=== PATIENT | female | born 1945 | race Caucasian/White ===

== ENCOUNTER → 2019-04-09 18:57 | Outpatient (BNVA) | payer MEDICARE, OTHER, SELFPAY | PROVIDERS: Family Provider Family Medicine; PCP Family Medicine; Visit Provider Nurse Practitioner | DX: J02.9 Acute pharyngitis, unspecified (principal); R09.82 Postnasal drip; J31.0 Chronic rhinitis | CPT/HCPCS: 87081; 87880 ==

== ENCOUNTER 2019-04-30 14:26 | Outpatient (CLI) | payer MEDICARE, OTHER, SELFPAY ==
[2019-04-30 15:30] LABS: Basophils % 0.2 %; Eosinophils # 0.6 10^3/uL (0.0-0.8); Eosinophils % 10.6 %; Hematocrit 37.6 % (37.0-47.0); Hemoglobin 12.6 g/dL (11.5-15.3); Lymphocytes # 1.8 10^3/uL (0.8-4.8); Lymphocytes % 32.1 %; Mean Corpuscular HGB Conc 33.5 g/dL (30.0-36.0); Mean Corpuscular Hemoglobin 32.2 pg (28.0-34.0); Mean Corpuscular Volume 96.2 fL (81-99); Mean Platelet Volume 9.3 fL (7.4-10.4); Monocytes # 0.5 10^3/uL (0.2-0.9); Monocytes % 8.4 %; Neutrophils # 2.6 10^3/uL (1.8-7.7); Neutrophils % 48.3 %; Nucleated Red Blood Cells % 0 %; Platelet Count 167 10^3/cmm (130-400); Red Blood Count 3.91 10^6/uL (4.1-5.3); Red Cell Distribution Width 13.5 % (12.1-15.1); White Blood Count 5.5 10^3/uL (4.0-10.0)
[2019-04-30 15:51] LABS: Alanine Aminotransferase 16 U/L (0-33); Albumin Level 4.3 g/dL (3.5-5.2); Alkaline Phosphatase 70 IU/L (35-105); Anion Gap 14.6 (5-19); Aspartate Amino Transferase 19 U/L (0-32); Blood Urea Nitrogen 18 mg/dL (8-23); Calcium 9.6 mg/dL (8.5-10.5); Carbon Dioxide 29 mmol/L (22-29); Chloride 99 mmol/L (98-107); Free T4 Free Thyroxine 1.33 ng/dL (0.82-1.77); Globulin 1.9 g/dL (1.3-4.6); Glucose 112 mg/dL (65-115); Lactate Dehydrogenase 220 U/L (135-214); Potassium 3.6 mmol/L (3.5-5.1); Sodium 139 mmol/L (136-145); Thyroid Stimulating Hormone 4.13 uIU/mL (0.27-4.20); Total Bilirubin 0.3 mg/dL (0.15-1.2); Total Protein 6.2 g/dL (6.6-8.7)
--- NOTE | 2019-05-03 07:32 | ONC FU_ITS ---
Dr. Pablo Patient Follow-Up Note Patient: Lexy Chawla Unit #: [id number]: 1945 Dicatated By: Wade Pablo M.D.Date of Visit:Apr 30, 2019 Onc Med Follow-up/Prog Note Chief Complaint: Lymphoma. 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 She had presented with an enlarging right supraclavicular mass. A CT of the neck on 02/02/2015 showed right supraclavicular lymphadenopathy, prominent nasopharyngeal soft tissue and a small right upper lobe pulmonary nodule. An ultrasound guided biopsy on 02/02/2015 revealed germinal cell phenotype diffuse large B-cell lymphoma, with immunohistochemistry positive for CD20, CD10, mom 1, BCL 2 and BCL 6. Ki-67 was elevated at 80-90%. Non-Hodgkin???s lymphoma panel by FISH was positive for BCL 6 rearrangement, MYC rearrangement, IGH/MYC translocation, and IGH rearrangement. Double hit lymphoma was suspected. She was first seen by Dr. Rausch on 02/17/2015. MYC rearrangement was confirmed by IHC. Bone marrow biopsy was negative for involvement. Staging PET/CT on 02/21/2015 showed single right supraclavicular lymph node with SUV of 25.7 and spleen with SUV was 7.5. Direct visualization of nasopharyngeal tissue by ENT surgeon was unrevealing, thus clinical stage IIIA disease. Right-sided Port-A-Cath placed. Hepatitis B serology was negative. Echocardiogram showed EF 45-50%. MUGA scan showed EF 61.5%. Uric acid 6.1, creatinine 1.0, baseline LDH increased at 270. Because of significant disconnect between ultrasound and the nuclear study of ejection fraction, anthracycline therapy was not recommended until further evaluation. She received 2 cycles of R-CEOP regimen on 03/11/14 - 04/01/15. She tolerated it remarkably well, although she had some mild thrombocytopenia and mild mucositis. Her further cardiac workup showed a preserved ejection fraction by Sestamibi stress test. As such, she was recommended to receive dose adjusted R- EPOCH therapy under the care of Dr. Brown at [facility]. Cycle 2 of R- EPOCH with escalated doses was delivered on 05/18/2015. She developed an acute right arm superficial thrombophlebitis and severe pancytopenia. Further evaluation showed an acute left lower extremity DVT and small apical PE. In light of severe chemotherapy-induced pancytopenia, anticoagulation was not possible. She was admitted to the hospital and underwent IVC filter placement. Eliquis was eventually began in May 2015. She completed 4 cycles of R-EPOCH chemotherapy in July 2015. On 08/17/2015 she was hospitalized with diarrhea, vomiting, severe anemia requiring 4 units of packed red blood cell transfusion support while admitted. She was found to have UTI and Campylobacter colitis. She was discharged and completed the course of the antibiotics. 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 She was followed by Dr. Brown at [facility]. She was discharged from the hospital there and has started steroid therapy. She also started replacement IVIG for hypogammaglobulinemia. At that time her diarrhea had been getting worse again. Repeat stool cultures again were negative and the stool also tested negative for Clostridium difficile. She was seen in the emergency room on 01/01/2016. Her evaluation included CT abdomen/pelvis and a renal protocol CT, neither of which showed any acute abnormality. On 01/06/2016 she was started on Valtrex for suspected herpes zoster in the right lumbar distribution. She returned here on 01/21/2016 for a scheduled IVIG infusion. At that time she had increased swelling in the right leg. Venous Doppler showed right lower extremity DVT to the common femoral vein. There was also a small DVT on the left. She restarted anticoagulation with apixaban, which had been stopped the preceding month. Despite anticoagulation with apixaban, she continued to have significant swelling of the right leg, and repeat venous Doppler of the lower extremities on 02/04/2016 showed acute extensive right lower extremity DVT extending into the iliac vein. There was improved but persistent left DVT. At that point her anticoagulation was changed to therapeutic Lovenox. As of her follow-up visit with in in June 2016 she was still having problems with diarrhea. Her Lovenox dosage was reduced to 100 mg once daily, as she was having epistaxis with twice a day dosing. There was no evidence of recurrence of the lymphoma. In September 2016 she presented with an itchy skin eruption on both arms. She also developed a cystic appearing lesion in the left axilla. There was no associated lymphadenopathy. It resolved on treatment with Bactroban topically. Her surveillance CT scans of the chest, abdomen, and pelvis at [facility] on 10/17/2016 showed no findings to suggest recurrent or metastatic disease. Her CT scans at [facility] in April 2017 also showed no evidence of recurrent lymphoma in the chest, abdomen, or pelvis. At that point she had her Port-A-Cath venous access device removed, and she continued on observation/expectant management for the lymphoma. INTERIM HISTORY: In June 2018 she had been admitted to the hospital after presenting to the emergency room with chest pain. CT pulmonary angiogram on 06/18/2018 showed no evidence of pulmonary embolus. There was evidence of bibasilar and lingular subsegmental atelectasis. There was evidence of esophageal dilatation, and there was development of cardiomegaly. There was no axillary, supraclavicular, mediastinal, or hilar adenopathy noted. A subsequent echocardiogram showed normal left ventricular size and systolic function with estimated ejection fraction 55-60%. There were no significant changes compared to a prior echocardiogram from August 2015. With negative CT pulmonary angiogram she had further evaluation with a sestamibi be stress test. It showed a small area of mild reversibility suggestive of a small area of mild ischemia in the basal inferior wall. There were no significant EKG changes noted with the Lexiscan infusion and there was no evidence for Lexiscan induced chest pain or cardiac arrhythmia. She is seen for a follow-up visit. She has been feeling okay, though she does complain about having a lack of energy. She has very limited activity tolerance, as she tires out very quickly, particularly when she is using her arms. Her ECOG score is 2. She has good appetite, and she has continued to gain weight. By our scale she is up 8 pounds since February. She has not had fever. She does have some sweating at night. She recently was seen in urgent care for sore throat and cough. She was treated with antibiotic. At this point she is still having some residual cough, but she does not complain of shortness of breath or chest pain. She occasionally has nausea. She recently had a repeat EGD done in [place]. I did not receive a copy of that report. Her bowel and bladder function have been okay. She has pain in her right knee. She complains that her wrists and hands bother her, especially when she is driving. She has no focal neurologic symptoms. Medications: Cymbalta 1.5 Capsule (of 60 mg) Capsule Delayed Release Particles Oral daily, Levothyroxine Sodium 1 Tablet (of 25 mcg) Oral daily, Metoprolol Tartrate 1 Tablet (of 25 mg) Oral b.i.d., Multivitamin Adult 1 Tablet Oral daily, Pantoprazole Sodium 1 Tablet (of 40 mg) Tablet, enteric coated Oral daily, Ventolin HFA 1 puff(s) (of 108 (90 base) mcg/act) Aerosol, solution Inhalation q 4 hours, Voltaren Gel (jelly) Transdermal PRN, Xarelto 1 (20 mg) Tablet Oral daily Allergies: Clindamycin HCl and Penicillin V Potassium. Review of Systems: Constitutional - Her energy is low. She does some light work at home, but she tires quickly. Her appetite is good and her weight is steadily increasing. No fever, chills or hot flashes. She has some sweating at night. ECOG score is 2, ENMT - No sinus congestion/drainage. No mouth sores. She had a bad cough and sore throat a few weeks ago. She was treated with antibiotics. Her sore throat is gone, but she still has a slight cough. No difficulty swallowing, Hematologic/Lymphatic - No abnormal bruising or bleeding, Respiratory - She has some shortness of breath with activity. No pleuritic pain or hemoptysis, Cardiovascular - No angina pain. No palpitations, Gastrointestinal - She has to take a nausea pill every couple weeks or so. No vomiting. No heartburn or acid reflux. No diarrhea or constipation. No blood in the stool or black stools, Genitourinary (F) - No dysuria or hematuria. No urinary frequency. No urgency or incontinence, Musculoskeletal - She has pain in both wrists and her left knee, Integumentary - No skin complications, Neurologic - She has occasional headaches. She has dizziness if she gets up too quickly. No numbness/paresthesias or other focal neurologic symptoms, Psychiatric - No anxiety or depression. She sometimes takes Melatonin to help her sleep. Vital Signs: Performed on Apr 30, 2019 16:09 Height - 66.00 in Weight - 227.4 lbs (HIGH) BSA - 2.11 sq.m BMI - 36.70 (HIGH) Temperature - 96.0 F (LOW) Pulse - 94 /min Respiration - 18 /min BP - 126/79 mm(hg) O2 Sat - 95 % (LOW) Pain - 0 Physical Examination: Constitutional - She looks pretty good generally, Eyes - Sclerae nonicteric. Conjunctivae clear, ENMT - No lesions noted in the oral cavity, Hematologic/Lymphatic - No cervical, clavicular, or axillary adenopathy, Respiratory - Lungs are clear with good air movement bilaterally, Cardiovascular - Heart rhythm is regular. There is no murmur, gallop, or rub noted, Abdomen - Mildly distended but soft. Liver and spleen are not enlarged. There is no abdominal mass or ascites noted and there is no inguinal adenopathy, Extremities - No edema, Neurologic - No focal neurologic deficits noted. Lab/Imaging: Test performed on Apr 30, 2019 14:48 LDH (Total) 220 U/L Sodium 139 mmol/L T4, Free 1.33 ng/dL TSH 4.13 uIU/mL Potassium 3.6 mmol/L Chloride 99 mmol/L CO2 29 mmol/L Anion Gap 14.6 BUN 18 mg/dL Creatinine 1.1 mg/dL Cr Clearance (Est) 74.17 mL/min Glucose 112 mg/dL Calcium 9.6 mg/dL Protein, Total 6.2 g/dL Albumin 4.3 g/dL Globulin 1.9 g/dL Bilirubin, Total 0.3 mg/dL ALT (SGPT) 16 U/L AST (SGOT) 19 U/L Alkaline Phosphatase 70 IU/L WBC 5.5 10 3/uL RBC 3.91 10 6/uL HGB 12.6 g/dL HCT 37.6 % MCV 96.2 fL MCH 32.2 pg MCHC 33.5 g/dL RDW 13.5 % Platelet Count 167 10 3/cmm MPV 9.3 fL Neutrophils 2.6 10 3/uL Lymphocytes 1.8 10 3/uL Monocytes 0.5 10 3/uL Eosinophils 0.6 10 3/uL Basophils 0.0 10 3/uL Neutrophil % 48.3 % Lymphocyte % 32.1 % Monocyte % 8.4 % Eosinophil % 10.6 % Basophils % 0.2 % Impression: 1. 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 The disease involved right supraclavicular lymph node and spleen. 2. She received R-CEOP regimen for 2 cycles on 03/11/2014 - 04/01/15, because her cardiac ejection fraction was reported depressed at 45-50%. However further MUGA scan and Sestamibi stress test showed preserved ejection fraction, at more than 60%. 3. Her further treatment was changed to dose adjusted R-EPOCH. Cycle 4 completed in July 2015. 4. Her treatment was complicated with severe hematological toxicities, DVT and PE, and infectious colitis. She required hospitalization. She was on anticoagulation with apixaban. 5. She then developed severe pancytopenia with grade 4 neutropenia, severe cold autoimmune hemolytic anemia, and slightly worsening thrombocytopenia from her baseline. She also developed profound high volume diarrhea. The diarrhea initially improved on steroid therapy, but then worsened again. A specific cause was not determined. 6. She has been receiving replacement IVIG for hypogammaglobulinemia. It was last given on 01/21/2016. 7. In January 2016 she was diagnosed with deep vein thrombosis of the both legs, more extensive on the right. She restarted anticoagulation with apixaban. Repeat venous Doppler on 02/04/2016 showed acute extensive deep vein thrombosis of the right leg. She then continued anticoagulation with therapeutic Lovenox. As of June 2016 the dosage was reduced to 100 mg once daily due to recurrent epistaxis. During subsequent follow-up she had gradual improvement in her GI symptoms and in her energy/activity tolerance. She had transitioned her anticoagulation to rivaroxaban as of her follow-up visit in January 2017. Thus far during follow-up there has been no evidence of any further thromboembolism. Her surveillance CT scans at [facility] in April 2017 showed no evidence of recurrence of her lymphoma. In June 2018 she was admitted to the hospital with chest pain. CT pulmonary angiogram showed no pulmonary embolus. There was no evidence of recurrence of her lymphoma. Her subsequent cardiac evaluation was unrevealing. She continued on observation/expectant management for the lymphoma. At this point she continues to complain of lack of energy, and she has very limited activity tolerance. A specific cause has not been determined, but she has continued to gain weight, and that may be a contributing factor. There has been no evidence, though, of recurrence of the lymphoma. Plan: She remains on observation/expectant management. She is scheduled to have follow-up with Dr. Brown in July. I will plan to repeat CT scans in June ahead of that visit, as it will be a one-year interval from her last CT. I will plan a follow-up visit here in 6 months. In the meantime, I will check and see if she may qualify for some type of rehab with physical therapy. Signed By: Wade Pablo M.D. <<Signature on File>>
== END 2019-04-30 14:27 | disposition home or self-care (01) ==
LOC: ONCMED 14:31
PROVIDERS: Family Provider Family Medicine; PCP Family Medicine; Visit Provider Internal Medicine Medical Oncology
DX: Z08 Encounter for follow-up examination after completed treatment for malignant neoplasm (principal); Z85.72 Personal history of non-Hodgkin lymphomas; Z79.01 Long term (current) use of anticoagulants; Z92.21 Personal history of antineoplastic chemotherapy; Z86.711 Personal history of pulmonary embolism; Z95.828 Presence of other vascular implants and grafts; Z87.440 Personal history of urinary (tract) infections; Z86.718 Personal history of other venous thrombosis and embolism
CPT/HCPCS: 36415; 80053; 83615; 84439; 84443; 85025; 99214

== ENCOUNTER 2019-06-10 07:56 | Outpatient (CLI) | payer MEDICARE, OTHER, SELFPAY ==
--- NOTE | 2019-06-10 08:08 | CT_ITS ---
WS: [id number] CT CHEST, ABDOMEN AND PELVIS WITH CONTRAST HISTORY: LYMPHOMA TECHNIQUE: Contiguous 5 mm axial imaging performed through the chest, abdomen and pelvis with IV cont rast, oral contrast has been provided. Coronal and sagittal reformats chest. Coronal and sagittal ref ormats through the abdomen and pelvis. All CT scans at [facility] use at least one of the se dose optimization techniques: automated exposure control; mA and/or kV adjustment per patient size (includes targeted exams where dose is matched to clinical indication); or iterative reconstruction. CONTRAST: Visipaque 320; 95 mL IV. DLP: 2490.59 mGycm COMPARISON: 06/18/2018 and 01/04/[address]: No pulmonary nodule. There is mild subpleural thickening in the periphery of the RIGHT lowe r lobe. Similar to prior studies. No nodule or pneumonia. No mediastinal or hilar adenopathy. Heart s ize is normal. No pericardial or pleural effusion. Oral contrast present within the large portion of the esophagus to the elvira. Normal size aorta and pulmonary artery. Subcutaneous soft tissue nodule in the LEFT breast has been present on prior studies and is probably a sebaceous cyst measuring 1.[address]: Prior cholecystectomy. Long-term stability of a 1.6 cm cyst in the LEFT lobe of the liver . Mild central biliary dilatation is similar to prior studies and probably due to the cholecystectomy . Pancreas and spleen are negative. No adrenal mass. Large cyst upper pole RIGHT kidney measures 10.7 x 8.0 x 9.0 cm. No solid component. No renal obstruction. Mild atrophy of the LEFT kidney. No solid mass or obstruction. Mild atherosclerosis aorta. IVC filter at the level of the renal vein. No adenop athy, free fluid or free air. Appendix is normal. No GI tract obstruction. There are a few scattered diverticula in the sigmoid col on without acute inflammation. Pelvic CT: No free fluid in the pelvis. No adenopathy. Slight increase in thoracic kyphosis. No osteoblastic or osteolytic bone disease. CT/CT chest abd pel w con* IMPRESSION: 1. No lymphadenopathy within chest, abdomen or pelvis. 2. No pulmonary nodule or mass. 3. Prior cholecystectomy with mild stable central biliary dilatation. 4. RIGHT renal and hepatic cysts. 5. Sigmoid diverticulosis without acute diverticulitis. 6. Delayed esophageal emptying or gastroesophageal reflux to the level of the elvira.
[2019-06-10] MEDS: iohexol 300 mg/mL 50 mL Btl PO (09:23)
[2019-06-10] MEDS: iodixanol 320 mg/mL 100mL Btl IV (09:46)
== END 2019-06-10 07:57 | disposition home or self-care (01) ==
LOC: RADWPI 07:59
PROVIDERS: Family Provider Family Medicine; PCP Family Medicine; Visit Provider Internal Medicine Medical Oncology
DX: C85.90 Non-Hodgkin lymphoma, unspecified, unspecified site (principal); Q61.02 Congenital multiple renal cysts; K57.30 Diverticulosis of large intestine without perforation or abscess without bleeding
CPT/HCPCS: 71260; 74177; Q9967

== ENCOUNTER 2019-07-01 12:26 | Outpatient (RCR) | payer MEDICARE, OTHER, SELFPAY | END 2019-07-04 23:59 | disposition home or self-care (01) | LOC: SPT 12:26 | PROVIDERS: Family Provider Family Medicine; PCP Family Medicine; Referring Provider Internal Medicine Medical Oncology; Visit Provider Internal Medicine Medical Oncology | DX: M62.81 Muscle weakness (generalized) (principal); C83.31 Diffuse large B-cell lymphoma, lymph nodes of head, face, and neck | CPT/HCPCS: 97161 ==

== ENCOUNTER 2019-07-05 06:00 | Outpatient (RCR) | payer MEDICARE, OTHER, SELFPAY | END 2019-08-04 23:59 | disposition home or self-care (01) | LOC: SPT 06:00 | PROVIDERS: Family Provider Family Medicine; PCP Family Medicine; Referring Provider Internal Medicine Medical Oncology; Visit Provider Internal Medicine Medical Oncology | DX: M62.81 Muscle weakness (generalized) (principal); C83.31 Diffuse large B-cell lymphoma, lymph nodes of head, face, and neck | CPT/HCPCS: 97110 ==

== ENCOUNTER 2019-07-05 07:50 | Outpatient (CLI) | payer MEDICARE, OTHER, SELFPAY ==
[2019-07-05 14:39] LABS: Basophils % 0.3 %; Eosinophils # 0.2 10^3/uL (0.0-0.8); Eosinophils % 4.6 %; Hematocrit 41.5 % (37.0-47.0); Hemoglobin 13.7 g/dL (11.5-15.3); Lymphocytes # 1.3 10^3/uL (0.8-4.8); Lymphocytes % 32.4 %; Mean Corpuscular Hemoglobin 33.1 pg (28.0-34.0); Mean Corpuscular Volume 100.2 fL (81-99); Mean Platelet Volume 9.5 fL (7.4-10.4); Monocytes # 0.4 10^3/uL (0.2-0.9); Monocytes % 11.3 %; Neutrophils % 51.1 %; Nucleated Red Blood Cells % 0 %; Platelet Count 154 10^3/cmm (130-400); Red Blood Count 4.14 10^6/uL (4.1-5.3); Red Cell Distribution Width 13.3 % (12.1-15.1); White Blood Count 3.9 10^3/uL (4.0-10.0)
[2019-07-05 16:25] LABS: Alanine Aminotransferase 20 U/L (0-33); Albumin Level 4.1 g/dL (3.5-5.2); Alkaline Phosphatase 55 IU/L (35-105); Anion Gap 15.8 (5-19); Aspartate Amino Transferase 18 U/L (0-32); Blood Urea Nitrogen 19 mg/dL (8-23); Calcium 9.3 mg/dL (8.5-10.5); Carbon Dioxide 28 mmol/L (22-29); Chloride 103 mmol/L (98-107); Globulin 2.1 g/dL (1.3-4.6); Glucose 68 mg/dL (65-115); Lactate Dehydrogenase 192 U/L (135-214); Osmolality Calculated 291 mOsm/kg (285-295); Potassium 3.8 mmol/L (3.5-5.1); Sodium 143 mmol/L (136-145); Total Bilirubin 0.2 mg/dL (0.15-1.2); Total Protein 6.2 g/dL (6.6-8.7)
== END 2019-07-05 07:51 | disposition home or self-care (01) ==
LOC: ONCMED 14:19
PROVIDERS: Family Provider Family Medicine; PCP Family Medicine; Visit Provider Internal Medicine Medical Oncology
DX: C83.31 Diffuse large B-cell lymphoma, lymph nodes of head, face, and neck (principal); D80.1 Nonfamilial hypogammaglobulinemia; R00.0 Tachycardia, unspecified
CPT/HCPCS: 36415; 80053; 83615; 85025

== ENCOUNTER 2019-08-05 06:00 | Outpatient (RCR) | payer MEDICARE, OTHER, SELFPAY | END 2019-09-03 23:59 | disposition home or self-care (01) | LOC: SPT 06:00 | PROVIDERS: PCP Family Medicine; Visit Provider Internal Medicine Medical Oncology | DX: M62.81 Muscle weakness (generalized) (principal); C83.31 Diffuse large B-cell lymphoma, lymph nodes of head, face, and neck | CPT/HCPCS: 97110 ==

== ENCOUNTER 2019-10-29 13:54 | Outpatient (CLI) | payer MEDICARE, OTHER, SELFPAY ==
[2019-10-29 14:42] LABS: Basophils % 0.2 %; Eosinophils # 0.5 10^3/uL (0.0-0.8); Eosinophils % 10.9 %; Hematocrit 39.5 % (37.0-47.0); Hemoglobin 13.2 g/dL (11.5-15.3); Lymphocytes # 1.2 10^3/uL (0.8-4.8); Mean Corpuscular HGB Conc 33.4 g/dL (30.0-36.0); Mean Corpuscular Hemoglobin 32.3 pg (28.0-34.0); Mean Corpuscular Volume 96.6 fL (81-99); Mean Platelet Volume 9.2 fL (7.4-10.4); Monocytes # 0.5 10^3/uL (0.2-0.9); Monocytes % 10.3 %; Neutrophils # 2.38 10^3/uL (1.8-7.7); Neutrophils % 52.2 %; Nucleated Red Blood Cells % 0 %; Platelet Count 155 10^3/cmm (130-400); Red Blood Count 4.09 10^6/uL (4.1-5.3); Red Cell Distribution Width 13.2 % (12.1-15.1); White Blood Count 4.6 10^3/uL (4.0-10.0)
[2019-10-29 15:14] LABS: 25 Hydroxy Vitamin D 33 ng/mL (30-100); Alanine Aminotransferase 19 U/L (0-33); Albumin Level 4.3 g/dL (3.5-5.2); Alkaline Phosphatase 64 IU/L (35-105); Anion Gap 10.7 (5-19); Aspartate Amino Transferase 21 U/L (0-32); Blood Urea Nitrogen 18 mg/dL (8-23); Calcium 8.7 mg/dL (8.5-10.5); Carbon Dioxide 29 mmol/L (22-29); Chloride 104 mmol/L (98-107); Globulin 2.3 g/dL (1.3-4.6); Glucose 120 mg/dL (65-115); Lactate Dehydrogenase 224 U/L (135-214); Osmolality Calculated 288 mOsm/kg (285-295); Potassium 3.7 mmol/L (3.5-5.1); Sodium 140 mmol/L (136-145); Thyroid Stimulating Hormone 2.77 uIU/mL (0.27-4.20); Total Bilirubin 0.4 mg/dL (0.15-1.2); Total Protein 6.6 g/dL (6.6-8.7)
[2019-10-29 17:31] LABS: Free T4 Free Thyroxine 1.42 ng/dL (0.82-1.77)
--- NOTE | 2019-11-01 07:07 | ONC FU_ITS ---
Dr. Pablo Patient Follow-Up Note Patient: Lexy Chawla Unit #: [id number]: 1945 Dicatated By: Wade Pablo M.D.Date of Visit:Oct 29, 2019 Onc Med Follow-up/Prog Note Chief Complaint: Lymphoma. 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 She had presented with an enlarging right supraclavicular mass. A CT of the neck on 02/02/2015 showed right supraclavicular lymphadenopathy, prominent nasopharyngeal soft tissue and a small right upper lobe pulmonary nodule. An ultrasound guided biopsy on 02/02/2015 revealed germinal cell phenotype diffuse large B-cell lymphoma, with immunohistochemistry positive for CD20, CD10, mom 1, BCL 2 and BCL 6. Ki-67 was elevated at 80-90%. Non-Hodgkin???s lymphoma panel by FISH was positive for BCL 6 rearrangement, MYC rearrangement, IGH/MYC translocation, and IGH rearrangement. Double hit lymphoma was suspected. She was first seen by Dr. Rausch on 02/17/2015. MYC rearrangement was confirmed by IHC. Bone marrow biopsy was negative for involvement. Staging PET/CT on 02/21/2015 showed single right supraclavicular lymph node with SUV of 25.7 and spleen with SUV was 7.5. Direct visualization of nasopharyngeal tissue by ENT surgeon was unrevealing, thus clinical stage IIIA disease. Right-sided Port-A-Cath placed. Hepatitis B serology was negative. Echocardiogram showed EF 45-50%. MUGA scan showed EF 61.5%. Uric acid 6.1, creatinine 1.0, baseline LDH increased at 270. Because of significant disconnect between ultrasound and the nuclear study of ejection fraction, anthracycline therapy was not recommended until further evaluation. She received 2 cycles of R-CEOP regimen on 03/11/14 - 04/01/15. She tolerated it remarkably well, although she had some mild thrombocytopenia and mild mucositis. Her further cardiac workup showed a preserved ejection fraction by Sestamibi stress test. As such, she was recommended to receive dose adjusted R- EPOCH therapy under the care of Dr. Brown at [facility]. Cycle 2 of R- EPOCH with escalated doses was delivered on 05/18/2015. She developed an acute right arm superficial thrombophlebitis and severe pancytopenia. Further evaluation showed an acute left lower extremity DVT and small apical PE. In light of severe chemotherapy-induced pancytopenia, anticoagulation was not possible. She was admitted to the hospital and underwent IVC filter placement. Eliquis was eventually began in May 2015. She completed 4 cycles of R-EPOCH chemotherapy in July 2015. On 08/17/2015 she was hospitalized with diarrhea, vomiting, severe anemia requiring 4 units of packed red blood cell transfusion support while admitted. She was found to have UTI and Campylobacter colitis. She was discharged and completed the course of the antibiotics. 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 She was followed by Dr. Brown at [facility]. She was discharged from the hospital there and has started steroid therapy. She also started replacement IVIG for hypogammaglobulinemia. At that time her diarrhea had been getting worse again. Repeat stool cultures again were negative and the stool also tested negative for Clostridium difficile. She was seen in the emergency room on 01/01/2016. Her evaluation included CT abdomen/pelvis and a renal protocol CT, neither of which showed any acute abnormality. On 01/06/2016 she was started on Valtrex for suspected herpes zoster in the right lumbar distribution. She returned here on 01/21/2016 for a scheduled IVIG infusion. At that time she had increased swelling in the right leg. Venous Doppler showed right lower extremity DVT to the common femoral vein. There was also a small DVT on the left. She restarted anticoagulation with apixaban, which had been stopped the preceding month. Despite anticoagulation with apixaban, she continued to have significant swelling of the right leg, and repeat venous Doppler of the lower extremities on 02/04/2016 showed acute extensive right lower extremity DVT extending into the iliac vein. There was improved but persistent left DVT. At that point her anticoagulation was changed to therapeutic Lovenox. As of her follow-up visit with me in June 2016 she was still having problems with diarrhea. Her Lovenox dosage was reduced to 100 mg once daily, as she was having epistaxis with twice a day dosing. There was no evidence of recurrence of the lymphoma. In September 2016 she presented with an itchy skin eruption on both arms. She also developed a cystic appearing lesion in the left axilla. There was no associated lymphadenopathy. It resolved on treatment with Bactroban topically. Her surveillance CT scans of the chest, abdomen, and pelvis at [facility] on 10/17/2016 showed no findings to suggest recurrent or metastatic disease. Her CT scans at [facility] in April 2017 also showed no evidence of recurrent lymphoma in the chest, abdomen, or pelvis. In June 2018 she had been admitted to the hospital after presenting to the emergency room with chest pain. CT pulmonary angiogram on 06/18/2018 showed no evidence of pulmonary embolus. There was evidence of bibasilar and lingular subsegmental atelectasis. There was evidence of esophageal dilatation, and there was development of cardiomegaly. There was no axillary, supraclavicular, mediastinal, or hilar adenopathy noted. A subsequent echocardiogram showed normal left ventricular size and systolic function with estimated ejection fraction 55-60%. There were no significant changes compared to a prior echocardiogram from August 2015. With negative CT pulmonary angiogram she had further evaluation with a sestamibi be stress test. It showed a small area of mild reversibility suggestive of a small area of mild ischemia in the basal inferior wall. There were no significant EKG changes noted with the Lexiscan infusion and there was no evidence for Lexiscan induced chest pain or cardiac arrhythmia. Surveillance CT scans on 06/10/2019 showed no lymphadenopathy within the chest, abdomen, or pelvis and no other evidence of disease progression. She continued on observation/expectant management for the lymphoma. She is seen for a follow-up visit. She has been feeling pretty good generally. He still has limited activity, but she has been using a stair stepper at home and she is able to do light work. ECOG score is 1. She has good appetite. She has not had fever. She says the back of her neck is sometimes wet when she wakes up in the morning. She has been getting some small mouth sores, mainly on the cheeks and tip of the tongue. She has some shortness of breath, but her breathing generally is okay. She has a little bit of cough in the evening. She does not complain of chest pain. She occasionally has nausea. Her bowel function is somewhat inconsistent with intermittent episodes of diarrhea. She continues to have some bladder leakage. She occasionally feels a little achy, but she otherwise is not having joint or bone pain. She has just occasional headache and she occasionally has dysequilibrium. 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 Medications: Cymbalta 1.5 Capsule (of 60 mg) Capsule Delayed Release Particles Oral daily, Levothyroxine Sodium 1 Tablet (of 25 mcg) Oral daily, Metoprolol Tartrate 1 Tablet (of 25 mg) Oral b.i.d., Multivitamin Adult 1 Tablet Oral daily, Pantoprazole Sodium 1 Tablet (of 40 mg) Tablet, enteric coated Oral daily, Ventolin HFA 1 puff(s) (of 108 (90 base) mcg/act) Aerosol, solution Inhalation q 4 hours, Voltaren Gel (jelly) Transdermal PRN, Xarelto 1 (20 mg) Tablet Oral daily Allergies: Clindamycin HCl and Penicillin V Potassium. Review of Systems: Constitutional - She has been exercising at home and she is able to do light work. Her appetite is good. She has gained weight. She has not had fever. She has had some mild night sweating. ECOG score is 1, ENMT - She has had a few sores in her mouth. No sore throat or difficulty swallowing, Respiratory - She has some shortness of breath, but her breathing is okay. She tends to have some cough in the evening. No pleuritic pain or hemoptysis, Cardiovascular - No angina pain. No palpitations, Gastrointestinal - She occasionally has nausea. No heartburn or acid reflux. Her bowels are inconsistent with intermittent episodes of diarrhea. No blood in the stool or black stools, Genitourinary (F) - No dysuria or hematuria. No urinary frequency. She has some bladder leakage, Musculoskeletal - Her joints are occasionally a little achy, Integumentary - No skin rash, Neurologic - She occasionally has headache. The neuropathy in her feet is still bothering her a lot, Psychiatric - She occasionally has depression. She has been sleeping pretty well. Vital Signs: Performed on Oct 29, 2019 15:32 Height - 66.00 in Weight - 233.8 lbs (HIGH) BSA - 2.14 sq.m BMI - 37.74 (HIGH) Temperature - 97.8 F (LOW) Pulse - 82 /min Respiration - 24 /min BP - 152/94 mm(hg) (HIGH) O2 Sat - 98 % Pain - 0 Physical Examination: Constitutional - She looks pretty good generally, Eyes - Sclerae nonicteric. Conjunctivae clear, ENMT - No lesions noted in the oral cavity, Hematologic/Lymphatic - No cervical, clavicular, or axillary adenopathy, Respiratory - Lungs are clear with good air movement bilaterally, Cardiovascular - Heart rhythm is regular. There is no murmur, gallop, or rub noted, Abdomen - Mildly distended but soft. Liver and spleen are not enlarged. There is no abdominal mass or ascites noted and there is no inguinal adenopathy, Extremities - No edema. Dorsalis pedis pulses are palpable bilaterally, Neurologic - No focal neurologic deficits noted. Lab/Imaging: Test performed on Oct 29, 2019 14:14 LDH (Total) 224 U/L Sodium 140 mmol/L T4, Free 1.42 ng/dL TSH 2.77 uIU/mL Vitamin D (25-Hydroxy), Total 33 ng/mL Potassium 3.7 mmol/L Chloride 104 mmol/L CO2 29 mmol/L Anion Gap 10.7 BUN 18 mg/dL Creatinine 1.1 mg/dL Cr Clearance (Est) 76.26 mL/min Glucose 120 mg/dL Calcium 8.7 mg/dL Protein, Total 6.6 g/dL Albumin 4.3 g/dL Globulin 2.3 g/dL Bilirubin, Total 0.4 mg/dL ALT (SGPT) 19 U/L AST (SGOT) 21 U/L Alkaline Phosphatase 64 IU/L WBC 4.6 10 3/uL RBC 4.09 10 6/uL HGB 13.2 g/dL HCT 39.5 % MCV 96.6 fL MCH 32.3 pg MCHC 33.4 g/dL RDW 13.2 % Platelet Count 155 10 3/cmm MPV 9.2 fL Neutrophils 2.38 10 3/uL Lymphocytes 1.2 10 3/uL Monocytes 0.5 10 3/uL Eosinophils 0.5 10 3/uL Basophils 0.0 10 3/uL Neutrophil % 52.2 % Lymphocyte % 26.0 % Monocyte % 10.3 % Eosinophil % 10.9 % Basophils % 0.2 % NRBC % 0 % Impression: 1. 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 The disease involved right supraclavicular lymph node and spleen. 2. She received R-CEOP regimen for 2 cycles on 03/11/2014 - 04/01/15, because her cardiac ejection fraction was reported depressed at 45-50%. However further MUGA scan and Sestamibi stress test showed preserved ejection fraction, at more than 60%. 3. Her further treatment was changed to dose adjusted R-EPOCH. Cycle 4 completed in July 2015. 4. Her treatment was complicated with severe hematological toxicities, DVT and PE, and infectious colitis. She required hospitalization. She was on anticoagulation with apixaban. 5. She then developed severe pancytopenia with grade 4 neutropenia, severe cold autoimmune hemolytic anemia, and slightly worsening thrombocytopenia from her baseline. She also developed profound high volume diarrhea. The diarrhea initially improved on steroid therapy, but then worsened again. A specific cause was not determined. 6. She has been receiving replacement IVIG for hypogammaglobulinemia. It was last given on 01/21/2016. 7. In January 2016 she was diagnosed with deep vein thrombosis of the both legs, more extensive on the right. She restarted anticoagulation with apixaban. Repeat venous Doppler on 02/04/2016 showed acute extensive deep vein thrombosis of the right leg. She then continued anticoagulation with therapeutic Lovenox. As of June 2016 the dosage was reduced to 100 mg once daily due to recurrent epistaxis. During subsequent follow-up she had gradual improvement in her GI symptoms and in her energy/activity tolerance. She had transitioned her anticoagulation to rivaroxaban as of her follow-up visit in January 2017. Her surveillance CT scans at [facility] in April 2017 showed no evidence of recurrence of her lymphoma. In June 2018 she was admitted to the hospital with chest pain. CT pulmonary angiogram showed no pulmonary embolus. There was no evidence of recurrence of her lymphoma. Her subsequent cardiac evaluation was unrevealing. She continued on observation/expectant management for the lymphoma. Her surveillance CT scans in June 2019 showed no evidence of lymphadenopathy within the chest, abdomen, or pelvis and no other evidence of disease progression. At this point she continues have somewhat limited activity tolerance, but it does seem to be gradually improving. She continues to have episodes of diarrhea, those are just occasional now. She also still has significant neuropathy pain. Overall, though, she appears to be doing well clinically with no evidence of recurrence of the lymphoma and with no further thromboembolism. Plan: She remains on observation/expectant management. She would like to try something additional for her neuropathy pain, so I will have her start Lyrica initially at 75 mg twice daily. Her other medications remain the same. She will be scheduled for a follow-up visit in 6 months. Signed By: Wade Pablo M.D. <<Signature on File>>
== END 2019-10-29 13:55 | disposition home or self-care (01) ==
LOC: ONCMED 13:58
PROVIDERS: PCP Family Medicine; Visit Provider Internal Medicine Medical Oncology
DX: C83.38 Diffuse large B-cell lymphoma, lymph nodes of multiple sites (principal); E03.9 Hypothyroidism, unspecified; E55.9 Vitamin D deficiency, unspecified; D80.1 Nonfamilial hypogammaglobulinemia; G89.29 Other chronic pain; Z92.21 Personal history of antineoplastic chemotherapy; Z86.718 Personal history of other venous thrombosis and embolism; Z79.01 Long term (current) use of anticoagulants
CPT/HCPCS: 80053; 82306; 83615; 84439; 84443; 85025; 99214

== ENCOUNTER 2019-11-22 14:47 | Outpatient (CLI) | payer MEDICARE, OTHER, SELFPAY ==
--- NOTE | 2019-11-22 14:58 | MM_ITS ---
WS: [id number] SCREENING DIGITAL MAMMOGRAM WITH CAD HISTORY: SCREENING COMPARISON: 09/28/2018 and 08/03/2017 Bilateral CC and MLO views submitted. Computer aided detection analyzed. Breast composition: There are scattered areas of fibroglandular density. Irregular asymmetry upper-outer quadrant of the RIGHT breast at a posterior depth. Asymmetry measures 12 mm. LEFT breast is negative. MM/[place] [id number] IMPRESSION: BI-RADS: 0-Incomplete: Need additional imaging evaluation FOLLOW UP: Need Additional Imaging RIGHT breast: Spot compression views (CC and MLO). True ML. Ultrasound to follo w if abnormality persists.
== END 2019-11-22 14:48 | disposition home or self-care (01) ==
LOC: ONCMED 14:53
PROVIDERS: PCP Family Medicine; Visit Provider Internal Medicine Medical Oncology
DX: Z12.31 Encounter for screening mammogram for malignant neoplasm of breast (principal)
CPT/HCPCS: 77067

== ENCOUNTER 2019-12-24 09:39 | Outpatient (CLI) | payer MEDICARE, OTHER, SELFPAY ==
--- NOTE | 2019-12-24 09:45 | US_ITS ---
WS: [id number] ADDITIONAL VIEWS RIGHT BREAST RIGHT breast ultrasound, limited LEFT breast ultrasound, limited HISTORY: ABNORMAL MAMMOGRAM COMPARISON: 11/22/2019, 09/28/2018 and 07/16/2017 Compression views right CC and MLO projection. True ML also submitted. Persistent spiculated nodule measuring 6 mm at 10:00 in the posterior RIGHT breast. Nodule is of slig htly increased density. RIGHT breast ultrasound, limited. At 10:00, 3 cm from the nipple posteriorly is an area of shadowing and decreased echogenicity measuri ng 7 x 7 x 6 mm. Minimal increased vascularity. This corresponds to the mammographic abnormality. LEFT breast ultrasound. In the LEFT axilla there is a complex lobulated mass with mild through transmission measuring 2.0 x 1 .6 x 1.6 cm. This corresponds to an area of increasing density in the LEFT axilla. On multiple prior examinations there is a very superficial soft tissue nodule which has been stable over multiple prior studies. This corresponds to that nodule which is probably a sebaceous cyst. US/US breast RT limited* [id number] IMPRESSION: BI-RADS: 4-Suspicious Finding-Biopsy Should Be Considered FOLLOW-UP: Biopsy Recommended Ultrasound-guided biopsy recommended of the RIGHT breast mass at 10:00.
--- NOTE | 2019-12-25 13:05 | PC.NURSE ---
Called Dr. Pablo's nurse:Kaylynn about mammo results for 12/24/19. Mammo report has been given to Dr. Pablo to review, and will have Kaylynn make the order for biopsy.Erick HERZOG
== END 2019-12-24 09:40 | disposition home or self-care (01) ==
LOC: ONCMED 09:42
PROVIDERS: PCP Family Medicine; Visit Provider Internal Medicine Medical Oncology
DX: N63.11 Unspecified lump in the right breast, upper outer quadrant (principal); R92.8 Other abnormal and inconclusive findings on diagnostic imaging of breast; C83.31 Diffuse large B-cell lymphoma, lymph nodes of head, face, and neck
CPT/HCPCS: 76642; 77065

== ENCOUNTER 2020-01-02 12:00 | Outpatient (CLI) | payer MEDICARE, OTHER, SELFPAY ==
--- NOTE | 2020-01-02 13:30 | US_ITS ---
WS: [id number] ULTRASOUND-GUIDED RIGHT BREAST BIOPSY HISTORY: Right breast mass COMPARISON: 12/24/2019 and 11/22/2019 Procedure, risks and complications are explained to the patient. Medications are reviewed. Consent is obtained. The mass in the RIGHT breast is localized with ultrasound. Mass localized to cysts and o'clock, 3 cm from the nipple. Skin is cleansed with ChloraPrep and anesthetized with 1% buffered lidocaine. Small dermatome is made. Under sterile conditions mass is biopsied with a 14-gauge Achieve needle. Multiple core biopsies are performed. Material placed in formalin and sent to pathology for review. No compli cations encountered. Breast tissue marker (Bard ultrasound enhanced ribbon): Single. Patient left the radiology suite with no complications. Patient is [place] [facility] [facility] with any concerns. US/[place] [id number] IMPRESSION: 1. Uncomplicated core needle biopsy RIGHT breast mass at 10:00. PATHOLOGY: -Few atypical cells seen in a background of stromal sclerosis and de nse fibrotic tissue. RECOMMENDATION: Lesion has a suspicious spiculated appearance on mammography an d a suspicious morphology on ultrasound. Recommend wire localization with surgi tayla resection. RECOMMEND BREAST SURGERY CONSULTATION
== END 2020-01-02 12:01 | disposition home or self-care (01) ==
LOC: RAD 12:01
PROVIDERS: PCP Family Medicine; Visit Provider Obstetrics & Gynecology
DX: N63.11 Unspecified lump in the right breast, upper outer quadrant (principal)
CPT/HCPCS: 19083; 88305

== ENCOUNTER → 2020-01-21 15:39 | Outpatient (BNVA) | payer MEDICARE, OTHER, SELFPAY | PROVIDERS: PCP Family Medicine; Visit Provider Surgery | DX: Z20.828 Contact with and (suspected) exposure to other viral communicable diseases (principal) | CPT/HCPCS: 87635 ==

== ENCOUNTER 2020-01-27 07:34 | Day surgery (SDC) | payer MEDICARE, OTHER, SELFPAY ==
[2020-01-24 10:34] VITALS: BMI 38.7
[2020-01-27] VITALS (10 sets, daily range): BP systolic 68–171; BP diastolic 46–101; PULSE 93–112; RESP 13–20; TEMP 36.1–36.7; O2SAT 95–100
--- NOTE | 2020-01-27 | US_ITS ---
WS: [id number] ULTRASOUND-GUIDED RIGHT BREAST NEEDLE LOCALIZATION HISTORY: MASS OF RIGHT BREAST, 10:00. Procedure, risks and complications were explained to the patient. Consent is obtained. Skin is cleansed with ChloraPrep and anesthetized with 1% buffered lidocaine. Needle and guidewire pl aced to the area of concern with no complications. Ultrasound guidance performed during the needle lo calization. Guidewire is left within the lesion. Guidewire secured and no complications encountered. Patient is being transported to the OR suite. Specimen radiograph is also reviewed. Lesion is contained within the specimen and the wire. RECOMMENDATIONS: Surgical and oncologic follow-up. US/US breast surgical specimen IMPRESSION: 1. Uncomplicated RIGHT breast needle localization of lesion at 10:00. PATHOLOGY RESULTS: Invasive ductal carcinoma. Anterior margin is focally involv ed.
--- NOTE | 2020-01-27 | US_ITS ---
WS: [id number] ULTRASOUND-GUIDED RIGHT BREAST NEEDLE LOCALIZATION HISTORY: MASS OF RIGHT BREAST, 10:00. Procedure, risks and complications were explained to the patient. Consent is obtained. Skin is cleansed with ChloraPrep and anesthetized with 1% buffered lidocaine. Needle and guidewire pl aced to the area of concern with no complications. Ultrasound guidance performed during the needle lo calization. Guidewire is left within the lesion. Guidewire secured and no complications encountered. Patient is being transported to the OR suite. Specimen radiograph is also reviewed. Lesion is contained within the specimen and the wire. RECOMMENDATIONS: Surgical and oncologic follow-up. US/[place] [id number] IMPRESSION: 1. Uncomplicated RIGHT breast needle localization of lesion at 10:00. PATHOLOGY RESULTS: Invasive ductal carcinoma. Anterior margin is focally involv ed.
--- NOTE | 2020-01-27 08:07 | W.PM.OPSUD ---
Surgery/Procedure H&P Update DATE OF PROCEDURE: January 27, 2020 DATE H&P PERFORMED: 01/17/20 H&P UPDATE INFORMATION: I have reviewed H&P completed within last 30 days, I have examined patient prior to procedure and No changes to prior documentation PREOP DIAGNOSIS: Right breast mass PLANNED PROCEDURE: Operation Date: 01/27/20 10:45 Proposed Procedures p Breast Biopsy Needle Localization [id number] N63.10 R22.9(Right) - Renny Berry MD s Breast Biopsy lumpectomy(Right) - Renny Berry MD s Excision Mass of left axilla subcutaneous mass(Right) - Renny Berry MD
[2020-01-27] MEDS: sodium chloride 0.9% 1,000 ML 30 ML IV (09:00)
--- NOTE | 2020-01-27 09:14 | P.ANESASSM_ITS ---
Pre-Anesthetic Assessment Pre-Anesthetic Assessment: Height/Weight: Height 1.68 m Weight 108.862 kg Temp Pulse Resp BP Pulse Ox 97.2 F L 112 H 18 154/101 96 01/27/20 07:49 01/27/20 07:49 01/27/20 07:49 01/27/20 07:49 01/27/20 07:49 Preop Diagnosis: Right breast mass Proposed Procedure: Operation Date: 01/27/20 10:45 Proposed Procedures p Breast Biopsy Needle Localization [id number] N63.10 R22.9(Right) - Renny Berry MD s Breast Biopsy lumpectomy(Right) - Renny Berry MD s Excision Mass of left axilla subcutaneous mass(Right) - Renny Berry MD Familial anesthetic complications: none Was Beta Jose taken within 24 hours: Yes Last intake: Intake Last Liquid Date 01/26/20 Last Solid Date 01/26/20 Social: Social History: No alcohol and No tobacco Exam: Pre-Anes Outpt Exam: alert, oriented x 3, clear to auscultation bilaterally and regular rate & rhythm Airway: MP: 3 Dentition: False CV/HEM: CV/HEM: DVT and HTN Comments: 2019 stress test - showed minimal ischemia Metabolic: Metabolic: Morbid obesity and Thyroid Anesthetic Plan: ASA status: 3 Anesthesia: MAC Risk of > 500 ml blood lo ss (7ml/kg in children): No PFSH Anesthesia PFSH: Medical History Chronic cystitis Diverticulitis GERD (gastroesophageal reflux disease) History of hypothyroidism Hx of deep venous thrombosis left leg Hx of vaginal bleeding Patient presents again with complaint of bleeding which she believes came from the vaginal area. This occurred last night. On exam today no actual bleeding seen anywhere. Stitch from her vault suspension was again noted today on exam. No granulation tissue was noted on exam. However, due to this intermittent reporting of bleeding, I went ahead and removed the stitch. On removal, the stitch appeared to not be attached to anything other than the vaginal wall. Patient still had a urethral caruncle noted with a small spot adjacent to it which is suspicious for possible bleeding from that area. With her being on the Xarelto, she may have bled from either the caruncle or from the stitch in the vagina. Questions were answered. Follow-up as needed. Hypertension IBS (irritable bowel syndrome) Unspecified B-cell lymphoma, lymph nodes of head, face, and neck (~2016) in remission-- under care of Samy pretty Surgical History H/O colonoscopy 2013 H/O esophagogastroduodenoscopy 2018 H/O ovarian cystectomy (~1996) Left-- Laparotomy History of bunionectomy (~2001) left History of laparotomy (~1996) left ovarian cystectomy History of surgery on right wrist (~12/2010) History of tonsillectomy and adenoidectomy (~1951) Hx of breast biopsy (~1993) 1993-- 1 cyst removed from left breast and 2 cysts removed from right breast. All pathologies were benign. Hx of cholecystectomy (~02/2005) Laparoscopic. Performed by Dr. Blanton at [facility] in [place], [place]. Hx of hysterectomy (~04/08/14) with vaginal repair------- TVH, LSO, Uterosacral ligament suspension, Anterior vaginal repair, Perineorrhaphy, Single incision suburethral sling, Cystoscopy, Lysis of bowel adhesions. 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 Performed by Dr. Remi Musa at [facility] in [place], [place]. Surgical findings: Third degree cystocele, second to third degree uterine prolapse, adhesions of the sigmoid to the left fundal portion of the uterus and to the left ovary, left ovarian cyst present. Family History Grandfather Diabetes Maternal Mother Breast cancer dx at age 45 Denies family history of Colon cancer Ovarian cancer Heart disease Hypercholesteremia Anesthesia complication Bleeding disorder Hypertension Uterine cancer Thyroid disease Stroke Social History Smoking and tobacco status: never smoked Alcohol intake: never Household members: spouse Marital status: Current occupational status: employed History of recent travel: No Additional social history: - Tobacco use: Never Alcohol use: Occasional Drug use: Never Data Anesthesia Cardiac Studies: No Data to Display
[2020-01-27] MEDS: vancomycin 1,000 MG in sodium chloride 0.9% 250 ML 100 MG IV (09:30)
[2020-01-27] MEDS: lidocaine 1% INJ 20 mL IM (11:30)
[2020-01-27] MEDS: HYDROcodone-acetaminophen 5-325 mg Tablet 1 TAB PO (12:40)
--- NOTE | 2020-01-27 12:52 | PM.OP ---
Operative Report Date of procedure: January 27, 2020 Pre-op Diagnosis: 1: Right breast mass10:00 position 3 mm from the nipple Pre-op Diagnosis: 2: Symptomatic 2 x 2 centimeter subcutaneous mass left axilla Post-op diagnosis: same Procedure Done: Wire localization lumpectomy right breast Excision of subcutaneous mass left axilla Specimens removed/disposition: Subcutaneous mass left axilla Lumpectomy specimen right breast Surgeon: Renny Berry Anesthesia: General Condition: stable Disposition: PACU Procedure: The wire localization of the mammographic abnormality was performed by the radiologist under ultrasound guidance and the patient was transferred to operating room and placed under MAC after IV antibiotic had been administered. The right breast was prepped and draped in a manner . A curvilinear incision was made over the areolar margin at 9'o clock inferior to the marking over the mammographic abnormality, subcutaneous tissue was divided and skin flaps were raised medially and laterally. The localization wire was grasped through the incision and using electrocautery the wire along with the breast tissue containing mammographic abnormality was dissected free from the surrounding tissue. Using 2-0 silk suture, short stitch was placed superiorly and a long stitch was placed laterally.The wound was irrigated with saline, hemostasis ensured with electrocautery and subcutaneous tissues approximated using 3-0 running Vicryl suture and skin was closed using running subcuticular 4-0 Monocryl sutures and surgical glue. Fluffs were used for pressure dressing. The lumpectomy specimens were sent to mammography to obtain radiological confirmation of complete excision of the mammographic abnormality. The left axilla was prepped and draped in a sterile manner. 1% lidocaine was infiltrated around the subcutaneous mass palpable in the left axilla. Using 15 blade an elliptical incision was made around the punctum and the cyst was dissected free from the surrounding subcutaneous tissue and sent to pathology. Wound was irrigated saline, subcutaneous tissue approximated using interrupted 3-0 Vicryl suture and skin was closed using running subcuticular 4-0 Monocryl suture and surgical glue. Patient was transferred to recovery room and stable condition
--- NOTE | 2020-01-27 15:09 | ANE.PACU2 ---
Inpatient post-anesthesia follow up: Airway intact: Yes Vital signs: Temperature 97.8 F Pulse Rate 100 Respiratory Rate 18 Blood Pressure 100/67 Pulse Oximetry 95 Oxygen Delivery Me thod Room Air Oxygen Flow Rate 8 Fraction of Inspir ed Oxygen Hydration adequate: Yes Nausea and vomiting: No Pain level: 1 Mental status: Baseline
[2020-02-10 10:30] LABS: Miscellaneous Test See Scanned Lab Rpt
== END 2020-01-27 13:20 | disposition home or self-care (01) ==
PROVIDERS: PCP Family Medicine; Visit Provider Surgery
PROC: (CPT 11402; principal; 2020-01-27 10:45)
PROC: (CPT 11402; 2020-01-27 10:45)
PROC: (CPT 11402; 2020-01-27 10:45)
DX: C50.911 Malignant neoplasm of unspecified site of right female breast (principal); L72.0 Epidermal cyst; I10 Essential (primary) hypertension; Z86.718 Personal history of other venous thrombosis and embolism; E66.01 Morbid (severe) obesity due to excess calories; Z68.38 Body mass index [BMI] 38.0-38.9, adult; E03.9 Hypothyroidism, unspecified
CPT/HCPCS: 11402; 12031; 19301; 12345; 19285; 88305; J2405; J2704; J3010; J3370; J3490; J7030; J7050

== ENCOUNTER 2020-02-13 13:32 | Outpatient (CLI) | payer MEDICARE, OTHER, SELFPAY ==
--- NOTE | 2020-02-14 00:44 | ONC CON_ITS ---
Dr. aPblo New Patient Note Patient: Lexy Chawla Unit #: [id number]: 1945 Dicatated By: Wade Pablo M.D.Date of Visit: Feb 13, 2020 Onc MED New Patient/Consult Referring Physician: Dr. Robbie Dasilva M.D. Chief Complaint: Lymphoma/breast cancer. 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 Her lymphoma was diagnosed in 2014, when she presented with an enlarging right supraclavicular mass. A CT of the neck on 02/02/2015 showed right supraclavicular lymphadenopathy, prominent nasopharyngeal soft tissue and a small right upper lobe pulmonary nodule. An ultrasound guided biopsy on 02/02/2015 revealed germinal cell phenotype diffuse large B-cell lymphoma, with immunohistochemistry positive for CD20, CD10, mom 1, BCL 2 and BCL 6. Ki-67 was elevated at 80-90%. Non-Hodgkin???s lymphoma panel by FISH was positive for BCL 6 rearrangement, MYC rearrangement, IGH/MYC translocation, and IGH rearrangement. Double hit lymphoma was suspected. She was first seen by Dr. Rausch on 02/17/2015. MYC rearrangement was confirmed by IHC. Bone marrow biopsy was negative for involvement. Staging PET/CT on 02/21/2015 showed single right supraclavicular lymph node with SUV of 25.7 and spleen with SUV was 7.5. Direct visualization of nasopharyngeal tissue by ENT surgeon was unrevealing, thus clinical stage IIIA disease. Right-sided Port-A-Cath placed. Hepatitis B serology was negative. Echocardiogram showed EF 45-50%. MUGA scan showed EF 61.5%. Uric acid 6.1, creatinine 1.0, baseline LDH increased at 270. Because of significant disconnect between ultrasound and the nuclear study of ejection fraction, anthracycline therapy was not recommended until further evaluation. She received 2 cycles of R-CEOP regimen on 03/11/14 - 04/01/15. She tolerated it remarkably well, although she had some mild thrombocytopenia and mild mucositis. Her further cardiac workup showed a preserved ejection fraction by Sestamibi stress test. As such, she was recommended to receive dose adjusted R- EPOCH therapy under the care of Dr. Brown at [facility]. Cycle 2 of R- EPOCH with escalated doses was delivered on 05/18/2015. She developed an acute right arm superficial thrombophlebitis and severe pancytopenia. Further evaluation showed an acute left lower extremity DVT and small apical PE. In light of severe chemotherapy-induced pancytopenia, anticoagulation was not possible. She was admitted to the hospital and underwent IVC filter placement. Eliquis was eventually began in May 2015. She then received additional chemotherapy with 4 cycles of R-EPOCH, completed in July 2015. On 08/17/2015 she was hospitalized with diarrhea, vomiting, severe anemia requiring 4 units of packed red blood cell transfusion support while admitted. She was found to have UTI and Campylobacter colitis. She was discharged and completed the course of the antibiotics. 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 She was followed by Dr. Brown at [facility]. She was discharged from the hospital there and began steroid therapy. She also started replacement IVIG for hypogammaglobulinemia. At that time her diarrhea had been getting worse again. Repeat stool cultures again were negative and the stool also tested negative for Clostridium difficile. She was seen in the emergency room on 01/01/2016. Her evaluation included CT abdomen/pelvis and a renal protocol CT, neither of which showed any acute abnormality. On 01/06/2016 she was started on Valtrex for suspected herpes zoster in the right lumbar distribution. She returned here on 01/21/2016 for a scheduled IVIG infusion. At that time she had increased swelling in the right leg. Venous Doppler showed right lower extremity DVT to the common femoral vein. There was also a small DVT on the left. She restarted anticoagulation with apixaban, which had been stopped the preceding month. Despite anticoagulation with apixaban, she continued to have significant swelling of the right leg, and repeat venous Doppler of the lower extremities on 02/04/2016 showed acute extensive right lower extremity DVT extending into the iliac vein. There was improved but persistent left DVT. At that point her anticoagulation was changed to therapeutic Lovenox. As of her follow-up visit with wa in June 2016 she was still having problems with diarrhea. Her Lovenox dosage was reduced to 100 mg once daily, as she was having epistaxis with twice a day dosing. There was no evidence of recurrence of the lymphoma. In September 2016 she presented with an itchy skin eruption on both arms. She also developed a cystic appearing lesion in the left axilla. There was no associated lymphadenopathy. It resolved on treatment with Bactroban topically. Her surveillance CT scans of the chest, abdomen, and pelvis at [facility] on 10/17/2016 showed no findings to suggest recurrent or metastatic disease. Her CT scans at [facility] in April 2017 also showed no evidence of recurrent lymphoma in the chest, abdomen, or pelvis. In June 2018 she had been admitted to the hospital after presenting to the emergency room with chest pain. CT pulmonary angiogram on 06/18/2018 showed no evidence of pulmonary embolus. There was evidence of bibasilar and lingular subsegmental atelectasis. There was evidence of esophageal dilatation, and there was development of cardiomegaly. There was no axillary, supraclavicular, mediastinal, or hilar adenopathy noted. A subsequent echocardiogram showed normal left ventricular size and systolic function with estimated ejection fraction 55-60%. There were no significant changes compared to a prior echocardiogram from August 2015. With negative CT pulmonary angiogram she had further evaluation with a sestamibi be stress test. It showed a small area of mild reversibility suggestive of a small area of mild ischemia in the basal inferior wall. There were no significant EKG changes noted with the Lexiscan infusion and there was no evidence for Lexiscan induced chest pain or cardiac arrhythmia. Surveillance CT scans on 06/10/2019 showed no lymphadenopathy within the chest, abdomen, or pelvis and no other evidence of disease progression. She continued on observation/expectant management for the lymphoma. Her screening mammogram on 11/22/2019 was BI-RADS 0, incomplete. Findings included an irregular asymmetry in the upper outer quadrant of the right breast measuring 12 mm. Additional mammographic views and right breast ultrasound on 12/24/2019 was BI-RADS 4, suspicious. Mammogram reported a persistent spiculated nodule measuring 6 mm at the 10 o'clock position of the right breast. Ultrasound showed an area of shadowing and decreased echogenicity measuring 7 x 7 x 6 mm. Biopsy was recommended. Ultrasound of the left axilla at that time showed a complex lobulated mass measuring 2.0 x 1.6 x 1.6 cm, appearance of which was felt to be consistent with sebaceous cyst. Ultrasound-guided biopsy of the right breast mass on 01/02/2020 showed benign ductal epithelium in a background of stromal sclerosis and dense fibrotic tissue. On 01/27/2020 she underwent excisional biopsy of the breast mass under wire localization. The procedure also included excision of the left axillary mass. Pathology on the excisional biopsy showed grade 1 invasive ductal carcinoma measuring 0.7 cm in greatest dimension. The anterior margin was noted to be focally positive. The breast prognostic profile showed ER positive at 99% and SC positive at 99%. The tumor was negative for overexpression of HER-2/justyn, 0+ by IHC and amplification ratio by FISH of 0.9 with 1.7 HER-2 copies/cell. The Ki-67 was favorable at 4%. Pathology on the left axillary mass showed epithelial inclusion cyst. She is seen now for further management of the breast cancer. She says she is feeling fine, though she does have limited activity. She is able to do some housework. ECOG score is 1. She has good appetite. She has no fever, night sweats, or hot flashes. She still has some shortness of breath, and she has nonproductive cough. She has not been having chest pain. Her bowel function is inconsistent, but she does not have diarrhea. She does have some bladder incontinence. She has pain in her right knee. She has ongoing problems with neuropathy in her legs and feet, mainly with tingling. She sometimes does have pain in her feet. She had natural menopause in her late 50s. She did not receive any hormone replacement therapy. She underwent hysterectomy and left salpingo-oophorectomy in 2014. Pathology was benign. Past Medical History: Her medical history includes lymphoma, anxiety, cystitis, diverticulitis, DVT, dyspepsia, gastritis with erosions, irritable bowel syndrome with diarrhea, peripheral neuropathy (seen Dr. Serrato, had nerve studies performed), sinusitis, vitamin D deficiency, and shingles in 2016. Past Surgical History: Her other surgical/procedural history includes benign breast lumps removed, cholecystectomy, right wrist fusion, port removal in 2018, pneumonia vaccine in 2017, flu vaccine in 2017, flu vaccine in 2016, port placement in 2016, colonoscopy in 2015, upper GI in 2015, hysterectomy in 2015, and left bunionectomy in 2015. Medications: Cymbalta 1.5 Capsule (of 60 mg) Capsule Delayed Release Particles Oral daily, Levothyroxine Sodium 1 Tablet (of 25 mcg) Oral daily, Metoprolol Tartrate 1 Tablet (of 25 mg) Oral b.i.d., Multivitamin Adult 1 Tablet Oral daily, Pantoprazole Sodium 1 Tablet (of 40 mg) Tablet, enteric coated Oral daily, Pregabalin 1 Capsule (of 150 mg) Oral b.i.d., Ventolin HFA 1 puff(s) (of 108 (90 base) mcg/act) Aerosol, solution Inhalation q 4 hours, Voltaren Gel (jelly) Transdermal PRN, Xarelto 1 (20 mg) Tablet Oral daily Allergies: Clindamycin HCl and Penicillin V Potassium. Social History: Ms. Chawla is . She is a non-smoker. She drinks occasionally. Family History: Ms. Chawla's mother at age 78: breast cancer. Factor V Leiden. Review Of Symptoms: Constitutional - She is feeling fine. She does have limited activity, but she is able to do some housework. Appetite is good and weight is stable. No fever, night sweats, or hot flashes. ECOG score is 1, ENMT - No sinus congestion/drainage. No mouth sores. No sore throat or difficulty swallowing, Hematologic/Lymphatic - No abnormal bruising or bleeding, Respiratory - She has shortness of breath and she has nonproductive cough. No pleuritic pain or hemoptysis, Cardiovascular - No angina pain. No palpitations, Gastrointestinal - No nausea or vomiting. No heartburn or acid reflux. Her bowel function remains inconsistent. Her stools are sometimes soft, but she is not having diarrhea. No blood in the stool or black stools, Genitourinary (F) - No dysuria or hematuria. No urinary frequency. She has some incontinence, Musculoskeletal - She has pain in her right knee and she also has some pain in both feet, Integumentary - No skin rash, Neurologic - She has just occasional headache. She has dizziness if she gets up too fast. She has neuropathy in her legs and feet, mainly a tingly feeling but occasionally also pain, Psychiatric - No anxiety or depression. No insomnia. Vital Signs: Performed on Feb 13, 2020 14:13: 0, 39.71 (HIGH), 2.18 sq.m, 66.00 in, 94 % (LOW), 125 /min (HIGH), 20 /min, 175/77 mm(hg) (HIGH), 98.3 F (LOW), 246.0 lbs (HIGH), and Performed on Mar 15, 2017 13:05: 7. Physical Examination: Constitutional - She looks pretty good generally, Eyes - Sclerae nonicteric. Conjunctivae clear, ENMT - No lesions noted in the oral cavity, Hematologic/Lymphatic - No cervical or clavicular adenopathy. There is induration at the biopsy site in the left axilla. There is no axillary adenopathy noted, Respiratory - Lungs are clear with good air movement bilaterally, Cardiovascular - Heart rhythm is regular. There is a mild tachycardia. There is no murmur, gallop, or rub noted, Abdomen - Mildly distended but soft. Liver and spleen are not enlarged. There is no abdominal mass or ascites noted and there is no inguinal adenopathy, Extremities - Mild lower extremity edema. There are few scattered ecchymoses, Neurologic - No focal neurologic deficits noted. Impression: 1. Patient with grade 1 infiltrating ductal carcinoma of the right breast, ER/SC positive and HER-2/justyn negative. Staging is incomplete. 2. She underwent excisional biopsy of the right breast mass on 01/27/2020 with pathology showing focal involvement at the anterior margin. 3. 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 The disease involved right supraclavicular lymph node and spleen. 4. She received R-CEOP regimen for 2 cycles on 03/11/2014 - 04/01/15, because her cardiac ejection fraction was reported depressed at 45-50%. However further MUGA scan and Sestamibi stress test showed preserved ejection fraction, at more than 60%. 5. Her further treatment was changed to dose adjusted R-EPOCH. Cycle 4 completed in July 2015. 6. Her treatment was complicated with severe hematological toxicities, DVT and PE, and infectious colitis. She required hospitalization. She was on anticoagulation with apixaban. 7. She then developed severe pancytopenia with grade 4 neutropenia, severe cold autoimmune hemolytic anemia, and slightly worsening thrombocytopenia from her baseline. She also developed profound high volume diarrhea. The diarrhea initially improved on steroid therapy, but then worsened again. A specific cause was not determined. 8. She was given replacement IVIG for hypogammaglobulinemia. It was last given on 01/21/2016. 9. In January 2016 she was diagnosed with deep vein thrombosis of the both legs, more extensive on the right. She restarted anticoagulation with apixaban. Repeat venous Doppler on 02/04/2016 showed acute extensive deep vein thrombosis of the right leg. She then continued anticoagulation with therapeutic Lovenox. As of June 2016 the dosage was reduced to 100 mg once daily due to recurrent epistaxis. 10. As of June [address] scans had shown no evidence of recurrence of the lymphoma. Plan: The pathology findings were reviewed with the patient and her , and we discussed the clinical implications. She has now been diagnosed with grade 1 infiltrating ductal carcinoma of the right breast which is ER/SC positive and HER-2/justyn negative. The Ki-67 is favorable at 4%. Staging is incomplete, but it appears likely to be a T1b primary lesion, and overall the prognostic indicators thus far are very favorable. She is scheduled to undergo reexcision lumpectomy and axillary sentinel lymph node biopsy on the of this month. If her disease is localized to the breast with negative surgical margin and with favorable prognostic indicators, she will be recommended to undergo adjuvant hormonal therapy with an aromatase inhibitor. I will recommend that she see the radiation oncologist to discuss breast radiation, but radiation may be optional in this situation. I would not consider adjuvant chemotherapy unless there is axillary lymph node involvement, in which case Oncotype DX will be requested for additional prognostic information. Signed By: Wade Pablo M.D. <<Signature on File>>
== END 2020-02-13 13:33 | disposition home or self-care (01) ==
LOC: ONCMED 13:34
PROVIDERS: PCP Family Medicine; Visit Provider Internal Medicine Medical Oncology
DX: C50.411 Malignant neoplasm of upper-outer quadrant of right female breast (principal); C83.38 Diffuse large B-cell lymphoma, lymph nodes of multiple sites; Z17.0 Estrogen receptor positive status [ER+]; D80.1 Nonfamilial hypogammaglobulinemia; Z20.828 Contact with and (suspected) exposure to other viral communicable diseases; Z86.718 Personal history of other venous thrombosis and embolism; Z79.01 Long term (current) use of anticoagulants
CPT/HCPCS: 87635; 99215

== ENCOUNTER 2020-02-19 07:56 | Day surgery (SDC) | payer MEDICARE, OTHER, SELFPAY ==
[2020-02-18 13:37] VITALS: BMI 38.7
--- NOTE | 2020-02-19 08:27 | NM_ITS ---
WS: [id number] NUCLEAR MEDICINE SENTINEL LYMPH NODE IMAGING HISTORY: RIGHT breast neoplasm. COMPARISON: 12/24/2019. TECHNIQUE: The patient was injected with 1.1 mCi of Technetium 99 ultra filtered sulfur colloid. Inje ction is intradermal in a periareolar location. Four aliquots are used. Uncomplicated injections. NM/NM sentinel node inject [id number] IMPRESSION: Uncomplicated RIGHT breast sentinel lymph node injection.
--- NOTE | 2020-02-19 09:02 | W.PM.OPSUD ---
Surgery/Procedure H&P Update DATE OF PROCEDURE: February 19, 2020 DATE H&P PERFORMED: 02/12/20 H&P UPDATE INFORMATION: I have reviewed H&P completed within last 30 days, I have examined patient prior to procedure and No changes to prior documentation PREOP DIAGNOSIS: Right breast cancer PLANNED PROCEDURE: Operation Date: 02/19/20 11:25 Proposed Procedures p [id number] re-excision of margin right breast K57.92 K50.10(Right) - Renny Berry MD s Sentinal Lymph Node Biopsy(Right) - Renny Berry MD
[2020-02-19 09:48] VITALS: BP 133/100; PULSE 94; RESP 16; TEMP 36.6; O2SAT 95
[2020-02-19] MEDS: sodium chloride 0.9% 1,000 ML 30 ML IV (09:48)
[2020-02-19] MEDS: vancomycin 1,000 MG in sodium chloride 0.9% 250 ML 250 MG IV (10:25)
--- NOTE | 2020-02-19 10:32 | P.ANESASSM_ITS ---
Pre-Anesthetic Assessment Pre-Anesthetic Assessment: Height/Weight: Height 1.68 m Weight 108.862 kg Temp Pulse Resp BP Pulse Ox 98 F 94 16 133/100 95 02/19/20 09:48 02/19/20 09:48 02/19/20 09:48 02/19/20 09:48 02/19/20 09:48 Preop Diagnosis: Right breast cancer Proposed Procedure: Operation Date: 02/19/20 11:25 Proposed Procedures p [id number] re-excision of margin right breast K57.92 K50.10(Right) - Renny Berry MD s Sentinal Lymph Node Biopsy(Right) - Renny Berry MD Familial anesthetic complications: None Was Beta Jose taken within 24 hours: Yes Last intake: Intake Last Liquid Date 02/18/20 Last Liquid Time 19:30 Last Solid Date 02/18/20 Last Solid Time 19:30 Social: Social History: No alcohol and No tobacco Exam: Pre-Anes Outpt Exam: alert, oriented x 3, clear to auscultation bilaterally and regular rate & rhythm Airway: Cervical ROM: WNL MP: 3 Dentition: False CV/HEM: Comments: minimal ischemia on 2019 stress test Metabolic: Metabolic: Morbid obesity and Thyroid Comments: b cell lymphoma Anesthetic Plan: ASA status: 3 Anesthesia: MAC Risk of > 500 ml blood loss (7ml/kg in children): No Meds/Allergies Current Medications: Current Medications Generic Name Dose Route Start Last Admin Trade Name Freq PRN Reason Stop Dose Admin Sodium Chloride 1,000 mls @ 30 ml s/hr 02/19/20 08:15 02/19/20 09:48 Sodium Chloride 0.9% IV 02/20/20 08:14 30 mls/hr .Q24H MONA Administration PFSH Anesthesia PFSH: Medical History Breast cancer, right Chronic cystitis Diverticulitis GERD (gastroesophageal reflux disease) History of hypothyroidism Hx of deep venous thrombosis left leg Hx of vaginal bleeding Patient presents again with complaint of bleeding which she believes came from the vaginal area. This occurred last night. On exam today no actual bleeding seen anywhere. Stitch from her vault suspension was again noted today on exam. No granulation tissue was noted on exam. However, due to this intermittent reporting of bleeding, I went ahead and removed the stitch. On removal, the stitch appeared to not be attached to anything other than the vaginal wall. Patient still had a urethral caruncle noted with a small spot adjacent to it which is suspicious for possible bleeding from that area. With her being on the Xarelto, she may have bled from either the caruncle or from the stitch in the vagina. Questions were answered. Follow-up as needed. Hypertension IBS (irritable bowel syndrome) Unspecified B-cell lymphoma, lymph nodes of head, face, and neck (~2016) in remission-- under care of Samy Urethral caruncle Surgical History H/O colonoscopy 2013 H/O esophagogastroduodenoscopy 2018 H/O excision of mass H/O ovarian cystectomy (~1996) Left-- Laparotomy History of bunionectomy (~2001) left History of laparotomy (~1996) left ovarian cystectomy History of surgery on right wrist (~12/2010) History of tonsillectomy and adenoidectomy (~1951) Hx of breast biopsy (~1993) 1993-- 1 cyst removed from left breast and 2 cysts removed from right breast. All pathologies were benign. Hx of cholecystectomy (~02/2005) Laparoscopic. Performed by Dr. Blanton at [facility] in [place], [place]. Hx of hysterectomy (~04/08/14) with vaginal repair------- TVH, LSO, Uterosacral ligament suspension, Anterior vaginal repair, Perineorrhaphy, Single incision suburethral sling, Cystoscopy, Lysis of bowel adhesions. 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 Performed by Dr. Remi Musa at [facility] in [place], [place]. Surgical findings: Third degree cystocele, second to third degree uterine prolapse, adhesions of the sigmoid to the left fundal portion of the uterus and to the left ovary, left ovarian cyst present. S/P lumpectomy, right breast (01/27/20) Family History Grandfather Diabetes Maternal Mother Breast cancer dx at age 45 Denies family history of Colon cancer Ovarian cancer Heart disease Hypercholesteremia Anesthesia complication Bleeding disorder Hypertension Uterine cancer Thyroid disease Stroke Social History Smoking and tobacco status: never smoked Alcohol intake: never Household members: spouse Marital status: Current occupational status: employed History of recent travel: No Additional social history: - Tobacco use: Never Alcohol use: Occasional Drug use: Never Data Anesthesia Cardiac Studies: No Data to Display
[2020-02-19] MEDS: lidocaine 1% INJ 20 mL SUBCUT (12:08)
[2020-02-19] MEDS: isosulfan blue 10 mg/mL SDV 5mL SUBCUT (12:09)
[2020-02-19 13:51] VITALS: BP 151/108; PULSE 81; RESP 16; TEMP 36.6; O2SAT 92
--- NOTE | 2020-02-19 14:04 | PM.OP ---
Operative Report Date of procedure: February 19, 2020 Pre-op Diagnosis: Right breast cancer with positive anterior margin Post-op diagnosis: same Procedure Done: Right axillary sentinel lymph node biopsy Injection of 1% Lymphazurin Reexcision anterior positive margin right breast lumpectomy site Condition: stable Disposition: same day Procedure: The patient was taken to operating room and intubated under general anesthesia after IV antibiotics had been administered. Using 15 blade the existing areolar incision was opened up, subcutaneous tissue was divided and the lumpectomy cavity reopened and a shave margin was obtained from the anterior aspect of the lumpectomy cavity. The outer edge was inked and sent to pathology. The wound was irrigated saline, hemostasis ensured and subcutaneous was approximated using interrupted 3-0 Vicryl suture and skin was closed using running subcuticular 4-0 Monocryl suture and surgical glue. There is a small skin opening made at 9 o'clock position 3 cm from the areola while dissecting anteriorly which was closed with 4-0 Monocryl and surgical glue. A technetium sulfur colloid had been injected previously by the radiologist in the periareolar area. 3 mL of 1% Lymphazurin was injected in the subareolar location. The breast was massaged for 5 minutes and a 2 cm incision was made in the left axilla at the edge of the hairline. The subcutaneous tissue and clavipectoral fascia was divided with electrocautery and gentle dissection revealed lymphatics with stained lymph nodes. Using electrocautery the lymph nodes were dissected free. Examination of the axilla did not reveal any other active lymph nodes. The clavipectoral and subcutaneous tissue was approximated using running 3-0 Vicryl suture and skin was closed using running subcuticular 4-0 Monocryl suture and Dermabond.
[2020-02-19 14:05] VITALS: BP 165/102; PULSE 78; RESP 18; O2SAT 93
--- NOTE | 2020-02-19 14:10 | ANE.PACU2 ---
Inpatient post-anesthesia follow up: Airway intact: Yes Vital signs: Temperature 97.8 F Pulse Rate 79 Respiratory Rate 18 Blood Pressure 151/93 Pulse Oximetry 94 Oxygen Delivery Me thod Room Air Oxygen Flow Rate Fraction of Inspir ed Oxygen Hydration adequate: Yes Nausea and vomiting: No Pain level: 2 Mental status: Baseline
[2020-02-19 14:25] VITALS: BP 151/93; PULSE 79; RESP 18; O2SAT 94
== END 2020-02-19 14:25 | disposition home or self-care (01) ==
PROVIDERS: PCP Family Medicine; Visit Provider Surgery
PROC: (CPT 19301; principal; 2020-02-19 11:25)
PROC: (CPT 19301; 2020-02-19 11:25)
DX: C50.911 Malignant neoplasm of unspecified site of right female breast (principal); E03.9 Hypothyroidism, unspecified; Z86.718 Personal history of other venous thrombosis and embolism; E66.01 Morbid (severe) obesity due to excess calories; Z68.38 Body mass index [BMI] 38.0-38.9, adult
CPT/HCPCS: 19301; 38525; 12345; 38792; 88305; 96365; A9541; J2250; J2704; J3010; J3370; J3490; J7030; J7050; Q9968

== ENCOUNTER 2020-03-04 06:28 | Outpatient (CLI) | payer MEDICARE, OTHER, SELFPAY ==
--- NOTE | 2020-03-04 12:07 | N.ONRAD NP_ITS ---
New Patient Consultation Patient Name: Lexy Chawla Date of : 1945 Date of Service: 03/04/2020 Attending Physician: Ruddy Gimenez M.D. Lexy Chawla was seen in consultation this afternoon for evaluation regarding potential adjuvant breast radiotherapy for the management of her recently diagnosed early stage breast cancer. The patient presented for routine screening mammography performed on November 22, 2019 that identified an asymmetry within the upper outer quadrant of the right breast measuring 12 mm. Diagnostic mammograms obtained on 2019 revealed the spiculated nodule within the right breast measuring 9 mm. Ultrasonography demonstrated at the 10 o'clock position, 3 cm from the nipple 7 mm x 7 mm x 6 mm hypoechoic lesion with an enlarged left axillary lymph node measuring 2 cm x 1.6 cm x 1.6 cm. An ultrasound-guided breast biopsy completed on January 02, 2020 identified benign ductal epithelium in a background of stromal sclerosis. A right partial mastectomy and excision of a left axillary mass was performed by Jamal Lawson M.D. on January 27, 2020. A 7 mm grade I invasive ductal carcinoma was diagnosed. Ductal carcinoma in situ was not identified. The anterior surgical margin was focally positive. Immunohistochemical staining was positive for estrogen receptor (99%) and progesterone receptor (99%) while negative for HER-2. The Ki-67 was 4%. Left axillary mass was an epithelial inclusion cyst. A re-excision and right sentinel lymph node biopsy completed on February 19, 2020 harvested five lymph nodes negative for malignancy and the re-assessed surgical margin was negative. The patient presents for discussion concerning adjuvant breast radiotherapy. The patient's past medical history is significant for chronic cystitis, diffuse large B-cell lymphoma, diverticulitis, DVT, GERD, hypothyroidism, hypertension, irritable bowel syndrome, peripheral neuropathy, a urethral caruncle, and vitamin D deficiency. Past surgical history includes bone marrow biopsy, bunionectomy (left), cholecystectomy, colonoscopy, EGD, ovarian cystectomy, partial mastectomy (right), tonsillectomy and adenoidectomy, total abdominal hysterectomy, venous access procedure, and wrist surgery (right). I have reviewed the patient's medication profile which is available in the electronic medical record. She described drug allergies to clindamycin (angioedema) and penicillin (rash). The patient's family history was remarkable for breast cancer (mother). The patient was accompanied to this consultation by her . She reported denied alcohol intake and disavowed a tobacco habit. On review of systems, she did not report any constitutional complaints including fevers of unknown origin or unintentional weight loss. There were no head neck complaints including diplopia, tinnitus, epistaxis, or dysphagia. She did not report breast complaints such as masses or nipple discharge. She disavowed any enlarged lymph nodes of the neck, armpit, or groin. She denied any cardiopulmonary symptoms such as angina, cough, or palpitations. On gastrointestinal review, she disclaimed nausea or diarrhea. There were no genitourinary complaints such as dysuria or hematuria. She did not report any musculoskeletal complaints including bone pain or muscle weakness nor skin complaints like rash. There were no neurological symptoms such as headaches, paresthesias, or seizures. On physical examination, the patient has an ECOG performance status of 0. She was 5 ft 6 in tall and weighed 248 lbs. The temperature was 96.8???F. The blood pressure was 118/82 mmHg. The pulse was 93 bpm and the respiratory rate of was 18. The head was normocephalic and atraumatic. Ophthalmoscopy identified bilateral red reflexes but fundi were not well visualized. Otoscopy revealed light reflexes upon tympanic membranes. Rhinoscopy exhibited non-inflamed turbinates. The oral cavity had moist mucous membranes and no oropharyngeal exudate was present. There was no cervical adenopathy or thyromegaly. No dominant breast masses were palpated. A scar was present in the upper-quadrant of the right breast. Normal fremitus was noted with resonance to percussion elicited. Bronchovesicular breath sounds were auscultated in the posterior lung denney. Cardiac sounds were regular in rate and rhythm. No auscultated gallops or murmurs present. No JVD noted. The abdomen had active bowel sounds. No tenderness to palpation. No evidence of organomegaly. No muscle weakness upon testing. No tenderness to deep palpation along the axial skeleton. Cranial nerves II through XII were intact. No sensory deficits. Slight hyperreflexia present. Gait was normal. In summary, The patient presented for routine screening mammography performed on November 22, 2019 that identified an asymmetry within the upper outer quadrant of the right breast measuring 12 mm. Diagnostic mammograms obtained on December 24, 2019 revealed the spiculated nodule within the right breast measuring 9 mm. Ultrasonography demonstrated at the 10 o'clock position, 3 cm from the nipple 7 mm x 7 mm x 6 mm hypoechoic lesion with an enlarged left axillary lymph node measuring 2 cm x 1.6 cm x 1.6 cm. An ultrasound-guided breast biopsy completed on January 02, 2020 identified benign ductal epithelium in a background of stromal sclerosis. A right partial mastectomy and excision of a left axillary mass was performed by Jmaal Lawson M.D. on January 27, 2020. A 7 mm grade I invasive ductal carcinoma was diagnosed. Ductal carcinoma in situ was not identified. The anterior surgical margin was focally positive. Immunohistochemical staining was positive for estrogen receptor (99%) and progesterone receptor (99%) while negative for HER-2. The Ki-67 was 4%. Left axillary mass was an epithelial inclusion cyst. A re-excision and right sentinel lymph node biopsy completed on February 19, 2020 harvested five lymph nodes negative for malignancy and the re-assessed surgical margin was negative. The patient presents for discussion concerning adjuvant breast radiotherapy. I reviewed with the patient her AJCC prognostic stage IA (T1bN0) breast cancer. I also discussed the National Comprehensive Cancer Network Guidelines for the omission of breast irradiation in patients 70 years of age or older with estrogen receptor positive, clinically node-negative, T1-2 tumors who will receive adjuvant endocrine therapy. I summarized the randomized trial published in [place] Journal of Medicine which established this standard. The patient would like to evaluate her treatment options prior to making a final decision. Signed by: Dr. Ruddy Gimenez 03/17/2020 8:29:37 AM
== END 2020-03-04 06:29 | disposition home or self-care (01) ==
LOC: ONCMED 06:30
PROVIDERS: PCP Family Medicine; Visit Provider Radiology Radiation Oncology
DX: C50.411 Malignant neoplasm of upper-outer quadrant of right female breast (principal); Z17.0 Estrogen receptor positive status [ER+]; C83.30 Diffuse large B-cell lymphoma, unspecified site; N30.20 Other chronic cystitis without hematuria; K21.9 Gastro-esophageal reflux disease without esophagitis; E03.9 Hypothyroidism, unspecified; I10 Essential (primary) hypertension; G62.9 Polyneuropathy, unspecified; E55.9 Vitamin D deficiency, unspecified; Z90.11 Acquired absence of right breast and nipple; Z80.3 Family history of malignant neoplasm of breast
CPT/HCPCS: 99215

== ENCOUNTER 2020-03-12 09:56 | Outpatient (CLI) | payer MEDICARE, OTHER, SELFPAY ==
--- NOTE | 2020-03-15 12:39 | ONC FU_ITS ---
Dr. Pablo Patient Follow-Up Note Patient: Lexy Chawla Unit #: [id number]: 1945 Dicatated By: Wade Pablo M.D.Date of Visit:Mar 12, 2020 Onc Med Follow-up/Prog Note Chief Complaint: Lymphoma/breast cancer. 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 She also has grade 1 infiltrating ductal carcinoma of the right breast, stage IA (T1b, N0, M0), ER/TN positive and HER-2/justyn negative. Her lymphoma was diagnosed in 2014, when she presented with an enlarging right supraclavicular mass. She has been in remission following completion of chemotherapy in July 2015. On 11/22/2019 her routine screening mammogram was reported to be BI-RADS 0, incomplete. Findings included an irregular asymmetry in the upper outer quadrant of the right breast measuring 12 mm. Additional mammographic views and right breast ultrasound on 12/24/2019 was BI-RADS 4, suspicious. Mammogram reported a persistent spiculated nodule measuring 6 mm at the 10 o'clock position of the right breast. Ultrasound showed an area of shadowing and decreased echogenicity measuring 7 x 7 x 6 mm. Biopsy was recommended. Ultrasound of the left axilla at that time showed a complex lobulated mass measuring 2.0 x 1.6 x 1.6 cm, appearance of which was felt to be consistent with sebaceous cyst. Ultrasound-guided biopsy of the right breast mass on 01/02/2020 showed benign ductal epithelium in a background of stromal sclerosis and dense fibrotic tissue. On 01/27/2020 she underwent excisional biopsy of the breast mass under wire localization. The procedure also included excision of the left axillary mass. Pathology on the excisional biopsy showed grade 1 invasive ductal carcinoma measuring 0.7 cm in greatest dimension. The anterior margin was noted to be focally positive. The breast prognostic profile showed ER positive at 99% and TN positive at 99%. The tumor was negative for overexpression of HER-2/justyn, 0+ by IHC and amplification ratio by FISH of 0.9 with 1.7 HER-2 copies/cell. The Ki-67 was favorable at 4%. Pathology on the left axillary mass showed epithelial inclusion cyst. On 02/19/2020 she underwent right breast reexcision lumpectomy and right axillary sentinel lymph node biopsy. Pathology showed no residual malignancy in the lumpectomy specimen. There was no involvement in 5 axillary sentinel lymph nodes. She is seen now in regard to further management of the breast cancer. She had been seen for radiation oncology consultation by Dr. Gimenez on 03/04/2020, and his note has been reviewed. Her lymphoma had been diagnosed by ultrasound guided biopsy of the right supraclavicular mass on 02/02/2015. Pathology revealed germinal cell phenotype diffuse large B-cell lymphoma, with immunohistochemistry positive for CD20, CD10, mom 1, BCL 2 and BCL 6. Ki-67 was elevated at 80-90%. Non-Hodgkin???s lymphoma panel by FISH was positive for BCL 6 rearrangement, MYC rearrangement, IGH/MYC translocation, and IGH rearrangement. Double hit lymphoma was suspected. She was first seen by Dr. Rausch on 02/17/2015. MYC rearrangement was confirmed by IHC. Bone marrow biopsy was negative for involvement. Staging PET/CT on 02/21/2015 showed single right supraclavicular lymph node with SUV of 25.7 and spleen with SUV was 7.5. Direct visualization of nasopharyngeal tissue by ENT surgeon was unrevealing, thus clinical stage IIIA disease. She received 2 cycles of R-CEOP regimen on 03/11/14 - 04/01/15. She tolerated it remarkably well, although she had some mild thrombocytopenia and mild mucositis. Her further cardiac workup showed a preserved ejection fraction by Sestamibi stress test. As such, she was recommended to receive dose adjusted R- EPOCH therapy under the care of Dr. Brown at [facility]. Cycle 2 of R- EPOCH with escalated doses was delivered on 05/18/2015. She developed an acute right arm superficial thrombophlebitis and severe pancytopenia. Further evaluation showed an acute left lower extremity DVT and small apical PE. In light of severe chemotherapy-induced pancytopenia, anticoagulation was not possible. She was admitted to the hospital and underwent IVC filter placement. Eliquis was eventually began in May 2015. During that time she was able to continue additional chemotherapy with 4 cycles of R-EPOCH, completed in July 2015. Her treatment was complicated by Campylobacter colitis and by cold autoimmune hemolytic anemia. She eventually recovered with steroid therapy and replacement IVIG for hypogammaglobulinemia. During follow-up she had ongoing problems with chronic diarrhea and with recurrent episodes of deep vein thrombosis, but she eventually did show recovery on anticoagulation with apixaban and symptomatic management for the diarrhea. During follow-up there has been evidence of recurrence of the lymphoma. Medications: Cymbalta 1.5 Capsule (of 60 mg) Capsule Delayed Release Particles Oral daily, Levothyroxine Sodium 1 Tablet (of 25 mcg) Oral daily, Metoprolol Tartrate 1 Tablet (of 25 mg) Oral b.i.d., Multivitamin Adult 1 Tablet Oral daily, Pantoprazole Sodium 1 Tablet (of 40 mg) Tablet, enteric coated Oral daily, Pregabalin 1 Capsule (of 150 mg) Oral b.i.d., Ventolin HFA 1 puff(s) (of 108 (90 base) mcg/act) Aerosol, solution Inhalation q 4 hours, Voltaren Gel (jelly) Transdermal PRN, Xarelto 1 (20 mg) Tablet Oral daily Allergies: Clindamycin HCl and Penicillin V Potassium. Vital Signs: Performed on Mar 12, 2020 10:15 Height - 66.00 in Weight - 247.8 lbs (LOW) BSA - 2.19 sq.m BMI - 40.00 (HIGH) Temperature - 97.2 F (LOW) Pulse - 107 /min (HIGH) Respiration - 19 /min BP - 147/95 mm(hg) (HIGH) O2 Sat - 93 % (LOW) Pain - 0 Historic Problem List: 1. Grade 1 infiltrating ductal carcinoma of the right breast, stage IA (pT1b, pN0, M0), ER/TN positive and HER-2/justyn negative. 2. 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 The disease involved right supraclavicular lymph node and spleen. Her lymphoma has been in remission following completion of 2 cycles of R-CEOP chemotherapy followed by 4 cycles of dose adjusted R-EPOCH, completed in July 2015. 3. Her treatment was complicated by Campylobacter colitis, by cold autoimmune hemolytic anemia, and by recurrent episodes of deep vein thrombosis. She remains anticoagulated with rivaroxaban. 4. GERD. 5. Peripheral neuropathy. 6. History of cystitis. 7. Vitamin D deficiency. 8. Chronic anxiety. Problems Addressed with this Encounter and Plan: 1. Grade 1 infiltrating ductal carcinoma of the right breast, stage IA (pT1b, pN0, M0), ER/TN positive and HER-2/justyn negative. She has undergone excisional biopsy followed by reexcision lumpectomy and axillary sentinel lymph node biopsy. She has had radiation oncology consultation with Dr. Gimenez, and I have reviewed his note. I have also discussed her management with him. I have reviewed the pathology results and staging with the patient and her . She has early stage disease with favorable prognostic indicators. With hormone receptor positive disease, she will be advised to have adjuvant hormonal therapy with an aromatase inhibitor. The question is whether she should also undergo radiation, as there are data to suggest that patients in this category who are over age 70 may have favorable outcomes without radiation. My concern is that with her history of recurrent deep vein thrombosis she will not be eligible to have treatment with tamoxifen, and if she is unable to tolerate an aromatase inhibitor, she will not have any other option for adjuvant hormonal therapy. Under the circumstances, I would be more inclined to favor radiation, and that is also the pain of both the patient and her . As noted, I have discussed this with Dr. Gimenez and she will now proceed with radiation to the right breast. I will see her again following completion of radiation to initiate her adjuvant hormonal therapy. 2. 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 The disease involved right supraclavicular lymph node and spleen. Her lymphoma has been in remission following completion of 2 cycles of R-CEOP chemotherapy followed by 4 cycles of dose adjusted R-EPOCH, completed in July 2015. In the absence of any evidence of recurrence of the lymphoma, she continues on observation/expectant management. 3. Recurrent episodes of deep vein thrombosis. She has been stable on anticoagulation with rivaroxaban with no evidence for any new thrombosis. Signed By: Wade Pablo M.D. <<Signature on File>>
== END 2020-03-12 09:57 | disposition home or self-care (01) ==
LOC: ONCMED 09:59
PROVIDERS: PCP Family Medicine; Visit Provider Internal Medicine Medical Oncology
DX: C50.411 Malignant neoplasm of upper-outer quadrant of right female breast (principal); Z17.0 Estrogen receptor positive status [ER+]; Z85.72 Personal history of non-Hodgkin lymphomas; Z86.718 Personal history of other venous thrombosis and embolism; Z79.01 Long term (current) use of anticoagulants
CPT/HCPCS: 99215

== ENCOUNTER 2020-04-03 05:35 | Outpatient (RCR) | payer MEDICARE, OTHER, SELFPAY ==
--- NOTE | 2020-03-17 | CT_ITS ---
Radiation Therapy Planning CT images; total exam DLP: 1085.79 mGy-cm MTDD
--- NOTE | 2020-03-23 11:47 | ONCRAD TMN_ITS ---
Radiation Oncology Treatment Management Note Patient Name: Lexy Chawla Date of : 1945 Date of Service: 03/23/2020 Attending Physician: Ruddy Gimenez M.D. Lexy Chawla is a 74 year-old white female diagnosed with a pathological stage IA (T1bN0) grade I invasive ductal carcinoma of the upper-outer quadrant of the right breast. Immunohistochemical stainings were positive for estrogen receptor and progesterone receptor while negative for HER2. She has received 2.7 Gy of a prescribed 40 Gy delivered with a 3D conformal radiotherapy plan utilizing opposed tangential portal denney with a [id number] treatment technique. Upon review of systems, she denied any breast complaints to radiotherapy. On physical examination, the patient weighed 250 lbs. Her temperature was 97.5 ???F with a blood pressure of 138/90 mmHg. Her pulse was 84 bpm and her respiratory rate was 18. There was no erythema within the treatment denney of the right breast. Continue hypofractionated right breast radiotherapy as prescribed. Signed by: Dr. Ruddy Gimenez 03/23/2020 11:45:44 AM
--- NOTE | 2020-03-30 11:47 | ONCRAD TMN_ITS ---
Radiation Oncology Treatment Management Note Patient Name: Lexy Chawla Date of : 1945 Date of Service: 03/30/2020 Attending Physician: Ruddy Gimenez M.D. Lexy Chawla is a 74 year-old white female diagnosed with a pathological stage IA (T1bN0) grade I invasive ductal carcinoma of the upper-outer quadrant of the right breast. Immunohistochemical stainings were positive for estrogen receptor and progesterone receptor while negative for HER2. She has received 16 Gy of a prescribed 40 Gy delivered with a 3D conformal radiotherapy plan utilizing opposed tangential portal denney with a [id number] treatment technique. Upon review of systems, she denied any breast complaints to radiotherapy. On physical examination, the patient weighed 250 lbs. Her temperature was 98.3 ???F with a blood pressure of 132/85 mmHg. Her pulse was 85 bpm and her respiratory rate was 20. There was no erythema within the treatment denney of the right breast. Continue hypofractionated right breast radiotherapy as planned. Signed by: Dr. Ruddy Gimenez 03/30/2020 11:45:22 AM
== END 2020-04-05 23:59 | disposition home or self-care (01) ==
LOC: ONCMED 05:35
PROVIDERS: PCP Family Medicine; Visit Provider Radiology Radiation Oncology
DX: Z51.0 Encounter for antineoplastic radiation therapy (principal); C50.411 Malignant neoplasm of upper-outer quadrant of right female breast; Z17.0 Estrogen receptor positive status [ER+]; I82.411 Acute embolism and thrombosis of right femoral vein; D80.1 Nonfamilial hypogammaglobulinemia; C83.31 Diffuse large B-cell lymphoma, lymph nodes of head, face, and neck
CPT/HCPCS: 77280; 77295; 77300; 77332; 77334; 77336; 77387; 77412

== ENCOUNTER 2020-04-16 05:37 | Outpatient (RCR) | payer MEDICARE, OTHER, SELFPAY ==
--- NOTE | 2020-04-06 11:31 | ONCRAD TMN_ITS ---
Radiation Oncology Treatment Management Note Patient Name: Lexy Chawla Date of : 1945 Date of Service: 04/06/2020 Attending Physician: Ruddy Gimenez M.D. Lexy Chawla is a 74 year-old white female diagnosed with a pathological stage IA (T1bN0) grade I invasive ductal carcinoma of the upper-outer quadrant of the right breast. Immunohistochemical stainings were positive for estrogen receptor and progesterone receptor while negative for HER2. She has received 29.3 Gy of a prescribed 40 Gy delivered with a 3D conformal radiotherapy plan utilizing opposed tangential portal denney with a [id number] treatment technique. Upon review of systems, she denied any breast complaints to radiotherapy. On physical examination, the patient weighed 251 lbs. Her temperature was 97.8 ???F with a blood pressure of 140/90 mmHg. Her pulse was 88 bpm and her respiratory rate was 18. There was no erythema within the treatment denney of the right breast. Continue hypofractionated right breast radiotherapy as prscribed. Signed by: Dr. Ruddy Gimenez 04/06/2020 11:30:06 AM
[2020-04-16 13:10] LABS: Basophils % 0.3 %; Eosinophils # 0.4 10^3/uL (0.0-0.8); Eosinophils % 11.4 %; Hematocrit 40.5 % (37.0-47.0); Hemoglobin 13.3 g/dL (11.5-15.3); Lymphocytes # 0.9 10^3/uL (0.8-4.8); Lymphocytes % 23.4 %; Mean Corpuscular HGB Conc 32.8 g/dL (30.0-36.0); Mean Corpuscular Hemoglobin 30.8 pg (28.0-34.0); Mean Corpuscular Volume 93.8 fL (81-99); Mean Platelet Volume 9.4 fL (7.4-10.4); Monocytes # 0.5 10^3/uL (0.2-0.9); Monocytes % 12.7 %; Neutrophils % 51.9 %; Nucleated Red Blood Cells % 0 %; Platelet Count 119 10^3/cmm (130-400); Red Blood Count 4.32 10^6/uL (4.1-5.3); Red Cell Distribution Width 13.6 % (12.1-15.1); White Blood Count 3.9 10^3/uL (4.0-10.0)
[2020-04-16 13:46] LABS: Alanine Aminotransferase 17 U/L (0-33); Albumin Level 4.1 g/dL (3.5-5.2); Alkaline Phosphatase 79 IU/L (35-105); Anion Gap 13.3 (5-19); Aspartate Amino Transferase 22 U/L (0-32); Blood Urea Nitrogen 21 mg/dL (8-23); Calcium 8.9 mg/dL (8.5-10.5); Carbon Dioxide 28 mmol/L (22-29); Chloride 102 mmol/L (98-107); Globulin 2.3 g/dL (1.3-4.6); Glucose 105 mg/dL (65-115); Lactate Dehydrogenase 227 U/L (135-214); Osmolality Calculated 291 mOsm/kg (285-295); Potassium 4.3 mmol/L (3.5-5.1); Sodium 139 mmol/L (136-145); Thyroid Stimulating Hormone 3.14 uIU/mL (0.27-4.20); Total Bilirubin 0.4 mg/dL (0.15-1.2); Total Protein 6.4 g/dL (6.6-8.7)
--- NOTE | 2020-04-17 08:45 | ONC FU_ITS ---
Dr. Pablo Patient Follow-Up Note Patient: Lexy Chawla Unit #: [id number]: 1945 Dicatated By: Wade Pablo M.D.Date of Visit:Apr 16, 2020 Onc Med Follow-up/Prog Note Chief Complaint: Lymphoma/breast cancer. 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 She also has grade 1 infiltrating ductal carcinoma of the right breast, stage IA (T1b, N0, M0), ER/HI positive and HER-2/justyn negative. Her lymphoma was diagnosed in 2014, when she presented with an enlarging right supraclavicular mass. She has been in remission following completion of chemotherapy in July 2015. On 11/22/2019 her routine screening mammogram was reported to be BI-RADS 0, incomplete. Findings included an irregular asymmetry in the upper outer quadrant of the right breast measuring 12 mm. Additional mammographic views and right breast ultrasound on 12/24/2019 was BI-RADS 4, suspicious. Mammogram reported a persistent spiculated nodule measuring 6 mm at the 10 o'clock position of the right breast. Ultrasound showed an area of shadowing and decreased echogenicity measuring 7 x 7 x 6 mm. Biopsy was recommended. Ultrasound of the left axilla at that time showed a complex lobulated mass measuring 2.0 x 1.6 x 1.6 cm, appearance of which was felt to be consistent with sebaceous cyst. Ultrasound-guided biopsy of the right breast mass on 01/02/2020 showed benign ductal epithelium in a background of stromal sclerosis and dense fibrotic tissue. On 01/27/2020 she underwent excisional biopsy of the breast mass under wire localization. The procedure also included excision of the left axillary mass. Pathology on the excisional biopsy showed grade 1 invasive ductal carcinoma measuring 0.7 cm in greatest dimension. The anterior margin was noted to be focally positive. The breast prognostic profile showed ER positive at 99% and HI positive at 99%. The tumor was negative for overexpression of HER-2/justyn, 0+ by IHC and amplification ratio by FISH of 0.9 with 1.7 HER-2 copies/cell. The Ki-67 was favorable at 4%. Pathology on the left axillary mass showed epithelial inclusion cyst. On 02/19/2020 she underwent right breast reexcision lumpectomy and right axillary sentinel lymph node biopsy. Pathology showed no residual malignancy in the lumpectomy specimen. There was no involvement in 5 axillary sentinel lymph nodes. I had seen her on 03/12/2020 in regard to the breast cancer. She had been seen for radiation oncology consultation by Dr. Gimenez on 03/04/2020. In the setting of T1b, N0 ER/HI positive disease, I had recommended limiting her systemic adjuvant therapy to endocrine therapy. As such, I did not request Oncotype DX. I did have concerns that her history of thromboembolism would contraindicate use of tamoxifen, and I would not have any other option for treating her if she could not tolerate an aromatase inhibitor. With that in mind, she did opt to undergo radiation to the right breast. She completed treatment on 04/10/2020 to a total dose of 4000 cGy, administered in 18 fractions. Her other medical illnesses include GERD, peripheral neuropathy, vitamin D deficiency, and chronic anxiety. She also has a history of cystitis. She is a non-smoker. She is seen now to discuss further management of the breast cancer. She has having redness and itching in the right breast area following the radiation. She has otherwise tolerated the treatment well and she is otherwise stable symptomatically. Medications: Cymbalta 1.5 Capsule (of 60 mg) Capsule Delayed Release Particles Oral daily, Levothyroxine Sodium 1 Tablet (of 25 mcg) Oral daily, Metoprolol Tartrate 1 Tablet (of 25 mg) Oral b.i.d., Multivitamin Adult 1 Tablet Oral daily, Pantoprazole Sodium 1 Tablet (of 40 mg) Tablet, enteric coated Oral daily, Pregabalin 1 Capsule (of 150 mg) Oral b.i.d., Ventolin HFA 1 puff(s) (of 108 (90 base) mcg/act) Aerosol, solution Inhalation q 4 hours, Voltaren Gel (jelly) Transdermal PRN, Xarelto 1 (20 mg) Tablet Oral daily Allergies: Clindamycin HCl and Penicillin V Potassium. Vital Signs: Performed on Apr 16, 2020 14:07 Height - 66.00 in Weight - 249 lbs (LOW) BSA - 2.20 sq.m BMI - 40.19 (HIGH) Temperature - 97.4 F (LOW) Pulse - 80 /min Respiration - 17 /min BP - 141/81 mm(hg) (HIGH) O2 Sat - 96 % Pain - 0 Lab/Imaging: Test performed on Apr 16, 2020 13:00 LDH (Total) 227 U/L Sodium 139 mmol/L TSH 3.14 uIU/mL Potassium 4.3 mmol/L Chloride 102 mmol/L CO2 28 mmol/L Anion Gap 13.3 BUN 21 mg/dL Creatinine 1.1 mg/dL Cr Clearance (Est) 80.00 mL/min Glucose 105 mg/dL Osmolality - Calculated 291 mOsm/kg Calcium 8.9 mg/dL Protein, Total 6.4 g/dL Albumin 4.1 g/dL Globulin 2.3 g/dL Bilirubin, Total 0.4 mg/dL ALT (SGPT) 17 U/L AST (SGOT) 22 U/L Alkaline Phosphatase 79 IU/L WBC 3.9 10 3/uL RBC 4.32 10 6/uL HGB 13.3 g/dL HCT 40.5 % MCV 93.8 fL MCH 30.8 pg MCHC 32.8 g/dL RDW 13.6 % Platelet Count 119 10 3/cmm MPV 9.4 fL Neutrophils 2.00 10 3/uL Lymphocytes 0.9 10 3/uL Monocytes 0.5 10 3/uL Eosinophils 0.4 10 3/uL Basophils 0.0 10 3/uL Neutrophil % 51.9 % Lymphocyte % 23.4 % Monocyte % 12.7 % Eosinophil % 11.4 % Basophils % 0.3 % NRBC % 0 % Test performed on Oct 29, 2019 14:14 T4, Free 1.42 ng/dL Vitamin D (25-Hydroxy), Total 33 ng/mL Problem List: 1. Grade 1 infiltrating ductal carcinoma of the right breast, stage IA (pT1b, pN0, M0), ER/HI positive and HER-2/justyn negative. 2. 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 The disease involved right supraclavicular lymph node and spleen. Her lymphoma has been in remission following completion of 2 cycles of R-CEOP chemotherapy followed by 4 cycles of dose adjusted R-EPOCH, completed in July 2015. 3. Her treatment was complicated by Campylobacter colitis, by cold autoimmune hemolytic anemia, and by recurrent episodes of deep vein thrombosis. She remains anticoagulated with rivaroxaban. 4. GERD. 5. Peripheral neuropathy. 6. History of cystitis. 7. Vitamin D deficiency. 8. Chronic anxiety. Problems Addressed with this Encounter and Plan: 1. Grade 1 infiltrating ductal carcinoma of the right breast, stage IA (pT1b, pN0, M0), ER/HI positive and HER-2/justyn negative. She has underwent excisional biopsy on 01/27/2020 followed by reexcision lumpectomy and axillary sentinel lymph node biopsy on 02/19/2020. She has had given radiation to the right breast, completed on 04/10/2020 to a total dose of 4000 cGy, administered in 18 fractions. She has had some skin reaction with the radiation, as expected. She otherwise appears stable clinically. She is advised now to begin adjuvant hormonal therapy with anastrozole 1 mg daily. I reviewed anticipated side effects which may include osteoporosis and/or musculoskeletal pain, among others. She will need a baseline DEXA scan to assess for osteoporosis, and she will be given treatment for bone health as indicated. She will be scheduled for a follow-up visit in 3 months. 2. 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 The disease involved right supraclavicular lymph node and spleen. Her lymphoma has been in remission following completion of 2 cycles of R-CEOP chemotherapy followed by 4 cycles of dose adjusted R-EPOCH, completed in July 2015. In the absence of any evidence of recurrence of the lymphoma, she continues on observation/expectant management. 3. Recurrent episodes of deep vein thrombosis. She has been stable on anticoagulation with rivaroxaban with no evidence for any new thrombosis. Signed By: Wade Pablo M.D. <<Signature on File>>
== END 2020-05-03 23:59 | disposition home or self-care (01) ==
LOC: ONCMED 05:37
PROVIDERS: PCP Family Medicine; Visit Provider Internal Medicine Medical Oncology
DX: Z51.0 Encounter for antineoplastic radiation therapy (principal); C50.411 Malignant neoplasm of upper-outer quadrant of right female breast; Z17.0 Estrogen receptor positive status [ER+]; E03.9 Hypothyroidism, unspecified; L58.0 Acute radiodermatitis; Y84.2 Radiological procedure and radiotherapy as the cause of abnormal reaction of the patient, or of later complication, without mention of misadventure at the time of the procedure; Z85.72 Personal history of non-Hodgkin lymphomas; Z92.21 Personal history of antineoplastic chemotherapy; Z79.899 Other long term (current) drug therapy; Z86.718 Personal history of other venous thrombosis and embolism; Z79.01 Long term (current) use of anticoagulants; Z79.811 Long term (current) use of aromatase inhibitors
CPT/HCPCS: 36415; 77336; 77387; 77412; 80053; 83615; 84443; 85025; 99214

== ENCOUNTER 2020-05-04 16:02 | Outpatient (CLI) | payer MEDICARE, OTHER, SELFPAY ==
--- NOTE | 2020-05-04 16:08 | XR_ITS ---
WS: [id number] SCREENING DEXA SCAN Function Space CLINICAL INFORMATION: VITAMIN D DEFICIENCY, ASYMPTOMATIC MENOPAUSE COMPARISON: None. FINDINGS: The L1-L4 bone mineral density measures 1.209 g/cm2. This corresponds to a T score score of 0.2 and Z score of 0.8. Left femoral neck bone mineral density measures 1.132 g/cm2. This corresponds to a T score of 1.0 and Z score of 1.8. Right femoral neck bone mineral density measures 1.119 g/cm2. This corresponds to a T score 0.9of and Z score of 1.8. Mean femoral neck bone mineral density measures 1.125 g/cm2. This corresponds to a T score of 0.9 and Z score of 1.8. XR/XR DEXA axial skeleton* 43850 IMPRESSION: Normal bone mineralization. Patient's FRAX calculated 10 year probability for major osteoporotic fracture i s 6.2 % and osteoporotic hip fracture is 0.4%.
== END 2020-05-04 16:03 | disposition home or self-care (01) ==
LOC: RADWPI 16:04
PROVIDERS: PCP Family Medicine; Visit Provider Internal Medicine Medical Oncology
DX: E55.9 Vitamin D deficiency, unspecified (principal); Z78.0 Asymptomatic menopausal state
CPT/HCPCS: 77080

== ENCOUNTER 2020-05-15 06:06 | Outpatient (RCR) | payer MEDICARE, OTHER, SELFPAY ==
--- NOTE | 2020-05-15 10:47 | ONCRAD EPV_ITS ---
Radiation Oncology Follow-Up Note Patient Name: Lexy Chawla Date of : 1945 Date of Service: 05/15/2020 Attending Physician: Ruddy Gimenez M.D. Lexy Chawla returned to my office this morning for a routinely scheduled post radiotherapy follow-up appointment. She completed adjuvant right breast radiotherapy in April for the post-operative management of a pathological stage IA (T1bN0) grade I ductal carcinoma of the upper-outer quadrant of the right breast. Breast cancer profile was positive for estrogen receptor and progesterone receptor while negative for HER-2. Radiation therapy was administered between the dates of March 23, 2020 through April 10, 2020. A dose of 40 Gy was delivered in 15 fractions encompassing 19 elapsed days. On review of systems, she did not report any breast complaints. On physical examination, the patient weighed 251 lbs and the temperature was 97.3???F. Her blood pressure was 134/93 mmHg. The pulse was 92 bpm and the respiratory rate was 18 breaths per minute. Examination of the right breast did not reveal any significant erythema. Subtle hyperpigmentation was noted. Significant ecchymosis of right first MP joint (recent trauma). In summary, Ms. Chawla returned for a routine post radiotherapy follow-up. Recent screening DEXA scan revealed normal bone mineralization. I will order a radiograph to asses hand. She has been prescribed anastrozole by her medical oncologist and will continue follow-up as scheduled. Signed by: Dr. Ruddy Gimenez 05/15/2020 10:46:36 AM
== END 2020-06-03 23:59 | disposition home or self-care (01) ==
LOC: ONCMED 06:06
PROVIDERS: PCP Family Medicine; Visit Provider Radiology Radiation Oncology
DX: C50.411 Malignant neoplasm of upper-outer quadrant of right female breast (principal); S60.221D Contusion of right hand, subsequent encounter; X58.XXXD Exposure to other specified factors, subsequent encounter; Z17.0 Estrogen receptor positive status [ER+]; Z92.3 Personal history of irradiation
CPT/HCPCS: 99024

== ENCOUNTER 2020-05-15 11:01 | Outpatient (CLI) | payer MEDICARE, OTHER, SELFPAY ==
--- NOTE | 2020-05-15 11:10 | XR_ITS ---
WS: [id number] RIGHT HAND: 3 VIEW(S) TECHNIQUE: PA, oblique and lateral. HISTORY: TRAUMA WITH ECCHYMOSES, RIGHT HAND COMPARISON: None available. Plate and screw fixation from the distal radius to the third metacarpal. Hardware appears intact. The re is ankylosis at the wrist joint involving the carpal bones. Severe narrowing of the distal radial ulnar joint. No acute fractures identified. There is a linear line through the radial metaphysis whic h may be from old injury. XR/XR hand RT min 3V* [id number] IMPRESSION: 1. No acute fractures are identified. 2. Plate and screw fixation extending from the distal radius to the third meta carpal. Fusion of the carpal bones.
== END 2020-05-15 11:02 | disposition home or self-care (01) ==
PROVIDERS: PCP Family Medicine; Visit Provider Radiology Radiation Oncology
DX: S60.221A Contusion of right hand, initial encounter (principal); X58.XXXA Exposure to other specified factors, initial encounter
CPT/HCPCS: 73130

== ENCOUNTER 2020-07-15 13:32 | Outpatient (CLI) | payer MEDICARE, OTHER, SELFPAY ==
--- NOTE | 2020-07-15 18:40 | ONC FU_ITS ---
Dr. Pablo Patient Follow-Up Note Patient: Lexy Chawla Unit #: [id number]: 1945 Dicatated By: Wade Pablo M.D.Date of Visit:July 15, 2020 Onc Med Follow-up/Prog Note Chief Complaint: Lymphoma/breast cancer. 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 She also has grade 1 infiltrating ductal carcinoma of the right breast, stage IA (T1b, N0, M0), ER/CT positive and HER-2/justyn negative. Her lymphoma was diagnosed in 2014, when she presented with an enlarging right supraclavicular mass. She has been in remission following completion of chemotherapy in July 2015. On 11/22/2019 her routine screening mammogram was reported to be BI-RADS 0, incomplete. Findings included an irregular asymmetry in the upper outer quadrant of the right breast measuring 12 mm. Additional mammographic views and right breast ultrasound on 12/24/2019 was BI-RADS 4, suspicious. Mammogram reported a persistent spiculated nodule measuring 6 mm at the 10 o'clock position of the right breast. Ultrasound showed an area of shadowing and decreased echogenicity measuring 7 x 7 x 6 mm. Biopsy was recommended. Ultrasound of the left axilla at that time showed a complex lobulated mass measuring 2.0 x 1.6 x 1.6 cm, appearance of which was felt to be consistent with sebaceous cyst. Ultrasound-guided biopsy of the right breast mass on 01/02/2020 showed benign ductal epithelium in a background of stromal sclerosis and dense fibrotic tissue. On 01/27/2020 she underwent excisional biopsy of the breast mass under wire localization. The procedure also included excision of the left axillary mass. Pathology on the excisional biopsy showed grade 1 invasive ductal carcinoma measuring 0.7 cm in greatest dimension. The anterior margin was noted to be focally positive. The breast prognostic profile showed ER positive at 99% and CT positive at 99%. The tumor was negative for overexpression of HER-2/justyn, 0+ by IHC and amplification ratio by FISH of 0.9 with 1.7 HER-2 copies/cell. The Ki-67 was favorable at 4%. Pathology on the left axillary mass showed epithelial inclusion cyst. On 02/19/2020 she underwent right breast reexcision lumpectomy and right axillary sentinel lymph node biopsy. Pathology showed no residual malignancy in the lumpectomy specimen. There was no involvement in 5 axillary sentinel lymph nodes. I had seen her on 03/12/2020 in regard to the breast cancer. She had been seen for radiation oncology consultation by Dr. Gimenez on 03/04/2020. In the setting of T1b, N0 ER/CT positive disease, I had recommended limiting her systemic adjuvant therapy to endocrine therapy. As such, I did not request Oncotype DX. I did have concerns that her history of thromboembolism would contraindicate use of tamoxifen, and I would not have any other option for treating her if she could not tolerate an aromatase inhibitor. With that in mind, she did opt to undergo radiation to the right breast. She completed treatment on 04/10/2020 to a total dose of 4000 cGy, administered in 18 fractions. Adjuvant hormonal therapy with anastrozole 1 mg daily began on 04/16/2020. Her baseline DEXA scan showed normal bone mineral density with T score of 0.2 in the lumbar spine, 1.0 in the left femoral neck, and 0.9 in the right femoral neck. Her other medical illnesses include GERD, peripheral neuropathy, vitamin D deficiency, and chronic anxiety. She also has a history of cystitis. She is a non-smoker. She is seen for a follow-up visit. Thus far she has been tolerating the anastrozole with no adverse effects. She still complains, though, that her energy is not good. She has very limited activity. ECOG score is 2. She has good appetite. She has not had fever. She sometimes has sweating, typically in the mornings. She reports having nonproductive cough, sometimes with wheezing. It typically occurs after lying down. Her breathing is otherwise okay. She has occasional discomfort in her mid chest associated with swallowing and food tending to get clogged . Her acid reflux symptoms have been well controlled with medication. Bowel function remains adequate, though she tends to have frequent small bowel movements during the day. She has some bladder leakage. She has pain in her right knee and she also has developed some joint pain in her right thumb. She has no other joint/bone pain. She has just occasional headache. She has ongoing problems with neuropathy in her legs and feet. Medications: Arimidex (1 mg) Tablet Oral daily, Cymbalta 1.5 Capsule (of 60 mg) Capsule Delayed Release Particles Oral daily, Levothyroxine Sodium 1 Tablet (of 25 mcg) Oral daily, Metoprolol Tartrate 1 Tablet (of 25 mg) Oral b.i.d., Multivitamin Adult 1 Tablet Oral daily, Pantoprazole Sodium 1 Tablet (of 40 mg) Tablet, enteric coated Oral daily, Pregabalin 1 Capsule (of 150 mg) Oral b.i.d., Ventolin HFA 1 puff(s) (of 108 (90 base) mcg/act) Aerosol, solution Inhalation q 4 hours, Voltaren Gel (jelly) Transdermal PRN, Xarelto 1 (20 mg) Tablet Oral daily Allergies: Clindamycin HCl and Penicillin V Potassium. Vital Signs: Performed on July 15, 2020 14:12 Height - 66.00 in Weight - 253.2 lbs (HIGH) BSA - 2.21 sq.m BMI - 40.87 (HIGH) Temperature - 96.4 F (LOW) Pulse - 96 /min Respiration - 18 /min BP - 169/90 mm(hg) (HIGH) O2 Sat - 93 % (LOW) Pain - 0 Fatigue - 6 Physical Examination: Constitutional - She looks pretty good generally, Eyes - Sclerae nonicteric. Conjunctivae clear, ENMT - No lesions noted in the oral cavity, Hematologic/Lymphatic - No cervical, clavicular, or axillary adenopathy, Respiratory - Lungs are clear with good air movement bilaterally, Cardiovascular - Heart rhythm is regular. There is no murmur, gallop, or rub noted, Abdomen - Distended. Liver and spleen are not enlarged. There is no abdominal mass or ascites noted and there is no inguinal adenopathy, Extremities - Mild lower extremity edema, Neurologic - No focal neurologic deficits noted. Problem List: 1. Grade 1 infiltrating ductal carcinoma of the right breast, stage IA (pT1b, pN0, M0), ER/CT positive and HER-2/justyn negative. 2. 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 The disease involved right supraclavicular lymph node and spleen. Her lymphoma has been in remission following completion of 2 cycles of R-CEOP chemotherapy followed by 4 cycles of dose adjusted R-EPOCH, completed in July 2015. 3. Her treatment was complicated by Campylobacter colitis, by cold autoimmune hemolytic anemia, and by recurrent episodes of deep vein thrombosis. She remains anticoagulated with rivaroxaban. 4. GERD. 5. Peripheral neuropathy. 6. History of cystitis. 7. Vitamin D deficiency. 8. Chronic anxiety. Problems Addressed with this Encounter and Plan: 1. Patient with grade 1 infiltrating ductal carcinoma of the right breast, stage IA (pT1b, pN0, M0), ER/CT positive and HER-2/justyn negative. She has underwent excisional biopsy on 01/27/2020 followed by reexcision lumpectomy and axillary sentinel lymph node biopsy on 02/19/2020. She has had given radiation to the right breast, completed on 04/10/2020 to a total dose of 4000 cGy, administered in 18 fractions. Adjuvant hormonal therapy with anastrozole daily began on 04/16/2020. Thus far she has been tolerating it with no adverse effects. She will continue anastrozole 1 mg daily. I will see her again in 3 months. 2. 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 The disease involved right supraclavicular lymph node and spleen. Her lymphoma has been in remission following completion of 2 cycles of R-CEOP chemotherapy followed by 4 cycles of dose adjusted R-EPOCH, completed in July 2015. During followup there as been no evidence of recurrence of the lymphoma. She continues expectant management. 3. Recurrent episodes of deep vein thrombosis. She has been stable on anticoagulation with rivaroxaban with no evidence for any new thrombosis. Signed By: Wade Pablo M.D. <<Signature on File>>
== END 2020-07-15 13:33 | disposition home or self-care (01) ==
PROVIDERS: PCP Family Medicine; Visit Provider Internal Medicine Medical Oncology
DX: C50.811 Malignant neoplasm of overlapping sites of right female breast (principal); Z17.0 Estrogen receptor positive status [ER+]; C83.38 Diffuse large B-cell lymphoma, lymph nodes of multiple sites; K21.9 Gastro-esophageal reflux disease without esophagitis; G62.9 Polyneuropathy, unspecified; N30.90 Cystitis, unspecified without hematuria; E55.9 Vitamin D deficiency, unspecified; F41.9 Anxiety disorder, unspecified; Z79.811 Long term (current) use of aromatase inhibitors; Z79.899 Other long term (current) drug therapy
CPT/HCPCS: 99214

== ENCOUNTER 2020-09-17 15:56 | Outpatient (CLI) | payer MEDICARE, OTHER, SELFPAY ==
--- NOTE | 2020-09-21 06:47 | ONC FU_ITS ---
Dr. Pablo Patient Follow-Up Note Patient: Lexy Chawla Unit #: [id number]: 1945 Dicatated By: Wade Pablo M.D.Date of Visit:Sep 17, 2020 Onc Med Follow-up/Prog Note Chief Complaint: Lymphoma/breast cancer. 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 She also has grade 1 infiltrating ductal carcinoma of the right breast, stage IA (T1b, N0, M0), ER/NC positive and HER-2/justyn negative. Her lymphoma was diagnosed in 2014, when she presented with an enlarging right supraclavicular mass. She has been in remission following completion of chemotherapy in July 2015. On 11/22/2019 her routine screening mammogram was reported to be BI-RADS 0, incomplete. Findings included an irregular asymmetry in the upper outer quadrant of the right breast measuring 12 mm. Additional mammographic views and right breast ultrasound on 12/24/2019 was BI-RADS 4, suspicious. Mammogram reported a persistent spiculated nodule measuring 6 mm at the 10 o'clock position of the right breast. Ultrasound showed an area of shadowing and decreased echogenicity measuring 7 x 7 x 6 mm. Biopsy was recommended. Ultrasound of the left axilla at that time showed a complex lobulated mass measuring 2.0 x 1.6 x 1.6 cm, appearance of which was felt to be consistent with sebaceous cyst. Ultrasound-guided biopsy of the right breast mass on 01/02/2020 showed benign ductal epithelium in a background of stromal sclerosis and dense fibrotic tissue. On 01/27/2020 she underwent excisional biopsy of the breast mass under wire localization. The procedure also included excision of the left axillary mass. Pathology on the excisional biopsy showed grade 1 invasive ductal carcinoma measuring 0.7 cm in greatest dimension. The anterior margin was noted to be focally positive. The breast prognostic profile showed ER positive at 99% and NC positive at 99%. The tumor was negative for overexpression of HER-2/justyn, 0+ by IHC and amplification ratio by FISH of 0.9 with 1.7 HER-2 copies/cell. The Ki-67 was favorable at 4%. Pathology on the left axillary mass showed epithelial inclusion cyst. On 02/19/2020 she underwent right breast reexcision lumpectomy and right axillary sentinel lymph node biopsy. Pathology showed no residual malignancy in the lumpectomy specimen. There was no involvement in 5 axillary sentinel lymph nodes. I had seen her on 03/12/2020 in regard to the breast cancer. She had been seen for radiation oncology consultation by Dr. Gimenez on 03/04/2020. In the setting of T1b, N0 ER/NC positive disease, I had recommended limiting her systemic adjuvant therapy to endocrine therapy. As such, I did not request Oncotype DX. I did have concerns that her history of thromboembolism would contraindicate use of tamoxifen, and I would not have any other option for treating her if she could not tolerate an aromatase inhibitor. With that in mind, she did opt to undergo radiation to the right breast. She completed treatment on 04/10/2020 to a total dose of 4000 cGy, administered in 18 fractions. Adjuvant hormonal therapy with anastrozole 1 mg daily began on 04/16/2020. Her baseline DEXA scan showed normal bone mineral density with T score of 0.2 in the lumbar spine, 1.0 in the left femoral neck, and 0.9 in the right femoral neck. Her other medical illnesses include GERD, peripheral neuropathy, vitamin D deficiency, and chronic anxiety. She also has a history of cystitis. She is a non-smoker. She is seen for a follow-up visit. She had stopped taking her anastrozole in August because of increased joint pain including the wrists, elbows, ankles, and knees. The pain improved within a week after stopping the medication. She has otherwise been feeling pretty good generally, though she does complain that she feels tired a lot. She says she has been walking a little, but overall she has limited activity. ECOG score is 2. She has good appetite. She has not had fever. She sometimes wakes up in the night sweating. Her other main complaint is that she has ongoing problems with neuropathy pain in her feet, for which she has been taking pregabalin and duloxetine. She still questions whether the duloxetine is helping at all. She sometimes has cough and she continues to complain of shortness of breath with activity. She occasionally has nausea. Her acid reflux symptoms have improved. She has ongoing complaints with her bowel function, mainly not being able to have a complete bowel movement. She has some mild bladder incontinence. She occasionally has headache and she also has some dysequilibrium. She has numbness/tingling in her feet. Medications: Arimidex (1 mg) Tablet Oral daily, Cymbalta 1.5 Capsule (of 60 mg) Capsule Delayed Release Particles Oral daily, Levothyroxine Sodium 1 Tablet (of 25 mcg) Oral daily, Metoprolol Tartrate 1 Tablet (of 25 mg) Oral b.i.d., Multivitamin Adult 1 Tablet Oral daily, Pantoprazole Sodium 1 Tablet (of 40 mg) Tablet, enteric coated Oral daily, Pregabalin 1 Capsule (of 150 mg) Oral b.i.d., Ventolin HFA 1 puff(s) (of 108 (90 base) mcg/act) Aerosol, solution Inhalation q 4 hours, Voltaren Gel (jelly) Transdermal PRN, Xarelto 1 (20 mg) Tablet Oral daily Allergies: Clindamycin HCl and Penicillin V Potassium. Vital Signs: Performed on Sep 17, 2020 16:12 Height - 66.00 in Weight - 249.2 lbs (LOW) BSA - 2.20 sq.m BMI - 40.22 (HIGH) Temperature - 96.8 F (LOW) Pulse - 63 /min Respiration - 18 /min BP - 140/84 mm(hg) O2 Sat - 94 % (LOW) Pain - 0 Fatigue - 8 Physical Examination: Constitutional - She looks pretty good generally, Eyes - Sclerae nonicteric. Conjunctivae clear, ENMT - No lesions noted in the oral cavity, Hematologic/Lymphatic - No cervical, clavicular, or axillary adenopathy, Respiratory - Lungs are clear with good air movement bilaterally, Cardiovascular - Heart rhythm is regular. There is no murmur, gallop, or rub noted, Abdomen - Distended. Liver and spleen are not enlarged. There is no abdominal mass or ascites noted and there is no inguinal adenopathy, Extremities - No edema, Neurologic - No focal neurologic deficits noted. Problem List: 1. Grade 1 infiltrating ductal carcinoma of the right breast, stage IA (pT1b, pN0, M0), ER/NC positive and HER-2/justyn negative. 2. 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 The disease involved right supraclavicular lymph node and spleen. Her lymphoma has been in remission following completion of 2 cycles of R-CEOP chemotherapy followed by 4 cycles of dose adjusted R-EPOCH, completed in July 2015. 3. Her treatment was complicated by Campylobacter colitis, by cold autoimmune hemolytic anemia, and by recurrent episodes of deep vein thrombosis. She remains anticoagulated with rivaroxaban. 4. GERD. 5. Peripheral neuropathy. 6. History of cystitis. 7. Vitamin D deficiency. 8. Chronic anxiety. Problems Addressed with this Encounter and Plan: 1. Patient with grade 1 infiltrating ductal carcinoma of the right breast, stage IA (pT1b, pN0, M0), ER/NC positive and HER-2/justyn negative. She has underwent excisional biopsy on 01/27/2020 followed by reexcision lumpectomy and axillary sentinel lymph node biopsy on 02/19/2020. She has had given radiation to the right breast, completed on 04/10/2020 to a total dose of 4000 cGy, administered in 18 fractions. Adjuvant hormonal therapy with anastrozole daily began on 04/16/2020. As of 08/11/2020 the anastrozole was stopped due to a significant increase in joint pain. The pain improved within a week after stopping the medication. She will continue further adjuvant hormonal therapy with exemestane 25 mg daily, but that will be subject to verification of insurance coverage. She will be scheduled for a follow-up visit in 3 months. 2. 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 The disease involved right supraclavicular lymph node and spleen. Her lymphoma has been in remission following completion of 2 cycles of R-CEOP chemotherapy followed by 4 cycles of dose adjusted R-EPOCH, completed in July 2015. During followup there as been no evidence of recurrence of the lymphoma. She continues expectant management. 3. Recurrent episodes of deep vein thrombosis. She has been stable on anticoagulation with rivaroxaban with no evidence for any new thrombosis. However, due to her thromboembolism history, she will not be eligible for treatment with tamoxifen. 4. She has peripheral neuropathy of the lower extremities. It is managed symptomatically with a combination of pregabalin and duloxetine. She has uncertain benefit with the duloxetine at 90 mg daily. As such, she is advised to try decreasing the dosage to 60 mg. Depending on the response, she may continue tapering the dosage or go back up to the original dosage. Signed By: Wade Pablo M.D. <<Signature on File>>
== END 2020-09-17 15:57 | disposition home or self-care (01) ==
PROVIDERS: PCP Family Medicine; Visit Provider Internal Medicine Medical Oncology
DX: C50.811 Malignant neoplasm of overlapping sites of right female breast (principal); Z17.0 Estrogen receptor positive status [ER+]; Z90.11 Acquired absence of right breast and nipple; K21.9 Gastro-esophageal reflux disease without esophagitis; G62.9 Polyneuropathy, unspecified; E55.9 Vitamin D deficiency, unspecified; F41.9 Anxiety disorder, unspecified; N30.20 Other chronic cystitis without hematuria; K52.89 Other specified noninfective gastroenteritis and colitis; D59.19 Other autoimmune hemolytic anemia; I82.509 Chronic embolism and thrombosis of unspecified deep veins of unspecified lower extremity; Z79.01 Long term (current) use of anticoagulants; Z79.899 Other long term (current) drug therapy; Z92.3 Personal history of irradiation; Z85.72 Personal history of non-Hodgkin lymphomas; Z92.21 Personal history of antineoplastic chemotherapy
CPT/HCPCS: 99214

== ENCOUNTER → 2020-10-14 12:01 | Outpatient (BNVA) | payer MEDICARE, OTHER, SELFPAY | PROVIDERS: PCP Family Medicine; Visit Provider Nurse Practitioner Family | DX: Z20.822 Contact with and (suspected) exposure to COVID-19 (principal) | CPT/HCPCS: 87635 ==

== ENCOUNTER 2020-10-23 11:27 | Outpatient (RCR) | payer MEDICARE, OTHER, SELFPAY | END 2020-11-03 23:59 | disposition home or self-care (01) | LOC: SPT 11:27 | PROVIDERS: PCP Family Medicine; Referring Provider Family Medicine; Visit Provider Family Medicine | DX: M75.51 Bursitis of right shoulder (principal); M75.00 Adhesive capsulitis of unspecified shoulder | CPT/HCPCS: 97110; 97140; 97161 ==

== ENCOUNTER 2020-11-04 06:00 | Outpatient (RCR) | payer MEDICARE, OTHER, SELFPAY | END 2020-12-03 23:59 | disposition home or self-care (01) | LOC: SPT 06:00 | PROVIDERS: PCP Family Medicine; Referring Provider Family Medicine; Visit Provider Family Medicine | DX: M75.51 Bursitis of right shoulder (principal); M75.00 Adhesive capsulitis of unspecified shoulder | CPT/HCPCS: 97110; 97140 ==

== ENCOUNTER → 2020-12-07 14:16 | Outpatient (BNVA) | payer MEDICARE, OTHER, SELFPAY | PROVIDERS: PCP Family Medicine; Visit Provider Family Medicine | DX: K58.9 Irritable bowel syndrome, unspecified (principal); Z20.822 Contact with and (suspected) exposure to COVID-19; R68.89 Other general symptoms and signs; Z86.39 Personal history of other endocrine, nutritional and metabolic disease; I10 Essential (primary) hypertension | CPT/HCPCS: 80053; 84443; 85025; 87635 ==

== ENCOUNTER → 2020-12-15 11:55 | Outpatient (BNVA) | payer MEDICARE, OTHER, SELFPAY | PROVIDERS: PCP Family Medicine; Visit Provider Family Medicine | DX: K58.9 Irritable bowel syndrome, unspecified (principal); R68.89 Other general symptoms and signs; Z86.39 Personal history of other endocrine, nutritional and metabolic disease; I10 Essential (primary) hypertension | CPT/HCPCS: 87493; 87506 ==

== ENCOUNTER 2020-12-22 13:21 | Outpatient (CLI) | payer MEDICARE, OTHER, SELFPAY ==
[2020-12-22 14:07] LABS: Basophils % 0.2 %; Eosinophils # 0.7 10^3/uL (0.0-0.8); Eosinophils % 10.9 %; Hematocrit 36.8 % (37.0-47.0); Hemoglobin 11.8 g/dL (11.5-15.3); Lymphocytes # 1.2 10^3/uL (0.8-4.8); Lymphocytes % 20.1 %; Mean Corpuscular HGB Conc 32.1 g/dL (30.0-36.0); Mean Corpuscular Volume 99.7 fl (81-99); Mean Platelet Volume 9.6 fL (7.4-10.4); Monocytes # 0.6 10^3/uL (0.2-0.9); Neutrophils % 58.3 %; Nucleated Red Blood Cells % 0 %; Platelet Count 133 10^3/cmm (130-400); Red Blood Count 3.69 10^6/uL (4.1-5.3); Red Cell Distribution Width 14.6 % (12.1-15.1); White Blood Count 6.2 10^3/uL (4.0-10.0)
[2020-12-22 14:44] LABS: Alanine Aminotransferase 33 U/L (0-33); Albumin Level 3.8 g/dL (3.5-5.2); Alkaline Phosphatase 76 IU/L (35-105); Anion Gap 11.9 (5-19); Aspartate Amino Transferase 28 U/L (0-32); Blood Urea Nitrogen 16 mg/dL (8-23); Calcium 8.4 mg/dL (8.5-10.5); Carbon Dioxide 22 mmol/L (22-29); Chloride 114 mmol/L (98-107); Glucose 85 mg/dL (65-115); Lactate Dehydrogenase 245 U/L (135-214); Osmolality Calculated 298 mOsm/kg (285-295); Potassium 3.9 mmol/L (3.5-5.1); Sodium 144 mmol/L (136-145); Total Bilirubin 0.4 mg/dL (0.15-1.2); Total Protein 5.8 g/dL (6.6-8.7)
== END 2020-12-22 13:22 | disposition home or self-care (01) ==
LOC: ONCMED 13:24
PROVIDERS: PCP Family Medicine; Visit Provider Internal Medicine Medical Oncology
DX: C50.811 Malignant neoplasm of overlapping sites of right female breast (principal); Z17.0 Estrogen receptor positive status [ER+]; C83.38 Diffuse large B-cell lymphoma, lymph nodes of multiple sites; Z79.899 Other long term (current) drug therapy
CPT/HCPCS: 36415; 80053; 83615; 85025

== ENCOUNTER 2021-02-04 15:34 | Outpatient (CLI) | payer MEDICARE, OTHER, SELFPAY ==
[2021-02-04 16:45] LABS: Basophils % 0.2 %; Eosinophils # 0.6 10^3/uL (0.0-0.8); Eosinophils % 10.7 %; Hematocrit 39.2 % (37.0-47.0); Hemoglobin 12.5 g/dL (11.5-15.3); Lymphocytes # 2.5 10^3/uL (0.8-4.8); Lymphocytes % 42.8 %; Mean Corpuscular HGB Conc 31.9 g/dL (30.0-36.0); Mean Corpuscular Hemoglobin 31.6 pg (28.0-34.0); Mean Corpuscular Volume 99.2 fl (81-99); Mean Platelet Volume 9.4 fL (7.4-10.4); Monocytes # 0.6 10^3/uL (0.2-0.9); Monocytes % 9.6 %; Neutrophils # 2.12 10^3/uL (1.8-7.7); Neutrophils % 36.4 %; Nucleated Red Blood Cells % 0 %; Platelet Count 161 10^3/cmm (130-400); Red Blood Count 3.95 10^6/uL (4.1-5.3); Red Cell Distribution Width 15.1 % (12.1-15.1); White Blood Count 5.8 10^3/uL (4.0-10.0)
[2021-02-04 17:20] LABS: Alanine Aminotransferase 21 U/L (0-33); Albumin Level 3.9 g/dL (3.5-5.2); Alkaline Phosphatase 73 IU/L (35-105); Anion Gap 13.9 (5-19); Aspartate Amino Transferase 28 U/L (0-32); Blood Urea Nitrogen 13 mg/dL (8-23); Calcium 7.9 mg/dL (8.5-10.5); Carbon Dioxide 27 mmol/L (22-29); Chloride 106 mmol/L (98-107); Globulin 2.1 g/dL (1.3-4.6); Glucose 129 mg/dL (65-115); Iron 72 ug/dL (37-145); Lactate Dehydrogenase 303 U/L (135-214); Osmolality Calculated 298 mOsm/kg (285-295); Percent Saturation 24.3 % (20-50); Potassium 3.9 mmol/L (3.5-5.1); Sodium 143 mmol/L (136-145); Total Bilirubin 0.4 mg/dL (0.15-1.2); Total Iron Binding Capacity 296 mcg/dl; Unsaturated Iron Binding 224 ug/dL (112-347); Vitamin B12 577 pg/mL (232-1245)
--- NOTE | 2021-02-08 15:55 | ONC FU_ITS ---
Dr. Pablo Patient Follow-Up Note Patient: Lexy Chawla Unit #: [id number]: 1945 Dicatated By: Wade Pablo M.D.Date of Visit:Feb 04, 2021 Onc Med Follow-up/Prog Note Chief Complaint: Lymphoma/breast cancer. 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 She also has grade 1 infiltrating ductal carcinoma of the right breast, stage IA (T1b, N0, M0), ER/TX positive and HER-2/justyn negative. Her lymphoma was diagnosed in 2014, when she presented with an enlarging right supraclavicular mass. She has been in remission following completion of chemotherapy in July 2015. On 11/22/2019 her routine screening mammogram was reported to be BI-RADS 0, incomplete. Findings included an irregular asymmetry in the upper outer quadrant of the right breast measuring 12 mm. Additional mammographic views and right breast ultrasound on 12/24/2019 was BI-RADS 4, suspicious. Mammogram reported a persistent spiculated nodule measuring 6 mm at the 10 o'clock position of the right breast. Ultrasound showed an area of shadowing and decreased echogenicity measuring 7 x 7 x 6 mm. Biopsy was recommended. Ultrasound of the left axilla at that time showed a complex lobulated mass measuring 2.0 x 1.6 x 1.6 cm, appearance of which was felt to be consistent with sebaceous cyst. Ultrasound-guided biopsy of the right breast mass on 01/02/2020 showed benign ductal epithelium in a background of stromal sclerosis and dense fibrotic tissue. On 01/27/2020 she underwent excisional biopsy of the breast mass under wire localization. The procedure also included excision of the left axillary mass. Pathology on the excisional biopsy showed grade 1 invasive ductal carcinoma measuring 0.7 cm in greatest dimension. The anterior margin was noted to be focally positive. The breast prognostic profile showed ER positive at 99% and TX positive at 99%. The tumor was negative for overexpression of HER-2/justyn, 0+ by IHC and amplification ratio by FISH of 0.9 with 1.7 HER-2 copies/cell. The Ki-67 was favorable at 4%. Pathology on the left axillary mass showed epithelial inclusion cyst. On 02/19/2020 she underwent right breast reexcision lumpectomy and right axillary sentinel lymph node biopsy. Pathology showed no residual malignancy in the lumpectomy specimen. There was no involvement in 5 axillary sentinel lymph nodes. I had seen her on 03/12/2020 in regard to the breast cancer. She had been seen for radiation oncology consultation by Dr. Gimenez on 03/04/2020. In the setting of T1b, N0 ER/TX positive disease, I had recommended limiting her systemic adjuvant therapy to endocrine therapy. As such, I did not request Oncotype DX. I did have concerns that her history of thromboembolism would contraindicate use of tamoxifen, and I would not have any other option for treating her if she could not tolerate an aromatase inhibitor. With that in mind, she did opt to undergo radiation to the right breast. She completed treatment on 04/10/2020 to a total dose of 4000 cGy, administered in 18 fractions. Adjuvant hormonal therapy with anastrozole 1 mg daily began on 04/16/2020. Her baseline DEXA scan showed normal bone mineral density with T score of 0.2 in the lumbar spine, 1.0 in the left femoral neck, and 0.9 in the right femoral neck. Her other medical illnesses include GERD, peripheral neuropathy, vitamin D deficiency, and chronic anxiety. She also has a history of cystitis. She is a non-smoker. INTERIM HISTORY: She had stopped taking her anastrozole in August because of increased joint pain including the wrists, elbows, ankles, and knees. The pain improved within a week after stopping the medication. In September she began further adjuvant hormonal therapy with exemestane 25 mg daily. She is seen for a follow-up visit. She has not been feeling very good. She says her energy is bad and she has very limited activity. She is up and around, but she does use a wheelchair if she has to go very far. ECOG score is 2. Her appetite has been okay. She has not had fever, night sweats, or hot flashes. She has not had sore mouth or throat. She has shortness of breath with activity, and that has been getting worse during the past year. She sometimes has wheezing. She occasionally has cough. She does not complain of chest pain. She still has nausea occasionally and she had recurrence of acid reflux when she stopped her PPI. She was having diarrhea for 6 weeks, but that improved when she started probiotic. She has bladder incontinence. She has joint pain, especially in the right knee and she has ongoing problems with swelling in her ankles and feet. She occasionally has headache. She has occasional orthostatic lightheadedness. Her neuropathy is the same. Medications: Acidophilus 1 Tablet Tablet, chewable Oral b.i.d., Arimidex (1 mg) Tablet Oral daily, Cholestyramine Light 1 Packet (of 4 g) Pack Oral daily, Exemestane 1 Tablet (of 25 mg) Oral daily, Levothyroxine Sodium 1 Tablet (of 25 mcg) Oral daily, Metoprolol Tartrate 1 Tablet (of 25 mg) Oral b.i.d., Multivitamin Adult 1 Tablet Oral daily, Pantoprazole Sodium 1 Tablet (of 40 mg) Tablet, enteric coated Oral daily, Pregabalin 1 Capsule (of 150 mg) Oral b.i.d., Ventolin HFA 1 puff(s) (of 108 (90 base) mcg/act) Aerosol, solution Inhalation q 4 hours, Voltaren Gel (jelly) Transdermal PRN, Xarelto 1 (20 mg) Tablet Oral daily Allergies: Clindamycin HCl and Penicillin V Potassium. Vital Signs: Performed on Feb 04, 2021 16:15 Height - 66.00 in Weight - 254.6 lbs (HIGH) BSA - 2.22 sq.m BMI - 41.09 (HIGH) Temperature - 97.6 F (LOW) Pulse - 83 /min Respiration - 20 /min BP - 157/88 mm(hg) (HIGH) O2 Sat - 96 % Pain - 0 Fatigue - 8 Physical Examination: Constitutional - She looks pretty good generally, though she does have limited mobility, Eyes - Sclerae nonicteric. Conjunctivae clear, ENMT - No lesions noted in the oral cavity, Hematologic/Lymphatic - No cervical, clavicular, or axillary adenopathy, Respiratory - Lungs are clear with good air movement bilaterally, Cardiovascular - Heart rhythm is regular. There is no murmur, gallop, or rub noted, Abdomen - Distended. Liver and spleen are not enlarged. There is no abdominal mass or ascites noted and there is no inguinal adenopathy, Extremities - Mild edema, Neurologic - No focal neurologic deficits noted. Lab/Imaging: Test performed on Feb 04, 2021 16:30 Iron 72 mcg/dL LDH (Total) 303 U/L Sodium 143 mmol/L Vitamin B12 577 pg/mL Iron Binding Capacity (TIBC) 296 mcg/dl Potassium 3.9 mmol/L % Iron Saturation 24.3 % Chloride 106 mmol/L CO2 27 mmol/L UIBC 224 mcg/dL Anion Gap 13.9 BUN 13 mg/dL Creatinine 1.3 mg/dL Cr Clearance (Est) 68.1700 mL/min Glucose 129 mg/dL Osmolality - Calculated 298 mOsm/kg Calcium 7.9 mg/dL Protein, Total 6.0 g/dL Albumin 3.9 g/dL Globulin 2.1 g/dL Bilirubin, Total 0.4 mg/dL ALT (SGPT) 21 U/L AST (SGOT) 28 U/L Alkaline Phosphatase 73 IU/L WBC 5.8 10 3/uL RBC 3.95 10 6/uL HGB 12.5 g/dL HCT 39.2 % MCV 99.2 fl MCH 31.6 pg MCHC 31.9 g/dL RDW 15.1 % Platelet Count 161 10 3/cmm MPV 9.4 fL Neutrophils 2.12 10 3/uL Lymphocytes 2.5 10 3/uL Monocytes 0.6 10 3/uL Eosinophils 0.6 10 3/uL Basophils 0.0 10 3/uL Neutrophil % 36.4 % Lymphocyte % 42.8 % Monocyte % 9.6 % Eosinophil % 10.7 % Basophils % 0.2 % NRBC % 0 % Problem List: 1. Grade 1 infiltrating ductal carcinoma of the right breast, stage IA (pT1b, pN0, M0), ER/TX positive and HER-2/justyn negative. 2. 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 The disease involved right supraclavicular lymph node and spleen. Her lymphoma has been in remission following completion of 2 cycles of R-CEOP chemotherapy followed by 4 cycles of dose adjusted R-EPOCH, completed in July 2015. 3. Her treatment was complicated by Campylobacter colitis, by cold autoimmune hemolytic anemia, and by recurrent episodes of deep vein thrombosis. She remains anticoagulated with rivaroxaban. 4. GERD. 5. Peripheral neuropathy. 6. History of cystitis. 7. Vitamin D deficiency. 8. Chronic anxiety. Problems Addressed with this Encounter and Plan: 1. Patient with grade 1 infiltrating ductal carcinoma of the right breast, stage IA (pT1b, pN0, M0), ER/TX positive and HER-2/justyn negative. She has underwent excisional biopsy on 01/27/2020 followed by reexcision lumpectomy and axillary sentinel lymph node biopsy on 02/19/2020. She has had given radiation to the right breast, completed on 04/10/2020 to a total dose of 4000 cGy, administered in 18 fractions. Adjuvant hormonal therapy with anastrozole daily began on 04/16/2020. As of 08/11/2020 the anastrozole was stopped due to a significant increase in joint pain. The pain improved within a week after stopping the medication. In September she began further adjuvant hormonal therapy with exemestane 25 mg daily. At this point she appears to be tolerating the exemestane with acceptable toxicity, but she is having worsening shortness of breath, and she will be scheduled for pulmonary function studies and for a repeat echocardiogram. She will have further evaluation as indicated. In the meantime, in the absence of any evidence of recurrence of the breast cancer, she will continue adjuvant hormonal therapy with exemestane 25 mg daily. I will tentatively plan a follow-up visit in 3 months. 2. 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 The disease involved right supraclavicular lymph node and spleen. Her lymphoma has been in remission following completion of 2 cycles of R-CEOP chemotherapy followed by 4 cycles of dose adjusted R-EPOCH, completed in July 2015. During followup there as been no evidence of recurrence of the lymphoma. She continues expectant management. 3. Recurrent episodes of deep vein thrombosis. She has been stable on anticoagulation with rivaroxaban with no evidence for any new thrombosis. However, due to her thromboembolism history, she is not eligible for treatment with tamoxifen. 4. She has peripheral neuropathy of the lower extremities. It is managed symptomatically with a combination of pregabalin and duloxetine. She has uncertain benefit with the duloxetine at 90 mg daily. As such, she is advised to try decreasing the dosage to 60 mg. Depending on the response, she may continue tapering the dosage or go back up to the original dosage. Signed By: Wade Pablo M.D. <<Signature on File>>
== END 2021-02-04 15:35 | disposition home or self-care (01) ==
LOC: ONCMED 15:39
PROVIDERS: PCP Family Medicine; Visit Provider Internal Medicine Medical Oncology
DX: C50.811 Malignant neoplasm of overlapping sites of right female breast (principal); Z17.0 Estrogen receptor positive status [ER+]; Z90.11 Acquired absence of right breast and nipple; Z85.72 Personal history of non-Hodgkin lymphomas; K52.89 Other specified noninfective gastroenteritis and colitis; D59.12 Cold autoimmune hemolytic anemia; I82.509 Chronic embolism and thrombosis of unspecified deep veins of unspecified lower extremity; Z79.01 Long term (current) use of anticoagulants; K21.9 Gastro-esophageal reflux disease without esophagitis; G62.9 Polyneuropathy, unspecified; E55.9 Vitamin D deficiency, unspecified; F41.9 Anxiety disorder, unspecified; Z87.448 Personal history of other diseases of urinary system; Z79.818 Long term (current) use of other agents affecting estrogen receptors and estrogen levels; Z79.899 Other long term (current) drug therapy; Z92.3 Personal history of irradiation; Z92.21 Personal history of antineoplastic chemotherapy
CPT/HCPCS: 80053; 82607; 83540; 83550; 83615; 85025; 99214

== ENCOUNTER → 2021-02-18 13:42 | Outpatient (BNVA) | payer MEDICARE, OTHER, SELFPAY | PROVIDERS: PCP Family Medicine; Visit Provider Internal Medicine Medical Oncology | DX: Z01.812 Encounter for preprocedural laboratory examination (principal); Z20.822 Contact with and (suspected) exposure to COVID-19 | CPT/HCPCS: 87635 ==

== ENCOUNTER 2021-02-24 08:20 | Outpatient (CLI) | payer MEDICARE, OTHER, SELFPAY ==
--- NOTE | 2021-02-24 13:37 | PFTS_ITS ---
Date of Study:02/24/21 Date of Dictation: MECHANICS: Forced vital capacity (FVC) is reduced. Forced expiratory volume in one second (FEV1) is reduced. FEV1/FVC is normal. FLOW VOLUME LOOP: Narrow with scooping. LUNG VOLUMES: Total lung capacity (TLC) is reduced. Residual volume (RV) is reduced. DIFFUSING CAPACITY FOR CARBON MONOXIDE: Minimally reduced. INTERPRETATION: The postbronchodilator spirometry is consistent with moderate restriction. There is no significant postbronchodilator response. Lung volumes are consistent with moderate restriction. Gas exchange (DLCO) is minimally reduced. MTDD
== END 2021-02-24 08:21 | disposition home or self-care (01) ==
LOC: RT 08:22
PROVIDERS: PCP Family Medicine; Visit Provider Internal Medicine Medical Oncology
DX: R06.02 Shortness of breath (principal); R06.2 Wheezing
CPT/HCPCS: 94060; 94726; 94729; J7611

== ENCOUNTER 2021-03-23 10:10 | Outpatient (CLI) | payer MEDICARE, SELFPAY ==
--- NOTE | 2021-03-23 10:27 | USCV_ITS ---
Lexy Chawla Age: 75 Gender: F : 1945 Exam Date: 03/23/2021 10:35 Ordering Phys: Wade Pablo MD Technologist: EMMA Exam Location: [facility] – [place] Indication: SHORTNESS OF BREATH AND SWELLING BP: 128 / 80 HR: 73 Rhythm: Sinus Technical Quality: Technically difficult study MEASUREMENTS (Male / Female) Normal Values 2D ECHO LV Diastolic Diameter PLAX 3.9 cm 4.2 - 5.9 / 3.9 - 5.3 cm LV Systolic Diameter PLAX 2.7 cm IVS Diastolic Thickness 1.2 cm 0.6 - 1.0 / 0.6 - 0.9 cm IVS Systolic Thickness 1.6 cm LVPW Diastolic Thickness 1.6 cm 0.6 - 1.0 / 0.6 - 0.9 cm LVPW Systolic Thickness 1.7 cm LVOT Diameter 2.0 cm LV Ejection Fraction 2D Teich 59.0 % LA Diameter 3.0 cm Aorta at Sinotubular Diameter 2.3 cm M-MODE Aortic Annulus Diameter 2.7 cm LA Ao Ratio MM 1.1 MV E Point Septal Separation 0.8 cm DOPPLER AV Peak Velocity 106.0 cm/s LVOT Peak Velocity 64.0 cm/s AV Area Cont Eq vti 1.9 cm squared AV Area Cont Eq pk 1.9 cm squared MV Area PHT 3.0 cm squared Mitral E to A Ratio 0.6 MV E' Velocity 19.0 cm/s Mitral E to MV E' Ratio 5.7 Mitral E to LV E' Lateral Ratio 6.2 Mitral E to LV E' Septal Ratio 5.5 TR Peak Velocity 288.0 cm/s TR Peak Gradient 33.2 mmHg Right Atrial Pressure 3.0 mmHg Pulmonary Artery Systolic Pressu 36.2 mmHg PV Peak Velocity 93.0 cm/s RV Acceleration Time 0.1 s RV Ejection Time 0.3 s RV AcT/ET 0.3 FINDINGS Left Ventricle Normal left ventricular cavity size. Normal left ventricular systolic function. Left ventricular ejection fraction is estimated at 60 %.no regional wall motion abnormalities. Grade I/IV diastolic dysfunction (abnormal relaxation filling pattern), normal to mildly elevated filling pressures. Right Ventricle The right ventricle is normal in size and function. Right Atrium The right atrium is normal in size. Left Atrium The left atrium is normal in size. Mitral Valve Structurally normal mitral valve without significant stenosis or prolapse. There is no mitral regurgitation. Aortic Valve Structurally normal aortic valve without significant sclerosis or stenosis. There is no aortic regurgitation. Tricuspid Valve Structurally normal tricuspid valve without significant stenosis or regurgitation. Pulmonary artery systolic pressure is normal. Pulmonic Valve Structurally normal pulmonic valve without significant stenosis. There is no pulmonic regurgitation. Pericardium Normal pericardium without effusion. Aorta Normal ascending aorta dimension. CONCLUSIONS 1-Normal left ventricular cavity size. Normal left ventricular systolic function. Left ventricular ejection fraction is estimated at 60 %.no regional wall motion abnormalities. Grade I/IV diastolic dysfunction (abnormal relaxation filling pattern), normal to mildly elevated filling pressures. 2-There is no pericardial effusion. 3-No significant valve abnormalities. 4-Pulmonary artery systolic pressure is within normal limits. 5-Right atrial pressure is around 5 mm of mercury. 6-No significant change since the prior echocardiogram study of 06/19/2018. Jacob Trinh MD (Electronically Signed) Final Date: 23 March 2021 18:44 S
== END 2021-03-23 10:11 | disposition home or self-care (01) ==
LOC: RAD 10:23
PROVIDERS: PCP Family Medicine; Visit Provider Internal Medicine Medical Oncology
DX: R06.02 Shortness of breath (principal); M79.89 Other specified soft tissue disorders
CPT/HCPCS: 93306

== ENCOUNTER 2021-05-18 12:49 | Outpatient (CLI) | payer MEDICARE, SELFPAY ==
--- NOTE | 2021-05-19 07:03 | ONC FU_ITS ---
Dr. Pablo Patient Follow-Up Note Patient: Lexy Chawla Unit #: [id number]: 1945 Dicatated By: Wade Pablo M.D.Date of Visit:May 18, 2021 Onc Med Follow-up/Prog Note Chief Complaint: Lymphoma/breast cancer. 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 She also has grade 1 infiltrating ductal carcinoma of the right breast, stage IA (T1b, N0, M0), ER/IA positive and HER-2/justyn negative. Her lymphoma was diagnosed in 2014, when she presented with an enlarging right supraclavicular mass. She has been in remission following completion of chemotherapy in July 2015. On 11/22/2019 her routine screening mammogram was reported to be BI-RADS 0, incomplete. Findings included an irregular asymmetry in the upper outer quadrant of the right breast measuring 12 mm. Additional mammographic views and right breast ultrasound on 12/24/2019 was BI-RADS 4, suspicious. Mammogram reported a persistent spiculated nodule measuring 6 mm at the 10 o'clock position of the right breast. Ultrasound showed an area of shadowing and decreased echogenicity measuring 7 x 7 x 6 mm. Biopsy was recommended. Ultrasound of the left axilla at that time showed a complex lobulated mass measuring 2.0 x 1.6 x 1.6 cm, appearance of which was felt to be consistent with sebaceous cyst. Ultrasound-guided biopsy of the right breast mass on 01/02/2020 showed benign ductal epithelium in a background of stromal sclerosis and dense fibrotic tissue. On 01/27/2020 she underwent excisional biopsy of the breast mass under wire localization. The procedure also included excision of the left axillary mass. Pathology on the excisional biopsy showed grade 1 invasive ductal carcinoma measuring 0.7 cm in greatest dimension. The anterior margin was noted to be focally positive. The breast prognostic profile showed ER positive at 99% and IA positive at 99%. The tumor was negative for overexpression of HER-2/justyn, 0+ by IHC and amplification ratio by FISH of 0.9 with 1.7 HER-2 copies/cell. The Ki-67 was favorable at 4%. Pathology on the left axillary mass showed epithelial inclusion cyst. On 02/19/2020 she underwent right breast reexcision lumpectomy and right axillary sentinel lymph node biopsy. Pathology showed no residual malignancy in the lumpectomy specimen. There was no involvement in 5 axillary sentinel lymph nodes. I had seen her on 03/12/2020 in regard to the breast cancer. She had been seen for radiation oncology consultation by Dr. Gimenez on 03/04/2020. In the setting of T1b, N0 ER/IA positive disease, I had recommended limiting her systemic adjuvant therapy to endocrine therapy. As such, I did not request Oncotype DX. I did have concerns that her history of thromboembolism would contraindicate use of tamoxifen, and I would not have any other option for treating her if she could not tolerate an aromatase inhibitor. With that in mind, she did opt to undergo radiation to the right breast. She completed treatment on 04/10/2020 to a total dose of 4000 cGy, administered in 18 fractions. Adjuvant hormonal therapy with anastrozole 1 mg daily began on 04/16/2020. Her baseline DEXA scan showed normal bone mineral density with T score of 0.2 in the lumbar spine, 1.0 in the left femoral neck, and 0.9 in the right femoral neck. Her other medical illnesses include GERD, peripheral neuropathy, vitamin D deficiency, and chronic anxiety. She also has a history of cystitis. She is a non-smoker. INTERIM HISTORY: She had stopped taking her anastrozole in August 2020 because of increased joint pain including the wrists, elbows, ankles, and knees. The pain improved within a week after stopping the medication. In September she began further adjuvant hormonal therapy with exemestane 25 mg daily. As of her follow-up visit in February 2021 she still had limited activity, but she appears to be tolerating the anastrozole with acceptable toxicity. She is seen for a follow-up visit. She continues to complain that her energy is low, but about the same. She is able to do some walking and some light housework. Her ECOG score is 1. Her appetite has been okay. She has not had fever or hot flashes. She sometimes wakes up with sweating on the back of her neck. Her main complaint otherwise is that the neuropathy in her legs/feet has been bothering her quite a bit. She has continued pregabalin 150 mg twice daily. I tried adding duloxetine, but she did not tolerated at a dose higher than 60 mg and she subsequently stopped taking it. She reports having occasional nasal congestion and occasional cough. Her breathing has generally been okay, though at night she sometimes has wheezing. She thinks that it may just be positional. She has occasional chest pain which does not last long. Her stomach occasionally gets queasy. Her acid reflux is adequately managed with medication. She has been taking probiotic for the diarrhea, and she has it just occasionally now. She has some bladder incontinence. She continues to have joint pain, mainly just in the knees, and it is tolerable. She occasionally has headache and she occasionally has orthostatic dizziness. She has numbness in her legs and feet. Medications: Acidophilus Probiotic 1 Capsule Oral b.i.d., Exemestane 1 Tablet (of 25 mg) Oral daily, Metoprolol Tartrate 1 Tablet (of 25 mg) Oral b.i.d., Multivitamin Adult 1 Tablet Oral daily, Pantoprazole Sodium 1 Tablet (of 40 mg) Tablet, enteric coated Oral daily, Pregabalin 1 Capsule (of 150 mg) Oral b.i.d., Xarelto 1 (20 mg) Tablet Oral daily Allergies: Clindamycin HCl and Penicillin V Potassium. Vital Signs: Performed on May 18, 2021 13:22 Height - 66.00 in Weight - 253.6 lbs (LOW) BSA - 2.21 sq.m BMI - 40.93 (HIGH) Temperature - 98.1 F (LOW) Pulse - 86 /min Respiration - 20 /min BP - 151/95 mm(hg) (HIGH) O2 Sat - 95 % (LOW) Pain - 0 Fatigue - 8 Physical Examination: Constitutional - She has limited mobility, Eyes - Sclerae nonicteric. Conjunctivae clear, ENMT - No lesions noted in the oral cavity, Hematologic/Lymphatic - No cervical or clavicular adenopathy, Respiratory - Lungs are clear with good air movement bilaterally, Cardiovascular - Heart rhythm is regular. There is no murmur, gallop, or rub noted, Breasts - There is focal tenderness in the superior aspect of the right breast. There is no nodule or other palpable abnormality in that area. There is no axillary adenopathy noted, Abdomen - Distended. Liver and spleen are not enlarged. There is no abdominal mass or ascites noted and there is no inguinal adenopathy, Extremities - Slight edema, Neurologic - No focal neurologic deficits noted. Problem List: 1. Grade 1 infiltrating ductal carcinoma of the right breast, stage IA (pT1b, pN0, M0), ER/IA positive and HER-2/justyn negative. 2. 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 The disease involved right supraclavicular lymph node and spleen. Her lymphoma has been in remission following completion of 2 cycles of R-CEOP chemotherapy followed by 4 cycles of dose adjusted R-EPOCH, completed in July 2015. 3. Her treatment was complicated by Campylobacter colitis, by cold autoimmune hemolytic anemia, and by recurrent episodes of deep vein thrombosis. She remains anticoagulated with rivaroxaban. 4. GERD. 5. Peripheral neuropathy. 6. History of cystitis. 7. Vitamin D deficiency. 8. Chronic anxiety. Problems Addressed with this Encounter and Plan: 1. Patient with grade 1 infiltrating ductal carcinoma of the right breast, stage IA (pT1b, pN0, M0), ER/IA positive and HER-2/justyn negative. She has underwent excisional biopsy on 01/27/2020 followed by reexcision lumpectomy and axillary sentinel lymph node biopsy on 02/19/2020. She has had given radiation to the right breast, completed on 04/10/2020 to a total dose of 4000 cGy, administered in 18 fractions. Adjuvant hormonal therapy with anastrozole daily began on 04/16/2020. As of 08/11/2020 the anastrozole was stopped due to a significant increase in joint pain. The pain improved within a week after stopping the medication. In September she began further adjuvant hormonal therapy with exemestane 25 mg daily. During follow-up she has been tolerating the exemestane with acceptable toxicity. She has limited activity tolerance, but thus far there has been no evidence of recurrence of the breast cancer. She will continue adjuvant hormonal therapy with exemestane 25 mg daily. She is overdue for surveillance mammograms, and those will be scheduled. I will see her again in 3 months. 2. 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 The disease involved right supraclavicular lymph node and spleen. Her lymphoma has been in remission following completion of 2 cycles of R-CEOP chemotherapy followed by 4 cycles of dose adjusted R-EPOCH, completed in July 2015. During followup there has been no evidence of recurrence of the lymphoma. She continues expectant management. 3. Recurrent episodes of deep vein thrombosis. She has been stable on anticoagulation with rivaroxaban with no evidence for any new thrombosis. 4. She has peripheral neuropathy involving the lower extremities. It is managed symptomatically with pregabalin. Signed By: Wade Pablo M.D. <<Signature on File>>
== END 2021-05-18 12:50 | disposition home or self-care (01) ==
PROVIDERS: PCP Family Medicine; Visit Provider Internal Medicine Medical Oncology
DX: C50.811 Malignant neoplasm of overlapping sites of right female breast (principal); Z17.0 Estrogen receptor positive status [ER+]; C83.38 Diffuse large B-cell lymphoma, lymph nodes of multiple sites; K52.1 Toxic gastroenteritis and colitis; T45.1X5A Adverse effect of antineoplastic and immunosuppressive drugs, initial encounter; D59.12 Cold autoimmune hemolytic anemia; I82.599 Chronic embolism and thrombosis of other specified deep vein of unspecified lower extremity; Z79.01 Long term (current) use of anticoagulants; K21.9 Gastro-esophageal reflux disease without esophagitis; G62.9 Polyneuropathy, unspecified; E55.9 Vitamin D deficiency, unspecified; F41.8 Other specified anxiety disorders; Z87.448 Personal history of other diseases of urinary system; Z92.21 Personal history of antineoplastic chemotherapy; Z92.3 Personal history of irradiation; Z79.899 Other long term (current) drug therapy
CPT/HCPCS: 99214

== ENCOUNTER 2021-06-11 15:29 | Outpatient (CLI) | payer MEDICARE, SELFPAY ==
--- NOTE | 2021-06-11 15:37 | MM_ITS ---
WS: [id number] DIAGNOSTIC BILATERAL 3D TOMOSYNTHESIS DIGITAL MAMMOGRAM WITH CAD HISTORY: HX OF BREAST CA COMPARISON: 09/28/2018, 11/22/2019 TECHNIQUE: Bilateral craniocaudad, mediolateral oblique, and mediolateral views are submitted. Comput er aided detection utilized. Breast composition: There are scattered areas of fibroglandular density. Volume loss and postoperativ e changes RIGHT breast. No recurrent mass identified. Benign calcifications in the LEFT breast. MM/[place] [id number] IMPRESSION: BI-RADS: 2-Benign FOLLOW UP: 1 Year Follow-up
== END 2021-06-11 15:30 | disposition home or self-care (01) ==
LOC: RADSHAW 15:34
PROVIDERS: PCP Family Medicine; Visit Provider Surgery
DX: Z85.3 Personal history of malignant neoplasm of breast (principal)
CPT/HCPCS: 77062

== ENCOUNTER → 2021-08-23 12:49 | Outpatient (BNVA) | payer MEDICARE, SELFPAY | PROVIDERS: PCP Family Medicine; Visit Provider Urology | DX: N36.2 Urethral caruncle (principal); N30.20 Other chronic cystitis without hematuria; N39.3 Stress incontinence (female) (male); R31.0 Gross hematuria | CPT/HCPCS: 52000; 81003; 87077; 87086; 87186; 99203 ==

== ENCOUNTER 2021-09-16 11:31 | Oncology outpatient (recurring) (ONCR) | payer MEDICARE, SELFPAY ==
[2021-09-16 12:44] LABS: Basophils % 0.2 %; Eosinophils # 0.7 10^3/uL (0.0-0.8); Eosinophils % 11.6 %; Hematocrit 37.4 % (37.0-47.0); Hemoglobin 11.6 g/dL (11.5-15.3); Lymphocytes # 1.4 10^3/uL (0.8-4.8); Lymphocytes % 22.4 %; Mean Corpuscular Hemoglobin 31.1 pg (28.0-34.0); Mean Corpuscular Volume 100.3 fl (81-99); Mean Platelet Volume 10.2 fL (7.4-10.4); Monocytes # 0.8 10^3/uL (0.2-0.9); Monocytes % 12.4 %; Neutrophils # 3.31 10^3/uL (1.8-7.7); Neutrophils % 53.2 %; Nucleated Red Blood Cells % 0 %; Platelet Count 145 10^3/cmm (130-400); Red Blood Count 3.73 10^6/uL (4.1-5.3); Red Cell Distribution Width 13.9 % (12.1-15.1); White Blood Count 6.2 10^3/uL (4.0-10.0)
[2021-09-16 13:14] LABS: Albumin Level 3.7 g/dL (3.5-5.2); Alkaline Phosphatase 75 IU/L (35-105); Anion Gap 15.2 (5-19); Blood Urea Nitrogen 40 mg/dL (8-23); Calcium 8.5 mg/dL (8.5-10.5); Carbon Dioxide 21 mmol/L (22-29); Chloride 108 mmol/L (98-107); Globulin 2.6 g/dL (1.3-4.6); Glucose 126 mg/dL (65-115); Osmolality Calculated 299 mOsm/kg (285-295); Potassium 5.2 mmol/L (3.5-5.1); Sodium 139 mmol/L (136-145); Thyroid Stimulating Hormone 11.29 uIU/mL (0.27-4.20); Total Bilirubin 0.3 mg/dL (0.15-1.2); Total Protein 6.3 g/dL (6.6-8.7)
[2021-09-16 13:15] LABS: Alanine Aminotransferase 16 U/L (0-33); Aspartate Amino Transferase 26 U/L (0-32); Lactate Dehydrogenase 321 U/L (135-214)
== END 2021-09-16 23:59 | disposition home or self-care (01) ==
PROVIDERS: PCP Family Medicine; Referring Provider Internal Medicine; Visit Provider Internal Medicine Medical Oncology
DX: C50.811 Malignant neoplasm of overlapping sites of right female breast (principal); Z85.72 Personal history of non-Hodgkin lymphomas; E03.9 Hypothyroidism, unspecified; G62.9 Polyneuropathy, unspecified; Z86.718 Personal history of other venous thrombosis and embolism; Z17.0 Estrogen receptor positive status [ER+]; R53.83 Other fatigue
CPT/HCPCS: 36415; 80053; 83615; 84443; 85025; 99214

== ENCOUNTER → 2021-09-22 13:57 | Outpatient (BNVA) | payer OTHER, SELFPAY | PROVIDERS: PCP Family Medicine; Referring Provider Family Medicine; Visit Provider Family Medicine | DX: K58.9 Irritable bowel syndrome, unspecified (principal); E87.6 Hypokalemia | CPT/HCPCS: 80053 ==

== ENCOUNTER → 2021-10-08 09:36 | Outpatient (BNVA) | payer OTHER, SELFPAY | PROVIDERS: PCP Family Medicine; Visit Provider Urology | DX: N30.21 Other chronic cystitis with hematuria (principal); N36.2 Urethral caruncle | CPT/HCPCS: 81003; 87077; 87086; 87186 ==

== ENCOUNTER → 2021-10-11 14:22 | Outpatient (BNVA) | payer OTHER, SELFPAY | PROVIDERS: PCP Family Medicine; Visit Provider Family Medicine | DX: I10 Essential (primary) hypertension (principal); M19.90 Unspecified osteoarthritis, unspecified site | CPT/HCPCS: 80048 ==

== ENCOUNTER 2021-10-27 11:46 | Outpatient (CLI) | payer MEDICARE, SELFPAY ==
--- NOTE | 2021-10-27 12:19 | XRR_ITS ---
PROCEDURE INFORMATION: Exam: XR Left Ribs Exam date and time: 10/27/2021 12:35 PM Age: 75 years old Clinical indication: Chest wall pain; Left; Prior surgery; Surgery type: Breast; Patient HX: Pain lt side rib area after sneezing/coughing; Additional info: Left rib pain, HX breast CA, lymphoma TECHNIQUE: Imaging protocol: Radiologic exam of the Left ribs. Views: 2 views. COMPARISON: CT chest abd pel w con* 06/10/2019 9:41 AM FINDINGS: Bones/joints: Degenerative changes of the spine seen. Vasculature: An IVC filter is in place. Organs: Cholecystectomy clips project over the upper abdomen. Soft tissues: Normal. XR/XR ribs LT 2V* [id number] IMPRESSION: No displaced rib fracture identified.
[2021-10-27 13:15] LABS: Basophils % 0.2 %; Eosinophils # 0.3 10^3/uL (0.0-0.8); Eosinophils % 6.2 %; Hematocrit 38.5 % (37.0-47.0); Lymphocytes # 1.6 10^3/uL (0.8-4.8); Lymphocytes % 31.1 %; Mean Corpuscular HGB Conc 31.2 g/dL (30.0-36.0); Mean Corpuscular Hemoglobin 30.5 pg (28.0-34.0); Mean Platelet Volume 9.8 fL (7.4-10.4); Monocytes # 0.6 10^3/uL (0.2-0.9); Monocytes % 11.5 %; Neutrophils % 50.6 %; Nucleated Red Blood Cells % 0 %; Platelet Count 130 10^3/cmm (130-400); Red Blood Count 3.93 10^6/uL (4.1-5.3); Red Cell Distribution Width 14.1 % (12.1-15.1); White Blood Count 5.1 10^3/uL (4.0-10.0)
[2021-10-27 13:43] LABS: Alanine Aminotransferase 20 U/L (0-33); Albumin Level 3.8 g/dL (3.5-5.2); Alkaline Phosphatase 74 U/L (35-105); Anion Gap 15.6 (5-19); Aspartate Amino Transferase 24 U/L (0-32); Blood Urea Nitrogen 17 mg/dL (8-23); Calcium 8.8 mg/dL (8.5-10.5); Carbon Dioxide 24 mmol/L (22-29); Chloride 107 mmol/L (98-107); Globulin 2.5 g/dL (1.3-4.6); Glucose 120 mg/dL (65-115); Osmolality Calculated 299 mOsm/kg (285-295); Potassium 3.6 mmol/L (3.5-5.1); Sodium 143 mmol/L (136-145); Thyroid Stimulating Hormone 1.86 uIU/mL (0.27-4.20); Total Bilirubin 0.4 mg/dL (0.15-1.2); Total Protein 6.3 g/dL (6.6-8.7)
== END 2021-10-27 11:47 | disposition home or self-care (01) ==
PROVIDERS: Absent Provider Nurse Practitioner Family; PCP Family Medicine; Visit Provider Family Medicine
DX: R07.81 Pleurodynia (principal); Z85.3 Personal history of malignant neoplasm of breast; Z86.39 Personal history of other endocrine, nutritional and metabolic disease; C85.11 Unspecified B-cell lymphoma, lymph nodes of head, face, and neck
CPT/HCPCS: 71100; 80053; 84443; 85025

== ENCOUNTER 2021-12-27 09:10 | Outpatient (CLI) | payer MEDICARE, SELFPAY ==
--- NOTE | 2021-12-27 09:30 | FL_ITS ---
WS: [id number] Exam: FL barium swallow modifd [id number] Date/Time of Exam: 12/27/2021 9:13 AM Reason For Exam: Fluoroscopy time: 6min [id number] minutes # of spot films: 0 The exam was performed in conjunction with the speech therapy service. Swallowing function at the level of oropharynx was normal. The patient tolerated thin liquid, pudding consistency, nectar consistency and solid barium mixture foodstuffs without aspiration or penetratio n. There was significant retention of the food and fluid in the esophagus with retrograde peristalsis . Stenosis suspected at the GE junction which may be secondary to achalasia or stricture. The patient swallowed the barium pill without complication however the pill was retained in the distal esophagus during the exam. Recommendations: Endoscopic evaluation of the esophagus and stomach and/or barium esophagram should b e considered for further workup. FL/FL barium swallow modifd [id number] IMPRESSION: 1. The patient tolerated all consistencies of barium foodstuffs without aspirat ion or penetration into the laryngeal inlet. 2. Significant esophageal dysfunction with retrograde peristalsis and possible stricture or spasm at the GE junction.
== END 2021-12-27 09:11 | disposition home or self-care (01) ==
LOC: RAD 09:11
PROVIDERS: PCP Family Medicine; Visit Provider Family Medicine
DX: R13.10 Dysphagia, unspecified (principal)
CPT/HCPCS: 74230; 92611

== ENCOUNTER → 2022-01-12 08:45 | Outpatient (BNVA) | payer MEDICARE, SELFPAY | PROVIDERS: PCP Family Medicine; Visit Provider Nurse Practitioner Family | DX: N30.20 Other chronic cystitis without hematuria (principal); R31.0 Gross hematuria; N36.2 Urethral caruncle | CPT/HCPCS: 81003; 87077; 87086; 87186; 99213 ==

== ENCOUNTER 2022-03-28 14:00 | Emergency (ER) | payer MEDICARE, SELFPAY ==
[2022-03-28] VITALS (18 sets, daily range): BP systolic 129–174; BP diastolic 76–113; PULSE 91–119; RESP 17–18; TEMP 36.9; O2SAT 93–100; BMI 37.9
[2022-03-28 15:29] LABS: Basophils % 0.2 %; Eosinophils # 0.4 10^3/uL (0.0-0.8); Hematocrit 43.5 % (37.0-47.0); Hemoglobin 14.2 g/dL (11.5-15.3); Lymphocytes # 1.1 10^3/uL (0.8-4.8); Lymphocytes % 24.2 %; Mean Corpuscular HGB Conc 32.6 g/dL (30.0-36.0); Mean Corpuscular Hemoglobin 29.8 pg (28.0-34.0); Mean Corpuscular Volume 91.4 fl (81-99); Monocytes # 0.5 10^3/uL (0.2-0.9); Neutrophils # 2.57 10^3/uL (1.8-7.7); Neutrophils % 56.2 %; Nucleated Red Blood Cells % 0 %; Platelet Count 152 10^3/cmm (130-400); Red Blood Count 4.76 10^6/uL (4.1-5.3); Red Cell Distribution Width 14.8 % (12.1-15.1); White Blood Count 4.6 10^3/uL (4.0-10.0)
[2022-03-28 15:50] LABS: Alanine Aminotransferase 35 U/L (0-33); Albumin Level 4.7 g/dL (3.5-5.2); Alkaline Phosphatase 72 U/L (35-105); Anion Gap 17.6 (5-19); Aspartate Amino Transferase 37 U/L (0-32); Blood Urea Nitrogen 25 mg/dL (8-23); Calcium 9.3 mg/dL (8.5-10.5); Carbon Dioxide 25 mmol/L (22-29); Chloride 101 mmol/L (98-107); Globulin 2.7 g/dL (1.3-4.6); Glucose 102 mg/dL (65-115); Osmolality Calculated 295 mOsm/kg (285-295); Potassium 3.6 mmol/L (3.5-5.1); Sodium 140 mmol/L (136-145); Total Bilirubin 0.7 mg/dL (0.15-1.2); Total Protein 7.4 g/dL (6.6-8.7)
[2022-03-28 15:51] LABS: Lactic Sepsis W/Reflex 1.4 mmol/L (0.5-2.2)
[2022-03-28] MEDS: sodium chloride 0.9% 1,000 ML 999 ML IV (18:10)
--- NOTE | 2022-03-28 19:10 | W.ED.NAVMDI ---
HPI - Nausea/Vomiting/Diarrhea General: Chief complaint: Nausea/Vomiting/Diarrhea Stated complaint: Sandhu sent;n/v/d/weight loss Time Seen by Provider: 03/28/22 17:16 Source: patient Mode of arrival: EMS Limitations: no limitations History of Present Illness: This 76-year-old female with a history of irritable bowel syndrome, breast cancer and hypothyroidism presents to the ER with nausea that started on Monday (6 days ago). The following day, she developed diarrhea. Bowel movements are watery. There is associated poor appetite. Patient has no fever or vomiting. She denies any sick contacts. She is clinically stable and in no acute distress. Associated nausea: Yes Associated symtoms: Reports nausea; Denies change in vision, chest pain, dysuria or headache(s) Review of Systems Const: Denies: chills, body aches or change in appetite Eyes: Denies: change in vision or eye discharge ENMT: Denies: throat pain, dental pain or nasal discharge Card: Denies: chest pain or lightheadedness GI: Reports: nausea and other (Diarrhea) : Denies: dysuria Musc: Denies: neck pain or back pain Neuro: Denies: headache(s) or weakness in extremities Psych: Denies: depression Carlos/Lymph: Denies: easy bruising All/Imm: Denies: urticaria, tongue swelling or facial swelling PFS ED PFSH: Medical History (Updated 03/28/22 @ 19:12 by Cesar Barajas MD) Breast cancer, right Chronic cystitis Diverticulitis GERD (gastroesophageal reflux disease) History of hypothyroidism Hx of deep venous thrombosis left leg Hx of vaginal bleeding Patient presents again with complaint of bleeding which she believes came from the vaginal area. This occurred last night. On exam today no actual bleeding seen anywhere. Stitch from her vault suspension was again noted today on exam. No granulation tissue was noted on exam. However, due to this intermittent reporting of bleeding, I went ahead and removed the stitch. On removal, the stitch appeared to not be attached to anything other than the vaginal wall. Patient still had a urethral caruncle noted with a small spot adjacent to it which is suspicious for possible bleeding from that area. With her being on the Xarelto, she may have bled from either the caruncle or from the stitch in the vagina. Questions were answered. Follow-up as needed. Hypertension IBS (irritable bowel syndrome) Osteoarthritis Peripheral neuropathy Unspecified B-cell lymphoma, lymph nodes of head, face, and neck (~2016) in remission-- under care of Samy pretty Surgical History H/O colonoscopy 2013 H/O esophagogastroduodenoscopy 2018 H/O excision of mass H/O ovarian cystectomy (~1996) Left-- Laparotomy History of bunionectomy (~2001) left History of laparotomy (~1996) left ovarian cystectomy History of surgery on right wrist (~12/2010) History of tonsillectomy and adenoidectomy (~1951) Hx of breast biopsy (~1993) 1993-- 1 cyst removed from left breast and 2 cysts removed from right breast. All pathologies were benign. Hx of cholecystectomy (~02/2005) Laparoscopic. Performed by Dr. Blanton at [facility] in [place], [place]. Hx of hysterectomy (~04/08/14) with vaginal repair------- TVH, LSO, Uterosacral ligament suspension, Anterior vaginal repair, Perineorrhaphy, Single incision suburethral sling, Cystoscopy, Lysis of bowel adhesions. 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 Performed by Dr. Remi Musa at [facility] in [place], [place]. Surgical findings: Third degree cystocele, second to third degree uterine prolapse, adhesions of the sigmoid to the left fundal portion of the uterus and to the left ovary, left ovarian cyst present. S/P lumpectomy, right breast (01/27/20) Family History Grandfather Diabetes Maternal Mother Breast cancer dx at age 45 Denies family history of Colon cancer Ovarian cancer Heart disease Hypercholesteremia Anesthesia complication Bleeding disorder Hypertension Uterine cancer Thyroid disease Stroke Social History Smoking and tobacco status: never smoked Alcohol intake: never Household members: spouse Marital status: Current occupational status: employed History of recent travel: No Additional social history: - Tobacco use: Never Alcohol use: Occasional Drug use: Never Physical Exam Const: COMMON NORMALS: no acute distress, patient oriented x3, no limitations and alert HENMT: COMMON NORMALS: normocephalic HEAD & SCALP: normocephalic Eye: COMMON NORMALS: EOMs intact bilaterally Neck/C-Spine: COMMON NORMALS: full ROM and supple Chest: COMMONS NORMALS: normal inspection of the chest Resp: COMMON NORMALS: normal respiratory effort, No retractions, No use of accessory muscles and clear to auscultation bilaterally AUSCULTATION: clear to auscultation bilaterally Cardio: COMMON NORMALS: regular rate, regular rhythm and No murmurs present (Cardio) RATE: regular rate RHYTHM: regular rhythm GI: COMMON NORMALS: Normal to inspection, nondistended, normoactive bowel sounds present and non-tender : COMMON NORMALS: Yes no CVA tenderness BLADDER/KIDNEY EXAM: Yes no CVA tenderness Back/Pelvis: COMMON NORMALS: no CVA tenderness and no thoracic nor lumbar tenderness Extremity: GENERAL: Yes normal exam except as noted Neuro: COMMON NORMALS: patient oriented x3 and no focal motor deficits SENSORIUM/ORIENTATION: Yes alert Psych: COMMON NORMALS: mental status grossly normal and cooperative Course Vital Signs: Vital signs: Vital Signs Temperature 98.5 F 03/28/22 14:20 Pulse Rate 119 H 03/28/22 14:20 Respiratory Rate 18 03/28/22 14:20 Blood Pressure 160/113 03/28/22 18:05 Pulse Oximetry 100 03/28/22 18:05 Oxygen Delivery Me thod 03/28/22 14:20 MDM - Nausea/Vomiting/Diarrhea Medical Decision Making Medical decision making: Presently, patient primarily has nausea and diarrhea. She has not vomited in a few days. She has no abdominal pain and on exam, abdomen is non surgical. Completed blood tests are unremarkable. I believe that she has gastroenteritis that will be treated symptomatically. She was given a prescription for Zofran and advised to follow-up with her primary care physician for reevaluation. Reasons to return were discussed. Patient verbalized understanding and agrees with the plan Lab Data 03/28/22 15:11 03/28/22 15:11 Laboratory Results WBC 4.6 10^3/uL (4.0-10.0) 03/28/22 15:11 RBC 4.76 10^6/uL (4.1-5.3) 03/28/22 15:11 Hgb 14.2 g/dL (11.5-15.3) 03/28/22 15:11 Hct 43.5 % (37.0-47.0) 03/28/22 15:11 MCV 91.4 fl (81-99) 03/28/22 15:11 MCH 29.8 pg (28.0-34.0) 03/28/22 15:11 MCHC 32.6 g/dL (30.0-36.0) 03/28/22 15:11 RDW 14.8 % (12.1-15.1) 03/28/22 15:11 Plt Count 152 10^3/cmm (130-400) 03/28/22 15:11 MPV 10.0 fL (7.4-10.4) 03/28/22 15:11 Neut % (Auto) 56.2 % 03/28/22 15:11 Lymph % (Auto) 24.2 % 03/28/22 15:11 Pacific % (Auto) 10.0 % 03/28/22 15:11 Eos % (Auto) 9.0 % 03/28/22 15:11 Baso % (Auto) 0.2 % 03/28/22 15:11 Neut # (Auto) 2.57 10^3/uL (1.8-7.7) 03/28/22 15:11 Lymph # (Auto) 1.1 10^3/uL (0.8-4.8) 03/28/22 15:11 Pacific # (Auto) 0.5 10^3/uL (0.2-0.9) 03/28/22 15:11 Eos # (Auto) 0.4 10^3/uL (0.0-0.8) 03/28/22 15:11 Baso # (Auto) 0.0 10^3/uL (0.0-0.1) 03/28/22 15:11 Nucleated RBC % (auto) 0 % 03/28/22 15:11 Nucleated RBCs # 0.0 /100WBC 03/28/22 15:11 Sodium 140 mmol/L (136-145) 03/28/22 15:11 Potassium 3.6 mmol/L (3.5-5.1) 03/28/22 15:11 Chloride 101 mmol/L (98-107) 03/28/22 15:11 Carbon Dioxide 25 mmol/L (22-29) 03/28/22 15:11 Anion Gap 17.6 (5-19) 03/28/22 15:11 BUN 25 mg/dL (8-23) H 03/28/22 15:11 Creatinine 1.0 mg/dL (0.5-0.9) H 03/28/22 15:11 GFR Calculation Not Reportable 03/28/22 15:11 Glucose 102 mg/dL (65-115) 03/28/22 15:11 Calculated Osmolality 295 mOsm/kg (285-295) 03/28/22 15:11 Lactic Acid 1.4 mmol/L (0.5-2.2) 03/28/22 15:11 Calcium 9.3 mg/dL (8.5-10.5) 03/28/22 15:11 Total Bilirubin 0.7 mg/dL (0.15-1.2) 03/28/22 15:11 AST 37 U/L (0-32) H 03/28/22 15:11 ALT 35 U/L (0-33) H 03/28/22 15:11 Alkaline Phosphatase 72 U/L (35-105) 03/28/22 15:11 Total Protein 7.4 g/dL (6.6-8.7) 03/28/22 15:11 Albumin 4.7 g/dL (3.5-5.2) 03/28/22 15:11 Globulin 2.7 g/dL (1.3-4.6) 03/28/22 15:11 Discharge Plan Discharge Patient Disposition: Home Clinical Impression: Gastroenteritis Condition: Stable Prescriptions: New ondansetron 4 mg tablet,disintegrating 4 mg PO Q6H PRN (Reason: nausea and vomiting) Qty: 20 0RF No Action Women's 50 Plus Multivitamin 400 mcg-500 mg calcium-20 mcg tablet 1 tab PO DAILY Daily Probiotic 2.5 billion cell capsule PO BID ibuprofen 800 mg tablet 200 mg PO ONCE PRN estradiol [Estrace] 0.01 % (0.1 mg/gram) cream See Rx Instructions .ROUTE .COMPLEX Qty: 42.5 1RF Rx Instructions: Apply to affected area twice a week as directed diclofenac sodium 75 mg tablet,delayed release (DR/EC) 75 mg PO BID PRN (Reason: pain) Qty: 60 2RF pantoprazole 40 mg tablet,delayed release (DR/EC) See Rx Instructions .ROUTE .COMPLEX Qty: 90 3RF Dose Instruction: TAKE 1 TABLET BY MOUTH EVERY DAY Rx Instructions: TAKE 1 TABLET BY MOUTH EVERY DAY pregabalin 150 mg capsule 150 mg PO BID Qty: 60 5RF tramadol 50 mg tablet 50 mg PO .bed time PRN (Reason: pain) 60 Days Qty: 60 1RF exemestane 25 mg tablet 25 mg PO DAILY Qty: 30 3RF Rx Instructions: must administer after a meal doxycycline hyclate 100 mg capsule 100 mg PO BID Qty: 60 4RF metoprolol tartrate 25 mg tablet See Rx Instructions .ROUTE .COMPLEX Qty: 60 3RF Dose Instruction: TAKE ONE TABLET BY MOUTH TWICE DAILY Rx Instructions: TAKE ONE TABLET BY MOUTH TWICE DAILY Xarelto 20 mg tablet See Rx Instructions .ROUTE .COMPLEX Qty: 30 3RF Hold Instructions: Resume on 02/21/20. Dose Instruction: TAKE ONE TABLET BY MOUTH DAILY Rx Instructions: TAKE ONE TABLET BY MOUTH DAILY levothyroxine 100 mcg tablet 100 mcg PO DAILY Qty: 90 3RF hydrocodone-acetaminophen 5-325 mg tablet 1 tab PO Q6H PRN (Reason: pain) 7 Days Qty: 28 0RF promethazine-codeine 6.25-10 mg/5 mL syrup 5 ml PO Q4H PRN (Reason: cough) Qty: 473 3RF Discharge Orders: Discharge ED (Routine); Ordered 03/28/22 Ordered By: Cesar Barajas Referrals: Torin Sandhu MD [Primary Care Provider] - Discharge Diet: Advance as tolerated Discharge Activity: Resume usual activity Patient Instructions: Opioid Safety, Pain Management Activity Restrictions/Additional Instructions: Take Zofran as needed. Maintain adequate fluid intake. Follow-up with your primary care physician in 3 to 5 days for reevaluation. Return with new or worsening symptoms. Coding Level of Care Code ED Blind Slat Stapling Machine Operator for Coleen Fregoso
== END 2022-03-28 19:47 | disposition home or self-care (01) ==
PROVIDERS: Physician Assistant; Emergency Provider Family Medicine; PCP Family Medicine
DX: K52.9 Noninfective gastroenteritis and colitis, unspecified (principal); Z85.3 Personal history of malignant neoplasm of breast; I10 Essential (primary) hypertension; Z85.72 Personal history of non-Hodgkin lymphomas
CPT/HCPCS: 36415; 80053; 83605; 85025; 96360; 96361; 99284; J7030

== ENCOUNTER → 2022-04-11 12:48 | Outpatient (BNVA) | payer MEDICARE, SELFPAY | PROVIDERS: PCP Family Medicine; Visit Provider Urology | DX: N30.20 Other chronic cystitis without hematuria (principal); R33.9 Retention of urine, unspecified; R31.0 Gross hematuria; N36.2 Urethral caruncle | CPT/HCPCS: 52000; 81003; 87077; 87086; 87186; 99213 ==

== ENCOUNTER 2022-05-02 15:34 | Outpatient (CLI) | payer MEDICARE, SELFPAY ==
--- NOTE | 2022-05-02 15:40 | XR_ITS ---
WS: [id number] Right hand, 3 views, 05/02/2022 Clinical Data: worsening pain PIP joint middle finger Comparison: Right hand, 05/15/2020 Findings: No fractures or dislocations are seen. The soft tissues are unremarkable. There is sublux ation of the first MCP joint unchanged. There is a fusion of the wrist joint with a plate and screws which extend from the distal radius across the carpal bones into the base of the right third metacarp al. The carpal bones show almost bony total fusion. The PIP and DIP joints show no abnormalities. XR/XR hand RT min 3V* [id number] Impression: 1. Orthopedic fusion of the right wrist with a plate and screws. 2. 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
== END 2022-05-02 15:35 | disposition home or self-care (01) ==
LOC: RAD 15:37
PROVIDERS: PCP Family Medicine; Visit Provider Family Medicine
DX: M19.041 Primary osteoarthritis, right hand (principal)
CPT/HCPCS: 73130

== ENCOUNTER 2022-05-05 10:05 | Oncology outpatient (recurring) (ONCR) | payer MEDICARE, SELFPAY ==
[2022-05-05 11:20] LABS: Basophils % 0.2 %; Eosinophils # 0.4 10^3/uL (0.0-0.8); Eosinophils % 8.3 %; Hematocrit 39.1 % (37.0-47.0); Hemoglobin 12.5 g/dL (11.5-15.3); Lymphocytes # 1.1 10^3/uL (0.8-4.8); Lymphocytes % 24.9 %; Mean Corpuscular Hemoglobin 29.8 pg (28.0-34.0); Mean Corpuscular Volume 93.1 fl (81-99); Mean Platelet Volume 9.9 fL (7.4-10.4); Monocytes # 0.3 10^3/uL (0.2-0.9); Monocytes % 7.4 %; Nucleated Red Blood Cells % 0 %; Platelet Count 123 10^3/cmm (130-400); Red Cell Distribution Width 15.1 % (12.1-15.1); White Blood Count 4.6 10^3/uL (4.0-10.0)
[2022-05-05 11:44] LABS: Alanine Aminotransferase 23 U/L (0-33); Albumin Level 3.8 g/dL (3.5-5.2); Alkaline Phosphatase 66 U/L (35-105); Anion Gap 15.5 (5-19); Aspartate Amino Transferase 27 U/L (0-32); Blood Urea Nitrogen 21 mg/dL (8-23); Calcium 8.9 mg/dL (8.5-10.5); Carbon Dioxide 25 mmol/L (22-29); Chloride 106 mmol/L (98-107); Globulin 2.4 g/dL (1.3-4.6); Glucose 181 mg/dL (65-115); Lactate Dehydrogenase 239 U/L (135-214); Osmolality Calculated 304 mOsm/kg (285-295); Potassium 3.5 mmol/L (3.5-5.1); Sodium 143 mmol/L (136-145); Total Bilirubin 0.5 mg/dL (0.15-1.2); Total Protein 6.2 g/dL (6.6-8.7)
== END 2022-06-03 23:59 | disposition home or self-care (01) ==
PROVIDERS: PCP Family Medicine; Referring Provider Internal Medicine; Visit Provider Internal Medicine Medical Oncology
DX: C50.811 Malignant neoplasm of overlapping sites of right female breast (principal); Z17.0 Estrogen receptor positive status [ER+]; I82.509 Chronic embolism and thrombosis of unspecified deep veins of unspecified lower extremity; Z85.72 Personal history of non-Hodgkin lymphomas; Z79.01 Long term (current) use of anticoagulants; Z79.818 Long term (current) use of other agents affecting estrogen receptors and estrogen levels; Z92.21 Personal history of antineoplastic chemotherapy; Z92.3 Personal history of irradiation
CPT/HCPCS: 36415; 80053; 83615; 85025; 99214

== ENCOUNTER 2022-05-11 12:18 | Outpatient (CLI) | payer MEDICARE, SELFPAY ==
--- NOTE | 2022-05-11 12:30 | CT_ITS ---
WS: [id number] CT ABDOMEN AND PELVIS WITH AND WITHOUT CONTRAST HISTORY: Urethral Caruncle, history of lymphoma and breast cancer. TECHNIQUE: Unenhanced 5 mm axial imaging first performed through the abdomen. Post contrast imaging t hrough the abdomen and pelvis. Oral contrast has been provided. Sagittal and coronal reformats are s ubmitted. All CT scans at [facility] use at least one of these dose optimization techniques: automated exposure control; mA and/or kV adjustment per patient size (includes targeted exams where d ose is matched to clinical indication); or iterative reconstruction. CONTRAST: Omnipaque 350; 95 mL IV. DLP: 2952.07 mGy.cm COMPARISON: 06/10/2019 Lung bases are clear. Mild cardiomegaly. No hiatal hernia. Hepatic cyst LEFT lobe measures 2.3 x 2.1 cm. Normally enhancing portal vein. Physiologic dilatation of the common bile duct from the cholecystectomy. Similar to prior studies. No pancreatic head mass. No pancreatic duct dilatation. Normal pancreas and spleen. No adrenal mass. Kidneys are mildly atrophic. No solid mass or obstruction. Large RIGHT renal cyst from the superior p ole measures 7.2 x 7.3 cm and unchanged. No ureteral dilatation. IVC filter. Mild atherosclerosis aor ta. Celiac axis and SMA are intact. The splenic artery is poorly enhancing. Very similar to prior elizabeth dies. There is some motion and breathing artifact which may be obscuring the splenic artery. No ascites or adenopathy. Nondistended stomach. No oral contrast was provided. No small bowel obstruction. The appendix is norm al. Breathing motion artifact on the postcontrast images. Sigmoid diverticulosis without acute divert iculitis. No free fluid in the pelvis. Urinary bladder is very low-lying. Bladder is minimally distended. In th e region of the urethra there is some very minimal soft tissue prominence. This could potentially be the urethral caruncle. There is no enhancement. L5 anterolisthesis by [address]/CT abdomen pelvis wo/w [id number] IMPRESSION: 1. No ascites or adenopathy within the abdomen or pelvis. 2. Hepatic and RIGHT renal cysts. No solid mass. 3. Prior cholecystectomy. 4. Sigmoid diverticulosis without acute diverticulitis. 5. Urinary bladder is low lying. Cannot definitely identified a urethral carun lexa. There is some very minimal soft tissue which is nonenhancing in the expect ed location of the urethra.
[2022-05-11] MEDS: iohexol 350 mg/mL 500 mL Btl (per mL) IV (12:49)
== END 2022-05-11 12:19 | disposition home or self-care (01) ==
PROVIDERS: PCP Family Medicine; Visit Provider Urology
DX: N36.2 Urethral caruncle (principal); Z85.3 Personal history of malignant neoplasm of breast; Z85.72 Personal history of non-Hodgkin lymphomas; K76.89 Other specified diseases of liver; N28.1 Cyst of kidney, acquired; Z90.49 Acquired absence of other specified parts of digestive tract; K57.30 Diverticulosis of large intestine without perforation or abscess without bleeding; R31.0 Gross hematuria; N30.20 Other chronic cystitis without hematuria
CPT/HCPCS: 74178; 81003; 99213; Q9967

== ENCOUNTER → 2022-06-01 13:15 | Outpatient (BNVA) | payer MEDICARE, SELFPAY | PROVIDERS: PCP Family Medicine; Referring Provider Family Medicine; Visit Provider Specialist | DX: M19.041 Primary osteoarthritis, right hand (principal); Z98.1 Arthrodesis status | CPT/HCPCS: 73130; 80053; 85025; 85651; 86140; 86200; 86431; 86705; 86706; 86709; 86803; 87340; 99204 ==

== ENCOUNTER 2022-06-09 15:38 | Oncology outpatient (recurring) (ONCR) | payer MEDICARE, SELFPAY | END 2022-07-03 23:59 | disposition home or self-care (01) | LOC: ONCMED 15:39 | PROVIDERS: PCP Family Medicine; Referring Provider Internal Medicine; Visit Provider Internal Medicine Medical Oncology | DX: C50.811 Malignant neoplasm of overlapping sites of right female breast (principal); Z17.0 Estrogen receptor positive status [ER+]; Z79.818 Long term (current) use of other agents affecting estrogen receptors and estrogen levels; Z85.72 Personal history of non-Hodgkin lymphomas; Z92.21 Personal history of antineoplastic chemotherapy; Z92.3 Personal history of irradiation | CPT/HCPCS: 99214 ==

== ENCOUNTER 2022-06-13 12:59 | Outpatient (CLI) | payer MEDICARE, SELFPAY ==
--- NOTE | 2022-06-13 13:15 | MM_ITS ---
WS: [id number] BILATERAL 3D TOMOSYNTHESIS DIGITAL DIAGNOSTIC MAMMOGRAPHY WITH CAD CLINICAL INFORMATION: Z12.39 - Encounter for other screening for malignant neop... HISTORY: RIGHT breast cancer COMPARISON: June 11, 2021 TECHNIQUE: Bilateral CC, MLO, and ML views. FINDINGS: Scattered fibroglandular densities bilaterally. Volume loss and postoperative changes upper outer RIG HT breast unchanged in appearance. Treatment-related changes RIGHT breast with skin thickening. A few incidental punctate calcifications LEFT breast. No suspicious focal mass, asymmetry, calcifications, or architectural distortion. No evidence of kaushal gnancy. MM/[place] [id number] IMPRESSION: BI-RADS: 2-Benign FOLLOW UP: 1 Year Follow-up Recommend return to annual diagnostic mammography.
== END 2022-06-13 13:00 | disposition home or self-care (01) ==
LOC: RAD 13:03
PROVIDERS: PCP Family Medicine; Visit Provider Obstetrics & Gynecology
DX: Z85.3 Personal history of malignant neoplasm of breast (principal)
CPT/HCPCS: 77062; G0279

== ENCOUNTER → 2022-06-21 12:56 | Outpatient (BNVA) | payer MEDICARE, SELFPAY | PROVIDERS: PCP Family Medicine; Visit Provider Nurse Practitioner Family | DX: M19.041 Primary osteoarthritis, right hand (principal); Z98.1 Arthrodesis status | CPT/HCPCS: 99213 ==

== ENCOUNTER 2022-09-05 13:43 | Oncology outpatient (recurring) (ONCR) | payer MEDICARE, SELFPAY | END 2022-10-03 23:59 | disposition home or self-care (01) | PROVIDERS: PCP Family Medicine; Referring Provider Internal Medicine; Visit Provider Internal Medicine Medical Oncology | DX: C50.811 Malignant neoplasm of overlapping sites of right female breast (principal); Z17.0 Estrogen receptor positive status [ER+]; Z79.818 Long term (current) use of other agents affecting estrogen receptors and estrogen levels; Z85.72 Personal history of non-Hodgkin lymphomas; Z92.21 Personal history of antineoplastic chemotherapy; Z92.3 Personal history of irradiation | CPT/HCPCS: 99213 ==

== ENCOUNTER 2022-12-16 11:00 | Oncology outpatient (recurring) (ONCR) | payer MEDICARE, SELFPAY ==
[2022-12-08 10:44] VITALS: BP 145/81; PULSE 86; RESP 16; TEMP 36.8; O2SAT 94
[2022-12-08 10:51] LABS: Basophils % 0.2 %; Eosinophils # 0.7 10^3/uL (0.0-0.8); Eosinophils % 14.8 %; Hematocrit 38.3 % (36-47); Lymphocytes # 1.4 10^3/uL (0.8-4.8); Lymphocytes % 29.2 %; Mean Corpuscular HGB Conc 33.7 g/dL (30-55); Mean Corpuscular Hemoglobin 32.3 pg (27-33); Mean Corpuscular Volume 95.8 fl (85-98); Mean Platelet Volume 9.7 fL (7.4-10.4); Monocytes # 0.4 10^3/uL (0.2-0.9); Monocytes % 7.6 %; Neutrophils # 2.24 10^3/uL (1.8-7.7); Neutrophils % 47.6 %; Nucleated Red Blood Cells % 0 %; Platelet Count 157 10^3/cmm (157-399); Red Cell Distribution Width 15.7 % (12.1-15.1); White Blood Count 4.72 10^3/uL (3.29-11.43)
[2022-12-08 11:07] LABS: Alanine Aminotransferase 33 U/L (0-33); Albumin Level 3.7 g/dL (3.5-5.2); Alkaline Phosphatase 102 U/L (35-105); Aspartate Amino Transferase 47 U/L (0-32); Blood Urea Nitrogen 9 mg/dL (8-23); Calcium 8.1 mg/dL (8.5-10.5); Carbon Dioxide 25 mmol/L (22-29); Chloride 110 mmol/L (98-107); Globulin 2.1 g/dL (1.3-4.6); Glucose 131 mg/dL (65-115); Osmolality Calculated 298 mOsm/kg (285-295); Sodium 144 mmol/L (136-145); Total Bilirubin 0.9 mg/dL (0.15-1.2); Total Protein 5.8 g/dL (6.6-8.7)
[2022-12-08 11:08] LABS: Lactate Dehydrogenase 300 U/L (135-214)
[2022-12-08 14:26] LABS: Magnesium 1.4 mg/dL (1.7-2.3)
[2022-12-16 11:39] LABS: Alanine Aminotransferase 32 U/L (0-33); Albumin Level 3.6 g/dL (3.5-5.2); Alkaline Phosphatase 106 U/L (35-105); Anion Gap 13.6 (5-19); Aspartate Amino Transferase 32 U/L (0-32); Blood Urea Nitrogen 9 mg/dL (8-23); Calcium 8.2 mg/dL (8.5-10.5); Carbon Dioxide 23 mmol/L (22-29); Chloride 112 mmol/L (98-107); Creatinine Clr Calc Pharmacy 49.8672; Globulin 2.2 g/dL (1.3-4.6); Glucose 123 mg/dL (65-115); Osmolality Calculated 300 mOsm/kg (285-295); Potassium 3.6 mmol/L (3.5-5.1); Sodium 145 mmol/L (136-145); Total Bilirubin 0.7 mg/dL (0.15-1.2); Total Protein 5.8 g/dL (6.6-8.7)
== END 2023-01-03 23:59 | disposition home or self-care (01) ==
PROVIDERS: Nurse Practitioner Family; PCP Family Medicine; Referring Provider Internal Medicine; Visit Provider Internal Medicine Medical Oncology
DX: E87.6 Hypokalemia (principal)
CPT/HCPCS: 36415; 80053; 83615; 83735; 85025; 99214

== ENCOUNTER 2023-03-14 12:52 | Oncology outpatient (recurring) (ONCR) | payer MEDICARE, SELFPAY ==
[2023-03-14 13:03] VITALS: BP 154/83; PULSE 85; RESP 18; TEMP 36.7; O2SAT 96
[2023-03-14 13:15] LABS: Basophils % 0.2 %; Eosinophils # 0.9 10^3/uL (0.0-0.8); Eosinophils % 14.8 %; Hematocrit 36.1 % (36-47); Lymphocytes # 1.5 10^3/uL (0.8-4.8); Lymphocytes % 26.8 %; Mean Corpuscular Hemoglobin 32.7 pg (27-33); Mean Corpuscular Volume 99.2 fl (85-98); Mean Platelet Volume 9.4 fL (7.4-10.4); Monocytes # 0.6 10^3/uL (0.2-0.9); Monocytes % 9.6 %; Neutrophils # 2.77 10^3/uL (1.8-7.7); Neutrophils % 48.3 %; Nucleated Red Blood Cells % 0 %; Platelet Count 143 10^3/cmm (157-399); Red Blood Count 3.64 10^6/uL (3.85-5.65); Red Cell Distribution Width 14.3 % (12.1-15.1); White Blood Count 5.74 10^3/uL (3.29-11.43)
[2023-03-14 13:38] LABS: Alanine Aminotransferase 24 U/L (0-33); Albumin Level 3.6 g/dL (3.5-5.2); Alkaline Phosphatase 117 U/L (35-105); Anion Gap 13.2 (5-19); Aspartate Amino Transferase 30 U/L (0-32); Blood Urea Nitrogen 16 mg/dL (8-23); Calcium 8.7 mg/dL (8.5-10.5); Carbon Dioxide 24 mmol/L (22-29); Chloride 111 mmol/L (98-107); Globulin 2.6 g/dL (1.3-4.6); Glucose 113 mg/dL (65-115); Lactate Dehydrogenase 238 U/L (135-214); Osmolality Calculated 300 mOsm/kg (285-295); Potassium 4.2 mmol/L (3.5-5.1); Sodium 144 mmol/L (136-145); Total Bilirubin 0.5 mg/dL (0.15-1.2); Total Protein 6.2 g/dL (6.6-8.7)
[2023-03-14 15:55] LABS: Magnesium 1.9 mg/dL (1.7-2.3)
== END 2023-04-05 23:59 | disposition home or self-care (01) ==
PROVIDERS: Nurse Practitioner Family; PCP Family Medicine; Referring Provider Internal Medicine; Visit Provider Internal Medicine Medical Oncology
DX: E87.6 Hypokalemia (principal); C50.811 Malignant neoplasm of overlapping sites of right female breast; Z17.0 Estrogen receptor positive status [ER+]; Z79.818 Long term (current) use of other agents affecting estrogen receptors and estrogen levels; Z85.72 Personal history of non-Hodgkin lymphomas; Z92.21 Personal history of antineoplastic chemotherapy; Z92.3 Personal history of irradiation; Z79.01 Long term (current) use of anticoagulants
CPT/HCPCS: 36415; 80053; 83615; 83735; 85025; 99214

== ENCOUNTER → 2023-04-13 13:07 | Outpatient (BNVA) | payer MEDICARE, SELFPAY | PROVIDERS: PCP Family Medicine; Visit Provider Family Medicine | DX: I10 Essential (primary) hypertension (principal); R04.0 Epistaxis; K22.2 Esophageal obstruction; K58.0 Irritable bowel syndrome with diarrhea; N39.3 Stress incontinence (female) (male); L20.9 Atopic dermatitis, unspecified; M15.9 Polyosteoarthritis, unspecified | CPT/HCPCS: 80048; 83735; 85025 ==

== ENCOUNTER 2023-06-30 09:20 | Emergency (ER) | payer MEDICARE, SELFPAY ==
[2023-06-30 09:23] VITALS: BP 139/86; PULSE 87; RESP 16; O2SAT 98
--- NOTE | 2023-06-30 09:24 | ED_ITS ---
HPI - Epistaxis 2 General: Chief complaint: Epistaxis Stated complaint: nose bleed Time Seen by Provider: 06/30/23 09:21 Source: patient and family Mode of arrival: wheelchair Limitations: no limitations History of Present Illness: Patient is a nice 77-year-old female who presents to ED today along with her for evaluation of epistaxis that started around 7 AM this morning. They were originally seen at the walk-in clinic and pressure was held for almost an hour which did not control bleeding. She does take Xarelto. She states she does have a history of rare nosebleeds that she can normally stop with pressure. Blood pressure is controlled upon arrival. No recent injury or trauma. MD complaint: epistaxis Location: left nostril Onset (ago): hour(s) Duration: constant Context: other anticoagulant use Associated symptoms: Reports no associated symptoms; Deny fever(s), headache(s), sinus pain or vomiting Treatment prior to arrival: nose pinching Review of Systems 2 Const: Denies: fever(s) Eyes: Denies: change in vision ENMT: Reports: epistaxis; Denies: throat pain, uvular edema, enlarged tonsils, odynophagia, ear or mastoid pain, nasal discharge, nasal congestion or sinus pain Card: Denies: chest pain Resp: Denies: dyspnea GI: Denies: nausea or vomiting Musc: Denies: neck pain Neuro: Denies: headache(s) PFSH ED 2 PFSH: Medical History Lower extremity deep venous thrombosis Hypothyroidism Breast cancer Diffuse large B cell lymphoma Peripheral neuropathy Osteoarthritis Breast cancer, right Hypertension Hx of deep venous thrombosis left leg GERD (gastroesophageal reflux disease) Diverticulitis IBS (irritable bowel syndrome) Urethral caruncle Chronic cystitis Hx of vaginal bleeding Patient presents again with complaint of bleeding which she believes came from the vaginal area. This occurred last night. On exam today no actual bleeding seen anywhere. Stitch from her vault suspension was again noted today on exam. No granulation tissue was noted on exam. However, due to this intermittent reporting of bleeding, I went ahead and removed the stitch. On removal, the stitch appeared to not be attached to anything other than the vaginal wall. Patient still had a urethral caruncle noted with a small spot adjacent to it which is suspicious for possible bleeding from that area. With her being on the Xarelto, she may have bled from either the caruncle or from the stitch in the vagina. Questions were answered. Follow-up as needed. Surgical History S/P lumpectomy, right breast (01/27/20) H/O excision of mass H/O colonoscopy 2013 H/O esophagogastroduodenoscopy 2018 History of laparotomy (~1996) left ovarian cystectomy Hx of hysterectomy (~04/08/14) with vaginal repair------- TVH, LSO, Uterosacral ligament suspension, Anterior vaginal repair, Perineorrhaphy, Single incision suburethral sling, Cystoscopy, Lysis of bowel adhesions. 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 Performed by Dr. Remi Musa at [facility] in [place], [place]. Surgical findings: Third degree cystocele, second to third degree uterine prolapse, adhesions of the sigmoid to the left fundal portion of the uterus and to the left ovary, left ovarian cyst present. History of surgery on right wrist (~12/2010) Hx of cholecystectomy (~02/2005) Laparoscopic. Performed by Dr. Blanton at [facility] in [place], [place]. History of bunionectomy (~2001) left H/O ovarian cystectomy (~1996) Left-- Laparotomy Hx of breast biopsy (~1993) 1993-- 1 cyst removed from left breast and 2 cysts removed from right breast. All pathologies were benign. History of tonsillectomy and adenoidectomy (~195) Family History Grandfather Diabetes Maternal Mother Breast cancer dx at age 45 Denies family history of Colon cancer Ovarian cancer Heart disease Hypercholesteremia Anesthesia complication Bleeding disorder Hypertension Uterine cancer Thyroid disease Stroke Social History Smoking and tobacco/nicotine status: never used tobacco/nicotine Physical Exam 2 Const: COMMON NORMALS: patient oriented x3, no limitations, healthy appearing, alert and well nourished GENERAL APPEARANCE: cooperative and other (acute epistaxis ) HENMT: COMMON NORMALS: normocephalic and atraumatic HEAD & SCALP: normal to inspection, normocephalic and atraumatic FACE & SINUS: normal facial exam NOSE: Epistaxis present on the left posterior source, active bleeding and clots present THROAT: posterior oropharynx normal (apart from blood from acute epistaxis ) and tonsils normal; no uvular edema Eye: GENERAL EYE: appearance normal, both eyes and all related structures Neck/C-Spine: COMMON NORMALS: no lymphadenopathy GENERAL: Yes normal visual inspection Resp: COMMON NORMALS: normal respiratory effort and clear to auscultation bilaterally AUSCULTATION: clear to auscultation bilaterally Cardio: COMMON NORMALS: regular rate and regular rhythm RATE: regular rate RHYTHM: regular rhythm Neuro: COMMON NORMALS: patient oriented x3 SENSORIUM/ORIENTATION: Yes alert Procedures Epistaxis Control Nostril: left Nose Prepped With: oxymetazoline Direct Inspection: posterior source indentified Clots Removed by: blowing nose and manually Cautery Used: none Device Inserted: hemostatic balloon Patient Tolerated Procedure: well Course 2 Vital Signs: Vital signs: Vital Signs Pulse Rate 86 06/30/23 11:12 Respiratory Rate 16 06/30/23 09:23 Blood Pressure 131/83 06/30/23 11:12 Pulse Oximetry 94 06/30/23 11:12 Oxygen Delivery Me thod Room Air 06/30/23 11:12 [facility] - Epistaxis Medical Decision Making Patient is 77-year-old female on Xarelto here for a posterior epistaxis. Posterior Rhino Rocket was placed with good hemostasis. She was monitored here in the emergency department for over an hour and bleeding is still controlled. She did complain of some mild lightheadedness. Blood work obtained. Her hemoglobin is 11.2. Most recent comparison was 2.5 months ago and it was 12.6 then. She was given a liter of IV fluids and does feel better. She is tolerating Rhino Rocket well. Patient will be allowed discharge with strict return precautions. Recommend she follow-up with primary care early next week for removal. Differential Diagnosis Likely posterior epistaxis Medical Records I reviewed the patient's medical records. Lab Data I reviewed the patient's lab results. 06/30/23 10:30 06/30/23 11:15 Laboratory Results WBC 6.02 10^3/uL (3.29-11.43) 06/30/23 10:30 RBC 3.52 10^6/uL (3.85-5.65) L 06/30/23 10:30 Hgb 11.20 g/dL (11.27-16.99) L 06/30/23 10:30 Hct 35.2 % (36-47) L 06/30/23 10:30 MCV 100.0 fl (85-98) H 06/30/23 10:30 MCH 31.8 pg (27-33) 06/30/23 10:30 MCHC 31.8 g/dL (30-55) 06/30/23 10:30 RDW 15.3 % (12.1-15.1) H 06/30/23 10:30 Plt Count 163 10^3/cmm (157-399) 06/30/23 10:30 MPV 10.9 fL (7.4-10.4) H 06/30/23 10:30 Neut % (Auto) 59.7 % 06/30/23 10:30 Lymph % (Auto) 22.6 % 06/30/23 10:30 Duchesne % (Auto) 8.1 % 06/30/23 10:30 Eos % (Auto) 9.1 % 06/30/23 10:30 Baso % (Auto) 0.3 % 06/30/23 10:30 Neut # (Auto) 3.59 10^3/uL (1.8-7.7) 06/30/23 10:30 Lymph # (Auto) 1.4 10^3/uL (0.8-4.8) 06/30/23 10:30 Duchesne # (Auto) 0.5 10^3/uL (0.2-0.9) 06/30/23 10:30 Eos # (Auto) 0.6 10^3/uL (0.0-0.8) 06/30/23 10:30 Baso # (Auto) 0.0 10^3/uL (0.0-0.1) 06/30/23 10:30 Nucleated RBC % (auto) 0 % 06/30/23 10:30 Nucleated RBCs # 0.0 /100WBC 06/30/23 10:30 Sodium 144 mmol/L (136-145) 06/30/23 11:15 Potassium 4.3 mmol/L (3.5-5.1) 06/30/23 11:15 Chloride 116 mmol/L (98-107) H 06/30/23 11:15 Carbon Dioxide 21 mmol/L (22-29) L 06/30/23 11:15 Anion Gap 11.3 (5-19) 06/30/23 11:15 BUN 21 mg/dL (8-23) 06/30/23 11:15 Creatinine 1.1 mg/dL (0.5-0.9) H 06/30/23 11:15 GFR Calculation Not Reportable 06/30/23 11:15 Glucose 104 mg/dL (65-115) 06/30/23 11:15 Calculated Osmolality 301 mOsm/kg (285-295) H 06/30/23 11:15 Calcium 7.7 mg/dL (8.5-10.5) L 06/30/23 11:15 Total Bilirubin 0.5 mg/dL (0.15-1.2) 06/30/23 11:15 AST 20 U/L (0-32) 06/30/23 11:15 ALT 17 U/L (0-33) 06/30/23 11:15 Alkaline Phosphatase 88 U/L (35-105) 06/30/23 11:15 Total Protein 5.1 g/dL (6.6-8.7) L 06/30/23 11:15 Albumin 3.1 g/dL (3.5-5.2) L 06/30/23 11:15 Globulin 2.0 g/dL (1.3-4.6) 06/30/23 11:15 No radiology studies performed this visit Discharge Plan Discharge Patient Disposition: Home Clinical Impression: Acute posterior epistaxis Condition: Stable Prescriptions: No Action Women's 50 Plus Multivitamin 400 mcg-500 mg calcium-20 mcg tablet 1 tab PO DAILY ascorbic acid (vitamin C) 1,000 mg capsule 1 g PO BID magnesium oxide 400 mg magnesium capsule 400 mg PO DAILY cholestyramine (with sugar) 4 gram powder 2 g PO BID Qty: 368.76 5RF Rx Instructions: administer w/meal; avoid other meds within 1hr before or 4-6hr after dose levothyroxine 100 mcg tablet 100 mcg PO DAILY Qty: 90 3RF pregabalin 150 mg capsule 150 mg PO BID Qty: 60 5RF methenamine hippurate 1 gram tablet See Rx Instructions .ROUTE .COMPLEX Qty: 60 12RF Dose Instruction: TAKE ONE TABLET BY MOUTH TWICE DAILY FOR recurrent uti, take with 1000mg of vitamin C each DOSE Rx Instructions: TAKE ONE TABLET BY MOUTH TWICE DAILY FOR recurrent uti, take with 1000mg of vitamin C each DOSE hydrocortisone 2.5 % cream with perineal applicator See Rx Instructions .ROUTE .COMPLEX Qty: 30 3RF Dose Instruction: ONE application rectally TWICE DAILY NEEDED FOR HEMORRHOIDS Rx Instructions: ONE application rectally TWICE DAILY NEEDED FOR HEMORRHOIDS exemestane 25 mg tablet 25 mg PO DAILY Qty: 90 3RF Rx Instructions: must administer after a meal hydrocodone-acetaminophen 7.5-325 mg tablet 1 tab PO BID PRN (Reason: pain) 30 Days Qty: 60 0RF ondansetron 4 mg tablet,disintegrating 4 mg PO Q6H PRN (Reason: nausea and vomiting) Qty: 20 0RF potassium chloride 20 mEq tablet,ER particles/crystals 20 meq PO DAILY Probiotic 3 billion cell Capsule 3,000 mmu cells PO BID Rx Instructions: administer with a meal Metamucil 3.4 gram/5.4 gram Powder 1 tbsp PO DAILY Rx Instructions: mix into at least 8 oz of water or juice before administering triamcinolone acetonide 0.1 % cream 1 applic topical DAILY PRN (Reason: Skin Irritation) pantoprazole 40 mg tablet,delayed release (DR/EC) 40 mg PO DAILY diclofenac sodium 75 mg tablet,delayed release (DR/EC) 75 mg PO DAILY PRN (Reason: Pain) metoprolol tartrate 25 mg tablet 25 mg PO BID Xarelto 20 mg tablet 20 mg PO DAILY Discharge Orders: Discharge ED (Routine); Ordered 06/30/23 Ordered By: Rocío Almanzar Referrals: Torin Sandhu MD [Primary Care Provider] - Patient Instructions: Nosebleed (ED), Epistaxis - Adult Activity Restrictions/Additional Instructions: As we discussed please avoid any nasal trauma including blowing. Attempt to sneeze with your mouth open. Avoid bending over, lifting, or any other activity that would increase abdominal/chest pressure as this could cause additional bleeding from your nare. Please follow-up with your primary care provider Monday/Monday of next week so they can remove nasal device. You need to return to the emergency department for continued nasal bleeding that you cannot control at home. Coding Level of Care Code ED Unemployment Examiner for Coleen Fregoso
[2023-06-30] MEDS: oxymetazoline 0.05% Nasal Spray 15 mL 2 SPRAY NOSTRIL-B (09:57)
[2023-06-30] MEDS: sodium chloride 0.9% 1,000 ML 999 ML IV (10:34)
[2023-06-30 10:52] LABS: Basophils % 0.3 %; Eosinophils # 0.6 10^3/uL (0.0-0.8); Eosinophils % 9.1 %; Hematocrit 35.2 % (36-47); Lymphocytes # 1.4 10^3/uL (0.8-4.8); Lymphocytes % 22.6 %; Mean Corpuscular HGB Conc 31.8 g/dL (30-55); Mean Corpuscular Hemoglobin 31.8 pg (27-33); Mean Platelet Volume 10.9 fL (7.4-10.4); Monocytes # 0.5 10^3/uL (0.2-0.9); Monocytes % 8.1 %; Neutrophils # 3.59 10^3/uL (1.8-7.7); Neutrophils % 59.7 %; Nucleated Red Blood Cells % 0 %; Platelet Count 163 10^3/cmm (157-399); Red Blood Count 3.52 10^6/uL (3.85-5.65); Red Cell Distribution Width 15.3 % (12.1-15.1); White Blood Count 6.02 10^3/uL (3.29-11.43)
[2023-06-30 11:12] VITALS: BP 131/83; PULSE 86; O2SAT 94
[2023-06-30] MEDS: LORazepam 2 mg/mL INJ 10 mL MDV 0.5 MG IVP (11:21)
[2023-06-30 11:27] LABS: Slide Review Slide Review Perform
[2023-06-30 11:38] LABS: Alanine Aminotransferase 17 U/L (0-33); Albumin Level 3.1 g/dL (3.5-5.2); Alkaline Phosphatase 88 U/L (35-105); Anion Gap 11.3 (5-19); Aspartate Amino Transferase 20 U/L (0-32); Blood Urea Nitrogen 21 mg/dL (8-23); Calcium 7.7 mg/dL (8.5-10.5); Carbon Dioxide 21 mmol/L (22-29); Chloride 116 mmol/L (98-107); Creatinine Clr Calc Pharmacy 47.5364; Glucose 104 mg/dL (65-115); Osmolality Calculated 301 mOsm/kg (285-295); Potassium 4.3 mmol/L (3.5-5.1); Sodium 144 mmol/L (136-145); Total Bilirubin 0.5 mg/dL (0.15-1.2); Total Protein 5.1 g/dL (6.6-8.7)
== END 2023-06-30 12:12 | disposition home or self-care (01) ==
PROVIDERS: Emergency Provider Physician Assistant; PCP Family Medicine
DX: R04.0 Epistaxis (principal); Z85.3 Personal history of malignant neoplasm of breast; Z85.72 Personal history of non-Hodgkin lymphomas; I10 Essential (primary) hypertension
CPT/HCPCS: 30905; 80053; 85025; 96361; 96374; 99284; J2060; J7030

== ENCOUNTER 2023-07-02 18:12 | Emergency (ER) | payer MEDICARE, SELFPAY ==
[2023-07-02 18:16] VITALS: BP 173/105; PULSE 116; RESP 25; TEMP 37.1; O2SAT 95
--- NOTE | 2023-07-02 18:27 | W.ED.GENADLT ---
HPI - General Adult General: Chief complaint: General Medical Stated complaint: Not eating Since Packed her Nose Time Seen by Provider: 07/02/23 18:26 History of Present Illness: 77-year-old female comes in today for complaints of discomfort to the nose. Patient had a packing placed on the due to a epistaxis. Patient's bleeding has been controlled but patient reports discomfort making her feel sick at her stomach. Patient appears mildly pale. Patient appears mildly unwell but not toxic. Patient appears in mild to moderate pain. Review of Systems General: Reports: 10 or more systems reviewed and unremarkable except in HPI and below ENMT: Reports: epistaxis and sinus pain PFS ED PFSH: Medical History (Updated 07/02/23 @ 19:20 by PIPPA Killian) Epistaxis Hx of deep venous thrombosis left leg Lower extremity deep venous thrombosis Hypothyroidism Breast cancer Diffuse large B cell lymphoma Peripheral neuropathy Osteoarthritis Breast cancer, right Hypertension GERD (gastroesophageal reflux disease) Diverticulitis IBS (irritable bowel syndrome) Urethral caruncle Chronic cystitis Hx of vaginal bleeding Patient presents again with complaint of bleeding which she believes came from the vaginal area. This occurred last night. On exam today no actual bleeding seen anywhere. Stitch from her vault suspension was again noted today on exam. No granulation tissue was noted on exam. However, due to this intermittent reporting of bleeding, I went ahead and removed the stitch. On removal, the stitch appeared to not be attached to anything other than the vaginal wall. Patient still had a urethral caruncle noted with a small spot adjacent to it which is suspicious for possible bleeding from that area. With her being on the Xarelto, she may have bled from either the caruncle or from the stitch in the vagina. Questions were answered. Follow-up as needed. Surgical History (Updated 07/01/23 @ 17:51 by Kendrick Gomez MD) History of endoscopy 08/2022 - Dr. Blanton at [facility]. S/P lumpectomy, right breast (01/27/20) H/O excision of mass H/O colonoscopy 2013 H/O esophagogastroduodenoscopy 2019 History of laparotomy (~1996) left ovarian cystectomy Hx of hysterectomy (~04/08/14) with vaginal repair------- TVH, LSO, Uterosacral ligament suspension, Anterior vaginal repair, Perineorrhaphy, Single incision suburethral sling, Cystoscopy, Lysis of bowel adhesions. 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 Performed by Dr. Remi Musa at [facility] in [place], [place]. Surgical findings: Third degree cystocele, second to third degree uterine prolapse, adhesions of the sigmoid to the left fundal portion of the uterus and to the left ovary, left ovarian cyst present. History of surgery on right wrist (~12/2010) Hx of cholecystectomy (~02/2005) Laparoscopic. Performed by Dr. Blanton at [facility] in [place], [place]. History of bunionectomy (~2001) left H/O ovarian cystectomy (~1996) Left-- Laparotomy Hx of breast biopsy (~1993) 1993-- 1 cyst removed from left breast and 2 cysts removed from right breast. All pathologies were benign. History of tonsillectomy and adenoidectomy (~1951) Family History Grandfather Diabetes Maternal Mother Breast cancer dx at age 45 Denies family history of Colon cancer Ovarian cancer Heart disease Hypercholesteremia Anesthesia complication Bleeding disorder Hypertension Uterine cancer Thyroid disease Stroke Social History Smoking and tobacco/nicotine status: never used tobacco/nicotine Physical Exam Const: COMMON NORMALS: alert HENMT: COMMON NORMALS: normocephalic HEAD & SCALP: normocephalic MOUTH: Normal oral and palatal mucosa present THROAT: other (Postnasal drip with mild bloody streaking) Neck/C-Spine: COMMON NORMALS: full ROM Resp: COMMON NORMALS: normal respiratory effort and clear to auscultation bilaterally AUSCULTATION: clear to auscultation bilaterally Cardio: COMMON NORMALS: regular rate RATE: regular rate GI: COMMON NORMALS: Soft to palpation PALPATION: Yes Soft to palpation Back/Pelvis: COMMON NORMALS: thoracic and lumbar spine normal to inspection Extremity: COMMON NORMALS: normal to inspection Neuro: SENSORIUM/ORIENTATION: Yes alert Skin: COMMON NORMALS: turgor normal GENERAL SKIN EXAM: turgor normal Course ED course: 1834, pressure was released from balloons. Will monitor patient for 15 to 20 minutes before we fully remove the tamponade device. 1849, nasal balloon was removed patient tolerated well. No active bleeding at that time. 1924, no active bleeding. Posterior pharynx is clear with no signs of nasal drainage with blood-tinged. Vital Signs: Vital signs: Vital Signs Temperature 98.7 F 07/02/23 18:16 Pulse Rate 116 H 07/02/23 18:16 Respiratory Rate 25 H 07/02/23 18:16 Blood Pressure 173/105 07/02/23 18:16 Pulse Oximetry 95 07/02/23 18:16 Oxygen Delivery Me thod Room Air 07/02/23 18:16 MDM - General Adult Medical Decision Making 77-year-old female comes in today with discomfort to the nose making it hard for her to eat because of nausea. Patient appears mildly unwell but nontoxic. Posterior pharynx does have some mild drainage from the sinuses that have some blood-tinged to it. No active bleeding otherwise is noted. Vital signs note some mild elevation in pulse and respirations and blood pressure. Differential diagnosis includes epistaxis, rhinosinusitis, facial pain. Nasal balloon was removed. Patient tolerated fair. CBC noted today for decline in hemoglobin to 10. Patient was recommended to use Zofran as needed for nausea and follow-up with bearing ring assembler for further evaluation. No bleeding was noted on discharge. Patient was stable and discharged home. Lab Data 07/02/23 18:54 Laboratory Results WBC 5.04 10^3/uL (3.29-11.43) 07/02/23 18:54 RBC 3.13 10^6/uL (3.85-5.65) L 07/02/23 18:54 Hgb 10.00 g/dL (11.27-16.99) L 07/02/23 18:54 Hct 30.8 % (36-47) L 07/02/23 18:54 MCV 98.4 fl (85-98) H 07/02/23 18:54 MCH 31.9 pg (27-33) 07/02/23 18:54 MCHC 32.5 g/dL (30-55) 07/02/23 18:54 RDW 14.8 % (12.1-15.1) 07/02/23 18:54 Plt Count 115 10^3/cmm (157-399) L 07/02/23 18:54 MPV 10.0 fL (7.4-10.4) 07/02/23 18:54 Neut % (Auto) 75.0 % 07/02/23 18:54 Lymph % (Auto) 13.7 % 07/02/23 18:54 Stanly % (Auto) 9.7 % 07/02/23 18:54 Eos % (Auto) 0.4 % 07/02/23 18:54 Baso % (Auto) 0.2 % 07/02/23 18:54 Neut # (Auto) 3.78 10^3/uL (1.8-7.7) 07/02/23 18:54 Lymph # (Auto) 0.7 10^3/uL (0.8-4.8) L 07/02/23 18:54 Stanly # (Auto) 0.5 10^3/uL (0.2-0.9) 07/02/23 18:54 Eos # (Auto) 0.0 10^3/uL (0.0-0.8) 07/02/23 18:54 Baso # (Auto) 0.0 10^3/uL (0.0-0.1) 07/02/23 18:54 Nucleated RBC % (auto) 0 % 07/02/23 18:54 Nucleated RBCs # 0.0 /100WBC 07/02/23 18:54 No radiology studies performed this visit Discharge Plan Discharge Patient Disposition: Home Clinical Impression: Epistaxis Condition: Stable Prescriptions: New ondansetron 4 mg tablet,disintegrating 4 mg PO Q8H PRN (Reason: nausea and vomiting) Qty: 7 0RF No Action Women's 50 Plus Multivitamin 400 mcg-500 mg calcium-20 mcg tablet 1 tab PO DAILY ascorbic acid (vitamin C) 1,000 mg capsule 1 g PO BID magnesium oxide 400 mg magnesium capsule 400 mg PO DAILY cholestyramine (with sugar) 4 gram powder 2 g PO BID Qty: 368.76 5RF Rx Instructions: administer w/meal; avoid other meds within 1hr before or 4-6hr after dose levothyroxine 100 mcg tablet 100 mcg PO DAILY Qty: 90 3RF pregabalin 150 mg capsule 150 mg PO BID Qty: 60 5RF methenamine hippurate 1 gram tablet See Rx Instructions .ROUTE .COMPLEX Qty: 60 12RF Dose Instruction: TAKE ONE TABLET BY MOUTH TWICE DAILY FOR recurrent uti, take with 1000mg of vitamin C each DOSE Rx Instructions: TAKE ONE TABLET BY MOUTH TWICE DAILY FOR recurrent uti, take with 1000mg of vitamin C each DOSE hydrocortisone 2.5 % cream with perineal applicator See Rx Instructions .ROUTE .COMPLEX Qty: 30 3RF Dose Instruction: ONE application rectally TWICE DAILY NEEDED FOR HEMORRHOIDS Rx Instructions: ONE application rectally TWICE DAILY NEEDED FOR HEMORRHOIDS exemestane 25 mg tablet 25 mg PO DAILY Qty: 90 3RF Rx Instructions: must administer after a meal hydrocodone-acetaminophen 7.5-325 mg tablet 1 tab PO BID PRN (Reason: pain) 30 Days Qty: 60 0RF potassium chloride 20 mEq tablet,ER particles/crystals 20 meq PO DAILY Qty: 30 0RF ondansetron 4 mg tablet,disintegrating 4 mg PO Q6H PRN (Reason: nausea and vomiting) Qty: 20 0RF Probiotic 3 billion cell Capsule 3,000 mmu cells PO BID Rx Instructions: administer with a meal Metamucil 3.4 gram/5.4 gram Powder 1 tbsp PO DAILY Rx Instructions: mix into at least 8 oz of water or juice before administering triamcinolone acetonide 0.1 % cream 1 applic topical DAILY PRN (Reason: Skin Irritation) pantoprazole 40 mg tablet,delayed release (DR/EC) 40 mg PO DAILY diclofenac sodium 75 mg tablet,delayed release (DR/EC) 75 mg PO DAILY PRN (Reason: Pain) metoprolol tartrate 25 mg tablet 25 mg PO BID Xarelto 20 mg tablet 20 mg PO DAILY Discharge Orders: Discharge ED (Routine); Ordered 07/02/23 Ordered By: Kenny Gil Referrals: Torin Sandhu MD [Primary Care Provider] - Discharge Diet: Usual diet Discharge Activity: Increase activity as tolerated Patient Instructions: Nosebleed (ED) Activity Restrictions/Additional Instructions: Home and rest. Activity as tolerated. Use Zofran as needed for nausea. Continue with routine medications as directed. Light diet. Follow-up with ENT for further evaluation and treatment. Coding Level of Care Code ED Info Print Press Operator for Coleen Fregoso
[2023-07-02 19:11] LABS: Basophils % 0.2 %; Eosinophils % 0.4 %; Hematocrit 30.8 % (36-47); Lymphocytes # 0.7 10^3/uL (0.8-4.8); Lymphocytes % 13.7 %; Mean Corpuscular HGB Conc 32.5 g/dL (30-55); Mean Corpuscular Hemoglobin 31.9 pg (27-33); Mean Corpuscular Volume 98.4 fl (85-98); Monocytes # 0.5 10^3/uL (0.2-0.9); Monocytes % 9.7 %; Neutrophils # 3.78 10^3/uL (1.8-7.7); Nucleated Red Blood Cells % 0 %; Platelet Count 115 10^3/cmm (157-399); Red Blood Count 3.13 10^6/uL (3.85-5.65); Red Cell Distribution Width 14.8 % (12.1-15.1); White Blood Count 5.04 10^3/uL (3.29-11.43)
[2023-07-02] MEDS: ondansetron 4 MG Tablet PO (19:42)
[2023-07-02 19:48] VITALS: BP 173/105; PULSE 116; RESP 25; TEMP 37.1; O2SAT 95
--- NOTE | 2023-07-04 07:42 | DCPLANNER ---
message sent to ENT to f/u ER visit
== END 2023-07-02 19:49 | disposition home or self-care (01) ==
PROVIDERS: Emergency Provider Nurse Practitioner Family; PCP Family Medicine
DX: R04.0 Epistaxis (principal); I10 Essential (primary) hypertension; Z85.3 Personal history of malignant neoplasm of breast
CPT/HCPCS: 85025; 99283; Q0162

== ENCOUNTER 2023-07-03 18:10 | Emergency (ER) | payer MEDICARE, SELFPAY ==
[2023-07-03 18:21] VITALS: BP 114/79; PULSE 118; RESP 18; TEMP 37; O2SAT 95; BMI 33.1
--- NOTE | 2023-07-03 18:36 | XRR_ITS ---
PROCEDURE INFORMATION: Exam: XR Chest Exam date and time: 07/03/2023 6:46 PM Age: 77 years old Clinical indication: Other: Disoriented; Additional info: AMS TECHNIQUE: Imaging protocol: Radiologic exam of the chest. Views: 1 view. COMPARISON: CT chest abdpel w/*[id number] 06/10/2019 9:41 AM FINDINGS: Lungs: Question retrocardiac atelectasis/infiltrate. Right lung is clear. Pleural spaces: No pleural effusion. No pneumothorax. Heart/Mediastinum: Unremarkable. No cardiomegaly. Bones/joints: No acute bony abnormality. XR/XR chest 1V portable [id number] IMPRESSION: Question retrocardiac atelectasis/infiltrate. Recommend clinical correlation and follow up imaging as clinically warranted.
--- NOTE | 2023-07-03 18:43 | CTR_ITS ---
PROCEDURE INFORMATION: Exam: CT Head Without Contrast Exam date and time: 07/03/2023 6:52 PM Age: 77 years old Clinical indication: Altered mental status/memory loss; Additional info: AMS TECHNIQUE: Imaging protocol: Computed tomography of the head without contrast. Radiation optimization: All CT scans at this facility use at least one of these dose optimization techniques: automated exposure control; mA and/or kV adjustment per patient size (includes targeted exams where dose is matched to clinical indication); or iterative reconstruction. COMPARISON: CT sinus wo con* [id number] 09/14/2017 2:26 PM RADIATION DOSE METRICS: Total DLP (mGy-cm): 1159 FINDINGS: Brain: No acute confluent lobar ischemic infarct. No acute intracranial hemorrhage. Mild nonspecific white matter low attenuation which may be related to microvascular ischemic changes. Cerebral ventricles: The ventricles and sulci are normal in size and shape for the patient's stated age. Paranasal sinuses: Fluid level in the left maxillary sinus. Debris within the left sphenoid sinus. Mastoid air cells: Visualized mastoid air cells are well aerated. Bones/joints: No acute calvarial fracture. Soft tissues: Visualized soft tissues are unremarkable. CT/CT head wo con* [id number] IMPRESSION: No acute intracranial abnormality. If symptoms persist, consider further evaluation with MRI, if MRI is clinically safe to obtain.
--- NOTE | 2023-07-03 18:46 | ED_ITS ---
HPI - Altered Mental Status 2 General: Chief Complaint: Altered Mental Status Stated Complaint: Disoriented Time Seen by Provider: 07/03/23 18:36 History of Present Illness: Patient is brought in by her with complaints of altered mental status, confusion, poor memory being off balance and not wanting the right. This is all been started about Monday when she had a Rhino Rocket placed for nosebleed. She had a Rhino Rocket yesterday and did not resolve the symptoms. Patient is on Xarelto as a blood thinner. Review of Systems 2 General: Reports: 10 or more systems reviewed and unremarkable except in HPI and below PFSH ED 2 PFSH: Medical History Epistaxis Hx of deep venous thrombosis left leg Lower extremity deep venous thrombosis Hypothyroidism Breast cancer Diffuse large B cell lymphoma Peripheral neuropathy Osteoarthritis Breast cancer, right Hypertension GERD (gastroesophageal reflux disease) Diverticulitis IBS (irritable bowel syndrome) Urethral caruncle Chronic cystitis Hx of vaginal bleeding Patient presents again with complaint of bleeding which she believes came from the vaginal area. This occurred last night. On exam today no actual bleeding seen anywhere. Stitch from her vault suspension was again noted today on exam. No granulation tissue was noted on exam. However, due to this intermittent reporting of bleeding, I went ahead and removed the stitch. On removal, the stitch appeared to not be attached to anything other than the vaginal wall. Patient still had a urethral caruncle noted with a small spot adjacent to it which is suspicious for possible bleeding from that area. With her being on the Xarelto, she may have bled from either the caruncle or from the stitch in the vagina. Questions were answered. Follow-up as needed. Surgical History History of endoscopy 08/2022 - Dr. Blanton at [facility]. S/P lumpectomy, right breast (01/27/20) H/O excision of mass H/O colonoscopy 2013 H/O esophagogastroduodenoscopy 2019 History of laparotomy (~1996) left ovarian cystectomy Hx of hysterectomy (~04/08/14) with vaginal repair------- TVH, LSO, Uterosacral ligament suspension, Anterior vaginal repair, Perineorrhaphy, Single incision suburethral sling, Cystoscopy, Lysis of bowel adhesions. 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 Performed by Dr. Remi Musa at [facility] in [place], [place]. Surgical findings: Third degree cystocele, second to third degree uterine prolapse, adhesions of the sigmoid to the left fundal portion of the uterus and to the left ovary, left ovarian cyst present. History of surgery on right wrist (~12/2010) Hx of cholecystectomy (~02/2005) Laparoscopic. Performed by Dr. Blanton at [facility] in [place], [place]. History of bunionectomy (~2001) left H/O ovarian cystectomy (~1996) Left-- Laparotomy Hx of breast biopsy (~1993) 1993-- 1 cyst removed from left breast and 2 cysts removed from right breast. All pathologies were benign. History of tonsillectomy and adenoidectomy (~1951) Family History Grandfather Diabetes Maternal Mother Breast cancer dx at age 45 Denies family history of Colon cancer Ovarian cancer Heart disease Hypercholesteremia Anesthesia complication Bleeding disorder Hypertension Uterine cancer Thyroid disease Stroke Social History Smoking and tobacco/nicotine status: never used tobacco/nicotine Physical Exam 2 Const: COMMON NORMALS: no acute distress, average body habitus, patient oriented x3, no limitations, healthy appearing, alert and well nourished HENMT: COMMON NORMALS: normocephalic, atraumatic, hearing grossly normal bilaterally, external ears normal, Normal external nose present, moist oral mucous membranes and oropharynx normal HEAD & SCALP: normocephalic and atraumatic NOSE: Normal external nose present EXTERNAL EAR: Yes external ears normal Eye: COMMON NORMALS: Equal, round and reactive pupils present, EOMs intact bilaterally, conjunctivae normal and no scleral icterus CONJUNCTIVA: Yes conjunctivae normal PUPIL: Yes Equal, round and reactive pupils present Neck/C-Spine: COMMON NORMALS: full ROM, no lymphadenopathy, supple, no meningeal signs, no JVD and Thyroid normal THYROID: Thyroid normal Chest: COMMONS NORMALS: normal inspection of the chest and normal palpation of entire chest wall Resp: COMMON NORMALS: normal respiratory effort, No retractions, No use of accessory muscles and clear to auscultation bilaterally AUSCULTATION: clear to auscultation bilaterally Cardio: COMMON NORMALS: no JVD, regular rate, regular rhythm, S1 normal heart sound present, S2 normal heart sound present, No gallops present (Cardio), No clicks present (Cardio), No murmurs present (Cardio) and No rub (Cardio) R ATE: regular rate RHYTHM: regular rhythm HEART SOUNDS: S1 normal heart sound present and S2 normal heart sound present GI: COMMON NORMALS: Normal to inspection, nondistended, normoactive bowel sounds present, Soft to palpation, non-tender, No hepatosplenomegaly present and no masses PALPATION: Yes Soft to palpation and Yes No hepatosplenomegaly present Neuro: COMMON NORMALS: patient oriented x3 SENSORIUM/ORIENTATION: Yes alert MENINGEAL SIGNS: Yes no meningeal signs Course 2 Vital Signs: Vital signs: Vital Signs Temperature 98.6 F 07/03/23 18:21 Pulse Rate 96 07/03/23 20:51 Respiratory Rate 16 07/03/23 20:51 Blood Pressure 175/114 07/03/23 20:51 Pulse Oximetry 96 07/03/23 20:51 Oxygen Delivery Me thod Room Air 07/03/23 18:21 MDM - Altered Mental Status Medical Decision Making The exam was performed lab work was obtained which is essentially unremarkable except for positive for urinary tract infection. Patient be placed on an antibiotic and discharged home. Medical Records I reviewed the patient's medical records. Lab Data I reviewed the patient's lab results. 07/03/23 18:45 07/03/23 18:45 Radiology Impressions Chest X-Ray 07/03/23 18:36 IMPRESSION: Question retrocardiac atelectasis/infiltrate. Recommend clinical correlation and follow up imaging as clinically warranted. Head CT 07/03/23 18:43 IMPRESSION: No acute intracranial abnormality. If symptoms persist, consider further evaluation with MRI, if MRI is clinically safe to obtain. Laboratory Results WBC 5.49 10^3/uL (3.29-11.43) 07/03/23 18:45 RBC 3.29 10^6/uL (3.85-5.65) L 07/03/23 18:45 Hgb 10.60 g/dL (11.27-16.99) L 07/03/23 18:45 Hct 32.1 % (36-47) L 07/03/23 18:45 MCV 97.6 fl (85-98) 07/03/23 18:45 MCH 32.2 pg (27-33) 07/03/23 18:45 MCHC 33.0 g/dL (30-55) 07/03/23 18:45 RDW 14.7 % (12.1-15.1) 07/03/23 18:45 Plt Count 141 10^3/cmm (157-399) L 07/03/23 18:45 MPV 10.3 fL (7.4-10.4) 07/03/23 18:45 Neut % (Auto) 73.2 % 07/03/23 18:45 Lymph % (Auto) 14.6 % 07/03/23 18:45 [place] % (Auto) 9.8 % 07/03/23 18:45 Eos % (Auto) 0.9 % 07/03/23 18:45 Baso % (Auto) 0.4 % 07/03/23 18:45 Neut # (Auto) 4.02 10^3/uL (1.8-7.7) 07/03/23 18:45 Lymph # (Auto) 0.8 10^3/uL (0.8-4.8) 07/03/23 18:45 [place] # (Auto) 0.5 10^3/uL (0.2-0.9) 07/03/23 18:45 Eos # (Auto) 0.1 10^3/uL (0.0-0.8) 07/03/23 18:45 Baso # (Auto) 0.0 10^3/uL (0.0-0.1) 07/03/23 18:45 Nucleated RBC % (auto) 0 % 07/03/23 18:45 Nucleated RBCs # 0.0 /100WBC 07/03/23 18:45 PT 16.00 SECONDS (12.1-14.9) H 07/03/23 18:45 INR 1.24 (0.8-1.2) H 07/03/23 18:45 Sodium 143 mmol/L (136-145) 07/03/23 18:45 Potassium 3.4 mmol/L (3.5-5.1) L 07/03/23 18:45 Chloride 109 mmol/L (98-107) H 07/03/23 18:45 Carbon Dioxide 20 mmol/L (22-29) L 07/03/23 18:45 Anion Gap 17.4 (5-19) 07/03/23 18:45 BUN 13 mg/dL (8-23) 07/03/23 18:45 Creatinine 1.0 mg/dL (0.5-0.9) H 07/03/23 18:45 GFR Calculation Not Reportable 07/03/23 18:45 Glucose 122 mg/dL (65-115) H 07/03/23 18:45 Calculated Osmolality 297 mOsm/kg (285-295) H 07/03/23 18:45 Calcium 8.1 mg/dL (8.5-10.5) L 07/03/23 18:45 Magnesium 1.9 mg/dL (1.7-2.3) 07/03/23 18:45 Total Bilirubin 0.6 mg/dL (0.15-1.2) 07/03/23 18:45 AST 30 U/L (0-32) 07/03/23 18:45 ALT 22 U/L (0-33) 07/03/23 18:45 Alkaline Phosphatase 94 U/L (35-105) 07/03/23 18:45 Troponin T Baseline 20 ng/L (0-10) H 07/03/23 18:45 Troponin T 120 Minute 19.22 ng/L (0-10) H 07/03/23 20:36 Delta Troponin T -0.78 ABS# (0-10) L 07/03/23 20:36 Total Protein 5.6 g/dL (6.6-8.7) L 07/03/23 18:45 Albumin 3.6 g/dL (3.5-5.2) 07/03/23 18:45 Globulin 2.0 g/dL (1.3-4.6) 07/03/23 18:45 Procalcitonin 0.12 ng/mL (0-0.5) 07/03/23 18:45 Urine Color Yellow (Yellow) 07/03/23 19:20 Urine Appearance Cloudy (CLEAR) A 07/03/23 19:20 Urine pH 5 (5-7) 07/03/23 19:20 Ur Specific [place] 1.015 (1.005-1.030) 07/03/23 19:20 Urine Protein 1+ (Negative) H 07/03/23 19:20 Urine Glucose (UA) Norm (Normal) 07/03/23 19:20 Urine Ketones 1+ (Negative) H 07/03/23 19:20 Urine Blood 3+ (Negative) H 07/03/23 19:20 Urine Nitrate Negative (Negative) 07/03/23 19:20 Urine Bilirubin Neg (Negative) 07/03/23 19:20 Urine Urobilinogen Norm mg/dL (Negative) 07/03/23 19:20 Ur Leukocyte Esterase 2+ (Negative) H 07/03/23 19:20 Urine RBC 40-50 /hpf (0-2) H 07/03/23 19:20 Urine WBC Too numerous to cnt /hpf (0-5) H 07/03/23 19:20 Ur Squamous Epith Cells 0-4 /hpf (0-5) H 07/03/23 19:20 Amorphous Sediment Not Reportable 07/03/23 19:20 Urine Bacteria 3+ /hpf (NONE) H 07/03/23 19:20 All radiology interpretation(s) finalized by discharge Discharge Plan Discharge Patient Disposition: Home Clinical Impression: Altered mental status Qualifiers: Altered mental status type: disorientation Qualified Code(s): R41.0 - Disorientation, unspecified Urinary tract infection Qualifiers: Urinary tract infection type: acute cystitis Hematuria presence: with hematuria Qualified Code(s): N30.01 - Acute cystitis with hematuria Condition: Stable Prescriptions: New ciprofloxacin HCl 500 mg tablet 500 mg PO Q12H Qty: 20 0RF No Action Women's 50 Plus Multivitamin 400 mcg-500 mg calcium-20 mcg tablet 1 tab PO DAILY ascorbic acid (vitamin C) 1,000 mg capsule 1 g PO BID magnesium oxide 400 mg magnesium capsule 400 mg PO DAILY cholestyramine (with sugar) 4 gram powder 2 g PO BID Qty: 368.76 5RF Rx Instructions: administer w/meal; avoid other meds within 1hr before or 4-6hr after dose levothyroxine 100 mcg tablet 100 mcg PO DAILY Qty: 90 3RF pregabalin 150 mg capsule 150 mg PO BID Qty: 60 5RF methenamine hippurate 1 gram tablet See Rx Instructions .ROUTE .COMPLEX Qty: 60 12RF Dose Instruction: TAKE ONE TABLET BY MOUTH TWICE DAILY FOR recurrent uti, take with 1000mg of vitamin C each DOSE Rx Instructions: TAKE ONE TABLET BY MOUTH TWICE DAILY FOR recurrent uti, take with 1000mg of vitamin C each DOSE hydrocortisone 2.5 % cream with perineal applicator See Rx Instructions .ROUTE .COMPLEX Qty: 30 3RF Dose Instruction: ONE application rectally TWICE DAILY NEEDED FOR HEMORRHOIDS Rx Instructions: ONE application rectally TWICE DAILY NEEDED FOR HEMORRHOIDS exemestane 25 mg tablet 25 mg PO DAILY Qty: 90 3RF Rx Instructions: must administer after a meal hydrocodone-acetaminophen 7.5-325 mg tablet 1 tab PO BID PRN (Reason: pain) 30 Days Qty: 60 0RF potassium chloride 20 mEq tablet,ER particles/crystals 20 meq PO DAILY Qty: 30 0RF ondansetron 4 mg tablet,disintegrating 4 mg PO Q8H PRN (Reason: nausea and vomiting) Qty: 7 0RF ondansetron 4 mg tablet,disintegrating 4 mg PO Q6H PRN (Reason: nausea and vomiting) Qty: 20 0RF Probiotic 3 billion cell Capsule 3,000 mmu cells PO BID Rx Instructions: administer with a meal Metamucil 3.4 gram/5.4 gram Powder 1 tbsp PO DAILY Rx Instructions: mix into at least 8 oz of water or juice before administering triamcinolone acetonide 0.1 % cream 1 applic topical DAILY PRN (Reason: Skin Irritation) pantoprazole 40 mg tablet,delayed release (DR/EC) 40 mg PO DAILY diclofenac sodium 75 mg tablet,delayed release (DR/EC) 75 mg PO DAILY PRN (Reason: Pain) metoprolol tartrate 25 mg tablet 25 mg PO BID Xarelto 20 mg tablet 20 mg PO DAILY Discharge Orders: Discharge ED (Routine); Ordered 07/03/23 Ordered By: Mayo Waters Referrals: Torin Sandhu MD [Primary Care Provider] - 1 week Patient Instructions: Altered Mental Status (ED), Urinary Tract Infection - Women Activity Restrictions/Additional Instructions: Please take all your antibiotics as directed. Thank you for choosing [facility] for your healthcare needs today. Please realize that you were seen in the emergency department and that we are providing you with an emergency medical screening exam and this may not be a complete and all exclusive of all testing and/or medical workup we may need to determine your element or severity of your illness. It is very important that you follow-up as instructed with your primary care provider or specialist for the additional evaluation and to discuss your medical treatment plan. You may return to the emergency department should you have concerns or if your condition changes or worsens in any way. Coding Level of Care Code ED [employer] Developer for Coleen Fregoso
[2023-07-03 18:55] LABS: Basophils % 0.4 %; Eosinophils # 0.1 10^3/uL (0.0-0.8); Eosinophils % 0.9 %; Hematocrit 32.1 % (36-47); Lymphocytes # 0.8 10^3/uL (0.8-4.8); Lymphocytes % 14.6 %; Mean Corpuscular Hemoglobin 32.2 pg (27-33); Mean Corpuscular Volume 97.6 fl (85-98); Mean Platelet Volume 10.3 fL (7.4-10.4); Monocytes # 0.5 10^3/uL (0.2-0.9); Monocytes % 9.8 %; Neutrophils # 4.02 10^3/uL (1.8-7.7); Neutrophils % 73.2 %; Nucleated Red Blood Cells % 0 %; Platelet Count 141 10^3/cmm (157-399); Red Blood Count 3.29 10^6/uL (3.85-5.65); Red Cell Distribution Width 14.7 % (12.1-15.1); White Blood Count 5.49 10^3/uL (3.29-11.43)
--- NOTE | 2023-07-03 18:55 | ECG_ITS ---
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 Measurements Intervals [place] Rate: 99 P: 44 OR: 136 QRS: 8 QRSD: 93 T: 25 QT: 333 QTc: 428 Interpretive Statements SINUS RHYTHM NONSPECIFIC T-WAVE ABNORMALITY Compared to ECG 06/18/2018 21:02:21 T-wave abnormality now present Electronically Signed On 07-03-2023 22:51:58 CDT by Peral Carty M.D. [email or web address] [email or web address] choice medical center of smith countyNCR Tehchnosolutionsmedina hospitalCircleBack Lending/store/[id number]
[2023-07-03 19:07] LABS: INR 1.24 (0.8-1.2)
[2023-07-03 19:16] LABS: Troponin(5th) Baseline 20 ng/L (0-10)
[2023-07-03 19:18] LABS: Alanine Aminotransferase 22 U/L (0-33); Albumin Level 3.6 g/dL (3.5-5.2); Alkaline Phosphatase 94 U/L (35-105); Anion Gap 17.4 (5-19); Aspartate Amino Transferase 30 U/L (0-32); Blood Urea Nitrogen 13 mg/dL (8-23); Calcium 8.1 mg/dL (8.5-10.5); Carbon Dioxide 20 mmol/L (22-29); Chloride 109 mmol/L (98-107); Creatinine Clr Calc Pharmacy 52.2901; Glucose 122 mg/dL (65-115); Magnesium 1.9 mg/dL (1.7-2.3); Osmolality Calculated 297 mOsm/kg (285-295); Potassium 3.4 mmol/L (3.5-5.1); Sodium 143 mmol/L (136-145); Total Bilirubin 0.6 mg/dL (0.15-1.2); Total Protein 5.6 g/dL (6.6-8.7)
[2023-07-03 19:30] VITALS: BP 145/77; PULSE 100; RESP 16; O2SAT 98
[2023-07-03 19:40] LABS: Specific Gravity, Urine 1.015 (1.005-1.030); Urine Appearance Cloudy (CLEAR); Urine Color Yellow (Yellow); pH Urine 5 (5-7)
[2023-07-03 19:40] LABS: Procalcitonin 0.12 ng/mL (0-0.5)
[2023-07-03 19:41] LABS: Add Urine Microscopic? YES; Bacteria Urine 3+ /hpf; Bilirubin Urine Neg (Negative); Blood Urine 3+ (Negative); Glucose Urine UA Norm (Normal); Ketones Urine 1+ (Negative); Leukocyte Esterase Urine 2+ (Negative); Nitrate Urine Negative (Negative); Protein Urine 1+ (Negative); RBC Urine 40-50 /hpf (0-2); Squamous Epithelial Cell Urine 0-4 /hpf (0-5); Urobilinogen Urine Norm (Negative); WBC Urine TOO NUMEROUS TO CNT /hpf (0-5)
[2023-07-03 19:42] LABS: Add Urine Culture? Yes
[2023-07-03] MEDS: ciprofloxacin 500 mg Tablet PO (19:54)
[2023-07-03] MEDS: sodium chloride 0.9% 1,000 ML 999 ML IV (19:54)
--- NOTE | 2023-07-03 20:43 | ECG_ITS ---
[facility] Test Date: 2023-07-03 Pat Name: Lexy Chawla Department: Room: Gender: Female Wilton Weaver: : 1945 Requested By: Mayo Waters Order Number: [id number] Zoya MD: Pearl Carty M.D. Measurements Intervals [place] Rate: 100 P: 56 MT: 145 QRS: 28 QRSD: 92 T: 9 QT: 299 QTc: 386 Interpretive Statements SINUS TACHYCARDIA WITH OCCASIONAL VENTRICULAR PREMATURE COMPLEXES INDETERMINATE AXIS LOW QRS VOLTAGE IN PRECORDIAL LEADS [QRS DEFLECTION < 1.0 mV IN CHEST LEADS] NONSPECIFIC T-WAVE ABNORMALITY ABNORMAL RHYTHM ECG Compared to ECG 07/03/2023 18:55:48 Ventricular premature complex(es) now present Indeterminate axis now present Low QRS voltage now present Sinus rhythm no longer present T-wave abnormality still present Electronically Signed On 07-03-2023 22:54:46 CDT by Pearl Carty M.D. [id number]
[2023-07-03 20:51] VITALS: BP 175/114; PULSE 96; RESP 16; O2SAT 96
[2023-07-03 21:05] LABS: Troponin 5 2HR 19.22 ng/L (0-10)
[2023-07-03 21:11] LABS: Troponin 5 2HR Delta -0.78 ABS# (0-10)
[2023-07-03 21:42] VITALS: BP 175/114; PULSE 96; RESP 16; TEMP 37; O2SAT 96
== END 2023-07-03 21:45 | disposition home or self-care (01) ==
PROVIDERS: Emergency Provider Emergency Medicine; PCP Family Medicine
DX: R41.0 Disorientation, unspecified (principal); N30.01 Acute cystitis with hematuria; Z85.3 Personal history of malignant neoplasm of breast; Z85.72 Personal history of non-Hodgkin lymphomas; I10 Essential (primary) hypertension
CPT/HCPCS: 70450; 71045; 80053; 81001; 83735; 84145; 84484; 85025; 85610; 87077; 87086; 87186; 93005; 99285; J7030

== ENCOUNTER → 2023-07-17 13:56 | Outpatient (BNVA) | payer MEDICARE, SELFPAY | PROVIDERS: PCP Family Medicine; Visit Provider Family Medicine | DX: Z86.39 Personal history of other endocrine, nutritional and metabolic disease (principal); I10 Essential (primary) hypertension; R04.0 Epistaxis; Z86.718 Personal history of other venous thrombosis and embolism; N30.20 Other chronic cystitis without hematuria; C50.911 Malignant neoplasm of unspecified site of right female breast; M15.9 Polyosteoarthritis, unspecified; K58.0 Irritable bowel syndrome with diarrhea; F32.9 Major depressive disorder, single episode, unspecified | CPT/HCPCS: 80053; 83036; 84443; 85025 ==

== ENCOUNTER → 2023-08-21 15:31 | Outpatient (BNVA) | payer MEDICARE, SELFPAY | PROVIDERS: PCP Family Medicine; Visit Provider Family Medicine | DX: I10 Essential (primary) hypertension (principal) | CPT/HCPCS: 80048 ==

== ENCOUNTER 2023-09-01 18:30 | Outpatient (CLI) | payer MEDICARE, SELFPAY ==
[2023-09-01 19:52] LABS: C.Diff PCR (Lab) NEGATIVE (Negative)
== END 2023-09-01 18:31 | disposition home or self-care (01) ==
LOC: LAB 18:32
PROVIDERS: PCP Family Medicine; Visit Provider Internal Medicine Medical Oncology
DX: R19.7 Diarrhea, unspecified (principal)
CPT/HCPCS: 87493

== ENCOUNTER 2023-09-04 13:05 | Inpatient (IN) | payer MEDICARE, SELFPAY ==
[2023-09-04 13:16] VITALS: BP 86/58; PULSE 131; RESP 18; TEMP 36.9; O2SAT 97
--- NOTE | 2023-09-04 13:21 | ECG_ITS ---
[facility] Test Date: 2023-09-04 Pat Name: Lexy Chawla Department: Room: Gender: Female Svp Digital Ad Sales: : 1945 Requested By: Lee Aguilar Order Number: [id number] Zoya MD: Pearl Carty M.D. Measurements Intervals [place] Rate: 131 P: 63 [place]: 125 QRS: 25 QRSD: 86 T: 54 QT: 380 QTc: 563 Interpretive Statements SINUS TACHYCARDIA INDETERMINATE AXIS POSSIBLE ANTERIOR MYOCARDIAL INFARCTION , PROBABLY OLD [30 ms Q WAVE IN V3/V4, OR R < 0.2 mV IN V4] ABNORMAL RHYTHM ECG Compared to ECG 07/03/2023 20:43:52 Myocardial infarct finding now present Ventricular premature complex(es) no longer present T-wave abnormality no longer present Electronically Signed On 09-05-2023 21:50:42 CDT by Pearl Carty M.D. [email or web address] [id number] f
[2023-09-04] MEDS: ondansetron 2 mg/ML SDV 2 mL 8 MG IVP (14:09)
[2023-09-04] MEDS: sodium chloride 0.9% 1,000 ML 999 ML IV ×2 (14:09→14:10)
[2023-09-04 14:14] LABS: Basophils % 0.1 %; Eosinophils % 0.4 %; Hematocrit 36.3 % (36-47); Lymphocytes # 1.5 10^3/uL (0.8-4.8); Lymphocytes % 14.7 %; Mean Corpuscular HGB Conc 33.1 g/dL (30-55); Mean Corpuscular Hemoglobin 32.4 pg (27-33); Mean Corpuscular Volume 98.1 fl (85-98); Mean Platelet Volume 10.7 fL (7.4-10.4); Monocytes # 0.8 10^3/uL (0.2-0.9); Monocytes % 8.2 %; Neutrophils # 7.77 10^3/uL (1.8-7.7); Neutrophils % 76.3 %; Nucleated Red Blood Cells % 0 %; Platelet Count 227 10^3/cmm (157-399); Red Cell Distribution Width 14.5 % (12.1-15.1); White Blood Count 10.18 10^3/uL (3.29-11.43)
[2023-09-04 14:38] LABS: Alanine Aminotransferase 11 U/L (0-33); Albumin Level 3.2 g/dL (3.5-5.2); Alkaline Phosphatase 88 U/L (35-105); Aspartate Amino Transferase 17 U/L (0-32); Blood Urea Nitrogen 51 mg/dL (8-23); C Reactive Protein 186.2 mg/L (0.0-4.9); Calcium 8.5 mg/dL (8.5-10.5); Carbon Dioxide 16 mmol/L (22-29); Chloride 104 mmol/L (98-107); Creatinine Clr Calc Pharmacy 17.8174; Globulin 2.7 g/dL (1.3-4.6); Glucose 96 mg/dL (65-115); Osmolality Calculated 292 mOsm/kg (285-295); Sodium 134 mmol/L (136-145); Total Bilirubin 0.7 mg/dL (0.15-1.2); Total Protein 5.9 g/dL (6.6-8.7)
[2023-09-04 14:39] LABS: Anion Gap 17.2 (5-19); Lactic Sepsis W/Reflex 1.7 mmol/L (0.5-2.2); Potassium 3.2 mmol/L (3.5-5.1)
--- NOTE | 2023-09-04 14:58 | CTR_ITS ---
PROCEDURE INFORMATION: Exam: CT Abdomen And Pelvis Without Contrast Exam date and time: 09/04/2023 3:11 PM Age: 77 years old Clinical indication: Nausea and other: Diarrhea; Prior surgery; Surgery date: 6+ months; Surgery type: Hyst, gb; Additional info: Renal failure, diarrhea TECHNIQUE: Imaging protocol: Computed tomography of the abdomen and pelvis without contrast. Radiation optimization: All CT scans at this facility use at least one of these dose optimization techniques: automated exposure control; mA and/or kV adjustment per patient size (includes targeted exams where dose is matched to clinical indication); or iterative reconstruction. COMPARISON: CT abdomen pelvis wo/w [id number] 05/11/2022 12:41 PM RADIATION DOSE METRICS: Total DLP (mGy-cm): 588.41 FINDINGS: Lungs: Atelectasis in the bilateral lung bases without acute findings. Liver: Slightly nodular liver contour, concerning for early hepatocellular disease. Correlation with pertinent labs is recommended. Diffuse decrease in hepatic parenchymal density, consistent with fatty infiltration. 1.1 cm hypodense lesion left hepatic lobe, compatible with a known liver cyst. The liver is otherwise unremarkable. Gallbladder and biliary ducts: Prior cholecystectomy. There is no evidence of biliary ductal dilation. Pancreas: The pancreas is normal. Spleen: The spleen is normal. Adrenal glands: The adrenal glands are normal. Kidneys and ureters: Enlarging 10 cm (previously 9 cm) right renal cyst. Follow-up ultrasound recommended. The kidneys are otherwise unremarkable. There is no ureteral dilation. Stomach and bowel: Diffuse colonic diverticulosis. Circumferential wall thickening and fluid-filled cecum, ascending colon, and transverse colon with mild pericolonic vascular engorgement. No other bowel wall thickening. No bowel obstruction. Appendix: A normal appendix is identified. Intraperitoneal space: No free fluid, fluid collections, or pneumoperitoneum. Vasculature: IVC filter is in stable position as compared to prior. Note that all of the filter prongs extrude from the IVC lumen and that the filter is tilted to an angle of 15 degrees towards the left. The arterial vasculature demonstrates diffuse mild atherosclerotic calcification. No aortic aneurysms. Lymph nodes: No concerning adenopathy. Urinary bladder: The bladder is decompressed. Reproductive: There has been a hysterectomy. Bones/joints: Moderate multilevel degenerative changes of the spine, as manifested by multilevel anterior osteophytes and multilevel decrease in intervertebral disc space. Grade 1 anterolisthesis of L5 in relation to S1, degenerative in etiology. No acute skeletal abnormality or aggressive osseous lesion. Soft tissues: There is a fat-containing umbilical hernia. Left buttock calcified granulomas are benign. No acute body wall soft tissue findings. CT/CT abdomen pelvis wo con [id number] IMPRESSION: Mild colitis affecting the cecum, ascending colon, and transverse colon. COMMENTS: For patients with an IVC filter, recommend assessment for a management plan for the patient's IVC filter. If there is no established management plan, recommend referral to an interventional clinician on a nonemergent basis for evaluation.
--- NOTE | 2023-09-04 15:00 | ED_ITS ---
HPI - Weakness 2 General: Chief complaint: Weakness Stated complaint: weakness, n/v Time Seen by Provider: 09/04/23 13:49 History of Present Illness: 77-year-old female with history of DVT o n Xarelto, hypothyroidism, hypertension, GERD, diverticulosis and IBS who has been having diarrhea for several weeks now. She has been seen by her primary and labs were done about a week ago and creatinine was 1.2. She has C. difficile done that was reported yesterday and was negative for C. difficile. She talked to her doctor today who told her to come to the emergency room for evaluation. She has no focal abdominal pain. She has had vomiting a couple of times. She says she is lost 50 pounds in a month. No known fevers. No altered mental status. No focal motor deficits. She says at times she will have some pain in her left lower quadrant but she has no pain right now. Review of Systems 2 Narrative: Constitutional symptoms: Negative except as documented in HPI. Skin symptoms: Negative except as documented in HPI. Eye symptoms: Negative except as documented in HPI. ENMT symptoms: Negative except as documented in HPI. Respiratory symptoms: Negative except as documented in HPI. Cardiovascular symptoms: Negative except as documented in HPI. Gastrointestinal symptoms: Negative except as documented in HPI. Genitourinary symptoms: Negative except as documented in HPI. Musculoskeletal symptoms: Negative except as documented in HPI. Neurologic symptoms: Negative except as documented in HPI. Psychiatric symptoms: Negative except as documented in HPI. Endocrine symptoms: Negative except as documented in HPI. [facility] ED 2 PFS: Medical History (Updated 09/04/23 @ 16:42 by Rafaela Parker MD) Depression Epistaxis Hx of deep venous thrombosis left leg Lower extremity deep venous thrombosis Hypothyroidism Breast cancer Diffuse large B cell lymphoma Peripheral neuropathy Osteoarthritis Breast cancer, right Hypertension GERD (gastroesophageal reflux disease) Diverticulitis IBS (irritable bowel syndrome) Urethral caruncle Chronic cystitis Hx of vaginal bleeding Patient presents again with complaint of bleeding which she believes came from the vaginal area. This occurred last night. On exam today no actual bleeding seen anywhere. Stitch from her vault suspension was again noted today on exam. No granulation tissue was noted on exam. However, due to this intermittent reporting of bleeding, I went ahead and removed the stitch. On removal, the stitch appeared to not be attached to anything other than the vaginal wall. Patient still had a urethral caruncle noted with a small spot adjacent to it which is suspicious for possible bleeding from that area. With her being on the Xarelto, she may have bled from either the caruncle or from the stitch in the vagina. Questions were answered. Follow-up as needed. Surgical History History of endoscopy 08/2022 - Dr. Blanton at [facility]. S/P lumpectomy, right breast (01/27/20) H/O excision of mass H/O colonoscopy 2013 H/O esophagogastroduodenoscopy 2018 History of laparotomy (~1996) left ovarian cystectomy Hx of hysterectomy (~04/08/14) with vaginal repair------- TVH, LSO, Uterosacral ligament suspension, Anterior vaginal repair, Perineorrhaphy, Single incision suburethral sling, Cystoscopy, Lysis of bowel adhesions. 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 Performed by Dr. eRmi Musa at [facility] in [place], [place]. Surgical findings: Third degree cystocele, second to third degree uterine prolapse, adhesions of the sigmoid to the left fundal portion of the uterus and to the left ovary, left ovarian cyst present. History of surgery on right wrist (~12/2010) Hx of cholecystectomy (~02/2005) Laparoscopic. Performed by Dr. Blanton at [facility] in [place], [place]. History of bunionectomy (~2001) left H/O ovarian cystectomy (~1996) Left-- Laparotomy Hx of breast biopsy (~1993) 1993-- 1 cyst removed from left breast and 2 cysts removed from right breast. All pathologies were benign. History of tonsillectomy and adenoidectomy (~195) Family History Grandfather Diabetes Maternal Mother Breast cancer dx at age 45 Denies family history of Colon cancer Ovarian cancer Heart disease Hypercholesteremia Anesthesia complication Bleeding disorder Hypertension Uterine cancer Thyroid disease Stroke Social History Smoking and tobacco/nicotine status: never used tobacco/nicotine Physical Exam 2 Narrative: EXAM NARRATIVE: General: Alert, no acute distress. Skin: Warm, dry. Head: Normocephalic, atraumatic. Neck: Supple, trachea midline. Eye: Extraocular movements are intact. Ears, nose, mouth and throat: Very dry oral mucosa Cardiovascular: Regular, tachycardic, normal peripheral perfusion. Respiratory: Lungs are clear to auscultation, respirations are non-labored, breath sounds are equal, Symmetrical chest wall expansion. Gastrointestinal: Soft, Nontender, Non distended Musculoskeletal: Normal ROM, no deformity. Neurological: Alert and oriented, No focal neurological deficit observed. Psychiatric: Cooperative, appropriate mood & affect. Course 2 Vital Signs: Vital signs: Vital Signs Temperature 98.5 F 09/04/23 13:16 Pulse Rate 99 09/04/23 15:42 Respiratory Rate 22 H 09/04/23 15:42 Blood Pressure 115/73 09/04/23 15:42 Pulse Oximetry 99 09/04/23 15:42 Oxygen Delivery Me thod Room Air 09/04/23 15:42 MDM - Weakness Medical Decision Making Medical decision making: Differential diagnosis including but not limited to and based on the above HPI, review of systems and physical exam: In this patient with diarrhea, weight loss, weakness and hypotension and diarrhea with a negative C. difficile at most be concerned about acute renal failure from dehydration. Basic lab work was ordered. Orders placed to evaluate differential diagnosis based on the above differential, HPI and physical exam EKG: Time 1550. Rate 70. Normal sinus rhythm, No ST-T changes, no ectopy, second-degree AV block., EP Interpretation. This was reviewed and interpreted by myself the ER physician at 1555 Lab Review: Laboratory results were reviewed and interpreted by myself the emergency room physician. Patient has a white count of 10. Hemoglobin is 12. Significant change in her renal function. She has a BUN of 51 and a creatinine of 2.7. Her creatinine was 1.2 just about a week ago. Reviewing the records she had a negative C. difficile couple days ago. CT of the abdomen pelvis without contrast: Some mild colitis, otherwise no acute findings. This was reviewed and interpreted by myself the emergency room physician. I also reviewed the radiology report. I reviewed the patient's medical record. Reexamination: Patient seems to be feeling little bit better. Her heart rate has come down some. Mouth is not quite as dry as it was. She has no altered mental status. No focal motor deficits. No increased work of breathing. She Consultation: I spoke with Dr. Maharaj who agrees to admission of the patient. Assessment and plan: Diarrhea Dehydration Acute renal failure ?2 L normal saline bolus in the emergency room. -I discussed the patient with the hospitalist on-call who is admitting the patient. - Discussed findings and plan with patient. Answered any questions. - All laboratory values were reviewed and interpreted personally by myself, the ER physician - All imaging was reviewed and interpreted personally by myself, the ER physician. - Evaluation and treatment of this problem were appropriate in the emergency setting Lab Data 09/04/23 14:02 09/04/23 14:02 Radiology Impressions Abdomen/Pelvis CT 09/04/23 14:58 IMPRESSION: Mild colitis affecting the cecum, ascending colon, and transverse colon. COMMENTS: For patients with an IVC filter, recommend assessment for a management plan for the patient's IVC filter. If there is no established management plan, recommend referral to an interventional clinician on a nonemergent basis for evaluation. Laboratory Results WBC 10.18 10^3/uL (3.29-11.43) 09/04/23 14:02 RBC 3.70 10^6/uL (3.85-5.65) L 09/04/23 14:02 Hgb 12.00 g/dL (11.27-16.99) 09/04/23 14:02 Hct 36.3 % (36-47) 09/04/23 14:02 MCV 98.1 fl (85-98) H 09/04/23 14:02 MCH 32.4 pg (27-33) 09/04/23 14:02 MCHC 33.1 g/dL (30-55) 09/04/23 14:02 RDW 14.5 % (12.1-15.1) 09/04/23 14:02 Plt Count 227 10^3/cmm (157-399) 09/04/23 14:02 MPV 10.7 fL (7.4-10.4) H 09/04/23 14:02 Neut % (Auto) 76.3 % 09/04/23 14:02 Lymph % (Auto) 14.7 % 09/04/23 14:02 [place] % (Auto) 8.2 % 09/04/23 14:02 Eos % (Auto) 0.4 % 09/04/23 14:02 Baso % (Auto) 0.1 % 09/04/23 14:02 Neut # (Auto) 7.77 10^3/uL (1.8-7.7) H 09/04/23 14:02 Lymph # (Auto) 1.5 10^3/uL (0.8-4.8) 09/04/23 14:02 [place] # (Auto) 0.8 10^3/uL (0.2-0.9) 09/04/23 14:02 Eos # (Auto) 0.0 10^3/uL (0.0-0.8) 09/04/23 14:02 Baso # (Auto) 0.0 10^3/uL (0.0-0.1) 09/04/23 14:02 Nucleated RBC % (auto) 0 % 09/04/23 14:02 Nucleated RBCs # 0.0 /100WBC 09/04/23 14:02 Sodium 134 mmol/L (136-145) L 09/04/23 14:02 Potassium 3.2 mmol/L (3.5-5.1) L 09/04/23 14:02 Chloride 104 mmol/L (98-107) 09/04/23 14:02 Carbon Dioxide 16 mmol/L (22-29) L 09/04/23 14:02 Anion Gap 17.2 (5-19) 09/04/23 14:02 BUN 51 mg/dL (8-23) H 09/04/23 14:02 Creatinine 2.7 mg/dL (0.5-0.9) H 09/04/23 14:02 GFR Calculation Not Reportable 09/04/23 14:02 Glucose 96 mg/dL (65-115) 09/04/23 14:02 Calculated Osmolality 292 mOsm/kg (285-295) 09/04/23 14:02 Lactic Acid 1.7 mmol/L (0.5-2.2) 09/04/23 14:02 Calcium 8.5 mg/dL (8.5-10.5) 09/04/23 14:02 Total Bilirubin 0.7 mg/dL (0.15-1.2) 09/04/23 14:02 AST 17 U/L (0-32) 09/04/23 14:02 ALT 11 U/L (0-33) 09/04/23 14:02 Alkaline Phosphatase 88 U/L (35-105) 09/04/23 14:02 C-Reactive Protein 186.2 mg/L (0.0-4.9) H 09/04/23 14:02 Total Protein 5.9 g/dL (6.6-8.7) L 09/04/23 14:02 Albumin 3.2 g/dL (3.5-5.2) L 09/04/23 14:02 Globulin 2.7 g/dL (1.3-4.6) 09/04/23 14:02 All radiology interpretation(s) finalized by discharge Discharge Plan Discharge Patient Disposition: Admitted As Inpatient Clinical Impression: Acute renal failure, Dehydration, Diarrhea Condition: Stable Coding Level of Care Code ED It Consulting Director for Coleen Fregoso
[2023-09-04 15:42] VITALS: BP 115/73; PULSE 99; RESP 22; O2SAT 99
--- NOTE | 2023-09-04 16:37 | P.HP_ITS ---
Providers/Chief Complaint 2 Primary Care Provider: Torin Sandhu MD Chief Complaint: weakness, n/v History of Present Illness Lexy Chawla is a 77 year old female who has been dealing with abdominal pain and diarrhea for last 4 to 6 weeks, Richard, it has gotten worse last 2 weeks, she has not noticed any fever but endorsing nausea without vomiting. She has not use any antibiotics, PCP asked her to go to the ER today for worsening of symptoms. In the ER she was diagnosed with REGINALD, severe dehydration and colitis she does have cloudy urine as well consistent with UTI, Patient stating that screening colonoscopies were unremarkable She has history of breast cancer, non-Hodgkin's lymphoma which is being treated by Dr. Pablo CT scan of the pelvis did not show any malignancy in the gut She has normal anion gap acidosis with hypokalemia consistent with diarrhea Review of Systems 2 Const: Reports: chills Eyes: Denies: change in vision ENMT: Denies: throat pain Card: Denies: chest pain Resp: Denies: stridor GI: Reports: abdominal pain : Denies: flank pain Medications/Allergies Home Medications Medication Instructions Recorded Confirmed Last Taken Type jucuerpe-ewz-fvnxi ac 400 1 tab PO DAILY 04/09/19 07/17/23 06/29/23 History mcg-calcium carb 500 mg-vit K1 20 mcg tablet (Women's 50 Plus Multivitamin) ondansetron 4 mg disintegrating 4 mg PO Q6H PRN nausea and 03/28/22 07/17/23 Unknown Rx tablet vomiting #20 tabs ascorbic acid (vitamin C) 1,000 mg 1 g PO BID 05/05/22 07/17/23 06/29/23 History capsule cholestyramine (with sugar) 4 gram 2 g PO BID #368.76 grams 01/16/23 07/17/23 06/29/23 Rx oral powder magnesium oxide 400 mg PO DAILY 03/14/23 07/17/23 06/29/23 History levothyroxine 100 mcg tablet 100 mcg PO DAILY #90 tabs 03/20/23 07/17/23 06/29/23 Rx pregabalin 150 mg capsule 150 mg PO BID #60 caps 04/25/23 07/17/23 06/29/23 Rx methenamine hippurate 1 gram tablet See Rx Instructions .Route 04/27/23 07/17/23 Unknown Rx .COMPLEX #60 tabs hydrocortisone 2.5 % topical cream See Rx Instructions .Route 06/02/23 07/17/23 Unknown Rx with perineal applicator .COMPLEX #30 grams exemestane 25 mg tablet 25 mg PO DAILY #90 tabs 06/14/23 07/17/23 06/29/23 Rx hydrocodone 7.5 mg-acetaminophen 1 tab PO BID PRN pain 30 days #60 06/27/23 07/17/23 Unknown Rx 325 mg tablet tabs diclofenac sodium 75 mg 75 mg PO DAILY PRN Pain 06/30/23 07/17/23 Unknown History tablet,delayed release lactobacillus combination no.4 3 3,000 mmu cells PO BID 06/30/23 07/17/23 06/29/23 History billion cell capsule (Probiotic) metoprolol tartrate 25 mg tablet 25 mg PO BID 06/30/23 07/17/23 06/29/23 History pantoprazole 40 mg tablet,delayed 40 mg PO DAILY 06/30/23 07/17/23 06/29/23 History release psyllium husk 3.4 gram/5.4 gram 1 tbsp PO DAILY 06/30/23 07/17/23 06/29/23 History oral powder (Metamucil) triamcinolone acetonide 0.1 % 1 applic topical DAILY PRN Skin 06/30/23 07/17/23 Unknown History topical cream Irritation duloxetine 30 mg capsule,delayed 30 mg PO DAILY #30 caps 07/17/23 07/17/23 Unknown Rx release rivaroxaban 10 mg tablet 10 mg PO DAILY #90 tabs 07/17/23 07/17/23 Unknown Rx potassium chloride 10 mEq 20 meq (2 x 10 mEq) PO BID #120 08/08/23 Unknown Rx capsule,extended release caps dicyclomine 20 mg tablet 20 mg PO BID abdominal cramping 08/28/23 Unknown Rx #20 tabs ondansetron 4 mg disintegrating See Rx Instructions .Route 08/28/23 Unknown Rx tablet .COMPLEX #60 ea Allergies Allergy/AdvReac Type Severity Reaction Status Date / Time clindamycin Allergy chest pain Verified 09/04/23 13:22 Penicillins Allergy rash Verified 09/04/23 13:22 PFSH Acute 2 PFSH: Medical History Depression Epistaxis Hx of deep venous thrombosis left leg Lower extremity deep venous thrombosis Hypothyroidism Breast cancer Diffuse large B cell lymphoma Peripheral neuropathy Osteoarthritis Breast cancer, right Hypertension GERD (gastroesophageal reflux disease) Diverticulitis IBS (irritable bowel syndrome) Urethral caruncle Chronic cystitis Hx of vaginal bleeding Patient presents again with complaint of bleeding which she believes came from the vaginal area. This occurred last night. On exam today no actual bleeding seen anywhere. Stitch from her vault suspension was again noted today on exam. No granulation tissue was noted on exam. However, due to this intermittent reporting of bleeding, I went ahead and removed the stitch. On removal, the stitch appeared to not be attached to anything other than the vaginal wall. Patient still had a urethral caruncle noted with a small spot adjacent to it which is suspicious for possible bleeding from that area. With her being on the Xarelto, she may have bled from either the caruncle or from the stitch in the vagina. Questions were answered. Follow-up as needed. Surgical History History of endoscopy 08/2022 - Dr. Blanton at [facility]. S/P lumpectomy, right breast (01/27/20) H/O excision of mass H/O colonoscopy 2013 H/O esophagogastroduodenoscopy 2019 History of laparotomy (~1996) left ovarian cystectomy Hx of hysterectomy (~04/08/14) with vaginal repair------- TVH, LSO, Uterosacral ligament suspension, Anterior vaginal repair, Perineorrhaphy, Single incision suburethral sling, Cystoscopy, Lysis of bowel adhesions. 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 Performed by Dr. Remi Musa at [facility] in [place], [place]. Surgical findings: Third degree cystocele, second to third degree uterine prolapse, adhesions of the sigmoid to the left fundal portion of the uterus and to the left ovary, left ovarian cyst present. History of surgery on right wrist (~12/2010) Hx of cholecystectomy (~02/2005) Laparoscopic. Performed by Dr. Blanton at [facility] in [place], [place]. History of bunionectomy (~2001) left H/O ovarian cystectomy (~1996) Left-- Laparotomy Hx of breast biopsy (~1993) 1993-- 1 cyst removed from left breast and 2 cysts removed from right breast. All pathologies were benign. History of tonsillectomy and adenoidectomy (~195) Family History Grandfather Diabetes Maternal Mother Breast cancer dx at age 45 Denies family history of Colon cancer Ovarian cancer Heart disease Hypercholesteremia Anesthesia complication Bleeding disorder Hypertension Uterine cancer Thyroid disease Stroke Social History Smoking and tobacco/nicotine status: never used tobacco/nicotine Vitals/I&O/Wt Last Vital Signs Temp 98.5 F 09/04/23 13:16 Pulse 99 09/04/23 15:42 Resp 22 H 09/04/23 15:42 BP 115/73 09/04/23 15:42 Pulse Ox 99 09/04/23 15:42 O2 Del Method Room Air 09/04/23 15:42 Weight last 48 hrs Weight 76.204 kg Physical Exam 2 Narrative: Patient looks clinically dehydrated Nonfocal neuroexam S1, S2 Tender tachycardia Abdomen soft Currently on room air Awake and alert Pleasant and cooperative is at the bedside Data 09/04/23 14:02 09/04/23 14:02 Micro: Microbiology 09/04/23 14:02 Blood Culture - Preliminary Blood SPECIMEN COLLECTED 09/04/23 14:06 Blood Culture - Preliminary Blood SPECIMEN COLLECTED A&P Assessment and plan (1) Hypertension: Qualifiers: Hypertension type: primary hypertension Qualified Code(s): I10 - Essential (primary) hypertension (2) Hx of deep venous thrombosis: (3) History of hypothyroidism: (4) Dysphagia: (5) IBS (irritable bowel syndrome): Qualifiers: Irritable bowel syndrome type: with diarrhea Qualified Code(s): K58.0 - Irritable bowel syndrome with diarrhea (6) Hemorrhoids: (7) Diarrhea: (8) Acute renal failure: (9) Dehydration: (10) Chronic cystitis: (11) Diffuse large b-cell lymphoma, lymph nodes of head, face, and neck: (12) Breast cancer, right: (13) 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 difficile rule out Recurrent UTI previous urine culture showed E. coli, Klebsiella Currently on aztreonam Acute on chronic kidney disease related to dehydration Dissipate improvement with IV fluids Avoid nephrotoxic agents History of DVT continue rivaroxaban Attestations 2 Medical Necessity Statement*: more than 2 midnights anticipated Diagnoses Primary hypertension I10 Hypertension type: primary hypertension Hx of deep venous thrombosis Z86.718 History of hypothyroidism Z86.39 Dysphagia R13.10 Irritable bowel syndrome with diarrhea K58.0 Irritable bowel syndrome type: with diarrhea Hemorrhoids K64.9 Diarrhea R19.7 Acute renal failure N17.9 Dehydration E86.0 Chronic cystitis N30.20 Diffuse large b-cell lymphoma, lymph nodes of head, face, and neck C83.31 Breast cancer, right C50.911 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
[2023-09-04 17:32] LABS: Bilirubin Urine Neg (Negative); Blood Urine 3+ (Negative); Glucose Urine UA Norm (Normal); Ketones Urine Negative (Negative); Leukocyte Esterase Urine 2+ (Negative); Nitrate Urine Positive (Negative); Protein Urine 1+ (Negative); Specific Gravity, Urine 1.015 (1.005-1.030); Urine Appearance Cloudy (CLEAR); Urine Color Yellow (Yellow); Urobilinogen Urine Norm (Negative); pH Urine 5 (5-7)
[2023-09-04 17:33] LABS: Add Urine Culture? Yes; Bacteria Urine 2+ /hpf; Squamous Epithelial Cell Urine 0-4 /hpf (0-5); WBC Urine TOO NUMEROUS TO CNT /hpf (0-5)
[2023-09-04 17:46] VITALS: BP 133/77; PULSE 101; O2SAT 94
[2023-09-04] MEDS: sodium bicarbonate 150 MEQ in dextrose 5% 1,000 ML 100 MEQ IV (17:54)
[2023-09-04 18:09] LABS: Potassium, Radom Urine 15 mmol/L; Urine Creatinine 145 mg/dL (28-217); Urine Random Chloride 39 mmol/L; Urine Random Sodium 25 mmol/L
[2023-09-04 18:39] VITALS: BMI 30.4
[2023-09-04] MEDS: potassium chloride ER 20 mEq Tablet 40 MEQ PO (18:47)
[2023-09-04] MEDS: pregabalin 150 mg Capsule PO (18:47)
[2023-09-04] MEDS: metoprolol tartrate 25 mg Tablet PO (18:47)
[2023-09-04] MEDS: aztreonam 2,000 MG in sodium chloride 0.9% (plus) 100 ML 200 MG IV (18:49)
[2023-09-04] MEDS: metroNIDAZOLE IV 500 MG/100 ML PREMIX 100 MG IV (19:36)
[2023-09-04 20:54] VITALS: BP 125/81; PULSE 82; RESP 16; TEMP 36.7; O2SAT 97
[2023-09-05] VITALS (8 sets, daily range): BP systolic 100–133; BP diastolic 63–79; PULSE 73–93; RESP 16–18; TEMP 36.3–37; O2SAT 92–98
[2023-09-05] MEDS: metroNIDAZOLE IV 500 MG/100 ML PREMIX 100 MG IV ×3 (02:34→19:43)
[2023-09-05 05:30] LABS: Eosinophils # 0.1 10^3/uL (0.0-0.8); Eosinophils % 1.8 %; Hematocrit 27.5 % (36-47); Lymphocytes # 0.5 10^3/uL (0.8-4.8); Lymphocytes % 10.9 %; Mean Corpuscular HGB Conc 33.8 g/dL (30-55); Mean Corpuscular Hemoglobin 32.5 pg (27-33); Mean Corpuscular Volume 96.2 fl (85-98); Mean Platelet Volume 10.2 fL (7.4-10.4); Monocytes # 0.4 10^3/uL (0.2-0.9); Monocytes % 8.9 %; Neutrophils # 3.84 10^3/uL (1.8-7.7); Neutrophils % 77.8 %; Nucleated Red Blood Cells % 0 %; Platelet Count 145 10^3/cmm (157-399); Red Blood Count 2.86 10^6/uL (3.85-5.65); Red Cell Distribution Width 14.3 % (12.1-15.1); White Blood Count 4.94 10^3/uL (3.29-11.43)
[2023-09-05 05:54] LABS: Anion Gap 12.1 (5-19); Blood Urea Nitrogen 41 mg/dL (8-23); Calcium 7.4 mg/dL (8.5-10.5); Carbon Dioxide 22 mmol/L (22-29); Chloride 109 mmol/L (98-107); Glucose 109 mg/dL (65-115); Magnesium 1.6 mg/dL (1.7-2.3); Osmolality Calculated 301 mOsm/kg (285-295); Potassium 3.1 mmol/L (3.5-5.1); Sodium 140 mmol/L (136-145)
[2023-09-05 05:59] LABS: Creatinine Clr Calc Pharmacy 29.2507
[2023-09-05] MEDS: aztreonam 2,000 MG in sodium chloride 0.9% (plus) 100 ML 200 MG IV ×2 (06:21→17:18)
[2023-09-05] MEDS: levothyroxine 100 mcg Tablet PO (08:29)
[2023-09-05] MEDS: magnesium oxide 400 mg tablet PO (08:29)
[2023-09-05] MEDS: potassium chloride ER 20 mEq Tablet PO ×2 (08:29→17:18)
[2023-09-05] MEDS: pregabalin 150 mg Capsule PO ×2 (08:29→17:18)
[2023-09-05] MEDS: rivaroxaban 10 mg Tablet PO (08:29)
[2023-09-05] MEDS: metoprolol tartrate 25 mg Tablet PO ×2 (08:29→17:18)
--- NOTE | 2023-09-05 09:03 | PC.CHAP ---
Pastoral Care Encounter/Spiritual Assessment Type of Contact [] Declined district captain visit [] Patient/Family/Request visit [] Outpatient visit [] Follow-up visit [] Physician referral [] Code/Alert [x] Routine visit [] Staff referral [] Actively dying [] Patient sleeping [] Family support [] [] Out of room [] Palliative care [] [] Receiving care in room [] Pre-surgical visit [] Trauma [] Long length of stay [] ICU visit [] Other: Relational/Emotional Strength [x] Patient feels connected with others/family/visitors/staff [] Distress [] Loneliness/isolation [] Abandonment Spirituality of Patient [x] Person of Darline [] Attends Sabianism of their Darline [x] Believes in Prayer [] Reads Bible or Islam materials [] There are Spiritual issues to be addressed Fermentation Manager Interventions [x] Prayer [x] Active listening [] Non-anxious presence x] Spiritual/emotional support [] Crisis/trauma care [] Spiritual counseling [] Bereavement support [] Provided bereavement packet [] Provided Bible/devotional materials [] Provided toy/stuffed animal, coloring book to patient or family member [] Provided Communion [] Anointing/Peebles [] Salvation [x] Completed spiritual assessment [] Other: Impact on Illness or Injury [] Angry [] Fearful [] Anxious [] Often cries [] Exhaustion [] Unable to work [] Unable to attend congregation [] Unable to walk/stand [] Unable to read [] Unable to drive [] Unable to eat/drink [] Unable to sleep [] Unable to be with family [] Patient intubated [] Other: Summary Time spent with patient 5 min
--- NOTE | 2023-09-05 09:24 | P.PN_ITS ---
Subjective 2 Subjective: Creatinine improved Patient is endorsing feeling better Bicarb drip discontinued Acidosis improved Patient able to tolerate diet No fever or diarrhea Did discuss the findings IVC filter protrusion, it was placed [address] Berry in the hospital, hemoglobin has remained stable, I will give her vascular follow-up at the time of discharge Vitals/I&O/Wt Last Vital Signs Temp 97.4 F L 09/05/23 08:00 Pulse 73 09/05/23 08:12 Resp 16 09/05/23 08:12 BP 113/66 09/05/23 08:00 Pulse Ox 96 09/05/23 08:12 O2 Del Method Room Air 09/05/23 08:12 09/04/23 09/05/23 09/05/23 22:59 06:59 14:59 Intake Total 2320 / 2320 1250 / 3570 580 / 580 Output Total 200 / 200 Balance 2320 / 2320 1050 / 3370 580 / 580 Weight last 48 hrs Weight 81.647 kg Weight 83.036 kg Weight 76.204 kg Physical Exam 2 Narrative: Awake and alert Sign of dehydration improving Focal neuroexam S1, S2 Variable Currently on room air Pleasant cooperative abdomen soft Bowel sound present but sluggish Data 09/05/23 04:54 09/05/23 04:54 Micro: Microbiology 09/04/23 14:02 Blood Culture - Preliminary Blood SPECIMEN COLLECTED 09/04/23 14:06 Blood Culture - Preliminary Blood SPECIMEN COLLECTED A&P Assessment and plan (1) Hx of deep venous thrombosis: (2) History of hypothyroidism: (3) Dysphagia: (4) IBS (irritable bowel syndrome): Qualifiers: Irritable bowel syndrome type: with diarrhea Qualified Code(s): K58.0 - Irritable bowel syndrome with diarrhea (5) Hemorrhoids: (6) Diarrhea: (7) Acute renal failure: (8) Chronic cystitis: (9) Diffuse large b-cell lymphoma, lymph nodes of head, face, and neck: (10) Breast cancer, right: (11) 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: (12) Peripheral neuropathy: Plan Colitis Continue antibiotics No active diarrhea No fever Advance diet to GI soft Normal anion gap acidosis secondary to diarrhea: Resolved bicarb drip turned off Hypokalemia: Continue replenished Sinus tachycardia improved Signs of dehydration improving I will continue IV fluids till 10 PM today Recurrent UTI currently on antibiotic Acute on chronic kidney disease Creatinine improving Patient has an IVC filter which is protruding through the wall I have notified the patient will need outpatient referral to vascular surgery Continue rivaroxaban Discontinue tomorrow Will request physical therapy Attestations 2 Medical Necessity Statement*: Discharge likely tomorrow Diagnoses Hx of deep venous thrombosis Z86.718 History of hypothyroidism Z86.39 Dysphagia R13.10 Irritable bowel syndrome with diarrhea K58.0 Irritable bowel syndrome type: with diarrhea Hemorrhoids K64.9 Diarrhea R19.7 Acute renal failure N17.9 Chronic cystitis N30.20 Diffuse large b-cell lymphoma, lymph nodes of head, face, and neck C83.31 Breast cancer, right C50.911 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
[2023-09-05] MEDS: lactated ringers 1,000 ML 100 ML IV ×2 (11:07→19:44)
[2023-09-05] MEDS: acetaminophen 500 mg Tablet PO (22:16)
[2023-09-06 01:57] LABS: C.Diff PCR (Lab) NEGATIVE (Negative)
[2023-09-06] MEDS: zinc oxide oint 30 gm 1 APPLIC TOPICAL (02:16)
[2023-09-06] MEDS: metroNIDAZOLE IV 500 MG/100 ML PREMIX 100 MG IV ×3 (02:57→18:32)
[2023-09-06 04:25] VITALS: BP 157/84; PULSE 84; RESP 18; TEMP 37; O2SAT 93
[2023-09-06] MEDS: aztreonam 2,000 MG in sodium chloride 0.9% (plus) 100 ML 200 MG IV ×2 (05:56→17:44)
[2023-09-06 06:20] LABS: Eosinophils # 0.1 10^3/uL (0.0-0.8); Eosinophils % 2.6 %; Lymphocytes # 0.9 10^3/uL (0.8-4.8); Lymphocytes % 15.9 %; Mean Corpuscular HGB Conc 31.2 g/dL (30-55); Mean Corpuscular Hemoglobin 31.6 pg (27-33); Mean Corpuscular Volume 101.2 fl (85-98); Mean Platelet Volume 9.9 fL (7.4-10.4); Monocytes # 0.5 10^3/uL (0.2-0.9); Monocytes % 9.9 %; Neutrophils # 3.86 10^3/uL (1.8-7.7); Neutrophils % 70.7 %; Nucleated Red Blood Cells % 0 %; Platelet Count 155 10^3/cmm (157-399); Red Blood Count 3.26 10^6/uL (3.85-5.65); Red Cell Distribution Width 14.4 % (12.1-15.1); White Blood Count 5.46 10^3/uL (3.29-11.43)
[2023-09-06 06:38] LABS: Blood Urea Nitrogen 28 mg/dL (8-23); Calcium 7.7 mg/dL (8.5-10.5); Carbon Dioxide 17 mmol/L (22-29); Chloride 111 mmol/L (98-107); Glucose 125 mg/dL (65-115); Osmolality Calculated 297 mOsm/kg (285-295); Sodium 140 mmol/L (136-145)
[2023-09-06 06:39] LABS: Creatinine Clr Calc Pharmacy 46.4324
[2023-09-06 07:56] VITALS: PULSE 95; RESP 18; O2SAT 99
[2023-09-06 08:04] VITALS: BP 120/74; PULSE 95; RESP 16; TEMP 36.8; O2SAT 98
--- NOTE | 2023-09-06 09:34 | P.PN_ITS ---
Subjective 2 Subjective: Patient had 7 episode of diarrhea, C. difficile. Creatinine improving I will continue IV fluids Give her Pyridium, add morphine Will give her Imodium as well Patient is stating that she is hurting around her rectal and vaginal area, zinc oxide cream has helped her symptoms She would like to see a surgeon to get evaluated for her hemorrhoids Vitals/I&O/Wt Last Vital Signs Temp 98.2 F 09/06/23 08:04 Pulse 95 09/06/23 08:04 Resp 16 09/06/23 08:04 BP 120/74 09/06/23 08:04 Pulse Ox 98 09/06/23 08:04 O2 Del Method Room Air 09/06/23 08:04 09/05/23 09/06/23 09/06/23 22:59 06:59 14:59 Intake Total 1421.667 / 2341.667 1200 / 3541.667 120 / 120 Output Total 353 / 353 7 / 360 Balance 1068.667 / 0382.771 1421 / 3181.667 120 / 120 Weight last 48 hrs Weight 86.183 kg Weight 81.647 kg Weight 83.036 kg Weight 76.204 kg Physical Exam 2 Narrative: Patient is awake and alert Signs of dehydration present GCS 15 Nonfocal neuroexam Abdomen soft Bowel sound present Hemodynamic stable currently on room air Data 09/06/23 05:16 09/06/23 05:16 Micro: Microbiology 09/04/23 14:06 Blood Culture - Preliminary Blood NEGATIVE TO DATE 09/04/23 14:02 Blood Culture - Preliminary Blood NEGATIVE TO DATE 09/04/23 16:45 Urine Culture - Preliminary Urine,Clean Catch Gram Negative Rods A&P Assessment and plan (1) Hx of deep venous thrombosis: (2) History of hypothyroidism: (3) Dysphagia: (4) IBS (irritable bowel syndrome): Qualifiers: Irritable bowel syndrome type: with diarrhea Qualified Code(s): K58.0 - Irritable bowel syndrome with diarrhea (5) Hemorrhoids: (6) Diarrhea: (7) Acute renal failure: (8) Chronic cystitis: (9) Diffuse large b-cell lymphoma, lymph nodes of head, face, and neck: (10) Breast cancer, right: (11) 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 difficile ruled out Will give her Imodium continue IV fluids GI soft diet Normal anion gap acidosis secondary to diarrhea: Resolved bicarb drip turned off Hypokalemia: Potassium 3.0 today Will give her IV potassium today Sinus tachycardia improved Signs of dehydration improving I will give her IV fluids for 1 more day Recurrent UTI currently on antibiotic Add Pyridium, urine culture Hemorrhoids I have notified general surgeon Acute on chronic kidney disease Creatinine improving with IV fluids Patient has an IVC filter which is protruding through the wall I have notified the patient will need outpatient referral to vascular surgery Continue rivaroxaban Discontinue tomorrow Will request physical therapy Attestations 2 Medical Necessity Statement*: Likely discharge tomorrow if stable Diagnoses Hx of deep venous thrombosis Z86.718 History of hypothyroidism Z86.39 Dysphagia R13.10 Irritable bowel syndrome with diarrhea K58.0 Irritable bowel syndrome type: with diarrhea Hemorrhoids K64.9 Diarrhea R19.7 Acute renal failure N17.9 Chronic cystitis N30.20 Diffuse large b-cell lymphoma, lymph nodes of head, face, and neck C83.31 Breast cancer, right C50.911 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
--- NOTE | 2023-09-06 10:21 | PC.SOCIAL ---
IMM Update pg 2 of IMM updated and reviewed w/ patient. Copy provided and copy dated, initialed and placed in chart.
[2023-09-06] MEDS: rivaroxaban 10 mg Tablet PO (10:34)
[2023-09-06] MEDS: potassium chloride ER 20 mEq Tablet PO ×2 (10:35→17:16)
[2023-09-06] MEDS: magnesium oxide 400 mg tablet PO (10:35)
[2023-09-06] MEDS: pregabalin 150 mg Capsule PO ×2 (10:35→17:16)
[2023-09-06] MEDS: metoprolol tartrate 25 mg Tablet PO ×2 (10:35→17:16)
[2023-09-06] MEDS: levothyroxine 100 mcg Tablet PO (10:35)
[2023-09-06] MEDS: lidocaine 1% 5 ML in potassium chloride premix 100 ML 26.25 ML IV ×2 (10:37→15:32)
[2023-09-06] MEDS: phenazopyridine 100 mg Tablet 200 MG PO ×3 (10:40→17:15)
[2023-09-06] MEDS: sodium chloride 0.9% 1,000 ML 100 ML IV ×2 (10:42→21:58)
[2023-09-06 11:31] VITALS: BP 109/69; PULSE 95; RESP 16; TEMP 36.7; O2SAT 98
--- NOTE | 2023-09-06 12:14 | PM.CONSULT ---
Providers/Reason For Consult Consulting Physician/Specialty*: General surgery Reason for Consult*: Hemorrhoids Attending Physician: Jacob Maharaj MD Primary Care Provider: Torin Sandhu MD History of Present Illness History of Present Illness Lexy Chawla is a 77 year old female admitted with gastroenteritis, acute kidney injury. Patient has history of hemorrhoids and after having multiple bouts of diarrhea she has noted that hemorrhoids have become inflamed. Usually she is able to manage her symptoms with corticoid cream. She denies any significant bleeding at this time, explains that since yesterday symptoms have improved. Review of Systems General: Reports: 10 or more systems reviewed and unremarkable except in HPI and below Medications/Allergies Home Medications Medication Instructions Recorded Confirmed Last Taken Type upsoefuy-eak-xzxso ac 400 1 tab PO DAILY 04/09/19 09/05/23 09/03/23 History mcg-calcium carb 500 mg-vit K1 20 mcg tablet (Women's 50 Plus Multivitamin) cholestyramine (with sugar) 4 gram 2 g PO BID #368.76 grams 01/16/23 09/05/23 06/29/23 Rx oral powder levothyroxine 100 mcg tablet 100 mcg PO DAILY #90 tabs 03/20/23 09/05/23 09/03/23 Rx pregabalin 150 mg capsule 150 mg PO BID #60 caps 04/25/23 09/05/23 09/03/23 Rx methenamine hippurate 1 gram tablet See Rx Instructions .Route 04/27/23 09/05/23 Unknown Rx .COMPLEX #60 tabs hydrocortisone 2.5 % topical cream See Rx Instructions .Route 06/02/23 09/05/23 Unknown Rx with perineal applicator .COMPLEX #30 grams exemestane 25 mg tablet 25 mg PO DAILY #90 tabs 06/14/23 09/05/23 06/29/23 Rx hydrocodone 7.5 mg-acetaminophen 1 tab PO BID PRN pain 30 days #60 06/27/23 09/05/23 Unknown Rx 325 mg tablet tabs diclofenac sodium 75 mg 75 mg PO DAILY PRN Pain 06/30/23 09/05/23 Unknown History tablet,delayed release metoprolol tartrate 25 mg tablet 25 mg PO BID 06/30/23 09/05/23 09/03/23 History pantoprazole 40 mg tablet,delayed 40 mg PO DAILY 06/30/23 09/05/23 09/03/23 History release triamcinolone acetonide 0.1 % 1 applic topical DAILY PRN Skin 06/30/23 09/05/23 Unknown History topical cream Irritation rivaroxaban 10 mg tablet 10 mg PO DAILY #90 tabs 07/17/23 09/05/23 09/03/23 Rx potassium chloride 10 mEq 20 meq (2 x 10 mEq) PO BID #120 08/08/23 09/05/23 09/03/23 Rx capsule,extended release caps dicyclomine 20 mg tablet 20 mg PO BID abdominal cramping 08/28/23 09/05/23 09/03/23 Rx #20 tabs ondansetron 4 mg disintegrating See Rx Instructions .Route 08/28/23 09/05/23 Unknown Rx tablet .COMPLEX #60 ea duloxetine 30 mg capsule,delayed 30 mg PO DAILY #30 caps 09/05/23 Unknown Rx release promethazine 25 mg tablet 25 mg PO Q8H PRN Nausea 09/05/23 09/05/23 Unknown History Allergies Allergy/AdvReac Type Severity Reaction Status Date / Time clindamycin Allergy chest pain Verified 09/04/23 13:22 Penicillins Allergy rash Verified 09/04/23 13:22 Current Medications Generic Name Dose Route Start Last Admin Trade Name Freq PRN Reason Stop Dose Admin Acetaminophen 500 mg 09/04/23 18:38 09/05/23 22:16 Acetaminophen 500 Mg Tablet PO 500 mg Q4H PRN Administration fever Aztreonam 2,000 mg/ Sodium 100 mls @ 200 mls/hr 09/04/23 18:38 09/06/23 06:26 Chloride IV Infused Q12H MONA Infusion Protocol Metronidazole 500 mg in 100 mls @ 100 mls/hr 09/04/23 18:38 09/06/23 04:24 Flagyl Iv IV Infused Q8H MONA Infusion Protocol Sodium Chloride 1,000 mls @ 100 mls/hr 09/06/23 09:45 09/06/23 10:42 Sodium Chloride 0.9% IV 100 mls/hr .Q10H MONA Administration Lidocaine HCl 5 ml/ Potassium 105 mls @ 26.25 mls/hr 09/06/23 09:45 09/06/23 10:37 Chloride IV 09/06/23 17:44 26.25 mls/hr Q4H MONA Administration Levothyroxine Sodium 100 mcg 09/05/23 09:00 09/06/23 10:35 Levothyroxine 100 Mcg Tablet PO 100 mcg DAILY MONA Administration Magnesium Oxide 400 mg 09/05/23 09:00 09/06/23 10:35 Magnesium Oxide 400 Mg Tablet PO 400 mg DAILY MONA Administration Metoprolol Tartrate 25 mg 09/04/23 18:38 09/06/23 10:35 Metoprolol Tartrate 25 Mg Tablet PO 25 mg BID MONA Administration Phenazopyridine HCl 200 mg 09/06/23 09:40 09/06/23 10:40 Phenazopyridine 100 Mg Tablet PO 200 mg TIDPC MONA Administration Potassium Chloride 20 meq 09/05/23 09:00 09/06/23 10:35 Potassium Chloride Er 20 Meq Tablet PO 20 meq BID MONA Administration Pregabalin 150 mg 09/04/23 18:38 09/06/23 10:35 Pregabalin 150 Mg Capsule PO 150 mg BID MONA Administration Rivaroxaban 10 mg 09/05/23 09:00 09/06/23 10:34 Rivaroxaban 10 Mg Tablet PO 10 mg DAILY MONA Administration Zinc Oxide 1 applic 09/06/23 01:03 09/06/23 02:16 Zinc Oxide Oint 30 Gm TOPICAL 1 applic PRN PRN Administration SKIN PROTECTANT PFSH Acute PFSH: Medical History Depression Epistaxis Hx of deep venous thrombosis left leg Lower extremity deep venous thrombosis Hypothyroidism Breast cancer Diffuse large B cell lymphoma Peripheral neuropathy Osteoarthritis Breast cancer, right Hypertension GERD (gastroesophageal reflux disease) Diverticulitis IBS (irritable bowel syndrome) Urethral caruncle Chronic cystitis Hx of vaginal bleeding Patient presents again with complaint of bleeding which she believes came from the vaginal area. This occurred last night. On exam today no actual bleeding seen anywhere. Stitch from her vault suspension was again noted today on exam. No granulation tissue was noted on exam. However, due to this intermittent reporting of bleeding, I went ahead and removed the stitch. On removal, the stitch appeared to not be attached to anything other than the vaginal wall. Patient still had a urethral caruncle noted with a small spot adjacent to it which is suspicious for possible bleeding from that area. With her being on the Xarelto, she may have bled from either the caruncle or from the stitch in the vagina. Questions were answered. Follow-up as needed. Surgical History History of endoscopy 08/2022 - Dr. Blanton at [facility]. S/P lumpectomy, right breast (01/27/20) H/O excision of mass H/O colonoscopy 2013 H/O esophagogastroduodenoscopy 2018 History of laparotomy (~1996) left ovarian cystectomy Hx of hysterectomy (~04/08/14) with vaginal repair------- TVH, LSO, Uterosacral ligament suspension, Anterior vaginal repair, Perineorrhaphy, Single incision suburethral sling, Cystoscopy, Lysis of bowel adhesions. 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 Performed by Dr. Remi Musa at [facility] in [place], [place]. Surgical findings: Third degree cystocele, second to third degree uterine prolapse, adhesions of the sigmoid to the left fundal portion of the uterus and to the left ovary, left ovarian cyst present. History of surgery on right wrist (~12/2010) Hx of cholecystectomy (~02/2005) Laparoscopic. Performed by Dr. Blanton at [facility] in [place], [place]. History of bunionectomy (~2001) left H/O ovarian cystectomy (~1996) Left-- Laparotomy Hx of breast biopsy (~1993) 1993-- 1 cyst removed from left breast and 2 cysts removed from right breast. All pathologies were benign. History of tonsillectomy and adenoidectomy (~195) Family History Grandfather Diabetes Maternal Mother Breast cancer dx at age 45 Denies family history of Colon cancer Ovarian cancer Heart disease Hypercholesteremia Anesthesia complication Bleeding disorder Hypertension Uterine cancer Thyroid disease Stroke Social History Smoking and tobacco/nicotine status: never used tobacco/nicotine Vitals/I&O/Wt Last Vital Signs Temp 98.2 F 09/06/23 08:04 Pulse 95 09/06/23 08:04 Resp 16 07/03/24 08:04 BP 120/74 09/06/23 08:04 Pulse Ox 98 09/06/23 08:04 O2 Del Method Room Air 09/06/23 08:04 09/05/23 09/06/23 09/06/23 22:59 06:59 14:59 Intake Total 1421.667 / 2341.667 1200 / 3541.667 120 / 120 Output Total 353 / 353 7 / 360 Balance 1068.667 / 2915.597 6501 / 3181.667 120 / 120 Weight last 48 hrs Weight 190 lb Weight 180 lb Weight 183 lb 1 oz Weight 168 lb Physical Exam GI: OTHER: Abdomen soft nontender nondistended. Digital rectal examination was done, there is external hemorrhoids, no blood on the glove, there is liquid stool leaking after rectal examination. Data 09/06/23 05:16 09/06/23 05:16 Micro: Microbiology 09/04/23 14:06 Blood Culture - Preliminary Blood NEGATIVE TO DATE 09/04/23 14:02 Blood Culture - Preliminary Blood NEGATIVE TO DATE 09/04/23 16:45 Urine Culture - Preliminary Urine,Clean Catch Gram Negative Rods A&P Assessment and plan (1) IBS (irritable bowel syndrome): Qualifiers: Irritable bowel syndrome type: with diarrhea Qualified Code(s): K58.0 - Irritable bowel syndrome with diarrhea (2) Hemorrhoids: Plan Patient has external and internal hemorrhoids on digital rectal examination, they appear mildly inflamed, no significant bleeding. Recommendation will be to continue stool softeners once the patient acute GI pathology improves, continue high water intake, high-fiber intake and Anusol cream as needed. I can follow-up with the patient about 2 weeks in the clinic to discuss the need for additional interventions. Coding Level of Care Code 93913 Diagnoses Irritable bowel syndrome with diarrhea K58.0 Irritable bowel syndrome type: with diarrhea Hemorrhoids K64.9
[2023-09-06 16:12] VITALS: BP 124/65; PULSE 95; RESP 15; TEMP 36.6; O2SAT 97
[2023-09-06] MEDS: cholestyramine powder 4 gm Pkt PO (17:15)
[2023-09-06 20:00] VITALS: BP 95/62; PULSE 81; RESP 16; TEMP 37.1; O2SAT 95
[2023-09-07] VITALS (7 sets, daily range): BP systolic 97–121; BP diastolic 58–81; PULSE 75–88; RESP 16–19; TEMP 36.6–36.8; O2SAT 92–97
[2023-09-07] MEDS: metroNIDAZOLE IV 500 MG/100 ML PREMIX 100 MG IV ×3 (03:11→21:50)
[2023-09-07 05:16] LABS: Basophils % 0.2 %; Eosinophils # 0.3 10^3/uL (0.0-0.8); Eosinophils % 5.8 %; Hematocrit 29.1 % (36-47); Lymphocytes % 21.3 %; Mean Corpuscular HGB Conc 31.6 g/dL (30-55); Mean Corpuscular Hemoglobin 32.5 pg (27-33); Mean Corpuscular Volume 102.8 fl (85-98); Mean Platelet Volume 9.7 fL (7.4-10.4); Monocytes # 0.4 10^3/uL (0.2-0.9); Monocytes % 8.5 %; Neutrophils # 2.82 10^3/uL (1.8-7.7); Neutrophils % 63.3 %; Nucleated Red Blood Cells % 0 %; Platelet Count 140 10^3/cmm (157-399); Red Blood Count 2.83 10^6/uL (3.85-5.65); Red Cell Distribution Width 14.8 % (12.1-15.1); White Blood Count 4.46 10^3/uL (3.29-11.43)
[2023-09-07 05:46] LABS: Anion Gap 12.8 (5-19); Blood Urea Nitrogen 19 mg/dL (8-23); Calcium 7.1 mg/dL (8.5-10.5); Carbon Dioxide 15 mmol/L (22-29); Chloride 117 mmol/L (98-107); Creatinine Clr Calc Pharmacy 56.7508; Glucose 96 mg/dL (65-115); Osmolality Calculated 294 mOsm/kg (285-295); Potassium 3.8 mmol/L (3.5-5.1); Sodium 141 mmol/L (136-145)
[2023-09-07 05:56] LABS: Magnesium 1.4 mg/dL (1.7-2.3)
[2023-09-07] MEDS: loperamide 2 mg Capsule PO (06:29)
[2023-09-07] MEDS: aztreonam 2,000 MG in sodium chloride 0.9% (plus) 100 ML 200 MG IV ×2 (06:29→20:30)
[2023-09-07] MEDS: cholestyramine powder 4 gm Pkt PO (09:49)
[2023-09-07] MEDS: magnesium oxide 400 mg tablet PO (09:49)
[2023-09-07] MEDS: phenazopyridine 100 mg Tablet 200 MG PO ×3 (09:49→17:36)
[2023-09-07] MEDS: pregabalin 150 mg Capsule PO ×2 (09:49→17:36)
[2023-09-07] MEDS: potassium chloride ER 20 mEq Tablet PO ×2 (09:50→17:36)
[2023-09-07] MEDS: metoprolol tartrate 25 mg Tablet PO ×2 (09:50→17:37)
[2023-09-07] MEDS: levothyroxine 100 mcg Tablet PO (09:50)
[2023-09-07] MEDS: rivaroxaban 10 mg Tablet PO (09:50)
[2023-09-07] MEDS: sodium chloride 0.9% 1,000 ML 100 ML IV (09:51)
--- NOTE | 2023-09-07 09:54 | CTR_ITS ---
PROCEDURE INFORMATION: Exam: CT Abdomen And Pelvis With Contrast Exam date and time: 09/07/2023 3:32 PM Age: 77 years old Clinical indication: Vomiting and other: Diarrhea; Additional info: Colitis TECHNIQUE: Imaging protocol: Computed tomography of the abdomen and pelvis with contrast. Radiation optimization: All CT scans at this facility use at least one of these dose optimization techniques: automated exposure control; mA and/or kV adjustment per patient size (includes targeted exams where dose is matched to clinical indication); or iterative reconstruction. Contrast material: OMNI 350; Contrast volume: 100 ml; Contrast route: INTRAVENOUS (IV); COMPARISON: 1. CT abdomen pelvis wo con [id number] 09/04/2023 3:[address] abdomen pelvis wo/w [id number] 05/11/2022 12:41 PM RADIATION DOSE METRICS: Total DLP (mGy-cm): 795.43 FINDINGS: Lungs: Atelectasis in the lung bases without acute findings. Liver: Stable 1.1 cm cyst left hepatic lobe. Stable mild diffuse hepatic steatosis and slightly nodular liver contour which is again concerning for hepatocellular disease. The liver is otherwise unremarkable. Gallbladder and biliary ducts: Prior cholecystectomy. There is no evidence of biliary ductal dilation. Pancreas: The pancreas is normal. Spleen: 4 mm hypodense splenic lesion, likely a tiny cyst or hemangioma. Not concerning at this time and no follow-up is recommended. The spleen is otherwise unremarkable. Adrenal glands: The adrenal glands are normal. Kidneys and ureters: Stable 10 cm right renal cyst. Again, considering its size I would recommend ultrasound correlation in a nonemergent setting. Subcentimeter left renal hypodense lesions are too small to characterize but most probably benign representing cysts. Consider correlation with nonemergent ultrasound. 2.3 cm x 2.1 cm enhancing masslike lesion left renal upper pole. Heterogeneous area of enhancement in the left renal midpole, difficult to measure. The kidneys are otherwise unremarkable. There is no ureteral dilation. Stomach and bowel: Mucosal hyperenhancement at the rectum, sigmoid, and in skip segments throughout the descending colon. Multiple skip segments of mucosal hyperenhancement are also seen in the transverse colon. Diffusely fluid-filled colon. No significant small bowel inflammation. Appendix: No evidence of appendicitis. Intraperitoneal space: No free fluid, fluid collections, or pneumoperitoneum. 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 The arterial vasculature demonstrates diffuse mild atherosclerotic calcification. No aortic aneurysms. Portal venous system is patent. An inferior vena cava filter lies in stable position. Lymph nodes: No concerning adenopathy. Urinary bladder: The bladder is normal. Reproductive: There has been a hysterectomy. Bones/joints: Grade 1 anterolisthesis of L5 in relation to S1, degenerative in etiology. Moderate multilevel degenerative changes of the spine, as manifested by multilevel anterior osteophytes and multilevel decrease in intervertebral disc space. No acute skeletal abnormality or aggressive osseous lesion. Soft tissues: There is a fat-containing umbilical hernia. Left buttock calcified granulomas are benign. No acute body wall soft tissue findings. CT/CT abdomen pelvis w con* [id number] IMPRESSION: 1. Persistent proctocolitis, now predominantly involving the rectum, sigmoid, descending colon, and transverse colon. Diarrheal disease is also present considering the large amount of fluid throughout the colon. 2. 2.3 cm x 2.1 cm enhancing masslike lesion left renal upper pole. Not previously evident on 09/04/2023 due to lack of intravenous contrast, and new since 05/11/2022. I am unclear if this represents atrophied renal parenchyma with slightly dilated medullary pyramids with a adjacent small cyst or a true renal cell carcinoma. A similar but more irregular region is noted in the left renal midpole, which is difficult to measure. Further evaluation with a prompt renal mass protocol MRI of the abdomen without and with intravenous contrast is recommended. 3. 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 Compatible with collateral circulation. 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 COMMENTS: 1. For patients with an IVC filter, recommend assessment for a management plan for the patient's IVC filter. If there is no established management plan, recommend referral to an interventional clinician on a nonemergent basis for evaluation. 2. Consistent with the [employer]'s Incidental Findings Committee white paper (J Am Tiffanie Radiol 2018): Any incidental renal lesion less than 1 cm or classified as too small to characterize, or any incidental cystic renal lesion characterized as simple-appearing, is likely benign. No follow-up imaging is recommended for these lesions per consensus recommendations based on imaging criteria.
--- NOTE | 2023-09-07 09:54 | P.PN_ITS ---
Subjective 2 Subjective: Patient is stating that she is still experiencing cramps I will repeat her CT scan of abdomen with contrast Give her steroids Continue IV fluids, plan to keep her here until Monday She had 2 episodes of diarrhea this morning She has become acidotic again with normal anion gap Vitals/I&O/Wt Last Vital Signs Temp 98.2 F 09/07/23 07:31 Pulse 88 09/07/23 09:26 Resp 18 09/07/23 09:26 BP 118/71 09/07/23 07:31 Pulse Ox 94 09/07/23 09:26 O2 Del Method Room Air 09/07/23 09:26 09/06/23 09/07/23 09/07/23 22:59 06:59 14:59 Intake Total 1425 / 1870 1969 1100 / 1100 Balance 1425 / 1870 1969 1100 / 1100 Weight last 48 hrs Weight 89.159 kg Weight 86.183 kg Physical Exam 2 Narrative: Patient is awake and alert Complaining abdominal cramps Nonfocal neuroexam S1, S2 GCS of 3 - at bedside Improvement of dehydration Abdomen soft Data 09/07/23 04:35 09/07/23 04:35 Micro: Microbiology 09/04/23 16:45 Urine Culture - Final Urine,Clean Catch Escherichia coli A&P Assessment and plan (1) IBS (irritable bowel syndrome): Qualifiers: Irritable bowel syndrome type: with diarrhea Qualified Code(s): K58.0 - Irritable bowel syndrome with diarrhea (2) Hemorrhoids: (3) Diarrhea: (4) Dehydration: (5) Hypokalemia: (6) Normal anion gap metabolic acidosis: (7) Hypomagnesemia: Plan Colitis Continue to biotics I will give her steroids Replenish magnesium Continue fluids however I will change fluids to bicarb with D5 She has normal anion gap acidosis likely due to diarrhea Will request another CT scan of abdomen pelvis with contrast C. difficile negative Afebrile 2 episode of diarrhea this morning Full code Tolerating GI soft Attestations 2 Medical Necessity Statement*: Continue medical management Diagnoses Irritable bowel syndrome with diarrhea K58.0 Irritable bowel syndrome type: with diarrhea Hemorrhoids K64.9 Diarrhea R19.7 Dehydration E86.0 Hypokalemia E87.6 Normal anion gap metabolic acidosis E87.20 Hypomagnesemia E83.42
[2023-09-07] MEDS: methylPREDNISolone sod succ 125 mg/2 mL INJ 40 MG IVP ×2 (14:27→21:50)
[2023-09-07] MEDS: iohexol 350 mg/mL 500 mL Btl (per mL) IV (15:40)
[2023-09-07] MEDS: sodium bicarbonate 150 MEQ in dextrose 5% 1,000 ML 75 MEQ IV (15:42)
[2023-09-07] MEDS: magnesium sulfate premix 2 GM/50 ML PIGGYBACK IV (17:36)
[2023-09-07 18:08] LABS: CA 125 62.2 U/mL (0-35)
--- NOTE | 2023-09-07 18:18 | PM.PN ---
Subjective Subjective: 77-year-old female admitted with colitis and who I previously saw for hemorrhoids. I have been asked to reevaluate the patient for possibility of colonoscopy as recent CT scan of the abdomen pelvis show evidence of worsening colitis at the level of the rectum sigmoid and descending colon. On my evaluation patient states that after medication changes done by medical team she is feeling much better, abdominal pain has almost completely resolved and she is having semisolid bowel movements. Vitals/I&O/Wt Last Vital Signs Temp 97.9 F 09/07/23 16:00 Pulse 80 09/07/23 16:00 Resp 18 09/07/23 16:00 BP 121/81 09/07/23 16:00 Pulse Ox 96 09/07/23 16:00 O2 Del Method Room Air 09/07/23 16:00 09/07/23 09/07/23 09/07/23 06:59 14:59 22:59 Intake Total / 1969 2100.000 / 2100.000 220 / 2320.000 Balance / 1969 2100.000 / 2100.000 220 / 2320.000 Weight last 48 hrs Weight 196 lb 9 oz Weight 190 lb Physical Exam GI: OTHER: Abdomen is soft, nontender tender, nondistended. Overall benign abdominal exam Data 09/07/23 04:35 09/07/23 04:35 Micro: Microbiology 09/07/23 13:56 Stool Lactoferrin - Final Stool 09/04/23 16:45 Urine Culture - Final Urine,Clean Catch Escherichia coli A&P Assessment and plan (1) IBS (irritable bowel syndrome): Qualifiers: Irritable bowel syndrome type: with diarrhea Qualified Code(s): K58.0 - Irritable bowel syndrome with diarrhea (2) Colitis: Plan Patient is showing very good progression of her proctocolitis. I discussed with her the possibility of colonoscopy, we went over all the risk benefits of the procedure including the risk of perforation and of incomplete colonoscopy, I did inform her that if we do this on an acute phase there is increased risks of this happening although is still overall low. I discussed that the colonoscopy will be indicated to obtain biopsies and obtain a pathological diagnosis and to rule out cancer. Patient has a stated that at the moment she would like to be as least invasive as possible, since she is currently improving she would like to wait until she is out of the acute phase and after that she will follow-up in my clinic and we can schedule a colonoscopy. Since patient clinical picture appears to be improving I agree with this, I will remain available in the case of clinical deterioration in that setting we will have to proceed with colonoscopy. Case discussed with the medical team. Attestations Medical Necessity Statement*: Per medical team Coding Level of Care Code Acute Code for [facility] Fwd Diagnoses Irritable bowel syndrome with diarrhea K58.0 Irritable bowel syndrome type: with diarrhea Colitis K52.9
[2023-09-07 20:24] LABS: Carcinoembryonic Antigen 2.6 ng/mL (0.0-4.7)
[2023-09-08] VITALS: BP 116/72; PULSE 78; RESP 18; TEMP 36.4; O2SAT 97
[2023-09-08 03:04] LABS: Basophils % 0.3 %; Hematocrit 30.1 % (36-47); Lymphocytes # 0.4 10^3/uL (0.8-4.8); Lymphocytes % 11.8 %; Mean Corpuscular HGB Conc 31.9 g/dL (30-55); Mean Corpuscular Hemoglobin 32.2 pg (27-33); Mean Platelet Volume 9.9 fL (7.4-10.4); Monocytes % 1.1 %; Neutrophils % 85.5 %; Nucleated Red Blood Cells % 0 %; Platelet Count 184 10^3/cmm (157-399); Red Blood Count 2.98 10^6/uL (3.85-5.65); Red Cell Distribution Width 14.9 % (12.1-15.1); White Blood Count 3.74 10^3/uL (3.29-11.43)
[2023-09-08 03:21] LABS: Anion Gap 11.6 (5-19); Blood Urea Nitrogen 16 mg/dL (8-23); Calcium 7.3 mg/dL (8.5-10.5); Carbon Dioxide 18 mmol/L (22-29); Chloride 109 mmol/L (98-107); Creatinine Clr Calc Pharmacy 64.9513; Glucose 206 mg/dL (65-115); Osmolality Calculated 285 mOsm/kg (285-295); Potassium 4.6 mmol/L (3.5-5.1); Sodium 134 mmol/L (136-145)
[2023-09-08 04:00] VITALS: BP 113/69; PULSE 75; RESP 18; TEMP 36.4; O2SAT 95
[2023-09-08] MEDS: metroNIDAZOLE IV 500 MG/100 ML PREMIX 100 MG IV (05:26)
[2023-09-08] MEDS: loperamide 2 mg Capsule PO (05:27)
[2023-09-08 07:49] VITALS: PULSE 75; RESP 18; O2SAT 95
[2023-09-08 07:57] VITALS: BP 130/78; PULSE 77; RESP 17; TEMP 36.5; O2SAT 97
[2023-09-08] MEDS: phenazopyridine 100 mg Tablet 200 MG PO (08:43)
[2023-09-08] MEDS: metoprolol tartrate 25 mg Tablet PO (08:43)
[2023-09-08] MEDS: potassium chloride ER 20 mEq Tablet PO (08:43)
[2023-09-08] MEDS: pregabalin 150 mg Capsule PO (08:43)
[2023-09-08] MEDS: rivaroxaban 10 mg Tablet PO (08:43)
[2023-09-08] MEDS: aztreonam 2,000 MG in sodium chloride 0.9% (plus) 100 ML 200 MG IV (08:43)
[2023-09-08] MEDS: levothyroxine 100 mcg Tablet PO (08:43)
--- NOTE | 2023-09-08 09:19 | PM.DCS ---
Discharge Providers Date of Admission: 09/04/23 17:10 Date of Discharge: September 08, 2023 Attending Provider at Admission: Chelsea Maharaj MD Attending Provider at Discharge: Chelsea Maharaj MD Primary Care Provider: Torin Sandhu MD Diagnoses at Discharge Discharge Diagnosis (1) IBS (irritable bowel syndrome): Status: Acute Qualifiers: Irritable bowel syndrome type: with diarrhea Qualified Code(s): K58.0 - Irritable bowel syndrome with diarrhea (2) Colitis: Status: Acute Reason for Visit Reason for Visit: weakness, n/v Hospital Course Hospital Course 77-year female who was admitted for management evaluation of diarrheal episode which started last 3 to 4 weeks, her p.o. intake had worsened as well, she was diagnosed with colitis of cecal ascending and transverse colon, C. difficile was ruled out, she was kept on IV fluids along bicarb drip because she had normal anion gap acidosis related to her diarrhea her electrolytes were replenished during hospitalization, she remained afebrile, experienced 7 episodes of diarrhea on first night and then 2 episodes on subsequent night repeat CT scan was done which showed progression of colitis to proctocolitis and ascending colon, general surgery was consulted to evaluate her, patient was given option to get colonoscopy during hospitalization versus outpatient once colitis improved she decided to go with outpatient colonoscopy once her colitis symptoms improved. She will need 10 days of antibiotics, I will also give her bicarb tablets. Patient is stating that she might be interested in seeing a forming roll operator heavy duty in [place] if her diarrhea worsens. Please note she has history of recurrent UTI urine culture was sent which is showing E. coli. Acute on chronic kidney disease related dehydration resolved with IV fluid hydration. I have told patient that we need to do colonoscopy to do biopsies to rule out microscopic colitis, eosinophilic colitis because she takes exemestane which can cause drug-induced colitis, she is stating that previous colonoscopies were unremarkable for any malignancies however at this point biopsy is indicated Please note I have given her IV steroids which improved her diarrheal episodes. Will give her Medrol pack Physical Exam Narrative: Awake and alert Tolerating diet Pleasant cooperative Nonfocal neuroexam Abdomen nontender Discharge Data Studies Completed and Pending Completed Studies During Hospitalization Category Date Time Status CT abdomen pelvis w con* [id number] Routine Cat Scan 09/07/23 09:[address] abdomen pelvis wo con [id number] Stat Cat Scan 09/04/23 14:58 Completed Pending at discharge Category Date Time Status Blood Culture Stat Lab 09/04/23 14:02 Results Helicobacter Pylori AG Stool Routine Lab 09/07/23 09:55 Ordered Rota Virus AG Stool Routine Lab 09/07/23 09:55 Ordered Stool Culture - Enteric [Salmonella / Shigella / Campy] Lab 09/07/23 00:49 Received Routine MR abdomen wo con [id number] Routine MRI 09/08/23 07:00 Ordered Radiology Impressions Abdomen/Pelvis CT 09/07/23 09:54 IMPRESSION: 1. Persistent proctocolitis, now predominantly involving the rectum, sigmoid, descending colon, and transverse colon. Diarrheal disease is also present considering the large amount of fluid throughout the colon. 2. 2.3 cm x 2.1 cm enhancing masslike lesion left renal upper pole. Not previously evident on 09/04/2023 due to lack of intravenous contrast, and new since 05/11/2022. I am unclear if this represents atrophied renal parenchyma with slightly dilated medullary pyramids with a adjacent small cyst or a true renal cell carcinoma. A similar but more irregular region is noted in the left renal midpole, which is difficult to measure. Further evaluation with a prompt renal mass protocol MRI of the abdomen without and with intravenous contrast is recommended. 3. 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 Compatible with collateral circulation. 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 COMMENTS: 1. For patients with an IVC filter, recommend assessment for a management plan for the patient's IVC filter. If there is no established management plan, recommend referral to an interventional clinician on a nonemergent basis for evaluation. 2. Consistent with the [employer]'s Incidental Findings Committee white paper (J Am Tiffanie Radiol 2018): Any incidental renal lesion less than 1 cm or classified as too small to characterize, or any incidental cystic renal lesion characterized as simple-appearing, is likely benign. No follow-up imaging is recommended for these lesions per consensus recommendations based on imaging criteria. ADDENDUM: 09/07/23 [id number] Comments: THIS REPORT CONTAINS FINDINGS THAT MAY BE CRITICAL TO PATIENT CARE. The findings were verbally communicated via telephone conference with CHELSEA MAHARAJ at 4:28 PM CDT on 09/07/2023. The findings were acknowledged and understood. Laboratory Results WBC 3.74 10^3/uL (3.29-11.43) 09/08/23 02: RBC 2.98 10^6/uL (3.85-5.65) L 09/08/23 02:27 Hgb 9.60 g/dL (11.27-16.99) L 09/08/23 02:27 Hct 30.1 % (36-47) L 09/08/23 02: MCV 101.0 fl (85-98) H 09/08/23 02: MCH 32.2 pg (27-33) 09/08/23 02: MCHC 31.9 g/dL (30-55) 09/08/23 02: RDW 14.9 % (12.1-15.1) 09/08/23 02:27 Plt Count 184 10^3/cmm (157-399) D 09/08/23 02:27 MPV 9.9 fL (7.4-10.4) 09/08/23 02:27 Neut % (Auto) 85.5 % 09/08/23 02: Lymph % (Auto) 11.8 % 09/08/23 02: Ocean % (Auto) 1.1 % 09/08/23 02: Eos % (Auto) 0.0 % 09/08/23 02: Baso % (Auto) 0.3 % 09/08/23 02:27 Neut # (Auto) 3.20 10^3/uL (1.8-7.7) 09/08/23 02:27 Lymph # (Auto) 0.4 10^3/uL (0.8-4.8) L 09/08/23 02:27 Ocean # (Auto) 0.0 10^3/uL (0.2-0.9) L 09/08/23 02:27 Eos # (Auto) 0.0 10^3/uL (0.0-0.8) 09/08/23 02:27 Baso # (Auto) 0.0 10^3/uL (0.0-0.1) 09/08/23 02:27 Nucleated RBC % (auto) 0 % 09/08/23 02:27 Nucleated RBCs # 0.0 /100WBC 09/08/23 02:27 Sodium 134 mmol/L (136-145) L 09/08/23 02:27 Potassium 4.6 mmol/L (3.5-5.1) 09/08/23 02:27 Chloride 109 mmol/L (98-107) H 09/08/23 02:27 Carbon Dioxide 18 mmol/L (22-29) L 09/08/23 02:27 Anion Gap 11.6 (5-19) 09/08/23 02:27 BUN 16 mg/dL (8-23) 09/08/23 02:27 Creatinine 0.8 mg/dL (0.5-0.9) 09/08/23 02:27 GFR Calculation Not Reportable 09/08/23 02:27 Glucose 206 mg/dL (65-115) H 09/08/23 02:27 Calculated Osmolality 285 mOsm/kg (285-295) 09/08/23 02:27 Lactic Acid 1.7 mmol/L (0.5-2.2) 09/04/23 14:02 Calcium 7.3 mg/dL (8.5-10.5) L 09/08/23 02:27 Magnesium 1.4 mg/dL (1.7-2.3) L 09/07/23 04:35 Total Bilirubin 0.7 mg/dL (0.15-1.2) 09/04/23 14:02 AST 17 U/L (0-32) 09/04/23 14:02 ALT 11 U/L (0-33) 09/04/23 14:02 Alkaline Phosphatase 88 U/L (35-105) 09/04/23 14:02 C-Reactive Protein 113.0 mg/L (0.0-4.9) H 09/05/23 04:54 Total Protein 5.9 g/dL (6.6-8.7) L 09/04/23 14:02 Albumin 3.2 g/dL (3.5-5.2) L 09/04/23 14:02 Globulin 2.7 g/dL (1.3-4.6) 09/04/23 14:02 Carcinoembryonic Ag 2.6 ng/mL (0.0-4.7) 09/07/23 04:35 CA 19-9 Antigen 75.00 U/mL (0-35) H 09/07/23 04:35 CA 125 Antigen 62.2 U/mL (0-35) H 09/07/23 04:35 Urine Color Yellow (Yellow) 09/04/23 16:45 Urine Appearance Cloudy (CLEAR) A 09/04/23 16:45 Urine pH 5 (5-7) 09/04/23 16:45 Ur Specific Tarpley 1.015 (1.005-1.030) 09/04/23 16:45 Urine Protein 1+ (Negative) H 09/04/23 16:45 Urine Glucose (UA) Norm (Normal) 09/04/23 16:45 Urine Ketones Negative (Negative) 09/04/23 16:45 Urine Blood 3+ (Negative) H 09/04/23 16:45 Urine Nitrate Positive (Negative) A 09/04/23 16:45 Urine Bilirubin Neg (Negative) 09/04/23 16:45 Urine Urobilinogen Norm mg/dL (Negative) 09/04/23 16:45 Ur Leukocyte Esterase 2+ (Negative) H 09/04/23 16:45 Urine RBC 11-20 /hpf (0-2) 09/04/23 16:45 Urine WBC Too numerous to cnt /hpf (0-5) H 09/04/23 16:45 Ur Squamous Epith Cells 0-4 /hpf (0-5) H 09/04/23 16:45 Amorphous Sediment Not Reportable 09/04/23 16:45 Urine Bacteria 2+ /hpf (NONE) H 09/04/23 16:45 Ur Random Sodium 25 mmol/L 09/04/23 16:45 Ur Random Potassium 15 mmol/L 09/04/23 16:45 Ur Random Chloride 39 mmol/L 09/04/23 16:45 Urine Creatinine 145 mg/dL (28-217) 09/04/23 16:45 C. difficile (PCR) Negative (Negative) 09/06/23 00:49 Vitals Last Vital Signs Temp 97.7 F 09/08/23 07:57 Pulse 77 09/08/23 07:57 Resp 17 09/08/23 07:57 BP 130/78 09/08/23 07:57 Pulse Ox 97 09/08/23 07:57 O2 Del Method Room Air 09/08/23 07:49 Discharge Plan Discharge Patient Disposition: Home Health Service Condition: Stable Prescriptions: New loperamide [Imodium A-D] 2 mg capsule 2 mg PO Q8H PRN (Reason: loose stool) Qty: 14 0RF Rx Instructions: administer after each loose stool until symptoms controlled; do not exceed 8 mg per 24 hrs metronidazole 500 mg tablet 500 mg PO Q8H 7 Days Qty: 21 0RF ciprofloxacin HCl 500 mg tablet 500 mg PO BID Qty: 14 0RF sodium bicarbonate 650 mg tablet 650 mg PO DAILY Qty: 7 0RF Continued Women's 50 Plus Multivitamin 400 mcg-500 mg calcium-20 mcg tablet 1 tab PO DAILY rivaroxaban 10 mg tablet 10 mg PO DAILY Qty: 90 0RF Rx Instructions: for 35 days cholestyramine (with sugar) 4 gram powder 2 g PO BID Qty: 368.76 5RF Rx Instructions: administer w/meal; avoid other meds within 1hr before or 4-6hr after dose levothyroxine 100 mcg tablet 100 mcg PO DAILY Qty: 90 3RF pregabalin 150 mg capsule 150 mg PO BID Qty: 60 5RF methenamine hippurate 1 gram tablet See Rx Instructions .ROUTE .COMPLEX Qty: 60 12RF Dose Instruction: TAKE ONE TABLET BY MOUTH TWICE DAILY FOR recurrent uti, take with 1000mg of vitamin C each DOSE Rx Instructions: TAKE ONE TABLET BY MOUTH TWICE DAILY FOR recurrent uti, take with 1000mg of vitamin C each DOSE hydrocortisone 2.5 % cream with perineal applicator See Rx Instructions .ROUTE .COMPLEX Qty: 30 3RF Dose Instruction: ONE application rectally TWICE DAILY NEEDED FOR HEMORRHOIDS Rx Instructions: ONE application rectally TWICE DAILY NEEDED FOR HEMORRHOIDS hydrocodone-acetaminophen 7.5-325 mg tablet 1 tab PO BID PRN (Reason: pain) 30 Days Qty: 60 0RF potassium chloride 10 mEq capsule, extended release 20 meq PO BID Qty: 120 0RF ondansetron 4 mg tablet,disintegrating See Rx Instructions .ROUTE .COMPLEX Qty: 60 1RF Dose Instruction: dissolve ONE TABLET UNDER THE TONGUE EVERY 8 HOURS NEEDED FOR nausea AND vomiting Rx Instructions: dissolve ONE TABLET UNDER THE TONGUE EVERY 8 HOURS NEEDED FOR nausea AND vomiting dicyclomine 20 mg tablet 20 mg PO BID Qty: 20 0RF duloxetine 30 mg capsule,delayed release(DR/EC) 30 mg PO DAILY Qty: 30 4RF promethazine 25 mg tablet 25 mg PO Q8H PRN (Reason: Nausea) triamcinolone acetonide 0.1 % cream 1 applic topical DAILY PRN (Reason: Skin Irritation) pantoprazole 40 mg tablet,delayed release (DR/EC) 40 mg PO DAILY diclofenac sodium 75 mg tablet,delayed release (DR/EC) 75 mg PO DAILY PRN (Reason: Pain) metoprolol tartrate 25 mg tablet 25 mg PO BID Held exemestane 25 mg tablet 25 mg PO DAILY Qty: 90 3RF Hold Instructions: Resume on 09/15/23. Rx Instructions: must administer after a meal Discharge Orders: Discharge Order (Routine); Ordered 09/08/23 Ordered By: Chelsea Maharaj Other Ambulatory Orders: DME: Elie (Order) Location: None Selected Ordered By: Chelsea Maharaj Referrals: [facility] ([facility]) [Outside] Torin Sandhu MD [Primary Care Provider] - (We have notified your physician's clinic of the need for a follow-up appointment to be scheduled. If you have not heard from them within the next 2 business days, please call them directly. ) Discharge Diet: GI Soft Discharge Activity: Increase activity as tolerated Patient Instructions: Opioid Safety Discharge Attestations Time Spent in Discharge Care*: greater than 30 min Quality Metrics Clinical Quality Measures [ No reported AMI, CVA or VTE this stay] Coding Level of Care Code Acute Code for [facility] Fwd Diagnoses Irritable bowel syndrome with diarrhea K58.0 Irritable bowel syndrome type: with diarrhea Colitis K52.9
--- NOTE | 2023-09-08 09:54 | PC.SOCIAL ---
IMM Update pg 2 of IMM updated and reviewed w/ patient. Copy provided and copy dated, initialed and placed in chart.
[2023-09-08] MEDS: methylPREDNISolone sod succ 125 mg/2 mL INJ 40 MG IVP (11:07)
== END 2023-09-08 12:34 | disposition home health service (06) | DRG 392 ==
LOC: ER 16:42 → MEDSURG 17:16
PROVIDERS: Internal Medicine; Admitting Provider Internal Medicine; Emergency Provider Emergency Medicine; PCP Family Medicine; Visit Provider Internal Medicine
DX: K58.0 Irritable bowel syndrome with diarrhea (principal); E87.29 Other acidosis; N17.9 Acute kidney failure, unspecified; C83.31 Diffuse large B-cell lymphoma, lymph nodes of head, face, and neck; E83.42 Hypomagnesemia; R13.10 Dysphagia, unspecified; E87.6 Hypokalemia; N30.20 Other chronic cystitis without hematuria; B96.20 Unspecified Escherichia coli [E. coli] as the cause of diseases classified elsewhere; E86.0 Dehydration; R00.0 Tachycardia, unspecified; Z86.718 Personal history of other venous thrombosis and embolism; Z79.01 Long term (current) use of anticoagulants; E03.9 Hypothyroidism, unspecified; I12.9 Hypertensive chronic kidney disease with stage 1 through stage 4 chronic kidney disease, or unspecified chronic kidney disease; N18.9 Chronic kidney disease, unspecified; K21.9 Gastro-esophageal reflux disease without esophagitis; G62.9 Polyneuropathy, unspecified; M19.90 Unspecified osteoarthritis, unspecified site; K64.4 Residual hemorrhoidal skin tags; K64.8 Other hemorrhoids; C50.911 Malignant neoplasm of unspecified site of right female breast; Z95.828 Presence of other vascular implants and grafts
CPT/HCPCS: 36415; 74176; 74177; 80048; 80053; 81001; 82378; 82436; 82570; 83605; 83630; 83735; 84133; 84300; 85025; 86140; 86301; 86304; 87040; 87045; 87077; 87086; 87186; 87427; 87449; 87493; 93005; 96361; 96374; 97116; 97161; 97530; 99285; J2405; J2919; J3475; J3480; J3490; J7030; J7070; J7120; Q9967

== ENCOUNTER 2023-09-12 13:11 | Oncology outpatient (recurring) (ONCR) | payer MEDICARE, SELFPAY ==
[2023-09-12 13:34] LABS: Basophils % 0.1 %; Eosinophils % 0.5 %; Hematocrit 33.6 % (36-47); Lymphocytes # 0.8 10^3/uL (0.8-4.8); Lymphocytes % 10.1 %; Mean Corpuscular HGB Conc 32.4 g/dL (30-55); Mean Corpuscular Volume 98.5 fl (85-98); Mean Platelet Volume 9.3 fL (7.4-10.4); Monocytes # 0.2 10^3/uL (0.2-0.9); Monocytes % 2.9 %; Neutrophils % 85.5 %; Nucleated Red Blood Cells % 0 %; Platelet Count 268 10^3/cmm (157-399); Red Blood Count 3.41 10^6/uL (3.85-5.65); Red Cell Distribution Width 14.7 % (12.1-15.1)
[2023-09-12 14:03] LABS: Alanine Aminotransferase 18 U/L (0-33); Albumin Level 3.1 g/dL (3.5-5.2); Alkaline Phosphatase 102 U/L (35-105); Anion Gap 13.7 (5-19); Aspartate Amino Transferase 40 U/L (0-32); Blood Urea Nitrogen 13 mg/dL (8-23); Calcium 8.1 mg/dL (8.5-10.5); Carbon Dioxide 26 mmol/L (22-29); Chloride 104 mmol/L (98-107); Globulin 2.2 g/dL (1.3-4.6); Glucose 129 mg/dL (65-115); Lactate Dehydrogenase 216 U/L (135-214); Magnesium 1.5 mg/dL (1.7-2.3); Osmolality Calculated 292 mOsm/kg (285-295); Potassium 3.7 mmol/L (3.5-5.1); Sodium 140 mmol/L (136-145); Total Bilirubin 0.4 mg/dL (0.15-1.2); Total Protein 5.3 g/dL (6.6-8.7)
== END 2023-10-04 23:59 | disposition home or self-care (01) ==
LOC: ONCMED 13:11
PROVIDERS: PCP Family Medicine; Referring Provider Internal Medicine; Visit Provider Internal Medicine Medical Oncology
DX: C50.811 Malignant neoplasm of overlapping sites of right female breast; C83.31 Diffuse large B-cell lymphoma, lymph nodes of head, face, and neck; E87.6 Hypokalemia; Z17.0 Estrogen receptor positive status [ER+]; Z79.818 Long term (current) use of other agents affecting estrogen receptors and estrogen levels; Z92.21 Personal history of antineoplastic chemotherapy; Z92.3 Personal history of irradiation; Z86.39 Personal history of other endocrine, nutritional and metabolic disease; Z79.01 Long term (current) use of anticoagulants; I10 Essential (primary) hypertension
CPT/HCPCS: 36415; 80053; 83615; 83735; 84443; 85025; 99214

== ENCOUNTER 2023-10-18 13:35 | Outpatient (CLI) | payer MEDICARE, SELFPAY ==
--- NOTE | 2023-10-18 13:30 | MM_ITS ---
WS: [id number] BILATERAL 3D TOMOSYNTHESIS DIGITAL DIAGNOSTIC MAMMOGRAPHY WITH CAD CLINICAL INFORMATION: history of breast cancer HISTORY: RIGHT lumpectomy. COMPARISON: 2022 TECHNIQUE: Bilateral CC, MLO, and ML views. FINDINGS: Scattered fibroglandular densities bilaterally. Postoperative changes RIGHT lumpectomy. Few incidenta l punctate calcifications. Treatment-related changes RIGHT breast with skin thickening. Vascular calc ification. No suspicious focal mass, asymmetry, calcifications, or architectural distortion. No evidence of kaushal gnancy. MM/[place] [id number] IMPRESSION: BI-RADS: 2-Benign FOLLOW UP: 1 Year Follow-up Recommend return to annual diagnostic mammography.
== END 2023-10-18 13:36 | disposition home or self-care (01) ==
LOC: RAD 13:36
PROVIDERS: PCP Family Medicine; Visit Provider Internal Medicine Medical Oncology
DX: Z85.3 Personal history of malignant neoplasm of breast; Z98.890 Other specified postprocedural states
CPT/HCPCS: 77062; G0279

== ENCOUNTER → 2023-11-01 12:33 | Outpatient (BNVA) | payer MEDICARE, SELFPAY | PROVIDERS: PCP Family Medicine; Visit Provider Family Medicine | DX: E03.9 Hypothyroidism, unspecified (principal); R04.0 Epistaxis; I95.1 Orthostatic hypotension | CPT/HCPCS: 80053; 85025 ==

== ENCOUNTER → 2023-11-08 08:45 | Outpatient (BNVA) | payer MEDICARE, SELFPAY | PROVIDERS: PCP Family Medicine; Visit Provider Family Medicine | DX: I95.1 Orthostatic hypotension (principal); E27.40 Unspecified adrenocortical insufficiency | CPT/HCPCS: 82533 ==

== ENCOUNTER → 2023-11-23 13:28 | Outpatient (BNVA) | payer MEDICARE, SELFPAY | PROVIDERS: PCP Family Medicine; Visit Provider Internal Medicine | DX: I95.1 Orthostatic hypotension (principal); I49.1 Atrial premature depolarization; I49.3 Ventricular premature depolarization | CPT/HCPCS: 93242 ==

== ENCOUNTER → 2023-12-07 11:10 | Outpatient (BNVA) | payer MEDICARE, SELFPAY | PROVIDERS: PCP Family Medicine; Visit Provider Student in an Organized Health Care Education/Training Program | DX: K64.9 Unspecified hemorrhoids (principal) | CPT/HCPCS: 99204; 99214 ==

== ENCOUNTER 2023-12-07 12:43 | Emergency (ER) | payer MEDICARE, SELFPAY ==
[2023-12-07] VITALS (11 sets, daily range): BP systolic 73–144; BP diastolic 49–83; PULSE 68–84; RESP 15–21; TEMP 36.5; O2SAT 97–100; BMI 26.9
--- NOTE | 2023-12-07 13:07 | XR_ITS ---
WS: [id number] Exam: XR chest 1V portable [id number] Date/Time of Exam: 12/07/2023 1:20 PM Reason For Exam: Possible Sepsis Comparison 07/03/2023. The lungs are clear and fully expanded. Normal cardiomediastinal silhouette. Bony elements are intact . Surgical clips along the RIGHT axilla. XR/XR chest 1V portable [id number] IMPRESSION: 1. Negative chest.
--- NOTE | 2023-12-07 13:20 | ED_ITS ---
HPI - Weakness 2 General: Chief complaint: Weakness Stated complaint: low bp Time Seen by Provider: 12/07/23 13:08 Source: patient Mode of arrival: ambulatory Limitations: no limitations History of Present Illness: 78-year-old female states she has been h aving increasing fatigue along with lightheadedness it has been gradually worsening she states for roughly a month. Had a history of non-Hodgkin's lymphoma and breast cancer she is in remission for both she is not on any treatments currently. States she has been having bleeding hemorrhoids and actually seen the surgeon today and was found to be hypotensive and sent here patient is hypotensive here and is pale she denies any large amounts of rectal bleeding states that she is from the hemorrhoids typically no black tarry stools denies any vomiting Associated symptoms: Denies chest pain, chills, dysuria, fever(s), headache(s), nausea or vomiting Review of Systems 2 Const: Reports: fatigue and malaise; Denies: fever(s), chills, body aches or change in appetite ENMT: Denies: throat pain or dental pain Card: Denies: chest pain Resp: Denies: dyspnea GI: Reports: hematochezia; Denies: abdominal pain, nausea, vomiting or diarrhea : Denies: dysuria Musc: Denies: neck pain or back pain Skin/Breast: Denies: rash Neuro: Denies: headache(s) PFSH ED 2 PFSH: Medical History Hypertension Colitis Hypomagnesemia Normal anion gap metabolic acidosis Diarrhea Dehydration Acute renal failure Hemorrhoids Hypokalemia Diffuse large b-cell lymphoma, lymph nodes of head, face, 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 This occurred last night. On exam today no actual bleeding seen anywhere. Stitch from her vault suspension was again noted today on exam. No granulation tissue was noted on exam. However, due to this intermittent reporting of bleeding, I went ahead and removed the stitch. On removal, the stitch appeared to not be attached to anything other than the vaginal wall. Patient still had a urethral caruncle noted with a small spot adjacent to it which is suspicious for possible bleeding from that area. With her being on the Xarelto, she may have bled from either the caruncle or from the stitch in the vagina. Questions were answered. Follow-up as needed. Surgical History History of endoscopy 08/2022 - Dr. Blanton at [facility]. S/P lumpectomy, right breast (01/27/20) H/O excision of mass H/O colonoscopy 2013 H/O esophagogastroduodenoscopy 2018 History of laparotomy (~1996) left ovarian cystectomy Hx of hysterectomy (~04/08/14) with vaginal repair------- TVH, LSO, Uterosacral ligament suspension, Anterior vaginal repair, Perineorrhaphy, Single incision suburethral sling, Cystoscopy, Lysis of bowel adhesions. 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 Performed by Dr. Remi Musa at [facility] in [place], [place]. Surgical findings: Third degree cystocele, second to third degree uterine prolapse, adhesions of the sigmoid to the left fundal portion of the uterus and to the left ovary, left ovarian cyst present. History of surgery on right wrist (~12/2010) Hx of cholecystectomy (~02/2005) Laparoscopic. Performed by Dr. Blanton at [facility] in [place], [place]. History of bunionectomy (~2001) left H/O ovarian cystectomy (~1996) Left-- Laparotomy Hx of breast biopsy (~1993) 1993-- 1 cyst removed from left breast and 2 cysts removed from right breast. All pathologies were benign. History of tonsillectomy and adenoidectomy (~1951) Family History Grandfather Diabetes Maternal Mother Breast cancer dx at age 45 Denies family history of Colon cancer Ovarian cancer Heart disease Hypercholesteremia Anesthesia complication Bleeding disorder Hypertension Uterine cancer Thyroid disease Stroke Social History Smoking and tobacco/nicotine status: never used tobacco/nicotine Physical Exam 2 Const: COMMON NORMALS: patient oriented x3 GENERAL APPEARANCE: ill appearing HENMT: COMMON NORMALS: normocephalic and atraumatic HEAD & SCALP: n ormocephalic and atraumatic Eye: COMMON NORMALS: Equal, round and reactive pupils present and EOMs intact bilaterally PUPIL: Yes Equal, round and reactive pupils present Neck/C-Spine: COMMON NORMALS: full ROM and supple Chest: COMMONS NORMALS: normal inspection of the chest and normal palpation of entire chest wall Resp: COMMON NORMALS: normal respiratory effort, No retractions, No use of accessory muscles and clear to auscultation bilaterally AUSCULTATION: clear to auscultation bilaterally Cardio: COMMON NORMALS: regular rate, regular rhythm and No murmurs present (Cardio) RATE: regular rate RHYTHM: regular rhythm GI: COMMON NORMALS: Normal to inspection, nondistended, normoactive bowel sounds present, Soft to palpation, non-tender and no masses PALPATION: Yes Soft to palpation Extremity: COMMON NORMALS: normal to inspection and full ROM Neuro: COMMON NORMALS: patient oriented x3, moves all extremities and no focal motor deficits Psych: COMMON NORMALS: mental status grossly normal, Normal thought process present and cooperative THOUGHT PROCESS: Normal thought process present Skin: COMMON NORMALS: no rashes or lesions noted and no wounds GENERAL SKIN EXAM: no rashes or lesions noted Course 2 Vital Signs: Vital signs: Vital Signs Temperature 97.7 F 12/07/23 12:51 Pulse Rate 75 12/07/23 19:00 Respiratory Rate 18 12/07/23 19:00 Blood Pressure 123/69 12/07/23 19:00 Pulse Oximetry 99 12/07/23 19:00 Oxygen Delivery Me thod Room Air 12/07/23 18:45 MDM - Weakness Medical Decision Making Patient presents here originally with hypotension she had some dehydration her blood pressure is much improved after IV fluids I did offer admission she states she feels much improved like to go home she does have a UTI she has no signs of sepsis lactate was normal did give her antibiotics she is to follow-up PCP return if worsening she understands agrees plan Medical Records I reviewed the patient's medical records. Lab Data I reviewed the patient's lab results. 12/07/23 13:10 12/07/23 13:10 Radiology Impressions Chest X-Ray 12/07/23 13:07 IMPRESSION: 1. Negative chest. Laboratory Results WBC 8.47 10^3/uL (3.29-11.43) 12/07/23 13:10 RBC 2.83 10^6/uL (3.85-5.65) L 12/07/23 13:10 Hgb 8.60 g/dL (11.27-16.99) L 12/07/23 13:10 Hct 28.4 % (36-47) L 12/07/23 13:10 MCV 100.4 fl (85-98) H 12/07/23 13:10 MCH 30.4 pg (27-33) 12/07/23 13:10 MCHC 30.3 g/dL (30-55) 12/07/23 13:10 RDW 14.5 % (12.1-15.1) 12/07/23 13:10 Plt Count 266 10^3/cmm (157-399) 12/07/23 13:10 MPV 10.1 fL (7.4-10.4) 12/07/23 13:10 Neut % (Auto) 67.3 % 12/07/23 13:10 Lymph % (Auto) 19.8 % 12/07/23 13:10 [place] % (Auto) 7.6 % 12/07/23 13:10 Eos % (Auto) 4.6 % 12/07/23 13:10 Baso % (Auto) 0.2 % 12/07/23 13:10 Neut # (Auto) 5.70 10^3/uL (1.8-7.7) 12/07/23 13:10 Lymph # (Auto) 1.7 10^3/uL (0.8-4.8) 12/07/23 13:10 [place] # (Auto) 0.6 10^3/uL (0.2-0.9) 12/07/23 13:10 Eos # (Auto) 0.4 10^3/uL (0.0-0.8) 12/07/23 13:10 Baso # (Auto) 0.0 10^3/uL (0.0-0.1) 12/07/23 13:10 Nucleated RBC % (auto) 0 % 12/07/23 13:10 Nucleated RBCs # 0.0 /100WBC 12/07/23 13:10 PT 21.20 SECONDS (12.1-14.9) H 12/07/23 13:10 INR 1.76 (0.8-1.2) H 12/07/23 13:10 Sodium 138 mmol/L (136-145) 12/07/23 13:10 Potassium 4.1 mmol/L (3.5-5.1) 12/07/23 13:10 Chloride 114 mmol/L (98-107) H 12/07/23 13:10 Carbon Dioxide 16 mmol/L (22-29) L 12/07/23 13:10 Anion Gap 12.1 (5-19) 12/07/23 13:10 BUN 20 mg/dL (8-23) 12/07/23 13:10 Creatinine 1.4 mg/dL (0.5-0.9) H 12/07/23 13:10 GFR Calculation Not Reportable 12/07/23 13:10 Glucose 111 mg/dL (65-115) 12/07/23 13:10 Calculated Osmolality 289 mOsm/kg (285-295) 12/07/23 13:10 Lactic Acid 2.0 mmol/L (0.5-2.2) 12/07/23 13:10 Calcium 7.7 mg/dL (8.5-10.5) L 12/07/23 13:10 Total Bilirubin 0.4 mg/dL (0.15-1.2) 12/07/23 13:10 AST 19 U/L (0-32) 12/07/23 13:10 ALT 10 U/L (0-33) 12/07/23 13:10 Alkaline Phosphatase 102 U/L (35-105) 12/07/23 13:10 Total Protein 4.9 g/dL (6.6-8.7) L 12/07/23 13:10 Albumin 3.0 g/dL (3.5-5.2) L 12/07/23 13:10 Globulin 1.9 g/dL (1.3-4.6) 12/07/23 13:10 TSH 1.56 uIU/mL (0.27-4.20) 12/07/23 13:10 Urine Color Yellow (Yellow) 12/07/23 17:16 Urine Appearance Cloudy (CLEAR) A 12/07/23 17:16 Urine pH 5.5 (5-7) 12/07/23 17:16 Ur Specific [place] 1.007 (1.005-1.030) 12/07/23 17:16 Urine Protein Trace (Negative) A 12/07/23 17:16 Urine Glucose (UA) Negative (Normal) 12/07/23 17:16 Urine Ketones Negative (Negative) 12/07/23 17:16 Urine Blood 3+ (Negative) A 12/07/23 17:16 Urine Nitrate Negative (Negative) 12/07/23 17:16 Urine Bilirubin Negative (Negative) 12/07/23 17:16 Urine Urobilinogen 0.2 mg/dL (Negative) 12/07/23 17:16 Ur Leukocyte Esterase 3+ (Negative) A 12/07/23 17:16 Urine RBC 11-20 /hpf (0-2) H 12/07/23 17:16 Urine WBC >100 /hpf (0-5) H 12/07/23 17:16 Ur Squamous Epith Cells 0-5 /hpf (0-5) 12/07/23 17:16 Amorphous Sediment Not Reportable 12/07/23 17:16 Urine Bacteria 4+ /hpf (NONE) H 12/07/23 17:16 Hyaline Casts 13.22 /lpf 12/07/23 17:16 Blood Type A Negative 12/07/23 13:10 Rho(D) Type Rh negative 12/07/23 13:10 Antibody Screen Negative 12/07/23 13:10 All radiology interpretation(s) finalized by discharge EKG Data EKG 1: I personally reviewed and interpreted this EKG as follows: EKG interpretation date: 12/07/23 EKG interpretation time: 14:03 Interpretation: nsr hr [address] elevation qrs 90 qtc 415 Discharge Plan Discharge Patient Disposition: Home Clinical Impression: Acute cystitis, Dehydration Condition: Stable Prescriptions: New cephalexin 500 mg capsule 500 mg PO TID 7 Days Qty: 21 0RF No Action Women's 50 Plus Multivitamin 400 mcg-500 mg calcium-20 mcg tablet 1 tab PO DAILY dicyclomine 20 mg tablet 20 mg PO BID PRN (Reason: abdominal cramping) Qty: 60 2RF promethazine-codeine 6.25-10 mg/5 mL syrup 5 ml PO Q6H PRN (Reason: cough) Qty: 240 0RF levothyroxine 125 mcg tablet 125 mcg PO DAILY Qty: 90 3RF ondansetron 4 mg tablet,disintegrating See Rx Instructions .ROUTE .COMPLEX Qty: 60 1RF Dose Instruction: dissolve ONE TABLET UNDER THE TONGUE EVERY 8 HOURS NEEDED FOR nausea AND vomiting Rx Instructions: dissolve ONE TABLET UNDER THE TONGUE EVERY 8 HOURS NEEDED FOR nausea AND vomiting duloxetine 30 mg capsule,delayed release(DR/EC) 30 mg PO DAILY Qty: 30 4RF cholestyramine (with sugar) 4 gram powder See Rx Instructions .ROUTE .COMPLEX Qty: 378 3RF Dose Instruction: take TWO grams BY MOUTH TWICE DAILY with A meal; AVOID other meds WITHIN one hour BEFORE OR 4-6 hours AFTER DOSE Rx Instructions: take TWO grams BY MOUTH TWICE DAILY with A meal; AVOID other meds WITHIN one hour BEFORE OR 4-6 hours AFTER DOSE hydrocortisone 2.5 % cream with perineal applicator See Rx Instructions .ROUTE .COMPLEX Qty: 30 3RF Dose Instruction: Apply rectally TWICE DAILY NEEDED FOR HEMORRHOIDS Rx Instructions: Apply rectally TWICE DAILY NEEDED FOR HEMORRHOIDS potassium chloride 10 mEq capsule, extended release 20 meq PO BID Qty: 120 5RF diclofenac sodium 75 mg tablet,delayed release (DR/EC) See Rx Instructions .ROUTE .COMPLEX Qty: 30 2RF Dose Instruction: TAKE ONE TABLET BY MOUTH EVERY DAY NEEDED FOR PAIN Rx Instructions: TAKE ONE TABLET BY MOUTH EVERY DAY NEEDED FOR PAIN metoprolol tartrate 25 mg tablet 25 mg PO DAILY Qty: 90 0RF pregabalin 150 mg capsule 150 mg PO DAILY Qty: 60 5RF hydrocodone-acetaminophen 7.5-325 mg tablet 1 tab PO BID PRN (Reason: pain) 30 Days Qty: 60 0RF promethazine 25 mg tablet 25 mg PO Q8H PRN (Reason: Nausea) sodium bicarbonate 650 mg tablet 650 mg PO DAILY Qty: 7 0RF loperamide [Imodium A-D] 2 mg capsule 2 mg PO Q8H PRN (Reason: loose stool) Qty: 14 0RF Rx Instructions: administer after each loose stool until symptoms controlled; do not exceed 8 mg per 24 hrs triamcinolone acetonide 0.1 % cream 1 applic topical DAILY PRN (Reason: Skin Irritation) pantoprazole 40 mg tablet,delayed release (DR/EC) 40 mg PO DAILY Discharge Orders: Discharge ED (Routine); Ordered 12/07/23 Ordered By: Louann Dietz Referrals: Torin Sandhu MD [Primary Care Provider] - 4-7 days Discharge Diet: Advance as tolerated Discharge Activity: Resume usual activity Patient Instructions: Dehydration (ED), Urinary Tract Infection in Women (ED) Coding Level of Care Code ED Roving Technician for Chg Fwd Related Data Home Medications Medication Instructions Recorded Confirmed qkauygom-nwt-nttkl ac 400 1 tab PO DAILY 04/09/19 12/07/23 mcg-calcium carb 500 mg-vit K1 20 mcg tablet (Women's 50 Plus Multivitamin) triamcinolone acetonide 0.1 % 1 applic topical DAILY PRN Skin 06/30/23 12/07/23 topical cream Irritation promethazine 25 mg tablet 25 mg PO Q8H PRN Nausea 09/05/23 12/07/23 pantoprazole 40 mg tablet,delayed 40 mg PO DAILY 12/07/23 12/07/23 release Previous Rx's Medication Instructions Recorded ondansetron 4 mg disintegrating See Rx Instructions .Route 08/28/23 tablet .COMPLEX #60 ea duloxetine 30 mg capsule,delayed 30 mg PO DAILY #30 caps 09/05/23 release loperamide 2 mg capsule (Imodium 2 mg PO Q8H PRN loose stool #14 09/08/23 A-D) caps sodium bicarbonate 650 mg tablet 650 mg PO DAILY #7 tabs 09/08/23 cholestyramine (with sugar) 4 gram See Rx Instructions .Route 09/18/23 oral powder .COMPLEX #378 grams dicyclomine 20 mg tablet 20 mg PO BID PRN abdominal 09/18/23 cramping #60 tabs levothyroxine 125 mcg tablet 125 mcg PO DAILY #90 tabs 09/18/23 promethazine 6.25 mg-codeine 10 5 ml PO Q6H PRN cough #240 mL 09/18/23 mg/5 mL syrup hydrocortisone 2.5 % topical cream See Rx Instructions .Route 10/04/23 with perineal applicator .COMPLEX #30 grams potassium chloride 10 mEq 20 meq (2 x 10 mEq) PO BID #120 10/16/23 capsule,extended release caps diclofenac sodium 75 mg See Rx Instructions .Route 11/21/23 tablet,delayed release .COMPLEX #30 tabs metoprolol tartrate 25 mg tablet 25 mg PO DAILY #90 tabs 11/27/23 pregabalin 150 mg capsule 150 mg PO DAILY #60 caps 11/27/23 hydrocodone 7.5 mg-acetaminophen 1 tab PO BID PRN pain 30 days #60 12/05/23 325 mg tablet tabs cephalexin 500 mg capsule 500 mg PO TID 7 days #21 caps 12/07/23 Allergies Allergy/AdvReac Type Severity Reaction Status Date / Time clindamycin Allergy chest pain Verified 12/07/23 11:41 Penicillins Allergy rash Verified 12/07/23 11:41
[2023-12-07 13:28] LABS: Basophils % 0.2 %; Eosinophils # 0.4 10^3/uL (0.0-0.8); Eosinophils % 4.6 %; Hematocrit 28.4 % (36-47); Lymphocytes # 1.7 10^3/uL (0.8-4.8); Lymphocytes % 19.8 %; Mean Corpuscular HGB Conc 30.3 g/dL (30-55); Mean Corpuscular Hemoglobin 30.4 pg (27-33); Mean Corpuscular Volume 100.4 fl (85-98); Mean Platelet Volume 10.1 fL (7.4-10.4); Monocytes # 0.6 10^3/uL (0.2-0.9); Monocytes % 7.6 %; Neutrophils % 67.3 %; Nucleated Red Blood Cells % 0 %; Platelet Count 266 10^3/cmm (157-399); Red Blood Count 2.83 10^6/uL (3.85-5.65); Red Cell Distribution Width 14.5 % (12.1-15.1); White Blood Count 8.47 10^3/uL (3.29-11.43)
[2023-12-07 13:44] LABS: INR 1.76 (0.8-1.2)
[2023-12-07 14:02] LABS: Alanine Aminotransferase 10 U/L (0-33); Alkaline Phosphatase 102 U/L (35-105); Anion Gap 12.1 (5-19); Aspartate Amino Transferase 19 U/L (0-32); Blood Urea Nitrogen 20 mg/dL (8-23); Calcium 7.7 mg/dL (8.5-10.5); Carbon Dioxide 16 mmol/L (22-29); Chloride 114 mmol/L (98-107); Creatinine Clr Calc Pharmacy 34.4432; Globulin 1.9 g/dL (1.3-4.6); Glucose 111 mg/dL (65-115); Osmolality Calculated 289 mOsm/kg (285-295); Potassium 4.1 mmol/L (3.5-5.1); Sodium 138 mmol/L (136-145); Thyroid Stimulating Hormone 1.56 uIU/mL (0.27-4.20); Total Bilirubin 0.4 mg/dL (0.15-1.2); Total Protein 4.9 g/dL (6.6-8.7)
--- NOTE | 2023-12-07 14:03 | ECG_ITS ---
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 Measurements Intervals [place] Rate: 65 P: 5 OK: 155 QRS: -11 QRSD: 90 T: 9 QT: 403 QTc: 421 Interpretive Statements SINUS RHYTHM LOW QRS VOLTAGE IN PRECORDIAL LEADS [QRS DEFLECTION < 1.0 mV IN CHEST LEADS] POSSIBLE ANTERIOR MYOCARDIAL INFARCTION , PROBABLY OLD [30 ms Q WAVE IN V3/V4, OR R < 0.2 mV IN V4] Compared to ECG 09/04/2023 13:21:51 Low QRS voltage now present Sinus tachycardia no longer present Indeterminate axis no longer present Myocardial infarct finding still present Electronically Signed On 12-07-2023 18:18:24 CDT by Mack Gudino M.D. [id number]
[2023-12-07 17:49] LABS: Bilirubin Urine Negative (Negative); Blood Urine 3+ (Negative); Glucose Urine UA Negative (Normal); Ketones Urine Negative (Negative); Leukocyte Esterase Urine 3+ (Negative); Nitrate Urine Negative (Negative); Protein Urine Trace (Negative); Specific Gravity, Urine 1.007 (1.005-1.030); Urine Appearance Cloudy (CLEAR); Urine Color Yellow (Yellow); Urobilinogen Urine 0.2 mg/dL (Negative); pH Urine 5.5 (5-7)
[2023-12-07 17:54] LABS: Add Urine Microscopic? YES; Bacteria Urine 4+ /hpf; Hyaline Casts Urine 13.22 /lpf; Squamous Epithelial Cell Urine 0-5 /hpf (0-5); WBC Urine >100 /hpf (0-5)
[2023-12-07 18:27] LABS: Add Urine Culture? Yes; UA Slide Review UA Slide Review Perf
[2023-12-07] MEDS: cefTRIAXone 1,000 mg SDV 1000 MG IVP (18:45)
== END 2023-12-07 19:00 | disposition home or self-care (01) ==
PROVIDERS: Emergency Provider Emergency Medicine; PCP Family Medicine
DX: N30.00 Acute cystitis without hematuria (principal); E86.0 Dehydration; I10 Essential (primary) hypertension; Z85.72 Personal history of non-Hodgkin lymphomas; Z85.3 Personal history of malignant neoplasm of breast; Z87.440 Personal history of urinary (tract) infections
CPT/HCPCS: 36415; 71045; 80053; 81001; 83605; 84443; 85025; 85610; 86850; 86900; 87040; 87077; 87086; 87186; 93005; 96374; 99285; J0696; J7030

== ENCOUNTER 2023-12-15 13:00 | Outpatient (CLI) | payer MEDICARE, SELFPAY ==
--- NOTE | 2023-12-15 13:14 | MRR_ITS ---
PROCEDURE INFORMATION: Exam: MR Abdomen Without Contrast Exam date and time: 12/15/2023 1:37 PM Age: 78 years old Clinical indication: Abnormal findings; Abnormal radiologic finding of the abdomen; Prior surgery; Surgery date: 6+ months; Surgery type: Gb; Patient HX: HX of on hodgkins lymphoma, breast cancer; Additional info: Left renal mass seen on CT, renal protocol TECHNIQUE: Imaging protocol: Magnetic resonance imaging of the abdomen without contrast. COMPARISON: CT abdomen pelvis w con* [id number] 09/07/2023 3:32 PM FINDINGS: Liver: No mass. Gallbladder and biliary ducts: The gallbladder has been resected. Pancreas: Unremarkable. No ductal dilation. Spleen: Unremarkable. No splenomegaly. Adrenal glands: Unremarkable. No mass. Kidneys: A 9.7 cm simple cyst involves the right kidney. Stomach and bowel: Visualized stomach and intestines are unremarkable. Intraperitoneal space: No free fluid. Vasculature: No abdominal aortic aneurysm. Lymph nodes: No enlarged nodes. Bones/joints: Unremarkable. No suspicious lesions. Soft tissues: Unremarkable. MR/MR abdomen wo/w con* [id number] IMPRESSION: 1. I see no left renal abnormality. I favor the abnormality seen on CT scan to represent pyelonephritis which has now resolved. 2. Large right renal cyst again noted COMMENTS: Consistent with the [employer]'s Incidental Findings Committee white paper (J Am Tiffanie Radiol 2018): Any incidental renal lesion less than 1 cm or classified as too small to characterize, or any incidental cystic renal lesion characterized as simple-appearing, is likely benign. No follow-up imaging is recommended for these lesions per consensus recommendations based on imaging criteria.
[2023-12-15] MEDS: gadobenate dimeglumine 20 mL vial 16 ML IV (14:14)
== END 2023-12-15 13:08 | disposition home or self-care (01) ==
PROVIDERS: PCP Family Medicine; Visit Provider Nurse Practitioner Family
DX: N28.1 Cyst of kidney, acquired (principal); Z90.49 Acquired absence of other specified parts of digestive tract
CPT/HCPCS: 74183

== ENCOUNTER 2024-01-09 09:56 | Day surgery (SDC) | payer MEDICARE, SELFPAY ==
[2024-01-09 10:15] VITALS: BP 118/72; PULSE 102; RESP 16; TEMP 36.2; O2SAT 100
[2024-01-09] MEDS: sodium chloride 0.9% 1,000 ML 30 ML IV (10:20)
--- NOTE | 2024-01-09 10:41 | ANES.PREANE2 ---
Pre-Anesthetic Assessment Height/Weight: Height 1.68 m Weight 74.843 kg Temp Pulse Resp BP Pulse Ox O2 Del Method 97.2 F L 102 H 16 118/72 100 Room Air 01/09/24 10:15 01/09/24 10:15 01/09/24 10:15 01/09/24 10:15 01/09/24 10:15 01/09/24 10:15 Operation Date: 01/09/24 10:45 Proposed Procedures p Colonoscopy- 59694, K64.9(Not Applicable) - Mati Snyder MD Familial anesthetic complications: None Was Beta Jose taken within 24 hours: N/A Was Clonidine taken within 24 hours: N/A Last intake: Intake Last Liquid Date 01/08/24 Last Liquid Time 20:00 Last Solid Date 01/08/24 Last Solid Time 09:00 Social No alcohol and No tobacco Exam alert, oriented x 3, clear to auscultation bilaterally and regular rate & rhythm Airway Mallampati: Class II Dentition: false CV/HEM Deep Vein Thrombosis and Hypertension HX ARF GI Gastroesophageal Reflux Disease Metabolic Thyroid Disease [facility] [place] Hx B cell lymphoma Anesthetic Plan ASA status: 3 Anesthesia: MAC Risk of > 500 ml blood loss (7ml/kg in children): No Medications/Allergies Home Medications Medication Instructions Recorded Confirmed Last Taken Type tsnriujl-jhd-uxqys ac 400 1 tab PO DAILY 04/09/19 01/05/24 01/08/24 History mcg-calcium carb 500 mg-vit K1 20 mcg tablet (Women's 50 Plus Multivitamin) triamcinolone acetonide 0.1 % 1 applic topical DAILY PRN Skin 06/30/23 01/04/24 01/08/24 History topical cream Irritation ondansetron 4 mg disintegrating See Rx Instructions .Route 08/28/23 01/05/24 01/08/24 Rx tablet .COMPLEX #60 ea duloxetine 30 mg capsule,delayed 30 mg PO DAILY #30 caps 09/05/23 01/05/24 01/08/24 Rx release promethazine 25 mg tablet 25 mg PO Q8H PRN Nausea 09/05/23 01/05/24 01/08/24 History loperamide 2 mg capsule (Imodium 2 mg PO Q8H PRN loose stool #14 09/08/23 01/05/24 01/08/24 Rx A-D) caps cholestyramine (with sugar) 4 gram See Rx Instructions .Route 09/18/23 01/05/24 01/08/24 Rx oral powder .COMPLEX #378 grams dicyclomine 20 mg tablet 20 mg PO BID PRN abdominal 09/18/23 01/05/24 01/08/24 Rx cramping #60 tabs levothyroxine 125 mcg tablet 125 mcg PO DAILY #90 tabs 09/18/23 01/05/24 01/09/24 Rx hydrocortisone 2.5 % topical cream See Rx Instructions .Route 10/04/23 01/04/24 01/08/24 Rx with perineal applicator .COMPLEX #30 grams potassium chloride 10 mEq 20 meq (2 x 10 mEq) PO BID #120 10/16/23 01/05/24 01/08/24 Rx capsule,extended release caps diclofenac sodium 75 mg See Rx Instructions .Route 11/21/23 01/05/24 01/08/24 Rx tablet,delayed release .COMPLEX #30 tabs metoprolol tartrate 25 mg tablet 25 mg PO DAILY #90 tabs 11/27/23 01/05/24 01/09/24 Rx pregabalin 150 mg capsule 150 mg PO DAILY #60 caps 11/27/23 01/05/24 01/08/24 Rx hydrocodone 7.5 mg-acetaminophen 1 tab PO BID PRN pain 30 days #60 12/05/23 01/05/24 01/08/24 Rx 325 mg tablet tabs pantoprazole 40 mg tablet,delayed 40 mg PO DAILY 12/07/23 01/05/24 01/08/24 History release lidocaine 5 % topical ointment 1 applic topical DAILY #50 grams 12/18/23 01/04/24 01/08/24 Rx rivaroxaban 10 mg tablet (Xarelto) 10 mg PO DAILY 01/04/24 01/05/24 01/03/24 History Allergies Allergy/AdvReac Type Severity Reaction Status Date / Time clindamycin Allergy chest pain Verified 01/05/24 11:52 Penicillins Allergy rash Verified 01/05/24 11:52 Current Medications Generic Name Dose Route Start Last Admin Trade Name Freq PRN Reason Stop Dose Admin Sodium Chloride 1,000 mls @ 30 mls/hr 01/09/24 10:00 01/09/24 10:20 Sodium Chloride 0.9% IV 30 mls/hr .Q24H MONA Administration PFSH Anesthesia Medical History Hypertension Colitis Hypomagnesemia Normal anion gap metabolic acidosis Diarrhea Dehydration Acute renal failure Hemorrhoids Hypokalemia Diffuse large b-cell lymphoma, lymph nodes of head, face, 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 This occurred last night. On exam today no actual bleeding seen anywhere. Stitch from her vault suspension was again noted today on exam. No granulation tissue was noted on exam. However, due to this intermittent reporting of bleeding, I went ahead and removed the stitch. On removal, the stitch appeared to not be attached to anything other than the vaginal wall. Patient still had a urethral caruncle noted with a small spot adjacent to it which is suspicious for possible bleeding from that area. With her being on the Xarelto, she may have bled from either the caruncle or from the stitch in the vagina. Questions were answered. Follow-up as needed. Surgical History History of endoscopy 08/2022 - Dr. Blanton at [facility]. S/P lumpectomy, right breast (01/27/20) H/O excision of mass H/O colonoscopy 2013 H/O esophagogastroduodenoscopy 2019 History of laparotomy (~1996) left ovarian cystectomy Hx of hysterectomy (~04/08/14) with vaginal repair------- TVH, LSO, Uterosacral ligament suspension, Anterior vaginal repair, Perineorrhaphy, Single incision suburethral sling, Cystoscopy, Lysis of bowel adhesions. 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 Performed by Dr. Remi Musa at [facility] in [place], [place]. Surgical findings: Third degree cystocele, second to third degree uterine prolapse, adhesions of the sigmoid to the left fundal portion of the uterus and to the left ovary, left ovarian cyst present. History of surgery on right wrist (~12/2010) Hx of cholecystectomy (~02/2005) Laparoscopic. Performed by Dr. Blanton at [facility] in [place], [place]. History of bunionectomy (~2001) left H/O ovarian cystectomy (~1996) Left-- Laparotomy Hx of breast biopsy (~1993) 1993-- 1 cyst removed from left breast and 2 cysts removed from right breast. All pathologies were benign. History of tonsillectomy and adenoidectomy (~1951) Family History Grandfather Diabetes Maternal Mother Breast cancer dx at age 45 Denies family history of Colon cancer Ovarian cancer Heart disease Hypercholesteremia Anesthesia complication Bleeding disorder Hypertension Uterine cancer Thyroid disease Stroke Social History Smoking and tobacco/nicotine status: never used tobacco/nicotine Data Anesthesia Cardiac Studies: Echocardiogram 03/23/21 Holter Monitor 11/23/23
--- NOTE | 2024-01-09 10:56 | W.PM.OPSFHP ---
Same Day Surgery H&P Indication for Procedure/HPI DATE OF PROCEDURE: January 09, 2024 CHIEF COMPLAINT/INDICATIONFOR SURGICAL PROCEDURE: Hematochezia PREOP DIAGNOSIS: Hematochezia PLANNED PROCEDURE: Operation Date: 01/09/24 10:45 Proposed Procedures p Colonoscopy- 10733, K64.9(Not Applicable) - Mati Snyder MD Medications/Allergies* Home Medications Medication Instructions Recorded Confirmed Type nhllywns-wxl-olqcz ac 400 1 tab PO DAILY 04/09/19 01/05/24 History mcg-calcium carb 500 mg-vit K1 20 mcg tablet (Women's 50 Plus Multivitamin) triamcinolone acetonide 0.1 % 1 applic topical DAILY PRN Skin 06/30/23 01/04/24 History topical cream Irritation promethazine 25 mg tablet 25 mg PO Q8H PRN Nausea 09/05/23 01/05/24 History pantoprazole 40 mg tablet,delayed 40 mg PO DAILY 12/07/23 01/05/24 History release rivaroxaban 10 mg tablet (Xarelto) 10 mg PO DAILY 01/04/24 01/05/24 History Allergies/Adverse Reactions Allergy/AdvReac Type Severity Reaction Status Date / Time clindamycin Allergy chest pain Verified 01/05/24 11:52 Penicillins Allergy rash Verified 01/05/24 11:52 Current Medications: Generic Name Dose Route Start Last Admin Trade Name Freq PRN Reason Stop Dose Admin Sodium Chloride 1,000 mls @ 30 mls/hr 01/09/24 10:00 01/09/24 10:20 Sodium Chloride 0.9% IV 30 mls/hr .Q24H MONA Administration Pertinent History/Comorbid Conditions* Medical History (Updated 12/15/23 @ 00:01 by LALITHA Chatterjee) Hypertension Colitis Hypomagnesemia Normal anion gap metabolic acidosis Diarrhea Dehydration Acute renal failure Hemorrhoids Hypokalemia Diffuse large b-cell lymphoma, lymph nodes of head, face, 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 This occurred last night. On exam today no actual bleeding seen anywhere. Stitch from her vault suspension was again noted today on exam. No granulation tissue was noted on exam. However, due to this intermittent reporting of bleeding, I went ahead and removed the stitch. On removal, the stitch appeared to not be attached to anything other than the vaginal wall. Patient still had a urethral caruncle noted with a small spot adjacent to it which is suspicious for possible bleeding from that area. With her being on the Xarelto, she may have bled from either the caruncle or from the stitch in the vagina. Questions were answered. Follow-up as needed. Surgical History (Updated 09/09/23 @ 00:01 by LALITHA Chatterjee) History of endoscopy 08/2022 - Dr. Blanton at [facility]. S/P lumpectomy, right breast (01/27/20) H/O excision of mass H/O colonoscopy 2013 H/O esophagogastroduodenoscopy 2018 History of laparotomy (~1996) left ovarian cystectomy Hx of hysterectomy (~04/08/14) with vaginal repair------- TVH, LSO, Uterosacral ligament suspension, Anterior vaginal repair, Perineorrhaphy, Single incision suburethral sling, Cystoscopy, Lysis of bowel adhesions. 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 Performed by Dr. Remi Musa at [facility] in [place], [place]. Surgical findings: Third degree cystocele, second to third degree uterine prolapse, adhesions of the sigmoid to the left fundal portion of the uterus and to the left ovary, left ovarian cyst present. History of surgery on right wrist (~12/2010) Hx of cholecystectomy (~02/2005) Laparoscopic. Performed by Dr. Blanton at [facility] in [place], [place]. History of bunionectomy (~2001) left H/O ovarian cystectomy (~1996) Left-- Laparotomy Hx of breast biopsy (~1993) 1993-- 1 cyst removed from left breast and 2 cysts removed from right breast. All pathologies were benign. History of tonsillectomy and adenoidectomy (~1951) Family History (Updated 01/17/20 @ 14:36 by Viviana Lackey LPN) Diabetes Grandfather Maternal Breast cancer Mother dx at age 45 Denies family history of Colon cancer Ovarian cancer Heart disease Hypercholesteremia Anesthesia complication Bleeding disorder Hypertension Uterine cancer Thyroid disease Stroke Social History Smoking and tobacco/nicotine status: never used tobacco/nicotine Pertinent Exam Findings alert, oriented x 3, clear to auscultation bilaterally, regular rate & rhythm and procedure specific exam findings Abdomen soft, NT, ND Recommendations Surgery/Procedure today Coding Level of Care Code Acute Code for Chg Fwmike
[2024-01-09 11:48] VITALS: BP 78/44; PULSE 92; RESP 16; TEMP 36.2; O2SAT 100
[2024-01-09 11:56] VITALS: BP 94/52; PULSE 90; RESP 16; TEMP 36.2; O2SAT 99
--- NOTE | 2024-01-09 12:30 | ANE.PACU2 ---
Inpatient post-anesthesia follow up: Airway intact: Yes Vital signs: Temperature 97.2 F Pulse Rate 90 Respiratory Rate 16 Blood Pressure 94/52 Pulse Oximetry 99 Oxygen Delivery Me thod Room Air Oxygen Flow Rate Fraction of Inspir ed Oxygen Hydration adequate: Yes Nausea and vomiting: No Pain level: 1 Mental status: Baseline
== END 2024-01-09 12:33 | disposition home or self-care (01) ==
PROVIDERS: PCP Family Medicine; Visit Provider Student in an Organized Health Care Education/Training Program
PROC: 0DJD8ZZ Inspection of Lower Intestinal Tract, Via Natural or Artificial Opening Endoscopic (ICD-10-PCS; CPT 45378; principal; 2024-01-09 10:45)
DX: K92.1 Melena (principal); K64.3 Fourth degree hemorrhoids; K57.30 Diverticulosis of large intestine without perforation or abscess without bleeding; I10 Essential (primary) hypertension; F32.A Depression, unspecified; Z86.718 Personal history of other venous thrombosis and embolism; E03.9 Hypothyroidism, unspecified; Z85.3 Personal history of malignant neoplasm of breast; M19.90 Unspecified osteoarthritis, unspecified site; K21.9 Gastro-esophageal reflux disease without esophagitis
CPT/HCPCS: 45378; J2704; J3490; J7030

== ENCOUNTER 2024-03-18 13:18 | Oncology outpatient (recurring) (ONCR) | payer MEDICARE, SELFPAY ==
[2024-03-18 13:38] LABS: Basophils % 0.3 %; Eosinophils # 0.4 10^3/uL (0.0-0.8); Eosinophils % 5.7 %; Lymphocytes # 2.2 10^3/uL (0.8-4.8); Lymphocytes % 36.1 %; Mean Corpuscular HGB Conc 27.9 g/dL (30-55); Mean Corpuscular Hemoglobin 24.8 pg (27-33); Mean Corpuscular Volume 89.2 fl (85-98); Monocytes # 0.6 10^3/uL (0.2-0.9); Monocytes % 8.9 %; Neutrophils # 3.01 10^3/uL (1.8-7.7); Neutrophils % 48.7 %; Nucleated Red Blood Cells % 0 %; Platelet Count 244 10^3/cmm (157-399); Red Blood Count 3.14 10^6/uL (3.85-5.65); Red Cell Distribution Width 21.4 % (12.1-15.1); White Blood Count 6.18 10^3/uL (3.29-11.43)
[2024-03-18 14:01] LABS: Alanine Aminotransferase 22 U/L (0-33); Albumin Level 2.6 g/dL (3.5-5.2); Alkaline Phosphatase 181 U/L (35-105); Aspartate Amino Transferase 31 U/L (0-32); Blood Urea Nitrogen 27 mg/dL (8-23); Calcium 7.7 mg/dL (8.5-10.5); Carbon Dioxide 18 mmol/L (22-29); Chloride 110 mmol/L (98-107); Globulin 2.4 g/dL (1.3-4.6); Glucose 99 mg/dL (65-115); Lactate Dehydrogenase 289 U/L (135-214); Osmolality Calculated 301 mOsm/kg (285-295); Sodium 143 mmol/L (136-145); Total Bilirubin 0.4 mg/dL (0.15-1.2)
[2024-03-18 15:19] LABS: Ferritin 22 ng/mL (15-150); Iron 30 ug/dL (37-145); Percent Saturation 15.5 % (20-50); Total Iron Binding Capacity 193 mcg/dl; Unsaturated Iron Binding 163 ug/dL (112-347)
== END 2024-04-05 23:59 | disposition home or self-care (01) ==
PROVIDERS: Nurse Practitioner Family; PCP Family Medicine; Referring Provider Internal Medicine; Visit Provider Internal Medicine Medical Oncology
DX: C50.411 Malignant neoplasm of upper-outer quadrant of right female breast (principal); C83.31 Diffuse large B-cell lymphoma, lymph nodes of head, face, and neck; N28.89 Other specified disorders of kidney and ureter; D50.9 Iron deficiency anemia, unspecified
CPT/HCPCS: 36415; 80053; 82728; 83540; 83550; 83615; 85025; 99214

== ENCOUNTER 2024-04-30 13:35 | Oncology outpatient (recurring) (ONCR) | payer MEDICARE, SELFPAY ==
[2024-04-30 14:54] LABS: Basophils % 0.3 %; Eosinophils # 0.3 10^3/uL (0.0-0.8); Eosinophils % 3.9 %; Hematocrit 29.7 % (36-47); Lymphocytes # 1.5 10^3/uL (0.8-4.8); Lymphocytes % 22.4 %; Mean Corpuscular Hemoglobin 28.9 pg (27-33); Mean Corpuscular Volume 96.4 fl (85-98); Mean Platelet Volume 9.3 fL (7.4-10.4); Monocytes # 0.4 10^3/uL (0.2-0.9); Monocytes % 5.6 %; Neutrophils # 4.56 10^3/uL (1.8-7.7); Neutrophils % 67.5 %; Nucleated Red Blood Cells % 0 %; Platelet Count 248 10^3/cmm (157-399); Red Blood Count 3.08 10^6/uL (3.85-5.65); Red Cell Distribution Width 20.4 % (12.1-15.1); White Blood Count 6.75 10^3/uL (3.29-11.43)
[2024-04-30] MEDS: sodium chloride 0.9% 500 ML 999 ML IV (14:55)
[2024-04-30 15:00] VITALS: BP 124/78; PULSE 78; RESP 18; TEMP 36.6; O2SAT 99
[2024-04-30 15:31] LABS: Alanine Aminotransferase 19 U/L (0-33); Albumin Level 2.3 g/dL (3.5-5.2); Alkaline Phosphatase 159 U/L (35-105); Anion Gap 11.6 (5-19); Aspartate Amino Transferase 27 U/L (0-32); Blood Urea Nitrogen 23 mg/dL (8-23); Calcium 7.4 mg/dL (8.5-10.5); Carbon Dioxide 19 mmol/L (22-29); Chloride 115 mmol/L (98-107); Creatinine Clr Calc Pharmacy 38.3185; Ferritin 46 ng/mL (15-150); Globulin 2.2 g/dL (1.3-4.6); Glucose 88 mg/dL (65-115); Iron 49 ug/dL (37-145); Osmolality Calculated 295 mOsm/kg (285-295); Percent Saturation 30.2 % (20-50); Potassium 4.6 mmol/L (3.5-5.1); Sodium 141 mmol/L (136-145); Thyroid Stimulating Hormone 1.61 uIU/mL (0.27-4.20); Total Bilirubin 0.4 mg/dL (0.15-1.2); Total Iron Binding Capacity 162 mcg/dl; Total Protein 4.5 g/dL (6.6-8.7); Unsaturated Iron Binding 113 ug/dL (112-347); Vitamin B12 1237 pg/mL (232-1245)
[2024-04-30 16:20] VITALS: BP 121/81; PULSE 82; RESP 18; TEMP 36.6; O2SAT 98
== END 2024-05-03 23:59 | disposition home or self-care (01) ==
PROVIDERS: PCP Family Medicine; Referring Provider Internal Medicine; Visit Provider Internal Medicine Medical Oncology
DX: D50.9 Iron deficiency anemia, unspecified (principal); N28.89 Other specified disorders of kidney and ureter; Z85.3 Personal history of malignant neoplasm of breast; Z85.72 Personal history of non-Hodgkin lymphomas; I10 Essential (primary) hypertension; K64.8 Other hemorrhoids; R68.2 Dry mouth, unspecified; R13.10 Dysphagia, unspecified; K22.2 Esophageal obstruction; Z79.899 Other long term (current) drug therapy; Z92.3 Personal history of irradiation; Z92.21 Personal history of antineoplastic chemotherapy; Z92.23 Personal history of estrogen therapy
CPT/HCPCS: 80053; 82607; 82728; 82746; 83540; 83550; 84443; 85025; 96360; 99214; J7040

== ENCOUNTER 2024-05-27 18:06 | Inpatient (IN) | payer MEDICARE, SELFPAY ==
[2024-05-27] VITALS (16 sets, daily range): BP systolic 105–155; BP diastolic 60–90; PULSE 58–120; RESP 16–26; TEMP 36.6–36.9; O2SAT 93–100; BMI 31.4
--- NOTE | 2024-05-27 18:12 | ECG_ITS ---
[employer] Test Date: 2024-05-27 Pat Name: Lexy Chawla Department: Room: Gender: Female Nurse Practical: : 1945 Requested By: Louann Dietz Order Number: [id number] Zoya MD: Pearl Carty M.D. Measurements Intervals [place] Rate: 121 P: 0 OH: 125 QRS: -9 QRSD: 78 T: 120 QT: 339 QTc: 483 Interpretive Statements SINUS TACHYCARDIA WITH OCCASIONAL ECTOPIC PREMATURE COMPLEXES LOW QRS VOLTAGE IN PRECORDIAL LEADS [QRS DEFLECTION < 1.0 mV IN CHEST LEADS] POSSIBLE ANTERIOR MYOCARDIAL INFARCTION , PROBABLY OLD [30 ms Q WAVE IN V3/V4, OR R < 0.2 mV IN V4] POSSIBLE INFERIOR MYOCARDIAL INFARCTION , PROBABLY OLD [30 ms Q WAVE IN II/aVF] ABNORMAL RHYTHM ECG Compared to ECG 12/07/2023 14:03:54 Sinus rhythm no longer present Myocardial infarct finding still present Electronically Signed On 05-27-2024 20:56:09 CDT by Pearl Carty M.D. [email or web address]
--- NOTE | 2024-05-27 18:12 | CTR_ITS ---
PROCEDURE INFORMATION: Exam: CT Head Without Contrast Exam date and time: 05/27/2024 6:31 PM Age: 78 years old Clinical indication: Dizziness and speech disturbance; Slurred speech; Additional info: Slurred speech/dizzy TECHNIQUE: Imaging protocol: Computed tomography of the head without contrast. Radiation optimization: All CT scans at this facility use at least one of these dose optimization techniques: automated exposure control; mA and/or kV adjustment per patient size (includes targeted exams where dose is matched to clinical indication); or iterative reconstruction. COMPARISON: CT head wo con* [id number] 07/03/2023 6:52 PM RADIATION DOSE METRICS: Total DLP (mGy-cm): 1199.38 FINDINGS: Brain: Age-related brain parenchymal atrophy. Areas of hypoattenuation in the periventricular and subcortical deep white matter likely on the basis of chronic microvascular ischemic changes. No acute intra cranial hemorrhage. No mass effect or midline shift. No definitive CT evidence of acute territorial infarction. Cerebral ventricles: No ventriculomegaly. Paranasal sinuses: Visualized sinuses are unremarkable. No fluid levels. Mastoid air cells: Visualized mastoid air cells are well aerated. Bones: Intact calvarium. Soft tissues: Unremarkable. CT/CT head wo con* [id number] IMPRESSION: No acute intracranial process. Senescent changes. If there is continued clinical concern for an acute ischemic event then follow up with a brain MRI examination.
--- NOTE | 2024-05-27 18:12 | XRR_ITS ---
PROCEDURE INFORMATION: Exam: XR Chest Exam date and time: 05/27/2024 6:37 PM Age: 78 years old Clinical indication: Shortness of breath; Additional info: SOB TECHNIQUE: Imaging protocol: Radiologic exam of the chest. Views: 1 view. COMPARISON: CR XR chest 1V portable [id number] 12/07/2023 1:21 PM FINDINGS: Lungs: There are some retrocardiac opacities can reflect small effusion versus atelectasis and/or infiltrates. The remaining lungs are clear. Pleural spaces: No sizable right-sided pleural effusion. No pneumothorax. Heart/Mediastinum: Unremarkable. No cardiomegaly. Bones/joints: Unremarkable. XR/XR chest 1V portable [id number] IMPRESSION: As above.
[2024-05-27 18:24] LABS: Basophils % 0.3 %; Eosinophils # 0.1 10^3/uL (0.0-0.8); Eosinophils % 0.7 %; Hematocrit 30.3 % (36-47); Lymphocytes # 1.8 10^3/uL (0.8-4.8); Lymphocytes % 20.5 %; Mean Corpuscular Hemoglobin 29.7 pg (27-33); Mean Corpuscular Volume 102.4 fl (85-98); Monocytes # 0.6 10^3/uL (0.2-0.9); Monocytes % 6.5 %; Neutrophils # 6.17 10^3/uL (1.8-7.7); Neutrophils % 71.7 %; Nucleated Red Blood Cells % 0 %; Platelet Count 249 10^3/cmm (157-399); Red Blood Count 2.96 10^6/uL (3.85-5.65); Red Cell Distribution Width 19.2 % (12.1-15.1); White Blood Count 8.62 10^3/uL (3.29-11.43)
--- NOTE | 2024-05-27 18:33 | CTR_ITS ---
PROCEDURE INFORMATION: Exam: CTA Chest With Contrast Exam date and time: 05/27/2024 7:37 PM Age: 78 years old Clinical indication: Shortness of breath; Additional info: SOB TECHNIQUE: Imaging protocol: Computed tomographic angiography of the chest with contrast. Exam focused on the arteries. 3D rendering (Not supervised by radiologist): MIP and/or 3D reconstructed images were created by the technologist. Radiation optimization: All CT scans at this facility use at least one of these dose optimization techniques: automated exposure control; mA and/or kV adjustment per patient size (includes targeted exams where dose is matched to clinical indication); or iterative reconstruction. Contrast material: OMNI 350; Contrast volume: 59 ml; Contrast route: INTRAVENOUS (IV); COMPARISON: CT angio chest PE protcl [id number] 06/18/2018 4:08 PM RADIATION DOSE METRICS: Total DLP (mGy-cm): 263.42 FINDINGS: Pulmonary arteries: There is a mildly prominent main pulmonary artery trunk diameter which can be seen in the setting of pulmonary hypertension. Aorta: Thoracic aorta is nonaneurysmal. Lungs: Compressive atelectasis of the lung bases. Additional opacities at the left lower lobe may reflect infiltrates versus just plain atelectasis. Remaining lungs are clear. Pleural spaces: Moderate bilateral pleural effusions. Heart: Unremarkable. No cardiomegaly. No pericardial effusion. Esophagus: There is fluid up to the midthoracic esophagus. Mediastinal space: There is mediastinal shift to the left due to left hemithorax volume loss. Lymph nodes: Unremarkable. No enlarged lymph nodes. Diaphragm: Small hiatal hernia. Liver: Diffuse hepatic steatosis. Intraperitoneal space: Incompletely visualized ascites. Bones/joints: Unremarkable. No acute fracture. Soft tissues: Third spacing of fluid within the subcutaneous soft tissues related to anasarca. There are surgical clips in the right lateral chest wall. There is asymmetric soft tissue density in the left breast soft tissues including cutaneous thickening of the left breast. CT/CT angio chest PE protcl [id number] IMPRESSION: 1. No pulmonary embolism. 2. Moderate bilateral pleural effusions with adjacent atelectasis. Additional opacities in the left lung base can also represent infiltrates in the appropriate clinical setting. 3. Asymmetric nodular density in the left breast including overlying cutaneous thickening. Correlate with mammogram. 4. Mildly prominent main pulmonary artery trunk diameter which can be seen in the setting of pulmonary hypertension. 5. Anasarca. 6. Hepatic steatosis.
[2024-05-27 18:42] LABS: Troponin(5th) Baseline 22 ng/L (0-10)
--- NOTE | 2024-05-27 18:46 | W.ED.WEAKNES ---
HPI - Weakness General: Chief complaint: Weakness Stated complaint: WEAKNESS Time Seen by Provider: 05/27/24 18:09 Source: patient and EMS Mode of arrival: EMS Limitations: no limitations History of Present Illness: 70-year-old female states last 2 weeks she been having extreme dizziness along with some shortness of breath anytime she tries to ambulate she states she has had nausea as well she states she has had word finding difficulties is going on for 2 weeks as well she denies any focal weaknesses denies any headache denies any chest pain. Associated symptoms: Reports nausea; Denies chest pain, chills, fever(s), headache(s) or vomiting Review of Systems Const: Denies: fever(s), chills, body aches or change in appetite Eyes: Denies: blurry vision or eye discomfort ENMT: Denies: throat pain or dental pain Card: Denies: chest pain Resp: Reports: dyspnea GI: Reports: nausea; Denies: abdominal pain, vomiting or diarrhea Musc: Denies: neck pain or back pain Skin/Breast: Denies: rash Neuro: Reports: vertigo; Denies: headache(s) PFSH ED PFSH: Medical History Hypertension Colitis Hypomagnesemia Normal anion gap metabolic acidosis Diarrhea Dehydration Acute renal failure Hemorrhoids Hypokalemia Diffuse large b-cell lymphoma, lymph nodes of head, face, 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 This occurred last night. On exam today no actual bleeding seen anywhere. Stitch from her vault suspension was again noted today on exam. No granulation tissue was noted on exam. However, due to this intermittent reporting of bleeding, I went ahead and removed the stitch. On removal, the stitch appeared to not be attached to anything other than the vaginal wall. Patient still had a urethral caruncle noted with a small spot adjacent to it which is suspicious for possible bleeding from that area. With her being on the Xarelto, she may have bled from either the caruncle or from the stitch in the vagina. Questions were answered. Follow-up as needed. Surgical History History of endoscopy 08/2022 - Dr. Blanton at [facility]. S/P lumpectomy, right breast (01/27/20) H/O excision of mass H/O colonoscopy 2013 H/O esophagogastroduodenoscopy 2018 History of laparotomy (~1996) left ovarian cystectomy Hx of hysterectomy (~04/08/14) with vaginal repair------- TVH, LSO, Uterosacral ligament suspension, Anterior vaginal repair, Perineorrhaphy, Single incision suburethral sling, Cystoscopy, Lysis of bowel adhesions. 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 Performed by Dr. Remi Musa at [facility] in [place], [place]. Surgical findings: Third degree cystocele, second to third degree uterine prolapse, adhesions of the sigmoid to the left fundal portion of the uterus and to the left ovary, left ovarian cyst present. History of surgery on right wrist (~12/2010) Hx of cholecystectomy (~02/2005) Laparoscopic. Performed by Dr. Blanton at [facility] in [place], [place]. History of bunionectomy (~2001) left H/O ovarian cystectomy (~1996) Left-- Laparotomy Hx of breast biopsy (~1993) 1993-- 1 cyst removed from left breast and 2 cysts removed from right breast. All pathologies were benign. History of tonsillectomy and adenoidectomy (~195) Family History Grandfather Diabetes Maternal Mother Breast cancer dx at age 45 Denies family history of Colon cancer Ovarian cancer Heart disease Hypercholesteremia Anesthesia complication Bleeding disorder Hypertension Uterine cancer Thyroid disease Stroke Social History Smoking and tobacco/nicotine status: never used tobacco/nicotine Physical Exam Const: COMMON NORMALS: patient oriented x3 HENMT: COMMON NORMALS: normocephalic and atraumatic HEAD & SCALP: normocephalic and atraumatic Eye: COMMON NORMALS: Equal, round and reactive pupils present and EOMs intact bilaterally PUPIL: Yes Equal, round and reactive pupils present Neck/C-Spine: COMMON NORMALS: full ROM and supple Chest: COMMONS NORMALS: normal inspection of the chest and normal palpation of entire chest wall Resp: COMMON NORMALS: normal respiratory effort, No retractions, No use of accessory muscles and clear to auscultation bilaterally AUSCULTATION: clear to auscultation bilaterally Cardio: COMMON NORMALS: regular rate, regular rhythm and No murmurs present (Cardio) RATE: regular rate RHYTHM: regular rhythm GI: COMMON NORMALS: Normal to inspection, nondistended, normoactive bowel sounds present, Soft to palpation, non-tender and no masses PALPATION: Yes Soft to palpation Extremity: COMMON NORMALS: normal to inspection and full ROM Neuro: COMMON NORMALS: patient oriented x3 and moves all extremities MOTOR EXAM: 5/5 motor strength present throughout OTHER: slight aphasia, nystagmus when looking to left Psych: COMMON NORMALS: mental status grossly normal, Normal thought process present and cooperative THOUGHT PROCESS: Normal thought process present Skin: COMMON NORMALS: no rashes or lesions noted and no wounds GENERAL SKIN EXAM: no rashes or lesions noted Course Vital Signs: Vital signs: Vital Signs Temperature 97.8 F 05/27/24 18:23 Pulse Rate 117 H 05/27/24 19:52 Respiratory Rate 26 H 05/27/24 19:52 Blood Pressure 115/74 05/27/24 19:52 Pulse Oximetry 99 05/27/24 19:52 Oxygen Delivery Me thod Nasal Cannula 05/27/24 18:42 Oxygen Flow Rate 2 05/27/24 18:42 MDM - Weakness Medical Decision Making Patient presents here with exertional dyspnea along with vertigo she was found to have bilateral effusions with possible pneumonia she is having shortness of breath she also having vertigo here head CT was normal her symptoms been going on for a week will start on IV antibiotic spoke to hospitalist will admit Medical Records I reviewed the patient's medical records. Lab Data I reviewed the patient's lab results. 05/27/24 18:18 05/27/24 18:18 Radiology Impressions Chest X-Ray 05/27/24 18:12 IMPRESSION: As above. Head CT 05/27/24 18:12 IMPRESSION: No acute intracranial process. Senescent changes. If there is continued clinical concern for an acute ischemic event then follow up with a brain MRI examination. Chest CTA 05/27/24 18:33 IMPRESSION: 1. No pulmonary embolism. 2. Moderate bilateral pleural effusions with adjacent atelectasis. Additional opacities in the left lung base can also represent infiltrates in the appropriate clinical setting. 3. Asymmetric nodular density in the left breast including overlying cutaneous thickening. Correlate with mammogram. 4. Mildly prominent main pulmonary artery trunk diameter which can be seen in the setting of pulmonary hypertension. 5. Anasarca. 6. Hepatic steatosis. Laboratory Results WBC 8.62 10^3/uL (3.29-11.43) 05/27/24 18:18 RBC 2.96 10^6/uL (3.85-5.65) L 05/27/24 18:18 Hgb 8.80 g/dL (11.27-16.99) L 05/27/24 18:18 Hct 30.3 % (36-47) L 05/27/24 18:18 MCV 102.4 fl (85-98) H 05/27/24 18:18 MCH 29.7 pg (27-33) 05/27/24 18:18 MCHC 29.0 g/dL (30-55) L 05/27/24 18:18 RDW 19.2 % (12.1-15.1) H 05/27/24 18:18 Plt Count 249 10^3/cmm (157-399) 05/27/24 18:18 MPV 11.0 fL (7.4-10.4) H 05/27/24 18:18 Neut % (Auto) 71.7 % 05/27/24 18:18 Lymph % (Auto) 20.5 % 05/27/24 18:18 [place] % (Auto) 6.5 % 05/27/24 18:18 Eos % (Auto) 0.7 % 05/27/24 18:18 Baso % (Auto) 0.3 % 05/27/24 18:18 Neut # (Auto) 6.17 10^3/uL (1.8-7.7) 05/27/24 18:18 Lymph # (Auto) 1.8 10^3/uL (0.8-4.8) 05/27/24 18:18 [place] # (Auto) 0.6 10^3/uL (0.2-0.9) 05/27/24 18:18 Eos # (Auto) 0.1 10^3/uL (0.0-0.8) 05/27/24 18:18 Baso # (Auto) 0.0 10^3/uL (0.0-0.1) 05/27/24 18:18 Nucleated RBC % (auto) 0 % 05/27/24 18:18 Nucleated RBCs # 0.0 /100WBC 05/27/24 18:18 PT 16.60 SECONDS (12.1-14.9) H 05/27/24 18:18 INR 1.25 (0.8-1.2) H 05/27/24 18:18 D-Dimer 2.42 ug/mLFEU (0-0.59) H 05/27/24 18:18 Sodium 144 mmol/L (136-145) 05/27/24 18:18 Potassium 4.1 mmol/L (3.5-5.1) 05/27/24 18:18 Chloride 114 mmol/L (98-107) H 05/27/24 18:18 Carbon Dioxide 14 mmol/L (22-29) L 05/27/24 18:18 Anion Gap 20.1 (5-19) H 05/27/24 18:18 BUN 31 mg/dL (8-23) H 05/27/24 18:18 Creatinine 1.4 mg/dL (0.5-0.9) H 05/27/24 18:18 GFR Calculation Not Reportable 05/27/24 18:18 Glucose 86 mg/dL (65-115) 05/27/24 18:18 Calculated Osmolality 304 mOsm/kg (285-295) H 05/27/24 18:18 Calcium 7.3 mg/dL (8.5-10.5) L 05/27/24 18:18 Total Bilirubin 0.6 mg/dL (0.15-1.2) 05/27/24 18:18 AST 27 U/L (0-32) 05/27/24 18:18 ALT 15 U/L (0-33) 05/27/24 18:18 Alkaline Phosphatase 142 U/L (35-105) H 05/27/24 18:18 Troponin T Baseline 22 ng/L (0-10) H 05/27/24 18:18 NT-Pro-B Natriuret Pep 1239 pg/mL (0-450) H 05/27/24 18:18 Total Protein 4.3 g/dL (6.6-8.7) L 05/27/24 18:18 Albumin 2.2 g/dL (3.5-5.2) L 05/27/24 18:18 Globulin 2.1 g/dL (1.3-4.6) 05/27/24 18:18 Lipase 10 U/L (13-60) L 05/27/24 18:18 TSH 3.89 uIU/mL (0.27-4.20) 05/27/24 18:18 All radiology interpretation(s) finalized by discharge EKG Data EKG 1: I personally reviewed and interpreted this EKG as follows: EKG interpretation date: 05/27/24 EKG interpretation time: 18:17 Interpretation: sinus tach hr [address] elevationqrs 78 qtc 411 Discharge Plan Discharge Patient Disposition: Admitted As Inpatient Clinical Impression: Pneumonia, Pleural effusion, Vertigo Condition: Stable Prescriptions: No Action Women's 50 Plus Multivitamin 400 mcg-500 mg calcium-20 mcg tablet 1 tab PO DAILY ferrous gluconate 324 mg (37.5 mg iron) tablet 324 mg PO BID Qty: 60 3RF dicyclomine 20 mg tablet 20 mg PO BID PRN (Reason: abdominal cramping) Qty: 60 2RF levothyroxine 125 mcg tablet 125 mcg PO DAILY Qty: 90 3RF ondansetron 4 mg tablet,disintegrating See Rx Instructions .ROUTE .COMPLEX Qty: 60 1RF Dose Instruction: dissolve ONE TABLET UNDER THE TONGUE EVERY 8 HOURS NEEDED FOR nausea AND vomiting Rx Instructions: dissolve ONE TABLET UNDER THE TONGUE EVERY 8 HOURS NEEDED FOR nausea AND vomiting cholestyramine (with sugar) 4 gram powder See Rx Instructions .ROUTE .COMPLEX Qty: 378 3RF Dose Instruction: take TWO grams BY MOUTH TWICE DAILY with A meal; AVOID other meds WITHIN one hour BEFORE OR 4-6 hours AFTER DOSE Rx Instructions: take TWO grams BY MOUTH TWICE DAILY with A meal; AVOID other meds WITHIN one hour BEFORE OR 4-6 hours AFTER DOSE hydrocortisone 2.5 % cream with perineal applicator See Rx Instructions .ROUTE .COMPLEX Qty: 30 3RF Dose Instruction: Apply rectally TWICE DAILY NEEDED FOR HEMORRHOIDS Rx Instructions: Apply rectally TWICE DAILY NEEDED FOR HEMORRHOIDS potassium chloride 10 mEq capsule, extended release 20 meq PO BID Qty: 120 5RF hydrocodone-acetaminophen 7.5-325 mg tablet 1 tab PO BID PRN (Reason: pain) 30 Days Qty: 60 0RF lidocaine 5 % ointment 1 applic topical DAILY Qty: 50 2RF duloxetine 30 mg capsule,delayed release(DR/EC) See Rx Instructions .ROUTE .COMPLEX Qty: 30 4RF Dose Instruction: TAKE ONE CAPSULE BY MOUTH DAILY Rx Instructions: TAKE ONE CAPSULE BY MOUTH DAILY diclofenac sodium 75 mg tablet,delayed release (DR/EC) See Rx Instructions .ROUTE .COMPLEX Qty: 30 2RF Dose Instruction: TAKE ONE TABLET BY MOUTH DAILY NEEDED FOR PAIN Rx Instructions: TAKE ONE TABLET BY MOUTH DAILY NEEDED FOR PAIN metoprolol tartrate 25 mg tablet See Rx Instructions .ROUTE .COMPLEX Qty: 90 1RF Dose Instruction: TAKE ONE TABLET BY MOUTH DAILY Rx Instructions: TAKE ONE TABLET BY MOUTH DAILY pregabalin 150 mg capsule 150 mg PO DAILY Qty: 60 5RF Xarelto 10 mg tablet 10 mg PO DAILY Qty: 90 1RF promethazine 25 mg tablet 25 mg PO Q8H PRN (Reason: Nausea) loperamide [Imodium A-D] 2 mg capsule 2 mg PO Q8H PRN (Reason: loose stool) Qty: 14 0RF Rx Instructions: administer after each loose stool until symptoms controlled; do not exceed 8 mg per 24 hrs triamcinolone acetonide 0.1 % cream 1 applic topical DAILY PRN (Reason: Skin Irritation) pantoprazole 40 mg tablet,delayed release (DR/EC) 40 mg PO DAILY Referrals: Torin Sandhu MD [Primary Care Provider] - Print Language: Mongolian Coding Level of Care Code ED Crowd Controller for Chg Fwd Related Data Home Medications ?Medication ?Instructions ?Recorded ?Confirmed ieroysxr-[id number]-[id number] ac 400 1 tab PO DAILY 04/09/19 04/30/24 mcg-calcium carb 500 mg-vit K1 20 mcg tablet (Women's 50 Plus Multivitamin) triamcinolone acetonide 0.1 % 1 applic topical DAILY PRN Skin 06/30/23 04/30/24 topical cream Irritation promethazine 25 mg tablet 25 mg PO Q8H PRN Nausea 09/05/23 04/30/24 pantoprazole 40 mg tablet,delayed 40 mg PO DAILY 12/07/23 04/30/24 release Previous Rx's ?Medication ?Instructions ?Recorded ondansetron 4 mg disintegrating See Rx Instructions .Route 08/28/23 tablet .COMPLEX #60 ea loperamide 2 mg capsule (Imodium 2 mg PO Q8H PRN loose stool #14 09/08/23 A-D) caps cholestyramine (with sugar) 4 gram See Rx Instructions .Route 09/18/23 oral powder .COMPLEX #378 grams dicyclomine 20 mg tablet 20 mg PO BID PRN abdominal 09/18/23 cramping #60 tabs levothyroxine 125 mcg tablet 125 mcg PO DAILY #90 tabs 09/18/23 hydrocortisone 2.5 % topical cream See Rx Instructions .Route 10/04/23 with perineal applicator .COMPLEX #30 grams potassium chloride 10 mEq 20 meq (2 x 10 mEq) PO BID #120 10/16/23 capsule,extended release caps hydrocodone 7.5 mg-acetaminophen 1 tab PO BID PRN pain 30 days #60 12/05/23 325 mg tablet tabs lidocaine 5 % topical ointment 1 applic topical DAILY #50 grams 12/18/23 duloxetine 30 mg capsule,delayed See Rx Instructions .Route 02/12/24 release .COMPLEX #30 caps diclofenac sodium 75 mg See Rx Instructions .Route 03/11/24 tablet,delayed release .COMPLEX #30 tabs metoprolol tartrate 25 mg tablet See Rx Instructions .Route 03/13/24 .COMPLEX #90 tabs ferrous gluconate 324 mg (37.5 mg 324 mg PO BID #60 tabs 03/18/24 iron) tablet pregabalin 150 mg capsule 150 mg PO DAILY #60 caps 04/08/24 rivaroxaban 10 mg tablet (Xarelto) 10 mg PO DAILY #90 tabs 05/10/24 Allergies Allergy/AdvReac Type Severity Reaction Status Date / Time clindamycin Allergy chest pain Verified 04/30/24 13:37 Penicillins Allergy rash Verified 04/30/24 13:37
[2024-05-27 19:00] LABS: Alanine Aminotransferase 15 U/L (0-33); Albumin Level 2.2 g/dL (3.5-5.2); Alkaline Phosphatase 142 U/L (35-105); Aspartate Amino Transferase 27 U/L (0-32); Blood Urea Nitrogen 31 mg/dL (8-23); Calcium 7.3 mg/dL (8.5-10.5); Carbon Dioxide 14 mmol/L (22-29); Chloride 114 mmol/L (98-107); Globulin 2.1 g/dL (1.3-4.6); Glucose 86 mg/dL (65-115); Lipase 10 U/L (13-60); NT Pro B Type Natriuretic Pept 1239 pg/mL (0-450); Osmolality Calculated 304 mOsm/kg (285-295); Sodium 144 mmol/L (136-145); Thyroid Stimulating Hormone 3.89 uIU/mL (0.27-4.20); Total Bilirubin 0.6 mg/dL (0.15-1.2); Total Protein 4.3 g/dL (6.6-8.7)
[2024-05-27 19:14] LABS: Anion Gap 20.1 (5-19); Potassium 4.1 mmol/L (3.5-5.1)
[2024-05-27 19:20] LABS: INR 1.25 (0.8-1.2)
[2024-05-27 19:22] LABS: D Dimer 2.42 ug/mLFEU (0-0.59)
[2024-05-27] MEDS: iohexol 350 mg/mL 500 mL Btl (per mL) IV (19:42)
[2024-05-27] MEDS: cefTRIAXone 1,000 mg SDV 1000 MG IVP (20:44)
[2024-05-27] MEDS: AZITHROMYCIN ADD-Vantage 500 MG in 0.9% NaCl ADD-Vantage 250 ML 250 MG IV (20:46)
--- NOTE | 2024-05-27 21:11 | ECG_ITS ---
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 Measurements Intervals Allen Rate: 118 P: 25 TX: 130 QRS: -19 QRSD: 78 T: -9 QT: 342 QTc: 479 Interpretive Statements SINUS TACHYCARDIA WITH OCCASIONAL VENTRICULAR PREMATURE COMPLEXES LOW QRS VOLTAGE IN PRECORDIAL LEADS [QRS DEFLECTION < 1.0 mV IN CHEST LEADS] POSSIBLE ANTERIOR MYOCARDIAL INFARCTION , PROBABLY OLD [30 ms Q WAVE IN V3/V4, OR R < 0.2 mV IN V4] PROBABLE INFERIOR MYOCARDIAL INFARCTION , PROBABLY OLD [35 ms Q WAVE IN II/aVF] Compared to ECG 05/27/2024 18:17:42 Ventricular premature complex(es) now present Myocardial infarct finding still present Electronically Signed On 05-30-2024 22:31:08 CDT by Pearl Carty M.D. [email or web address]
[2024-05-27 21:21] LABS: Troponin 5 2HR 22.67 ng/L (0-10); Troponin 5 2HR Delta 0.67 ABS# (0-10)
--- NOTE | 2024-05-27 21:28 | P.HP_ITS ---
Providers/Chief Complaint 2 Admitting Physician: Jacob Maharaj MD Primary Care Provider: Torin Sandhu MD Chief Complaint: WEAKNESS History of Present Illness Lexy Chawla is a 78 year old female with history of dvt, chronic anticoagulation, lives with her , presented to the hospital for low extremity weakness, word find difficulty and dyspnea on exertion. Patient is stating that for last 1 week she has been noticing generalized weakness and fatigue in last 48 hours it has worsened to the point that she was not able to get out of her bed, she has not noticed any stroke related features, but she was concerned about word finding difficulty, she has not noticed any chest pain, fever, diarrhea etc. patient denies previous history of ID, PCI. She is compliant with her medications. Endorsing weight gain. CT head unremarkable, CTA chest was done because of abnormal D-dimer which did not show any PE, it is consistent with bilateral infiltrates which in my opinion is CHF exacerbation I would not continue antibiotics because her procalcitonin is not high she is afebrile Troponin without significant delta EKG showing sinus arrhythmia At the time of my evaluation patient is showing signs of anasarca, NIH 0 NovoFine difficulty appreciated IV antibiotics discontinued Creatinine 1.4 Review of Systems 2 Const: Reports: chills; Denies: fever(s) Eyes: Denies: change in vision ENMT: Denies: throat pain Card: Reports: swelling of feet/ankles Resp: Reports: dyspnea GI: Denies: abdominal pain Medications/Allergies Home Medications ?Medication ?Instructions ?Recorded ?Confirmed ?Last Taken ?Type xgannnni-ksr-agmbi ac 400 1 tab PO DAILY 04/09/1904/0701/08/24 History mcg-calcium carb 500 mg-vit K1 20 mcg tablet (Women's 50 Plus Multivitamin) triamcinolone acetonide 0.1 % 1 applic topical DAILY P RN Skin 06/30/23 04/30/24 01/08/24 History topical cream Irritation ondansetron 4 mg disintegrating See Rx Instructions .R oute 08/28/23 04/30/24 01/08/24 Rx tablet .COMPLEX #60 ea promethazine 25 mg tablet 25 mg PO Q8H PRN Nausea 07/0 04/2904/30/24 01/08/24 History loperamide 2 mg capsule (Imodium 2 mg PO Q8H PRN loose stool #14 09/08/23 04/30/24 01/08/24 Rx A-D) caps cholestyramine (with sugar) 4 gram See Rx Instructions .Route 09/18/23 04/30/24 01/08/24 Rx oral powder .COMPLEX #378 grams dicyclomine 20 mg tablet 20 mg PO BID PRN abdominal 0 09/18/23 04/30/24 01/08/24 Rx cramping #60 tabs levothyroxine 125 mcg tablet 125 mcg PO DAILY #90 tabs 09/18/23 04/30/24 01/09/24 Rx hydrocortisone 2.5 % topical cream See Rx Instructions .Route 10/04/23 04/30/24 01/08/24 Rx with perineal applicator .COMPLEX #30 grams potassium chloride 10 mEq 20 meq (2 x 10 mEq) PO BID # 120 10/16/23 04/30/24 01/08/24 Rx capsule,extended release caps hydrocodone 7.5 mg-acetaminophen 1 tab PO BID PRN pain 30 days #60 12/05/23 04/30/24 01/08/24 Rx 325 mg tablet tabs pantoprazole 40 mg tablet,delayed 40 mg PO DAILY 12/0604/30/24 01/08/24 History release lidocaine 5 % topical ointment 1 applic topical DAILY #50 grams 12/18/23 04/30/24 01/08/24 Rx duloxetine 30 mg capsule,delayed See Rx Instructions . Route 02/12/24 04/30/24 Unknown Rx release .COMPLEX #30 caps diclofenac sodium 75 mg See Rx Instructions .Route 0 03/11/24 04/30/24 Unknown Rx tablet,delayed release .COMPLEX #30 tabs metoprolol tartrate 25 mg tablet See Rx Instructions . Route 03/13/24 04/30/24 Unknown Rx .COMPLEX #90 tabs ferrous gluconate 324 mg (37.5 mg 324 mg PO BID #60 ta bs 03/18/24 04/30/24 Unknown Rx iron) tablet pregabalin 150 mg capsule 150 mg PO DAILY #60 caps 05/2804/30/24 Unknown Rx rivaroxaban 10 mg tablet (Xarelto) 10 mg PO DAILY #90 tabs 05/10/24 Unknown Rx Allergies Allergy/AdvReac Type Severity Reaction Status Date / Time clindamycin Allergy chest pain Verified 04/30/24 13:37 Penicillins Allergy rash Verified 04/30/24 13:37 PFSH Acute 2 PFSH: Medical History Hypertension Colitis Hypomagnesemia Normal anion gap metabolic acidosis Diarrhea Dehydration Acute renal failure Hemorrhoids Hypokalemia Diffuse large b-cell lymphoma, lymph nodes of head, face, 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 This occurred last night. On exam today no actual bleeding seen anywhere. Stitch from her vault suspension was again noted today on exam. No granulation tissue was noted on exam. However, due to this intermittent reporting of bleeding, I went ahead and removed the stitch. On removal, the stitch appeared to not be attached to anything other than the vaginal wall. Patient still had a urethral caruncle noted with a small spot adjacent to it which is suspicious for possible bleeding from that area. With her being on the Xarelto, she may have bled from either the caruncle or from the stitch in the vagina. Questions were answered. Follow-up as needed. Surgical History History of endoscopy 08/2022 - Dr. Blanton at [facility]. S/P lumpectomy, right breast (01/27/20) H/O excision of mass H/O colonoscopy 2013 H/O esophagogastroduodenoscopy 2019 History of laparotomy (~1996) left ovarian cystectomy Hx of hysterectomy (~04/08/14) with vaginal repair------- TVH, LSO, Uterosacral ligament suspension, Anterior vaginal repair, Perineorrhaphy, Single incision suburethral sling, Cystoscopy, Lysis of bowel adhesions. 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 Performed by Dr. Remi Musa at [facility] in [place], [place]. Surgical findings: Third degree cystocele, second to third degree uterine prolapse, adhesions of the sigmoid to the left fundal portion of the uterus and to the left ovary, left ovarian cyst present. History of surgery on right wrist (~12/2010) Hx of cholecystectomy (~02/2005) Laparoscopic. Performed by Dr. Blanton at [facility] in [place], [place]. History of bunionectomy (~2001) left H/O ovarian cystectomy (~1996) Left-- Laparotomy Hx of breast biopsy (~1993) 1993-- 1 cyst removed from left breast and 2 cysts removed from right breast. All pathologies were benign. History of tonsillectomy and adenoidectomy (~1951) Family History Grandfather Diabetes Maternal Mother Breast cancer dx at age 45 Denies family history of Colon cancer Ovarian cancer Heart disease Hypercholesteremia Anesthesia complication Bleeding disorder Hypertension Uterine cancer Thyroid disease Stroke Social History Smoking and tobacco/nicotine status: never used tobacco/nicotine Vitals/I&O/Wt Last Vital Signs Temp 97.8 F 05/27/24 18:23 Pulse 120 H 05/27/24 21:00 Resp 18 05/27/24 21:00 BP 114/90 05/27/24 21:00 Pulse Ox 97 05/27/24 21:00 O2 Del Method Nasal Cannula 05/27/24 21:00 O2 Flow Rate 2 05/27/24 20:00 Physical Exam 2 Narrative: Patient laying supine No acute orthopnea PND Currently on room air Blood pressure stable Signs of heart failure present 3+ edema of legs Upper extremity edema noted as well No active chest pain S1, S2 Abdomen distended but soft No sign of stroke AOx4 GCS 15 No audible stridor or wheezing Data 05/27/24 18:18 05/27/24 18:18 Micro: Microbiology 05/27/24 20:59 Blood Culture - Preliminary Blood SPECIMEN COLLECTED 05/27/24 20:59 Blood Culture - Preliminary Blood SPECIMEN COLLECTED A&P Assessment and plan (1) Esophageal stricture: (2) Hypothyroidism: Qualifiers: Hypothyroidism type: acquired Qualified Code(s): E03.9 - Hypothyroidism, unspecified (3) Depression: Qualifiers: Depression Type: reactive depression Qualified Code(s): F32.9 - Major depressive disorder, single episode, unspecified (4) Hypertension: Qualifiers: Hypertension type: primary hypertension Qualified Code(s): I10 - Essential (primary) hypertension (5) Iron deficiency anemia: (6) Pleural effusion: (7) CHF exacerbation: Plan Diastolic CHF respiration Likely related to dyspnea on exertion with bilateral effusion Repeat echo Grade 1 diastolic function noted on echo 2020 No active chest pain Troponin unremarkable EKG showing sinus arrhythmia Start IV diuresis Acute on chronic kidney disease likely cardiorenal dissipating, with diuresis Patient received contrast, monitor for contrast-induced nephropathy. Metabolic acidosis: Start bicarb tablets A-fib RVR Patient takes anticoagulating agent which I will continue, Secondary to chronic kidney disease she takes low-dose Heart rate around 101 Patient is due for her AV marilu blocking agents TSH within good normal range Abnormal D-dimer: No signs of PE Community-acquired pneumonia: Less likely: I do believe bilateral infiltrate related to CHF: Discontinue antibiotics, procalcitonin is also not high, no leukocytosis or fever Full code Cardiac diet DVT prophylaxis: Continue Xarelto PDMP PDMP Reviewed: Not Reviewed Attestations 2 Medical Necessity Statement*: More than 2 midnights anticipated for this transition, chest pain, tachyarrhythmia Diagnoses Esophageal stricture K22.2 Acquired hypothyroidism E03.9 Hypothyroidism type: acquired Reactive depression F32.9 Depression Type: reactive depression Primary hypertension I10 Hypertension type: primary hypertension Iron deficiency anemia D50.9 Pleural effusion J90 CHF exacerbation I50.9
[2024-05-27 21:59] LABS: Procalcitonin 0.19 ng/mL (0-0.5)
[2024-05-27] MEDS: ondansetron 2 mg/ML SDV 2 mL 4 MG IVP (23:39)
[2024-05-27 23:50] LABS: Vitamin B12 1913 pg/mL (232-1245)
[2024-05-27] MEDS: metoprolol tartrate 25 mg Tablet PO (23:57)
[2024-05-27] MEDS: FUROsemide 10 mg/mL SDV 10mL 40 MG IVP (23:58)
[2024-05-28] VITALS (96 sets, daily range): BP systolic 69–150; BP diastolic 49–119; PULSE 70–128; RESP 10–25; TEMP 36.6–36.7; O2SAT 86–99; BMI 31.7
--- NOTE | 2024-05-28 00:12 | ECG_ITS ---
[employer] Test Date: 2024-05-28 Pat Name: Lexy Chawla Department: Room: ICU06 Gender: Female Roll Carrier: : 1945 Requested By: Louann Dietz Order Number: [id number] Zoya MD: Pearl Carty M.D. Measurements Intervals [facility] Rate: 83 P: 71 ID: [id number] QRS: -14 QRSD: 88 T: -18 QT: 378 QTc: 446 Interpretive Statements SINUS RHYTHM WITH MARKED RHYTHM IRREGULARITY, POSSIBLE NON-CONDUCTED PAC, SA BLOCK, AV BLOCK, OR SINUS PAUSE LOW QRS VOLTAGE IN PRECORDIAL LEADS [QRS DEFLECTION < 1.0 mV IN CHEST LEADS] POSSIBLE ANTERIOR MYOCARDIAL INFARCTION , PROBABLY OLD [30 ms Q WAVE IN V3/V4, OR R < 0.2 mV IN V4] INFERIOR MYOCARDIAL INFARCTION , PROBABLY OLD [40+ ms Q WAVE AND/OR ST/T ABNORMALITY IN II/aVF] CRITICAL TEST RESULT.Compared to ECG 05/27/2024 21:11:28 Sinus tachycardia no longer present. Ventricular premature complex(es) no longer present. Myocardial infarct finding still present Electronically Signed On 05-30-2024 22:30:31 CDT by Pearl Carty M.D. [email or web address]
[2024-05-28 04:58] LABS: Basophils % 0.3 %; Eosinophils % 0.1 %; Hematocrit 27.7 % (36-47); Lymphocytes # 1.4 10^3/uL (0.8-4.8); Mean Corpuscular HGB Conc 28.9 g/dL (30-55); Mean Corpuscular Hemoglobin 29.4 pg (27-33); Mean Corpuscular Volume 101.8 fl (85-98); Mean Platelet Volume 10.4 fL (7.4-10.4); Monocytes # 0.6 10^3/uL (0.2-0.9); Monocytes % 7.5 %; Neutrophils # 5.78 10^3/uL (1.8-7.7); Neutrophils % 73.7 %; Nucleated Red Blood Cells % 0 %; Platelet Count 201 10^3/cmm (157-399); Red Blood Count 2.72 10^6/uL (3.85-5.65); Red Cell Distribution Width 19.1 % (12.1-15.1); White Blood Count 7.84 10^3/uL (3.29-11.43)
[2024-05-28 05:26] LABS: Blood Urea Nitrogen 33 mg/dL (8-23); Calcium 7.3 mg/dL (8.5-10.5); Carbon Dioxide 16 mmol/L (22-29); Chloride 115 mmol/L (98-107); Glucose 96 mg/dL (65-115); Magnesium 1.6 mg/dL (1.7-2.3); Osmolality Calculated 305 mOsm/kg (285-295); Sodium 144 mmol/L (136-145)
[2024-05-28] MEDS: levothyroxine 125 mcg Tablet PO (08:54)
[2024-05-28] MEDS: potassium chloride ER 20 mEq Tablet 40 MEQ PO (08:55)
[2024-05-28] MEDS: rivaroxaban 10 mg Tablet 20 MG PO (08:55)
[2024-05-28] MEDS: sodium bicarbonate 650 mg Tablet PO ×3 (08:55→20:35)
[2024-05-28] MEDS: metoprolol tartrate 25 mg Tablet PO (08:55)
[2024-05-28] MEDS: sennosides-docusate Tablet 1 TAB PO (08:55)
--- NOTE | 2024-05-28 11:55 | MRR_ITS ---
PROCEDURE INFORMATION: Exam: MR Head Without Contrast Exam date and time: 05/28/2024 5:08 PM Age: 78 years old Clinical indication: Condition or disease; History of cancer (specify primary cancer site): ; Primary cancer: Lymphoma; Additional info: R/O post circ stroke, brain mets? HX of large b cell lymphoma. TECHNIQUE: Imaging protocol: Magnetic resonance imaging of the head without contrast. COMPARISON: CT head wo con* [id number] 05/27/2024 6:31 PM FINDINGS: Brain: No acute infarct. No hemorrhage. Qfol-dl-pquzgmbz diffuse cerebral atrophy and FLAIR T2 hyperintense signal abnormality within the periventricular white matter tracts consistent with chronic small vessel ischemic disease. No edema. Cerebral ventricles: Normal. No ventriculomegaly. Bones: Unremarkable. Paranasal sinuses: Normal as visualized. No acute sinusitis. Mastoid air cells: Normal as visualized. No mastoid effusion. Orbital cavities: Unremarkable. Soft tissues: Unremarkable. MR/MR head wo con* [id number] IMPRESSION: No acute findings.
--- NOTE | 2024-05-28 12:11 | P.PN_ITS ---
Subjective 2 Subjective: Seen this morning. Patient still complains of slurred speech. She also is dizzy. Unable to tolerate orthostatic vital checks. When she stood up she could not tolerate and had to sit down right away. Does appear to have generalized anasarca. States her bilateral lower extremity edema is quite chronic at this time. On chart review it is noted that patient has diffuse large B-cell lymphoma in the past and follows up with oncology. Infection appointment today morning however now that she is in the hospital she could not make it there. At her previous oncology appointment on 30 April she reported above findings to her oncologist as well. She was referred to see neurosurgery. As per oncology notes there is no evidence of recurrence of cancer at this time. She tells me that the lower extremity edema is chronic however upper extremities seem to be slightly more edematous compared to prior. states that she was able to ambulate on her own however from the last 1 months she has been using a walker. does agree that patient has slurred speech however is not sure regarding word finding difficulty however the patient states she has word finding difficulty. Patient orthostatic vitals are positive at this time. Patient and also states that she has had diarrhea in last few weeks however that improved after they were given Imodium by their primary care doctor. They are unable to tell me the exact timeline of when the diarrhea started and when it stopped. However at 1 point they also mentioned that she had a loose stool yesterday as well. Patient is somewhat of a poor historian. Vitals/I&O/Wt Last Vital Signs Temp 98.0 F 05/28/24 09:31 Pulse 112 H 05/28/24 11:30 Resp 23 H 05/28/24 11:30 BP 69/49 05/28/24 11:45 Pulse Ox 91 05/28/24 11:15 O2 Del Method Room Air 05/28/24 11:15 O2 Flow Rate 3 05/27/24 21:56 05/27/24 05/28/24 05/28/24 22:59 06:59 14:59 Intake Total 250 / 250 Output Total 500 / 500 Balance -250 / -250 Weight last 48 hrs Weight 85.5 kg Physical Exam 2 Narrative: General: Alert oriented x3, patient seen laying in bed appearing comfortable at this time, frail elderly female. HEENT: Normocephalic, atraumatic, EOMI, room air. Cardio: Slightly tachycardic upon exertion otherwise regular rate., Somewhat hypotensive. Respiratory: Mainly clear to auscultation bilaterally with diminished breath sounds at bases. GI: Abdomen soft, nontender, nondistended, bowel sounds + Extremities: Upper extremities generally edematous, nonpitting edema Bilateral lower extremity nonpitting edema anasarca present up to knees. Urinary Catheter Management: Graham: Cath Placed During This Visit: yes Urinary Catheter Date of Insertion: 05/28/24 Urinary Catheter Time of Insertion: 07:25 Data 05/28/24 04:45 05/28/24 04:45 Micro: Microbiology 05/27/24 20:59 Blood Culture - Preliminary Blood SPECIMEN COLLECTED 05/27/24 20:59 Blood Culture - Preliminary Blood SPECIMEN COLLECTED A&P Assessment and plan (1) Orthostatic dizziness: (2) CHF exacerbation: (3) Dizziness: (4) Word finding difficulty: (5) Anasarca: (6) Pneumonia: (7) Diastolic heart failure: (8) Slurred speech: (9) Pleural effusion: (10) Esophageal stricture: (11) Hypothyroidism: Qualifiers: Hypothyroidism type: acquired Qualified Code(s): E03.9 - Hypothyroidism, unspecified (12) Depression: Qualifiers: Depression Type: reactive depression Qualified Code(s): F32.9 - Major depressive disorder, single episode, unspecified (13) Hypertension: Qualifiers: Hypertension type: primary hypertension Qualified Code(s): I10 - Essential (primary) hypertension (14) Iron deficiency anemia: (15) Diffuse large b-cell lymphoma, lymph nodes of head, face, and neck: Plan Diastolic CHF respiration Likely related to dyspnea on exertion with bilateral effusion Repeat echo Grade 1 diastolic function noted on echo 2020 No active chest pain Troponin unremarkable EKG showing sinus arrhythmia Start IV diuresis Acute on chronic kidney disease likely cardiorenal dissipating, with diuresis Patient received contrast, monitor for contrast-induced nephropathy. Metabolic acidosis: Start bicarb tablets A-fib RVR Patient takes anticoagulating agent which I will continue, Secondary to chronic kidney disease she takes low-dose Heart rate around 101 Patient is due for her AV marilu blocking agents TSH within good normal range Abnormal D-dimer: No signs of PE Community-acquired pneumonia: Less likely: I do believe bilateral infiltrate related to CHF: Discontinue antibiotics, procalcitonin is also not high, no leukocytosis or fever Full code Cardiac diet DVT prophylaxis: Continue Xarelto 05/28/2024 Echo from 2020 does show grade 1 diastolic dysfunction. We will repeat echo today. Patient shortness of breath most likely secondary to bilateral pleural effusions with adjacent atelectasis. Left lung base can also represent infiltrates possibly?. Will empirically add antibiotics ceftriaxone azithromycin Patient is positive for orthostatics. Diarrhea last few weeks?. Unsure etiology at this time. Patient's bicarb is on the lower side consistent with diarrhea. Creatinine is 1.7 today. Patient may have metabolic acidosis secondary to worsening kidney injury.? Patient does have chronic anasarca. I will stop Lasix at this time and give patient to 50 cc normal saline bolus. He does have a history of diffuse large B cell lymphoma and follows up with oncology for it. As per oncology records it seems that no recurrence of cancer? However she has been reporting slurred speech and word finding difficulty and physical deconditioning requiring the use of a walker. Query brain mets?. At 1 point there was also a questionable mass at the kidney however repeat CT scan did not show it. Given patient's symptoms I we will be ordering MRI brain to rule out posterior circulation stroke, brain mets or any other pathology. Patient does have a history of pulmonary embolism and has an IVC filter in place. She states she has been told she is hypercoagulable and therefore should take a blood thinner. She takes Xarelto at home. Albumin is 2.2. Anasarca most likely secondary to low oncotic pressures. This may also explain her bilateral pleural effusions. We will wait for echo. Patient has baseline creatinine is 1.2/1.3. Continue bicarb 650 3 times daily. I agree patient has anasarca however is dry mucous membranes and very dry lips. Normal saline to 50 cc bolus ordered at this time. May start Levophed as needed I cannot completely rule out community-acquired pneumonia and I agree it is less likely however given patient's history of malignancy I will continue ceftriaxone azithromycin as empiric coverage at this time. Continue Xarelto. She is rate controlled at this time. Patient did receive contrast on admission. Will need to monitor for contrast- induced nephropathy. Recheck BMP every 12 hours. Will consult nephrology. May consider albumin with Lasix. PDMP PDMP Reviewed: Not Reviewed Attestations 2 Medical Necessity Statement*: Patient requires greater than 48 hours stay at this time for orthostatic hypotension, REGINALD, anasarca, treatment of possible pneumonia, workup of CHF. Diagnoses Orthostatic dizziness R42 CHF exacerbation I50.9 Dizziness R42 Word finding difficulty R47.89 Anasarca R60.1 Pneumonia J18.9 Diastolic heart failure I50.30 Slurred speech R47.81 Pleural effusion J90 Esophageal stricture K22.2 Acquired hypothyroidism E03.9 Hypothyroidism type: acquired Reactive depression F32.9 Depression Type: reactive depression Primary hypertension I10 Hypertension type: primary hypertension Iron deficiency anemia D50.9 Diffuse large b-cell lymphoma, lymph nodes of head, face, and neck C83.31
[2024-05-28] MEDS: levofloxacin-dextrose 5 % 750 MG/150 ML PREMIX 100 MG IV (12:23)
[2024-05-28] MEDS: sodium chloride 0.9% 250 ML IV (12:23)
[2024-05-28] MEDS: cefTRIAXone 1,000 mg SDV 1000 MG IVP (13:21)
[2024-05-28] MEDS: azithromycin 250 mg Tablet 500 MG PO (13:21)
[2024-05-28] MEDS: albumin 25 G/100 ML BAG 60 G IV ×2 (13:21→21:04)
--- NOTE | 2024-05-28 13:28 | XR_ITS ---
WS: [id number] Exam: XR chest 1V portable [id number] Date/Time of Exam: 05/28/2024 1:28 PM Reason For Exam: Post PICC insertion Comparison 05/27/2024. A right-sided PICC line has been placed and ends at the expected region of the RIGHT atrium. RIGHT perihilar infiltrate noted unchanged. The lungs remain fully inflated. Surgical clips along the RIGHT axilla. Cardiomediastinal silhouette is unremarkable. XR/XR chest 1V portable [id number] IMPRESSION: 1. Right-sided PICC line probably ending in the RIGHT atrium. The line could be retracted 3 to 4 cm for optimal position.
[2024-05-28 13:31] LABS: Lactic Sepsis W/Reflex 2.9 mmol/L (0.5-2.2)
[2024-05-28] MEDS: sodium chloride 0.9% 1,000 ML 60 ML IV (14:36)
--- NOTE | 2024-05-28 14:43 | CTR_ITS ---
PROCEDURE INFORMATION: Exam: CT Abdomen And Pelvis Without Contrast Exam date and time: 05/28/2024 3:52 PM Age: 78 years old Clinical indication: Other: Diarrhea, sepsis; HX of non hodgkins lymphoma, breast TECHNIQUE: Imaging protocol: Computed tomography of the abdomen and pelvis without contrast. Radiation optimization: All CT scans at this facility use at least one of these dose optimization techniques: automated exposure control; mA and/or kV adjustment per patient size (includes targeted exams where dose is matched to clinical indication); or iterative reconstruction. COMPARISON: MR abdomen wo/w con* [id number] 12/15/2023 1:37 PM RADIATION DOSE METRICS: Total DLP (mGy-cm): 739.08 FINDINGS: Pleural spaces: Small bilateral pleural effusions with atelectatic changes in the lung bases. Liver: The liver is diffusely low in attenuation consistent with hepatic steatosis. Gallbladder and biliary ducts: Normal. No calcified stones. No ductal dilation. Pancreas: Normal. No ductal dilation. Spleen: Normal. No splenomegaly. Adrenal glands: Normal. No mass. Kidneys and ureters: Bilateral simple appearing renal cysts are present which do not need further follow-up. Stomach and bowel: Gaseous distension without dilatation of the transverse colon. No bowel obstruction. Appendix: The appendix is not visualized but there are no secondary signs of acute appendicitis. Intraperitoneal space: Moderate volume abdominal ascites. Vasculature: There is an IVC filter in place. Lymph nodes: Unremarkable. No enlarged lymph nodes. Urinary bladder: There is a Graham catheter in the bladder. The bladder is decompressed. Reproductive: Unremarkable as visualized. Bones/joints: Severe degenerative disc disease at L1-L2. Soft tissues: Diffuse anasarca. CT/CT abdomen pelvis wo con [id number] IMPRESSION: 1. Moderate volume abdominal ascites. 2. Gaseous distension without dilatation of the transverse colon. No bowel obstruction. 3. Diffuse anasarca. 4. Small bilateral pleural effusions COMMENTS: 1. For patients with an IVC filter, recommend assessment for a management plan for the patient's IVC filter. If there is no established management plan, recommend referral to an interventional clinician on a nonemergent basis for evaluation. 2. Consistent with the [employer]'s Incidental Findings Committee white paper (J Am Tiffanie Radiol 2018): Any incidental renal lesion less than 1 cm or classified as too small to characterize, or any incidental cystic renal lesion characterized as simple-appearing, is likely benign. No follow-up imaging is recommended for these lesions per consensus recommendations based on imaging criteria.
--- NOTE | 2024-05-28 14:43 | PICC.NOTE ---
Triple lumen PICC placed to right basilic vein. Referred to vascular access nurse for PICC placement due to use of vasopressors. Risks and benefits discussed with pt and spouse and informed consent obtained from pt spouse. Right arm assessed with right basilic vein measuring 3.7 mm, straight, and apparent best choice for placement. Using sterile technique and MST, right basilic vein accessed x 1 stick. Mid-arm circumference measured 10 cm from right AC 41 cm. Trimmed cath 40 cm with 1 cm external length noted. CXR shows tip in right atrium. Radiologist recommended retracting PICC 3-4 cm. PICC retracted 4 cm, which should place PICC in distal SVC. Line secured with stat-lock. Insertion site covered with Biopatch and TSM. Report given to bedside nurse, MINO Hill.
[2024-05-28 14:54] LABS: Reflex Lactate Order REFLEX LACTIC ORDERD
[2024-05-28 15:44] LABS: Lactic Acid level (Lactate) 1.3 mmol/L (0.5-2.2)
[2024-05-28 16:45] LABS: C.Diff PCR (Lab) NEGATIVE (Negative)
[2024-05-28 18:36] LABS: Alanine Aminotransferase 13 U/L (0-33); Albumin Level 2.4 g/dL (3.5-5.2); Alkaline Phosphatase 101 U/L (35-105); Anion Gap 16.9 (5-19); Aspartate Amino Transferase 20 U/L (0-32); Blood Urea Nitrogen 32 mg/dL (8-23); Calcium 7.4 mg/dL (8.5-10.5); Carbon Dioxide 18 mmol/L (22-29); Chloride 112 mmol/L (98-107); Globulin 1.8 g/dL (1.3-4.6); Glucose 77 mg/dL (65-115); Osmolality Calculated 302 mOsm/kg (285-295); Potassium 3.9 mmol/L (3.5-5.1); Sodium 143 mmol/L (136-145); Total Bilirubin 0.4 mg/dL (0.15-1.2); Total Protein 4.2 g/dL (6.6-8.7)
--- NOTE | 2024-05-28 21:55 | USCV_ITS ---
Lexy Chawla Age: 78 Gender: F : 1945 Exam Date: 05/28/2024 03:44 Ordering Phys: Jacob Maharaj MD Technologist: [place] [facility] [place]: CHF SOB dizzy. History of lymphoma BP: 124 / 80 HR: 74 Rhythm: erratic sinus rhythm Technical Quality: Adequate MEASUREMENTS (Male / Female) Normal Values 2D ECHO LV Diastolic Diameter PLAX 3.9 cm 4.2 - 5.9 / 3.9 - 5.3 cm IVS Diastolic Thickness 1.2 cm 0.6 - 1.0 / 0.6 - 0.9 cm IVS Systolic Thickness 1.6 cm LVPW Diastolic Thickness 1.4 cm 0.6 - 1.0 / 0.6 - 0.9 cm LVPW Systolic Thickness 1.5 cm LVOT Diameter 2.0 cm LV Ejection Fraction 2D Teich 72.6 % LV Ejection Fraction MOD 4C 73.0 % LV Ejection Fraction MOD 2C 50.1 % LV Ejection Fraction 2C AL 51.0 % LA Diameter 3.5 cm Aorta at Sinotubular Diameter 3.0 cm IVC Diameter 1.7 cm M-MODE LA Ao Ratio MM 1.2 AV Cusp Separation MM 1.9 cm DOPPLER AV Peak Velocity 119.0 cm/s LVOT Peak Velocity 78.0 cm/s AV Area Cont Eq vti 2.3 cm squared AV Area Cont Eq pk 2.1 cm squared MV Peak Velocity 106.0 cm/s MV Area PHT 2.3 cm squared Mitral E to A Ratio 0.8 TV Peak Velocity 260.5 cm/s TR Peak Velocity 291.0 cm/s TR Peak Gradient 33.9 mmHg TV Peak E Velocity 43.0 cm/s PV Peak Velocity 108.0 cm/s FINDINGS Left Ventricle Technically limited quality echocardiogram because of poor ultrasonic windows. Grossly LV systolic function appears normal. Grade 1 diastolic dysfunction Right Ventricle Grossly normal Right Atrium Grossly normal Left Atrium Dilated Mitral Valve Structurally normal mitral valve. Mild mitral regurgitation Aortic Valve Grossly normal. No significant stenosis or regurgitation Tricuspid Valve Mild tricuspid regurgitation. Pulmonary artery systolic pressure is 35-40mmHg. This is consistent with mild pulmonary hypertension. Pulmonic Valve Not well visualized Pericardium Pleural effusion seen. Small pericardial effusion Aorta Normal in size IVC Appears to be normal CONCLUSIONS Technically limited quality echocardiogram because of poor ultrasonic windows. Grossly LV systolic function appears normal. Grade 1 diastolic dysfunction Left atrial dilation Mild mitral regurgitation Mild tricuspid regurgitation Mild pulmonary hypertension Pleural effusion seen. Small pericardial effusion Mack Gudino MD (Electronically Signed) Final Date: 29 May 2024 10:36 S
[2024-05-29] VITALS (93 sets, daily range): BP systolic 87–124; BP diastolic 49–79; PULSE 70–114; RESP 11–31; TEMP 36.1–36.8; O2SAT 93–99
[2024-05-29 05:06] LABS: Basophils % 0.2 %; Eosinophils # 0.1 10^3/uL (0.0-0.8); Eosinophils % 1.7 %; Lymphocytes # 1.3 10^3/uL (0.8-4.8); Lymphocytes % 31.8 %; Mean Corpuscular HGB Conc 29.7 g/dL (30-55); Mean Corpuscular Hemoglobin 30.3 pg (27-33); Mean Corpuscular Volume 102.1 fl (85-98); Mean Platelet Volume 10.2 fL (7.4-10.4); Monocytes # 0.4 10^3/uL (0.2-0.9); Monocytes % 9.7 %; Neutrophils # 2.24 10^3/uL (1.8-7.7); Neutrophils % 55.9 %; Nucleated Red Blood Cells % 0.7 %; Platelet Count 124 10^3/cmm (157-399); Red Blood Count 1.88 10^6/uL (3.85-5.65); Red Cell Distribution Width 19.2 % (12.1-15.1); White Blood Count 4.02 10^3/uL (3.29-11.43)
[2024-05-29 05:21] LABS: Hematocrit 19.2 % (36-47)
[2024-05-29 05:24] LABS: Anion Gap 14.4 (5-19); Blood Urea Nitrogen 30 mg/dL (8-23); Calcium 7.3 mg/dL (8.5-10.5); Carbon Dioxide 18 mmol/L (22-29); Chloride 115 mmol/L (98-107); Glucose 73 mg/dL (65-115); Magnesium 1.5 mg/dL (1.7-2.3); Osmolality Calculated 303 mOsm/kg (285-295); Potassium 3.4 mmol/L (3.5-5.1); Sodium 144 mmol/L (136-145)
--- NOTE | 2024-05-29 05:58 | P.CONIM_ITS ---
Providers/Reason For Consult 2 Consulting Physician/Specialty*: kommana/Nephrology Reason for Consult*: Acute on CKD Attending Physician: Yamilet Brown MD Primary Care Provider: Torin Sandhu MD History of Present Illness History of Present Illness Lexy Chawla is a 78 year old female Patient is a 78-year-old female with multiple medical problems including history of DVT on chronic anticoagulation, history of A-fib hypothyroidism gastroesophageal reflux disease was admitted to the hospital on 05/27/2024 due to generalized weakness. CT scan head was unremarkable CT angiogram of the chest was negative for PE. Patient was noted to have anasarca lab data is significant for hemoglobin of 8.8 CO2 of 14 creatinine of 1.4. Today patient dropped hemoglobin to 5.7 with no obvious source of bleeding yet.. Patient did have CT abdomen without contrast yesterday that did not show evidence of hepatic steatosis, ascites diffuse anasarca and bilateral small pleural effusions. Review of Systems 2 Narrative: Negative Medications/Allergies Home Medications ?Medication ?Instructions ?Recorded ?Confirmed ?Last Taken ?Type pbqiezud-oxz-kgojl ac 400 1 tab PO DAILY 04/09/1905/0505/26/24 History mcg-calcium carb 500 mg-vit K1 20 mcg tablet (Women's 50 Plus Multivitamin) triamcinolone acetonide 0.1 % 1 applic topical DAILY P RN Skin 06/30/23 05/28/24 01/08/24 History topical cream Irritation ondansetron 4 mg disintegrating See Rx Instructions .R oute 08/28/23 05/28/24 01/08/24 Rx tablet .COMPLEX #60 ea promethazine 25 mg tablet 25 mg PO Q8H PRN Nausea 07/0 04/2905/28/24 01/08/24 History loperamide 2 mg capsule (Imodium 2 mg PO Q8H PRN loose stool #14 09/08/23 05/28/24 01/08/24 Rx A-D) caps dicyclomine 20 mg tablet 20 mg PO BID PRN abdominal 0 09/18/23 05/28/24 05/26/24 Rx cramping #60 tabs levothyroxine 125 mcg tablet 125 mcg PO DAILY #90 tabs 09/18/23 05/28/24 05/26/24 Rx hydrocortisone 2.5 % topical cream See Rx Instructions .Route 07/31/24 03/25/25 11/04/24 Rx with perineal applicator .COMPLEX #30 grams potassium chloride 10 mEq 20 meq (2 x 10 mEq) PO BID # 120 10/16/23 05/28/24 05/26/24 Rx capsule,extended release caps hydrocodone 7.5 mg-acetaminophen 1 tab PO BID PRN pain 30 days #60 12/05/23 05/28/24 01/08/24 Rx 325 mg tablet tabs pantoprazole 40 mg tablet,delayed 40 mg PO DAILY 12/0605/28/24 05/26/24 History release lidocaine 5 % topical ointment 1 applic topical DAILY #50 grams 12/18/23 05/28/24 01/08/24 Rx duloxetine 30 mg capsule,delayed See Rx Instructions . Route 02/12/24 05/28/24 05/26/24 Rx release .COMPLEX #30 caps diclofenac sodium 75 mg See Rx Instructions .Route 0 03/11/24 05/28/24 Unknown Rx tablet,delayed release .COMPLEX #30 tabs metoprolol tartrate 25 mg tablet See Rx Instructions . Route 03/13/24 05/28/24 05/26/24 Rx .COMPLEX #90 tabs ferrous gluconate 324 mg (37.5 mg 324 mg PO BID #60 ta bs 03/18/24 05/28/24 Unknown Rx iron) tablet pregabalin 150 mg capsule 150 mg PO DAILY #60 caps 05/2805/28/24 05/26/24 Rx rivaroxaban 10 mg tablet (Xarelto) 10 mg PO DAILY #90 tabs 05/10/24 05/28/24 05/26/24 Rx Allergies Allergy/AdvReac Type Severity Reaction Status Date / Time clindamycin Allergy chest pain Verified 04/30/24 13:37 Penicillins Allergy rash Verified 04/30/24 13:37 Current Medications Generic Name Dose Route Start Last Admin Trade Name Freq PRN Reason Stop Dose Admin Ceftriaxone Sodium 1,000 mg 05/28/24 12:30 05/28/24 13:21 Ceftriaxone 1,000 Mg Sdv IVP 1,000 mg Q24H MONA Administration Protocol Furosemide 40 mg 05/27/24 23:30 05/27/24 23:58 Furosemide 10 Mg/Ml Sdv 10ml IVP 40 mg Q12H MONA Administration Sodium Chloride 1,000 mls @ 60 mls/hr 05/28/24 13:00 05/28/24 14:36 Sodium Chloride 0.9% IV 60 mls/hr .[id number] MONA Administration Levothyroxine Sodium 125 mcg 05/28/24 07:00 05/28/24 08:54 Levothyroxine 125 Mcg Tablet PO 125 mcg ACBREAKFAST MONA Administration Metoprolol Tartrate 25 mg 05/27/24 23:40 05/28/24 08:55 Metoprolol Tartrate 25 Mg Tablet PO 25 mg DAILY MONA Administration Ondansetron HCl 4 mg 05/27/24 21:55 05/27/24 23:39 Ondansetron 2 Mg/Ml Sdv 2 Ml IVP 4 mg Q6H PRN Administration NAUSEA AND VOMITING Potassium Chloride 40 meq 05/28/24 09:00 05/28/24 08:55 Potassium Chloride Er 20 Meq Tablet PO 40 meq DAILY MONA Administration Rivaroxaban 20 mg 05/28/24 09:00 05/28/24 08:55 Rivaroxaban 10 Mg Tablet PO 20 mg DAILY MONA Administration Senna/Docusate Sodium 1 tab 05/28/24 09:00 05/28/24 08:55 Sennosides-Docusate Tablet PO 1 tab DAILY MONA Administration Sodium Bicarbonate 650 mg 05/28/24 09:00 05/28/24 20:35 Sodium Bicarbonate 650 Mg Tablet PO 650 mg TID MONA Administration PFSH Acute 2 PFSH: Medical History Hypertension Colitis Hypomagnesemia Normal anion gap metabolic acidosis Diarrhea Dehydration Acute renal failure Hemorrhoids Hypokalemia Diffuse large b-cell lymphoma, lymph nodes of head, face, 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 This occurred last night. On exam today no actual bleeding seen anywhere. Stitch from her vault suspension was again noted today on exam. No granulation tissue was noted on exam. However, due to this intermittent reporting of bleeding, I went ahead and removed the stitch. On removal, the stitch appeared to not be attached to anything other than the vaginal wall. Patient still had a urethral caruncle noted with a small spot adjacent to it which is suspicious for possible bleeding from that area. With her being on the Xarelto, she may have bled from either the caruncle or from the stitch in the vagina. Questions were answered. Follow-up as needed. Surgical History History of endoscopy 08/2022 - Dr. Blanton at [facility]. S/P lumpectomy, right breast (01/27/20) H/O excision of mass H/O colonoscopy 2013 H/O esophagogastroduodenoscopy 2019 History of laparotomy (~1996) left ovarian cystectomy Hx of hysterectomy (~04/08/14) with vaginal repair------- TVH, LSO, Uterosacral ligament suspension, Anterior vaginal repair, Perineorrhaphy, Single incision suburethral sling, Cystoscopy, Lysis of bowel adhesions. 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 Performed by Dr. Remi Musa at [facility] in [place], [place]. Surgical findings: Third degree cystocele, second to third degree uterine prolapse, adhesions of the sigmoid to the left fundal portion of the uterus and to the left ovary, left ovarian cyst present. History of surgery on right wrist (~12/2010) Hx of cholecystectomy (~02/2005) Laparoscopic. Performed by Dr. Blanton at [facility] in [place], [place]. History of bunionectomy (~2001) left H/O ovarian cystectomy (~1996) Left-- Laparotomy Hx of breast biopsy (~1993) 1993-- 1 cyst removed from left breast and 2 cysts removed from right breast. All pathologies were benign. History of tonsillectomy and adenoidectomy (~1951) Family History Grandfather Diabetes Maternal Mother Breast cancer dx at age 45 Denies family history of Colon cancer Ovarian cancer Heart disease Hypercholesteremia Anesthesia complication Bleeding disorder Hypertension Uterine cancer Thyroid disease Stroke Social History Smoking and tobacco/nicotine status: never used tobacco/nicotine Vitals/I&O/Wt Last Vital Signs Temp 97.8 F 05/29/24 04:00 Pulse 99 05/29/24 05:31 Resp 21 H 05/29/24 05:31 BP 97/54 05/29/24 05:31 Pulse Ox 96 05/29/24 05:31 O2 Del Method Room Air 05/28/24 20:00 O2 Flow Rate 3 05/27/24 21:56 05/28/24 05/28/24 05/29/24 14:59 22:59 06:59 Intake Total 240 / 240 700 / 940 Output Total 275 / 275 Balance 240 / 240 425 / 665 Weight last 48 hrs Weight 86.5 kg Weight 85.5 kg Physical Exam 2 Narrative: awake , alert , No distress , looks pale PEERLA S1S2 RRR per report Lungs clear per report abdomen - soft , non tender , distended per report + LE edema Urinary Catheter Management: Graham: Cath Placed During This Visit: yes Reason for Continuing Indwelling Catheter: Accurate Measurement of Urinary Output in Critically Ill Patients Urinary Catheter Date of Insertion: 05/28/24 Urinary Catheter Time of Insertion: 07:25 Data 05/29/24 05:37 05/29/24 04:36 Micro: Microbiology 05/27/24 20:59 Blood Culture - Preliminary Blood NEGATIVE TO DATE 05/27/24 20:59 Blood Culture - Preliminary Blood NEGATIVE TO DATE A&P Assessment and plan (1) Acute on chronic renal failure: 1. Acute on chronic kidney disease stage III: Baseline creatinine is in the 1.2 range previously now has an REGINALD with a creatinine. Etiology likely renal hypoperfusion in the setting of low blood pressures and severe anemia, and also had contrast exposure. Home med list also includes diclofenac tablets-unclear if patient was taking. -Creatinine has slightly improved to 1.5 today, I added IV albumin and midodrine. Will check echocardiogram, check urine analysis and UPCR -No acute indication for dialysis currently 2. Anasarca: ? Etiology-? liver cirrhosis noted hypoalbuminemia, check echocardiogram , check UA and UPCR 3. Severe anemia: Patient on chronic anticoagulation, workup in process, plan for 2 units of PRBCs today 4. Metabolic acidosis: Mild improving monitor 5. Hypokalemia and hypomagnesemia: Replete 6. History of DVT on chronic anticoagulation 7. History of A-fib Patient evaluated using audiovisual cart. Time spent 40 minutes PDMP PDMP Reviewed: Not Reviewed Consult Attestations 2 Medical Necessity Statement: per medicne Coding Level of Care Code Acute Code for Chg Fwd Diagnoses Acute on chronic renal failure N17.9; N18.9
[2024-05-29 06:08] LABS: Hematocrit 19.3 % (36-47)
[2024-05-29] MEDS: potassium chloride ER 20 mEq Tablet 40 MEQ PO ×2 (06:22→08:38)
[2024-05-29] MEDS: pantoprazole 40 mg SDV IVP ×2 (06:26→16:49)
--- NOTE | 2024-05-29 06:29 | USCV_ITS ---
Lexy Chawla Age: 78 Gender: F : 1945 Exam Date: 05/29/2024 08:02 Ordering Phys: Jacob Maharaj MD Technologist: Exam Location: [facility] [place] Indication: lt arm pain nad PROCEDURES: Venous duplex imaging was performed in only the left upper extremity. The following venous structures were evaluated: internal jugular vein, subclavian vein, axillary vein, and brachial veins. In addition, the basilic vein, cephalic vein, radial vein, and ulnar vein. FINDINGS: No evidence of deep vein thrombosis or superficial thrombophlebitis in the left upper extremity. CONCLUSIONS No evidence of thrombus of the left upper extremity veins. Caio Pérez MD (Electronically Signed) Final Date: 29 May 2024 16:32 S
[2024-05-29] MEDS: norepinephrine 4 MG/250 ML BAG 7.5 MG IV (06:33)
[2024-05-29] MEDS: levothyroxine 125 mcg Tablet PO (06:33)
--- NOTE | 2024-05-29 06:59 | PC.NURSE ---
Notified Dr. Maharaj of critical H&H results on patient. Received orders to being packed RBC orders. Also discussed patient asessment, ntofied Dr. Maharaj of soft but greater than 65 MAP blood pressures, swelling to the left arm below the elbow, and lack of obvious bloody BM's throughout the shift. Received orders for leveophed drip, potassium replacement PO, protonix, and venous duplex. All orders entered by Dr. Maharaj.
[2024-05-29] MEDS: sodium chloride 0.9% 100 mL Bag 50 ML IV ×2 (08:03→11:27)
--- NOTE | 2024-05-29 08:05 | PC.NURSE ---
First unit PRBC's infusing as ordered. VSS. No reaction noted at this time. Will continue to monitor.
--- NOTE | 2024-05-29 08:19 | US_ITS ---
WS: [id number] ULTRASOUND ABDOMEN CLINICAL INFORMATION: r/o cirhossis COMPARISON: None. FINDINGS: Liver Size: Normal. Craniocaudal length: 15.4 cm. Echogenicity: Coarse Surface nodularity: None. Mass (size and location): None. Bile ducts Intrahepatic ducts: Normal. Common bile duct diameter: 5 mm. Gallbladder Cholecystectomy Pancreas Not well visualized Right kidney: Large RIGHT kidney cyst 8.5 x 10.2 cm Hydronephrosis: None. Size: 8.7 cm x 4.4 cm x 4.5 cm Unable to image LEFT kidney. Spleen appears normal measuring 10.2 cm. Abdominal aorta and IVC Visualized portions are normal. US/US abdomen complete* [id number] IMPRESSION: 1. Portal vein appears patent. 2. Fatty liver 3. Large RIGHT renal cyst as seen on the recent CT 4. Cholecystectomy
[2024-05-29] MEDS: albumin 25 G/100 ML BAG 60 G IV ×2 (08:38→16:49)
[2024-05-29] MEDS: potassium chloride ER 20 mEq Tablet PO (08:38)
[2024-05-29] MEDS: sodium bicarbonate 650 mg Tablet PO ×3 (08:38→20:38)
[2024-05-29] MEDS: midodrine 5 mg TABLET 10 MG PO ×3 (08:38→20:38)
[2024-05-29] MEDS: doxycycline 100 mg Tablet PO (08:39)
[2024-05-29] MEDS: magnesium sulfate premix 2 GM/50 ML PIGGYBACK IV (08:48)
--- NOTE | 2024-05-29 10:25 | PC.NURSE ---
Transfusion complete. Pt tolerated well. No reaction noted. Spouse at bedside. Bed bath and linen change complete. Weeping edema noted to left upper arm AC where old IV removed. Significant edema noted to both upper arms and lower legs. Tubigrip applied to upper extremities and elevated on pillows to assist with decrease of swelling. Stool and urine samples obtained and sent to lab per [facility]. Pt resting quietly with call light within reach.
[2024-05-29 10:41] LABS: Bilirubin Urine Negative (Negative); Blood Urine 3+ (Negative); Glucose Urine UA Negative (Normal); Ketones Urine Trace (Negative); Leukocyte Esterase Urine 2+ (Negative); Nitrate Urine Negative (Negative); Protein Urine 1+ (Negative); Specific Gravity, Urine 1.023 (1.005-1.030); Urine Appearance Turbid (CLEAR); Urine Color Yellow (Yellow)
[2024-05-29 10:48] LABS: Add Urine Microscopic? YES; Bacteria Urine None Seen /hpf; Hyaline Casts Urine 14.87 /lpf; RBC Urine >100 /hpf (0-2); Squamous Epithelial Cell Urine 0-5 /hpf (0-5); WBC Urine >100 /hpf (0-5)
[2024-05-29 10:57] LABS: Hematocrit 21.4 % (36-47)
[2024-05-29 11:09] LABS: UA Slide Review UA Slide Review Perf
[2024-05-29 11:11] LABS: Add Urine Culture? Yes
--- NOTE | 2024-05-29 11:34 | PC.NURSE ---
Second unit PRBC's infusing as ordered. VSS. No reaction noted. Will continue to monitor. Resting quietly with call light within reach.
--- NOTE | 2024-05-29 11:39 | US_ITS ---
WS: [id number] ULTRASOUND PELVIS TECHNIQUE: Transabdominal. CLINICAL INFORMATION: pelvic ascites, hx of vag bleeding FINDINGS: Prior hysterectomy Adnexa: No adnexal masses visualized. Free fluid: Pelvic ascites Other findings: None. US/US pelvic complete* [id number] IMPRESSION: 1. Prior hysterectomy. 2. Pelvic ascites. 3. No adnexal masses visualized 4. Graham catheter
[2024-05-29] MEDS: cefepime 2,000 mg SDV 2000 MG IVP (13:11)
--- NOTE | 2024-05-29 13:12 | PC.SOCIAL ---
IMM Updated Updated pt on IMM. No questions voiced. Provided pt a copy. Initialed, dated, & timed a copy & placed in chart.
--- NOTE | 2024-05-29 13:39 | PHA.VACGOAL ---
Vancomycin Goal - Goal Vancomycin Goal:: 15-20 mg/L Vancomycin Indication:: Pneumonia - Therapy Current therapy:: Cefepime Day of therpy:: Day []of [] . Actual body weight (kg): 192 lb 14.472 oz - Data Labs: WBC 4.02 10^3/uL (3.29-11.43) 05/29/24 04:36 RBC 1.88 10^6/uL (3.85-5.65) L 05/29/24 04:36 Hgb 6.50 g/dL (11.27-16.99) L* 05/29/24 10:42 Hct 21.4 % (36-47) L 05/29/24 10:42 MCV 102.1 fl (85-98) H 05/29/24 04:36 MCH 30.3 pg (27-33) 05/29/24 04:36 MCHC 29.7 g/dL (30-55) L 05/29/24 04:36 RDW 19.2 % (12.1-15.1) H 05/29/24 04:36 Sodium 144 mmol/L (136-145) 05/29/24 04:36 Potassium 3.4 mmol/L (3.5-5.1) L 05/29/24 04:36 Chloride 115 mmol/L (98-107) H 05/29/24 04:36 Carbon Dioxide 18 mmol/L (22-29) L 05/29/24 04:36 Anion Gap 14.4 (5-19) 05/29/24 04:36 BUN 30 mg/dL (8-23) H 05/29/24 04:36 Creatinine 1.5 mg/dL (0.5-0.9) H 05/29/24 04:36 GFR Calculation Not Reportable 05/29/24 04:36 Last dialysis session:: N/A Treatment plan:: new consult Regimen:: Loading dose of 2500 mg given per dosing protocol. Maintenance dose of 1250 mg Q24H Follow up:: Will continue to monitor and follow up daily.
--- NOTE | 2024-05-29 14:17 | P.PN_ITS ---
Subjective 2 Subjective: Seen this morning. CT reviewed. Patient has not required levo On albumin and midodrine at this time. Patient laying in bed with at bedside. Overnight hemoglobin dropped to 5. 2 units packed RBC ordered. Lactic acid elevated yesterday however normalized later on. 1 out of 4 bottles blood pressure positi ve for Corynebacterium Vitals/I&O/Wt Last Vital Signs Temp 98.2 F 05/29/24 13:57 Pulse 98 05/29/24 13:57 Resp 16 05/29/24 13:57 BP 106/69 05/29/24 13:57 Pulse Ox 97 05/29/24 13:57 O2 Del Method Room Air 05/29/24 13:30 O2 Flow Rate 3 05/27/24 21:56 05/28/24 05/29/24 05/29/24 22:59 06:59 14:59 Intake Total 700 / 940 950 / 1890 866.25 / 866.25 Output Total 275 / 275 400 / 400 Balance 425 / 665 950 / 1615 466.25 / 466.25 Weight last 48 hrs Weight 87.5 kg Weight 86.5 kg Weight 85.5 kg Physical Exam 2 Narrative: General: Alert oriented x3, patient seen laying in bed appearing comfortable at this time, frail elderly female. HEENT: Normocephalic, atraumatic, EOMI, room air. Cardio: Slightly tachycardic upon exertion otherwise regular rate., Somewhat hypotensive. Respiratory: Mainly clear to auscultation bilaterally with diminished breath sounds at bases. GI: Abdomen soft, nontender, nondistended, bowel sounds + Extremities: Upper extremities generally edematous, nonpitting edema Bilateral lower extremity nonpitting edema anasarca present up to knees. Urinary Catheter Management: Graham: Cath Placed During This Visit: yes Reason for Continuing Indwelling Catheter: Accurate Measurement of Urinary Output in Critically Ill Patients Urinary Catheter Date of Insertion: 05/28/24 Urinary Catheter Time of Insertion: 07:25 Data 05/29/24 10:42 05/29/24 04:36 Micro: Microbiology 05/27/24 20:59 Blood Culture - Preliminary Blood Corynebacterium Species 05/29/24 09:55 Occult Blood (FIT) - Final Stool - Stool Aspirate 05/27/24 20:59 Blood Culture - Preliminary Blood NEGATIVE TO DATE A&P Assessment and plan (1) Orthostatic dizziness: (2) CHF exacerbation: (3) Dizziness: (4) Word finding difficulty: (5) Anasarca: (6) Pneumonia: (7) Diastolic heart failure: (8) Slurred speech: (9) Pleural effusion: (10) Esophageal stricture: (11) Hypothyroidism: Qualifiers: Hypothyroidism type: acquired Qualified Code(s): E03.9 - Hypothyroidism, unspecified (12) Depression: Qualifiers: Depression Type: reactive depression Qualified Code(s): F32.9 - Major depressive disorder, single episode, unspecified (13) Hypertension: Qualifiers: Hypertension type: primary hypertension Qualified Code(s): I10 - Essential (primary) hypertension (14) Iron deficiency anemia: (15) Diffuse large b-cell lymphoma, lymph nodes of head, face, and neck: Plan Diastolic CHF respiration Likely related to dyspnea on exertion with bilateral effusion Repeat echo Grade 1 diastolic function noted on echo 2020 No active chest pain Troponin unremarkable EKG showing sinus arrhythmia Start IV diuresis Acute on chronic kidney disease likely cardiorenal dissipating, with diuresis Patient received contrast, monitor for contrast-induced nephropathy. Metabolic acidosis: Start bicarb tablets A-fib RVR Patient takes anticoagulating agent which I will continue, Secondary to chronic kidney disease she takes low-dose Heart rate around 101 Patient is due for her AV marilu blocking agents TSH within good normal range Abnormal D-dimer: No signs of PE Community-acquired pneumonia: Less likely: I do believe bilateral infiltrate related to CHF: Discontinue antibiotics, procalcitonin is also not high, no leukocytosis or fever Full code Cardiac diet DVT prophylaxis: Continue Xarelto 05/28/2024 Echo from 2020 does show grade 1 diastolic dysfunction. We will repeat echo today. Patient shortness of breath most likely secondary to bilateral pleural effusions with adjacent atelectasis. Left lung base can also represent infiltrates possibly?. Will empirically add antibiotics ceftriaxone azithromycin Patient is positive for orthostatics. Diarrhea last few weeks?. Unsure etiology at this time. Patient's bicarb is on the lower side consistent with diarrhea. Creatinine is 1.7 today. Patient may have metabolic acidosis secondary to worsening kidney injury.? Patient does have chronic anasarca. I will stop Lasix at this time and give patient to 50 cc normal saline bolus. He does have a history of diffuse large B cell lymphoma and follows up with oncology for it. As per oncology records it seems that no recurrence of cancer? However she has been reporting slurred speech and word finding difficulty and physical deconditioning requiring the use of a walker. Query brain mets?. At 1 point there was also a questionable mass at the kidney however repeat CT scan did not show it. Given patient's symptoms I we will be ordering MRI brain to rule out posterior circulation stroke, brain mets or any other pathology. Patient does have a history of pulmonary embolism and has an IVC filter in place. She states she has been told she is hypercoagulable and therefore should take a blood thinner. She takes Xarelto at home. Albumin is 2.2. Anasarca most likely secondary to low oncotic pressures. This may also explain her bilateral pleural effusions. We will wait for echo. Patient has baseline creatinine is 1.2/1.3. Continue bicarb 650 3 times daily. I agree patient has anasarca however is dry mucous membranes and very dry lips. Normal saline to 50 cc bolus ordered at this time. May start Levophed as needed I cannot completely rule out community-acquired pneumonia and I agree it is less likely however given patient's history of malignancy I will continue ceftriaxone azithromycin as empiric coverage at this time. Continue Xarelto. She is rate controlled at this time. Patient did receive contrast on admission. Will need to monitor for contrast- induced nephropathy. Recheck BMP every 12 hours. Will consult nephrology. May consider albumin with Lasix. 05/29/2024 Potassium 3.4 today. Lactic order set has normalized. Creatinine 1.5 slightly improved compared to admission which was 1.7. Albumin is low at 2.4. Patient's hemoglobin dropped to 5.6 overnight. Received 2 units of packed RBC. Will check haptoglobin, LDH, reticulocyte count, iron studies FOBT positive. Urinalysis shows greater than 100 RBCs, greater than 100 WBC. 3+ blood in urine. Patient denies vaginal bleeding or hematuria. CT abdomen pelvis shows 1. Moderate volume abdominal ascites. 2. Gaseous distension without dilatation of the transverse colon. No bowel obstruction. 3. Diffuse anasarca. 4. Small bilateral pleural effusions Ultrasound abdomen:: 1. Portal vein appears patent. 2. Fatty liver 3. Large RIGHT renal cyst as seen on the recent CT 4. Cholecystectomy Pelvic ultrasound ordered. Unclear etiology of ascites. Xarelto has been held. Will have to obtain paracentesis. Will order paracentesis. Tentatively scheduled for Monday. Will hold Xarelto x 48 hours. Continue to check CBC every 12 hours. Patient has microscopic hematuria. Unclear etiology. Discussed with oncology at detail. Will obtain fluid analysis of ascites. Nephrology consulted. Continue midodrine, albumin. PDMP PDMP Reviewed: Not Reviewed Attestations 2 Medical Necessity Statement*: Requires further workup of ascites, severe anemia, anasarca, REGINALD Diagnoses Orthostatic dizziness R42 CHF exacerbation I50.9 Dizziness R42 Word finding difficulty R47.89 Anasarca R60.1 Pneumonia J18.9 Diastolic heart failure I50.30 Slurred speech R47.81 Pleural effusion J90 Esophageal stricture K22.2 Acquired hypothyroidism E03.9 Hypothyroidism type: acquired Reactive depression F32.9 Depression Type: reactive depression Primary hypertension I10 Hypertension type: primary hypertension Iron deficiency anemia D50.9 Diffuse large b-cell lymphoma, lymph nodes of head, face, and neck C83.31
[2024-05-29 15:44] LABS: Basophils % 0.2 %; Eosinophils # 0.1 10^3/uL (0.0-0.8); Hematocrit 25.4 % (36-47); Lymphocytes # 1.2 10^3/uL (0.8-4.8); Lymphocytes % 27.6 %; Mean Corpuscular HGB Conc 30.7 g/dL (30-55); Mean Corpuscular Volume 97.7 fl (85-98); Mean Platelet Volume 10.1 fL (7.4-10.4); Monocytes # 0.4 10^3/uL (0.2-0.9); Monocytes % 9.7 %; Neutrophils % 58.5 %; Nucleated Red Blood Cells % 0 %; Platelet Count 108 10^3/cmm (157-399); Red Cell Distribution Width 19.5 % (12.1-15.1); White Blood Count 4.45 10^3/uL (3.29-11.43)
[2024-05-29 15:57] LABS: Reticulocyte % 3.1 % (0.5-2.0)
[2024-05-29 16:08] LABS: Lactate Dehydrogenase 162 U/L (135-214)
--- NOTE | 2024-05-29 16:15 | US_ITS ---
WS: [id number] ULTRASOUND RENAL TECHNIQUE: Ultrasound examination of both kidneys. CLINICAL INFORMATION: microscopic hematuria COMPARISON: CT 05/29/2024 FINDINGS: RIGHT: RIGHT renal cyst measuring 8.2 x 8.3 cm RIGHT upper pole Echogenicity: Normal. Cortical thickness: 1.3 cm; Normal. Hydronephrosis: None. Perinephric fluid: None. Right kidney measures: 10.7 cm x 4.4 cm x 5.0 cm. LEFT: Mild LEFT renal cortical atrophy Echogenicity: Normal. Hydronephrosis: Mild Perinephric fluid: None. Left kidney measures: 8.9 cm x 4.7 cm x 5.4 cm. Normal visualized aorta. Graham catheter. US/US renal BI* [id number] IMPRESSION: 1. Slight LEFT hydronephrosis or prominent renal pelvis. Mild LEFT renal corti tayla atrophy 2. 9 cm RIGHT renal cyst upper pole RIGHT kidney unchanged since the recent CT 3. Graham catheter. 4. Abdominal and pelvic ascites
[2024-05-29 16:20] LABS: LAB Peripheral Smear Sent for Review
--- NOTE | 2024-05-29 16:27 | CTR_ITS ---
PROCEDURE INFORMATION: Exam: CT Abdomen And Pelvis Without Contrast Exam date and time: 05/29/2024 5:24 PM Age: 78 years old Clinical indication: Other: Anemia; Additional info: Acute anemia, , on xarelto, look for retroperitoneal bleed, ascites? Is TECHNIQUE: Imaging protocol: Computed tomography of the abdomen and pelvis without contrast. Radiation optimization: All CT scans at this facility use at least one of these dose optimization techniques: automated exposure control; mA and/or kV adjustment per patient size (includes targeted exams where dose is matched to clinical indication); or iterative reconstruction. COMPARISON: CT abdomen pelvis con [id number] 05/28/2024 3:52 PM RADIATION DOSE METRICS: Total DLP (mGy-cm): 946.33 FINDINGS: Pleural spaces: Small right and trace left pleural effusions. Heart: Heart size is within normal limits. Trace pericardial effusion. Liver: There is diffuse decreased attenuation of the hepatic parenchyma consistent with fatty infiltration. The liver is otherwise normal. There are no hepatic masses identified. Gallbladder and biliary ducts: The gallbladder is surgically absent. There is no ductal dilatation. Pancreas: The pancreas is otherwise normal. Spleen: The spleen is normal. Adrenal glands: The adrenal glands are normal. Kidneys and ureters: No renal calcifications are identified. There is no hydronephrosis. There is mild retained contrast within the renal collecting systems. Stomach and bowel: There is no large or small bowel obstruction. There is no evidence of bowel wall thickening. Appendix: A normal appendix is identified. Intraperitoneal space: Mild increase in moderate ascites. Mildly worsening mesenteric edema. Increasing soft tissue density adjacent to the pancreatic head likely related to worsening mesenteric edema. No pneumoperitoneum. Vasculature: Atherosclerotic calcifications of the aorta are present. No aneurysm is identified. Inferior vena caval filter in place.Mild colonic diverticulosis without diverticulitis. Lymph nodes: No enlarged lymph nodes are identified. Urinary bladder: The bladder is decompressed and contains a Graham catheter. Reproductive: The uterus is absent. Bones/joints: No acute osseous abnormalities are seen. Soft tissues: Worsening moderate anasarca. CT/CT abdomen pelvis con [id number] IMPRESSION: 1. Mild increase in moderate ascites. 2. Worsening moderate anasarca. 3. Mildly worsening mesenteric edema. 4. Increasing soft tissue density adjacent to the pancreatic head likely related to worsening mesenteric edema. Correlate with laboratory evaluation. 5. Otherwise stable CT appearance of the abdomen and pelvis compared to 05/28/2024. COMMENTS: For patients with an IVC filter, recommend assessment for a management plan for the patient's IVC filter. If there is no established management plan, recommend referral to an interventional clinician on a nonemergent basis for evaluation.
[2024-05-29] MEDS: sucralfate 1 gm Tablet PO ×2 (16:49→20:38)
--- NOTE | 2024-05-29 16:59 | P.CONIM_ITS ---
Providers/Reason For Consult 2 Consulting Physician/Specialty*: Dr. Snyder general surgery Reason for Consult*: GI bleed Attending Physician: Yamilet Brown MD Primary Care Provider: Torin Sandhu MD History of Present Illness History of Present Illness Lexy Chawla is a 78 year old female whom surgery was consulted for possible GI bleed. Patient experienced a 5 g/dL drop in her hemoglobin overnight. No explanation for this. No hematochezia or melena. Did test positive for fecal occult blood test. Medications/Allergies Home Medications ?Medication ?Instructions ?Recorded ?Confirmed ?Last Taken ?Type [id number]-[id number]-[id number] ac 400 1 tab PO DAILY 04/09/19/07/2805/26/24 History mcg-calcium carb 500 mg-vit K1 20 mcg tablet (Women's 50 Plus Multivitamin) triamcinolone acetonide 0.1 % 1 applic topical DAILY P RN Skin 06/30/23 05/28/24 01/08/24 History topical cream Irritation ondansetron 4 mg disintegrating See Rx Instructions .R oute 08/28/23 05/28/24 01/08/24 Rx tablet .COMPLEX #60 ea promethazine 25 mg tablet 25 mg PO Q8H PRN Nausea 07/0 04/2905/28/24 01/08/24 History loperamide 2 mg capsule (Imodium 2 mg PO Q8H PRN loose stool #14 09/08/23 05/28/24 01/08/24 Rx A-D) caps dicyclomine 20 mg tablet 20 mg PO BID PRN abdominal 0 09/18/23 05/28/24 05/26/24 Rx cramping #60 tabs levothyroxine 125 mcg tablet 125 mcg PO DAILY #90 tabs 09/18/23 05/28/24 05/26/24 Rx hydrocortisone 2.5 % topical cream See Rx Instructions .Route 10/04/23 05/28/24 01/08/24 Rx with perineal applicator .COMPLEX #30 grams potassium chloride 10 mEq 20 meq (2 x 10 mEq) PO BID # 120 10/16/23 05/28/24 05/26/24 Rx capsule,extended release caps hydrocodone 7.5 mg-acetaminophen 1 tab PO BID PRN pain 30 days #60 12/05/23 05/28/24 01/08/24 Rx 325 mg tablet tabs pantoprazole 40 mg tablet,delayed 40 mg PO DAILY 12/0605/28/24 05/26/24 History release lidocaine 5 % topical ointment 1 applic topical DAILY #50 grams 12/18/23 05/28/24 01/08/24 Rx duloxetine 30 mg capsule,delayed See Rx Instructions . Route 02/12/24 05/28/24 05/26/24 Rx release .COMPLEX #30 caps diclofenac sodium 75 mg See Rx Instructions .Route 0 03/11/24 05/28/24 Unknown Rx tablet,delayed release .COMPLEX #30 tabs metoprolol tartrate 25 mg tablet See Rx Instructions . Route 03/13/24 05/28/24 05/26/24 Rx .COMPLEX #90 tabs ferrous gluconate 324 mg (37.5 mg 324 mg PO BID #60 ta bs 03/18/24 05/28/24 Unknown Rx iron) tablet pregabalin 150 mg capsule 150 mg PO DAILY #60 caps 05/2805/28/24 05/26/24 Rx rivaroxaban 10 mg tablet (Xarelto) 10 mg PO DAILY #90 tabs 05/10/24 05/28/24 05/26/24 Rx Allergies Allergy/AdvReac Type Severity Reaction Status Date / Time clindamycin Allergy chest pain Verified 04/30/24 13:37 Penicillins Allergy rash Verified 04/30/24 13:37 Current Medications Generic Name Dose Route Start Last Admin Trade Name Freq PRN Reason Stop Dose Admin Furosemide 40 mg 05/27/24 23:30 05/27/24 23:58 Furosemide 10 Mg/Ml Sdv 10ml IVP 40 mg Q12H MONA Administration Norepinephrine Bitartrate 4 mg in 250 mls @ 0 mls/hr 05/28/24 12:30 05/29/24 08:43 Levophed IV 0 mcg/min .Q0M MONA 0 mls/hr Titration Protocol Per Protocol Albumin Human 25 g in 100 mls @ 60 mls/hr 05/29/24 08:15 05/29/24 16:49 Albumin IV 60 mls/hr Q8H MONA Administration Levothyroxine Sodium 125 mcg 05/28/24 07:00 05/29/24 06:33 Levothyroxine 125 Mcg Tablet PO 125 mcg ACBREAKFAST MONA Administration Metoprolol Tartrate 25 mg 05/27/24 23:40 05/28/24 08:55 Metoprolol Tartrate 25 Mg Tablet PO 25 mg DAILY MONA Administration Midodrine 10 mg 05/29/24 09:00 05/29/24 14:53 Midodrine 5 Mg Tablet PO 10 mg TID MONA Administration Ondansetron HCl 4 mg 05/27/24 21:55 05/27/24 23:39 Ondansetron 2 Mg/Ml Sdv 2 Ml IVP 4 mg Q6H PRN Administration NAUSEA AND VOMITING Pantoprazole Sodium 40 mg 05/29/24 05:30 05/29/24 16:49 Pantoprazole 40 Mg Sdv IVP 40 mg Q12H MONA Administration Potassium Chloride 40 meq 05/28/24 09:00 05/29/24 08:38 Potassium Chloride Er 20 Meq Tablet PO 40 meq DAILY MONA Administration Rivaroxaban 20 mg 05/28/24 09:00 05/28/24 08:55 Rivaroxaban 10 Mg Tablet PO 20 mg DAILY MONA Administration Senna/Docusate Sodium 1 tab 05/28/24 09:00 05/29/24 08:37 Sennosides-Docusate Tablet PO Not Given DAILY MONA Sodium Bicarbonate 650 mg 05/28/24 09:00 05/29/24 14:53 Sodium Bicarbonate 650 Mg Tablet PO 650 mg TID MONA Administration Sucralfate 1 gm 05/29/24 17:00 05/29/24 16:49 Sucralfate 1 Gm Tablet PO 1 gm AC&BEDTIME MONA Administration PFSH Acute 2 PFSH: Medical History Hypertension Colitis Hypomagnesemia Normal anion gap metabolic acidosis Diarrhea Dehydration Acute renal failure Hemorrhoids Hypokalemia Diffuse large b-cell lymphoma, lymph nodes of head, face, 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 This occurred last night. On exam today no actual bleeding seen anywhere. Stitch from her vault suspension was again noted today on exam. No granulation tissue was noted on exam. However, due to this intermittent reporting of bleeding, I went ahead and removed the stitch. On removal, the stitch appeared to not be attached to anything other than the vaginal wall. Patient still had a urethral caruncle noted with a small spot adjacent to it which is suspicious for possible bleeding from that area. With her being on the Xarelto, she may have bled from either the caruncle or from the stitch in the vagina. Questions were answered. Follow-up as needed. Surgical History History of endoscopy 08/2022 - Dr. Blanton at [facility]. S/P lumpectomy, right breast (01/27/20) H/O excision of mass H/O colonoscopy 2013 H/O esophagogastroduodenoscopy 2018 History of laparotomy (~1996) left ovarian cystectomy Hx of hysterectomy (~04/08/14) with vaginal repair------- TVH, LSO, Uterosacral ligament suspension, Anterior vaginal repair, Perineorrhaphy, Single incision suburethral sling, Cystoscopy, Lysis of bowel adhesions. 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 Performed by Dr. Remi Musa at [facility] in [place], [place]. Surgical findings: Third degree cystocele, second to third degree uterine prolapse, adhesions of the sigmoid to the left fundal portion of the uterus and to the left ovary, left ovarian cyst present. History of surgery on right wrist (~12/2010) Hx of cholecystectomy (~02/2005) Laparoscopic. Performed by Dr. Blanton at [facility] in [place], [place]. History of bunionectomy (~2001) left H/O ovarian cystectomy (~1996) Left-- Laparotomy Hx of breast biopsy (~1993) 1993-- 1 cyst removed from left breast and 2 cysts removed from right breast. All pathologies were benign. History of tonsillectomy and adenoidectomy (~1951) Family History Grandfather Diabetes Maternal Mother Breast cancer dx at age 45 Denies family history of Colon cancer Ovarian cancer Heart disease Hypercholesteremia Anesthesia complication Bleeding disorder Hypertension Uterine cancer Thyroid disease Stroke Social History Smoking and tobacco/nicotine status: never used tobacco/nicotine Vitals/I&O/Wt Last Vital Signs Temp 98.2 F 05/29/24 13:57 Pulse 92 05/29/24 16:15 Resp 17 05/29/24 16:15 BP 115/74 05/29/24 16:15 Pulse Ox 98 05/29/24 16:15 O2 Del Method Room Air 05/29/24 16:15 O2 Flow Rate 3 05/27/24 21:56 05/29/24 05/29/24 05/29/24 06:59 14:59 22:59 Intake Total 950 / 1890 866.25 / 866.25 Output Total 400 / 400 400 / 800 Balance 950 / 1615 466.25 / 466.25 -400 / 66.25 Weight last 48 hrs Weight 192 lb 14.472 oz Weight 190 lb 11.198 oz Weight 188 lb 7.924 oz Physical Exam 2 Narrative: Chest: Unlabored breathing room air. No lymphadenopathy. Heart: Regular rate and rhythm. Abdomen: Soft, nontender, nondistended. No masses or lymphadenopathy. Urinary Catheter Management: Graham: Cath Placed During This Visit: yes Reason for Continuing Indwelling Catheter: Accurate Measurement of Urinary Output in Critically Ill Patients Urinary Catheter Date of Insertion: 05/28/24 Urinary Catheter Time of Insertion: 07:25 Data 05/29/24 19:55 05/29/24 04:36 Micro: Microbiology 05/29/24 15:27 Blood Culture - Preliminary Blood SPECIMEN COLLECTED 05/29/24 15:24 Blood Culture - Preliminary Blood SPECIMEN COLLECTED 05/27/24 20:59 Blood Culture - Preliminary Blood Corynebacterium Species 05/29/24 09:55 Occult Blood (FIT) - Final Stool - Stool Aspirate 05/27/24 20:59 Blood Culture - Preliminary Blood NEGATIVE TO DATE A&P Assessment and plan (1) GI bleed: Plan 78-year-old female consulted for GI bleed. Patient requires endoscopy as part of the workup. She requires prep for the colonoscopy part. As of now GI Lab is not available to perform the endoscopy programmer analyst consultant on 05/30/2024. There are also no surgeons available for endoscopy after 7 AM. Recommend transfer for GI bleed workup. Discussed with hospitalist. PDMP PDMP Reviewed: Not Reviewed Coding Level of Care Code 61671 Diagnoses GI bleed K92.2
--- NOTE | 2024-05-29 16:59 | PM.MISC ---
Miscellaneous Note Note: Full consult note to follow. Consulted for anemia in the setting of acute on chronic renal failure and unexplained hgb drop to 5 g/dL. Patient needs EGD/colonoscopy as part of her workup. She needs to be prepped for the colonoscopy portion. No GI lab availability 05/30 AM. As of now, no available surgeon to perform scope after 05/30 after 0700.
[2024-05-29 17:46] LABS: Iron 25 ug/dL (37-145); Total Iron Binding Capacity 125 mcg/dl; Unsaturated Iron Binding 100 ug/dL (112-347)
[2024-05-29] MEDS: loperamide 2 mg Capsule PO (18:22)
[2024-05-29 20:00] LABS: Hematocrit 25.1 % (36-47)
--- NOTE | 2024-05-29 20:18 | PC.NURSE ---
HGB Dr. Maharaj notified of patient's current hgb 7.9. Order received to hold 3rd unit of blood until further notice.
[2024-05-30] VITALS (50 sets, daily range): BP systolic 91–131; BP diastolic 55–86; PULSE 93–118; RESP 9–30; TEMP 36.7–36.9; O2SAT 93–100
[2024-05-30 03:50] LABS: Basophils % 0.3 %; Eosinophils # 0.1 10^3/uL (0.0-0.8); Eosinophils % 2.3 %; Hematocrit 23.7 % (36-47); Mean Corpuscular HGB Conc 30.8 g/dL (30-55); Mean Corpuscular Hemoglobin 29.7 pg (27-33); Mean Corpuscular Volume 96.3 fl (85-98); Mean Platelet Volume 10.4 fL (7.4-10.4); Monocytes # 0.4 10^3/uL (0.2-0.9); Monocytes % 9.2 %; Neutrophils # 2.31 10^3/uL (1.8-7.7); Neutrophils % 58.6 %; Nucleated Red Blood Cells % 0 %; Platelet Count 113 10^3/cmm (157-399); Red Blood Count 2.46 10^6/uL (3.85-5.65); Red Cell Distribution Width 20.1 % (12.1-15.1); White Blood Count 3.93 10^3/uL (3.29-11.43)
[2024-05-30 04:14] LABS: Alanine Aminotransferase 10 U/L (0-33); Albumin Level 3.1 g/dL (3.5-5.2); Alkaline Phosphatase 67 U/L (35-105); Anion Gap 17.9 (5-19); Aspartate Amino Transferase 21 U/L (0-32); Blood Urea Nitrogen 24 mg/dL (8-23); Calcium 7.3 mg/dL (8.5-10.5); Carbon Dioxide 16 mmol/L (22-29); Chloride 116 mmol/L (98-107); Globulin 0.9 g/dL (1.3-4.6); Glucose 61 mg/dL (65-115); Osmolality Calculated 304 mOsm/kg (285-295); Potassium 3.9 mmol/L (3.5-5.1); Sodium 146 mmol/L (136-145); Total Bilirubin 0.7 mg/dL (0.15-1.2)
[2024-05-30] MEDS: glucagon 1 mg/mL KIT 1 mL IM (04:44)
--- NOTE | 2024-05-30 04:45 | PC.NURSE ---
Glucose, HGB Patient's blood glucose 65. Furthermore, patient's hgb dropped to 7.[address] Maharaj notified; order received to administer 1 mg glucagon IM once, let her drink juice, and transfuse 1 unit PRBCs.
[2024-05-30 05:14] LABS: Glucose Point of Care 85 mg/dL (70-110)
[2024-05-30] MEDS: pantoprazole 40 mg SDV IVP ×2 (05:56→17:19)
[2024-05-30] MEDS: levothyroxine 125 mcg Tablet PO (06:03)
[2024-05-30] MEDS: sucralfate 1 gm Tablet PO ×4 (06:03→20:03)
[2024-05-30 08:03] LABS: Glucose Point of Care 65 mg/dL (70-110)
[2024-05-30 08:03] LABS: Glucose Point of Care 81 mg/dL (70-110)
[2024-05-30 08:03] LABS: Glucose Point of Care 81 mg/dL (70-110)
[2024-05-30] MEDS: albumin 25 G/100 ML BAG 60 G IV ×3 (08:16→17:18)
[2024-05-30] MEDS: sodium bicarbonate 650 mg Tablet PO ×3 (08:17→20:03)
[2024-05-30] MEDS: potassium chloride ER 20 mEq Tablet 40 MEQ PO (08:18)
[2024-05-30] MEDS: midodrine 5 mg TABLET 10 MG PO ×3 (08:18→20:03)
--- NOTE | 2024-05-30 08:45 | PM.TDS ---
Transfer Summary Providers Date of Admission: 05/27/24 20:17 Date of Discharge/Transfer: 05/30/24 Attending Provider at Admission: Jacob Maharaj MD Attending Provider at Transfer: Yamilet Brown MD Primary Care Provider: Torin Sandhu MD Transfer Plans: Anticipated date of transfer: 05/30/24. Receiving Facility: [facility]. Receiving Provider: Dr. Schultz. Diagnoses at Discharge Discharge Diagnosis (1) GI bleed: Status: Acute Reason for Visit Reason for Visit WEAKNESS Brief History: As per Dr. Maharaj Lexy Chawla is a 78 year old female with history of dvt, chronic anticoagulation, lives with her , presented to the hospital for low extremity weakness, word find difficulty and dyspnea on exertion. Patient is stating that for last 1 week she has been noticing generalized weakness and fatigue in last 48 hours it has worsened to the point that she was not able to get out of her bed, she has not noticed any stroke related features, but she was concerned about word finding difficulty, she has not noticed any chest pain, fever, diarrhea etc. patient denies previous history of MN, PCI. She is compliant with her medications. Endorsing weight gain. 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 She says that she has been feeling fatigued and weak for the last 48 hours and unable to sit up or walk without experiencing dizziness. She was admitted for diastolic CHF exacerbation. Patient does have bilateral pleural effusions. Grade 1 diastolic dysfunction. Troponins unremarkable. Lactic acid was elevated at admission. Patient takes low-dose Xarelto secondary to CKD. She is not on any AV marilu blocking agents. Chest x-ray did show community-acquired pneumonia. She was on antibiotics. Patient continued to complain of slurred speech and dizziness. Orthostatic vitals were positive. On chart review it seems that patient has had dizziness and lightheadedness and low blood pressures in the past as well. She follows with oncology. As per patient was able to ambulate on her own however for the last 1 months she has been using a walker. Most likely secondary to worsening lower extremity edema. Patient has been unable to give me exact timeline of when edema may have started. There was also some report of diarrhea however patient unable to give me much details. She has been denying having diarrhea every day however as per nursing staff she has been having watery diarrhea intermittently. C. difficile is negative. Stool culture ova parasite screen is pending. Further workup was pursued with MRI brain to rule out brain mets or stroke. That study was negative. Empiric antibiotics ceftriaxone azithromycin added for possible pneumonia. She does have chronic anasarca. Initially required fluids secondary to orthostasis. Lasix from admission was held. 48 hours into admission patient developed acute anemia with hemoglobin down to 5.6. So far she has required 3 units of blood. Xarelto has been stopped. Urinalysis shows 1+ protein. Nephrotic syndrome unlikely. CT abdomen pelvis did show moderate ascites. Etiology unknown. Pelvic ultrasound pursued and negative. CT abdomen pelvis negative for malignancy. Discussed with oncology. Plan to obtain paracentesis and check fluid analysis. Will rule out malignancy. She does have worsening anasarca. She has been continued on albumin, midodrine. REGINALD also present on admission. Possible cardiorenal syndrome?. FOBT is positive. There is no other source of bleeding at this time. Patient denies hematochezia, hematuria, hemoptysis, hematemesis. There does seem to be microscopic hematuria on urinalysis. No gross blood noted. Patient will need EGD colonoscopy going forward. General surgery consulted and agree with the workup at this time. However our hospital does not have general surgery coverage and for EGD colonoscopy we will need to transfer patient to higher level of care. Discussed case with hospitalist at [facility] and we will transfer patient in stable condition. We will start on Lasix today to start to diurese patient as blood pressure his stable. Hemoglobin 7.6 this morning. Physical Exam Narrative: General: Alert oriented x3, patient seen laying in bed appearing comfortable at this time, frail elderly female. laying in bed appearing comfortable. just finished with paracentesis, HEENT: Normocephalic, atraumatic, EOMI, room air. Cardio: normal s1, s2, RRR Respiratory: Mainly clear to auscultation bilaterally with diminished breath sounds at bases. GI: Abdomen soft, nontender, nondistended, bowel sounds + Extremities: Upper extremities generally edematous, nonpitting edema Bilateral lower extremity nonpitting edema anasarca present up to knees. Generalized anasarca Urinary Catheter Management: Graham: Cath Placed During This Visit: yes Reason for Continuing Indwelling Catheter: Accurate Measurement of Urinary Output in Critically Ill Patients Urinary Catheter Date of Insertion: 05/28/24 Urinary Catheter Time of Insertion: 07:25 TS Data Studies Completed and Pending Pending at discharge Category Date Time Status Amylase, Peritoneal Fluid Routine Lab 05/29/24 14:26 Ordered Albumin Body Fluid Routine Lab 05/29/24 14:26 Ordered Anaerobic Culture Routine Lab 05/29/24 14:26 Ordered Blood Culture Stat Lab 05/27/24 20:59 Results Blood Culture Stat Lab 05/29/24 15:27 Results Body Fluid Analysis Routine Lab 05/29/24 14:26 Ordered Body Fluid Culture & GS Routine Lab 05/29/24 14:26 Ordered Body Fluid Specific [place] Routine Lab 05/29/24 14:26 Ordered CBC Auto Diff [Complete Blood Count w/Auto] Q12H Lab 05/30/24 14:10 Ordered CBC Auto Diff [Complete Blood Count w/Auto] Q12H Lab 05/31/24 02:10 Ordered Cholesterol Body Fluid Routine Lab 05/29/24 14:26 Ordered Cyto Order Verification Routine Lab 05/29/24 14:26 Ordered Fluid Alkaline Phos. Routine Lab 05/29/24 14:26 Ordered Glucose Body Fluid Routine Lab 05/29/24 14:26 Ordered Hemoglobin and Hematocrit Timed Lab 05/30/24 09:20 Ordered LDH Body Fluid Routine Lab 05/29/24 14:26 Ordered Mycobacteria, Culture w/Fluor Routine Lab 05/29/24 14:26 Ordered OVA and Parasites, Conc and PE Routine Lab 05/28/24 15:35 Received Sputum Culture and Gram Stain Stat Lab 05/28/24 12:27 Uncollected Stool Culture - Enteric [Salmonella / Shigella / Campy] Lab 05/28/24 15:35 Received Routine Total Protein Body Fluid Routine Lab 05/29/24 14:26 Ordered Triglycerides Body Fluid Routine Lab 05/29/24 14:26 Ordered Uric Acid Body Fluid Routine Lab 05/29/24 14:26 Ordered Urine Culture Routine Lab 05/29/24 09:54 Received pH Body Fluid Routine Lab 05/29/24 14:26 Ordered Cytology [PTH] Routine Pth 05/29/24 14:26 Ordered [place] w [id number] Routine Ultrasound 05/30/24 14:26 Taken Completed Studies During Hospitalization Category Date Time Status CT abdomen pelvis wo con [id number] Stat Cat Scan 05/28/24 14:[address] abdomen pelvis wo con [id number] Stat Cat Scan 05/29/24 16:[address] head wo con* [id number] Stat Cat Scan 05/27/24 18:12 Completed CTA chest [CT angio chest PE protcl [id number]] Stat Cat Scan 05/27/24 18:33 Completed CXRP [XR chest 1V portable [id number]] Routine Exams 05/28/24 13:28 Completed XR chest 1V portable [id number] Stat Exams 05/27/24 18:12 Completed MR head wo con* [id number] Urgent MRI 05/28/24 11:55 [place] [id number] Routine Ultrasound 05/29/24 06:29 Completed CV. echo complete* [id number] Routine Ultrasound 05/28/24 21:55 Completed US abdomen complete* [id number] Stat Ultrasound 05/29/24 08:19 Completed US pelvic complete* [id number] Urgent Ultrasound 05/29/24 11:39 Completed US renal BI* [id number] Routine Ultrasound 05/29/24 16:15 Completed Laboratory Last Values WBC 3.93 10^3/uL (3.29-11.43) 05/30/24 02:52 RBC 2.46 10^6/uL (3.85-5.65) L 05/30/24 02:52 Hgb 7.30 g/dL (11.27-16.99) L 05/30/24 02:52 Hct 23.7 % (36-47) L 05/30/24 02:52 MCV 96.3 fl (85-98) 05/30/24 02:52 MCH 29.7 pg (27-33) 05/30/24 02:52 MCHC 30.8 g/dL (30-55) 05/30/24 02:52 RDW 20.1 % (12.1-15.1) H 05/30/24 02:52 Plt Count 113 10^3/cmm (157-399) L 05/30/24 02:52 MPV 10.4 fL (7.4-10.4) 05/30/24 02:52 Neut % (Auto) 58.6 % 05/30/24 02:52 Lymph % (Auto) 26.0 % 05/30/24 02:52 [place] % (Auto) 9.2 % 05/30/24 02:52 Eos % (Auto) 2.3 % 05/30/24 02:52 Baso % (Auto) 0.3 % 05/30/24 02:52 Reticulocyte % (Auto) 3.1 % (0.5-2.0) H 05/29/24 15:24 Neut # (Auto) 2.31 10^3/uL (1.8-7.7) 05/30/24 02:52 Lymph # (Auto) 1.0 10^3/uL (0.8-4.8) 05/30/24 02:52 [place] # (Auto) 0.4 10^3/uL (0.2-0.9) 05/30/24 02:52 Eos # (Auto) 0.1 10^3/uL (0.0-0.8) 05/30/24 02:52 Baso # (Auto) 0.0 10^3/uL (0.0-0.1) 05/30/24 02:52 Nucleated RBC % (auto) 0 % 05/30/24 02:52 Nucleated RBCs # 0.0 /100WBC 05/30/24 02:52 Peripher Smr Path Cons Sent for review 05/29/24 15:24 Haptoglobin 55.0 mg/L (30-200) 05/29/24 15:24 PT 16.60 SECONDS (12.1-14.9) H 05/27/24 18:18 INR 1.25 (0.8-1.2) H 05/27/24 18:18 D-Dimer 2.42 ug/mLFEU (0-0.59) H 05/27/24 18:18 Sodium 146 mmol/L (136-145) H 05/30/24 02:52 Potassium 3.9 mmol/L (3.5-5.1) 05/30/24 02:52 Chloride 116 mmol/L (98-107) H 05/30/24 02:52 Carbon Dioxide 16 mmol/L (22-29) L 05/30/24 02:52 Anion Gap 17.9 (5-19) 05/30/24 02:52 BUN 24 mg/dL (8-23) H 05/30/24 02:52 Creatinine 1.3 mg/dL (0.5-0.9) H 05/30/24 02:52 GFR Calculation Not Reportable 05/30/24 02:52 Glucose 61 mg/dL (65-115) L 05/30/24 02:52 POC Glucose 81 mg/dL (70-110) 05/30/24 07:08 Calculated Osmolality 304 mOsm/kg (285-295) H 05/30/24 02:52 Lactic Acid 2.9 mmol/L (0.5-2.2) H 05/28/24 13:01 Lactic Acid (Sepsis) 1.3 mmol/L (0.5-2.2) 05/28/24 14:59 Calcium 7.3 mg/dL (8.5-10.5) L 05/30/24 02:52 Magnesium 2.0 mg/dL (1.7-2.3) 05/30/24 02:52 Iron 25 ug/dL (37-145) L 05/28/24 04:45 TIBC 125 mcg/dl 05/28/24 04:45 % Saturation 20.0 % (20-50) 05/28/24 04:45 Unsat Iron Binding 100 ug/dL (112-347) L 05/28/24 04:45 Total Bilirubin 0.7 mg/dL (0.15-1.2) 05/30/24 02:52 AST 21 U/L (0-32) 05/30/24 02:52 ALT 10 U/L (0-33) 05/30/24 02:52 Alkaline Phosphatase 67 U/L (35-105) 05/30/24 02:52 Lactate Dehydrogenase 162 U/L (135-214) 05/29/24 15:24 Troponin T Baseline 22 ng/L (0-10) H 05/27/24 18:18 Troponin T 120 Minute 22.67 ng/L (0-10) H 05/27/24 20:54 Delta Troponin T 0.67 ABS# (0-10) 05/27/24 20:54 Troponin T Hi Sens 6Hr 26.50 ng/L (0-10) H 05/28/24 00:25 Troponin T Hi Sens 6Hr Delta 4.50 ng/L (0-12) 05/28/24 00:25 NT-Pro-B Natriuret Pep 1239 pg/mL (0-450) H 05/27/24 18:18 Total Protein 4.0 g/dL (6.6-8.7) L 05/30/24 02:52 Albumin 3.1 g/dL (3.5-5.2) L 05/30/24 02:52 Globulin 0.9 g/dL (1.3-4.6) L 05/30/24 02:52 Lipase 10 U/L (13-60) L 05/27/24 18:18 Vitamin B12 1913 pg/mL (232-1245) H 05/27/24 20:54 Procalcitonin 0.19 ng/mL (0-0.5) 05/27/24 20:54 TSH 3.89 uIU/mL (0.27-4.20) 05/27/24 18:18 Urine Color Yellow (Yellow) 05/29/24 09:54 Urine Appearance Turbid (CLEAR) A 05/29/24 09:54 Urine pH 5.0 (5-7) 05/29/24 09:54 Ur Specific [place] 1.023 (1.005-1.030) 05/29/24 09:54 Urine Protein 1+ (Negative) A 05/29/24 09:54 Urine Glucose (UA) Negative (Normal) 05/29/24 09:54 Urine Ketones Trace (Negative) 05/29/24 09:54 Urine Blood 3+ (Negative) A 05/29/24 09:54 Urine Nitrate Negative (Negative) 05/29/24 09:54 Urine Bilirubin Negative (Negative) 05/29/24 09:54 Urine Urobilinogen 1.0 mg/dL (Negative) 05/29/24 09:54 Ur Leukocyte Esterase 2+ (Negative) A 05/29/24 09:54 Urine RBC >100 /hpf (0-2) H 05/29/24 09:54 Urine WBC >100 /hpf (0-5) H 05/29/24 09:54 Ur Squamous Epith Cells 0-5 /hpf (0-5) 05/29/24 09:54 Amorphous Sediment Not Reportable 05/29/24 09:54 Urine Bacteria None seen /hpf (NONE) 05/29/24 09:54 Hyaline Casts 14.87 /lpf 05/29/24 09:54 C. difficile (PCR) Negative (Negative) 05/28/24 15:35 Blood Type A Negative 05/29/24 05:36 Rho(D) Type Rh negative 05/29/24 05:36 Antibody Screen Negative 05/29/24 05:36 MARIBELL, IgG Interpret Negative 05/29/24 10:42 MARIBELL, Poly Interpret Pos-polyspecific 05/29/24 10:42 MARIBELL, Complement Interp Pos-complement 05/29/24 10:42 Crossmatch See Detail 05/29/24 05:[address] 05/27/24 18:12 IMPRESSION: No acute intracranial process. Senescent changes. If there is continued clinical concern for an acute ischemic event then follow up with a brain MRI examination. Chest CTA 05/27/24 18:33 IMPRESSION: 1. No pulmonary embolism. 2. Moderate bilateral pleural effusions with adjacent atelectasis. Additional opacities in the left lung base can also represent infiltrates in the appropriate clinical setting. 3. Asymmetric nodular density in the left breast including overlying cutaneous thickening. Correlate with mammogram. 4. Mildly prominent main pulmonary artery trunk diameter which can be seen in the setting of pulmonary hypertension. 5. Anasarca. 6. Hepatic steatosis. Head MRI 05/28/24 11:55 IMPRESSION: No acute findings. Chest X-Ray 05/28/24 13:28 IMPRESSION: 1. Right-sided PICC line probably ending in the RIGHT atrium. The line could be retracted 3 to 4 cm for optimal position. Abdomen Ultrasound 05/29/24 08:19 IMPRESSION: 1. Portal vein appears patent. 2. Fatty liver 3. Large RIGHT renal cyst as seen on the recent CT 4. Cholecystectomy Pelvis Ultrasound 05/29/24 11:39 IMPRESSION: 1. Prior hysterectomy. 2. Pelvic ascites. 3. No adnexal masses visualized 4. Graham catheter Renal Ultrasound 05/29/24 16:15 IMPRESSION: 1. Slight LEFT hydronephrosis or prominent renal pelvis. Mild LEFT renal cortical atrophy 2. 9 cm RIGHT renal cyst upper pole RIGHT kidney unchanged since the recent CT 3. Graham catheter. 4. Abdominal and pelvic ascites Abdomen/Pelvis CT 05/29/24 16:27 IMPRESSION: 1. Mild increase in moderate ascites. 2. Worsening moderate anasarca. 3. Mildly worsening mesenteric edema. 4. Increasing soft tissue density adjacent to the pancreatic head likely related to worsening mesenteric edema. Correlate with laboratory evaluation. 5. Otherwise stable CT appearance of the abdomen and pelvis compared to 05/28/2024. COMMENTS: For patients with an IVC filter, recommend assessment for a management plan for the patient's IVC filter. If there is no established management plan, recommend referral to an interventional clinician on a nonemergent basis for evaluation. Recent Clincial Data Last Vital Signs Temp 98.0 F 05/30/24 08:30 Pulse 110 H 05/30/24 08:30 Resp 18 05/30/24 08:30 BP 113/86 05/30/24 08:30 Pulse Ox 98 05/30/24 08:30 O2 Del Method Room Air 05/30/24 07:30 O2 Flow Rate 3 05/27/24 21:56 Vital Signs Temp Pulse Resp BP Pulse Ox O2 Del Method 05/30/24 08:30 98.0 F 110 H 18 113/86 98 05/30/24 07:30 107 H 14 117/74 98 Room Air 05/30/24 07:00 98 9 L 101/65 98 05/30/24 06:52 98.2 F 110 H 18 101/65 96 05/30/24 06:30 102 H 9 L 116/70 100 05/30/24 06:00 108 H 12 100/66 96 05/30/24 06:00 110 H 05/30/24 05:52 98.3 F 110 H 12 100/66 96 05/30/24 05:37 98.5 F 111 H 12 100/66 97 05/30/24 05:30 108 H 15 106/63 97 05/30/24 05:22 98.2 F 109 H 11 L 106/63 98 05/30/24 05:00 110 H 22 H 106/68 98 05/30/24 04:30 111 H 20 H 111/65 96 05/30/24 04:00 111 H 22 H 107/66 96 05/30/24 03:30 110 H 10 L 116/67 97 05/30/24 03:00 107 H 12 105/67 97 05/30/24 02:31 100 11 L 106/66 96 05/30/24 02:01 105 H 12 105/68 95 05/30/24 01:31 93 13 116/68 96 05/30/24 01:01 98.2 F 107 H 13 104/68 97 Room Air 05/30/24 00:30 103 H 16 123/76 96 05/30/24 00:00 105 H 15 100/64 93 05/29/24 23:30 90 14 98/50 94 05/29/24 23:00 104 H 13 93/53 93 05/29/24 22:30 100 22 H 98/61 93 05/29/24 22:00 111 H 17 120/74 98 05/29/24 22:00 103 H 05/29/24 21:30 101 H 19 H 111/64 96 05/29/24 21:00 105 H 12 109/75 97 Intake & Output/Weight 05/28/24 05/29/24 05/30/24 05/31/24 06:59 06:59 06:59 06:59 Intake Total 250 / 250 1890 / 1890 1184.25 / 1184.25 350 / 350 Output Total 500 / 500 275 / 275 1425 / 1425 Balance -250 / -250 1615 / 1615 -240.75 / -240.75 350 / 350 Weight 86.5 kg 87.5 kg 88 kg Vitals Last Vital Signs Temp 98.0 F 05/30/24 08:30 Pulse 110 H 05/30/24 08:30 Resp 18 05/30/24 08:30 BP 113/86 05/30/24 08:30 Pulse Ox 98 05/30/24 08:30 O2 Del Method Room Air 05/30/24 07:30 O2 Flow Rate 3 05/27/24 21:56 TS Medications Medications Acetaminophen (Acetaminophen 500 Mg Tablet) 500 mg PO Q4H PRN PRN Reason: fever Hydrocodone Bitart/Acetaminophen (Hydrocodone-Acetaminophen 7.5-325 Mg Tablet) 1 tab PO BID PRN PRN Reason: pain Albuterol/Ipratropium (Ipratropium-Albuterol 3 Ml Neb) 3 ml INHALATION Q6H.RESP PRN PRN Reason: SHORTNESS OF BREATH Cefepime HCl (Cefepime 1,000 Mg Sdv) 1,000 mg IVP Q12H [facility]; Protocol Last Admin: 05/30/24 00:00 Dose: 1,000 mg Furosemide (Furosemide 10 Mg/Ml Sdv 10ml) 40 mg IVP Q12H [facility] Last Admin: 05/27/24 23:58 Dose: 40 mg Norepinephrine Bitartrate (Levophed) 4 mg in 250 mls @ 0 mls/hr IV .Q0M [facility]; Protocol Last Titration: 05/29/24 08:43 Dose: 0 mcg/min, 0 mls/hr Albumin Human (Albumin) 25 g in 100 mls @ 60 mls/hr IV Q8H [facility] Last Admin: 05/30/24 08:16 Dose: 60 mls/hr Vancomycin HCl (Vancocin) 1,250 mg in 250 mls @ 166.667 mls/hr IV Q24H [facility] Dextrose (D5w) 1,000 mls @ 30 mls/hr IV .Q24H [facility] Levothyroxine Sodium (Levothyroxine 125 Mcg Tablet) 125 mcg PO ACBREAKFAST [facility] Last Admin: 05/30/24 06:03 Dose: 125 mcg Metoprolol Tartrate (Metoprolol Tartrate 25 Mg Tablet) 25 mg PO DAILY [facility] Last Admin: 05/28/24 08:55 Dose: 25 mg Midodrine (Midodrine 5 Mg Tablet) 10 mg PO TID [facility] Last Admin: 05/30/24 08:18 Dose: 10 mg Ondansetron HCl (Ondansetron 2 Mg/Ml Sdv 2 Ml) 4 mg IVP Q6H PRN PRN Reason: NAUSEA AND VOMITING Last Admin: 05/27/24 23:39 Dose: 4 mg Pantoprazole Sodium (Pantoprazole 40 Mg Sdv) 40 mg IVP Q12H [facility] Last Admin: 05/30/24 05:56 Dose: 40 mg Potassium Chloride (Potassium Chloride Er 20 Meq Tablet) 40 meq PO DAILY [facility] Last Admin: 05/30/24 08:18 Dose: 40 meq Rivaroxaban (Rivaroxaban 10 Mg Tablet) 20 mg PO DAILY [facility] Last Admin: 05/28/24 08:55 Dose: 20 mg Senna/Docusate Sodium (Sennosides-Docusate Tablet) 1 tab PO DAILY [facility] Last Admin: 05/30/24 08:18 Dose: Not Given Sodium Bicarbonate (Sodium Bicarbonate 650 Mg Tablet) 650 mg PO TID [facility] Last Admin: 05/30/24 08:17 Dose: 650 mg Sodium Chloride (Sodium Chloride 0.9% 100 Ml Bag) 50 ml IV PRN PRN PRN Reason: Blood transfusion prime and flush Stop: 05/30/24 11:39 Sucralfate (Sucralfate 1 Gm Tablet) 1 gm PO AC&BEDTIME [facility] Last Admin: 05/30/24 06:03 Dose: 1 gm Discontinued Medications Azithromycin (Azithromycin 250 Mg Tablet) 500 mg PO DAILY [facility]; Protocol Last Admin: 05/28/24 13:21 Dose: 500 mg Cefepime HCl (Cefepime 2,000 Mg Sdv) 2,000 mg IVP Q12H [facility]; Protocol Last Admin: 05/29/24 13:11 Dose: 2,000 mg Ceftriaxone Sodium (Ceftriaxone 1,000 Mg Sdv) 1,000 mg IVP ONCE ONE; Protocol Stop: 05/27/24 20:08 Last Admin: 05/27/24 20:44 Dose: 1,000 mg Ceftriaxone Sodium (Ceftriaxone 1,000 Mg Sdv) 1,000 mg IVP Q24H [facility]; Protocol Ceftriaxone Sodium (Ceftriaxone 1,000 Mg Sdv) 1,000 mg IVP Q24H [facility]; Protocol Last Admin: 05/28/24 13:21 Dose: 1,000 mg Doxycycline Monohydrate (Doxycycline 100 Mg Tablet) 100 mg PO BID [facility]; Protocol Doxycycline Monohydrate (Doxycycline 100 Mg Tablet) 100 mg PO BID [facility]; Protocol Last Admin: 05/29/24 08:39 Dose: 100 mg Furosemide (Furosemide 10 Mg/Ml Sdv 10ml) 60 mg IVP Q12H [facility] Glucagon (Glucagon 1 Mg/Ml Kit 1 Ml) 1 mg IM ONCE ONE Stop: 05/30/24 04:33 Last Admin: 05/30/24 04:44 Dose: 1 mg Azithromycin 500 mg/ Sodium (Chloride) 250 mls @ 250 mls/hr IV ONCE ONE; Protocol Stop: 05/27/24 21:06 Last Infusion: 05/28/24 00:23 Dose: Infused Levofloxacin/Dextrose (Levaquin-D5w) 750 mg in 150 mls @ 100 mls/hr IV Q24H [facility]; Protocol Last Infusion: 05/28/24 19:00 Dose: Infused Sodium Chloride (Sodium Chloride 0.9%) 250 mls @ 250 mls/hr IV ONCE ONE Stop: 05/28/24 11:50 Last Infusion: 05/28/24 19:00 Dose: Infused Albumin Human (Albumin) 25 g in 100 mls @ 60 mls/hr IV ONCE ONE Stop: 05/28/24 14:05 Last Infusion: 05/28/24 19:00 Dose: Infused Sodium Chloride (Sodium Chloride 0.9%) 1,000 mls @ 60 mls/hr IV .[id number] [facility] Last Admin: 05/29/24 10:36 Dose: Not Given Levofloxacin/Dextrose (Levaquin-D5w) 750 mg in 150 mls @ 100 mls/hr IV Q48H [facility]; Protocol Albumin Human (Albumin) 25 g in 100 mls @ 60 mls/hr IV ONCE ONE Stop: 05/28/24 22:31 Last Infusion: 05/28/24 22:46 Dose: Infused Magnesium Sulfate (Magnesium Sulfate Premix) 2 gm in 50 mls @ 50 mls/hr IV ONCE [facility] Stop: 05/29/24 09:14 Last Infusion: 05/29/24 10:00 Dose: Infused Vancomycin HCl / Sodium (Chloride) 250 mls @ 0 mls/hr [id number] PROTOCOL [facility]; Protocol Vancomycin HCl (Vancocin) 2,500 mg in 500 mls @ 166.667 mls/hr IV ONCE ONE Stop: 05/29/24 15:59 Last Admin: 05/29/24 13:11 Dose: 166.67 mls/hr Iohexol (Iohexol 350 Mg/Ml 500 Ml Btl (Per Ml)) 0 ml IV ONCE ONE Stop: 05/27/24 19:43 Last Admin: 05/27/24 19:42 Dose: 59 ml Loperamide HCl (Loperamide 2 Mg Capsule) 2 mg PO ONCE ONE Stop: 05/29/24 18:11 Last Admin: 05/29/24 18:22 Dose: 2 mg Metoprolol Tartrate (Metoprolol Tartrate 25 Mg Tablet) 25 mg PO DAILY [facility] Potassium Chloride (Potassium Chloride Er 20 Meq Tablet) 40 meq PO ONCE ONE Stop: 05/29/24 05:33 Last Admin: 05/29/24 06:22 Dose: 40 meq Potassium Chloride (Potassium Chloride Er 20 Meq Tablet) 20 meq PO ONCE ONE Stop: 05/29/24 08:13 Last Admin: 05/29/24 08:38 Dose: 20 meq Rivaroxaban (Rivaroxaban 10 Mg Tablet) 10 mg PO DAILY [facility] Sodium Chloride (Sodium Chloride 0.9% 100 Ml Bag) 50 ml IV PRN PRN PRN Reason: Blood transfusion prime and flush Stop: 05/30/24 05:32 Last Admin: 05/29/24 11:27 Dose: 50 ml Allergies clindamycin Allergy (Verified 04/30/24 13:37) chest pain Penicillins Allergy (Verified 04/30/24 13:37) rash Home Medications [id number] ac 400 mcg-calcium carb 500 mg-vit K1 20 mcg tablet (Women's 50 Plus Multivitamin) 1 tab PO DAILY 04/09/19 [History Confirmed 05/28/24] triamcinolone acetonide 0.1 % topical cream 1 applic topical DAILY PRN Skin Irritation 06/30/23 [History Confirmed 05/28/24] ondansetron 4 mg disintegrating tablet See Rx Instructions .Route .COMPLEX #60 ea 08/28/23 [Rx Confirmed 05/28/24] promethazine 25 mg tablet 25 mg PO Q8H PRN Nausea 09/05/23 [History Confirmed 05/28/24] loperamide 2 mg capsule (Imodium A-D) 2 mg PO Q8H PRN loose stool #14 caps 09/08/23 [Rx Confirmed 05/28/24] dicyclomine 20 mg tablet 20 mg PO BID PRN abdominal cramping #60 tabs 09/18/23 [Rx Confirmed 05/28/24] levothyroxine 125 mcg tablet 125 mcg PO DAILY #90 tabs 09/18/23 [Rx Confirmed 05/28/24] hydrocortisone 2.5 % topical cream with perineal applicator See Rx Instructions .Route .COMPLEX #30 grams 10/04/23 [Rx Confirmed 05/28/24] potassium chloride 10 mEq capsule,extended release 20 meq (2 x 10 mEq) PO BID #120 caps 10/16/23 [Rx Confirmed 05/28/24] hydrocodone 7.5 mg-acetaminophen 325 mg tablet 1 tab PO BID PRN pain 30 days #60 tabs 12/05/23 [Rx Confirmed 05/28/24] pantoprazole 40 mg tablet,delayed release 40 mg PO DAILY 12/07/23 [History Confirmed 05/28/24] lidocaine 5 % topical ointment 1 applic topical DAILY #50 grams 12/18/23 [Rx Confirmed 05/28/24] duloxetine 30 mg capsule,delayed release See Rx Instructions .Route .COMPLEX #30 caps 02/12/24 [Rx Confirmed 05/28/24] diclofenac sodium 75 mg tablet,delayed release See Rx Instructions .Route .COMPLEX #30 tabs 03/11/24 [Rx Confirmed 05/28/24] metoprolol tartrate 25 mg tablet See Rx Instructions .Route .COMPLEX #90 tabs 03/13/24 [Rx Confirmed 05/28/24] ferrous gluconate 324 mg (37.5 mg iron) tablet 324 mg PO BID #60 tabs 03/18/24 [Rx Confirmed 05/28/24] pregabalin 150 mg capsule 150 mg PO DAILY #60 caps 04/08/24 [Rx Confirmed 05/28/24] rivaroxaban 10 mg tablet (Xarelto) 10 mg PO DAILY #90 tabs 05/10/24 [Rx Confirmed 05/28/24] Discharge Plan Discharge Patient Disposition: Xfer Other Condition: Stable Prescriptions: No Action Women's 50 Plus Multivitamin 400 mcg-500 mg calcium-20 mcg tablet 1 tab PO DAILY ferrous gluconate 324 mg (37.5 mg iron) tablet 324 mg PO BID Qty: 60 3RF dicyclomine 20 mg tablet 20 mg PO BID PRN (Reason: abdominal cramping) Qty: 60 2RF levothyroxine 125 mcg tablet 125 mcg PO DAILY Qty: 90 3RF ondansetron 4 mg tablet,disintegrating See Rx Instructions .ROUTE .COMPLEX Qty: 60 1RF Dose Instruction: dissolve ONE TABLET UNDER THE TONGUE EVERY 8 HOURS NEEDED FOR nausea AND vomiting Rx Instructions: dissolve ONE TABLET UNDER THE TONGUE EVERY 8 HOURS NEEDED FOR nausea AND vomiting hydrocortisone 2.5 % cream with perineal applicator See Rx Instructions .ROUTE .COMPLEX Qty: 30 3RF Dose Instruction: Apply rectally TWICE DAILY NEEDED FOR HEMORRHOIDS Rx Instructions: Apply rectally TWICE DAILY NEEDED FOR HEMORRHOIDS potassium chloride 10 mEq capsule, extended release 20 meq PO BID Qty: 120 5RF hydrocodone-acetaminophen 7.5-325 mg tablet 1 tab PO BID PRN (Reason: pain) 30 Days Qty: 60 0RF lidocaine 5 % ointment 1 applic topical DAILY Qty: 50 2RF Rx Instructions: prn duloxetine 30 mg capsule,delayed release(DR/EC) See Rx Instructions .ROUTE .COMPLEX Qty: 30 4RF Dose Instruction: TAKE ONE CAPSULE BY MOUTH DAILY Rx Instructions: TAKE ONE CAPSULE BY MOUTH DAILY diclofenac sodium 75 mg tablet,delayed release (DR/EC) See Rx Instructions .ROUTE .COMPLEX Qty: 30 2RF Dose Instruction: TAKE ONE TABLET BY MOUTH DAILY NEEDED FOR PAIN Rx Instructions: TAKE ONE TABLET BY MOUTH DAILY NEEDED FOR PAIN metoprolol tartrate 25 mg tablet See Rx Instructions .ROUTE .COMPLEX Qty: 90 1RF Dose Instruction: TAKE ONE TABLET BY MOUTH DAILY Rx Instructions: TAKE ONE TABLET BY MOUTH DAILY pregabalin 150 mg capsule 150 mg PO DAILY Qty: 60 5RF Xarelto 10 mg tablet 10 mg PO DAILY Qty: 90 1RF promethazine 25 mg tablet 25 mg PO Q8H PRN (Reason: Nausea) loperamide [Imodium A-D] 2 mg capsule 2 mg PO Q8H PRN (Reason: loose stool) Qty: 14 0RF Rx Instructions: administer after each loose stool until symptoms controlled; do not exceed 8 mg per 24 hrs triamcinolone acetonide 0.1 % cream 1 applic topical DAILY PRN (Reason: Skin Irritation) pantoprazole 40 mg tablet,delayed release (DR/EC) 40 mg PO DAILY Referrals: Torin Sandhu MD [Primary Care Provider] - Transfer Attestations Time Spent in Transfer Care: greater than 30 min Quality Metrics Clinical Quality Measures [ No reported AMI, CVA or VTE this stay] Coding Level of Care Code Acute Code for Chg Fwd Diagnoses GI bleed K92.2
[2024-05-30] MEDS: dextrose 5% 1,000 ML 30 ML IV (09:54)
[2024-05-30 10:03] LABS: Hematocrit 27.4 % (36-47)
[2024-05-30 10:45] LABS: Apprearance, Body Fluid CLOUDY; Color, Body Fluid YELLOW; Cyto Order Verification Order Verified; Fluid Laterality ASCITES
[2024-05-30 10:48] LABS: Body Fluid Polynuclear #Cells 0.083; Body Fluid WBC 218 /uL; Monocytes # Body Fluid 0.135; RBC, Body Fluid 0 10^3/uL
[2024-05-30 11:01] LABS: Body Fluid Specific Gravity 1.015; pH Body Fluid 6.5
[2024-05-30 11:14] LABS: PATH Referral YES
[2024-05-30 11:22] LABS: Albumin Body Fluid 1.1 g/dL; Cholesterol Body Fluid 20 mg/dL (0-200); Fluid Alkaline Phos. 19 IU/L; LDH Body Fluid 64 U/L; Total Protein Body Fluid 1.4 g/dL; Triglycerides Body Fluid 34 mg/dL (0-150); Uric Acid Body Fluid 8 mg/dL
[2024-05-30] MEDS: vancomycin 1,250 MG/250 ML PIGGYBACK 166.67 MG IV (13:30)
[2024-05-30] MEDS: cefepime 1,000 mg SDV 1000 MG IVP ×2 (13:38)
--- NOTE | 2024-05-30 13:55 | PC.NURSE ---
Patient's blood sugar trended down to 70. Dr. Brown was contacted and she ordered a bolus of D10 at 250 ml over 15 minutes to be given.
[2024-05-30] MEDS: dextrose 10% 250 ML 1000 ML IV (14:02)
--- NOTE | 2024-05-30 14:26 | US_ITS ---
WS: [id number] ULTRASOUND-GUIDED THERAPEUTIC AND DIAGNOSTIC PARACENTESIS Procedure, risks, and complications have been explained to the patient. Consent is obtained. Utilizing aseptic technique and 1% buffered lidocaine, a small dermatome was made through which a 5 Turkish Yueh catheter was inserted. Approximately 1000 ml of clear yellow peritoneal fluid was obtained without difficulty. No complications encountered. Specimen collected for analysis as ordered. US/US paracentesis abd w [id number] IMPRESSION: Uncomplicated paracentesis yielding 1000 ml of peritoneal fluid.
[2024-05-30 14:55] LABS: Basophils % 0.4 %; Eosinophils # 0.1 10^3/uL (0.0-0.8); Eosinophils % 2.6 %; Lymphocytes % 21.2 %; Mean Corpuscular HGB Conc 31.1 g/dL (30-55); Mean Corpuscular Hemoglobin 29.2 pg (27-33); Mean Corpuscular Volume 93.8 fl (85-98); Mean Platelet Volume 9.8 fL (7.4-10.4); Monocytes # 0.3 10^3/uL (0.2-0.9); Monocytes % 7.4 %; Neutrophils # 2.95 10^3/uL (1.8-7.7); Neutrophils % 64.5 %; Nucleated Red Blood Cells % 0 %; Platelet Count 95 10^3/cmm (157-399); Red Blood Count 2.88 10^6/uL (3.85-5.65); Red Cell Distribution Width 19.9 % (12.1-15.1); White Blood Count 4.58 10^3/uL (3.29-11.43)
[2024-05-30] MEDS: citric acid-sodium citrate 30 mL UDC 60 ML PO (15:05)
[2024-05-30] MEDS: FUROsemide 10 mg/mL SDV 4mL 40 MG IVP (15:05)
[2024-05-30 15:12] LABS: Glucose Point of Care 70 mg/dL (70-110)
[2024-05-30 16:01] LABS: Glucose Point of Care 122 mg/dL (70-110)
--- NOTE | 2024-05-30 16:14 | ECG_ITS ---
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 Measurements Intervals [place] Rate: 104 P: 66 MI: 125 QRS: 36 QRSD: 85 T: -1 QT: 321 QTc: 423 Interpretive Statements SINUS TACHYCARDIA LOW QRS VOLTAGE IN PRECORDIAL LEADS [QRS DEFLECTION < 1.0 mV IN CHEST LEADS] POSSIBLE ANTERIOR MYOCARDIAL INFARCTION , PROBABLY OLD [30 ms Q WAVE IN V3/V4, OR R < 0.2 mV IN V4] ABNORMAL RHYTHM ECG Compared to ECG 05/28/2024 02:18:00 No significant changes Electronically Signed On 05-30-2024 22:23:30 CDT by Pearl Carty M.D. [email or web address] [id number]
--- NOTE | 2024-05-30 18:29 | PC.NURSE ---
Patient's stated concern about the patient not having anything to eat all day. Patient's seemed irritated about the process of transferring the patient to [facility] taking too long. Doctor Stephanie was contacted and she ordered to start the patient on a clear liquid diet. She also talked to the patient's family member about her downgrading the patient from a [facility] patient on [facility] side to a [facility] surge with Telemetry to get a bed faster.
[2024-05-30] MEDS: HYDROcodone-acetaminophen 7.5-325 mg Tablet 1 TAB PO (20:03)
[2024-05-30] MEDS: ondansetron 2 mg/ML SDV 2 mL 4 MG IVP (21:15)
[2024-05-30 21:38] LABS: Glucose Point of Care 105 mg/dL (70-110)
--- NOTE | 2024-05-30 21:45 | PC.NURSE ---
Transfer [facility] called with a bed for transfer 4107 bed 1. Report called to MINO Acosta. Angel Eric contacted for transportation. at bedside and updated. Patient left unit at 2120 with EMS crew. All vitals stable and belongings sent with at time of transfer.
--- NOTE | 2024-05-30 21:49 | P.PN_ITS ---
Subjective 2 Subjective: No new complaints Medications: Reviewed: Yes Vitals/I&O/Wt Last Vital Signs Temp 98.4 F 05/30/24 19:30 Pulse 111 H 05/30/24 21:00 Resp 15 05/30/24 21:00 BP 125/78 05/30/24 21:00 Pulse Ox 95 05/30/24 21:00 O2 Del Method Room Air 05/30/24 18:00 O2 Flow Rate 3 05/27/24 21:56 05/30/24 05/30/24 05/30/24 06:59 14:59 22:59 Intake Total 218 / 1184.25 450 / 450 1358 / 1808 Output Total 625 / 1425 200 / 200 2000 / 2200 Balance -407 / -240.75 250 / 250 -642 / -392 Weight last 48 hrs Weight 88 kg Weight 87.5 kg Physical Exam 2 Narrative: awake , alert , No distress , looks pale PEERLA S1S2 RRR per report Lungs clear per report abdomen - soft , non tender , distended per report + LE edema Urinary Catheter Management: Graham: Cath Placed During This Visit: yes Reason for Continuing Indwelling Catheter: Accurate Measurement of Urinary Output in Critically Ill Patients Urinary Catheter Date of Insertion: 05/28/24 Urinary Catheter Time of Insertion: 07:25 Data 05/30/24 14:46 05/30/24 02:52 Micro: Microbiology 05/28/24 15:35 E. coli Shiga-like Toxin (PCR) - Final Stool - Stool Aspirate Campylobacter (PCR) - Final 05/29/24 15:27 Blood Culture - Preliminary Blood NEGATIVE TO DATE 05/29/24 15:24 Blood Culture - Preliminary Blood NEGATIVE TO DATE 05/30/24 10:15 Gram Stain - Final Peritoneal Fluid 05/29/24 09:54 Urine Culture - Preliminary Urine,Clean Catch A&P Assessment and plan (1) Acute on chronic renal failure: 1. Acute on chronic kidney disease stage III: Baseline creatinine is in the 1.2 range previously now has an REGINALD with a creatinine. Etiology likely renal hypoperfusion in the setting of low blood pressures and severe anemia, and also had contrast exposure. Home med list also includes diclofenac tablets-unclear if patient was taking. -Creatinine has slightly improved to 1.3 today, I added IV albumin and midodrine. Start diuretics today Will check echocardiogram, check urine analysis and UPCR -No acute indication for dialysis currently 2. Anasarca: ? Etiology-? liver cirrhosis noted hypoalbuminemia, check echocardiogram , check UA and UPCR 3. Severe anemia: Patient on chronic anticoagulation, workup in process, plan for 2 units of PRBCs today 4. Metabolic acidosis: Mild improving monitor 5. Hypokalemia and hypomagnesemia: Replete 6. History of DVT on chronic anticoagulation 7. History of A-fib Patient evaluated using audiovisual cart. Time spent 40 minutes PDMP PDMP Reviewed: Not Reviewed Attestations 2 Medical Necessity Statement*: Per medicine team Coding Level of Care Code Acute Code for Chg Fwd Diagnoses Acute on chronic renal failure N17.9; N18.9
[2024-06-04 13:34] LABS: Amylase, Peritoneal Fluid <10 U/L
== END 2024-05-30 21:20 | disposition short-term general hospital (02) | DRG 291 ==
LOC: ER 20:43 → ICU 20:58
PROVIDERS: Hospitalist; Admitting Provider Internal Medicine; Emergency Provider Emergency Medicine; PCP Family Medicine; Visit Provider Internal Medicine
DX: I13.0 Hypertensive heart and chronic kidney disease with heart failure and stage 1 through stage 4 chronic kidney disease, or unspecified chronic kidney disease (principal); I50.33 Acute on chronic diastolic (congestive) heart failure; N17.9 Acute kidney failure, unspecified; K92.2 Gastrointestinal hemorrhage, unspecified; E87.20 Acidosis, unspecified; R18.8 Other ascites; N18.30 Chronic kidney disease, stage 3 unspecified; E03.9 Hypothyroidism, unspecified; K22.2 Esophageal obstruction; F32.A Depression, unspecified; R19.7 Diarrhea, unspecified; R42 Dizziness and giddiness; E87.6 Hypokalemia; E83.42 Hypomagnesemia; R31.9 Hematuria, unspecified; Z86.718 Personal history of other venous thrombosis and embolism; Z79.01 Long term (current) use of anticoagulants; Z85.3 Personal history of malignant neoplasm of breast; Z85.72 Personal history of non-Hodgkin lymphomas
CPT/HCPCS: 36415; 36416; 36430; 36573; 36592; 49083; 51702; 70450; 70551; 71045; 71275; 74176; 76700; 76770; 76856; 80048; 80053; 80503; 81001; 82042; 82150; 82274; 82465; 82607; 82945; 82962; 83010; 83540; 83550; 83605; 83615; 83690; 83735; 83880; 83986; 84075; 84145; 84157; 84315; 84443; 84478; 84484; 84560; 85014; 85018; 85025; 85045; 85378; 85610; 86850; 86880; 86900; 86920; 87015; 87040; 87045; 87070; 87075; 87086; 87116; 87150; 87177; 87205; 87206; 87209; 87427; 87449; 87493; 87801; 88112; 88305; 89050; 92523; 92610; 93005; 93306; 93971; 94664; 96365; 96372; 96374; 96375; 96376; 99285; C1751; J0456; J0692; J0696; J1610; J1940; J1956; J2405; J2470; J3370; J3475; J7030; J7050; J7070; J7799; J9999; P9016; P9046; Q0144

== ENCOUNTER 2024-06-19 15:56 | Emergency (ER) | payer MEDICARE, SELFPAY ==
[2024-06-19 15:57] VITALS: BP 122/68; PULSE 102; RESP 18; TEMP 36.6; O2SAT 100
--- NOTE | 2024-06-19 16:05 | ECG_ITS ---
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 Measurements Intervals [place] Rate: 102 P: 65 NH: 128 QRS: -5 QRSD: 86 T: 75 QT: 361 QTc: 470 Interpretive Statements SINUS TACHYCARDIA WITH OCCASIONAL ECTOPIC PREMATURE COMPLEXES LOW QRS VOLTAGE IN PRECORDIAL LEADS [QRS DEFLECTION < 1.0 mV IN CHEST LEADS] POSSIBLE ANTERIOR MYOCARDIAL INFARCTION , PROBABLY OLD [30 ms Q WAVE IN V3/V4, OR R < 0.2 mV IN V4] POSSIBLE INFERIOR MYOCARDIAL INFARCTION , PROBABLY OLD [30 ms Q WAVE IN II/aVF] ABNORMAL RHYTHM ECG Compared to ECG 05/30/2024 16:14:19 No significant changes Electronically Signed On 06-19-2024 21:15:59 CDT by Pearl Carty M.D. [id number] [id number]
--- NOTE | 2024-06-19 16:05 | XRR_ITS ---
PROCEDURE INFORMATION: Exam: XR Chest Exam date and time: 06/19/2024 4:50 PM Age: 78 years old Clinical indication: Shortness of breath TECHNIQUE: Imaging protocol: Radiologic exam of the chest. Views: 1 view. COMPARISON: CR XR chest 1V portable [id number] 05/28/2024 1:10 PM FINDINGS: Lungs: Unremarkable. No consolidation. Pleural spaces: Unremarkable. No pleural effusion. No pneumothorax. Heart/Mediastinum: Unremarkable. No cardiomegaly. Bones/joints: Unremarkable. XR/XR chest 1V portable [id number] IMPRESSION: No acute findings.
[2024-06-19 16:14] LABS: Basophils % 0.3 %; Eosinophils # 0.2 10^3/uL (0.0-0.8); Eosinophils % 3.5 %; Hematocrit 36.3 % (36-47); Lymphocytes # 2.1 10^3/uL (0.8-4.8); Lymphocytes % 34.6 %; Mean Corpuscular HGB Conc 30.6 g/dL (30-55); Mean Corpuscular Hemoglobin 30.1 pg (27-33); Mean Corpuscular Volume 98.4 fl (85-98); Mean Platelet Volume 10.3 fL (7.4-10.4); Monocytes # 0.4 10^3/uL (0.2-0.9); Monocytes % 7.3 %; Neutrophils # 3.23 10^3/uL (1.8-7.7); Nucleated Red Blood Cells % 0 %; Platelet Count 221 10^3/cmm (157-399); Red Blood Count 3.69 10^6/uL (3.85-5.65); Red Cell Distribution Width 20.4 % (12.1-15.1); White Blood Count 5.99 10^3/uL (3.29-11.43)
--- NOTE | 2024-06-19 16:36 | ED_ITS ---
HPI - Weakness 2 General: Chief complaint: Weakness Stated complaint: SOB, HTN Time Seen by Provider: 06/19/24 16:02 History of Present Illness: 78-year-old female with a history of chr onic anemia for which the cause has been unable to be determined, hypertension, colitis, B-cell lymphoma, ductal carcinoma of the breast, depression, history of DVT, peripheral neuropathy, diverticulosis and chronic cystitis who presents the emergency room with concern for low blood pressure and low oxygen saturations. She said she had some generalized weakness and home health had checked on her and her O2 saturations were low and her blood pressure was a little low. EMS reports that peripherally her sats were low but centrally she had good oxygen saturations at 100%. She was a bit clammy and cool in her extremities. Blood pressure was normal on their arrival. O2 sats and blood pressure been normal on arrival here as well. She has no other complaints. Chronic lower extremity edema. She says she recently was admitted to [facility] from here with low blood counts and had to receive a single transfusion then. She has received multiple transfusions in the past. She was actually transferring from here to [facility] because no one can figure out what was wrong with me . Apparently at [facility] they could not figure out why she was losing blood either. No abdominal pain. No nausea or vomiting. No altered mental status. No focal motor deficits. No chest pain. She says her breathing is just short when she exerts herself and this is old. Review of Systems 2 Narrative: Constitutional symptoms: Negative except as documented in HPI. Skin symptoms: Negative except as documented in HPI. Eye symptoms: Negative except as documented in HPI. ENMT symptoms: Negative except as documented in HPI. Respiratory symptoms: Negative except as documented in HPI. Cardiovascular symptoms: Negative except as documented in HPI. Gastrointestinal symptoms: Negative except as documented in HPI. Genitourinary symptoms: Negative except as documented in HPI. Musculoskeletal symptoms: Negative except as documented in HPI. Neurologic symptoms: Negative except as documented in HPI. Psychiatric symptoms: Negative except as documented in HPI. Endocrine symptoms: Negative except as documented in HPI. 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 This occurred last night. On exam today no actual bleeding seen anywhere. Stitch from her vault suspension was again noted today on exam. No granulation tissue was noted on exam. However, due to this intermittent reporting of bleeding, I went ahead and removed the stitch. On removal, the stitch appeared to not be attached to anything other than the vaginal wall. Patient still had a urethral caruncle noted with a small spot adjacent to it which is suspicious for possible bleeding from that area. With her being on the Xarelto, she may have bled from either the caruncle or from the stitch in the vagina. Questions were answered. Follow-up as needed. Surgical History History of endoscopy 08/2022 - Dr. Blanton at [facility]. S/P lumpectomy, right breast (01/27/20) H/O excision of mass H/O colonoscopy 2013 H/O esophagogastroduodenoscopy 2019 History of laparotomy (~1996) left ovarian cystectomy Hx of hysterectomy (~04/08/14) with vaginal repair------- TVH, LSO, Uterosacral ligament suspension, Anterior vaginal repair, Perineorrhaphy, Single incision suburethral sling, Cystoscopy, Lysis of bowel adhesions. 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 Performed by Dr. Remi Musa at [facility] in [place], [place]. Surgical findings: Third degree cystocele, second to third degree uterine prolapse, adhesions of the sigmoid to the left fundal portion of the uterus and to the left ovary, left ovarian cyst present. History of surgery on right wrist (~12/2010) Hx of cholecystectomy (~02/2005) Laparoscopic. Performed by Dr. Blanton at [facility] in [place], [place]. History of bunionectomy (~2001) left H/O ovarian cystectomy (~1996) Left-- Laparotomy Hx of breast biopsy (~1993) 1993-- 1 cyst removed from left breast and 2 cysts removed from right breast. All pathologies were benign. History of tonsillectomy and adenoidectomy (~195) Family History Grandfather Diabetes Maternal Mother Breast cancer dx at age 45 Denies family history of Colon cancer Ovarian cancer Heart disease Hypercholesteremia Anesthesia complication Bleeding disorder Hypertension Uterine cancer Thyroid disease Stroke Social History Smoking and tobacco/nicotine status: never used tobacco/nicotine Physical Exam 2 Narrative: EXAM NARRATIVE: General: Alert, no acute distress. Skin: Warm, dry. Head: Normocephalic, atraumatic. Neck: Supple, trachea midline. Eye: Extraocular movements are intact. Ears, nose, mouth and throat: mucosa moist. Cardiovascular: Regular, Normal peripheral perfusion. 2-3+ pitting edema of the tibia. Respiratory: Lungs are clear to auscultation, respirations are non-labored, breath sounds are equal, Symmetrical chest wall expansion. Gastrointestinal: Soft, Nontender, Non distended Musculoskeletal: Normal ROM, no deformity. Neurological: Alert and oriented, No focal neurological deficit observed. Psychiatric: Cooperative, appropriate mood & affect. Course 2 Vital Signs: Vital signs: Vital Signs Temperature 97.8 F 06/19/24 15:57 Pulse Rate 102 H 06/19/24 15:57 Respiratory Rate 18 06/19/24 15:57 Blood Pressure 122/68 06/19/24 15:57 Pulse Oximetry 100 06/19/24 15:57 Oxygen Delivery Me thod Room Air 06/19/24 15:57 MDM - Weakness Medical Decision Making Medical decision making: Differential diagnosis for patient presenting with generalized weakness including but not limited to and based on the above HPI, review of systems and physical exam: Sepsis. Dehydration. Renal failure. Electrolyte abnormalities. Anemia. Congestive heart failure. Hypotension. Coronary syndrome. Hepatitis. Cirrhosis. Infections such as pneumonia, urinary tract infection, Tick bourne illness, Cellulitis, Viral infections including influenza and Covid-19. Workup: labwork and lab/exam driven imaging ordered to evaluate, rule in and rule out above pathologies. EKG: Time 1558. Rate 102. Sinus tachycardia, nonspecific ST changes, no ectopy, normal ND & QRS intervals, This was reviewed and interpreted by myself the ER physician at 1602. Chest x-ray: No acute process. No infiltrate. No pneumothorax. This was reviewed and interpreted by myself the emergency room physician. I also reviewed the radiology report. Lab Review: Laboratory results were reviewed and interpreted by myself the emergency room physician. No leukocytosis. Hemoglobin is actually above her baseline of 11 today. proBNP is just over thousand which was what it was in last presentation. Reviewed and creatinine are actually a little lower than her usual. She has quite a bit of edema. Given some Lasix that she may be a little bit wet today. No signs of congestive heart failure on her chest x-ray. No hypoxemia here. I reviewed the patient's medical record. Reexamination: Patient remained stable. No increased work of breathing. No altered mental status. No focal motor deficits. No oxygen requirements. No increased work of breathing. I discussed findings with the patient and she is happy to go home. Assessment and plan: Shortness of breath Edema ? IV Lasix in the emergency room. - Discharged home - Discussed plan with patient. Answered any questions. - Evaluation and treatment of this problem were appropriate in the emergency setting. Lab Data 06/19/24 16:00 06/19/24 16:36 Radiology Impressions Chest X-Ray 06/19/24 16:05 IMPRESSION: No acute findings. Laboratory Results WBC 5.99 10^3/uL (3.29-11.43) 06/19/24 16:00 RBC 3.69 10^6/uL (3.85-5.65) L 06/19/24 16:00 Hgb 11.10 g/dL (11.27-16.99) L 06/19/24 16:00 Hct 36.3 % (36-47) 06/19/24 16:00 MCV 98.4 fl (85-98) H 06/19/24 16:00 MCH 30.1 pg (27-33) 06/19/24 16:00 MCHC 30.6 g/dL (30-55) 06/19/24 16:00 RDW 20.4 % (12.1-15.1) H 06/19/24 16:00 Plt Count 221 10^3/cmm (157-399) 06/19/24 16:00 MPV 10.3 fL (7.4-10.4) 06/19/24 16:00 Neut % (Auto) 54.0 % 06/19/24 16:00 Lymph % (Auto) 34.6 % 06/19/24 16:00 Hopkins % (Auto) 7.3 % 06/19/24 16:00 Eos % (Auto) 3.5 % 06/19/24 16:00 Baso % (Auto) 0.3 % 06/19/24 16:00 Neut # (Auto) 3.23 10^3/uL (1.8-7.7) 06/19/24 16:00 Lymph # (Auto) 2.1 10^3/uL (0.8-4.8) 06/19/24 16:00 Hopkins # (Auto) 0.4 10^3/uL (0.2-0.9) 06/19/24 16:00 Eos # (Auto) 0.2 10^3/uL (0.0-0.8) 06/19/24 16:00 Baso # (Auto) 0.0 10^3/uL (0.0-0.1) 06/19/24 16:00 Nucleated RBC % (auto) 0 % 06/19/24 16:00 Nucleated RBCs # 0.0 /100WBC 06/19/24 16:00 PT 14.90 SECONDS (12.1-14.9) 06/19/24 16:00 INR 1.10 (0.8-1.2) 06/19/24 16:00 APTT 31.4 SECONDS (23.9-36.7) 06/19/24 16:00 Sodium 144 mmol/L (136-145) 06/19/24 16:36 Potassium 4.0 mmol/L (3.5-5.1) 06/19/24 16:36 Chloride 104 mmol/L (98-107) 06/19/24 16:36 Carbon Dioxide 30 mmol/L (22-29) H 06/19/24 16:36 Anion Gap 14.0 (5-19) 06/19/24 16:36 BUN 14 mg/dL (8-23) 06/19/24 16:36 Creatinine 1.1 mg/dL (0.5-0.9) H 06/19/24 16:36 GFR Calculation Not Reportable 06/19/24 16:36 Glucose 101 mg/dL (65-115) 06/19/24 16:36 Calculated Osmolality 299 mOsm/kg (285-295) H 06/19/24 16:36 Lactic Acid 3.9 mmol/L (0.5-2.2) H 06/19/24 16:00 Calcium 7.7 mg/dL (8.5-10.5) L 06/19/24 16:36 Total Bilirubin 0.7 mg/dL (0.15-1.2) 06/19/24 16:36 AST 22 U/L (0-32) 06/19/24 16:36 ALT 13 U/L (0-33) 06/19/24 16:36 Alkaline Phosphatase 96 U/L (35-105) 06/19/24 16:36 NT-Pro-B Natriuret Pep 1117 pg/mL (0-450) H 06/19/24 16:36 Total Protein 4.9 g/dL (6.6-8.7) L 06/19/24 16:36 Albumin 3.0 g/dL (3.5-5.2) L 06/19/24 16:36 Globulin 1.9 g/dL (1.3-4.6) 06/19/24 16:36 Influenza A (PCR) Negative (Negative) 06/19/24 16:10 Influenza Type B (PCR) Negative (Negative) 06/19/24 16:10 RSV (PCR) Negative (Negative) 06/19/24 16:10 SARS-CoV-2 (PCR) Negative (Negative) 06/19/24 16:10 All radiology interpretation(s) finalized by discharge Discharge Plan Discharge Patient Disposition: Home Clinical Impression: Shortness of breath, Edema Condition: Stable Prescriptions: No Action Women's 50 Plus Multivitamin 400 mcg-500 mg calcium-20 mcg tablet 1 tab PO DAILY ferrous gluconate 324 mg (37.5 mg iron) tablet 324 mg PO BID Qty: 60 3RF levothyroxine 125 mcg tablet 125 mcg PO DAILY Qty: 90 3RF furosemide 40 mg tablet 40 mg PO DAILY Qty: 90 3RF spironolactone 25 mg tablet 25 mg PO DAILY Qty: 90 3RF hydrocodone-acetaminophen 7.5-325 mg tablet 1 tab PO BID PRN (Reason: pain) 30 Days Qty: 60 0RF dicyclomine 20 mg tablet 20 mg PO BID PRN (Reason: abdominal cramping) Qty: 60 2RF potassium chloride 10 mEq capsule, extended release 20 meq PO BID Qty: 120 5RF pregabalin 150 mg capsule 150 mg PO DAILY Qty: 60 5RF promethazine 25 mg tablet 25 mg PO Q8H PRN (Reason: Nausea) loperamide [Imodium A-D] 2 mg capsule 2 mg PO Q8H PRN (Reason: loose stool) Qty: 14 0RF Rx Instructions: administer after each loose stool until symptoms controlled; do not exceed 8 mg per 24 hrs triamcinolone acetonide 0.1 % cream 1 applic topical DAILY PRN (Reason: Skin Irritation) pantoprazole 40 mg tablet,delayed release (DR/EC) 40 mg PO DAILY hydrocortisone 2.5 % cream with perineal applicator 1 applic ND BID PRN (Reason: Hemorrhoids) Rx Instructions: Apply rectally TWICE DAILY NEEDED FOR HEMORRHOIDS ondansetron 4 mg tablet,disintegrating 4 mg translingual Q8H PRN (Reason: Nausea And Vomiting) metoprolol tartrate 25 mg tablet 25 mg PO DAILY Xarelto 10 mg tablet 10 mg PO QPM lidocaine 5 % ointment 1 applic topical DAILY PRN (Reason: Pain) Rx Instructions: prn Discharge Orders: Discharge ED (Routine); Ordered 06/19/24 Ordered By: Rafaela Parker Referrals: Torin Sandhu MD [Primary Care Provider] - Discharge Diet: Usual diet Discharge Activity: Increase activity as tolerated Patient Instructions: Opioid Safety, Pain Management Activity Restrictions/Additional Instructions: Thank you for choosing [facility] for your healthcare needs today. Please realize this is an emergency room and that we are providing you with a medical screening exam and this may not be complete and all inclusive of all the testing and or work up that you may need to determine your ailment or severity of your illness. You have been screened and evaluated and felt safe for discharge. Health conditions do change or evolve sometimes and as such it is important that you follow up with your Primary Doctor to be re checked, 3-5 days is a general good time frame for follow up. You are always welcome to return to the ED for re assessment if your symptoms are worsening or you have new concerns Print Language: Tajik Coding Level of Care Code ED Engineer Second Assistant for Chg Fwd Related Data Home Medications ?Medication ?Instructions ?Recorded ?Confirmed [id number] ac 400 1 tab PO DAILY 04/09/1906/04 mcg-calcium carb 500 mg-vit K1 20 mcg tablet (Women's 50 Plus Multivitamin) triamcinolone acetonide 0.1 % 1 applic topical DAILY P RN Skin 06/30/23 06/19/24 topical cream Irritation promethazine 25 mg tablet 25 mg PO Q8H PRN Nausea 07/0 04/2906/19/24 pantoprazole 40 mg tablet,delayed 40 mg PO DAILY 12/0606/19/24 release hydrocortisone 2.5 % topical cream 1 applic ND BID PRN Hemorrhoids 06/19/24 06/19/24 with perineal applicator lidocaine 5 % topical ointment 1 applic topical DAILY PRN Pain 06/19/24 06/19/24 metoprolol tartrate 25 mg tablet 25 mg PO DAILY 06/19/24 ondansetron 4 mg disintegrating 4 mg translingual Q8H PRN Nausea 06/19/24 06/19/24 tablet And Vomiting rivaroxaban 10 mg tablet (Xarelto) 10 mg PO QPM 06/19/24 Previous Rx's ?Medication ?Instructions ?Recorded loperamide 2 mg capsule (Imodium 2 mg PO Q8H PRN loose stool #14 09/08/23 A-D) caps dicyclomine 20 mg tablet 20 mg PO BID PRN abdominal 0 09/18/23 Held on 06/12/24. cramping #60 tabs Instructions: Doctor's Order potassium chloride 10 mEq 20 meq (2 x 10 mEq) PO BID # 120 10/16/23 capsule,extended release caps ferrous gluconate 324 mg (37.5 mg 324 mg PO BID #60 ta bs 03/18/24 iron) tablet pregabalin 150 mg capsule 150 mg PO DAILY #60 caps 05/28 furosemide 40 mg tablet 40 mg PO DAILY swelling #90 tabs 04/09/25 hydrocodone 7.5 mg-acetaminophen 1 tab PO BID PRN pain 30 days #60 06/12/24 325 mg tablet tabs levothyroxine 125 mcg tablet 125 mcg PO DAILY #90 tabs 06/12/24 spironolactone 25 mg tablet 25 mg PO DAILY #90 tabs Allergies Allergy/AdvReac Type Severity Reaction Status Date / Time clindamycin Allergy chest pain Verified 06/12/24 09:50 Penicillins Allergy rash Verified 06/12/24 09:50
[2024-06-19 16:37] LABS: Partial Thromboplastin Time 31.4 SECONDS (23.9-36.7)
[2024-06-19 16:42] LABS: Lactic Sepsis W/Reflex 3.9 mmol/L (0.5-2.2)
[2024-06-19 17:15] LABS: Influenza A NEGATIVE (Negative); Influenza B NEGATIVE (Negative); Respiratory Syncytial Virus Ce NEGATIVE (Negative); SARS-CoV-2 PCR NEGATIVE (Negative)
[2024-06-19 17:35] LABS: Alanine Aminotransferase 13 U/L (0-33); Alkaline Phosphatase 96 U/L (35-105); Aspartate Amino Transferase 22 U/L (0-32); Blood Urea Nitrogen 14 mg/dL (8-23); Calcium 7.7 mg/dL (8.5-10.5); Carbon Dioxide 30 mmol/L (22-29); Chloride 104 mmol/L (98-107); Creatinine Clr Calc Pharmacy 43.2808; Globulin 1.9 g/dL (1.3-4.6); Glucose 101 mg/dL (65-115); NT Pro B Type Natriuretic Pept 1117 pg/mL (0-450); Osmolality Calculated 299 mOsm/kg (285-295); Sodium 144 mmol/L (136-145); Total Bilirubin 0.7 mg/dL (0.15-1.2); Total Protein 4.9 g/dL (6.6-8.7)
[2024-06-19 18:00] LABS: Reflex Lactate Order REFLEX LACTIC ORDERD
[2024-06-19] MEDS: FUROsemide 10 mg/mL SDV 4mL 40 MG IVP (18:00)
[2024-06-19 18:12] VITALS: BP 137/85; PULSE 90; O2SAT 100
== END 2024-06-19 18:13 | disposition home or self-care (01) ==
PROVIDERS: Emergency Provider Emergency Medicine; PCP Family Medicine
DX: R06.02 Shortness of breath (principal); R60.0 Localized edema; Z11.52 Encounter for screening for COVID-19; Z85.3 Personal history of malignant neoplasm of breast
CPT/HCPCS: 36415; 71045; 80053; 83605; 83880; 85025; 85610; 85730; 86850; 86900; 87637; 93005; 96374; 99285; J1940

== ENCOUNTER → 2024-07-15 14:21 | Outpatient (BNVA) | payer MEDICARE, SELFPAY | PROVIDERS: PCP Family Medicine; Visit Provider Family Medicine | DX: D50.9 Iron deficiency anemia, unspecified (principal); C83.31 Diffuse large B-cell lymphoma, lymph nodes of head, face, and neck; E03.9 Hypothyroidism, unspecified | CPT/HCPCS: 80053; 82728; 83550; 84443; 85025 ==

== ENCOUNTER 2024-07-17 10:45 | Oncology outpatient (recurring) (ONCR) | payer MEDICARE, SELFPAY | END 2024-08-03 23:59 | disposition home or self-care (01) | PROVIDERS: PCP Family Medicine; Visit Provider Nurse Practitioner Family | DX: Z08 Encounter for follow-up examination after completed treatment for malignant neoplasm (principal); Z85.3 Personal history of malignant neoplasm of breast; D50.9 Iron deficiency anemia, unspecified; N28.89 Other specified disorders of kidney and ureter; R94.6 Abnormal results of thyroid function studies; Z92.3 Personal history of irradiation; Z85.72 Personal history of non-Hodgkin lymphomas | CPT/HCPCS: 99214 ==

== ENCOUNTER 2024-08-27 12:32 | Oncology outpatient (recurring) (ONCR) | payer MEDICARE, SELFPAY ==
[2024-08-27 12:48] LABS: Basophils % 0.4 %; Eosinophils # 0.7 10^3/uL (0.0-0.8); Eosinophils % 8.8 %; Hematocrit 31.7 % (36-47); Lymphocytes # 1.7 10^3/uL (0.8-4.8); Lymphocytes % 20.5 %; Mean Corpuscular HGB Conc 31.5 g/dL (30-55); Mean Corpuscular Hemoglobin 31.2 pg (27-33); Mean Corpuscular Volume 98.8 fl (85-98); Mean Platelet Volume 9.2 fL (7.4-10.4); Monocytes # 0.6 10^3/uL (0.2-0.9); Monocytes % 6.7 %; Neutrophils # 5.23 10^3/uL (1.8-7.7); Neutrophils % 63.2 %; Nucleated Red Blood Cells % 0 %; Platelet Count 276 10^3/cmm (157-399); Red Blood Count 3.21 10^6/uL (3.85-5.65); Red Cell Distribution Width 15.4 % (12.1-15.1); White Blood Count 8.26 10^3/uL (3.29-11.43)
[2024-08-27 12:49] LABS: Reticulocyte % 2.7 % (0.5-2.0)
[2024-08-27 13:11] LABS: Alanine Aminotransferase 8 U/L (0-33); Albumin Level 2.8 g/dL (3.5-5.2); Alkaline Phosphatase 133 U/L (35-105); Anion Gap 15.1 (5-19); Aspartate Amino Transferase 15 U/L (0-32); Blood Urea Nitrogen 41 mg/dL (8-23); Carbon Dioxide 22 mmol/L (22-29); Chloride 107 mmol/L (98-107); Ferritin 159 ng/mL (15-150); Globulin 2.6 g/dL (1.3-4.6); Glucose 106 mg/dL (65-115); Iron 55 ug/dL (37-145); Lactate Dehydrogenase 177 U/L (135-214); Osmolality Calculated 301 mOsm/kg (285-295); Percent Saturation 35.7 % (20-50); Potassium 4.1 mmol/L (3.5-5.1); Sodium 140 mmol/L (136-145); Total Bilirubin 0.3 mg/dL (0.15-1.2); Total Iron Binding Capacity 154 mcg/dl; Total Protein 5.4 g/dL (6.6-8.7); Unsaturated Iron Binding 99 ug/dL (112-347)
[2024-08-27 13:26] LABS: Vitamin B12 1414 pg/mL (232-1245)
[2024-08-27 13:56] LABS: Folate Level > 20.0 ng/mL (4.8-37.3)
== END 2024-09-02 23:59 | disposition home or self-care (01) ==
PROVIDERS: Internal Medicine; PCP Family Medicine; Visit Provider Nurse Practitioner Family
DX: C50.411 Malignant neoplasm of upper-outer quadrant of right female breast (principal); C83.31 Diffuse large B-cell lymphoma, lymph nodes of head, face, and neck; Z85.3 Personal history of malignant neoplasm of breast; D50.9 Iron deficiency anemia, unspecified; N28.89 Other specified disorders of kidney and ureter; R94.6 Abnormal results of thyroid function studies; Z92.3 Personal history of irradiation
CPT/HCPCS: 36415; 80053; 82607; 82728; 82746; 83010; 83540; 83550; 83615; 85025; 85045; 99213

== ENCOUNTER 2024-12-04 11:15 | Oncology outpatient (recurring) (ONCR) | payer MEDICARE, SELFPAY ==
[2024-12-04 11:36] LABS: Hematocrit 32.2 % (36-47); Hemoglobin 10.00 g/dL (11.27-16.99); Mean Corpuscular HGB Conc 31.1 g/dL (30-55); Mean Corpuscular Hemoglobin 31.8 pg (27-33); Mean Corpuscular Volume 102.5 fl (85-98); Nucleated Red Blood Cells % 0 %; Platelet Count 212 10^3/cmm (157-399); Red Blood Count 3.14 10^6/uL (3.85-5.65); White Blood Count 8.00 10^3/uL (3.29-11.43)
[2024-12-04 12:04] LABS: Alanine Aminotransferase 11 U/L (0-33); Albumin Level 2.9 g/dL (3.5-5.2); Alkaline Phosphatase 106 U/L (35-105); Anion Gap 14.6 (5-19); Aspartate Amino Transferase 15 U/L (0-32); Blood Urea Nitrogen 28 mg/dL (8-23); Calcium 8.0 mg/dL (8.5-10.5); Carbon Dioxide 17 mmol/L (22-29); Chloride 116 mmol/L (98-107); Ferritin 120 ng/mL (15-150); Globulin 2.5 g/dL (1.3-4.6); Glucose 106 mg/dL (65-115); Iron 54 ug/dL (37-145); Osmolality Calculated 302 mOsm/kg (285-295); Potassium 4.6 mmol/L (3.5-5.1); Sodium 143 mmol/L (136-145); Total Iron Binding Capacity 178 mcg/dl; Total Protein 5.4 g/dL (6.6-8.7); Unsaturated Iron Binding 124 ug/dL (112-347)
== END 2024-12-04 12:44 | disposition home or self-care (01) ==
PROVIDERS: Internal Medicine; PCP Family Medicine; Visit Provider Nurse Practitioner Family
DX: C50.411 Malignant neoplasm of upper-outer quadrant of right female breast (principal); C83.31 Diffuse large B-cell lymphoma, lymph nodes of head, face, and neck
CPT/HCPCS: 36415; 80053; 82728; 82746; 83010; 83540; 83550; 83615; 85025; 85045

== ENCOUNTER 2024-12-04 12:19 | Inpatient (IN) | payer MEDICARE, SELFPAY ==
[2024-12-04] VITALS (12 sets, daily range): BP systolic 96–132; BP diastolic 54–86; PULSE 95–109; RESP 16–20; TEMP 36.4–36.7; O2SAT 91–100; BMI 19.3; BMI 20.1
--- NOTE | 2024-12-04 12:23 | ECG_ITS ---
[facility] 2024-[facility]04 Pat Name: Lexy Chawla Department: Room: Gender: Female Manager Country: : 1945 Requested By: Lee Aguilar Order Number: [id number] Zoya MD: Mack Gudino M.D. Measurements Intervals Welcome Rate: 103 P: 40 UT: 145 QRS: -2 QRSD: 80 T: -41 QT: 350 QTc: 460 Interpretive Statements SINUS TACHYCARDIA INDETERMINATE AXIS LOW QRS VOLTAGE IN PRECORDIAL LEADS [QRS DEFLECTION < 1.0 mV IN CHEST LEADS] POSSIBLE ANTERIOR MYOCARDIAL INFARCTION , PROBABLY OLD [30 ms Q WAVE IN V3/V4, OR R < 0.2 mV IN V4] ABNORMAL RHYTHM ECG Compared to ECG 06/19/2024 15:58:22 Indeterminate axis now present Myocardial infarct finding still present Electronically Signed On 12-05-2024 08:36:54 CDT by Mack Gudino M.D. [id number]
--- NOTE | 2024-12-04 12:23 | XR_ITS ---
WS: [id number] XR chest 1V portable [id number] REASON FOR EXAM: dyspnea/cough FINDINGS: The chest is unchanged compared to 06/19/2024. Moderate tortuosity and ectasia of the thoracic aorta. Normal heart size. Calcified granulomatous disease bilaterally. No acute pulmonary parenchymal or pleural abnormality. Moderate degenerative spondylosis in the lower thoracic spine. XR/XR chest 1V portable [id number] IMPRESSION: Stable chest without acute abnormality.
--- OUTSIDE RECORDS SUMMARY | 2024-12-04 12:30 | XMS_ITS | Encounter Summary ---
Author Organization [facility] Address [address] [place] [address] Care Team Providers Care Wooden Fence Erector Name Role Phone Torin Sandhu MD Primary Care Provider [phone] Encounter Details Date Type Department Care Team (Latest Contact Info) Description 08/13/2001 Outpatient Historical [facility] Jamal Stevenson MD [address] [place] [address] Pain in limb (Primary Dx); PERS HX CIRCULATORY DIS NEC Social History Tobacco Use Types Packs/Day Years Used Date Smoking Tobacco: Never Assessed Comments Unknown Sex and Gender Information Value Date Recorded Sex Assigned at Not on file 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
--- OUTSIDE RECORDS SUMMARY | 2024-12-04 12:30 | XMS_ITS | Encounter Summary ---
Author Organization [facility] Address [address] [place] [address] Care Team Providers Care Fur Drummer Name Role Phone Torin Sandhu MD Primary Care Provider [phone] Encounter Details Date Type Department Care Team (Latest Contact Info) Description 06/12/2006 [facility] [address] [place] [address] Nakul Carson MD NO ADDRESS ON FILE Other Atopic Dermatitis and Related Conditions (Primary Dx); Actinic Keratosis; Other Seborrheic Keratosis Social History Tobacco Use Types Packs/Day Years Used Date Smoking Tobacco: Never Assessed Comments Unknown Sex and Gender Information Value Date Recorded Sex Assigned at Not on file 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
--- OUTSIDE RECORDS SUMMARY | 2024-12-04 12:30 | XMS_ITS | Encounter Summary ---
Author Organization [facility] Address [address] [place] [address] Care Team Providers Care Shipping Inspector Name Role Phone Torin Sandhu MD Primary Care Provider [phone] Encounter Details Date Type Department Care Team (Latest Contact Info) Description 01/24/2000 Outpatient Historical [facility] Jamal Stevenson MD [address] [place] [address] Acute sinusitis, unspecified (Primary Dx); Other bursitis disorders Social History Tobacco Use Types Packs/Day Years Used Date Smoking Tobacco: Never Assessed Comments Unknown Sex and Gender Information Value Date Recorded Sex Assigned at Not on file 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
--- OUTSIDE RECORDS SUMMARY | 2024-12-04 12:30 | XMS_ITS | Encounter Summary ---
Author Organization [facility] Address [address] [place] [address] Care Team Providers Care Or Rn Name Role Phone Torin Sandhu MD Primary Care Provider [phone] Encounter Details Date Type Department Care Team (Late st Contact Info) Description 03/15/2007 [facility] [address] [place] [address] Nakul Carson MD NO ADDRESS ON FILE Social History Tobacco Use Types Packs/Day Years Used Date Smoking Tobacco: Never Assessed Comments Unknown Sex and Gender Information Value Date Recorded Sex Assigned at Not on file 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
--- OUTSIDE RECORDS SUMMARY | 2024-12-04 12:30 | XMS_ITS | Clinical Summary ---
Author Organization [facility] Address [address] [place] [address] Care Team Providers Care Candy Butcher Name Role Phone Torin Sandhu MD Primary Care Provider [phone] Allergies Active Allergy Reactions Criticality Noted Date Comments Clindamycin Shortness of Breath/Wheezing High 2016 Penicillins Rash Low 03/28/2013 Medications BONIVA 150 mg Oral Tab Take by mouth. Activ e fluocinonide (LIDEX) 0.05 % CreamIndicatio ns:Other atopic dermatitis and related conditions Apply to affected area 2 times daily. Apply bid for rash on trunk and legs x 1 mos 120 Gram 2 4 Active hydrOXYzine HCl (ATARAX) 10 mg tabletIndicati ons:Other atopic dermatitis and related conditions Take 1 Tab by mouth see administration instructions. One to two tabs qhs prn itching. Drowsiness precautions 90 Tab 1 4 Active multivitamin (DAILY-ALONDRA) tablet Take 1 Tablet by mouth daily. Active aspirin (ECOTRIN EC) 81 mg Tablet, Delayed Release (E.C.) Take 81 mg by mouth daily. Active diflorasone-Em ollient (APEXICON E) 0.05 % Cream Apply to affected area 2 times daily Apply bid for rash on legs and chest x 3 wks. 60 Gram 2 5 Active mometasone (ELOCON) 0.1 % Cream 7 Active neomycin (MYCIFRADIN) 500 mg tablet 7 Active metroNIDAZOLE (FLAGYL) 500 mg tablet 7 Active KLOR-CON 10 10 mEq Extended Release tablet 7 Active Cholestyramine -Sucrose 4 gram Powder 7 Active lidocaine-pril ocaine (EMLA) 2.5-2.5 % Cream Apply to affected area see administration instructions Apply tid for itching. 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 Gender Identity Not on file Sexual Orientation Not on file Last Filed Vital Signs Vital Sign Reading Time Taken Comments Blood Pressure 126/41 08/25/2016 4:00 PM CDT Pulse 101 08/25/2016 4:00 PM CDT Temperature - - Respiratory Rate - - Oxygen Saturation - - Inhaled Oxygen Concentration - - Weight 77.1 kg (170 lb) 08/25/2016 4:00 PM CDT Height 167.6 cm (5' 6 ) 08/25/2016 4:00 PM CDT Body Mass Index 27.44 08/25/2016 4:00 PM CDT Plan of Treatment Health Maintenance Due Date Last Done Comments DTAP/TDAP/TD VACCINES (1 - Tdap) 1964 PNEUMOCOCCAL VACCINE 50+ YEARS (1 of 1 - PCV) 11/05/18 96 ZOSTER VACCINE (1 of 2) 11/06/1995 OSTEOPOROSIS SCREENING 2010 RSV VACCINE (60+ or ) (1 - 1-dose 75+ series) 2020 INFLUENZA VACCINE (#1) 2024 Insurance MEDICARE PART A AND B [employer] [facility] [place] [address] Care Teams Candy Butcher Relationship Specialty Start Date End Date Torin Sandhu MD PCP - General 04/10/08
--- OUTSIDE RECORDS SUMMARY | 2024-12-04 12:30 | XMS_ITS | Encounter Summary ---
Author Organization [facility] Address [address] [place] [address] Care Team Providers Care Head Doffer Name Role Phone Torin Sandhu MD Primary Care Provider [phone] Encounter Details Date Type Department Care Team (Latest Contact Info) Description 01/09/2001 Outpatient Historical [facility] Mingo Herrera MD [address] [place], [place] [id number] STOMACH FUNCTION DIS NEC (Primary Dx); GASTRITIS/DUODEN NOS W/O HEMORRH; CIRCULATING ANTICOAG DIS Social History Tobacco Use Types Packs/Day Years Used Date Smoking Tobacco: Never Assessed Comments Unknown Sex and Gender Information Value Date Recorded Sex Assigned at Not on file Legal Sex Female 4:35 AM ESTHETICS INSTRUCTOR Gender Identity Not on file Sexual Orientation Not on file documented as of this encounter Plan of Treatment Not on file documented as of this encounter Visit Diagnoses Diagnosis Dyspepsia and other specified disorders of function of stomach- Primary Unspecified gastritis and gastroduodenitis without mention of hemorrhage Hemorrhagic disorder due to intrinsic circulating anticoagulants documented in this encounter Care Teams Head Doffer Relationship Specialty Start Date End Date Torin Sandhu MD PCP - General 04/10/08 documented as of this encounter
--- OUTSIDE RECORDS SUMMARY | 2024-12-04 12:30 | XMS_ITS | Encounter Summary ---
Author Organization [facility] Address [address] [place] [address] Care Team Providers Care Roof Truss Machine Tender Name Role Phone Torin Sandhu MD Primary Care Provider [phone] Encounter Details Date Type Department Care Team (Latest Contact Info) Description 02/03/2000 Outpatient Historical [facility] Rheumatology- [facility] [address] [place] [address] Sukhjinder Rae MD NO ADDRESS ON FILE Rheumatism, unspecified and fibrositis (Primary Dx); Generalized osteoarthrosis, involving multiple sites Social History Tobacco Use Types Packs/Day Years Used Date Smoking Tobacco: Never Assessed Comments Unknown Sex and Gender Information Value Date Recorded Sex Assigned at Not on file Legal Sex Female 4:35 AM ADDICTION PROFESSIONAL Gender Identity Not on file Sexual Orientation Not on file documented as of this encounter Plan of Treatment Not on file documented as of this encounter Visit Diagnoses Diagnosis Rheumatism, unspecified and fibrositis- Primary Generalized osteoarthrosis, involving multiple sites documented in this encounter Care Teams Roof Truss Machine Tender Relationship Specialty Start Date End Date Torin Sandhu MD PCP - General 04/10/08 documented as of this encounter
--- OUTSIDE RECORDS SUMMARY | 2024-12-04 12:30 | XMS_ITS | Encounter Summary ---
Author Organization [facility] Address [address] [place] [address] Care Team Providers Care Information Security Name Role Phone Torin Sandhu MD Primary Care Provider [phone] Encounter Details Date Type Department Care Team (Late st Contact Info) Description 04/12/2007 [facility]patient [facility] [address] [place] [address] Nakul Carson MD NO ADDRESS ON FILE Social History Tobacco Use Types Packs/Day Years Used Date Smoking Tobacco: Never Assessed Comments Unknown Sex and Gender Information Value Date Recorded Sex Assigned at Not on file Legal Sex Female 4:35 AM HOME OFFICE CLAIMS EXAMINER Gender Identity Not on file Sexual Orientation Not on file documented as of this encounter Plan of Treatment Not on file documented as of this encounter Visit Diagnoses Not on filedocumented in this encounter Care Teams Information Security Relationship Specialty Start Date End Date Torin Sandhu MD PCP - General 04/10/08 documented as of this encounter
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
--- OUTSIDE RECORDS SUMMARY | 2024-12-04 12:30 | XMS_ITS | Encounter Summary ---
Author Organization [facility] Address [address] [place] [address] Care Team Providers Care Crew Member Name Role Phone Torin Sandhu MD Primary Care Provider [phone] Encounter Details Date Type Department Care Team (Latest Contact Info) Description 08/24/2006 Outpatient Historical [facility] [address] [place] [address] Nakul Carson MD NO ADDRESS ON FILE Contact Dermatitis and Other Eczema, due to Unspecified Cause (Primary Dx) Social History Tobacco Use Types Packs/Day Years Used Date Smoking Tobacco: Never Assessed Comments Unknown Sex and Gender Information Value Date Recorded Sex Assigned at Not on file Legal Sex Female 4:35 AM FORGING PRESS LEVER TENDER Gender Identity Not on file Sexual Orientation Not on file documented as of this encounter Plan of Treatment Not on file documented as of this encounter Visit Diagnoses Diagnosis Contact dermatitis and other eczema, due to unspecified cause- Primary documented in this encounter Care Teams Crew Member Relationship Specialty Start Date End Date Torin Sandhu MD PCP - General 04/10/08 documented as of this encounter
--- OUTSIDE RECORDS SUMMARY | 2024-12-04 12:30 | XMS_ITS | Encounter Summary ---
Author Organization [facility] Address [address] [place] [address] Care Team Providers Care Jr. Systems Administrator Name Role Phone Torin Sandhu MD Primary Care Provider [phone] Encounter Details Date Type Department Care Team (Latest Contact Info) Description 10/31/2002 Outpatient Historical HIS [facility] Mingo Herrera MD [address] [place], [place] [id number] CERVICALGIA (Primary Dx); EDEMA; OSTEOARTHROS NOS-UNSPEC; DERMATOPHYTOSIS OF NAIL Social History Tobacco Use Types Packs/Day Years Used Date Smoking Tobacco: Never Assessed Comments Unknown Sex and Gender Information Value Date Recorded Sex Assigned at Not on file Legal Sex Female 4:35 AM CAMERA OPERATOR Gender Identity Not on file Sexual Orientation Not on file documented as of this encounter Plan of Treatment Not on file documented as of this encounter Visit Diagnoses Diagnosis Cervicalgia- Primary Edema Osteoarthrosis, unspecified whether generalized or localized, unspecified site Dermatophytosis of nail documented in this encounter Care Teams Jr. Systems Administrator Relationship Specialty Start Date End Date Torin Sandhu MD PCP - General 04/10/08 documented as of this encounter
--- OUTSIDE RECORDS SUMMARY | 2024-12-04 12:30 | XMS_ITS | Encounter Summary ---
Author Organization [facility] Address [address] [place] [address] Care Team Providers Care Production Machine Tender Name Role Phone Torin Sandhu MD Primary Care Provider [phone] Encounter Details Date Type Department Care Team (Latest Contact Info) Description 12/15/2000 Outpatient Historical HIS [facility] Mingo Herrear MD [address] [place], [place] [address] Allergic rhinitis, cause unspecified (Primary Dx); ocean transportation intermediary (current) use of anticoagulants Social History Tobacco Use Types Packs/Day Years Used Date Smoking Tobacco: Never Assessed Comments Unknown Sex and Gender Information Value Date Recorded Sex Assigned at Not on file Legal Sex Female 4:35 AM APPLIANCE SERVICE TECHNICIAN Gender Identity Not on file Sexual Orientation Not on file documented as of this encounter Plan of Treatment Not on file documented as of this encounter Visit Diagnoses Diagnosis Allergic rhinitis, cause unspecified- Primary ocean transportation intermediary (current) use of anticoagulants Long-term (current) use of anticoagulants documented in this encounter Care Teams Production Machine Tender Relationship Specialty Start Date End Date Torin Sandhu MD PCP - General 04/10/08 documented as of this encounter
--- OUTSIDE RECORDS SUMMARY | 2024-12-04 12:30 | XMS_ITS | Encounter Summary ---
Author Organization [facility] Address [address] [place] [address] Care Team Providers Care Behavioral Interventionist Name Role Phone Torin Sandhu MD Primary Care Provider [phone] Encounter Details Date Type Department Care Team (Late st Contact Info) Description 11/25/2002 Outpatient Historical [facility] Social History Tobacco Use Types Packs/Day Years Used Date Smoking Tobacco: Never Assessed Comments Unknown Sex and Gender Information Value Date Recorded Sex Assigned at Not on file Legal Sex Female 4:35 AM EDITOR MAP Gender Identity Not on file Sexual Orientation Not on file documented as of this encounter Plan of Treatment Not on file documented as of this encounter Visit Diagnoses Not on filedocumented in this encounter Care Teams Behavioral Interventionist Relationship Specialty Start Date End Date Torin Sandhu MD PCP - General 04/10/08 documented as of this encounter
--- OUTSIDE RECORDS SUMMARY | 2024-12-04 12:30 | XMS_ITS | Encounter Summary ---
Author Organization [facility] Address [address] [place] [address] Care Team Providers Care Roof Cement And Paint Maker Helper Name Role Phone Torin Sandhu MD Primary Care Provider [phone] Encounter Details Date Type Department Care Team (Latest Contact Info) Description 05/06/2002 Outpatient Historical HIS [facility] Mingo Herrera MD [address] [place], [place] [address] DERMATOPHYTOSIS OF BODY (Primary Dx) Social History Tobacco Use Types Packs/Day Years Used Date Smoking Tobacco: Never Assessed Comments Unknown Sex and Gender Information Value Date Recorded Sex Assigned at Not on file Legal Sex Female 4:35 AM WAREHOUSE UNLOADER Gender Identity Not on file Sexual Orientation Not on file documented as of this encounter Plan of Treatment Not on file documented as of this encounter Visit Diagnoses Diagnosis Dermatophytosis of the body- Primary documented in this encounter Care Teams Roof Cement And Paint Maker Helper Relationship Specialty Start Date End Date Torin Sandhu MD PCP - General 04/10/08 documented as of this encounter
--- OUTSIDE RECORDS SUMMARY | 2024-12-04 12:30 | XMS_ITS | Clinical Summary ---
Author Organization [facility] Address [address] Attn: Epic [place] [address] Care Team Providers Care Prop Sawyer Name Role Phone Torin Sandhu MD Primary Care Provider [phone] Allergies Active Allergy Reactions Criticality Noted Date Comments Clindamycin Shortness of Breath/Wheezing High 2016 Penicillins Rash Low 03/28/2013 Medications lidocaine-pril ocaine (EMLA) 2.5-2.5 % Cream Apply to affected area see administration instructions Apply tid for itching. 30 Gram 4 7 Active aspirin (ECOTRIN EC) 81 mg Tablet, Delayed Release (E.C.) Take 81 mg by mouth daily. 5 Active Cholestyramine -Sucrose 4 gram Powder 7 Active potassium chloride (Klor-Con 10) 10 mEq Extended Release tablet 7 Active mometasone (ELOCON) 0.1 % Cream 7 Active rivaroxaban 20 mg tablet Take 20 mg by mouth daily with supper. Active metoprolol tartrate 25 mg tablet Take 25 mg by mouth 2 times daily. Active pantoprazole 40 mg tablet,delayed release Take 40 mg by mouth daily. Active levothyroxine 100 mcg tablet Take 100 mcg by mouth daily in the morning. Active HYDROcodone 5 mg-acetaminoph en 325 mg tablet Take 1 Tablet by mouth every 4 hours as needed for Pain, Moderate. Active pregabalin 150 mg capsule Take 150 mg by mouth 2 times daily. Active ondansetron (ZOFRAN ODT) 4 mg Tablet, Rapid Dissolve 3 Active nystatin (MYCOSTATIN) 100,000 unit/mL suspension 3 Active methenamine hippurate (HIPREX) 1 gram Tablet 3 Active ibandronate 150 mg tablet Take by mouth. A ctive exemestane (AROMASIN) 25 mg tablet 3 Active diphenoxylate- atropine 2.5 mg-0.025 mg tablet TAKE 2 TABLETS BY MOUTH FOUR TIMES DAILY NEEDED FOR DIARRHEA 0 Active Cholecalcifero l, Vitamin D3, 50 mcg (2,000 unit) Capsule 5,000 Units. Act domenica anastrozole (ARIMIDEX) 1 mg tablet Take 1 mg by mouth daily. 1 Active multivitamin (DAILY-ALONDRA) tablet Active furosemide (LASIX) 40 mg tablet Take 1 Tablet (40 mg) by mouth daily. 30 Tablet 5 Active spironolactone (ALDACTONE) 25 mg tablet Take 1 Tablet (25 mg) by mouth daily. 30 Tablet 5 Active zinc OXIDE-cod liver oil (DESITIN) 40 % Paste Apply to affected area 2 times daily. Coccyx- Wash with soap and water, pat dry. Apply maximum strength Desitin BID and PRN as needed. 454 Gram 5 Active Active Problems Problem Noted Date Diagnosed Date Weight loss, abnormal 06/05/2024 Thrombocytopenia 06/03/2024 Hypoalbuminemia 06/03/2024 Elevated INR 06/03/2024 Fatty liver disease, nonalcoholic 06/03/2024 Anemia of chronic disease 06/03/2024 Diarrhea 06/03/2024 Other ascites 06/02/2024 Chronic diarrhea 06/02/2024 Dysphagia 06/02/2024 CKD stage 3a, GFR 45-59 ml/min 06/02/2024 GI bleeding 05/31/2024 GERD (gastroesophageal reflux disease) Diverticulosis 05/31/2024 Hypothyroidism 05/31/2024 DVT (deep venous thrombosis) 05/31/2024 Hypertension 05/31/2024 Anasarca 05/31/2024 Pneumonia 05/31/2024 Anemia 05/31/2024 Cirrhosis of liver with ascites 05/31/2024 Acute on chronic congestive heart failure 2024 Encounters Date Type Department Care Team Description 12/03/2024 External Device Data STL ABSTRACTION Provider, Abstract 11/19/2024 External Device Data STL ABSTRACTION Provider, Abstract 10/22/2024 External Device Data STL ABSTRACTION Provider, Abstract 10/08/2024 External Device Data ST[facility] ABSTRACTION Provider, Abstract 09/18/2024 External Device Data [facility] ABSTRACTION Provider, Abstract 09/18/2024 External Device Data ST[facility] ABSTRACTION Provider, Abstract 09/03/2024 External Device Data ST[facility] ABSTRACTION Provider, Abstract from Last 3 Months Family History Medical History Relation Name Comments Breast Cancer Mother Relation Name Status Comments Mother Social History Tobacco Use Types Packs/Day Years Used Date Smoking Tobacco: Never Tobacco Cessation:Counseling Given: Not Answered Alcohol Use Standard Drinks/Week Comments Never 0.8 (1 standard drink = 0.6 oz p ure alcohol) Feeling Safe Answer Date Recorded Are you in a relationship wi th someone who hurts you emotionally and/or physically? No 05/31/2024 Food Insecurity Answer Date Recorded Patient needs follow up regardin 07/02/2024 Transportation Needs Answer Date Record ed Patient needs follow up regardin 07/02/2024 Housing Stability Answer Date Recorded Social/Environmental Concerns No concerns Utility Needs Answer Date Recorded Patient needs follow up regardin 07/02/2024 Comments Unknown Sex and Gender Information Value Date Recorded Sex Assigned at Not on file Legal Sex Female 7:43 AM PEANUT SHELLER Gender Identity Not on file Sexual Orientation Not on file Last Filed Vital Signs Vital Sign Reading Time Taken Comments Blood Pressure 119/81 06/06/2024 12:40 PM CDT Pulse 88 06/06/2024 12:40 PM CDT Temperature 36.6 C (97.8 F) 06/06/2024 12:40 PM CDT Respiratory Rate 18 06/06/2024 12:40 PM CDT Oxygen Saturation 91% 06/06/2024 12:40 PM CDT Inhaled Oxygen Concentration - - Weight 87.2 kg (192 lb 3.9 oz) 06/06/2024 4:41 A M CDT Height 165.1 cm (5' 5 ) 06/06/2024 4:41 AM CDT Body Mass Index 31.99 06/06/2024 4:41 AM CDT Plan of Treatment Health Maintenance Due Date Last Done Comments DTAP/TDAP/TD VACCINES (1 - Tdap) 1964 ZOSTER VACCINE (1 of 2) 1964 OSTEOPOROSIS SCREENING 2010 RSV VACCINE (60+ or ) (1 - 1-dose 75+ series) 2020 INFLUENZA VACCINE (#1) 2024 2, 01/02/2019, 12/12/2017 COVID-19 Vaccine (2023-2 5 season) 2024 01/05/2024, 02/14/2023, 07/20/2022, Additional history exists PNEUMOCOCCAL VACCINE 50+ YEARS Completed 06/15/2023 COLORECTAL SCREENING Discontinued 01/09/2024 Colorectal Cancer Screening Discontinued FIT-DNA Q 3 years Discontinued FIT/FOBT Q 1 year Discontinued Flex Sig/CT Colonography Q 5 years Discontinued Procedures Procedure Name Priority Date/Time Associated Diagnosis Comments ENDOSCOPY, COLON, SCREENING Routine 01/09/2024 11:33 AM PEANUT SHELLER from Last 3 Months or Most Recently Relevant to Health Maintenance Results * ENDOSCOPY, COLON, SCREENING (01/09/2024 11:33 AM PEANUT SHELLER) us Abstract Provider GI PROCEDURE ORDERABLES Final Result from Last 3 Months or Most Recently Relevant to Health Maintenance Insurance [facility] [id number] Advance Directives For more information, please contact: [phone] * Full Code (Latest Code Status on File) Date Activated Date Inactivated Comments 05/31/2024 2:22 AM 06/06/2024 7:12 PM * Full Code Date Activated Date Inactivated Comments 07/14/2022 2:18 PM 07/14/2022 4:41 PM Care Teams Prop Sawyer Relationship Specialty Start Date End Date Torin Sandhu MD [address] [facility] [address] [place] [address] PCP - General 04/10/08
--- OUTSIDE RECORDS SUMMARY | 2024-12-04 12:30 | XMS_ITS | Encounter Summary ---
Author Organization [facility] Address [address] [place] [address] Care Team Providers Care Oil Field Pipeline Supervisor Name Role Phone Torin Sandhu MD Primary Care Provider [phone] Encounter Details Date Type Department Care Team (Latest Contact Info) Description 02/22/2000 Outpatient Historical [facility] Jamal Stevenson MD [address] [place] [id number] Bunion (Primary Dx) Social History Tobacco Use Types Packs/Day Years Used Date Smoking Tobacco: Never Assessed Comments Unknown Sex and Gender Information Value Date Recorded Sex Assigned at Not on file Legal Sex Female 4:35 AM SECTION BEAMER Gender Identity Not on file Sexual Orientation Not on file documented as of this encounter Plan of Treatment Not on file documented as of this encounter Visit Diagnoses Diagnosis Bunion- Primary documented in this encounter Care Teams Oil Field Pipeline Supervisor Relationship Specialty Start Date End Date Torin Sandhu MD PCP - General 04/10/08 documented as of this encounter
--- OUTSIDE RECORDS SUMMARY | 2024-12-04 12:30 | XMS_ITS | Encounter Summary ---
Author Organization [facility] Address [address] [place] [address] Care Team Providers Care Sawmill Worker Name Role Phone Torin Sandhu MD Primary Care Provider [phone] Encounter Details Date Type Department Care Team (Latest Contact Info) Description 11/22/2001 Outpatient Historical HIS [facility] Mingo Herrera MD [address], [place] [id number] ALLERGIC RHINITIS NEC (Primary Dx) Social History Tobacco Use Types Packs/Day Years Used Date Smoking Tobacco: Never Assessed Comments Unknown Sex and Gender Information Value Date Recorded Sex Assigned at Not on file Legal Sex Female 4:35 AM HOLLOW TILE PARTITION ERECTOR Gender Identity Not on file Sexual Orientation Not on file documented as of this encounter Plan of Treatment Not on file documented as of this encounter Visit Diagnoses Diagnosis Allergic rhinitis due to other allergen- Primary documented in this encounter Care Teams Sawmill Worker Relationship Specialty Start Date End Date Torin Sandhu MD PCP - General 04/10/08 documented as of this encounter
--- OUTSIDE RECORDS SUMMARY | 2024-12-04 12:30 | XMS_ITS | Encounter Summary ---
Author Organization [facility] Address [address] [place] [address] Care Team Providers Care Glass Cutting Machine Feeder Name Role Phone Torin Sandhu MD Primary Care Provider [phone] Encounter Details Date Type Department Care Team (Latest Contact Info) Description 05/27/2002 Outpatient Historical HIS [facility] Mingo Herrera MD [address], [place] [id number] ACUTE URI NOS (Primary Dx) Social History Tobacco Use Types Packs/Day Years Used Date Smoking Tobacco: Never Assessed Comments Unknown Sex and Gender Information Value Date Recorded Sex Assigned at Not on file Legal Sex Female 4:35 AM KNOT BUMPER Gender Identity Not on file Sexual Orientation Not on file documented as of this encounter Plan of Treatment Not on file documented as of this encounter Visit Diagnoses Diagnosis Acute upper respiratory infections of unspecified site- Primary documented in this encounter Care Teams Glass Cutting Machine Feeder Relationship Specialty Start Date End Date Torin Sandhu MD PCP - General 04/10/08 documented as of this encounter
--- OUTSIDE RECORDS SUMMARY | 2024-12-04 12:30 | XMS_ITS | Encounter Summary ---
Author Organization [facility] Address [address] [place] [address] Care Team Providers Care Baster Hand Name Role Phone Torin Sandhu MD Primary Care Provider [phone] Encounter Details Date Type Department Care Team (Latest Contact Info) Description 02/13/2001 Outpatient Historical HIS [facility] Jamal Stevenson MD [address] [place] [address] AFTERCARE MARKETING ENGINEER ANTICOAG USE (Primary Dx) Social History Tobacco Use Types Packs/Day Years Used Date Smoking Tobacco: Never Assessed Comments Unknown Sex and Gender Information Value Date Recorded Sex Assigned at Not on file Legal Sex Female 4:35 AM TRACTOR CRANE ENGINEER Gender Identity Not on file Sexual Orientation Not on file documented as of this encounter Plan of Treatment Not on file documented as of this encounter Visit Diagnoses Diagnosis manager terminal (current) use of anticoagulants- Primary Long-term (current) use of anticoagulants documented in this encounter Care Teams Baster Hand Relationship Specialty Start Date End Date Torin Sandhu MD PCP - General 04/10/08 documented as of this encounter
--- OUTSIDE RECORDS SUMMARY | 2024-12-04 12:30 | XMS_ITS | Encounter Summary ---
Author Organization [facility] Address [address] [place] [address] Care Team Providers Care Power Grader Operator Name Role Phone Torin Sandhu MD Primary Care Provider [phone] Encounter Details Date Type Department Care Team (Latest Contact Info) Description 09/01/2006 Outpatient [facility] [address] [place] [address] Nakul Carson MD NO ADDRESS ON FILE Other Atopic Dermatitis and Related Conditions (Primary Dx) Social History Tobacco Use Types Packs/Day Years Used Date Smoking Tobacco: Never Assessed Comments Unknown Sex and Gender Information Value Date Recorded Sex Assigned at Not on file Legal Sex Female 4:35 AM GLASS BLOWING INSTRUCTOR Gender Identity Not on file Sexual Orientation Not on file documented as of this encounter Plan of Treatment Not on file documented as of this encounter Visit Diagnoses Diagnosis Other atopic dermatitis and related conditions- Primary documented in this encounter Care Teams Power Grader Operator Relationship Specialty Start Date End Date Torin Sandhu MD PCP - General 04/10/08 documented as of this encounter
--- OUTSIDE RECORDS SUMMARY | 2024-12-04 12:30 | XMS_ITS | Encounter Summary ---
Author Organization [facility] Address [address] [place] [address] Care Team Providers Care Commercial Loan Manager Name Role Phone Torin Sandhu MD Primary Care Provider [phone] Encounter Details Date Type Department Care Team (Latest Contact Info) Description 01/18/2000 Outpatient Historical HIS [facility] Jamal Stevenson MD [address] [place] [address] Sprain of ankle, unspecified site (Primary Dx); Bunion Social History Tobacco Use Types Packs/Day Years Used Date Smoking Tobacco: Never Assessed Comments Unknown Sex and Gender Information Value Date Recorded Sex Assigned at Not on file Legal Sex Female 4:35 AM ENVELOPE SEALER Gender Identity Not on file Sexual Orientation Not on file documented as of this encounter Plan of Treatment Not on file documented as of this encounter Visit Diagnoses Diagnosis Sprain of ankle, unspecified site- Primary Bunion documented in this encounter Care Teams Commercial Loan Manager Relationship Specialty Start Date End Date Torin Sandhu MD PCP - General 04/10/08 documented as of this encounter
--- OUTSIDE RECORDS SUMMARY | 2024-12-04 12:30 | XMS_ITS | Encounter Summary ---
Author Organization [facility] Address [address] [place] [address] Care Team Providers Care Electronics Parts Sales Representative Name Role Phone Torin Sandhu MD Primary Care Provider [phone] Encounter Details Date Type Department Care Team (Latest Contact Info) Description 06/12/2000 Outpatient Historical HIS [facility] Jamal Stevenson MD [address] [place] [address] MCFP (current) use of anticoagulants (Primary Dx) Social History Tobacco Use Types Packs/Day Years Used Date Smoking Tobacco: Never Assessed Comments Unknown Sex and Gender Information Value Date Recorded Sex Assigned at Not on file Legal Sex Female 4:35 AM PAYROLL MANAGER Gender Identity Not on file Sexual Orientation Not on file documented as of this encounter Plan of Treatment Not on file documented as of this encounter Visit Diagnoses Diagnosis MCFP (current) use of anticoagulants- Primary Long-term (current) use of anticoagulants documented in this encounter Care Teams Electronics Parts Sales Representative Relationship Specialty Start Date End Date Torin Sandhu MD PCP - General 04/10/08 documented as of this encounter
--- OUTSIDE RECORDS SUMMARY | 2024-12-04 12:30 | XMS_ITS | Encounter Summary ---
Author Organization [facility] Address [address] [place] [address] Care Team Providers Care Electronics Technician Apprentice Name Role Phone Torin Sandhu MD Primary Care Provider [phone] Encounter Details Date Type Department Care Team (Latest Contact Info) Description 04/12/2006 [facility]patient [facility] [address] [place] [address] Nakul Carson MD NO ADDRESS ON FILE Other Atopic Dermatitis and Related Conditions (Primary Dx) Social History Tobacco Use Types Packs/Day Years Used Date Smoking Tobacco: Never Assessed Comments Unknown Sex and Gender Information Value Date Recorded Sex Assigned at Not on file Legal Sex Female 4:35 AM KITCHEN HELP HANDYMAN Gender Identity Not on file Sexual Orientation Not on file documented as of this encounter Plan of Treatment Not on file documented as of this encounter Visit Diagnoses Diagnosis Other atopic dermatitis and related conditions- Primary documented in this encounter Care Teams Electronics Technician Apprentice Relationship Specialty Start Date End Date Torin Sandhu MD PCP - General 04/10/08 documented as of this encounter
--- OUTSIDE RECORDS SUMMARY | 2024-12-04 12:30 | XMS_ITS | Encounter Summary ---
Author Organization [facility] Address [address] [place] [address] Care Team Providers Care Recovery Room Rn Name Role Phone Torin Sandhu MD Primary Care Provider [phone] Encounter Details Date Type Department Care Team (Latest Contact Info) Description 12/27/1999 Outpatient Historical HIS [facility] Cali Ayon NO ADDRESS ON FILE Lumbago (Primary Dx); Screening for other and unspecified endocrine, nutritional, metabolic and immunity disorders Social History Tobacco Use Types Packs/Day Years Used Date Smoking Tobacco: Never Assessed Comments Unknown Sex and Gender Information Value Date Recorded Sex Assigned at Not on file Legal Sex Female 4:35 AM PROFESSIONAL SERVICES SPECIALIST Gender Identity Not on file Sexual Orientation Not on file documented as of this encounter Plan of Treatment Not on file documented as of this encounter Visit Diagnoses Diagnosis Lumbago- Primary Screening for other and unspecified endocrine, nutritional, metabolic and immunity disorders documented in this encounter Care Teams Recovery Room Rn Relationship Specialty Start Date End Date Torin Sandhu MD PCP - General 04/10/08 documented as of this encounter
--- OUTSIDE RECORDS SUMMARY | 2024-12-04 12:30 | XMS_ITS | Encounter Summary ---
Author Organization [facility] Address [address] [place] [address] Care Team Providers Care Towel Hemmer Name Role Phone Torin Sandhu MD Primary Care Provider [phone] Encounter Details Date Type Department Care Team (Latest Contact Info) Description 11/13/2002 Outpatient Historical [facility] [address] [place] [id number] Mingo Herrera MD [address] [place] [address] SEBACEOUS CYST (Primary Dx) Social History Tobacco Use Types Packs/Day Years Used Date Smoking Tobacco: Never Assessed Comments Unknown Sex and Gender Information Value Date Recorded Sex Assigned at Not on file Legal Sex Female 4:35 AM CANNON CREWMEMBER Gender Identity Not on file Sexual Orientation Not on file documented as of this encounter Plan of Treatment Not on file documented as of this encounter Visit Diagnoses Diagnosis Sebaceous cyst- Primary documented in this encounter Care Teams Towel Hemmer Relationship Specialty Start Date End Date Torin Sandhu MD PCP - General 04/10/08 documented as of this encounter
--- OUTSIDE RECORDS SUMMARY | 2024-12-04 12:30 | XMS_ITS | Encounter Summary ---
Author Organization [facility] Address [address] [place] [address] Care Team Providers Care Purchasing Manager/Sales Name Role Phone Torin Sandhu MD Primary Care Provider [phone] Encounter Details Date Type Department Care Team (Latest Contact Info) Description 08/24/2006 Outpatient Historical [facility]- [place] [address] [place] [address] Nakul Carson MD NO ADDRESS ON FILE Benign Bill Skin Leg (Primary Dx); Other Atopic Dermatitis and Related Conditions Social History Tobacco Use Types Packs/Day Years Used Date Smoking Tobacco: Never Assessed Comments Unknown Sex and Gender Information Value Date Recorded Sex Assigned at Not on file Legal Sex Female 4:35 AM BANANA RIPENING ROOM SUPERVISOR Gender Identity Not on file Sexual Orientation Not on file documented as of this encounter Plan of Treatment Not on file documented as of this encounter Visit Diagnoses Diagnosis Benign bill skin leg- Primary Benign neoplasm of skin of lower limb, including hip Other atopic dermatitis and related conditions documented in this encounter Care Teams Purchasing Manager/Sales Relationship Specialty Start Date End Date Torin Sandhu MD PCP - General 04/10/08 documented as of this encounter
--- OUTSIDE RECORDS SUMMARY | 2024-12-04 12:30 | XMS_ITS | Encounter Summary ---
Author Organization [facility] Address [address] [place] [address] Care Team Providers Care Hay Stacker Operator Name Role Phone Torin Sandhu MD Primary Care Provider [phone] Encounter Details Date Type Department Care Team (Late st Contact Info) Description 03/28/2007 Outpatient [facility] [address] [place] [address] Nakul Carson MD NO ADDRESS ON FILE Social History Tobacco Use Types Packs/Day Years Used Date Smoking Tobacco: Never Assessed Comments Unknown Sex and Gender Information Value Date Recorded Sex Assigned at Not on file Legal Sex Female 4:35 AM REGIONAL EDUCATION COORDINATOR Gender Identity Not on file Sexual Orientation Not on file documented as of this encounter Plan of Treatment Not on file documented as of this encounter Visit Diagnoses Not on filedocumented in this encounter Care Teams Hay Stacker Operator Relationship Specialty Start Date End Date Torin Sandhu MD PCP - General 04/10/08 documented as of this encounter
--- OUTSIDE RECORDS SUMMARY | 2024-12-04 12:30 | XMS_ITS | Encounter Summary ---
Author Organization [facility] Address [address] [place] [address] Care Team Providers Care Director Of Entertainment Name Role Phone Torin Sandhu MD Primary Care Provider [phone] Encounter Details Date Type Department Care Team (Latest Contact Info) Description 06/22/2000 Outpatient Historical HIS [facility] Jamal Stevenson MD [address] [place] [address] Embolism and thrombosis of unspecified site (CMS/HCC) (Primary Dx); Need for prophylactic hormone replacement therapy (postmenopausal); vermin exterminator (current) use of anticoagulants Social History Tobacco Use Types Packs/Day Years Used Date Smoking Tobacco: Never Assessed Comments Unknown Sex and Gender Information Value Date Recorded Sex Assigned at Not on file Legal Sex Female 4:35 AM FINANCIAL FOUNDATIONS ASSOCIATE Gender Identity Not on file Sexual Orientation Not on file documented as of this encounter Plan of Treatment Not on file documented as of this encounter Visit Diagnoses Diagnosis Embolism and thrombosis of unspecified site (CMS/HCC)- Primary Embolism and thrombosis of unspecified site Need for prophylactic hormone replacement therapy (postmenopausal) long-term (current) use of anticoagulants Long-term (current) use of anticoagulants documented in this encounter Care Teams Director Of Entertainment Relationship Specialty Start Date End Date Torin Sandhu MD PCP - General 04/10/08 documented as of this encounter
--- OUTSIDE RECORDS SUMMARY | 2024-12-04 12:30 | XMS_ITS | Encounter Summary ---
Author Organization [facility] Address [address] [place] [address] Care Team Providers Care Financial Operations Analyst Name Role Phone Torin Sandhu MD Primary Care Provider [phone] Encounter Details Date Type Department Care Team (Latest Contact Info) Description 01/07/2000 Outpatient Historical HIS [facility] Jamal Stevenson MD [address] [place] [address] Bronchitis, not specified as acute or chronic (Primary Dx); Acute pharyngitis; Acute sinusitis, unspecified Social History Tobacco Use Types Packs/Day Years Used Date Smoking Tobacco: Never Assessed Comments Unknown Sex and Gender Information Value Date Recorded Sex Assigned at Not on file Legal Sex Female 4:35 AM WET MIX OPERATOR Gender Identity Not on file Sexual Orientation Not on file documented as of this encounter Plan of Treatment Not on file documented as of this encounter Visit Diagnoses Diagnosis Bronchitis, not specified as acute or chronic- Primary Acute pharyngitis Acute sinusitis, unspecified documented in this encounter Care Teams Financial Operations Analyst Relationship Specialty Start Date End Date Torin Sandhu MD PCP - General 04/10/08 documented as of this encounter
--- OUTSIDE RECORDS SUMMARY | 2024-12-04 12:30 | XMS_ITS | Encounter Summary ---
Author Organization [facility] Address [address] [place] [address] Care Team Providers Care Novelty Printing Machine Operator Name Role Phone Torin Sandhu MD Primary Care Provider [phone] Encounter Details Date Type Department Care Team (Latest Contact Info) Description 05/11/2006 Outpatient [facility] [address] [place] [address] Nakul Carson MD NO ADDRESS ON FILE Other Atopic Dermatitis and Related Conditions (Primary Dx) Social History Tobacco Use Types Packs/Day Years Used Date Smoking Tobacco: Never Assessed Comments Unknown Sex and Gender Information Value Date Recorded Sex Assigned at Not on file Legal Sex Female 4:35 AM REGULATORY ANALYST Gender Identity Not on file Sexual Orientation Not on file documented as of this encounter Plan of Treatment Not on file documented as of this encounter Visit Diagnoses Diagnosis Other atopic dermatitis and related conditions- Primary documented in this encounter Care Teams Novelty Printing Machine Operator Relationship Specialty Start Date End Date Torin Sandhu MD PCP - General 04/10/08 documented as of this encounter
--- OUTSIDE RECORDS SUMMARY | 2024-12-04 12:30 | XMS_ITS | Encounter Summary ---
Author Organization [facility] Address [address] [place] [address] Care Team Providers Care Dietary Services Director Name Role Phone Torin Sandhu MD Primary Care Provider [phone] Encounter Details Date Type Department Care Team (Latest Contact Info) Description 05/24/2000 Outpatient Historical HIS [facility] Cali Ayon NO ADDRESS ON FILE Sebaceous cyst (Primary Dx) Social History Tobacco Use Types Packs/Day Years Used Date Smoking Tobacco: Never Assessed Comments Unknown Sex and Gender Information Value Date Recorded Sex Assigned at Not on file Legal Sex Female 4:35 AM TOUR SALES REPRESENTATIVE Gender Identity Not on file Sexual Orientation Not on file documented as of this encounter Plan of Treatment Not on file documented as of this encounter Visit Diagnoses Diagnosis Sebaceous cyst- Primary documented in this encounter Care Teams Dietary Services Director Relationship Specialty Start Date End Date Torin Sandhu MD PCP - General 04/10/08 documented as of this encounter
--- OUTSIDE RECORDS SUMMARY | 2024-12-04 12:30 | XMS_ITS | Encounter Summary ---
Author Organization [facility] Address [address] [place] [address] Care Team Providers Care Intermediate Accountant Name Role Phone Torin Sandhu MD Primary Care Provider [phone] Encounter Details Date Type Department Care Team (Latest Contact Info) Description 01/17/2001 Outpatient Historical HIS [facility] Mingo Herrera MD [address], [place] [id number] ACUTE URI NOS (Primary Dx); ACUTE LARYNGITIS WO OBSTRUCTION Social History Tobacco Use Types Packs/Day Years Used Date Smoking Tobacco: Never Assessed Comments Unknown Sex and Gender Information Value Date Recorded Sex Assigned at Not on file Legal Sex Female 4:35 AM CONVENTIONAL UNDERWRITER Gender Identity Not on file Sexual Orientation Not on file documented as of this encounter Plan of Treatment Not on file documented as of this encounter Visit Diagnoses Diagnosis Acute upper respiratory infections of unspecified site- Primary Acute laryngitis, without mention of obstruction documented in this encounter Care Teams Intermediate Accountant Relationship Specialty Start Date End Date Torin Sandhu MD PCP - General 04/10/08 documented as of this encounter
--- OUTSIDE RECORDS SUMMARY | 2024-12-04 12:30 | XMS_ITS | Encounter Summary ---
Author Organization [facility] Address [address] [place] [address] Care Team Providers Care Curing Oven Attendant Name Role Phone Torin Sandhu MD Primary Care Provider [phone] Encounter Details Date Type Department Care Team (Latest Contact Info) Description 11/13/2002 Outpatient Historical HIS [facility] Mingo Herrera MD [address] [place], [place] [id number] Benign raymond skin trunk (Primary Dx) Social History Tobacco Use Types Packs/Day Years Used Date Smoking Tobacco: Never Assessed Comments Unknown Sex and Gender Information Value Date Recorded Sex Assigned at Not on file Legal Sex Female 4:35 AM COOPERATIVE MANAGER Gender Identity Not on file Sexual Orientation Not on file documented as of this encounter Plan of Treatment Not on file documented as of this encounter Visit Diagnoses Diagnosis Benign raymond skin trunk- Primary Benign neoplasm of skin of trunk, except scrotum documented in this encounter Care Teams Curing Oven Attendant Relationship Specialty Start Date End Date Torin Sandhu MD PCP - General 04/10/08 documented as of this encounter
--- OUTSIDE RECORDS SUMMARY | 2024-12-04 12:30 | XMS_ITS | Encounter Summary ---
Author Organization [facility] Address [address] [place] [address] Care Team Providers Care Manager Relationship Name Role Phone Torin Sandhu MD Primary Care Provider [phone] Encounter Details Date Type Department Care Team (Late st Contact Info) Description 03/29/2007 Outpatient Historical [facility] [address] [place] [address] Nakul Carson MD NO ADDRESS ON FILE Social History Tobacco Use Types Packs/Day Years Used Date Smoking Tobacco: Never Assessed Comments Unknown Sex and Gender Information Value Date Recorded Sex Assigned at Not on file Legal Sex Female 4:35 AM SERVICE DELIVERY MANAGEMENT CONSULTANT Gender Identity Not on file Sexual Orientation Not on file documented as of this encounter Plan of Treatment Not on file documented as of this encounter Visit Diagnoses Not on filedocumented in this encounter Care Teams Manager Relationship Relationship Specialty Start Date End Date Torin Sandhu MD PCP - General 04/10/08 documented as of this encounter
--- OUTSIDE RECORDS SUMMARY | 2024-12-04 12:30 | XMS_ITS | Encounter Summary ---
Author Organization [facility] Address [address] [place] [address] Care Team Providers Care Medical Device Name Role Phone Torin Sandhu MD Primary Care Provider [phone] Encounter Details Date Type Department Care Team (Latest Contact Info) Description 11/20/2002 Outpatient Historical HIS [facility] Mingo Herrera MD [address] [place], [place] [id number] Cervical spondylosis (Primary Dx); ATTEN-SURG DRESSNG/SUTUR Social History Tobacco Use Types Packs/Day Years Used Date Smoking Tobacco: Never Assessed Comments Unknown Sex and Gender Information Value Date Recorded Sex Assigned at Not on file Legal Sex Female 4:35 AM MORTGAGE ANALYST Gender Identity Not on file Sexual Orientation Not on file documented as of this encounter Plan of Treatment Not on file documented as of this encounter Visit Diagnoses Diagnosis Cervical spondylosis- Primary Cervical spondylosis without myelopathy Attention to dressings and sutures documented in this encounter Care Teams Medical Device Relationship Specialty Start Date End Date Torin Sandhu MD PCP - General 04/10/08 documented as of this encounter
--- OUTSIDE RECORDS SUMMARY | 2024-12-04 12:30 | XMS_ITS | Encounter Summary ---
Author Organization [facility] Address [address] [place] [address] Care Team Providers Care Replenishment Buyer Name Role Phone Torin Sandhu MD Primary Care Provider [phone] Encounter Details Date Type Department Care Team (Late st Contact Info) Description 02/03/2000 Outpatient Historical HIS [facility] Sukhjinder Rae MD NO ADDRESS ON FILE Pain in joint, multiple sites (Primary Dx) Social History Tobacco Use Types Packs/Day Years Used Date Smoking Tobacco: Never Assessed Comments Unknown Sex and Gender Information Value Date Recorded Sex Assigned at Not on file Legal Sex Female 4:35 AM NYLON MACHINE OPERATOR Gender Identity Not on file Sexual Orientation Not on file documented as of this encounter Plan of Treatment Not on file documented as of this encounter Visit Diagnoses Diagnosis Pain in joint, multiple sites- Primary documented in this encounter Care Teams Replenishment Buyer Relationship Specialty Start Date End Date Torin Sandhu MD PCP - General 04/10/08 documented as of this encounter
--- OUTSIDE RECORDS SUMMARY | 2024-12-04 12:30 | XMS_ITS | Encounter Summary ---
Author Organization [facility] Address [address] [place] [address] Care Team Providers Care Medical Assistant Cardiology Name Role Phone Torin Sandhu MD Primary Care Provider [phone] Encounter Details Date Type Department Care Team (Latest Contact Info) Description 01/23/2001 Outpatient Historical HIS [facility] Mingo Herrera MD [address], [place] [id number] CATARACT NOS (Primary Dx); CHRONIC RHINITIS Social History Tobacco Use Types Packs/Day Years Used Date Smoking Tobacco: Never Assessed Comments Unknown Sex and Gender Information Value Date Recorded Sex Assigned at Not on file Legal Sex Female 4:35 AM GREEN PLUMBER Gender Identity Not on file Sexual Orientation Not on file documented as of this encounter Plan of Treatment Not on file documented as of this encounter Visit Diagnoses Diagnosis Unspecified cataract- Primary Chronic rhinitis documented in this encounter Care Teams Medical Assistant Cardiology Relationship Specialty Start Date End Date Torin Sandhu MD PCP - General 04/10/08 documented as of this encounter
--- OUTSIDE RECORDS SUMMARY | 2024-12-04 12:30 | XMS_ITS | Encounter Summary ---
Author Organization [facility] Address [address] [place] [address] Care Team Providers Care Home Health Clinician Name Role Phone Torin Sandhu MD Primary Care Provider [phone] Encounter Details Date Type Department Care Team (Latest Contact Info) Description 03/11/2003 Outpatient Historical HIS [facility] Mingo Herrera MD [address], [place] [address] Acute nasopharyngitis (Primary Dx) Social History Tobacco Use Types Packs/Day Years Used Date Smoking Tobacco: Never Assessed Comments Unknown Sex and Gender Information Value Date Recorded Sex Assigned at Not on file Legal Sex Female 4:35 AM TILE EDGER Gender Identity Not on file Sexual Orientation Not on file documented as of this encounter Plan of Treatment Not on file documented as of this encounter Visit Diagnoses Diagnosis Acute nasopharyngitis- Primary Acute nasopharyngitis (common cold) documented in this encounter Care Teams Home Health Clinician Relationship Specialty Start Date End Date Torin Sandhu MD PCP - General 04/10/08 documented as of this encounter
--- OUTSIDE RECORDS SUMMARY | 2024-12-04 12:31 | XMS_ITS | Encounter Summary ---
Author Organization [facility] Address [address] [place] [address] Care Team Providers Care Gas Station Service Attendant Name Role Phone Torin Sandhu MD Primary Care Provider Encounter Details Date Type Department Care Team (Latest Contact Info) Description 09/27/2000 Outpatient Historical HIS [facility] Jamal Stevenson MD [address] [place] [address] long-term (current) use of anticoagulants (Primary Dx) Social History Tobacco Use Types Packs/Day Years Used Date Smoking Tobacco: Never Assessed Comments Unknown Sex and Gender Information Value Date Recorded Sex Assigned at Not on file Legal Sex Female 4:35 AM SHEET TESTER Gender Identity Not on file Sexual Orientation Not on file documented as of this encounter Plan of Treatment Not on file documented as of this encounter Visit Diagnoses Diagnosis long-term (current) use of anticoagulants- Primary Long-term (current) use of anticoagulants documented in this encounter Care Teams Gas Station Service Attendant Relationship Specialty Start Date End Date Torin Sandhu MD PCP - General 04/10/08 documented as of this encounter
--- OUTSIDE RECORDS SUMMARY | 2024-12-04 12:31 | XMS_ITS | Encounter Summary ---
Author Organization [facility] Address 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
--- OUTSIDE RECORDS SUMMARY | 2024-12-04 12:31 | XMS_ITS | Encounter Summary ---
Author Organization [facility] Address [address] [place] [address] Care Team Providers Care Fountain Brush Assembler Name Role Phone Torin Sandhu MD Primary Care Provider [phone] Encounter Details Date Type Department Care Team (Latest Contact Info) Description 08/24/2000 Outpatient Historical HIS [facility] Jamal Stevenson MD [address] [place] [address] Edema (Primary Dx); [facility] (current) use of anticoagulants Social History Tobacco Use Types Packs/Day Years Used Date Smoking Tobacco: Never Assessed Comments Unknown Sex and Gender Information Value Date Recorded Sex Assigned at Not on file 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
--- OUTSIDE RECORDS SUMMARY | 2024-12-04 12:31 | XMS_ITS | Encounter Summary ---
Author Organization 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 Social History Tobacco Use Types Packs/Day Years Used Date Smoking Tobacco: Never Assessed Comments Unknown Sex and Gender Information Value Date Recorded Sex Assigned at Not on file 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
--- OUTSIDE RECORDS SUMMARY | 2024-12-04 12:31 | XMS_ITS | Encounter Summary ---
Author Organization [facility] Address [address] [place] [address] Care Team Providers Care Seed Packer Name Role Phone Torin Sandhu MD Primary Care Provider [phone] Encounter Details Date Type Department Care Team (Latest Contact Info) Description 11/07/2000 Outpatient Historical HIS [facility] Jamal Stevenson MD [address] [place] [address] nursing home (current) use of anticoagulants (Primary Dx) Social History Tobacco Use Types Packs/Day Years Used Date Smoking Tobacco: Never Assessed Comments Unknown Sex and Gender Information Value Date Recorded Sex Assigned at Not on file 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
--- OUTSIDE RECORDS SUMMARY | 2024-12-04 12:31 | XMS_ITS | Encounter Summary ---
Author Organization [facility] Address [address] [place] [address] Care Team Providers Care Online Media Director Name Role Phone Torin Sanduh MD Primary Care Provider [phone] Encounter Details Date Type Department Care Team (Latest Contact Info) Description 11/20/2000 Outpatient Historical HIS [facility] Jamal Stevenson MD [address] [place] [address] Nonallopathic lesion of abdomen and other sites, not elsewhere classified (Primary Dx); Disorders of sacrum Social History Tobacco Use Types Packs/Day Years Used Date Smoking Tobacco: Never Assessed Comments Unknown Sex and Gender Information Value Date Recorded Sex Assigned at Not on file 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
--- OUTSIDE RECORDS SUMMARY | 2024-12-04 12:31 | XMS_ITS | Encounter Summary ---
Author Organization [facility] Address [address] [place] [address] Care Team Providers Care Occupational Health Manager Name Role Phone Torin Sandhu MD Primary Care Provider [phone] Encounter Details Date Type Department Care Team (Latest Contact Info) Description 08/09/2000 Outpatient Historical HIS [facility] Jamal Stevenson MD [address] [place] [address] [facility] (current) use of anticoagulants (Primary Dx) Social History Tobacco Use Types Packs/Day Years Used Date Smoking Tobacco: Never Assessed Comments Unknown Sex and Gender Information Value Date Recorded Sex Assigned at Not on file 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
--- NOTE | 2024-12-04 12:33 | CT_ITS ---
WS: [id number] CT HEAD NONCONTRAST HISTORY: difficulty w speech x 1-2 mo TECHNIQUE: Contiguous axial imaging performed through the brain. Bone and soft tissue windows. Sagittal and coronal reformats reviewed. All CT scans at [facility] use at least one of these dose optimization techniques: automated exposure control; mA and/or kV adjustment per patient size (includes targeted exams where dose is matched to clinical indication); or iterative reconstruction. DLP: 1354.37 mGy.cm COMPARISON: 05/27/2024 No acute intracranial hemorrhage, midline shift or mass effect. Mild cerebral atrophy. Minimal small vessel disease. Small lacunar infarct RIGHT internal capsule. Mild cerebellar atrophy. Ventricles: Normal size with no hydrocephalus. Moderate atherosclerotic plaque in the intracranial carotid arteries. Paranasal sinuses: As visualized are clear. Mastoid air cells: Well pneumatized. Calvarium and scalp: Skull is intact with no soft tissue edema or swelling. Incidental note is made of an abnormal LEFT condylar head. Probably from arthropathy. CT/CT head wo con* 51636 IMPRESSION: 1. No acute intracranial hemorrhage. No edema. 2. Mild atrophy and minimal small vessel disease. 3. Dysplastic LEFT mandibular condyle head.
[2024-12-04 12:39] LABS: Hematocrit 32.0 % (36-47); Hemoglobin 9.90 g/dL (11.27-16.99); Mean Corpuscular HGB Conc 30.9 g/dL (30-55); Mean Corpuscular Hemoglobin 32.4 pg (27-33); Mean Corpuscular Volume 104.6 fl (85-98); Nucleated Red Blood Cells % 0 %; Platelet Count 159 10^3/cmm (157-399); Red Blood Count 3.06 10^6/uL (3.85-5.65); White Blood Count 5.23 10^3/uL (3.29-11.43)
--- NOTE | 2024-12-04 12:48 | W.ED.WEAKNES ---
HPI - Weakness General: Chief complaint: Weakness Stated complaint: HTN, Low o2 Time Seen by Provider: 12/04/24 12:21 History of Present Illness: 79-year-old female who presents to the emergency room after a rapid response in the oncology department she has a history of B-cell lymphoma she has some chronic diarrhea she states she will have 2 or 3 loose stools every night this been going on for some time she is equated to foods that she eats. She denies any medic easier melena. She is not currently getting any treatment for her lymphoma. She was at the oncology clinic today for routine follow-up for on observation. Patient is on Xarelto she denies any recent fever sweats or chills had reported hypotension at the doctor's appointment as well. She denies any chest pain at this time generally feels very weak. Associated symptoms: Denies chest pain, chills, dysuria or fever(s) Related Data Home Medications ?Medication ?Instructions ?Recorded ?Confirmed pantoprazole 40 mg tablet,delayed 40 mg PO DAILY 12/07/23 12/04/24 release diclofenac sodium 75 mg 75 mg PO DAILY PRN Pain 12/04/24 12/04/24 tablet,delayed release furosemide 40 mg tablet 40 mg PO DAILY PRN swelling 12/04/24 12/04/24 levothyroxine 125 mcg tablet 125 mcg PO DAILY 12/04/24 12/04/24 lidocaine 5 % topical ointment 1 applic topical DAILY 12/04/24 12/04/24 metoprolol tartrate 25 mg tablet 25 mg PO DAILY 12/04/24 12/04/24 potassium chloride 10 mEq 20 meq PO BID 12/04/24 12/04/24 capsule,extended release rivaroxaban 10 mg tablet (Xarelto) 10 mg PO DAILY 12/04/24 12/04/24 Previous Rx's ?Medication ?Instructions ?Recorded hydrocodone 7.5 mg-acetaminophen 1 tab PO BID PRN pain 30 days #60 06/12/24 325 mg tablet tabs spironolactone 25 mg tablet 25 mg PO DAILY #90 tabs 06/12/24 metoclopramide HCl 10 mg tablet 10 mg PO Q6H PRN nausea and 07/30/24 vomiting #60 tabs cholestyramine (with sugar) 4 gram See Rx Instructions .Route 08/06/24 oral powder .COMPLEX #378 grams promethazine 25 mg tablet 25 mg PO Q8H PRN Nausea #30 tabs 08/08/24 diphenoxylate-atropine 2.5 1 tab PO BID PRN diarrhea 30 days 09/09/24 mg-0.025 mg tablet #60 tabs triamcinolone acetonide 0.1 % 1 applic topical DAILY PRN Skin 09/30/24 topical cream Irritation #80 grams ferrous gluconate 324 mg (37.5 mg 324 mg PO BID #60 tabs 10/01/24 iron) tablet duloxetine 30 mg capsule,delayed 30 mg PO DAILY #30 caps 10/22/24 release pregabalin 150 mg capsule 150 mg PO DAILY #60 caps 10/22/24 Allergies Allergy/AdvReac Type Severity Reaction Status Date / Time clindamycin Allergy chest pain Verified 12/04/24 11:35 Penicillins Allergy rash Verified 12/04/24 11:35 Review of Systems Const: Reports: fatigue and malaise; Denies: fever(s) or chills Card: Denies: chest pain Resp: Denies: dyspnea GI: Denies: abdominal pain : Denies: dysuria, urinary frequency or urinary urgency Musc: Denies: neck pain or back pain Skin/Breast: Denies: rash PFSH ED PFSH: Medical History IBS (irritable bowel syndrome) Hypertension Colitis Hypomagnesemia Normal anion gap metabolic acidosis Diarrhea Dehydration Acute renal failure Hemorrhoids Hypokalemia Diffuse large b-cell lymphoma, lymph nodes of head, face, 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 This occurred last night. On exam today no actual bleeding seen anywhere. Stitch from her vault suspension was again noted today on exam. No granulation tissue was noted on exam. However, due to this intermittent reporting of bleeding, I went ahead and removed the stitch. On removal, the stitch appeared to not be attached to anything other than the vaginal wall. Patient still had a urethral caruncle noted with a small spot adjacent to it which is suspicious for possible bleeding from that area. With her being on the Xarelto, she may have bled from either the caruncle or from the stitch in the vagina. Questions were answered. Follow-up as needed. Surgical History History of endoscopy 08/2022 - Dr. Blanton at [facility]. S/P lumpectomy, right breast (01/27/20) H/O excision of mass H/O colonoscopy 2013 H/O esophagogastroduodenoscopy 2018 History of laparotomy (~1996) left ovarian cystectomy Hx of hysterectomy (~04/08/14) with vaginal repair------- TVH, LSO, Uterosacral ligament suspension, Anterior vaginal repair, Perineorrhaphy, Single incision suburethral sling, Cystoscopy, Lysis of bowel adhesions. 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 Performed by Dr. Remi Musa at [facility] in [place], [place]. Surgical findings: Third degree cystocele, second to third degree uterine prolapse, adhesions of the sigmoid to the left fundal portion of the uterus and to the left ovary, left ovarian cyst present. History of surgery on right wrist (~12/2010) Hx of cholecystectomy (~02/2005) Laparoscopic. Performed by Dr. Blanton at [facility] in [place], [place]. History of bunionectomy (~2001) left H/O ovarian cystectomy (~1996) Left-- Laparotomy Hx of breast biopsy (~1993) 1993-- 1 cyst removed from left breast and 2 cysts removed from right breast. All pathologies were benign. History of tonsillectomy and adenoidectomy (~1951) Family History Grandfather Diabetes Maternal Mother Breast cancer dx at age 45 Denies family history of Colon cancer Ovarian cancer Heart disease Hypercholesteremia Anesthesia complication Bleeding disorder Hypertension Uterine cancer Thyroid disease Stroke Social History Smoking and tobacco/nicotine status: never used tobacco/nicotine Physical Exam Const: GENERAL APPEARANCE: cooperative ORIENTATION/CONSCIOUSNESS: Yes awake, Yes oriented to person, Yes oriented to place and Yes oriented to time HENMT: COMMON NORMALS: normocephalic, atraumatic and hearing grossly normal bilaterally HEAD & SCALP: normocephalic and atraumatic Resp: COMMON NORMALS: normal respiratory effort, No retractions, No use of accessory muscles and clear to auscultation bilaterally AUSCULTATION: clear to auscultation bilaterally Cardio: COMMON NORMALS: regular rate, regular rhythm and No murmurs present (Cardio) RATE: regular rate RHYTHM: regular rhythm GI: COMMON NORMALS: Soft to palpation and No hepatosplenomegaly present AUSCULTATION: Yes normoactive bowel sounds PALPATION: Yes Soft to palpation, No Tenderness to palpation present (GI), No Guarding due to palpation present (GI) and Yes No hepatosplenomegaly present Extremity: COMMON NORMALS: normal to inspection, capillary refill normal, no clubbing, cyanosis or edema, no calf tenderness and no pedal edema Neuro: SENSORIUM/ORIENTATION: Yes oriented to person, Yes oriented to place and Yes oriented to time Skin: COMMON NORMALS: no rashes or lesions noted GENERAL SKIN EXAM: no rashes or lesions noted Course Vital Signs: Vital signs: Vital Signs Temperature 97.6 F 12/09/24 04:00 Pulse Rate 85 12/09/24 04:00 Respiratory Rate 16 12/09/24 04:00 Blood Pressure 123/69 12/09/24 04:00 Pulse Oximetry 97 12/09/24 04:00 Oxygen Delivery Me thod Room Air 12/09/24 04:00 Oxygen Flow Rate 10 12/07/24 11:22 MDM - Weakness Medical Decision Making Patient presents emergency room extremely weak signs of dehydration dry mucous membranes she has difficult time speaking. Her abdomen is somewhat distended urine does show signs of infection CT shows gastric distention no signs of obstruction at this time. No free air no acute pathologic findings. Patient a lactic acid of 4. She was given Rocephin she been cultured and given IV fluid bolus. CT of the head done in the emergency room unremarkable patient while very weak had no focal neurologic deficits no sign of acute CVA. Chest x-ray was unremarkable no acute infiltrates. Patient did have mild acute kidney injury. Orders written for floor. Medical Records I reviewed the patient's medical records. Lab Data I reviewed the patient's lab results. 12/09/24 04:58 12/08/24 02:56 Radiology Impressions Chest X-Ray 12/04/24 12:23 IMPRESSION: Stable chest without acute abnormality. Head CT 12/04/24 12:33 IMPRESSION: 1. No acute intracranial hemorrhage. No edema. 2. Mild atrophy and minimal small vessel disease. 3. Dysplastic LEFT mandibular condyle head. Abdomen/Pelvis CT 12/04/24 15:15 IMPRESSION: Severe gastric distention. Right renal cyst. No urinary tract calculi. Rectal and bladder prolapse with significant urinary bladder distention. No findings of acute hemorrhage or inflammatory process in the abdomen or pelvis. KUB X-Ray 12/06/24 21:00 IMPRESSION: Contrast remains within the stomach. Abdomen X-Ray 12/07/24 04:00 IMPRESSION: 1. Moderate air distension of likely the transverse colon. 2. Radiopaque contrast predominantly within small bowel and possibly a small amount in the ascending colon. No contrast is visualized within the stomach. Venous Duplex 12/08/24 13:15 IMPRESSION: 1. No evidence of deep vein thrombosis. 2. Wall thickening involves the right SFV felt to represent scarring from previous thrombosis Laboratory Results WBC 5.23 10^3/uL (3.29-11.43) 12/04/24 12:29 RBC 3.06 10^6/uL (3.85-5.65) L 12/04/24 12:29 Hgb 9.90 g/dL (11.27-16.99) L 12/04/24 12:29 Hct 32.0 % (36-47) L 12/04/24 12: MCV 104.6 fl (85-98) H 12/04/24 12:29 MCH 32.4 pg (27-33) 12/04/24 12: MCHC 30.9 g/dL (30-55) 12/04/24 12: RDW 15.9 % (12.1-15.1) H 12/04/24 12:29 Plt Count 159 10^3/cmm (157-399) 12/04/24 12:29 MPV 10.0 fL (7.4-10.4) 12/04/24 12: Neut % (Auto) 35.6 % 12/04/24 12: Lymph % (Auto) 43.4 % 12/04/24 12: [place] % (Auto) 8.2 % 12/04/24 12: Eos % (Auto) 12.4 % 12/04/24 12: Baso % (Auto) 0.2 % 12/04/24 12: Neut # (Auto) 1.86 10^3/uL (1.8-7.7) 12/04/24 12: Lymph # (Auto) 2.3 10^3/uL (0.8-4.8) 12/04/24 12: [place] # (Auto) 0.4 10^3/uL (0.2-0.9) 12/04/24 12: Eos # (Auto) 0.7 10^3/uL (0.0-0.8) 12/04/24 12: Baso # (Auto) 0.0 10^3/uL (0.0-0.1) 12/04/24 12: Nucleated RBC % (auto) 0 % 12/04/24 12: Nucleated RBCs # 0.0 /100WBC 12/04/24 12: Sodium 143 mmol/L (136-145) 12/04/24 12: Potassium 5.0 mmol/L (3.5-5.1) 12/04/24 12: Chloride 114 mmol/L (98-107) H 12/04/24 12: Carbon Dioxide 15 mmol/L (22-29) L 12/04/24 12: Anion Gap 19.0 (5-19) 12/04/24 12: BUN 29 mg/dL (8-23) H 12/04/24 12: Creatinine 1.7 mg/dL (0.5-0.9) H 12/04/24 12: GFR Calculation Not Reportable 12/04/24 12: Glucose 171 mg/dL (65-115) H 12/04/24 12: Calculated Osmolality 306 mOsm/kg (285-295) H 12/04/24 12: Lactic Acid 4.1 mmol/L (0.5-2.2) H* 12/04/24 12: Lactic Acid (Sepsis) 2.1 mmol/L (0.5-2.2) 12/04/24 15:22 Calcium 8.1 mg/dL (8.5-10.5) L 12/04/24 12:29 Magnesium 2.0 mg/dL (1.7-2.3) 12/04/24 12: Total Bilirubin 0.2 mg/dL (0.15-1.2) 12/04/24 12: AST 15 U/L (0-32) 12/04/24 12: ALT 11 U/L (0-33) 12/04/24 12: Alkaline Phosphatase 105 U/L (35-105) 12/04/24 12: Troponin T Baseline 19 ng/L (0-10) H 12/04/24 12: Troponin T 120 Minute 15.95 ng/L (0-10) H 12/04/24 14:25 Delta Troponin T -3.05 ABS# (0-10) L 12/04/24 14:25 Total Protein 5.3 g/dL (6.6-8.7) L 12/04/24 12: Albumin 3.1 g/dL (3.5-5.2) L 12/04/24 12: Globulin 2.2 g/dL (1.3-4.6) 12/04/24 12:29 Urine Color Yellow (Yellow) 12/04/24 14:40 Urine Appearance Cloudy (CLEAR) A 12/04/24 14:40 Urine pH 5.0 (5-7) 12/04/24 14:40 Ur Specific [place] 1.016 (1.005-1.030) 12/04/24 14:40 Urine Protein 1+ (Negative) A 12/04/24 14:40 Urine Glucose (UA) Negative (Normal) 12/04/24 14:40 Urine Ketones Trace (Negative) 12/04/24 14:40 Urine Blood 3+ (Negative) A 12/04/24 14:40 Urine Nitrate Negative (Negative) 12/04/24 14:40 Urine Bilirubin Negative (Negative) 12/04/24 14:40 Urine Urobilinogen 1.0 mg/dL (Negative) 12/04/24 14:40 Ur Leukocyte Esterase 2+ (Negative) A 12/04/24 14:40 Urine RBC 40-50 /hpf (0-2) H 12/04/24 14:40 Urine WBC 15-25 /hpf (0-5) H 12/04/24 14:40 Ur Squamous Epith Cells 0-4 /hpf (0-5) H 12/04/24 14:40 Amorphous Sediment Not Reportable 12/04/24 14:40 Urine Bacteria Trace /hpf (NONE) 12/04/24 14:40 Hyaline Casts 5-10 /lpf H 12/04/24 14:40 All radiology interpretation(s) finalized by discharge EKG Data EKG 1: Interpretation: EKG 12/04/2024 12:24 PM sinus tachycardia rate 103. 145 [address] changes noted. Compared to EKG 06/19/2024 EKG 2: Interpretation: EKG 12/04/2024 1439. Sinus tachycardia rate 105 parable 121 QTc 439. EKG done earlier today no significant changes. Discharge Plan Discharge Patient Disposition: Admitted As Inpatient Admit Provider: Leonie Perez Clinical Impression: Sepsis, History of lymphoma, Cystitis, Rectal prolapse, History of breast cancer, Acute kidney injury Condition: Stable Coding Level of Care Code ED [facility] Magistrate for [facility]
[2024-12-04 13:06] LABS: Troponin(5th) Baseline 19 ng/L (0-10)
[2024-12-04 13:08] LABS: Alanine Aminotransferase 11 U/L (0-33); Albumin Level 3.1 g/dL (3.5-5.2); Alkaline Phosphatase 105 U/L (35-105); Anion Gap 19.0 (5-19); Aspartate Amino Transferase 15 U/L (0-32); Blood Urea Nitrogen 29 mg/dL (8-23); Calcium 8.1 mg/dL (8.5-10.5); Carbon Dioxide 15 mmol/L (22-29); Chloride 114 mmol/L (98-107); Creatinine Clr Calc Pharmacy 24.2951; Globulin 2.2 g/dL (1.3-4.6); Glucose 171 mg/dL (65-115); Magnesium 2.0 mg/dL (1.7-2.3); Osmolality Calculated 306 mOsm/kg (285-295); Potassium 5.0 mmol/L (3.5-5.1); Sodium 143 mmol/L (136-145); Total Protein 5.3 g/dL (6.6-8.7)
[2024-12-04 13:10] LABS: Lactic Sepsis W/Reflex 4.1 mmol/L (0.5-2.2)
[2024-12-04] MEDS: cefTRIAXone 1,000 mg SDV 1000 MG IVP (13:31)
[2024-12-04 14:23] LABS: Reflex Lactate Order REFLEX LACTIC ORDERD
--- NOTE | 2024-12-04 14:23 | ECG_ITS ---
[employer] Test Date: 2024-12-04 Pat Name: Lexy Chawla Department: Room: Gender: Female Roast Master: : 1945 Requested By: Lee Aguilar Order Number: [id number] Zoya MD: Mack Gudino M.D. Measurements Intervals [place] Rate: 105 P: 83 W[place]: 121 QRS: -70 QRSD: 80 T: 73 QT: 331 QTc: 439 Interpretive Statements SINUS TACHYCARDIA INDETERMINATE AXIS LOW QRS VOLTAGE [QRS DEFLECTION < 0.5/1.0 mV IN LIMB/CHEST LEADS] POSSIBLE ANTERIOR MYOCARDIAL INFARCTION , PROBABLY OLD [30 ms Q WAVE IN V3/V4, OR R < 0.2 mV IN V4] INFERIOR MYOCARDIAL INFARCTION , PROBABLY OLD [40+ ms Q WAVE AND/OR ST/T ABNORMALITY IN II/aVF] Compared to ECG 12/04/2024 12:24:33 No significant changes Electronically Signed On 12-05-2024 08:56:09 CDT by Mack Gudino M.D. [email or web address]
[2024-12-04 14:46] LABS: Glucose Urine UA Negative (Normal); Nitrate Urine Negative (Negative); Specific Gravity, Urine 1.016 (1.005-1.030)
--- NOTE | 2024-12-04 14:46 | PC.PHAR ---
Pt has Spironolactone 25mg daily 10/30/24 90ds and Metoprolol Tartrate 25mg daily 10/28/24 90ds. Spouse states pt is not taking, pt nods head she does take. Verified with Bill in pharmacy-pt did pick these medications up. Wrote the names on a sticky note and gave to spouse for checking bottles at home. Pt should be taking these medications.
[2024-12-04 14:55] LABS: Troponin 5 2HR 15.95 ng/L (0-10)
[2024-12-04 14:58] LABS: Troponin 5 2HR Delta -3.05 ABS# (0-10)
[2024-12-04 15:07] LABS: Add Urine Microscopic? YES; UA Manual Slide Review YES
--- NOTE | 2024-12-04 15:15 | CT_ITS ---
WS: [id number] CT kidney stone [id number] REASON FOR EXAM: flank pain IV CONTRAST ADMINISTERED: None. TECHNIQUE: Multiple axial images without intravenous contrast enhancement. Coronal and sagittal reconstructions. COMPARISON EXAMINATION: Unenhanced CT scan of the abdomen and pelvis 05/29/2024 TOTAL EXAM DLP: 342.[address] scans at [facility] use at least one of these dose optimization techniques: automated exposure control; mA and/or kV adjustment per patient size (includes targeted exams where dose is matched to clinical indication); or iterative reconstruction. FINDINGS: ABDOMEN: Previous subcutaneous edema, mesenteric edema, and ascites 05/29/2024 have resolved. Gross gastric distention. Unenhanced liver unremarkable. Status post cholecystectomy. Atrophic pancreas. Normal spleen. Normal adrenals. No intrarenal calculi bilaterally. No abdominal ureteral calculi. Extremely large right renal cyst extending from the right renal hilus, which is unchanged compared to the previous examination. No abdominal mass or adenopathy. No free fluid or focal fluid collection. Vena cava filter with 2 limbs eroded into the retroperitoneal fat no change compared to the previous examination. Significant distention of the transverse colon. Dense radial opacities in the cecal bascule, presumed medication. PELVIS: Significant distention of the urinary bladder. No distal ureteral calculi or bladder calculi. Pelvic prolapse of the urinary bladder and rectum. Seen on the previous examination. No focal bony abnormality of the lumbar spine or pelvis. CT/CT kidney stone [id number] IMPRESSION: Severe gastric distention. Right renal cyst. No urinary tract calculi. Rectal and bladder prolapse with significant urinary bladder distention. No findings of acute hemorrhage or inflammatory process in the abdomen or pelvi s.
[2024-12-04 15:58] LABS: Lactic Acid level (Lactate) 2.1 mmol/L (0.5-2.2)
--- NOTE | 2024-12-04 17:20 | PM.HP ---
Providers/Chief Complaint Admitting Physician: LEONIE PEREZ DO Primary Care Provider: Torin Sandhu MD Chief Complaint: HTN, Low o2 History of Present Illness Lexy Chawla is a 79 year old female with medical history significant for lymphoma 6 years ago status post chemotherapy treatment without recurrence but with much bone marrow suppression, history of stage I right right breast cancer 3 years ago treated with radiation without lumpectomy with that mastectomy and with no recurrence at this time. And it was because of these 2 cancers patient goes to cancer center for follow-up every 6 months at least because of the breast cancer history. Patient for many years have been having diarrhea every other day and claimed that nobody had been able to say what why. At the same time he had been in the system the patient has irritable bowel syndrome. Patient and the at the bedside related to me that this patient had lost 20 pounds within the past 2 months. He has no appetite and does not eat at all. The gives him some Ensure or any protein shake. They do not have supportive health care at home. In the setting of ongoing diarrhea chronically not eating that is enough for this level of weight loss. Weight loss in the setting of no actual existing malignancy at this time and in a patient that is being followed up every 6 months just by oncology plus being seen by the primary care doctor as well Patient got hypotensive because of severe dehydration and has significant hyperchloremia with noted none anion gap metabolic acidosis with a bicarb of 15. Patient had mild pyuria not significant in a inguinal competent patient bed for a patient in this setting this might be significant for that reason ED had given IV antibiotics I will follow through also to continue with the ceftriaxone for now. Patient does have significant microscopic hematuria. Review of Systems Narrative: System review were significant for myalgia and generalized muscle weakness otherwise unremarkable Medications/Allergies Home Medications ?Medication ?Instructions ?Recorded ?Confirmed ?Last Taken ?Type pantoprazole 40 mg tablet,delayed 40 mg PO DAILY 12/07/23 12/04/24 12/03/24 History release hydrocodone 7.5 mg-acetaminophen 1 tab PO BID PRN pain 30 days #60 06/12/24 12/04/24 Unknown Rx 325 mg tablet tabs spironolactone 25 mg tablet 25 mg PO DAILY #90 tabs 06/12/24 12/04/24 06/18/24 Rx metoclopramide HCl 10 mg tablet 10 mg PO Q6H PRN nausea and 07/30/24 12/04/24 Unknown Rx vomiting #60 tabs cholestyramine (with sugar) 4 gram See Rx Instructions .Route 08/06/24 12/04/24 Unknown Rx oral powder .COMPLEX #378 grams promethazine 25 mg tablet 25 mg PO Q8H PRN Nausea #30 tabs 08/08/24 12/04/24 Unknown Rx diphenoxylate-atropine 2.5 1 tab PO BID PRN diarrhea 30 days 09/09/24 12/04/24 Unknown Rx mg-0.025 mg tablet #60 tabs triamcinolone acetonide 0.1 % 1 applic topical DAILY PRN Skin 09/30/24 12/04/24 Unknown Rx topical cream Irritation #80 grams ferrous gluconate 324 mg (37.5 mg 324 mg PO BID #60 tabs 10/01/24 12/04/24 12/03/24 Rx iron) tablet duloxetine 30 mg capsule,delayed 30 mg PO DAILY #30 caps 10/22/24 12/04/24 12/03/24 Rx release pregabalin 150 mg capsule 150 mg PO DAILY #60 caps 10/22/24 12/04/24 12/03/24 Rx diclofenac sodium 75 mg 75 mg PO DAILY PRN Pain 12/04/24 12/04/24 Unknown History tablet,delayed release furosemide 40 mg tablet 40 mg PO DAILY PRN swelling 12/04/24 12/04/24 Unknown History levothyroxine 125 mcg tablet 125 mcg PO DAILY 12/04/24 12/04/24 12/03/24 History lidocaine 5 % topical ointment 1 applic topical DAILY 12/04/24 12/04/24 12/03/24 History metoprolol tartrate 25 mg tablet 25 mg PO DAILY 12/04/24 12/04/24 12/03/24 History potassium chloride 10 mEq 20 meq PO BID 12/04/24 12/04/24 12/03/24 History capsule,extended release rivaroxaban 10 mg tablet (Xarelto) 10 mg PO DAILY 12/04/24 12/04/24 12/03/24 History Allergies Allergy/AdvReac Type Severity Reaction Status Date / Time clindamycin Allergy chest pain Verified 12/04/24 11:35 Penicillins Allergy rash Verified 12/04/24 11:35 PFSH Acute PFSH: Medical History IBS (irritable bowel syndrome) Hypertension Colitis Hypomagnesemia Normal anion gap metabolic acidosis Diarrhea Dehydration Acute renal failure Hemorrhoids Hypokalemia Diffuse large b-cell lymphoma, lymph nodes of head, face, 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 This occurred last night. On exam today no actual bleeding seen anywhere. Stitch from her vault suspension was again noted today on exam. No granulation tissue was noted on exam. However, due to this intermittent reporting of bleeding, I went ahead and removed the stitch. On removal, the stitch appeared to not be attached to anything other than the vaginal wall. Patient still had a urethral caruncle noted with a small spot adjacent to it which is suspicious for possible bleeding from that area. With her being on the Xarelto, she may have bled from either the caruncle or from the stitch in the vagina. Questions were answered. Follow-up as needed. Surgical History History of endoscopy 08/2022 - Dr. Blanton at [facility]. S/P lumpectomy, right breast (01/27/20) H/O excision of mass H/O colonoscopy 2013 H/O esophagogastroduodenoscopy 2019 History of laparotomy (~1996) left ovarian cystectomy Hx of hysterectomy (~04/08/14) with vaginal repair------- TVH, LSO, Uterosacral ligament suspension, Anterior vaginal repair, Perineorrhaphy, Single incision suburethral sling, Cystoscopy, Lysis of bowel adhesions. 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 Performed by Dr. Remi Musa at [facility] in [place], [place]. Surgical findings: Third degree cystocele, second to third degree uterine prolapse, adhesions of the sigmoid to the left fundal portion of the uterus and to the left ovary, left ovarian cyst present. History of surgery on right wrist (~12/2010) Hx of cholecystectomy (~02/2005) Laparoscopic. Performed by Dr. Blanton at [facility] in [place], [place]. History of bunionectomy (~2001) left H/O ovarian cystectomy (~1996) Left-- Laparotomy Hx of breast biopsy (~1993) 1993-- 1 cyst removed from left breast and 2 cysts removed from right breast. All pathologies were benign. History of tonsillectomy and adenoidectomy (~1951) Family History Grandfather Diabetes Maternal Mother Breast cancer dx at age 45 Denies family history of Colon cancer Ovarian cancer Heart disease Hypercholesteremia Anesthesia complication Bleeding disorder Hypertension Uterine cancer Thyroid disease Stroke Social History Smoking and tobacco/nicotine status: never used tobacco/nicotine Vitals/I&O/Wt Last Vital Signs Temp 98.1 F 12/04/24 12:21 Pulse 96 12/04/24 15:46 Resp 18 12/04/24 12:21 BP 104/66 12/04/24 15:46 Pulse Ox 96 12/04/24 15:46 O2 Del Method Room Air 12/04/24 15:46 12/04/24 12/04/24 12/04/24 06:59 14:59 22:59 Intake Total 1632 / 1632 Balance 1632 / 1632 Weight last 48 hrs Weight 54.431 kg Physical Exam Narrative: Patient is lying flat in bed weak able to verbalize but the mucous membrane of the marked sticks together to we are the speech consult somewhat muffled because of profound dehydration. Mucous membranes very dry HEENT normocephalic atraumatic neck neck is supple cardiovascular heart rate is regular lungs are clear abdomen soft nontender nondistended unremarkable extremities are intact no edema has good pulses neurology has no focality lab studies lab studies reviewed and noted. Data 12/04/24 12:29 12/04/24 12:29 Micro: Microbiology 12/04/24 13:00 Blood Culture - Preliminary Blood SPECIMEN COLLECTED 12/04/24 13:04 Blood Culture - Preliminary Blood SPECIMEN COLLECTED A&P Assessment and plan 1. Severe dehydration: 2. Hypotension due to hypovolemia: 3. Acute prerenal azotemia: 4. Acidosis, hyperchloremic: 5. IBS (irritable bowel syndrome): 6. Weight loss, unintentional: 7. Weakness generalized: 8. History of lymphoma: 9. History of right breast cancer: Plan: Near syncopal event with profound weakness - Admit to stepdown unit - Patient is with severe prerenal azotemia significant for dehydration with elevated hyaline cast and osmolarity - Patient received sepsis fluid volume at 1.6 L in the emergency room - Continue with 100 mL/h patient weighs 54.4 kg with a BMI of 19 - Patient has fluid losses in form of diarrhea every other day for the past few years - Patient has lack of oral intake, not eating with significant anorexia patient concurred with the - Pancultured from blood and urine - Patient is immunosuppressed with mild pyuria it is worth treating for UTI - Echocardiogram ordered with carotic Doppler ultrasound - Patient responded to IV fluid and appropriate for stepdown unit Acute renal failure - Patient is losing fluids via diarrhea and also not drinking and not eating - Do not believe patient is actually acute on chronic in the setting of ongoing volume contraction - Must obtain ultrasound of the kidney to evaluate for any medical renal disease if the kidney is of normal size Then that we will prove normal kidney - Continue gentle hydration at this time and interval lab studies as ordered Generalized myopathy - I have ordered PT OT and also case management to be on this case for discharge planning - This patient will need PT OT and clinical nurse visit at home on the home health at the time of discharge - Patient has a good support system and the and will do well and better at home with home health If patient graduates from home health patient may do well with outpatient physical therapy if need be Chronic diarrhea, patient does not know anything about irritable bowel syndrome that is in the system for her - Must get stool sample to run studies for infection and others for malabsorption syndrome - Patient need to see a GI for workup. Patient is up-to-date for colonoscopy and also had had endoscopy in the few couple of years History of lymphoma and right breast cancer - No recurrence and patient is under surveillance with cancer center GI and DVT prophylaxis in place PDMP PDMP Reviewed: Last Reviewed 12/04/24 17:29 by Leonie Perez MD Attestations Medical Necessity Statement*: Patient with profound weakness, hypotensive, near syncopal event, acute renal failure, urinary tract infection, meets inpatient criteria for a 79 years old. Patient is 2 midnights to optimize care at least Coding Level of Care Code 11082 Diagnoses Severe dehydration E86.0 Hypotension due to hypovolemia E86.1 Acute prerenal azotemia N19 Acidosis, hyperchloremic E87.29 IBS (irritable bowel syndrome) K58.9 Weight loss, unintentional R63.4 Weakness generalized R53.1 History of lymphoma Z85.72 History of right breast cancer Z85.3 Time Spent (min) 70
[2024-12-04] MEDS: heparin 5,000 unit/mL INJ 1 mL 5000 UNIT SUBCUT (18:04)
--- NOTE | 2024-12-04 18:20 | ECG_ITS ---
[employer] Test Date: 2024-12-04 Pat Name: Lexy Chawla Department: Room: Gender: Female Registered Associate: : 1945 Requested By: Lee Aguilar Order Number: [id number] Zoya MD: Mack Gudino M.D. Measurements Intervals [place] Rate: 108 P: 79 OK: 148 QRS: -46 QRSD: 82 T: 30 QT: 349 QTc: 469 Interpretive Statements SINUS TACHYCARDIA WITH OCCASIONAL VENTRICULAR PREMATURE COMPLEXES INDETERMINATE AXIS LOW QRS VOLTAGE IN PRECORDIAL LEADS [QRS DEFLECTION < 1.0 mV IN CHEST LEADS] POSSIBLE ANTERIOR MYOCARDIAL INFARCTION , PROBABLY OLD [30 ms Q WAVE IN V3/V4, OR R < 0.2 mV IN V4] POSSIBLE INFERIOR MYOCARDIAL INFARCTION , PROBABLY OLD [30 ms Q WAVE IN II/aVF] Compared to ECG 12/04/2024 14:39:38 Ventricular premature complex(es) now present Myocardial infarct finding still present Electronically Signed On 12-05-2024 08:51:47 CDT by Mack Gudino M.D. [email or web address]
[2024-12-04 18:46] LABS: Troponin 5 6HR 14.83 ng/L (0-10)
[2024-12-04 18:53] LABS: Troponin 5 6HR Delta -4.17 ng/L (0-12)
[2024-12-05 04:00] VITALS: BP 118/69; PULSE 104; RESP 18; TEMP 36.5; O2SAT 95
[2024-12-05] MEDS: heparin 5,000 unit/mL INJ 1 mL 5000 UNIT SUBCUT ×2 (04:32→17:19)
[2024-12-05 04:46] LABS: Hematocrit 26.2 % (36-47); Hemoglobin 8.00 g/dL (11.27-16.99); Mean Corpuscular HGB Conc 30.5 g/dL (30-55); Mean Corpuscular Hemoglobin 32.5 pg (27-33); Mean Corpuscular Volume 106.5 fl (85-98); Nucleated Red Blood Cells % 0 %; Platelet Count 116 10^3/cmm (157-399); Red Blood Count 2.46 10^6/uL (3.85-5.65); White Blood Count 4.84 10^3/uL (3.29-11.43)
[2024-12-05 05:14] LABS: Alanine Aminotransferase 10 U/L (0-33); Albumin Level 2.4 g/dL (3.5-5.2); Alkaline Phosphatase 92 U/L (35-105); Blood Urea Nitrogen 23 mg/dL (8-23); Calcium 7.2 mg/dL (8.5-10.5); Carbon Dioxide 14 mmol/L (22-29); Chloride 120 mmol/L (98-107); Creatinine Clr Calc Pharmacy 38.0741; Globulin 2.1 g/dL (1.3-4.6); Glucose 89 mg/dL (65-115); Magnesium 1.8 mg/dL (1.7-2.3); Osmolality Calculated 299 mOsm/kg (285-295); Sodium 143 mmol/L (136-145); Total Protein 4.5 g/dL (6.6-8.7)
[2024-12-05 05:21] LABS: Anion Gap 13.8 (5-19); Aspartate Amino Transferase 19 U/L (0-32); Potassium 4.8 mmol/L (3.5-5.1)
[2024-12-05 07:27] VITALS: BP 111/69; PULSE 102; RESP 16; TEMP 36.5; O2SAT 99
[2024-12-05] MEDS: multivitamin therapeutic Tablet 1 TAB PO (11:07)
[2024-12-05] MEDS: cefTRIAXone 1,000 mg SDV 1000 MG IVP (11:07)
[2024-12-05 11:27] VITALS: BP 115/70; PULSE 105; RESP 17; TEMP 36.8; O2SAT 94
[2024-12-05 15:34] VITALS: BP 107/65; PULSE 108; RESP 18; TEMP 36.9; O2SAT 94
--- NOTE | 2024-12-05 17:11 | USCV_ITS ---
Lexy Chawla Age: 79 Gender: F : 1945 Exam Date: 12/05/2024 08:56 Ordering Phys: Leonie Perez MD Technologist: Exam Location: [facility] [place] Indication: sp sob BP: 120 / 70 HR: 93 Rhythm: Sinus Technical Quality: Adequate MEASUREMENTS (Male / Female) Normal Values 2D ECHO LV Diastolic Diameter PLAX 5.0 cm 4.2 - 5.9 / 3.9 - 5.3 cm IVS Diastolic Thickness 1.2 cm 0.6 - 1.0 / 0.6 - 0.9 cm IVS Systolic Thickness 1.7 cm LVPW Diastolic Thickness 1.3 cm 0.6 - 1.0 / 0.6 - 0.9 cm LVPW Systolic Thickness 1.5 cm LVOT Diameter 2.3 cm LV Ejection Fraction 2D Teich 69.1 % LV Ejection Fraction MOD 4C 65.7 % LV Ejection Fraction MOD 2C 64.9 % LV Ejection Fraction 2C AL 65.3 % LA Diameter 3.4 cm RA Systolic Volume 4C AL 27.9 ml RA Systolic Volume 4C MOD 26.8 ml LA Sys Volume AL 38.2 cm cubed LA Sys Volume Index AL 24.1 cm cubed/m squared Aorta at Sinotubular Diameter 3.3 cm DOPPLER AV Peak Velocity 145.0 cm/s LVOT Peak Velocity 90.0 cm/s AV Area Cont Eq vti 2.8 cm squared AV Area Cont Eq pk 2.6 cm squared MV Peak Velocity 88.0 cm/s MV Area PHT 5.1 cm squared Mitral E to A Ratio 1.0 TV Peak Velocity 223.0 cm/s TR Peak Velocity 260.0 cm/s TR Peak Gradient 27.0 mmHg TV Peak E Velocity 87.0 cm/s PV Peak Velocity 133.0 cm/s FINDINGS Left Ventricle Normal left ventricular size and systolic function, EF 60-65%. No regional wall motion abnormalities. Right Ventricle Normal in size and function Right Atrium Normal in size Left Atrium Normal in size IA Septum Grossly normal Mitral Valve Structurally normal mitral valve. Trace mitral regurgitation. Aortic Valve Thickened aortic valve. No significant stenosis or regurgitation. Tricuspid Valve Mild tricuspid regurgitation. Pulmonary artery systolic pressure is normal. Pulmonic Valve Not well visualized Pericardium Normal Aorta Normal in size IVC Grossly normal CONCLUSIONS LV systolic function is normal with EF of 60-65% Trace mitral regurgitation Mild tricuspid regurgitation. Mack Gudino MD (Electronically Signed) Final Date: 07 December 2024 09:56 S
--- NOTE | 2024-12-05 19:28 | P.PN_ITS ---
Subjective 2 Subjective: Patient is doing well in no apparent distress actually look quite rehydrated. Actually had not had any further diarrhea since yesterday on admission. Patient also had eaten some meal up to 75% per report will hope that this continues Vitals/I&O/Wt Last Vital Signs Temp 98.4 F 12/05/24 15:34 Pulse 108 H 12/05/24 15:34 Resp 18 12/05/24 15:34 BP 107/65 12/05/24 15:34 Pulse Ox 94 12/05/24 15:34 O2 Del Method Room Air 12/05/24 15:34 12/05/24 12/05/24 12/05/24 06:59 14:59 22:59 Intake Total 1060 / 2692 1011.667 / 6677.291 5695 / 2071.667 Output Total 200 / 200 300 / 300 Balance 860 / 2492 711.667 / 201.151 8951 / 1771.667 Weight last 48 hrs Weight 56.444 kg Weight 56.699 kg Weight 54.431 kg Physical Exam 2 Narrative: Patient looks well not ill-appearing hydrated mucous membrane pretty much moist today. Patient is getting gentle hydration. HEENT normocephalic/atraumatic neck neck is supple cardiovascular heart rate is regular lungs are pretty much clear abdomen soft nontender nondistended unremarkable extremities are intact no edema has good pulses neurology no focality lab studies lab studies reviewed and noted. Patient does have hypoxic chloremia and low bicarb may have to do a half-normal saline gently to resolve the acidosis from normal saline. Data 12/05/24 04:28 12/05/24 04:28 Micro: Microbiology 12/04/24 13:04 Blood Culture - Preliminary Blood NEGATIVE TO DATE 12/04/24 13:00 Blood Culture - Preliminary Blood NEGATIVE TO DATE 12/04/24 14:40 Urine Culture - Preliminary Urine,Clean Catch Strep species, gamma-hemolytic A&P Assessment and plan 1. Weakness generalized: 2. Weight loss, unintentional: 3. History of right breast cancer: 4. History of lymphoma: 5. Acidosis, hyperchloremic: 6. Acute prerenal azotemia: 7. Hypotension due to hypovolemia: 8. 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 - PT OT following Severe diarrhea - Culture orders have been placed. Patient had not produced any further stool since admission - Must continue to follow through and optimize Patient with history of lymphoma/breast cancer 6 years and 3 years respectively - Treated with no recurrence - Patient however had much bone marrow suppression and recovering PDMP PDMP Reviewed: Last Reviewed 12/05/24 19:47 by Leonie Perez MD Attestations 2 Medical Necessity Statement*: Patient with myopathy that is very generalized optimizing at this time will need a couple of days for further optimization of care for a safer discharge. Patient to go home with home health. Coding Level of Care Code 51775 Diagnoses Weakness generalized R53.1 Weight loss, unintentional R63.4 History of right breast cancer Z85.3 History of lymphoma Z85.72 Acidosis, hyperchloremic E87.29 Acute prerenal azotemia N19 Hypotension due to hypovolemia E86.1 Severe dehydration E86.0 Time Spent (min) 45
[2024-12-05 20:00] VITALS: BP 113/70; PULSE 108; RESP 13; TEMP 37.3; O2SAT 96
[2024-12-05] MEDS: ondansetron 2 mg/ML SDV 2 mL 4 MG IVP (20:15)
[2024-12-06] VITALS (7 sets, daily range): BP systolic 85–131; BP diastolic 46–80; PULSE 97–128; RESP 15–20; TEMP 36.8–38; O2SAT 94–99
[2024-12-06] MEDS: heparin 5,000 unit/mL INJ 1 mL 5000 UNIT SUBCUT ×2 (04:55→17:15)
[2024-12-06] MEDS: multivitamin therapeutic Tablet 1 TAB PO (04:55)
[2024-12-06 05:22] LABS: Alanine Aminotransferase 12 U/L (0-33); Albumin Level 2.2 g/dL (3.5-5.2); Alkaline Phosphatase 91 U/L (35-105); Anion Gap 14.1 (5-19); Aspartate Amino Transferase 19 U/L (0-32); Blood Urea Nitrogen 17 mg/dL (8-23); Calcium 7.2 mg/dL (8.5-10.5); Carbon Dioxide 13 mmol/L (22-29); Chloride 119 mmol/L (98-107); Creatinine Clr Calc Pharmacy 41.8815; Globulin 1.7 g/dL (1.3-4.6); Glucose 94 mg/dL (65-115); Magnesium 1.6 mg/dL (1.7-2.3); Osmolality Calculated 295 mOsm/kg (285-295); Potassium 4.1 mmol/L (3.5-5.1); Sodium 142 mmol/L (136-145); Total Protein 3.9 g/dL (6.6-8.7)
[2024-12-06] MEDS: cefTRIAXone 1,000 mg SDV 1000 MG IVP (12:47)
--- NOTE | 2024-12-06 14:14 | XR_ITS ---
WS: [id number] XR abdomen 1V* [id number] REASON FOR EXAM: suspected gastric outlet obstruction FINDINGS: No significant gaseous distention of the stomach is identified. There is a vague mass density in the left upper quadrant which likely represents the distended fluid-filled stomach seen on the CT scan of 12/04/2024. The distended right right, splenic flexure, and proximal transverse colon is similar to the turf and grounds supervisor film of the CT scan of 12/04/2024. No free air or retroperitoneal air. Note: A Gastrografin upper GI is been ordered. It is recommended that a nasogastric tube be placed in the stomach and the contents aspirated and the Gastrografin study performed through the nasogastric tube. XR/XR abdomen 1V* [id number] IMPRESSION: Presumed distended fluid-filled stomach as above.
[2024-12-06] MEDS: metoclopramide 5 mg/mL SDV 2 mL IVP ×2 (15:10→20:54)
[2024-12-06] MEDS: diatrizoate meglumine 120 mL Sol PO (16:47)
--- NOTE | 2024-12-06 17:59 | P.PN_ITS ---
Subjective 2 Subjective: Patient had 1 episode of vomiting this morning. Clear mucus Medications: Reviewed: Yes Vitals/I&O/Wt Last Vital Signs Temp 98.5 F 12/06/24 16:00 Pulse 109 H 12/06/24 16:00 Resp 18 12/06/24 16:00 BP 131/80 12/06/24 16:00 Pulse Ox 98 12/06/24 16:00 O2 Del Method Room Air 12/06/24 16:00 12/06/24 12/06/24 12/06/24 06:59 14:59 22:59 Intake Total 200 / 2471.667 1070 / 1070 Output Total 400 / 400 Balance 200 / 2171.667 670 / 670 Weight last 48 hrs Weight 56.245 kg Weight 56.444 kg Weight 56.699 kg Physical Exam 2 Narrative: General: No acute distress, AO x3 HEENT: PERRLA, pupils bilaterally equal and reactive, pallors not present Chest: Normal vesicular breath sounds, no added sounds, equal good air entry bilaterally CVS: S1-S2 regular, no murmurs, no tachycardia, no gallops, no rubs Abdomen: Soft, nontender, no organomegaly, bowel sounds present Neuro: No focal deficits, no facial deformity, AO x3, power 5/5 in all limbs Data 12/05/24 04:28 12/06/24 04:41 Micro: Microbiology 12/04/24 14:40 Urine Culture - Preliminary Urine,Clean Catch Strep species, gamma-hemolytic 12/04/24 13:04 Blood Culture - Preliminary Blood NEGATIVE TO DATE 12/04/24 13:00 Blood Culture - Preliminary Blood NEGATIVE TO DATE A&P Assessment and plan 1. Weakness generalized: 2. Weight loss, unintentional: 3. History of right breast cancer: 4. History of lymphoma: 5. Acidosis, hyperchloremic: 6. Acute prerenal azotemia: 7. Hypotension due to hypovolemia: 8. 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 - PT OT following Severe diarrhea - Culture orders have been placed. Patient had not produced any further stool since admission - Must continue to follow through and optimize Patient with history of lymphoma/breast cancer 6 years and 3 years respectively - Treated with no recurrence - Patient however had much bone marrow suppression and recovering December 06, 2024 79-year-old lady with a past medical history of lymphoma, currently in remission, treated 6 years ago with chemotherapy. History of breast cancer treated with radiation to the right breast, 2 years ago. As of most recent oncology evaluation, she is in remission with regards to both cancers. She is noted to be malnourished with a low albumin and reported 20 pound weight loss over the last 2 months. Patient has a history of chronic diarrhea dating back several months to years. Her diarrhea frequency has not recently changed. She has tried an elimination diet and gotten rid of all lactose products without any significant change in her symptoms. She has had a colonoscopy at our center in January 2024 without any obvious abnormalities except for diverticulosis. She reports having had an endoscopy remotely but does not remember the results of it. Patient reports dysphagia where she feels a sensation of food sticking, loss of appetite, inability to consume more than 10 to 20% of her meals dating back over several months. There is no history of C. difficile. Currently has not had a bowel movement in 2 days. She has not had an evaluation with gastroenterology for the symptoms yet. CT of the abdomen and pelvis obtained upon admission had shown severe gastric distention. There was additionally noted to be distention of the transverse colon with dense radiopacities in the cecal bascule presumed medication. Comparing to prior CAT scan from May 2024, the gastric distention appears to be new. Colonic distention was noted on previous CTs as well. On her CT from May 2024 note was made of an incidental soft tissue density adjacent to the pancreatic head. This was not seen on CT from December 04, 2024. Ordered for an upper abdomen GI series with small bowel follow-through today to assess for any gastric outlet obstruction which may be potentially an explanation for her symptoms. May need an endoscopy evaluation and gastric emptying study as the next steps. Consult general surgery. Add Reglan 5 mg IV every 6 hours. Upon admission patient had signs of severe dehydration, she has been on IV fluid normal saline at 75 cc an hour. Her rapid response was called on the day of admission due to hypotension. Orthostatics checked earlier this morning revealed a baseline blood pressure of 108/70 with orthostatic drop to 85/46 upon standing. Heart rate up from 97-1 28 upon standing. Positive orthostatic vital signs. Add midodrine 5 mg 3 times daily. Will follow with results of upper GI series. No known history of diabetes mellitus. Last echocardiogram reviewed from May 2024 with small pericardial effusion. Repeat echocardiogram has been taken on this current admission, results are pending at this time. PDMP PDMP Reviewed: Not Reviewed Attestations 2 Medical Necessity Statement*: Suspected gastric outlet obstruction. Upper GI series today. Possible endoscopic evaluation Coding Level of Care Code Acute Code for Chg Fwd Diagnoses Weakness generalized R53.1 Weight loss, unintentional R63.4 History of right breast cancer Z85.3 History of lymphoma Z85.72 Acidosis, hyperchloremic E87.29 Acute prerenal azotemia N19 Hypotension due to hypovolemia E86.1 Severe dehydration E86.0
--- NOTE | 2024-12-06 18:00 | XRR_ITS ---
PROCEDURE INFORMATION: Exam: XR Abdomen Exam date and time: 12/06/2024 6:02 PM Age: 79 years old Clinical indication: Nausea; Prior surgery; Surgery date: 6+ months; Surgery type: Hysterectomy, cholecystectomy, RT lumpectomy; Additional info: Suspected gastric outlet obstruction; 2hr film, 120ml oral administration of gastrograffin @ 1600; Followup 2hr film @ 1800 TECHNIQUE: Imaging protocol: Radiologic exam of the abdomen. Views: Frontal supine view of the abdomen. 1 View. COMPARISON: CR XR abdomen 1V* [id number] 12/06/2024 3:26 PM FINDINGS: Gastrointestinal tract: Stable colonic distension. Oral contrast is identified within the stomach. No contrast is identified distal to the stomach. Bones/joints: Unremarkable. XR/XR abdomen 1V* [id number] IMPRESSION: Oral contrast is identified within the stomach. No contrast is identified distal to the stomach.
--- NOTE | 2024-12-06 20:01 | P.CONIM_ITS ---
Providers/Reason For Consult 2 Consulting Physician/Specialty*: natalya peterson MD general surgery Reason for Consult*: evaluate N/V and poor appetite and dilated stomach on x ray. Requesting Physician: MD [facility] hospitalist. Attending Physician: Cassandra Collazo MD Primary Care Provider: Torin Sandhu MD History of Present Illness History of Present Illness Lexy Chawla is a 79 year old female Review of Systems 2 Narrative: Constitutional: denies rigors, singnificant weight gain, increased appetite HEENT: denies chronic cough, blurry vision, excessive tearing, eye pain, flashing lights, odynophagia, painful mastication, change in voice, change in taste, chronic sore throat, hypersalivation Heart: denies racing heart, palpitations, othropnea, PND Lungs: denies hemoptysis, pain with deep inspiration, chronic bronchitis GI: denies hematemesis, hematochezia, dysphagia, tenesmus : denies polyuria, hematuria, painful micturation Musculoskeletal: denies hemarthrosis, Muscle wasting, change in amubation Neuro: denies new onset syncope, dysesthesia, dysequilibrium, ptosis eyelid or face SKin: denies new onset hyperalgia, new rash new cyanosis Endocrine: denies new polyuria, polydipsia, polyphagia, heat intolerance, excessive energy Hem/Onc: denies new petechiae, swollen glands, new excessive epstaxis Psych: denies racing thought Medications/Allergies Home Medications ?Medication ?Instructions ?Recorded ?Confirmed ?Last Taken ?Type pantoprazole 40 mg tablet,delayed 40 mg PO DAILY 12/0612/04/24 12/03/24 History release hydrocodone 7.5 mg-acetaminophen 1 tab PO BID PRN pain 30 days #60 06/12/24 12/04/24 Unknown Rx 325 mg tablet tabs spironolactone 25 mg tablet 25 mg PO DAILY #90 tabs 12/04/24 06/18/24 Rx metoclopramide HCl 10 mg tablet 10 mg PO Q6H PRN nause a and 07/30/24 12/04/24 Unknown Rx vomiting #60 tabs cholestyramine (with sugar) 4 gram See Rx Instructions .Route 08/06/24 12/04/24 Unknown Rx oral powder .COMPLEX #378 grams promethazine 25 mg tablet 25 mg PO Q8H PRN Nausea #30 tabs 08/08/24 12/04/24 Unknown Rx diphenoxylate-atropine 2.5 1 tab PO BID PRN diarrhea 3 0 days 09/09/24 12/04/24 Unknown Rx mg-0.025 mg tablet #60 tabs triamcinolone acetonide 0.1 % 1 applic topical DAILY P RN Skin 09/30/24 12/04/24 Unknown Rx topical cream Irritation #80 grams ferrous gluconate 324 mg (37.5 mg 324 mg PO BID #60 ta bs 10/01/24 12/04/24 12/03/24 Rx iron) tablet duloxetine 30 mg capsule,delayed 30 mg PO DAILY #30 ca ps 10/22/24 12/04/24 12/03/24 Rx release pregabalin 150 mg capsule 150 mg PO DAILY #60 caps 12/04/24 12/03/24 Rx diclofenac sodium 75 mg 75 mg PO DAILY PRN Pain 03/3012/04/24 Unknown History tablet,delayed release furosemide 40 mg tablet 40 mg PO DAILY PRN swelling 12/04/24 12/04/24 Unknown History levothyroxine 125 mcg tablet 125 mcg PO DAILY 12/04/24 12/04/24 12/03/24 History lidocaine 5 % topical ointment 1 applic topical DAILY 12/04/24 12/04/24 12/03/24 History metoprolol tartrate 25 mg tablet 25 mg PO DAILY 12/04/24 12/03/24 History potassium chloride 10 mEq 20 meq PO BID 12/04/2412/0412/03/24 History capsule,extended release rivaroxaban 10 mg tablet (Xarelto) 10 mg PO DAILY 03/3012/04/24 12/03/24 History Allergies Allergy/AdvReac Type Severity Reaction Status Date / Time clindamycin Allergy chest pain Verified 12/04/24 11:35 Penicillins Allergy rash Verified 12/04/24 11:35 Current Medications Generic Name Dose Route Start Last Admin Trade Name Freq PRN Reason Stop Dose Admin Ceftriaxone Sodium 1,000 mg 12/05/24 12:00 12/06/24 12:47 Ceftriaxone 1,000 Mg Sdv IVP 1,000 mg Q24H MONA Administration Protocol Docusate Sodium 100 mg 12/05/24 05:00 12/06/24 18:25 Docusate Sodium 100 Mg Capsule PO 100 mg BID MONA Administration Heparin Sodium (Porcine) 5,000 unit 12/04/24 17:15 12/06/24 17:15 Heparin 5,000 Unit/Ml Inj 1 Ml SUBCUT 5,000 unit Q12H MONA Administration Sodium Chloride 1,000 mls @ 75 mls/hr 12/05/24 20:00 12/06/24 09:07 Sodium Chloride 0.45% IV 75 mls/hr .[id number] MONA Administration Megestrol Acetate 400 mg 12/05/24 11:00 12/06/24 04:54 Megestrol 400 Mg/10 Ml Udc PO 400 mg DAILY MONA Administration Metoclopramide HCl 5 mg 12/06/24 14:30 12/06/24 15:10 Metoclopramide 5 Mg/Ml Sdv 2 Ml IVP 5 mg Q6H MONA Administration Multivitamins Therapeutic 1 tab 12/05/24 11:00 12/06/24 04:55 Multivitamin Therapeutic Tablet PO 1 tab DAILY MONA Administration Ondansetron HCl 4 mg 12/04/24 17:00 12/05/24 20:15 Ondansetron 2 Mg/Ml Sdv 2 Ml IVP 4 mg Q6H PRN Administration NAUSEA AND VOMITING Pantoprazole Sodium 40 mg 12/05/24 05:00 12/06/24 04:[address] 40 Mg Tablet PO 40 mg DAILY MONA Administration PFSH Acute 2 PFSH: Medical History (Updated 12/06/24 @ 20:04 by Sukhjinder Peterson MD) IBS (irritable bowel syndrome) Hypertension Colitis Hypomagnesemia Normal anion gap metabolic acidosis Diarrhea Dehydration Acute renal failure Hemorrhoids Hypokalemia Diffuse large b-cell lymphoma, lymph nodes of head, face, 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 This occurred last night. On exam today no actual bleeding seen anywhere. Stitch from her vault suspension was again noted today on exam. No granulation tissue was noted on exam. However, due to this intermittent reporting of bleeding, I went ahead and removed the stitch. On removal, the stitch appeared to not be attached to anything other than the vaginal wall. Patient still had a urethral caruncle noted with a small spot adjacent to it which is suspicious for possible bleeding from that area. With her being on the Xarelto, she may have bled from either the caruncle or from the stitch in the vagina. Questions were answered. Follow-up as needed. Surgical History History of endoscopy 08/2022 - Dr. Blanton at [facility]. S/P lumpectomy, right breast (01/27/20) H/O excision of mass H/O colonoscopy 2013 H/O esophagogastroduodenoscopy 2018 History of laparotomy (~1996) left ovarian cystectomy Hx of hysterectomy (~04/08/14) with vaginal repair------- TVH, LSO, Uterosacral ligament suspension, Anterior vaginal repair, Perineorrhaphy, Single incision suburethral sling, Cystoscopy, Lysis of bowel adhesions. 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 Performed by Dr. Remi Musa at [facility] in [place], [place]. Surgical findings: Third degree cystocele, second to third degree uterine prolapse, adhesions of the sigmoid to the left fundal portion of the uterus and to the left ovary, left ovarian cyst present. History of surgery on right wrist (~12/2010) Hx of cholecystectomy (~02/2005) Laparoscopic. Performed by Dr. Blanton at [facility] in [place], [place]. History of bunionectomy (~2001) left H/O ovarian cystectomy (~1996) Left-- Laparotomy Hx of breast biopsy (~1993) 1993-- 1 cyst removed from left breast and 2 cysts removed from right breast. All pathologies were benign. History of tonsillectomy and adenoidectomy (~1951) Family History Grandfather Diabetes Maternal Mother Breast cancer dx at age 45 Denies family history of Colon cancer Ovarian cancer Heart disease Hypercholesteremia Anesthesia complication Bleeding disorder Hypertension Uterine cancer Thyroid disease Stroke Social History Smoking and tobacco/nicotine status: never used tobacco/nicotine Vitals/I&O/Wt Last Vital Signs Temp 98.5 F 12/06/24 16:00 Pulse 109 H 12/06/24 16:00 Resp 18 12/06/24 16:00 BP 131/80 12/06/24 16:00 Pulse Ox 98 12/06/24 16:00 O2 Del Method Room Air 12/06/24 16:00 12/06/24 12/06/24 12/06/24 06:59 14:59 22:59 Intake Total 200 / 2471.667 1070 / 1070 Output Total 400 / 400 Balance 200 / 2171.667 670 / 670 Weight last 48 hrs Weight 124 lb Weight 124 lb 7 oz Weight 125 lb Physical Exam 2 Narrative: Patient is a well developed well nourished and in NAD and is afebrile with vitals stable and is answering questions appropriately with a normal affect and is alert and oriented x3 HEENT: normocephalic with normal external ears and nonicteric, oral mucosa moist and dentition normal for age, trachea midline with no large masses visualized Heart: RRR, no gallops murmurs or rubs, normal PMI with no thrills Lungs: normal excursions, no loud audible wheezing, no subcutaneous emphysema Abdomen: nondistended, no gross hepatosplenomegaly, no masses, no rigidity or rebound, no loud borborygmi Neuro: nonfocal, CROOK, grossly normal sensation Musculoskeletal: good muscle tone, no fasciculations, normal gait Skin: pink warm and dry with no rashes or ecchymosis Vascular: good radial pulses, no ulceration, less than 2 second capillary refill in hand : deferred Data 12/05/24 04:28 12/06/24 04:41 Micro: Microbiology 12/04/24 14:40 Urine Culture - Preliminary Urine,Clean Catch Strep species, gamma-hemolytic A&P Assessment and plan 1. Weight loss, unintentional: 2. GI bleed: 3. Gastric distention: Patient will have EGD to rule out cause of gastric distention and weight loss. She has had EGD but a while ago. She has had speech pathology to evaluate her for dysphagia and she may benefit from this again to she if she has possible motility problems swallowing since it has been years since her last one. She needs to be off blood thinners for EGD PDMP PDMP Reviewed: Not Reviewed Coding Level of Care Code 45218 Diagnoses Weight loss, unintentional R63.4 GI bleed K92.2 Gastric distention K31.89
--- NOTE | 2024-12-06 21:00 | XRR_ITS ---
PROCEDURE INFORMATION: Exam: XR Abdomen Exam date and time: 12/06/2024 8:45 PM Age: 79 years old Clinical indication: Other: Suspected gastric outlet obstruction; Abdominal pain; Gastrograffin trial-5hr film; Prior surgery; Surgery date: 6+ months; Surgery type: Hysterectomy, cholecystectomy, RT lumpectomy; Additional info: Gi follow through TECHNIQUE: Imaging protocol: Radiologic exam of the abdomen. Views: Frontal supine view of the abdomen. 1 View. COMPARISON: CR (ABDOMEN, ) 12/06/2024 6:02 PM FINDINGS: Gastrointestinal tract: Stable colonic dilatation. Contrast remains within the stomach. Bones/joints: Unremarkable. XR/XR KUB portable [id number] IMPRESSION: Contrast remains within the stomach.
[2024-12-06 22:31] LABS: C.Diff PCR (Lab) NEGATIVE (Negative)
[2024-12-07] VITALS (17 sets, daily range): BP systolic 91–144; BP diastolic 48–72; PULSE 82–123; RESP 14–20; TEMP 36.1–37.2; O2SAT 91–100
[2024-12-07] MEDS: metoclopramide 5 mg/mL SDV 2 mL IVP ×4 (03:07→20:47)
--- NOTE | 2024-12-07 04:00 | XRR_ITS ---
PROCEDURE INFORMATION: Exam: XR Abdomen Exam date and time: 12/07/2024 05:47 AM Age: 79 years old Clinical indication: Other: F/u gastrograffin follo thru; Prior surgery; Surgery date: 6+ months; Surgery type: Gb. Hysterectomy; 14 hour f/u gastrograffin follow thru for suspected gastric outlet obstruction; Additional info: Gastrograffin follow through TECHNIQUE: Imaging protocol: Radiologic exam of the abdomen. Views: Frontal supine view of the abdomen. 1 View. COMPARISON: CR (ABDOMEN, ) 12/06/2024 08:45 PM FINDINGS: Gastrointestinal tract: Radiopaque contrast predominantly within small bowel and possibly a small amount in the ascending colon. Moderate air distension of likely the transverse colon. Contrast is no longer visualized within the stomach. Intraperitoneal space: Right upper quadrant surgical clips. Vasculature: IVC stent over the mid abdomen. Bones/joints: Degenerative changes of the spine mild lumbar curvature. XR/XR abdomen 1V* [id number] IMPRESSION: 1. Moderate air distension of likely the transverse colon. 2. Radiopaque contrast predominantly within small bowel and possibly a small amount in the ascending colon. No contrast is visualized within the stomach.
[2024-12-07 04:19] LABS: Hematocrit 23.4 % (36-47); Hemoglobin 7.50 g/dL (11.27-16.99); Mean Corpuscular HGB Conc 32.1 g/dL (30-55); Mean Corpuscular Hemoglobin 33.0 pg (27-33); Mean Corpuscular Volume 103.1 fl (85-98); Nucleated Red Blood Cells % 0 %; Platelet Count 127 10^3/cmm (157-399); Red Blood Count 2.27 10^6/uL (3.85-5.65); White Blood Count 4.00 10^3/uL (3.29-11.43)
[2024-12-07 04:46] LABS: Alanine Aminotransferase 13 U/L (0-33); Albumin Level 2.3 g/dL (3.5-5.2); Alkaline Phosphatase 98 U/L (35-105); Anion Gap 11.8 (5-19); Aspartate Amino Transferase 23 U/L (0-32); Blood Urea Nitrogen 18 mg/dL (8-23); Calcium 7.5 mg/dL (8.5-10.5); Carbon Dioxide 14 mmol/L (22-29); Chloride 120 mmol/L (98-107); Globulin 1.8 g/dL (1.3-4.6); Glucose 103 mg/dL (65-115); Magnesium 1.7 mg/dL (1.7-2.3); Osmolality Calculated 296 mOsm/kg (285-295); Potassium 3.8 mmol/L (3.5-5.1); Sodium 142 mmol/L (136-145); Total Protein 4.1 g/dL (6.6-8.7)
[2024-12-07 05:02] LABS: Creatinine Clr Calc Pharmacy 41.8242
--- NOTE | 2024-12-07 05:24 | PC.NURSE ---
Patients 0500 medications are being held due to her being NPO and going for an EGD this morning.
--- NOTE | 2024-12-07 10:00 | ANES.PREANE2 ---
Pre-Anesthetic Assessment Height/Weight: Height 5 ft 6 in Weight 124 lb Temp Pulse Resp BP Pulse Ox O2 Del Method 98.7 F 122 H 17 96/62 99 Room Air 12/07/24 07:30 12/07/24 08:00 12/07/24 07:30 12/07/24 08:00 12/07/24 07:30 12/07/24 07:30 Preop Diagnosis: dysphagia and dilated stomach and anorexia Was Beta Jose taken within 24 hours: Yes Was Clonidine taken within 24 hours: N/A Social No alcohol and No tobacco Exam alert, oriented x 3, clear to auscultation bilaterally and regular rate & rhythm Airway Submandibular: within normal limits Cervical ROM: within normal limits Mallampati: Class III Comments: Comments: Currently edentulous Anesthetic Plan ASA status: 3 Anesthesia: MAC Other: Patient initially admitted on 12/04/2024 for severe dehydration and hypotension. Patient was also experiencing a near syncopal event with profound weakness Patient received sepsis fluid bolus in the ER and has continued to be on fluids since hospitalization Patient has had a severe lack of oral intake and not been eating anything. they note a 20 pound weight loss in the last 2 months Patient is immunosuppressed due to prior chemotherapy History of hypothyroidism on Synthroid Hypertension on metoprolol On chronic Xarelto, last taken 12/03/2024 Labs reviewed from today, WBC 4, hemoglobin 7.5, platelet count 127, NA 142, K+ 3.8 Echo performed on 12/05/2024 showing EF of 60 to 65% Initial concern for patient having a very dilated stomach, contrast study performed which shows passage of contrast into the small intestine Plan for MAC anesthesia Medications/Allergies Home Medications ?Medication ?Instructions ?Recorded ?Confirmed ?Last Taken ?Type pantoprazole 40 mg tablet,delayed 40 mg PO DAILY 12/07/23 12/04/24 12/03/24 History release hydrocodone 7.5 mg-acetaminophen 1 tab PO BID PRN pain 30 days #60 06/12/24 12/04/24 Unknown Rx 325 mg tablet tabs spironolactone 25 mg tablet 25 mg PO DAILY #90 tabs 06/12/24 12/04/24 06/18/24 Rx metoclopramide HCl 10 mg tablet 10 mg PO Q6H PRN nausea and 07/30/24 12/04/24 Unknown Rx vomiting #60 tabs cholestyramine (with sugar) 4 gram See Rx Instructions .Route 08/06/24 12/04/24 Unknown Rx oral powder .COMPLEX #378 grams promethazine 25 mg tablet 25 mg PO Q8H PRN Nausea #30 tabs 08/08/24 12/04/24 Unknown Rx diphenoxylate-atropine 2.5 1 tab PO BID PRN diarrhea 30 days 09/09/24 12/04/24 Unknown Rx mg-0.025 mg tablet #60 tabs triamcinolone acetonide 0.1 % 1 applic topical DAILY PRN Skin 09/30/24 12/04/24 Unknown Rx topical cream Irritation #80 grams ferrous gluconate 324 mg (37.5 mg 324 mg PO BID #60 tabs 10/01/24 12/04/24 12/03/24 Rx iron) tablet duloxetine 30 mg capsule,delayed 30 mg PO DAILY #30 caps 10/22/24 12/04/24 12/03/24 Rx release pregabalin 150 mg capsule 150 mg PO DAILY #60 caps 10/22/24 12/04/24 12/03/24 Rx diclofenac sodium 75 mg 75 mg PO DAILY PRN Pain 12/04/24 12/04/24 Unknown History tablet,delayed release furosemide 40 mg tablet 40 mg PO DAILY PRN swelling 12/04/24 12/04/24 Unknown History levothyroxine 125 mcg tablet 125 mcg PO DAILY 12/04/24 12/04/24 12/03/24 History lidocaine 5 % topical ointment 1 applic topical DAILY 12/04/24 12/04/24 12/03/24 History metoprolol tartrate 25 mg tablet 25 mg PO DAILY 12/04/24 12/04/24 12/03/24 History potassium chloride 10 mEq 20 meq PO BID 12/04/24 12/04/24 12/03/24 History capsule,extended release rivaroxaban 10 mg tablet (Xarelto) 10 mg PO DAILY 12/04/24 12/04/24 12/03/24 History Allergies Allergy/AdvReac Type Severity Reaction Status Date / Time clindamycin Allergy chest pain Verified 12/04/24 11:35 Penicillins Allergy rash Verified 12/04/24 11:35 Current Medications Generic Name Dose Route Start Last Admin Trade Name Freq PRN Reason Stop Dose Admin Ceftriaxone Sodium 1,000 mg 12/05/24 12:00 12/06/24 12:47 Ceftriaxone 1,000 Mg Sdv IVP 1,000 mg Q24H MONA Administration Protocol Docusate Sodium 100 mg 12/05/24 05:00 12/07/24 04:34 Docusate Sodium 100 Mg Capsule PO Not Given BID MONA Heparin Sodium (Porcine) 5,000 unit 12/04/24 17:15 12/06/24 17:15 Heparin 5,000 Unit/Ml Inj 1 Ml SUBCUT 5,000 unit Q12H MONA Administration Megestrol Acetate 400 mg 12/05/24 11:00 12/06/24 04:54 Megestrol 400 Mg/10 Ml Udc PO 400 mg DAILY MONA Administration Metoclopramide HCl 5 mg 12/06/24 14:30 12/07/24 03:07 Metoclopramide 5 Mg/Ml Sdv 2 Ml IVP 5 mg Q6H MONA Administration Midodrine 5 mg 12/06/24 21:00 12/06/24 20:55 Midodrine 5 Mg Tablet PO 5 mg TID MONA Administration Multivitamins Therapeutic 1 tab 12/05/24 11:00 12/06/24 04:55 Multivitamin Therapeutic Tablet PO 1 tab DAILY MONA Administration Ondansetron HCl 4 mg 12/04/24 17:00 12/05/24 20:15 Ondansetron 2 Mg/Ml Sdv 2 Ml IVP 4 mg Q6H PRN Administration NAUSEA AND VOMITING Pantoprazole Sodium 40 mg 12/05/24 05:00 12/06/24 04:[address] 40 Mg Tablet PO 40 mg DAILY MONA Administration [facility] Anesthesia Medical History (Updated 12/06/24 @ 20:04 by Sukhjinder Nunes MD) IBS (irritable bowel syndrome) Hypertension Colitis Hypomagnesemia Normal anion gap metabolic acidosis Diarrhea Dehydration Acute renal failure Hemorrhoids Hypokalemia Diffuse large b-cell lymphoma, lymph nodes of head, face, 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 This occurred last night. On exam today no actual bleeding seen anywhere. Stitch from her vault suspension was again noted today on exam. No granulation tissue was noted on exam. However, due to this intermittent reporting of bleeding, I went ahead and removed the stitch. On removal, the stitch appeared to not be attached to anything other than the vaginal wall. Patient still had a urethral caruncle noted with a small spot adjacent to it which is suspicious for possible bleeding from that area. With her being on the Xarelto, she may have bled from either the caruncle or from the stitch in the vagina. Questions were answered. Follow-up as needed. Surgical History History of endoscopy 08/2022 - Dr. Blanton at [facility]. S/P lumpectomy, right breast (01/27/20) H/O excision of mass H/O colonoscopy 2013 H/O esophagogastroduodenoscopy 2018 History of laparotomy (~1996) left ovarian cystectomy Hx of hysterectomy (~04/08/14) with vaginal repair------- TVH, LSO, Uterosacral ligament suspension, Anterior vaginal repair, Perineorrhaphy, Single incision suburethral sling, Cystoscopy, Lysis of bowel adhesions. 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 Performed by Dr. Remi Musa at [facility] [place] [facility] in [place], [place]. Surgical findings: Third degree cystocele, second to third degree uterine prolapse, adhesions of the sigmoid to the left fundal portion of the uterus and to the left ovary, left ovarian cyst present. History of surgery on right wrist (~12/2010) Hx of cholecystectomy (~02/2005) Laparoscopic. Performed by Dr. Blanton at [facility] [place] [facility] in [place], [place]. History of bunionectomy (~2001) left H/O ovarian cystectomy (~1996) Left-- Laparotomy Hx of breast biopsy (~1993) 1993-- 1 cyst removed from left breast and 2 cysts removed from right breast. All pathologies were benign. History of tonsillectomy and adenoidectomy (~1951) Family History Grandfather Diabetes Maternal Mother Breast cancer dx at age 45 Denies family history of Colon cancer Ovarian cancer Heart disease Hypercholesteremia Anesthesia complication Bleeding disorder Hypertension Uterine cancer Thyroid disease Stroke Social History Smoking and tobacco/nicotine status: never used tobacco/nicotine Data Anesthesia 12/07/24 03:00 12/07/24 03:00 Short CBC 12/07/24 Range/Units 03:00 WBC 4.00 (3.29-11.43) 10^3/uL Hgb 7.50 L (11.27-16.99) g/dL Hct 23.4 L (36-47) % MCV 103.1 H (85-98) fl Plt Count 127 L (157-399) 10^3/cmm Neut % (Auto) 45.4 % Neut # (Auto) 1.82 (1.8-7.7) 10^3/uL BMP 12/06/24 12/07/24 04:41 03:00 Sodium 142 142 Potassium 4.1 3.8 Chloride 119 H 120 H Carbon Dioxide 13 L 14 L BUN 17 18 Creatinine 1.0 H 1.0 H Glucose 94 103 Calcium 7.2 L 7.5 L Liver Function 12/06/24 12/07/24 Range/Units 04:41 03:00 Total Bilirubin 0.2 0.2 (0.15-1.2) mg/dL AST 19 23 (0-32) U/L ALT 12 13 (0-33) U/L Alkaline Phosphatase 91 98 (35-105) U/L Albumin 2.2 L 2.3 L (3.5-5.2) g/dL Microbiology 12/06/24 21:30 Occult Blood (FIT) - Final Stool Routine Collection 12/04/24 14:40 Urine Culture - Preliminary Urine,Clean Catch Strep species, gamma-hemolytic Cardiac Studies: Echocardiogram 12/05/24 Holter Monitor 11/23/23
--- NOTE | 2024-12-07 10:37 | PC.NURSE ---
Patient taken down for EGD at 1035 via bed
--- NOTE | 2024-12-07 11:54 | P.ANESPOST_ITS ---
Inpatient post-anesthesia follow up: Airway intact: Yes Vital signs: Temperature 97.6 F Pulse Rate [Orthos tatic 128 Standing Left] Pulse Rate [Orthos tatic 125 Sitting Left] Pulse Rate [Orthos tatic Lying 65 Left] Pulse Rate 83 Respiratory Rate 16 Blood Pressure [Or thostatic 106/71 Standing Right Arm ] Blood Pressure [Or thostatic 105/66 Sitting Right Arm] Blood Pressure [Or thostatic 128/72 Lying Right Arm] Blood Pressure 121/70 Pulse Oximetry 97 Oxygen Delivery Me thod Room Air Oxygen Flow Rate 10 Fraction of Inspir ed Oxygen Hydration adequate: Yes Nausea and vomiting: No Pain level: 1 Ment al status: Baseline
--- NOTE | 2024-12-07 12:10 | P.PN_ITS ---
Subjective 2 Subjective: planned for EGD today Medications: Reviewed: Yes Vitals/I&O/Wt Last Vital Signs Temp 97.9 F 12/07/24 11:52 Pulse 103 H 12/07/24 11:52 Resp 16 12/07/24 11:52 BP 101/60 12/07/24 11:52 Pulse Ox 99 12/07/24 11:52 O2 Del Method Room Air 12/07/24 11:52 O2 Flow Rate 10 12/07/24 11:22 12/06/24 12/07/24 12/07/24 22:59 06:59 14:59 Intake Total 1000 / 2070 240 / 2310 100 / 100 Output Total 925 / 1325 Balance 1000 / 1670 -685 / 985 100 / 100 Weight last 48 hrs Weight 56.245 kg Weight 56.245 kg Physical Exam 2 Narrative: General: No acute distress, AO x3 HEENT: PERRLA, pupils bilaterally equal and reactive, pallors not present Chest: Normal vesicular breath sounds, no added sounds, equal good air entry bilaterally CVS: S1-S2 regular, no murmurs, no tachycardia, no gallops, no rubs Abdomen: Soft, nontender, no organomegaly, bowel sounds present Neuro: No focal deficits, no facial deformity, AO x3, power 5/5 in all limbs Data 12/07/24 03:00 12/07/24 03:00 Micro: Microbiology 12/06/24 21:30 Occult Blood (FIT) - Final Stool Routine Collection 12/04/24 14:40 Urine Culture - Preliminary Urine,Clean Catch Strep species, gamma-hemolytic A&P Assessment and plan 1. Weakness generalized: 2. Weight loss, unintentional: 3. History of right breast cancer: 4. History of lymphoma: 5. Acidosis, hyperchloremic: 6. Acute prerenal azotemia: 7. Hypotension due to hypovolemia: 8. 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 - PT OT following Severe diarrhea - Culture orders have been placed. Patient had not produced any further stool since admission - Must continue to follow through and optimize Patient with history of lymphoma/breast cancer 6 years and 3 years respectively - Treated with no recurrence - Patient however had much bone marrow suppression and recovering December 06, 2024 79-year-old lady with a past medical history of lymphoma, currently in remission, treated 6 years ago with chemotherapy. History of breast cancer treated with radiation to the right breast, 2 years ago. As of most recent oncology evaluation, she is in remission with regards to both cancers. She is noted to be malnourished with a low albumin and reported 20 pound weight loss over the last 2 months. Patient has a history of chronic diarrhea dating back several months to years. Her diarrhea frequency has not recently changed. She has tried an elimination diet and gotten rid of all lactose products without any significant change in her symptoms. She has had a colonoscopy at our center in January 2024 without any obvious abnormalities except for diverticulosis. She reports having had an endoscopy remotely but does not remember the results of it. Patient reports dysphagia where she feels a sensation of food sticking, loss of appetite, inability to consume more than 10 to 20% of her meals dating back over several months. There is no history of C. difficile. Currently has not had a bowel movement in 2 days. She has not had an evaluation with gastroenterology for the symptoms yet. CT of the abdomen and pelvis obtained upon admission had shown severe gastric distention. There was additionally noted to be distention of the transverse colon with dense radiopacities in the cecal bascule presumed medication. Comparing to prior CAT scan from May 2024, the gastric distention appears to be new. Colonic distention was noted on previous CTs as well. On her CT from May 2024 note was made of an incidental soft tissue density adjacent to the pancreatic head. This was not seen on CT from December 04, 2024. Ordered for an upper abdomen GI series with small bowel follow-through today to assess for any gastric outlet obstruction which may be potentially an explanation for her symptoms. May need an endoscopy evaluation and gastric emptying study as the next steps. Consult general surgery. Add Reglan 5 mg IV every 6 hours. Upon admission patient had signs of severe dehydration, she has been on IV fluid normal saline at 75 cc an hour. Her rapid response was called on the day of admission due to hypotension. Orthostatics checked earlier this morning revealed a baseline blood pressure of 108/70 with orthostatic drop to 85/46 upon standing. Heart rate up from 97-1 28 upon standing. Positive orthostatic vital signs. Add midodrine 5 mg 3 times daily. Will follow with results of upper GI series. No known history of diabetes mellitus. Last echocardiogram reviewed from May 2024 with small pericardial effusion. Repeat echocardiogram has been taken on this current admission, results are pending at this time. 12/07/24 : gatsrograffin contrast showed delayed transit through the stomach. this am contrast noted in small bowel and ascending colon. Planned for EGD today to assess for outlet obstruction. Alternate differential is that of gastroparesis for which we will obtain gastric emptying study on monday as test cannot be perfromed over the weekend. Dehydrated after stopping IVF. resume gentle IVF at 30 cc/hr while closely monitoring interval devlopment of mild LE edema. Continue reglan today. BP better maintained after starting midodrine. Orthostatic drop less marked today. check am cortisol and TSH PDMP PDMP Reviewed: Not Reviewed Attestations 2 Medical Necessity Statement*: EGD today. Gastric emptying study on monday if EGD unrevealing. Coding Level of Care Code Acute Code for Chg Fwd Diagnoses Weakness generalized R53.1 Weight loss, unintentional R63.4 History of right breast cancer Z85.3 History of lymphoma Z85.72 Acidosis, hyperchloremic E87.29 Acute prerenal azotemia N19 Hypotension due to hypovolemia E86.1 Severe dehydration E86.0
[2024-12-07] MEDS: saliva stimulant spray 30 mL Btl 1 SPRAY MUCOUS MEM ×4 (13:42→23:54)
[2024-12-07] MEDS: multivitamin therapeutic Tablet 1 TAB PO (13:42)
[2024-12-07] MEDS: cefTRIAXone 1,000 mg SDV 1000 MG IVP (13:42)
[2024-12-07] MEDS: heparin 5,000 unit/mL INJ 1 mL 5000 UNIT SUBCUT (18:56)
[2024-12-08] VITALS (12 sets, daily range): BP systolic 105–135; BP diastolic 65–77; PULSE 65–128; RESP 16–18; TEMP 36.6–37.4; O2SAT 94–100
[2024-12-08] MEDS: metoclopramide 5 mg/mL SDV 2 mL IVP ×4 (02:24→20:40)
[2024-12-08 03:31] LABS: Hematocrit 21.6 % (36-47); Hemoglobin 7.10 g/dL (11.27-16.99); Mean Corpuscular HGB Conc 32.9 g/dL (30-55); Mean Corpuscular Hemoglobin 33.0 pg (27-33); Mean Corpuscular Volume 100.5 fl (85-98); Nucleated Red Blood Cells % 0 %; Platelet Count 124 10^3/cmm (157-399); Red Blood Count 2.15 10^6/uL (3.85-5.65); White Blood Count 3.20 10^3/uL (3.29-11.43)
[2024-12-08 03:47] LABS: Alanine Aminotransferase 14 U/L (0-33); Albumin Level 2.3 g/dL (3.5-5.2); Alkaline Phosphatase 95 U/L (35-105); Blood Urea Nitrogen 12 mg/dL (8-23); Calcium 7.3 mg/dL (8.5-10.5); Carbon Dioxide 17 mmol/L (22-29); Chloride 119 mmol/L (98-107); Creatinine Clr Calc Pharmacy 52.2803; Globulin 1.6 g/dL (1.3-4.6); Glucose 89 mg/dL (65-115); Osmolality Calculated 295 mOsm/kg (285-295); Sodium 143 mmol/L (136-145); Total Protein 3.9 g/dL (6.6-8.7)
[2024-12-08 03:53] LABS: Anion Gap 10.4 (5-19); Aspartate Amino Transferase 27 U/L (0-32); Potassium 3.4 mmol/L (3.5-5.1)
[2024-12-08 03:59] LABS: Thyroid Stimulating Hormone 10.42 uIU/mL (0.27-4.20)
[2024-12-08] MEDS: saliva stimulant spray 30 mL Btl 1 SPRAY MUCOUS MEM ×5 (05:32→20:41)
[2024-12-08] MEDS: multivitamin therapeutic Tablet 1 TAB PO (05:33)
[2024-12-08] MEDS: heparin 5,000 unit/mL INJ 1 mL 5000 UNIT SUBCUT (05:37)
--- NOTE | 2024-12-08 13:15 | USR_ITS ---
PROCEDURE INFORMATION: Exam: US Duplex Lower Extremity Veins, Bilateral Exam date and time: 12/08/2024 2:52 PM Age: 79 years old Clinical indication: Screening exam; Assess for dvt TECHNIQUE: Imaging protocol: Real-time duplex ultrasound of the bilateral extremities with 2-D mcguire scale, color Doppler flow and spectral waveform analysis including responses to compression and other maneuvers (when performed) with image documentation. Complete exam focused on the lower extremity veins. COMPARISON: US renal BI* [id number] 05/29/2024 9:53 PM FINDINGS: Right deep veins: The common femoral vein, profunda femoral vein and popliteal vein are widely patent. There is wall thickening involving a portion of the superficial femoral vein. However, no thrombus noted. Left deep veins: Unremarkable. The common femoral, femoral, proximal profunda femoral and popliteal veins are patent without thrombus. Normal Doppler waveforms. Normal compressibility and/or augmentation response. Superficial veins: Greater saphenous veins at the saphenofemoral junctions are patent bilaterally without thrombus. Soft tissues: Unremarkable. US/[place] [id number] IMPRESSION: 1. No evidence of deep vein thrombosis. 2. Wall thickening involves the right SFV felt to represent scarring from previous thrombosis
[2024-12-08] MEDS: cefTRIAXone 1,000 mg SDV 1000 MG IVP (13:21)
--- NOTE | 2024-12-08 15:39 | P.PN_ITS ---
Subjective 2 Subjective: Status post endoscopy yesterday. Findings below. Hemoglobin drifting down to 7.1 today. No gross melena. Medications: Reviewed: Yes Vitals/I&O/Wt Last Vital Signs Temp 98.5 F 12/08/24 12:30 Pulse 65 12/08/24 14:37 Resp 17 12/08/24 12:30 BP 128/72 12/08/24 14:37 Pulse Ox 96 12/08/24 12:30 O2 Del Method Room Air 12/08/24 04:00 O2 Flow Rate 10 12/07/24 11:22 12/08/24 12/08/24 12/08/24 06:59 14:59 22:59 Intake Total 1630 / 1630 Balance 1630 / 1630 Weight last 48 hrs Weight 57.561 kg Weight 56.245 kg Physical Exam 2 Narrative: General: No acute distress, AO x3 HEENT: PERRLA, pupils bilaterally equal and reactive, pallors not present Chest: Normal vesicular breath sounds, no added sounds, equal good air entry bilaterally CVS: S1-S2 regular, no murmurs, no tachycardia, no gallops, no rubs Abdomen: Soft, nontender, no organomegaly, bowel sounds present Neuro: No focal deficits, no facial deformity, AO x3, power 5/5 in all limbs Data 12/08/24 02:56 12/08/24 02:56 Micro: Microbiology 12/04/24 14:40 Urine Culture - Final Urine,Clean Catch Enterococcus faecium A&P Assessment and plan 1. Weakness generalized: 2. Weight loss, unintentional: 3. History of right breast cancer: 4. History of lymphoma: 5. Acidosis, hyperchloremic: 6. Acute prerenal azotemia: 7. Hypotension due to hypovolemia: 8. 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 - PT OT following Severe diarrhea - Culture orders have been placed. Patient had not produced any further stool since admission - Must continue to follow through and optimize Patient with history of lymphoma/breast cancer 6 years and 3 years respectively - Treated with no recurrence - Patient however had much bone marrow suppression and recovering December 06, 2024 79-year-old lady with a past medical history of lymphoma, currently in remission, treated 6 years ago with chemotherapy. History of breast cancer treated with radiation to the right breast, 2 years ago. As of most recent oncology evaluation, she is in remission with regards to both cancers. She is noted to be malnourished with a low albumin and reported 20 pound weight loss over the last 2 months. Patient has a history of chronic diarrhea dating back several months to years. Her diarrhea frequency has not recently changed. She has tried an elimination diet and gotten rid of all lactose products without any significant change in her symptoms. She has had a colonoscopy at our center in January 2024 without any obvious abnormalities except for diverticulosis. She reports having had an endoscopy remotely but does not remember the results of it. Patient reports dysphagia where she feels a sensation of food sticking, loss of appetite, inability to consume more than 10 to 20% of her meals dating back over several months. There is no history of C. difficile. Currently has not had a bowel movement in 2 days. She has not had an evaluation with gastroenterology for the symptoms yet. CT of the abdomen and pelvis obtained upon admission had shown severe gastric distention. There was additionally noted to be distention of the transverse colon with dense radiopacities in the cecal bascule presumed medication. Comparing to prior CAT scan from May 2024, the gastric distention appears to be new. Colonic distention was noted on previous CTs as well. On her CT from May 2024 note was made of an incidental soft tissue density adjacent to the pancreatic head. This was not seen on CT from December 04, 2024. Ordered for an upper abdomen GI series with small bowel follow-through today to assess for any gastric outlet obstruction which may be potentially an explanation for her symptoms. May need an endoscopy evaluation and gastric emptying study as the next steps. Consult general surgery. Add Reglan 5 mg IV every 6 hours. Upon admission patient had signs of severe dehydration, she has been on IV fluid normal saline at 75 cc an hour. Her rapid response was called on the day of admission due to hypotension. Orthostatics checked earlier this morning revealed a baseline blood pressure of 108/70 with orthostatic drop to 85/46 upon standing. Heart rate up from 97-1 28 upon standing. Positive orthostatic vital signs. Add midodrine 5 mg 3 times daily. Will follow with results of upper GI series. No known history of diabetes mellitus. Last echocardiogram reviewed from May 2024 with small pericardial effusion. Repeat echocardiogram has been taken on this current admission, results are pending at this time. 12/07/24 : gatsrograffin contrast showed delayed transit through the stomach. this am contrast noted in small bowel and ascending colon. Planned for EGD today to assess for outlet obstruction. Alternate differential is that of gastroparesis for which we will obtain gastric emptying study on monday as test cannot be perfromed over the weekend. Dehydrated after stopping IVF. resume gentle IVF at 30 cc/hr while closely monitoring interval devlopment of mild LE edema. Continue reglan today. BP better maintained after starting midodrine. Orthostatic drop less marked today. check am cortisol and TSH 12/08/2024 Status post EGD yesterday which did not show any gastric outlet obstruction or obstructing masses. Esophagus was noted to be normal. There was found to be gastritis with contact bleeding. Area was flat about 3 to 4 cm and could represent metaplasia. Duodenum was normal. Cold biopsy was taken from the second part of the duodenum and antrum, results are awaited. Biopsy results will need to be followed up as an outpatient. In the interim increase Protonix 40 mg twice daily. Holding heparin in view of contact bleeding noted yesterday. Hemoglobin drifting down to 7.1 today. Ordered for 1 unit packed red blood cell transfusion. As an outpatient patient is noted to be on Xarelto which is currently on hold. It appears this is due to a history of DVT. Patient has an IVC filter in place which is noted on abdominal imaging. Noted to have lower extremity swelling, however patient states this is better than usual. No crackles on exam. Will hold off on any diuretics today. Echocardiogram with ejection fraction of 65%. Noted to have sinus tachycardia with heart rate up to 128. In part this may be contributed by holding metoprolol due to hypotension thus far. Now with improved blood pressure and orthostatic with midodrine, will resume metoprolol at 12.5 mg p.o. daily and closely monitor. Increase midodrine to 10 mg 3 times daily. Blood transfusion may additionally help with tachycardia and orthostatic hypotension. Plan for gastric emptying study tomorrow. Continue metoclopramide every 6 hours. Patient reports a history of peripheral neuropathy in her lower extremities and hands previously. Also has a history of rheumatoid arthritis with significant deformities affecting her fingers. Potentially neuropathy may be related to RA. check HbA1c. TSH at 10. Check free T3, free T4. Dose of levothyroxine may need to be adjusted based on these results. Recommend follow-up with gastroenterology as an outpatient for chronic diarrhea and also results of gastric emptying if resulted abnormal. C diff negative. No diarrhea today. If orthostatics heart rate and other vital signs remained stable may be able to discharge after gastric emptying study tomorrow. Mild leukopenia noted on labs today with WBC at 3.2. One-time fever of 100.4 on 12/06/2024. Check respiratory viral panel. Patient was on treatment for UTI with ceftriaxone. Will discontinue today. Urine culture today has been updated from gamma hemolytic strep to Enterococcus fecium. Change to linezolid 600mg bid x 3 days PDMP PDMP Reviewed: Not Reviewed Attestations 2 Medical Necessity Statement*: transfusion today, gastric emptying study tomorrow Coding Level of Care Code Acute Code for Chg Fwd Diagnoses Weakness generalized R53.1 Weight loss, unintentional R63.4 History of right breast cancer Z85.3 History of lymphoma Z85.72 Acidosis, hyperchloremic E87.29 Acute prerenal azotemia N19 Hypotension due to hypovolemia E86.1 Severe dehydration E86.0
[2024-12-08 16:00] LABS: Free T4 Free Thyroxine 1.24 ng/dL (0.82-1.77)
[2024-12-08 17:42] LABS: Estmated Average Glucose 77; Hemoglobin A1C 4.3 % (4.0-6.0)
[2024-12-08 20:22] LABS: Coronavirus 229E,HKU1,NL63,OC4 Not Detected (NOT DETECT); Parainfluenza Virus Type 1 Not Detected (NOT DETECT); Parainfluenza Virus Type 2 Not Detected (NOT DETECT); Parainfluenza Virus Type 3 Not Detected (NOT DETECT); Parainfluenza Virus Type 4 Not Detected (NOT DETECT); SARS-COV-2 Not Detected (NOT DETECT)
[2024-12-08 22:26] LABS: Hematocrit 27.5 % (36-47); Hemoglobin 9.00 g/dL (11.27-16.99)
[2024-12-08] MEDS: ondansetron 2 mg/ML SDV 2 mL 4 MG IVP (23:47)
[2024-12-09 04:00] VITALS: BP 123/69; PULSE 85; RESP 16; TEMP 36.4; O2SAT 97
[2024-12-09 05:18] LABS: Hematocrit 25.8 % (36-47); Hemoglobin 8.30 g/dL (11.27-16.99); Mean Corpuscular HGB Conc 32.2 g/dL (30-55); Mean Corpuscular Hemoglobin 31.6 pg (27-33); Mean Corpuscular Volume 98.1 fl (85-98); Nucleated Red Blood Cells % 0 %; Platelet Count 130 10^3/cmm (157-399); Red Blood Count 2.63 10^6/uL (3.85-5.65); White Blood Count 4.50 10^3/uL (3.29-11.43)
[2024-12-09 05:40] LABS: Alanine Aminotransferase 14 U/L (0-33); Albumin Level 2.3 g/dL (3.5-5.2); Alkaline Phosphatase 90 U/L (35-105); Anion Gap 11.6 (5-19); Aspartate Amino Transferase 18 U/L (0-32); Blood Urea Nitrogen 11 mg/dL (8-23); Calcium 7.4 mg/dL (8.5-10.5); Carbon Dioxide 17 mmol/L (22-29); Chloride 116 mmol/L (98-107); Creatinine Clr Calc Pharmacy 54.3017; Globulin 1.6 g/dL (1.3-4.6); Glucose 97 mg/dL (65-115); Osmolality Calculated 291 mOsm/kg (285-295); Potassium 3.6 mmol/L (3.5-5.1); Sodium 141 mmol/L (136-145); Total Protein 3.9 g/dL (6.6-8.7)
[2024-12-09] MEDS: metoclopramide 5 mg/mL SDV 2 mL IVP (05:41)
--- NOTE | 2024-12-09 05:56 | PC.NURSE ---
Patient NPO at midnight for gastric emptying study this morning. PO meds after midnight were held.
[2024-12-09 07:15] VITALS: BP 121/70; PULSE 83; RESP 16; TEMP 36.4; O2SAT 97
[2024-12-09 10:47] VITALS: BP 104/63; PULSE 89; RESP 17; TEMP 36.9; O2SAT 95
--- NOTE | 2024-12-09 12:08 | P.DS_ITS ---
Discharge Providers Date of Admission: 12/04/24 16:33 Date of Discharge: December 09, 2024 Attending Provider at Admission: Leonie Perez MD Attending Provider at Discharge: Raymon Thomas MD Consults: General surgery. Primary Care Provider: Torin Sandhu MD Diagnoses at Discharge Discharge Diagnosis 1. Weakness generalized: 2. Weight loss, unintentional: 3. History of right breast cancer: 4. History of lymphoma: 5. Acidosis, hyperchloremic: 6. Acute prerenal azotemia: 7. Hypotension due to hypovolemia: 8. Severe dehydration: Reason for Visit Reason for Visit: HTN, Low o2 Brief History: 79-year-old lady with a past medical his tory of lymphoma, currently in remission, treated 6 years ago with chemotherapy. History of breast cancer treated with radiation to the right breast, 2 years ago. As of most recent oncology evaluation, she is in remission with regards to both cancers. She is noted to be malnourished with a low albumin and reported 20 pound weight loss over the last 2 months. 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 multivitamin and other stimulants for appetite - PT OT following Severe diarrhea H/O chronic diarrhea for several years. - no improvement with elimination diet - colonoscopy in Jan 2024 without findings other than diverticulosis, prior Endoscopy - no GI follow us as outpatient as yet. - Culture orders have been placed. Patient had not produced any further stool since admission - reglan started - gastrograffin contrast with delayed transit throught the stomach - EGD without outlet obstruction or mass, contact bleeding noted. Follow up outpatient for biopsy results. Patient with history of lymphoma/breast cancer 6 years and 3 years respectively - Treated with no recurrence - Patient however had much bone marrow suppression and recovering UTI - Abnormal UA on admission with positive leuk esterase, trace ketones - started on ceftriaxone, changed to linezolid 600mg BID for 3 days based on culture Orthostatic hypotension - she is on BB for tachycardia - started on midodrine H/O DVT - IVC filter in place. H/O RA Disposition - attempted GES today, however the patient had nausea/vomiting during exam and it was canceled. Can attempt again as outpatient. - discharge planning for today. - recommend follow up with GI as outpatient. Physical Exam Const: COMMON NORMALS: no acute distress, average body habitus, patient oriented x3 and healthy appearing HENMT: COMMON NORMALS: normocephalic and atraumatic HEAD & SCALP: normocephalic and atraumatic Eye: COMMON NORMALS: Equal, round and reactive pupils present and EOMs intact bilaterally PUPIL: Yes Equal, round and reactive pupils present Neck/C-Spine: COMMON NORMALS: full ROM, no lymphadenopathy, supple and no JVD Cardio: COMMON NORMALS: no JVD, regular rate, regular rhythm, S1 normal heart sound present and S2 normal heart sound present RATE: regular rate RHYTHM: regular rhythm HEART SOUNDS: S1 normal heart sound present and S2 normal heart sound present GI: COMMON NORMALS: Soft to palpation, non-tender and no masses PALPATION: Yes Soft to palpation Neuro: COMMON NORMALS: patient oriented x3, moves all extremities, no focal motor deficits and no sensory deficits noted Discharge Data Studies Completed and Pending Completed Studies During Hospitalization Category Date Time Status CT head wo con* [id number] Stat Cat Scan 12/04/24 12:[address] kidney stone [id number] Stat Cat Scan 12/04/24 15:15 Completed XR KUB portable [id number] Routine Exams 12/06/24 21:00 Completed XR abdomen 1V* [id number] Routine Exams 12/06/24 14:14 Completed XR abdomen 1V* [id number] Routine Exams 12/06/24 18:00 Completed XR abdomen 1V* [id number] Routine Exams 12/07/24 04:00 Completed XR chest 1V portable [id number] Stat Exams 12/04/24 12:23 [place] [id number] Routine Ultrasound 12/08/24 13:15 Completed CV. echo complete* [id number] Stat Ultrasound 12/05/24 17:11 Completed Pending at discharge Category Date Time Status Blood Culture Stat Lab 12/04/24 13:00 Results Helicobacter Pylori AG Stool Routine Lab 12/07/24 04:29 Received Urinalysis Routine Lab 12/08/24 15:41 Uncollected Pathology: Surgical [PTH] Routine Pth 12/07/24 11:21 Received Radiology Impressions Chest X-Ray 12/04/24 12:23 IMPRESSION: Stable chest without acute abnormality. Head CT 12/04/24 12:33 IMPRESSION: 1. No acute intracranial hemorrhage. No edema. 2. Mild atrophy and minimal small vessel disease. 3. Dysplastic LEFT mandibular condyle head. Abdomen/Pelvis CT 12/04/24 15:15 IMPRESSION: Severe gastric distention. Right renal cyst. No urinary tract calculi. Rectal and bladder prolapse with significant urinary bladder distention. No findings of acute hemorrhage or inflammatory process in the abdomen or pelvis. KUB X-Ray 12/06/24 21:00 IMPRESSION: Contrast remains within the stomach. Abdomen X-Ray 12/07/24 04:00 IMPRESSION: 1. Moderate air distension of likely the transverse colon. 2. Radiopaque contrast predominantly within small bowel and possibly a small amount in the ascending colon. No contrast is visualized within the stomach. Venous Duplex 12/08/24 13:15 IMPRESSION: 1. No evidence of deep vein thrombosis. 2. Wall thickening involves the right SFV felt to represent scarring from previous thrombosis Laboratory Results WBC 4.50 10^3/uL (3.29-11.43) 12/09/24 04:58 RBC 2.63 10^6/uL (3.85-5.65) L 12/09/24 04:58 Hgb 8.30 g/dL (11.27-16.99) L 12/09/24 04:58 Hct 25.8 % (36-47) L 12/09/24 04:58 MCV 98.1 fl (85-98) H 12/09/24 04:58 MCH 31.6 pg (27-33) 12/09/24 04:58 MCHC 32.2 g/dL (30-55) 12/09/24 04:58 RDW 17.1 % (12.1-15.1) H 12/09/24 04:58 Plt Count 130 10^3/cmm (157-399) L 12/09/24 04:58 MPV 9.7 fL (7.4-10.4) 12/09/24 04:58 Neut % (Auto) 51.3 % 12/09/24 04:58 Lymph % (Auto) 28.2 % 12/09/24 04:58 [place] % (Auto) 7.3 % 12/09/24 04:58 Eos % (Auto) 12.4 % 12/09/24 04:58 Baso % (Auto) 0.4 % 12/09/24 04:58 Neut # (Auto) 2.30 10^3/uL (1.8-7.7) 12/09/24 04:58 Lymph # (Auto) 1.3 10^3/uL (0.8-4.8) 12/09/24 04:58 [place] # (Auto) 0.3 10^3/uL (0.2-0.9) 12/09/24 04:58 Eos # (Auto) 0.6 10^3/uL (0.0-0.8) 12/09/24 04:58 Baso # (Auto) 0.0 10^3/uL (0.0-0.1) 12/09/24 04:58 Nucleated RBC % (auto) 0 % 12/09/24 04:58 Nucleated RBCs # 0.0 /100WBC 12/09/24 04:58 Sodium 141 mmol/L (136-145) 12/09/24 04:58 Potassium 3.6 mmol/L (3.5-5.1) 12/09/24 04:58 Chloride 116 mmol/L (98-107) H 12/09/24 04:58 Carbon Dioxide 17 mmol/L (22-29) L 12/09/24 04:58 Anion Gap 11.6 (5-19) 12/09/24 04:58 BUN 11 mg/dL (8-23) 12/09/24 04:58 Creatinine 0.8 mg/dL (0.5-0.9) 12/09/24 04:58 GFR Calculation Not Reportable 12/09/24 04:58 Glucose 97 mg/dL (65-115) 12/09/24 04:58 Estimat Average Glucose 77 12/08/24 02:56 Hemoglobin A1c 4.3 % (4.0-6.0) 12/08/24 02:56 Calculated Osmolality 291 mOsm/kg (285-295) 12/09/24 04:58 Lactic Acid 4.1 mmol/L (0.5-2.2) H* 12/04/24 12:29 Lactic Acid (Sepsis) 2.1 mmol/L (0.5-2.2) 12/04/24 15:22 Calcium 7.4 mg/dL (8.5-10.5) L 12/09/24 04:58 Phosphorus 1.7 mg/dL (2.5-4.5) L 12/07/24 03:00 Magnesium 1.7 mg/dL (1.7-2.3) 12/07/24 03:00 Total Bilirubin 0.3 mg/dL (0.15-1.2) 12/09/24 04:58 AST 18 U/L (0-32) 12/09/24 04:58 ALT 14 U/L (0-33) 12/09/24 04:58 Alkaline Phosphatase 90 U/L (35-105) 12/09/24 04:58 Troponin T Baseline 19 ng/L (0-10) H 12/04/24 12:29 Troponin T 120 Minute 15.95 ng/L (0-10) H 12/04/24 14:25 Delta Troponin T -3.05 ABS# (0-10) L 12/04/24 14:25 Troponin T Hi Sens 6Hr 14.83 ng/L (0-10) H 12/04/24 18:25 Troponin T Hi Sens 6Hr Delta -4.17 ng/L (0-12) L 12/04/24 18:25 Total Protein 3.9 g/dL (6.6-8.7) L 12/09/24 04:58 Albumin 2.3 g/dL (3.5-5.2) L 12/09/24 04:58 Globulin 1.6 g/dL (1.3-4.6) 12/09/24 04:58 TSH 10.42 uIU/mL (0.27-4.20) H 12/08/24 02:56 Free T4 1.24 ng/dL (0.82-1.77) 12/08/24 02:56 Free T3 1.7 PG/ML (2.0-4.4) L 12/08/24 02:56 Random Cortisol 6.68 ug/dL (2.47-19.5) 12/08/24 02:56 Urine Color Yellow (Yellow) 12/04/24 14:40 Urine Appearance Cloudy (CLEAR) A 12/04/24 14:40 Urine pH 5.0 (5-7) 12/04/24 14:40 Ur Specific [place] 1.016 (1.005-1.030) 12/04/24 14:40 Urine Protein 1+ (Negative) A 12/04/24 14:40 Urine Glucose (UA) Negative (Normal) 12/04/24 14:40 Urine Ketones Trace (Negative) 12/04/24 14:40 Urine Blood 3+ (Negative) A 12/04/24 14:40 Urine Nitrate Negative (Negative) 12/04/24 14:40 Urine Bilirubin Negative (Negative) 12/04/24 14:40 Urine Urobilinogen 1.0 mg/dL (Negative) 12/04/24 14:40 Ur Leukocyte Esterase 2+ (Negative) A 12/04/24 14:40 Urine RBC 40-50 /hpf (0-2) H 12/04/24 14:40 Urine WBC 15-25 /hpf (0-5) H 12/04/24 14:40 Ur Squamous Epith Cells 0-4 /hpf (0-5) H 12/04/24 14:40 Amorphous Sediment Not Reportable 12/04/24 14:40 Urine Bacteria Trace /hpf (NONE) 12/04/24 14:40 Hyaline Casts 5-10 /lpf H 12/04/24 14:40 Adenovirus (PCR) Not detected (NOT DETECT) 12/08/24 07:00 C. pneumoniae DNA (PCR) Not detected (NOT DETECT) 12/08/24 07:00 C. difficile (PCR) Negative (Negative) 12/06/24 21:30 Coronavirus 229E (PCR) Not detected (NOT DETECT) 12/08/24 07:00 Human Metapneumovir PCR Not detected (NOT DETECT) 12/08/24 07:00 Influenza A (H1) PCR Not detected (NOT DETECT) 12/08/24 07:00 Influ A (H1/09) PCR Not detected (NOT DETECT) 12/08/24 07:00 Influenza A (H3) PCR Not detected (NOT DETECT) 12/08/24 07:00 Influenza Type A (PCR) Not detected (NOT DETECT) 12/08/24 07:00 Influenza Type B (PCR) Not detected (NOT DETECT) 12/08/24 07:00 M. pneumoniae (PCR) Not detected (NOT DETECT) 12/08/24 07:00 Parainfluenza 1 (PCR) Not detected (NOT DETECT) 12/08/24 07:00 Parainfluenza 2 (PCR) Not detected (NOT DETECT) 12/08/24 07:00 Parainfluenza 3 (PCR) Not detected (NOT DETECT) 12/08/24 07:00 Parainfluenza 4 (PCR) Not detected (NOT DETECT) 12/08/24 07:00 RSV Type A (PCR) Not detected (NOT DETECT) 12/08/24 07:00 RSV Type B (PCR) Not detected (NOT DETECT) 12/08/24 07:00 Entero/Rhino (PCR) Not detected (NOT DETECT) 12/08/24 07:00 SARS-CoV-2 (PCR) Not detected (NOT DETECT) 12/08/24 07:00 Blood Type A Negative 12/08/24 13:36 Rho(D) Type Rh negative 12/08/24 13:36 Antibody Screen Negative 12/08/24 13:36 Crossmatch See Detail 12/08/24 13:36 Vitals Last Vital Signs Temp 98.5 F 12/09/24 10:47 Pulse 89 12/09/24 10:47 Resp 17 12/09/24 10:47 BP 104/63 12/09/24 10:47 Pulse Ox 95 12/09/24 10:47 O2 Del Method Room Air 12/09/24 10:47 O2 Flow Rate 10 12/07/24 11:22 Discharge Plan Discharge Patient Disposition: Home Health Service Condition: Stable Prescriptions: New metoprolol tartrate 25 mg Tablet 12.5 mg PO DAILY Qty: 60 2RF midodrine 5 mg Tablet 10 mg PO TID Qty: 90 2RF megestrol 400 mg/10 mL (40 mg/mL) Suspension 400 mg PO DAILY Qty: 30 2RF multivitamin with folic acid [Thera] 400 mcg Tablet 1 tab PO DAILY Qty: 30 2RF linezolid 600 mg Tablet 600 mg PO Q12H Qty: 6 0RF Continued spironolactone 25 mg tablet 25 mg PO DAILY Qty: 90 3RF hydrocodone-acetaminophen 7.5-325 mg tablet 1 tab PO BID PRN (Reason: pain) 30 Days Qty: 60 0RF metoclopramide HCl 10 mg tablet 10 mg PO Q6H PRN (Reason: nausea and vomiting) Qty: 60 1RF cholestyramine (with sugar) 4 gram powder See Rx Instructions .ROUTE .COMPLEX Qty: 378 3RF Dose Instruction: take TWO grams BY MOUTH TWICE DAILY with A meal; AVOID other meds WITHIN one hour BEFORE OR 4-6 hours AFTER DOSE Rx Instructions: Take TWO grams BY MOUTH TWICE DAILY with A meal; AVOID other meds WITHIN one hour BEFORE OR 4-6 hours AFTER DOSE. promethazine 25 mg tablet 25 mg PO Q8H PRN (Reason: Nausea) Qty: 30 3RF diphenoxylate-atropine 2.5-0.025 mg tablet 1 tab PO BID PRN (Reason: diarrhea) 30 Days Qty: 60 2RF triamcinolone acetonide 0.1 % cream 1 applic topical DAILY PRN (Reason: Skin Irritation) Qty: 80 1RF ferrous gluconate 324 mg (37.5 mg iron) tablet 324 mg PO BID Qty: 60 0RF duloxetine 30 mg capsule,delayed release(DR/EC) 30 mg PO DAILY Qty: 30 4RF pregabalin 150 mg capsule 150 mg PO DAILY Qty: 60 5RF furosemide 40 mg tablet 40 mg PO DAILY PRN (Reason: swelling) potassium chloride 10 mEq capsule, extended release 20 meq PO BID levothyroxine 125 mcg tablet 125 mcg PO DAILY diclofenac sodium 75 mg tablet,delayed release (DR/EC) 75 mg PO DAILY PRN (Reason: Pain) Xarelto 10 mg tablet 10 mg PO DAILY lidocaine 5 % ointment 1 applic topical DAILY Changed pantoprazole 40 mg tablet,delayed release (DR/EC) 40 mg PO BID Qty: 60 2RF Discontinued metoprolol tartrate 25 mg tablet 25 mg PO DAILY Discharge Order = DC NOW: Discharge Order (Routine); Ordered 12/09/24 Ordered By: Raymon Thomas Referrals: [facility] [Outside] Torin Sandhu MD [Primary Care Provider, Family Practice] - 12/24/24 11:00 am Patient Instructions: GI Post Discharge Instructions w/ Anesthesia, Opioid Safety, Patient Portal & De[place]ra Instructions Discharge Attestations Time Spent in Discharge Care*: greater than 30 min Specific Discharge Activities: educating patient, educating and/or supporting family/caregiver, discussing with pcp/other providers, discussing with manager of case management/social workers/dc planners, documenting/other paperwork and evaluating patient/reviewing data Quality Metrics Clinical Quality Measures [ No reported AMI, CVA or VTE this stay] Coding Level of Care Code Acute Code for Chg Fwd Diagnoses Weakness generalized R53.1 Weight loss, unintentional R63.4 History of right breast cancer Z85.3 History of lymphoma Z85.72 Acidosis, hyperchloremic E87.29 Acute prerenal azotemia N19 Hypotension due to hypovolemia E86.1 Severe dehydration E86.0
[2024-12-09] MEDS: saliva stimulant spray 30 mL Btl 1 SPRAY MUCOUS MEM (13:02)
--- NOTE | 2024-12-09 13:36 | PC.SOCIAL ---
*IMM * Patient received copy of IMM. Initialed and dated in chart.
--- NOTE | 2024-12-09 14:15 | PC.NURSE ---
Patient is A&Ox3. Respirations even and non-labored on room air. Discussed discharge instruction with patient and who verbalized understanding of new medications and to not take the Spironolactone because it could drop her blood pressure. The Midodrine is to help keep her blood pressure up. Patient wheel chaired to private car.
[2024-12-09 14:53] VITALS: BP 110/70; PULSE 85; RESP 16; TEMP 36.9; O2SAT 94
== END 2024-12-09 14:12 | disposition home health service (06) | DRG 378 ==
LOC: ER 19:07 → MEDSURG 20:01
PROVIDERS: Specialist; Student in an Organized Health Care Education/Training Program; Admitting Provider Internal Medicine; Emergency Provider Family Medicine; PCP Family Medicine; Visit Provider Internal Medicine
PROC: 0DJ08ZZ Inspection of Upper Intestinal Tract, Via Natural or Artificial Opening Endoscopic (ICD-10-PCS; principal; 2024-12-07 10:30)
DX: K29.71 Gastritis, unspecified, with bleeding (principal); C85.9A Non-Hodgkin lymphoma, unspecified, in remission; D84.9 Immunodeficiency, unspecified; N17.9 Acute kidney failure, unspecified; N39.0 Urinary tract infection, site not specified; E44.0 Moderate protein-calorie malnutrition; K22.10 Ulcer of esophagus without bleeding; E87.29 Other acidosis; I95.1 Orthostatic hypotension; E86.1 Hypovolemia; Z85.3 Personal history of malignant neoplasm of breast; E86.0 Dehydration; G72.9 Myopathy, unspecified; B95.2 Enterococcus as the cause of diseases classified elsewhere; Z68.22 Body mass index [BMI] 22.0-22.9, adult; K58.0 Irritable bowel syndrome with diarrhea; Z88.0 Allergy status to penicillin; Z86.718 Personal history of other venous thrombosis and embolism; Z90.11 Acquired absence of right breast and nipple; Z90.721 Acquired absence of ovaries, unilateral; Z90.710 Acquired absence of both cervix and uterus; Z90.49 Acquired absence of other specified parts of digestive tract; Z80.3 Family history of malignant neoplasm of breast; I10 Essential (primary) hypertension; E03.9 Hypothyroidism, unspecified; F32.A Depression, unspecified; K21.9 Gastro-esophageal reflux disease without esophagitis; K44.9 Diaphragmatic hernia without obstruction or gangrene; R00.0 Tachycardia, unspecified; M06.9 Rheumatoid arthritis, unspecified; G62.9 Polyneuropathy, unspecified; Z79.01 Long term (current) use of anticoagulants; Z92.21 Personal history of antineoplastic chemotherapy; Z92.3 Personal history of irradiation
CPT/HCPCS: 36415; 36430; 43239; 70450; 71045; 74018; 74176; 80053; 81001; 82274; 82533; 82728; 82746; 83010; 83036; 83540; 83550; 83605; 83615; 83735; 84100; 84439; 84443; 84481; 84484; 85014; 85018; 85025; 85045; 86850; 86900; 86920; 87040; 87077; 87086; 87186; 87338; 87486; 87493; 87581; 87633; 88305; 88342; 93005; 93306; 93970; 96361; 96372; 96374; 99285; J0696; J1644; J2371; J2405; J2704; J2765; J7030; J7070; J9999; P9016; Q9963

== ENCOUNTER 2024-12-19 14:25 | Oncology outpatient (recurring) (ONCR) | payer MEDICARE, SELFPAY ==
[2024-12-19 14:46] LABS: Hematocrit 26.3 % (36-47); Hemoglobin 8.50 g/dL (11.27-16.99); Mean Corpuscular HGB Conc 32.3 g/dL (30-55); Mean Corpuscular Hemoglobin 32.1 pg (27-33); Mean Corpuscular Volume 99.2 fl (85-98); Nucleated Red Blood Cells % 0 %; Platelet Count 93 10^3/cmm (157-399); Red Blood Count 2.65 10^6/uL (3.85-5.65); White Blood Count 4.21 10^3/uL (3.29-11.43)
[2024-12-19 15:07] LABS: Alanine Aminotransferase 16 U/L (0-33); Albumin Level 2.7 g/dL (3.5-5.2); Alkaline Phosphatase 86 U/L (35-105); Anion Gap 13.9 (5-19); Aspartate Amino Transferase 21 U/L (0-32); Blood Urea Nitrogen 19 mg/dL (8-23); Calcium 7.4 mg/dL (8.5-10.5); Carbon Dioxide 19 mmol/L (22-29); Chloride 115 mmol/L (98-107); Ferritin 202 ng/mL (15-150); Globulin 2.2 g/dL (1.3-4.6); Glucose 98 mg/dL (65-115); Iron 48 ug/dL (37-145); Osmolality Calculated 300 mOsm/kg (285-295); Potassium 3.9 mmol/L (3.5-5.1); Sodium 144 mmol/L (136-145); Total Iron Binding Capacity 166 mcg/dl; Total Protein 4.9 g/dL (6.6-8.7); Unsaturated Iron Binding 118 ug/dL (112-347)
[2024-12-19 15:22] LABS: Vitamin B12 481 pg/mL (232-1245)
== END 2025-01-03 23:59 | disposition home or self-care (01) ==
PROVIDERS: Internal Medicine; PCP Family Medicine; Visit Provider Nurse Practitioner Family
DX: Z08 Encounter for follow-up examination after completed treatment for malignant neoplasm (principal); Z85.3 Personal history of malignant neoplasm of breast; Z85.72 Personal history of non-Hodgkin lymphomas; N18.9 Chronic kidney disease, unspecified; D63.1 Anemia in chronic kidney disease; K31.9 Disease of stomach and duodenum, unspecified
CPT/HCPCS: 36415; 80053; 82607; 82728; 82746; 83010; 83540; 83550; 83615; 85025; 85045; 99213

== ENCOUNTER 2025-01-13 09:32 | Inpatient (IN) | payer MEDICARE, SELFPAY ==
--- OUTSIDE RECORDS SUMMARY | 2025-01-08 15:00 | XMS_ITS | Encounter Summary ---
Author Organization [facility] Address [address] [place] [address] Care Team Providers Care Bakery Team Member Name Role Phone Torin Sandhu MD Primary Care Provider [phone] Reason for Visit * Eval and Treat (Routine) - Closed Specialty Diagnoses / Procedures Referred By Lima t Referred To Contact Gastroenterology Diagnoses Diarrhea, unspecified type Procedures AL OFFICE/OUTPATIENT ESTABLISHED MOD MDM 30 MIN AL OFFICE/OUTPATIENT NEW MODERATE MDM 45 MINUTES Cassandra Wray MD [address] [place] [address] Phone: tel: fax: Cherelle Montes De Oca DO [address] [address] Phone: tel: fax: Referral ID Status Reason Start Date Expiration Date Visits Requested Visits Authorized [id number] Closed Performing Department to Schedule 12/11/2024 12/11/2025 1 1 Encounter Details Date Type Department Care Team (Late st Contact Info) Description 01/08/2025 3:00 PM [employer] Telephone Check Up [facility] [address] [facility] [address] [place] [address] Alejandra Briggs FNP [address] [facility] [address] [place] [address] Chronic diarrhea (Primary Dx) Social History Tobacco Use Types [...] on file Legal Sex Female 7:43 AM [employer] Gender Identity Not on file Sexual Orientation Not on file documented as of this encounter Last Filed Vital Signs Vital Sign Reading Time Taken Comments Blood Pressure - - Pulse - - Temperature - - Respiratory Rate - - Oxygen Saturation - - Inhaled Oxygen Concentration - - Weight 60.8 kg (134 lb) 01/08/2025 2:35 PM [employer] Height 167.6 cm (5' 6 ) 01/08/2025 2:35 PM [employer] Body Mass Index 21.63 01/08/2025 2:35 PM [employer] documented in this encounter Plan of Treatment Not on file documented as of this encounter Visit Diagnoses Diagnosis Chronic diarrhea- Primary Diarrhea documented in this encounter Care Teams Bakery Team Member Relationship Specialty Start Date End Date Torin Sandhu MD [address] [address] PCP - General 04/10/08 documented as of this encounter
[2025-01-13] VITALS (90 sets, daily range): BP systolic 67–131; BP diastolic 46–87; PULSE 72–136; RESP 11–28; TEMP 34.8–35.7; O2SAT 73–100; BMI 23.3
--- NOTE | 2025-01-13 09:39 | XR_ITS ---
WS: [id number] Exam: XR chest 1V portable [id number] Date/Time of Exam: 01/13/2025 9:43 AM Reason For Exam: dyspnea/cough Comparison 12/04/2024. Lungs are fully expanded and clear. Normal cardiomediastinal silhouette. Regional bony structures are intact. Surgical clips along the RIGHT axilla. Degenerative change and mild levoscoliosis of the T-spine. XR/XR chest 1V portable [id number] IMPRESSION: 1. No acute cardiopulmonary finding.
--- NOTE | 2025-01-13 09:41 | W.ED.GENADLT ---
HPI - General Adult General: Chief complaint: Fall Stated complaint: weakness - confusion Time Seen by Provider: 01/13/25 09:38 History of Present Illness: 79-year-old female presents emergency room with weakness. She fell at home was brought in by EMS after she fell and could not get up from her description is a ground-level mechanical fall she denies striking her head she did not hurt anything she denies neck back or hip pain no arm or wrist pain. No knee or ankle pain. She was unable to get up and called EMS. She had fallen just prior to calling EMS she did not have an extended period of time on the ground. She has had chronic diarrhea which has been going on recently she denies any melena or hematochezia. No chest pain no shortness of breath no difficulty with urination pain or burning or frequency. She has not had any vomiting. 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 Associated symptoms: Reports malaise; Deny chest pain, dyspnea or rash Related Data Home Medications ?Medication ?Instructions ?Recorded ?Confirmed diclofenac sodium 75 mg 75 mg PO DAILY PRN Pain 12/04/24 01/13/25 tablet,delayed release furosemide 40 mg tablet 40 mg PO DAILY PRN swelling 12/04/24 01/13/25 levothyroxine 125 mcg tablet 125 mcg PO DAILY 12/04/24 01/13/25 lidocaine 5 % topical ointment 1 applic topical DAILY PRN Pain 12/04/24 01/13/25 rivaroxaban 10 mg tablet (Xarelto) 10 mg PO DAILY 12/04/24 01/13/25 colestipol 1 gram tablet 1 g PO BID 01/13/25 01/13/25 potassium chloride 10 mEq 20 meq PO BID 01/13/25 01/13/25 capsule,extended release spironolactone 25 mg tablet 25 mg PO DAILY 01/13/25 01/13/25 Previous Rx's ?Medication ?Instructions ?Recorded hydrocodone 7.5 mg-acetaminophen 1 tab PO BID PRN pain 30 days #60 06/12/24 325 mg tablet tabs metoclopramide HCl 10 mg tablet 10 mg PO Q6H PRN nausea and 07/30/24 vomiting #60 tabs cholestyramine (with sugar) 4 gram See Rx Instructions .Route 08/06/24 oral powder .COMPLEX #378 grams promethazine 25 mg tablet 25 mg PO Q8H PRN Nausea #30 tabs 08/08/24 diphenoxylate-atropine 2.5 1 tab PO BID PRN diarrhea 30 days 09/09/24 mg-0.025 mg tablet #60 tabs triamcinolone acetonide 0.1 % 1 applic topical DAILY PRN Skin 09/30/24 topical cream Irritation #80 grams duloxetine 30 mg capsule,delayed 30 mg PO DAILY #30 caps 10/22/24 release pregabalin 150 mg capsule 150 mg PO DAILY #60 caps 10/22/24 megestrol 400 mg/10 mL (40 mg/mL) 400 mg (10 mL) PO DAILY #30 mL 12/09/24 oral suspension metoprolol tartrate 25 mg tablet 12.5 mg (1/2 x 25 mg) PO DAILY #60 12/09/24 tabs midodrine 5 mg tablet 10 mg (2 x 5 mg) PO TID #90 tabs 12/09/24 multivitamin with folic acid 400 1 tab PO DAILY #30 tabs 12/09/24 mcg tablet (Thera) pantoprazole 40 mg tablet,delayed 40 mg PO BID #60 tabs 12/09/24 release ferrous gluconate 324 mg (37.5 mg 324 mg PO BID #60 tabs 12/27/24 iron) tablet Allergies Allergy/AdvReac Type Severity Reaction Status Date / Time clindamycin Allergy chest pain Verified 12/19/24 15:29 Penicillins Allergy rash Verified 12/19/24 15:29 Review of Systems Const: Reports: fatigue and malaise; Denies: fever(s) or chills Card: Denies: chest pain Resp: Denies: dyspnea GI: Denies: abdominal pain : Denies: dysuria, urinary frequency or urinary urgency Musc: Denies: neck pain or back pain Skin/Breast: Denies: rash PFSH ED PFSH: Medical History IBS (irritable bowel syndrome) Hypertension Colitis Hypomagnesemia Normal anion gap metabolic acidosis Diarrhea Dehydration Acute renal failure Hemorrhoids Hypokalemia Diffuse large b-cell lymphoma, lymph nodes of head, face, 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 This occurred last night. On exam today no actual bleeding seen anywhere. Stitch from her vault suspension was again noted today on exam. No granulation tissue was noted on exam. However, due to this intermittent reporting of bleeding, I went ahead and removed the stitch. On removal, the stitch appeared to not be attached to anything other than the vaginal wall. Patient still had a urethral caruncle noted with a small spot adjacent to it which is suspicious for possible bleeding from that area. With her being on the Xarelto, she may have bled from either the caruncle or from the stitch in the vagina. Questions were answered. Follow-up as needed. Surgical History History of endoscopy 08/2022 - Dr. Blanton at [facility]. S/P lumpectomy, right breast (01/27/20) H/O excision of mass H/O colonoscopy 2013 H/O esophagogastroduodenoscopy 2019 History of laparotomy (~1996) left ovarian cystectomy Hx of hysterectomy (~04/08/14) with vaginal repair------- TVH, LSO, Uterosacral ligament suspension, Anterior vaginal repair, Perineorrhaphy, Single incision suburethral sling, Cystoscopy, Lysis of bowel adhesions. 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 Performed by Dr. Remi Musa at [facility] in [place], [place]. Surgical findings: Third degree cystocele, second to third degree uterine prolapse, adhesions of the sigmoid to the left fundal portion of the uterus and to the left ovary, left ovarian cyst present. History of surgery on right wrist (~12/2010) Hx of cholecystectomy (~02/2005) Laparoscopic. Performed by Dr. Blanton at [facility] in [place], [place]. History of bunionectomy (~2001) left H/O ovarian cystectomy (~1996) Left-- Laparotomy Hx of breast biopsy (~1993) 1993-- 1 cyst removed from left breast and 2 cysts removed from right breast. All pathologies were benign. History of tonsillectomy and adenoidectomy (~1952) Family History Grandfather Diabetes Maternal Mother Breast cancer dx at age 45 Denies family history of Colon cancer Ovarian cancer Heart disease Hypercholesteremia Anesthesia complication Bleeding disorder Hypertension Uterine cancer Thyroid disease Stroke Social History Smoking and tobacco/nicotine status: never used tobacco/nicotine Physical Exam Const: GENERAL APPEARANCE: cooperative ORIENTATION/CONSCIOUSNESS: Yes awake, Yes oriented to person, Yes oriented to place and Yes oriented to time HENMT: COMMON NORMALS: normocephalic, atraumatic and hearing grossly normal bilaterally HEAD & SCALP: normocephalic and atraumatic Resp: COMMON NORMALS: normal respiratory effort, No retractions, No use of accessory muscles and clear to auscultation bilaterally AUSCULTATION: clear to auscultation bilaterally Cardio: COMMON NORMALS: regular rate, regular rhythm and No murmurs present (Cardio) RATE: regular rate RHYTHM: regular rhythm GI: COMMON NORMALS: Soft to palpation and No hepatosplenomegaly present AUSCULTATION: Yes normoactive bowel sounds PALPATION: Yes Soft to palpation, No Tenderness to palpation present (GI), No Guarding due to palpation present (GI) and Yes No hepatosplenomegaly present Extremity: COMMON NORMALS: normal to inspection, capillary refill normal, no clubbing, cyanosis or edema, no calf tenderness and no pedal edema Neuro: SENSORIUM/ORIENTATION: Yes oriented to person, Yes oriented to place and Yes oriented to time Skin: COMMON NORMALS: no rashes or lesions noted GENERAL SKIN EXAM: no rashes or lesions noted Course Vital Signs: Vital signs: Vital Signs Temperature 94.6 F L 01/13/25 09:52 Pulse Rate 76 01/13/25 12:27 Respiratory Rate 18 01/13/25 12:15 Blood Pressure 105/53 01/13/25 12:15 Pulse Oximetry 99 01/13/25 12:15 Oxygen Delivery Me thod Room Air 01/13/25 12:12 MDM - General Adult Medical Decision Making Lactic is elevated. We did give her fluid sepsis bolus and started ceftriaxone. Suspect lactic acid is elevated due to her acute kidney injury and fluid volume depletion. We treated her hyperkalemia as well. Cultures have been done discussed with hospitalist will admit to ICU. Medical Records I reviewed the patient's medical records. Lab Data I reviewed the patient's lab results. 01/13/25 09:50 01/13/25 10:55 Radiology Impressions Chest X-Ray 01/13/25 09:39 IMPRESSION: 1. No acute cardiopulmonary finding. Laboratory Results WBC 12.00 10^3/uL (3.29-11.43) H 01/13/25 09:50 RBC 2.96 10^6/uL (3.85-5.65) L 01/13/25 09:50 Hgb 9.50 g/dL (11.27-16.99) L 01/13/25 09:50 Hct 31.2 % (36-47) L 01/13/25 09:50 MCV 105.4 fl (85-98) H 01/13/25 09:50 MCH 32.1 pg (27-33) 01/13/25 09:50 MCHC 30.4 g/dL (30-55) 01/13/25 09:50 RDW 17.2 % (12.1-15.1) H 01/13/25 09:50 Plt Count 229 10^3/cmm (157-399) 01/13/25 09:50 MPV 10.4 fL (7.4-10.4) 01/13/25 09:50 Lymph % (Auto) Not Reportable 01/13/25 09:50 Petroleum % (Auto) Not Reportable 01/13/25 09:50 Lymph # (Auto) Not Reportable 01/13/25 09:50 Petroleum # (Auto) Not Reportable 01/13/25 09:50 Total Counted 100 (0-100) 01/13/25 09:50 Atypical Lymphs % 0.0 % (0-5) 01/13/25 09:50 Absolute Neutrophils 9.0 10^3/cmm (1.4-6.5) H 01/13/25 09:50 Segmented Neutrophils 42 % 01/13/25 09:50 Band Neutrophils 33.0 % 01/13/25 09:50 Absolute Lymphocytes 2.3 10^3/cmm (1.2-3.4) 01/13/25 09:50 Lymphocytes (Manual) 19 % 01/13/25 09:50 Monocytes (Manual) 5.0 % 01/13/25 09:50 Absolute Monocytes 0.6 10^3/cmm (0.1-0.6) 01/13/25 09:50 Eosinophils (Manual) 1 % 01/13/25 09:50 Absolute Eosinophils 0.1 10^3/cmm (0.0-0.7) 01/13/25 09:50 Basophils (Manual) 0.0 % 01/13/25 09:50 Absolute Basophils 0.0 10^3/cmm (0.0-0.2) 01/13/25 09:50 Platelet Estimate Normal (Normal) 01/13/25 09:50 Poikilocytosis 1+ H 01/13/25 09:50 Anisocytosis 1+ H 01/13/25 09:50 Macrocytosis 1+ H 01/13/25 09:50 Sodium 138 mmol/L (136-145) 01/13/25 10:55 Potassium 7.4 mmol/L (3.5-5.1) H* 01/13/25 10:55 Chloride 117 mmol/L (98-107) H 01/13/25 10:55 Carbon Dioxide 11 mmol/L (22-29) L 01/13/25 10:55 Anion Gap 17.4 (5-19) 01/13/25 10:55 BUN 44 mg/dL (8-23) H 01/13/25 10:55 Creatinine 2.2 mg/dL (0.5-0.9) H 01/13/25 10:55 GFR Calculation Not Reportable 01/13/25 10:55 Glucose 112 mg/dL (65-115) 01/13/25 10:55 POC Glucose 81 mg/dL (70-110) 01/13/25 11:57 Calculated Osmolality 298 mOsm/kg (285-295) H 01/13/25 10:55 Lactic Acid 3.5 mmol/L (0.5-2.2) H 01/13/25 09:50 Calcium 8.1 mg/dL (8.5-10.5) L 01/13/25 10:55 Magnesium 1.7 mg/dL (1.7-2.3) 01/13/25 10:55 Total Bilirubin 0.5 mg/dL (0.15-1.2) 01/13/25 10:55 AST 11 U/L (0-32) 01/13/25 10:55 ALT 9 U/L (0-33) 01/13/25 10:55 Alkaline Phosphatase 133 U/L (35-105) H 01/13/25 10:55 Creatine Kinase 17 U/L (26-192) L 01/13/25 10:55 Total Protein 4.9 g/dL (6.6-8.7) L 01/13/25 10:55 Albumin 2.8 g/dL (3.5-5.2) L 01/13/25 10:55 Globulin 2.1 g/dL (1.3-4.6) 01/13/25 10:55 Urine Color Dark yellow (Yellow) A 01/13/25 10:10 Urine Appearance Clear (CLEAR) 01/13/25 10:10 Urine pH 5.0 (5-7) 01/13/25 10:10 Ur Specific Dickinson 1.017 (1.005-1.030) 01/13/25 10:10 Urine Protein Trace (Negative) A 01/13/25 10:10 Urine Glucose (UA) Negative (Normal) 01/13/25 10:10 Urine Ketones Negative (Negative) 01/13/25 10:10 Urine Blood Negative (Negative) 01/13/25 10:10 Urine Nitrate Negative (Negative) 01/13/25 10:10 Urine Bilirubin 1+ (Negative) H 01/13/25 10:10 Urine Urobilinogen 0.2 mg/dL (Negative) 01/13/25 10:10 Ur Leukocyte Esterase Trace (Negative) A 01/13/25 10:10 Urine RBC 0-2 /hpf (0-2) 01/13/25 10:10 Urine WBC 0-5 /hpf (0-5) 01/13/25 10:10 Ur Squamous Epith Cells 6-10 /hpf (0-5) 01/13/25 10:10 Amorphous Sediment Not Reportable 01/13/25 10:10 Urine Bacteria None seen /hpf (NONE) 01/13/25 10:10 Hyaline Casts 28.94 /lpf 01/13/25 10:10 Coarse Granular Casts 0-4 /lpf H 01/13/25 10:10 All radiology interpretation(s) finalized by discharge EKG Data EKG 1: I personally reviewed and interpreted this EKG as follows: Prior EKG tracings: available for review Interpretation: EKG 1110 2024-12-04 sinus rhythm rate of 88 NH interval 164 QTc [address]. No acute ST changes noted. No ST elevation. Compared to EKG 12/04/2024 no significant change Computer generated interpretation: Chest X-Ray 01/13/25 09:39 IMPRESSION: 1. No acute cardiopulmonary finding. 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
--- OUTSIDE RECORDS SUMMARY | 2025-01-13 09:52 | XMS_ITS | Clinical Summary ---
Author Organization [facility] Address [address] Attn: Epic [place] [address] Care Team Providers Care Data Report Analyst Name Role Phone Torin Sandhu MD Primary Care Provider [phone] Allergies Active Allergy Reactions Criticality Noted Date Comments Clindamycin Shortness of Breath/Wheezing High 2016 Penicillins Rash Low 03/28/2013 Medications lidocaine-pril ocaine (EMLA) 2.5-2.5 % Cream Apply to affected area see administration instructions Apply tid for itching. 30 Gram 4 08/26/19 17 Active aspirin (ECOTRIN EC) 81 mg Tablet, Delayed Release (E.C.) Take 81 mg by mouth daily. 12/31/19 15 Active potassium chloride (Klor-Con 10) 10 mEq Extended Release tablet 08/02/19 17 Active mometasone (ELOCON) 0.1 % Cream 08/20/19 17 Active rivaroxaban 20 mg tablet Take 20 [...] (ZOFRAN ODT) 4 mg Tablet, Rapid Dissolve 03/29/19 Active nystatin (MYCOSTATIN) 100,000 unit/mL suspension 06/21/19 Active methenamine hippurate (HIPREX) 1 gram Tablet 06/09/19 Active ibandronate 150 mg tablet Take by mouth. A ctive exemestane (AROMASIN) 25 mg tablet 05/03/19 Active diphenoxylate- atropine 2.5 mg-0.025 mg tablet TAKE 2 TABLETS BY MOUTH FOUR TIMES DAILY NEEDED FOR DIARRHEA 12/03/19 Active Cholecalcifero l, Vitamin D3, 50 mcg (2,000 unit) Capsule 5,000 Units. Act domenica anastrozole (ARIMIDEX) 1 mg tablet Take 1 mg by mouth daily. 05/13/19 Active multivitamin (DAILY-ALONDRA) tablet Active furosemide (LASIX) 40 mg tablet Take 1 Tablet (40 mg) by mouth daily. 30 Tablet 06/08/19 25 Active spironolactone (ALDACTONE) 25 mg tablet Take 1 Tablet (25 mg) by mouth daily. 30 Tablet 06/08/19 25 Active zinc OXIDE-cod liver oil (DESITIN) 40 % Paste Apply to affected area 2 times daily. Coccyx- Wash with soap and water, pat dry. Apply maximum strength Desitin BID and PRN as needed. 454 Gram 06/07/19 25 Active diclofenac sodium (VOLTAREN) 75 mg Tablet, Delayed Release (E.C.) 75 mg. 01/07/20 25 Active metoclopramide HCl (REGLAN) 10 mg tablet 10 mg. 12/25/19 25 Active DULoxetine (CYMBALTA) 30 mg Capsule, Delayed Release(E.C.) Take 1 Capsule by mouth daily. 12/26/19 25 Active Tab-A-Alondra 400 mcg Tablet tablet Take 1 Tablet by mouth daily. 01/07/20 25 Active ferrous gluconate 324 mg (37.5 mg iron) Tablet Take 1 Tablet by mouth 2 times daily. 12/28/19 25 Active midodrine (PROAMATINE) 5 mg tablet Take 2 Tablets by mouth 3 times daily. 01/07/20 25 Active promethazine (PHENERGAN) 25 mg tablet Take 25 mg by mouth every 8 hours as needed for Nausea. 08/09/19 25 Active colestipoL (Colestid) 1 gram tabletIndicati ons:Chronic diarrhea Take 1 Tablet (1 Gram) by mouth 2 times daily. 60 Tablet 2 01/11/20 25 Active Cholestyramine -Sucrose 4 gram Powder 06/28/19 17 025 Discontinu ed(Alterna te therapy prescribed ) Active Problems Problem Noted Date Diagnosed Date [...] Encounters Date Type Department Care Team Description 01/09/2025 Telephone [facility] [address] Alejandra Briggs FNP Change in medication 01/08/2025 3:00 PM MOLDING AND TRIM INSTALLER Telephone Check Up [facility] [address] Alejandra Briggs FNP Chronic diarrhea (Primary Dx) 01/08/2025 Telephone [facility] [address] Alejandra Briggs FNP Diarrhea 12/11/2024 Orders Only [facility] [address] Cassandra Collazo MD Diarrhea, unspecified type (Primary Dx) 12/03/2024 External Device Data ST[facility] ABSTRACTION Provider, [...] on file Legal Sex 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 Gender Identity Not on file Sexual Orientation Not on file Last Filed Vital Signs Vital Sign Reading Time Taken Comments Blood Pressure 119/81 06/06/2024 12:40 PM CDT Pulse 88 06/06/2024 12:40 PM CDT Temperature 36.6 C (97.8 F) 06/06/2024 12:40 PM CDT Respiratory Rate 18 06/06/2024 12:40 PM CDT Oxygen Saturation 91% 06/06/2024 12:40 PM CDT Inhaled Oxygen Concentration - - Weight 60.8 kg (134 lb) 01/08/2025 2:35 PM MOLDING AND TRIM INSTALLER Height 167.6 cm (5' 6 ) 01/08/2025 2:35 PM MOLDING AND TRIM INSTALLER Body Mass Index 21.63 01/08/2025 2:35 PM MOLDING AND TRIM INSTALLER Plan of Treatment Health Maintenance Due Date [...] ENDOSCOPY, COLON, SCREENING Routine 01/09/2024 11:33 AM MOLDING AND TRIM INSTALLER from Last 3 Months or Most Recently Relevant to Health Maintenance Results * ENDOSCOPY, COLON, SCREENING (01/09/2024 11:33 AM MOLDING AND TRIM INSTALLER) us Abstract Provider GI PROCEDURE ORDERABLES Final Result from Last 3 Months or Most Recently Relevant to Health Maintenance Insurance [facility] Advance Directives For more information, please contact: [phone] * Full Code (Latest Code Status on File) Date Activated Date Inactivated Comments 05/31/2024 2:22 AM 06/06/2024 7:12 PM * Full Code Date Activated Date Inactivated Comments 07/14/2022 2:18 PM 07/14/2022 4:41 PM Care Teams Data Report Analyst Relationship Specialty Start Date End Date Torin Sandhu MD [address] [facility] [address] [place] [address] [facility] - General 04/10/08
--- OUTSIDE RECORDS SUMMARY | 2025-01-13 09:52 | XMS_ITS | Encounter Summary ---
Author Organization [facility] Address [address] [place] [address] Care Team Providers Care Management Professional Name Role Phone Torin Sandhu MD Primary Care Provider [phone] Encounter Details Date Type Department Care Team (Latest Contact Info) Description 05/11/2006 [facility] [address] [place] [address] Nakul Carson MD NO ADDRESS ON FILE Other Atopic Dermatitis and Related Conditions (Primary Dx) Social History Tobacco Use Types Packs/Day Years Used Date Smoking Tobacco: Never Assessed Comments Unknown Sex and Gender Information Value Date Recorded Sex Assigned at Not on file 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
--- OUTSIDE RECORDS SUMMARY | 2025-01-13 09:52 | XMS_ITS | Encounter Summary ---
Author Organization [facility] Address [address] [place] [address] Care Team Providers Care Central Office Equipment Engineer Name Role Phone Torin Sandhu MD Primary Care Provider [phone] Encounter Details Date Type Department Care Team (Latest Contact Info) Description 06/12/2006 [facility] [address] [place] [address] Nakul Carson MD NO ADDRESS ON FILE Other Atopic Dermatitis and Related Conditions (Primary Dx); Actinic Keratosis; Other Seborrheic Keratosis Social History Tobacco Use Types Packs/Day Years Used Date Smoking Tobacco: Never Assessed Comments Unknown Sex and Gender Information Value Date Recorded Sex Assigned at Not on file 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
--- OUTSIDE RECORDS SUMMARY | 2025-01-13 09:52 | XMS_ITS | Encounter Summary ---
Author Organization [facility] Address [address] [place] [address] Care Team Providers Care Attending Radiologist Name Role Phone Torin Sandhu MD Primary Care Provider [phone] Encounter Details Date Type Department Care Team (Latest Contact Info) Description 11/13/2002 Outpatient Historical [facility] Mingo Herrera MD [address], [place] [id number] Benign raymond skin trunk (Primary Dx) Social History Tobacco Use Types Packs/Day Years Used Date Smoking Tobacco: Never Assessed Comments Unknown Sex and Gender Information Value Date Recorded Sex Assigned at Not on file 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
--- OUTSIDE RECORDS SUMMARY | 2025-01-13 09:52 | XMS_ITS | Encounter Summary ---
Author Organization [facility] Address [address] [place] [address] Care Team Providers Care Analyst Market Intelligence Name Role Phone Torin Sandhu MD Primary Care Provider [phone] Encounter Details Date Type Department Care Team (Latest Contact Info) Description 11/20/2002 Outpatient Historical [facility] Mingo Herrera MD [address] [place], [place] [id number] Cervical spondylosis (Primary Dx); ATTEN-SURG DRESSNG/SUTUR Social History Tobacco Use Types Packs/Day Years Used Date Smoking Tobacco: Never Assessed Comments Unknown Sex and Gender Information Value Date Recorded Sex Assigned at Not on file Legal Sex Female 4:35 AM PRICING MANAGER Gender Identity Not on file Sexual Orientation Not on file documented as of this encounter Plan of Treatment Not on file documented as of this encounter Visit Diagnoses Diagnosis Cervical spondylosis- Primary Cervical spondylosis without myelopathy Attention to dressings and sutures documented in this encounter Care Teams Analyst Market Intelligence Relationship Specialty Start Date End Date Torin Sandhu MD PCP - General 04/10/08 documented as of this encounter
--- OUTSIDE RECORDS SUMMARY | 2025-01-13 09:52 | XMS_ITS | Encounter Summary ---
Author Organization [facility] Address [address] [place] [address] Care Team Providers Care Carbonation Equipment Tender Name Role Phone Torin Sandhu MD Primary Care Provider [phone] Reason for Visit * Reason Onset Date Comments Diarrhea 01/08/2025 Encounter Details Date Type Department Care Team (Late st Contact Info) Description 01/08/2025 Telephone [facility] Gastroenterology- [place] [id number] [facility] [address] [place] [address] Alejandra Briggs, [facility] [address] [facility] [address] [place] [id number] Diarrhea Social History Tobacco Use Types Packs/Day Years [...] on file Legal Sex Female 7:43 AM MAINTENANCE HELPER Gender Identity Not on file Sexual Orientation Not on file documented as of this encounter Miscellaneous Notes * Telephone Encounter - Geena Bush RN - 01/08/2025 11:31 AM CST , Annika, returned call. The best number to call is his: [phone]. Received call from spouse, Annika, that he is not going to be able to bring patient into the office today for her appointment due to the amount of watery diarrhea she is having, since they live 2 hours away. Patient was recently discharged from [facility] in [place]. Her C-diff and H. Pylori was negative. Hospital paperwork sent with referral and is the Media Tab. [facility] and was seen by In-Patient GI Consult at that time. has given patient Diphenoxylate-Atropine this morning for her diarrhea. She is only taking the Cholestyramine once a day due to the all the other medications she has to take. Discussed not taking the PRN reglan used for nausea since it increases gut motility. Also discussed changing appointment from in- clinic to telephone. Will check with provider and let know decision. Destiney is fine with Telephone Visit. Attempted to contact Pat at [phone]. Unable to leave message. Home phone is not in service. LVM with Lexy cell phone:[phone]. TENANCE HELPER TENANCE HELPER documented in this encounter Plan of Treatment Not on file documented as of this encounter Visit Diagnoses Not on filedocumented in this encounter Care Teams Carbonation Equipment Tender Relationship Specialty Start Date End Date Torin Sandhu MD [address] [id number] PCP - General 04/10/08 documented as of this encounter
--- OUTSIDE RECORDS SUMMARY | 2025-01-13 09:52 | XMS_ITS | Encounter Summary ---
Author Organization [facility] Address [address] [place] [address] Care Team Providers Care Entertainment Manager Name Role Phone Torin Sandhu MD Primary Care Provider [phone] Encounter Details Date Type Department Care Team (Latest Contact Info) Description 02/22/2000 Outpatient Historical HIS [facility] Jamal Stevenson MD [address] [place] [id number] Bunion (Primary Dx) Social History Tobacco Use Types Packs/Day Years Used Date Smoking Tobacco: Never Assessed Comments Unknown Sex and Gender Information Value Date Recorded Sex Assigned at Not on file Legal Sex Female 4:35 AM BELT SANDER Gender Identity Not on file Sexual Orientation Not on file documented as of this encounter Plan of Treatment Not on file documented as of this encounter Visit Diagnoses Diagnosis Bunion- Primary documented in this encounter Care Teams Entertainment Manager Relationship Specialty Start Date End Date Torin Sandhu MD PCP - General 04/10/08 documented as of this encounter
--- OUTSIDE RECORDS SUMMARY | 2025-01-13 09:52 | XMS_ITS | Encounter Summary ---
Author Organization [facility] Address [address] [place] [address] Care Team Providers Care Emergency Doctor Name Role Phone Torin Sandhu MD Primary Care Provider [phone] Encounter Details Date Type Department Care Team (Latest Contact Info) Description 08/13/2001 Outpatient Historical HIS [facility] Jamal Stevenson MD [address] [place] [address] Pain in limb (Primary Dx); PERS HX CIRCULATORY DIS NEC Social History Tobacco Use Types Packs/Day Years Used Date Smoking Tobacco: Never Assessed Comments Unknown Sex and Gender Information Value Date Recorded Sex Assigned at Not on file Legal Sex Female 4:35 AM MANUFACTURING ASSOCIATE Gender Identity Not on file Sexual Orientation Not on file documented as of this encounter Plan of Treatment Not on file documented as of this encounter Visit Diagnoses Diagnosis Pain in limb- Primary Pain in soft tissues of limb Personal history of other diseases of circulatory system documented in this encounter Care Teams Emergency Doctor Relationship Specialty Start Date End Date Torin Sandhu MD PCP - General 04/10/08 documented as of this encounter
--- OUTSIDE RECORDS SUMMARY | 2025-01-13 09:52 | XMS_ITS | Encounter Summary ---
Author Organization [facility] Address [address] [place] [address] Care Team Providers Care Custodial Manager Name Role Phone Torin Sandhu MD Primary Care Provider [phone] Encounter Details Date Type Department Care Team (Latest Contact Info) Description 05/24/2000 Outpatient Historical HIS [facility] Cali Ayon NO ADDRESS ON FILE Sebaceous cyst (Primary Dx) Social History Tobacco Use Types Packs/Day Years Used Date Smoking Tobacco: Never Assessed Comments Unknown Sex and Gender Information Value Date Recorded Sex Assigned at Not on file Legal Sex Female 4:35 AM MANAGER PHARMACEUTICAL Gender Identity Not on file Sexual Orientation Not on file documented as of this encounter Plan of Treatment Not on file documented as of this encounter Visit Diagnoses Diagnosis Sebaceous cyst- Primary documented in this encounter Care Teams Custodial Manager Relationship Specialty Start Date End Date Torin Sandhu MD PCP - General 04/10/08 documented as of this encounter
--- OUTSIDE RECORDS SUMMARY | 2025-01-13 09:52 | XMS_ITS | Encounter Summary ---
Author Organization [facility] Address [address] [place] [address] Care Team Providers Care Travel Counselor Automobile Club Name Role Phone Torin Sandhu MD Primary Care Provider [phone] Encounter Details Date Type Department Care Team (Latest Contact Info) Description 05/13/2003 Outpatient Historical HIS [facility] Mingo Herrera MD [address], [place] [address] 10-19% BDY BRN/3 DEG NOS (Primary Dx); BURN NOS HAND-UNSPEC Social History Tobacco Use Types Packs/Day Years Used Date Smoking Tobacco: Never Assessed Comments Unknown Sex and Gender Information Value Date Recorded Sex Assigned at Not on file Legal Sex Female 4:35 AM SECURITY SOLUTIONS ARCHITECT Gender Identity Not on file Sexual Orientation [...] hand documented in this encounter Care Teams Travel Counselor Automobile Club Relationship Specialty Start Date End Date Torin Sandhu MD PCP - General 04/10/08 documented as of this encounter
--- OUTSIDE RECORDS SUMMARY | 2025-01-13 09:52 | XMS_ITS | Encounter Summary ---
Author Organization [facility] Address [address] [place] [address] Care Team Providers Care Loader Machine Name Role Phone Torin Sandhu MD Primary Care Provider [phone] Encounter Details Date Type Department Care Team (Latest Contact Info) Description 06/22/2000 Outpatient Historical HIS [facility] Jamal Stevenson MD [address] [place] [address] Embolism and thrombosis of unspecified site (CMS/HCC) (Primary Dx); Need for prophylactic hormone replacement therapy (postmenopausal); termite exterminator helper (current) use of anticoagulants Social History Tobacco Use Types Packs/Day Years Used Date Smoking Tobacco: Never Assessed Comments Unknown Sex and Gender Information Value Date Recorded Sex Assigned at Not on file Legal Sex Female 4:35 AM HOSTEL PARENT Gender Identity Not on file Sexual Orientation Not on file documented as of this encounter Plan of Treatment Not on file documented as of this encounter Visit Diagnoses Diagnosis Embolism and thrombosis of unspecified site (CMS/HCC)- Primary Embolism and thrombosis of unspecified site Need for prophylactic hormone replacement therapy (postmenopausal) termite exterminator helper (current) use of anticoagulants Long-term (current) use of anticoagulants documented in this encounter Care Teams Loader Machine Relationship Specialty Start Date End Date Torin Sandhu MD PCP - General 04/10/08 documented as of this encounter
--- OUTSIDE RECORDS SUMMARY | 2025-01-13 09:52 | XMS_ITS | Encounter Summary ---
Author Organization [facility] Address [address] [place] [address] Care Team Providers Care Children'S Program Coordinator Name Role Phone Torin Sandhu MD Primary Care Provider [phone] Encounter Details Date Type Department Care Team (Latest Contact Info) Description 12/27/1999 Outpatient Historical HIS [facility] Cali Ayon NO ADDRESS ON FILE Lumbago (Primary Dx); Screening for other and unspecified endocrine, nutritional, metabolic and immunity disorders Social History Tobacco Use Types Packs/Day Years Used Date Smoking Tobacco: Never Assessed Comments Unknown Sex and Gender Information Value Date Recorded Sex Assigned at Not on file Legal Sex Female 4:35 AM OUTBOUND SUPERVISOR Gender Identity Not on file Sexual Orientation Not on file documented as of this encounter Plan of Treatment Not on file documented as of this encounter Visit Diagnoses Diagnosis Lumbago- Primary Screening for other and unspecified endocrine, nutritional, metabolic and immunity disorders documented in this encounter Care Teams Children'S Program Coordinator Relationship Specialty Start Date End Date Torin Sandhu MD PCP - General 04/10/08 documented as of this encounter
--- OUTSIDE RECORDS SUMMARY | 2025-01-13 09:52 | XMS_ITS | Encounter Summary ---
Author Organization [facility] Address [address] [place] [address] Care Team Providers Care Order Booker Name Role Phone Torin Sandhu MD Primary Care Provider [phone] Encounter Details Date Type Department Care Team (Latest Contact Info) Description 10/31/2002 Outpatient Historical HIS [facility] Mingo Herrera MD [address] [place], [place] [id number] CERVICALGIA (Primary Dx); EDEMA; OSTEOARTHROS NOS-UNSPEC; DERMATOPHYTOSIS OF NAIL Social History Tobacco Use Types Packs/Day Years Used Date Smoking Tobacco: Never Assessed Comments Unknown Sex and Gender Information Value Date Recorded Sex Assigned at Not on file Legal Sex Female 4:35 AM FACTORY HAND Gender Identity Not on file Sexual Orientation Not on file documented as of this encounter Plan of Treatment Not on file documented as of this encounter Visit Diagnoses Diagnosis Cervicalgia- Primary Edema Osteoarthrosis, unspecified whether generalized or localized, unspecified site Dermatophytosis of nail documented in this encounter Care Teams Order Booker Relationship Specialty Start Date End Date Torin Sandhu MD PCP - General 04/10/08 documented as of this encounter
--- OUTSIDE RECORDS SUMMARY | 2025-01-13 09:52 | XMS_ITS | Encounter Summary ---
Author Organization [facility] Address [address] [place] [address] Care Team Providers Care Baseball Sewer Hand Name Role Phone Torin Sandhu MD Primary Care Provider [phone] Encounter Details Date Type Department Care Team (Latest Contact Info) Description 11/22/2001 Outpatient Historical HIS [facility] Mingo Herrera MD [address] [place], [place] [id number] ALLERGIC RHINITIS NEC (Primary Dx) Social History Tobacco Use Types Packs/Day Years Used Date Smoking Tobacco: Never Assessed Comments Unknown Sex and Gender Information Value Date Recorded Sex Assigned at Not on file Legal Sex Female 4:35 AM SECRETARY TO BOARD OF COMMISSIONERS Gender Identity Not on file Sexual Orientation Not on file documented as of this encounter Plan of Treatment Not on file documented as of this encounter Visit Diagnoses Diagnosis Allergic rhinitis due to other allergen- Primary documented in this encounter Care Teams Baseball Sewer Hand Relationship Specialty Start Date End Date Torin Sandhu MD PCP - General 04/10/08 documented as of this encounter
--- OUTSIDE RECORDS SUMMARY | 2025-01-13 09:52 | XMS_ITS | Encounter Summary ---
Author Organization [facility] Address [address] [place] [address] Care Team Providers Care Slot Floorman Name Role Phone Torin Sandhu MD Primary Care Provider [phone] Encounter Details Date Type Department Care Team (Latest Contact Info) Description 02/13/2001 Outpatient Historical HIS [facility] Jamal Stevenson MD [address] [place] [address] AFTERCARE USP ANTICOAG USE (Primary Dx) Social History Tobacco Use Types Packs/Day Years Used Date Smoking Tobacco: Never Assessed Comments Unknown Sex and Gender Information Value Date Recorded Sex Assigned at Not on file Legal Sex Female 4:35 AM SHIFT SUPERINTENDENT Gender Identity Not on file Sexual Orientation Not on file documented as of this encounter Plan of Treatment Not on file documented as of this encounter Visit Diagnoses Diagnosis marine oil terminal 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
--- OUTSIDE RECORDS SUMMARY | 2025-01-13 09:52 | XMS_ITS | Encounter Summary ---
Author Organization [facility] Address [address] [place] [address] Care Team Providers Care Glass Washer And Carrier Name Role Phone Torin Sandhu MD Primary Care Provider [phone] Encounter Details Date Type Department Care Team (Latest Contact Info) Description 03/11/2003 Outpatient Historical HIS [facility] Mingo Herrera MD [address] [place], [place] [address] Acute nasopharyngitis (Primary Dx) Social History Tobacco Use Types Packs/Day Years Used Date Smoking Tobacco: Never Assessed Comments Unknown Sex and Gender Information Value Date Recorded Sex Assigned at Not on file Legal Sex Female 4:35 AM CONTROL EQUIPMENT ELECTRICIAN Gender Identity Not on file Sexual Orientation Not on file documented as of this encounter Plan of Treatment Not on file documented as of this encounter Visit Diagnoses Diagnosis Acute nasopharyngitis- Primary Acute nasopharyngitis (common cold) documented in this encounter Care Teams Glass Washer And Carrier Relationship Specialty Start Date End Date Torin Sandhu MD PCP - General 04/10/08 documented as of this encounter
--- OUTSIDE RECORDS SUMMARY | 2025-01-13 09:52 | XMS_ITS | Encounter Summary ---
Author Organization [facility] Address [address] [place] [address] Care Team Providers Care Research Instrumentation Technician Name Role Phone Torin Sandhu MD Primary Care Provider [phone] Encounter Details Date Type Department Care Team (Latest Contact Info) Description 11/13/2002 Outpatient Historical [facility] [address] [place] [phone] Mingo Herrera MD [address] [place] [address] SEBACEOUS CYST (Primary Dx) Social History Tobacco Use Types Packs/Day Years Used Date Smoking Tobacco: Never Assessed Comments Unknown Sex and Gender Information Value Date Recorded Sex Assigned at Not on file Legal Sex Female 4:35 AM MASK FORMER Gender Identity Not on file Sexual Orientation Not on file documented as of this encounter Plan of Treatment Not on file documented as of this encounter Visit Diagnoses Diagnosis Sebaceous cyst- Primary documented in this encounter Care Teams Research Instrumentation Technician Relationship Specialty Start Date End Date Torin Sandhu MD PCP - General 04/10/08 documented as of this encounter
--- OUTSIDE RECORDS SUMMARY | 2025-01-13 09:52 | XMS_ITS | Encounter Summary ---
Author Organization [facility] Address [address] [place] [address] Care Team Providers Care Rehabilitator Name Role Phone Torin Sandhu MD Primary Care Provider [phone] Encounter Details Date Type Department Care Team (Latest Contact Info) Description 01/18/2000 Outpatient Historical HIS [facility] Jamal Stevenson MD [address] [place] [address] Sprain of ankle, unspecified site (Primary Dx); Bunion Social History Tobacco Use Types Packs/Day Years Used Date Smoking Tobacco: Never Assessed Comments Unknown Sex and Gender Information Value Date Recorded Sex Assigned at Not on file Legal Sex Female 4:35 AM DIGITAL COMMENTATOR Gender Identity Not on file Sexual Orientation Not on file documented as of this encounter Plan of Treatment Not on file documented as of this encounter Visit Diagnoses Diagnosis Sprain of ankle, unspecified site- Primary Bunion documented in this encounter Care Teams Rehabilitator Relationship Specialty Start Date End Date Torin Sandhu MD PCP - General 04/10/08 documented as of this encounter
--- OUTSIDE RECORDS SUMMARY | 2025-01-13 09:52 | XMS_ITS | Encounter Summary ---
Author Organization [facility] Address [address] [place] [address] Care Team Providers Care Automotive Customer Experience Advisor Name Role Phone Torin Sandhu MD Primary Care Provider [phone] Encounter Details Date Type Department Care Team (Latest Contact Info) Description 08/24/2006 Outpatient Historical [facility] Dermatology- [place] [address] [place] [address] Nakul [place] MD NO ADDRESS ON FILE Benign Bill Skin Leg (Primary Dx); Other Atopic Dermatitis and Related Conditions Social History Tobacco Use Types Packs/Day Years Used Date Smoking Tobacco: Never Assessed Comments Unknown Sex and Gender Information Value Date Recorded Sex Assigned at Not on file Legal Sex Female 4:35 AM MANAGER TECHNICAL TRAINING Gender Identity Not on file Sexual Orientation Not on file documented as of this encounter Plan of Treatment Not on file documented as of this encounter Visit Diagnoses Diagnosis Benign bill skin leg- Primary Benign neoplasm of skin of lower limb, including hip Other atopic dermatitis and related conditions documented in this encounter Care Teams Automotive Customer Experience Advisor Relationship Specialty Start Date End Date Torin Sandhu MD PCP - General 04/10/08 documented as of this encounter
--- OUTSIDE RECORDS SUMMARY | 2025-01-13 09:52 | XMS_ITS | Encounter Summary ---
Author Organization [facility] Address [address] [place] [address] Care Team Providers Care Disassembler Product Name Role Phone Torin Sandhu MD Primary Care Provider [phone] Encounter Details Date Type Department Care Team (Latest Contact Info) Description 06/12/2000 Outpatient Historical HIS [facility] Jamal Stevenson MD [address] [place] [address] group home (current) use of anticoagulants (Primary Dx) Social History Tobacco Use Types Packs/Day Years Used Date Smoking Tobacco: Never Assessed Comments Unknown Sex and Gender Information Value Date Recorded Sex Assigned at Not on file Legal Sex Female 4:35 AM LOADING DOCK HAND Gender Identity Not on file Sexual Orientation Not on file documented as of this encounter Plan of Treatment Not on file documented as of this encounter Visit Diagnoses Diagnosis terminal gauger (current) use of anticoagulants- Primary Long-term (current) use of anticoagulants documented in this encounter Care Teams Disassembler Product Relationship Specialty Start Date End Date Torin Sandhu MD PCP - General 04/10/08 documented as of this encounter
--- OUTSIDE RECORDS SUMMARY | 2025-01-13 09:52 | XMS_ITS | Encounter Summary ---
Author Organization [facility] Address [address] [place] [address] Care Team Providers Care Jointer Operator Name Role Phone Torin Sandhu MD Primary Care Provider [phone] Encounter Details Date Type Department Care Team (Latest Contact Info) Description 02/03/[address] 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
--- OUTSIDE RECORDS SUMMARY | 2025-01-13 09:52 | XMS_ITS | Encounter Summary ---
Author Organization [facility] Address [address] [place] [address] Care Team Providers Care Bricklayer Helper Name Role Phone Torin Sandhu MD Primary Care Provider [phone] Encounter Details Date Type Department Care Team (Latest Contact Info) Description 08/24/2006 Outpatient Historical [facility] [address] [place] [address] Nakul [place] MD NO ADDRESS ON FILE Contact Dermatitis and Other Eczema, due to Unspecified Cause (Primary Dx) Social History Tobacco Use Types Packs/Day Years Used Date Smoking Tobacco: Never Assessed Comments Unknown Sex and Gender Information Value Date Recorded Sex Assigned at Not on file Legal Sex Female 4:35 AM MANAGEMENT DEVELOPMENT SPECIALIST Gender Identity Not on file Sexual Orientation Not on file documented as of this encounter Plan of Treatment Not on file documented as of this encounter Visit Diagnoses Diagnosis Contact dermatitis and other eczema, due to unspecified cause- Primary documented in this encounter Care Teams Bricklayer Helper Relationship Specialty Start Date End Date Torin Sandhu MD PCP - General 04/10/08 documented as of this encounter
--- OUTSIDE RECORDS SUMMARY | 2025-01-13 09:52 | XMS_ITS | Encounter Summary ---
Author Organization [facility] Address [address] [place] [address] Care Team Providers Care Development Engineer Name Role Phone Torin Sandhu MD Primary Care Provider [phone] Encounter Details Date Type Department Care Team (Latest Contact Info) Description 07/14/[address] [facility] Orthopedics- [address] [place] [address] Jhon Valle MD [address] [place] [phone] RECUR DISLOCAT-FOREARM (Primary Dx) Social History Tobacco Use Types Packs/Day Years Used Date Smoking Tobacco: Never Assessed Comments Unknown Sex and Gender Information Value Date Recorded Sex Assigned at Not on file Legal Sex Female 4:35 AM BAND EDGER Gender Identity Not on file Sexual Orientation Not on file documented as of this encounter Plan of Treatment Not on file documented as of this encounter Visit Diagnoses Diagnosis Recurrent dislocation of forearm joint- Primary documented in this encounter Care Teams Development Engineer Relationship Specialty Start Date End Date Torin Sandhu MD PCP - General 04/10/08 documented as of this encounter
--- OUTSIDE RECORDS SUMMARY | 2025-01-13 09:52 | XMS_ITS | Encounter Summary ---
Author Organization [facility] Address [address] [place] [address] Care Team Providers Care Pretzel Twisting Machine Operator Name Role Phone Torin Sandhu MD Primary Care Provider [phone] Encounter Details Date Type Department Care Team (Latest Contact Info) Description 01/24/2000 Outpatient Historical HIS [facility] Jamal Stevenson MD [address] [place] [address] Acute sinusitis, unspecified (Primary Dx); Other bursitis disorders Social History Tobacco Use Types Packs/Day Years Used Date Smoking Tobacco: Never Assessed Comments Unknown Sex and Gender Information Value Date Recorded Sex Assigned at Not on file Legal Sex Female 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
--- OUTSIDE RECORDS SUMMARY | 2025-01-13 09:52 | XMS_ITS | Encounter Summary ---
Author Organization [facility] Address [address] [place] [address] Care Team Providers Care Extrusion Process Operator Name Role Phone Torin Sandhu MD Primary Care Provider [phone] Reason for Visit * Reason Onset Date Comments Change in medication 01/09/2025 Encounter Details Date Type Department Care Team (Late st Contact Info) Description 01/09/2025 Telephone [facility] Gastroenterology- [place] [id number] [facility] [address] [place] [address] Alejandra Briggs, [facility] [address] [facility] [address] [place] [phone] Change in medication Social History Tobacco Use Types Packs/Day Years [...] on file Legal Sex Female 7:43 AM VACUUM PAN TENDER Gender Identity Not on file Sexual Orientation Not on file documented as of this encounter Miscellaneous Notes * Addendum Note - Stas Bush RN - 01/10/2025 8:59 AM CSTAddended by: STAS BUSH on: 01/10/2025 08:59 AM Modules accepted: Orders UM PAN TENDER * Telephone Encounter - Stas Bush RN - 01/09/2025 3:53 PM CST Images from the original note were not included. Call placed to family to inform of new orders. Alejandra Briggs FNP to Me (Selected Message) VR 01/09/25 6:40 PM Pill form is fine to switch to. Thank you, Destiney Patient called and LVM asking if the powder cholestyramine could be changed to pill form of colestipol. Returned call to patient. Spoke to , Jim, since patient was sleeping. statedpatient does not like the powered Cholestyramine and he has a hard time getting it down her. He thinks she would be more likely to swallow a pill than drink a mixture. Will send to provider for recommendations. UM PAN TENDER UM PAN TENDER documented in this encounter Plan of Treatment Not on file documented as of this encounter Visit Diagnoses Diagnosis Chronic diarrhea- Primary Diarrhea documented in this encounter Care Teams Extrusion Process Operator Relationship Specialty Start Date End Date Torin Sandhu MD [address] [phone] PCP - General 04/10/08 documented as of this encounter
--- OUTSIDE RECORDS SUMMARY | 2025-01-13 09:52 | XMS_ITS | Encounter Summary ---
Author Organization [facility] Address [address] [place] [address] Care Team Providers Care Supplier Quality Engineering Manager Name Role Phone Torin Sandhu MD Primary Care Provider [phone] Encounter Details Date Type Department Care Team (Latest Contact Info) Description 05/27/2002 Outpatient Historical HIS [facility] Mingo Herrera MD [address] [place], [place] [id number] ACUTE URI NOS (Primary Dx) Social History Tobacco Use Types Packs/Day Years Used Date Smoking Tobacco: Never Assessed Comments Unknown Sex and Gender Information Value Date Recorded Sex Assigned at Not on file Legal Sex Female 4:35 AM SPECK DYER Gender Identity Not on file Sexual Orientation Not on file documented as of this encounter Plan of Treatment Not on file documented as of this encounter Visit Diagnoses Diagnosis Acute upper respiratory infections of unspecified site- Primary documented in this encounter Care Teams Supplier Quality Engineering Manager Relationship Specialty Start Date End Date Torin Sandhu MD PCP - General 04/10/08 documented as of this encounter
--- OUTSIDE RECORDS SUMMARY | 2025-01-13 09:52 | XMS_ITS | Encounter Summary ---
Author Organization [facility] Address [address] [place] [address] Care Team Providers Care Administrative Support Assistant Name Role Phone Torin Sandhu MD Primary Care Provider [phone] Encounter Details Date Type Department Care Team [...] on file Legal Sex Female 4:35 AM CORRESPONDENCE CLERK Gender Identity Not on file Sexual Orientation Not on file documented as of this encounter Plan of Treatment Not on file documented as of this encounter Visit Diagnoses Diagnosis Pain in joint, multiple sites- Primary documented in this encounter Care Teams Administrative Support Assistant Relationship Specialty Start Date End Date Torin Sandhu MD PCP - General 04/10/08 documented as of this encounter
--- OUTSIDE RECORDS SUMMARY | 2025-01-13 09:52 | XMS_ITS | Encounter Summary ---
Author Organization [facility] Address [address] [place] [address] Care Team Providers Care Nitroglycerin Supervisor Name Role Phone Torin Sandhu MD Primary Care Provider [phone] Encounter Details Date Type Department Care Team (Late st Contact Info) Description 04/12/2007 [facility] [address] [place] [address] Nakul Carson MD NO ADDRESS ON FILE Social History Tobacco Use Types Packs/Day Years Used Date Smoking Tobacco: Never Assessed Comments Unknown Sex and Gender Information Value Date Recorded Sex Assigned at Not on file Legal Sex Female 4:35 AM ECOLOGIST TECHNICIAN Gender Identity Not on file Sexual Orientation Not on file documented as of this encounter Plan of Treatment Not on file documented as of this encounter Visit Diagnoses Not on filedocumented in this encounter Care Teams Nitroglycerin Supervisor Relationship Specialty Start Date End Date Torin Sandhu MD PCP - General 04/10/08 documented as of this encounter
--- OUTSIDE RECORDS SUMMARY | 2025-01-13 09:52 | XMS_ITS | Encounter Summary ---
Author Organization [facility] Address [address] [place] [address] Care Team Providers Care Transformer Stock Clerk Name Role Phone Torin Sandhu MD Primary Care Provider [phone] Encounter Details Date Type Department Care Team (Latest Contact Info) Description 05/06/2002 Outpatient Historical HIS [facility] Mingo Herrera MD [address] [place], [place] [id number] DERMATOPHYTOSIS OF BODY (Primary Dx) Social History Tobacco Use Types Packs/Day Years Used Date Smoking Tobacco: Never Assessed Comments Unknown Sex and Gender Information Value Date Recorded Sex Assigned at Not on file Legal Sex Female 4:35 AM FRUIT GROWER Gender Identity Not on file Sexual Orientation Not on file documented as of this encounter Plan of Treatment Not on file documented as of this encounter Visit Diagnoses Diagnosis Dermatophytosis of the body- Primary documented in this encounter Care Teams Transformer Stock Clerk Relationship Specialty Start Date End Date Torin Sandhu MD PCP - General 04/10/08 documented as of this encounter
--- OUTSIDE RECORDS SUMMARY | 2025-01-13 09:52 | XMS_ITS | Encounter Summary ---
Author Organization [facility] Address [address] [place] [address] Care Team Providers Care Automatic Spooler Operator Name Role Phone Torin Sandhu MD Primary Care Provider [phone] Encounter Details Date Type Department Care Team (Late st Contact Info) Description 11/25/2002 Outpatient Historical [facility] Social History Tobacco Use Types Packs/Day Years Used Date Smoking Tobacco: Never Assessed Comments Unknown Sex and Gender Information Value Date Recorded Sex Assigned at Not on file Legal Sex Female 4:35 AM WEB CONTENT SPECIALIST Gender Identity Not on file Sexual Orientation Not on file documented as of this encounter Plan of Treatment Not on file documented as of this encounter Visit Diagnoses Not on filedocumented in this encounter Care Teams Automatic Spooler Operator Relationship Specialty Start Date End Date Torin Sandhu MD PCP - General 04/10/08 documented as of this encounter
--- OUTSIDE RECORDS SUMMARY | 2025-01-13 09:52 | XMS_ITS | Encounter Summary ---
Author Organization [facility] Address [address] [place] [address] Care Team Providers Care Hand Cell Tuber Name Role Phone Torin Sandhu MD Primary Care Provider [phone] Encounter Details Date Type Department Care Team (Latest Contact Info) Description 04/12/2006 Outpatient Historical [facility] [address] [place] [address] Nakul Carson MD NO ADDRESS ON FILE Other Atopic Dermatitis and Related Conditions (Primary Dx) Social History Tobacco Use Types Packs/Day Years Used Date Smoking Tobacco: Never Assessed Comments Unknown Sex and Gender Information Value Date Recorded Sex Assigned at Not on file Legal Sex Female 4:35 AM CLASS C DRIVER Gender Identity Not on file Sexual Orientation Not on file documented as of this encounter Plan of Treatment Not on file documented as of this encounter Visit Diagnoses Diagnosis Other atopic dermatitis and related conditions- Primary documented in this encounter Care Teams Hand Cell Tuber Relationship Specialty Start Date End Date Torin Sandhu MD PCP - General 04/10/08 documented as of this encounter
--- OUTSIDE RECORDS SUMMARY | 2025-01-13 09:52 | XMS_ITS | Encounter Summary ---
Author Organization [facility] Address [address] [place] [address] Care Team Providers Care Director Of Assisted Living Name Role Phone Torin Sandhu MD Primary Care Provider [phone] Encounter Details Date Type Department Care Team (Latest Contact Info) Description 01/07/2000 Outpatient Historical HIS [facility] Jamal Stevenson MD [address] [place] [address] Bronchitis, not specified as acute or chronic (Primary Dx); Acute pharyngitis; Acute sinusitis, unspecified Social History Tobacco Use Types Packs/Day Years Used Date Smoking Tobacco: Never Assessed Comments Unknown Sex and Gender Information Value Date Recorded Sex Assigned at Not on file Legal Sex Female 4:35 AM SYSTEMS ARCHITECT Gender Identity Not on file Sexual Orientation Not on file documented as of this encounter Plan of Treatment Not on file documented as of this encounter Visit Diagnoses Diagnosis Bronchitis, not specified as acute or chronic- Primary Acute pharyngitis Acute sinusitis, unspecified documented in this encounter Care Teams Director Of Assisted Living Relationship Specialty Start Date End Date Torin Sandhu MD PCP - General 04/10/08 documented as of this encounter
--- OUTSIDE RECORDS SUMMARY | 2025-01-13 09:53 | XMS_ITS | Encounter Summary ---
Author Organization [facility] Address [address] [place] [address] Care Team Providers Care Manager Of Compensation Name Role Phone Torin Sandhu MD Primary Care Provider [phone] Encounter Details Date Type Department Care Team (Latest Contact Info) Description 11/20/2000 Outpatient Historical HIS [facility] Jamal Stevenson MD [address] [place] [address] Nonallopathic lesion of abdomen and other sites, not elsewhere classified (Primary Dx); Disorders of sacrum Social History Tobacco Use Types Packs/Day Years Used Date Smoking Tobacco: Never Assessed Comments Unknown Sex and Gender Information Value Date Recorded Sex Assigned at Not on file Legal Sex Female 4:35 AM REAM CUTTER Gender Identity Not on file Sexual Orientation Not on file documented as of this encounter Plan of Treatment Not on file documented as of this encounter Visit Diagnoses Diagnosis Nonallopathic lesion of abdomen and other sites, not elsewhere classified- Primary Disorders of sacrum documented in this encounter Care Teams Manager Of Compensation Relationship Specialty Start Date End Date Torin Sandhu MD PCP - General 04/10/08 documented as of this encounter
--- OUTSIDE RECORDS SUMMARY | 2025-01-13 09:53 | XMS_ITS | Encounter Summary ---
Author Organization [facility] Address [address] [place] [address] Care Team Providers Care Electrician Helper Name Role Phone Torin Sandhu MD Primary Care Provider [phone] Encounter Details Date Type Department Care Team (Latest Contact Info) Description 01/17/2001 Outpatient Historical HIS [facility] Mingo Herrera MD [address] [place], [place] [address] ACUTE URI NOS (Primary Dx); ACUTE LARYNGITIS WO OBSTRUCTION Social History Tobacco Use Types Packs/Day Years Used Date Smoking Tobacco: Never Assessed Comments Unknown Sex and Gender Information Value Date Recorded Sex Assigned at Not on file Legal Sex Female 4:35 AM HEEL SHAPER Gender Identity Not on file Sexual Orientation Not on file documented as of this encounter Plan of Treatment Not on file documented as of this encounter Visit Diagnoses Diagnosis Acute upper respiratory infections of unspecified site- Primary Acute laryngitis, without mention of obstruction documented in this encounter Care Teams Electrician Helper Relationship Specialty Start Date End Date Torin Sandhu MD PCP - General 04/10/08 documented as of this encounter
--- OUTSIDE RECORDS SUMMARY | 2025-01-13 09:53 | XMS_ITS | Encounter Summary ---
Author Organization [facility] Address [address] [place] [address] Care Team Providers Care Ecology Teacher Name Role Phone Torin Sandhu MD Primary Care Provider [phone] Encounter Details Date Type Department Care Team (Latest Contact Info) Description 09/01/2006 Outpatient [facility] [address] [place] [address] Nakul Carson MD NO ADDRESS ON FILE Other Atopic Dermatitis and Related Conditions (Primary Dx) Social History Tobacco Use Types Packs/Day Years Used Date Smoking Tobacco: Never Assessed Comments Unknown Sex and Gender Information Value Date Recorded Sex Assigned at Not on file Legal Sex Female 4:35 AM MAXILLOFACIAL PATHOLOGY Gender Identity Not on file Sexual Orientation Not on file documented as of this encounter Plan of Treatment Not on file documented as of this encounter Visit Diagnoses Diagnosis Other atopic dermatitis and related conditions- Primary documented in this encounter Care Teams Ecology Teacher Relationship Specialty Start Date End Date Torin Sandhu MD PCP - General 04/10/08 documented as of this encounter
--- OUTSIDE RECORDS SUMMARY | 2025-01-13 09:53 | XMS_ITS | Encounter Summary ---
Author Organization [facility] Address [address] [place] [address] Care Team Providers Care Test Center Administrator Name Role Phone Torin Sandhu MD Primary Care Provider [phone] Encounter Details Date Type Department Care Team (Latest Contact Info) Description 01/09/2001 Outpatient Historical HIS [facility] Mingo Herrera MD [address] [place], [place] [id number] STOMACH FUNCTION DIS NEC (Primary Dx); GASTRITIS/DUODEN NOS W/O HEMORRH; CIRCULATING ANTICOAG DIS Social History Tobacco Use Types Packs/Day Years Used Date Smoking Tobacco: Never Assessed Comments Unknown Sex and Gender Information Value Date Recorded Sex Assigned at Not on file Legal Sex Female 4:35 AM GAS DERRICK OPERATOR Gender Identity Not on file Sexual Orientation Not on file documented as of this encounter Plan of Treatment Not on file documented as of this encounter Visit Diagnoses Diagnosis Dyspepsia and other specified disorders of function of stomach- Primary Unspecified gastritis and gastroduodenitis without mention of hemorrhage Hemorrhagic disorder due to intrinsic circulating anticoagulants documented in this encounter Care Teams Test Center Administrator Relationship Specialty Start Date End Date Torin Sandhu MD PCP - General 04/10/08 documented as of this encounter
--- OUTSIDE RECORDS SUMMARY | 2025-01-13 09:53 | XMS_ITS | Encounter Summary ---
Author Organization [facility] Address [address] [place] [address] Care Team Providers Care Children'S Librarian Name Role Phone Torin Sandhu MD Primary Care Provider [phone] Encounter Details Date Type Department Care Team (Late st Contact Info) Description 03/29/2007 Outpatient Historical [facility] [address] [place] [address] Nakul Carson MD NO ADDRESS ON FILE Social History Tobacco Use Types Packs/Day Years Used Date Smoking Tobacco: Never Assessed Comments Unknown Sex and Gender Information Value Date Recorded Sex Assigned at Not on file Legal Sex Female 4:35 AM BINDER AND WRAPPER PACKER Gender Identity Not on file Sexual Orientation Not on file documented as of this encounter Plan of Treatment Not on file documented as of this encounter Visit Diagnoses Not on filedocumented in this encounter Care Teams Children'S Librarian Relationship Specialty Start Date End Date Torin Sandhu MD PCP - General 04/10/08 documented as of this encounter
--- OUTSIDE RECORDS SUMMARY | 2025-01-13 09:53 | XMS_ITS | Clinical Summary ---
Author Organization [facility] Address [address] [place] [address] Care Team Providers Care Automobile Club Information Clerk Name Role Phone Torin Sandhu MD Primary Care Provider [phone] Allergies Active Allergy Reactions Criticality Noted Date [...] on file Legal Sex Female 4:35 AM TRACE CLERK Gender Identity Not on file Sexual [...] Insurance MEDICARE PART A AND B [facility] [place] [address] Care Teams Automobile Club Information Clerk Relationship Specialty Start Date End Date Torin Sandhu MD PCP - General 04/10/08
--- OUTSIDE RECORDS SUMMARY | 2025-01-13 09:53 | XMS_ITS | Encounter Summary ---
Author Organization [facility] Address [address] [place] [address] Care Team Providers Care Core Analyst Name Role Phone Torin Sandhu MD Primary Care Provider [phone] Encounter Details Date Type Department Care Team (Latest Contact Info) Description 01/23/2001 Outpatient Historical HIS [facility] Mingo Herrera MD [address] [place], [place] [address] CATARACT NOS (Primary Dx); CHRONIC RHINITIS Social History Tobacco Use Types Packs/Day Years Used Date Smoking Tobacco: Never Assessed Comments Unknown Sex and Gender Information Value Date Recorded Sex Assigned at Not on file Legal Sex Female 4:35 AM MANAGER ROOM Gender Identity Not on file Sexual Orientation Not on file documented as of this encounter Plan of Treatment Not on file documented as of this encounter Visit Diagnoses Diagnosis Unspecified cataract- Primary Chronic rhinitis documented in this encounter Care Teams Core Analyst Relationship Specialty Start Date End Date Torin Sanhdu MD PCP - General 04/10/08 documented as of this encounter
--- OUTSIDE RECORDS SUMMARY | 2025-01-13 09:53 | XMS_ITS | Encounter Summary ---
Author Organization [facility] Address [address] [place] [address] Care Team Providers Care Theatre Director Name Role Phone Torin Sandhu MD Primary Care Provider [phone] Encounter Details Date Type Department Care Team (Latest Contact Info) Description 08/24/2000 Outpatient Historical HIS [facility] Jamal Stevenson MD [address] [place] [address] Edema (Primary Dx); [facility] (current) use of anticoagulants Social History Tobacco Use Types Packs/Day Years Used Date Smoking Tobacco: Never Assessed Comments Unknown Sex and Gender Information Value Date Recorded Sex Assigned at Not on file Legal Sex Female 4:35 AM SALES PRODUCT SPECIALIST Gender Identity Not on file Sexual Orientation Not on file documented as of this encounter Plan of Treatment Not on file documented as of this encounter Visit Diagnoses Diagnosis Edema- Primary purchasing buyer (current) use of anticoagulants Long-term (current) use of anticoagulants documented in this encounter Care Teams Theatre Director Relationship Specialty Start Date End Date Torin Sandhu MD PCP - General 04/10/08 documented as of this encounter
--- OUTSIDE RECORDS SUMMARY | 2025-01-13 09:53 | XMS_ITS | Encounter Summary ---
Author Organization [facility] Address [address] [place] [address] Care Team Providers Care Cereal Miller Name Role Phone Torin Sandhu MD Primary Care Provider [phone] Encounter Details Date Type Department Care Team (Latest Contact Info) Description 12/15/2000 Outpatient Historical HIS [facility] Mingo Herrera MD [address] [place], [place] [address] Allergic rhinitis, cause unspecified (Primary Dx); residential (current) use of anticoagulants Social History Tobacco Use Types Packs/Day Years Used Date Smoking Tobacco: Never Assessed Comments Unknown Sex and Gender Information Value Date Recorded Sex Assigned at Not on file Legal Sex Female 4:35 AM EVAPORATOR OPERATOR MOLASSES Gender Identity Not on file Sexual Orientation Not on file documented as of this encounter Plan of Treatment Not on file documented as of this encounter Visit Diagnoses Diagnosis Allergic rhinitis, cause unspecified- Primary long term (current) use of anticoagulants Long-term (current) use of anticoagulants documented in this encounter Care Teams Cereal [place] Relationship Specialty Start Date End Date Torin Sandhu MD PCP - General 04/10/08 documented as of this encounter
--- OUTSIDE RECORDS SUMMARY | 2025-01-13 09:53 | XMS_ITS | Encounter Summary ---
Author Organization [facility] Address [address] [place] [address] Care Team Providers Care Billet Sawyer Name Role Phone Torin Sandhu MD Primary Care Provider [phone] Encounter Details Date Type Department Care Team (Latest Contact Info) Description 11/07/2000 Outpatient Historical HIS [facility] Jamal Stevenson MD [address] [place] [address] [facility] (current) use of anticoagulants (Primary Dx) Social History Tobacco Use Types Packs/Day Years Used Date Smoking Tobacco: Never Assessed Comments Unknown Sex and Gender Information Value Date Recorded Sex Assigned at Not on file Legal Sex Female 4:35 AM TURNING SANDER OPERATOR Gender Identity Not on file Sexual Orientation Not on file documented as of this encounter Plan of Treatment Not on file documented as of this encounter Visit Diagnoses Diagnosis medical terminologist (current) use of anticoagulants- Primary Long-term (current) use of anticoagulants documented in this encounter Care Teams Billet Sawyer Relationship Specialty Start Date End Date Torin Sandhu MD PCP - General 04/10/08 documented as of this encounter
--- OUTSIDE RECORDS SUMMARY | 2025-01-13 09:53 | XMS_ITS | Encounter Summary ---
Author Organization [facility] Address [address] [place] [address] Care Team Providers Care Quotation Clerk Name Role Phone Torin Sandhu MD Primary Care Provider [phone] Encounter Details Date Type Department Care Team (Late st Contact Info) Description 03/28/2007 [facility]patient [facility] [address] [id number] Nakul Carson MD NO ADDRESS ON FILE Social History Tobacco Use Types Packs/Day Years Used Date Smoking Tobacco: Never Assessed Comments Unknown Sex and Gender Information Value Date Recorded Sex Assigned at Not on file Legal Sex Female 4:35 AM CHANGE MANAGEMENT DIRECTOR Gender Identity Not on file Sexual Orientation Not on file documented as of this encounter Plan of Treatment Not on file documented as of this encounter Visit Diagnoses Not on filedocumented in this encounter Care Teams Quotation Clerk Relationship Specialty Start Date End Date Torin Sandhu MD PCP - General 04/10/08 documented as of this encounter
--- OUTSIDE RECORDS SUMMARY | 2025-01-13 09:53 | XMS_ITS | Encounter Summary ---
Author Organization [facility] Address [address] [place] [address] Care Team Providers Care Orthopedic Shoes Salesperson Name Role Phone Torin Sandhu MD Primary Care Provider Encounter Details Date Type Department Care Team (Latest Contact Info) Description 09/27/2000 Outpatient Historical [facility] Jamal Stevenson MD [address] [place] [address] skilled nursing (current) use of anticoagulants (Primary Dx) Social History Tobacco Use Types Packs/Day Years Used Date Smoking Tobacco: Never Assessed Comments Unknown Sex and Gender Information Value Date Recorded Sex Assigned at Not on file 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
--- OUTSIDE RECORDS SUMMARY | 2025-01-13 09:53 | XMS_ITS | Encounter Summary ---
Author Organization [facility] Address [address] [place] [address] Care Team Providers Care Supervisor Rice Milling Name Role Phone Torin Sandhu MD Primary Care Provider [phone] Encounter Details Date Type Department Care Team (Latest Contact Info) Description 07/11/2000 Outpatient Historical [facility] Jamal Stevenson MD [address] [place] [address] Atrial fibrillation (CMS/HCC) (Primary Dx); [facility] (current) use of anticoagulants Social History Tobacco Use Types Packs/Day Years Used Date Smoking Tobacco: Never Assessed Comments Unknown Sex and Gender Information Value Date Recorded Sex Assigned at Not on file 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
--- OUTSIDE RECORDS SUMMARY | 2025-01-13 09:53 | XMS_ITS | Encounter Summary ---
Author Organization [facility] Address [address] [place] [address] Care Team Providers Care Fountain Vending Mechanic Name Role Phone Torin Sandhu MD Primary Care Provider [phone] Encounter Details Date Type Department Care Team (Late st Contact Info) Description 03/15/[address] 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
--- OUTSIDE RECORDS SUMMARY | 2025-01-13 09:53 | XMS_ITS | Encounter Summary ---
Author Organization [facility] Address [address] [place] [address] Care Team Providers Care Mutuel Cashier Name Role Phone Torin Sandhu MD Primary Care Provider [phone] Encounter Details Date Type Department Care Team (Latest Contact Info) Description 08/09/2000 Outpatient Historical [facility] Jamal Stevenson MD [address] [place] [address] longterm (current) use of anticoagulants (Primary Dx) Social History Tobacco Use Types Packs/Day Years Used Date Smoking Tobacco: Never Assessed Comments Unknown Sex and Gender Information Value Date Recorded Sex Assigned at Not on file 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
[2025-01-13 10:01] LABS: Hematocrit 31.2 % (36-47); Hemoglobin 9.50 g/dL (11.27-16.99); Mean Corpuscular HGB Conc 30.4 g/dL (30-55); Mean Corpuscular Hemoglobin 32.1 pg (27-33); Mean Corpuscular Volume 105.4 fl (85-98); Platelet Count 229 10^3/cmm (157-399); Red Blood Count 2.96 10^6/uL (3.85-5.65); White Blood Count 12.00 10^3/uL (3.29-11.43)
--- NOTE | 2025-01-13 10:01 | ECG_ITS ---
[facility]: 2025-01-13 Pat Name: Lexy Chawla Department: Room: Gender: Female Payroll Benefits Clerk: : 1945 Requested By: Lee Aguilar Order Number: [id number] Zoya MD: Pearl Carty M.D. Measurements Intervals [place] Rate: 88 P: 63 NV: 164 QRS: 96 QRSD: 89 T: 11 QT: 350 QTc: 425 Interpretive Statements SINUS RHYTHM INDETERMINATE AXIS LOW QRS VOLTAGE IN PRECORDIAL LEADS [QRS DEFLECTION < 1.0 mV IN CHEST LEADS] ANTEROSEPTAL MYOCARDIAL INFARCTION , OF INDETERMINATE AGE [40+ ms Q WAVE IN V1-V4] Compared to ECG 12/04/2024 18:20:26 Sinus tachycardia no longer present Ventricular premature complex(es) no longer present Myocardial infarct finding still present Baseline artifacts, need to repeat Electronically Signed On 01-13-2025 18:11:46 SHEET ROCK HANGER by Pearl Carty M.D. [email or web address]
--- NOTE | 2025-01-13 10:15 | PC.NURSE ---
pt rectal temp 94.0, applied Julianna Silviano.
[2025-01-13 10:17] LABS: Slide Review Slide Review Perform
[2025-01-13 10:21] LABS: Absolute Segmented Neutrophil 5.0 10/cmm (1.6-7.1); Band Neutrophils Absolute 4.0 10^3/cmm (0.0-1.2); Total Cells Counted 100 (0-100)
[2025-01-13 10:22] LABS: Anisocytosis 1+; Macrocytosis 1+; Poikilocytosis 1+
[2025-01-13 10:23] LABS: Atypical Lymphs 0.0 % (0-5)
[2025-01-13 10:37] LABS: Glucose Urine UA Negative (Normal); Nitrate Urine Negative (Negative); Specific Gravity, Urine 1.017 (1.005-1.030)
[2025-01-13 10:43] LABS: Add Urine Microscopic? YES; Universal Test for UA Present (0)
[2025-01-13 10:52] LABS: Lactic Sepsis W/Reflex 3.5 mmol/L (0.5-2.2)
[2025-01-13 11:17] LABS: UA Slide Review UA Slide Review Perf
[2025-01-13] MEDS: cefTRIAXone 1,000 mg SDV 1000 MG IVP (11:18)
--- NOTE | 2025-01-13 11:23 | PC.PHAR ---
Pts' spouse states medications have not been changed since discharge on 01/09/25. Last medications were taken yesterday 01/12/25, none taken yet this morning. Found a new rx 01/10/25 for Colestipol 1gm bid 01/10/25 30ds and added to pt list.
[2025-01-13 11:39] LABS: Alanine Aminotransferase 9 U/L (0-33); Albumin Level 2.8 g/dL (3.5-5.2); Alkaline Phosphatase 133 U/L (35-105); Anion Gap 17.4 (5-19); Aspartate Amino Transferase 11 U/L (0-32); Blood Urea Nitrogen 44 mg/dL (8-23); Calcium 8.1 mg/dL (8.5-10.5); Carbon Dioxide 11 mmol/L (22-29); Chloride 117 mmol/L (98-107); Creatinine Clr Calc Pharmacy 19.0705; Globulin 2.1 g/dL (1.3-4.6); Glucose 112 mg/dL (65-115); Osmolality Calculated 298 mOsm/kg (285-295); Sodium 138 mmol/L (136-145); Total Protein 4.9 g/dL (6.6-8.7)
[2025-01-13 11:43] LABS: Magnesium 1.7 mg/dL (1.7-2.3)
[2025-01-13 11:45] LABS: Potassium 7.4 mmol/L (3.5-5.1)
[2025-01-13] MEDS: calcium chloride 10% Syr 10 mL 1 GM IVP (11:54)
[2025-01-13] MEDS: sodium bicarbonate 8.4% syr 150 MEQ in dextrose 5% 200 ML 700 MEQ IV (12:03)
--- NOTE | 2025-01-13 12:08 | PC.NURSE ---
insulin delayed d/t glucose via FS in 80s. bicarb in dextrose gtt infusing at this time.
--- NOTE | 2025-01-13 12:12 | PC.NURSE ---
pt b/p steadily declining, Dr. Garcia notified and at bedside. verbal order for 1L NS bolus. pt placed in trendelenburg. pt is still awake and alert to verbal stimuli, but appears drowsy.
--- NOTE | 2025-01-13 12:35 | PC.NURSE ---
glucose 96 via FS after dextrose/bicarb gtt infused. Dr. Garcia notified, verbal order for D10 250mL bolus and to hold insulin until glucose increases.
--- NOTE | 2025-01-13 13:08 | PM.HP ---
Providers/Chief Complaint Admitting Physician: Andreas Meza MD MPH Primary Care Provider: Torin Sandhu MD Chief Complaint: weakness - confusion History of Present Illness Lexy Chawla is a 79 year old female who presented to the ER with complaint of dizziness and weakness. Patient reports suddenly feeling weak in her legs today, as she stood up to walk, She reports falling down unable to walk for a minute, till patient's came and helped her stand up. She reports some dizziness, but denies any passing out associated with symptoms. Consequently, she was brought to the ER for further evaluation. Upon being evaluated in the in ER, she was found to be hyperkalemic. She was therefore recommended for admission and further evaluation. She denies any passing out, chest pain, diaphoresis, palpitations, or N/V prior to symptoms. Patient denies any new symptoms, other than just feeling cold, and actually actively shivering as I was talking to her. She denies any polyuria, diarrhea, nausea or vomiting. She was not able to acknowledge adequate oral fluid intake, however. However, she takes spironolactone and sodium supplementation at home, for which she has been compliant with. Review of Systems Narrative: 10 ponits review of system done, and essentially normal limits, except as in the HPI. Medications/Allergies Home Medications ?Medication ?Instructions ?Recorded ?Confirmed ?Last Taken ?Type hydrocodone 7.5 mg-acetaminophen 1 tab PO BID PRN pain 30 days #60 06/12/24 01/13/25 Unknown Rx 325 mg tablet tabs metoclopramide HCl 10 mg tablet 10 mg PO Q6H PRN nausea and 07/30/24 01/13/25 Unknown Rx vomiting #60 tabs cholestyramine (with sugar) 4 gram See Rx Instructions .Route 08/06/24 01/13/25 01/12/25 Rx oral powder .COMPLEX #378 grams promethazine 25 mg tablet 25 mg PO Q8H PRN Nausea #30 tabs 08/08/24 01/13/25 Unknown Rx diphenoxylate-atropine 2.5 1 tab PO BID PRN diarrhea 30 days 09/09/24 01/13/25 Unknown Rx mg-0.025 mg tablet #60 tabs triamcinolone acetonide 0.1 % 1 applic topical DAILY PRN Skin 09/30/24 01/13/25 Unknown Rx topical cream Irritation #80 grams duloxetine 30 mg capsule,delayed 30 mg PO DAILY #30 caps 10/22/24 01/13/25 01/12/25 Rx release pregabalin 150 mg capsule 150 mg PO DAILY #60 caps 10/22/24 01/13/25 01/12/25 Rx diclofenac sodium 75 mg 75 mg PO DAILY PRN Pain 12/04/24 01/13/25 Unknown History tablet,delayed release furosemide 40 mg tablet 40 mg PO DAILY PRN swelling 12/04/24 01/13/25 Unknown History levothyroxine 125 mcg tablet 125 mcg PO DAILY 12/04/24 01/13/25 01/12/25 History lidocaine 5 % topical ointment 1 applic topical DAILY PRN Pain 12/04/24 01/13/25 12/03/24 History rivaroxaban 10 mg tablet (Xarelto) 10 mg PO DAILY 12/04/24 01/13/25 01/12/25 History megestrol 400 mg/10 mL (40 mg/mL) 400 mg (10 mL) PO DAILY #30 mL 12/09/24 01/13/25 01/12/25 Rx oral suspension metoprolol tartrate 25 mg tablet 12.5 mg (1/2 x 25 mg) PO DAILY #60 12/09/24 01/13/25 01/12/25 Rx tabs midodrine 5 mg tablet 10 mg (2 x 5 mg) PO TID #90 tabs 12/09/24 01/13/25 01/12/25 Rx multivitamin with folic acid 400 1 tab PO DAILY #30 tabs 12/09/24 01/13/25 01/12/25 Rx mcg tablet (Thera) pantoprazole 40 mg tablet,delayed 40 mg PO BID #60 tabs 12/09/24 01/13/25 01/12/25 Rx release ferrous gluconate 324 mg (37.5 mg 324 mg PO BID #60 tabs 12/27/24 01/13/25 01/12/25 Rx iron) tablet colestipol 1 gram tablet 1 g PO BID 01/13/25 01/13/25 01/12/25 History potassium chloride 10 mEq 20 meq PO BID 01/13/25 01/13/25 01/12/25 History capsule,extended release spironolactone 25 mg tablet 25 mg PO DAILY 01/13/25 01/13/25 01/12/25 History Allergies Allergy/AdvReac Type Severity Reaction Status Date / Time clindamycin Allergy chest pain Verified 12/19/24 15:29 Penicillins Allergy rash Verified 12/19/24 15:29 PFSH Acute PFSH: Medical History IBS (irritable bowel syndrome) Hypertension Colitis Hypomagnesemia Normal anion gap metabolic acidosis Diarrhea Dehydration Acute renal failure Hemorrhoids Hypokalemia Diffuse large b-cell lymphoma, lymph nodes of head, face, 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 This occurred last night. On exam today no actual bleeding seen anywhere. Stitch from her vault suspension was again noted today on exam. No granulation tissue was noted on exam. However, due to this intermittent reporting of bleeding, I went ahead and removed the stitch. On removal, the stitch appeared to not be attached to anything other than the vaginal wall. Patient still had a urethral caruncle noted with a small spot adjacent to it which is suspicious for possible bleeding from that area. With her being on the Xarelto, she may have bled from either the caruncle or from the stitch in the vagina. Questions were answered. Follow-up as needed. Surgical History History of endoscopy 08/2022 - Dr. Blanton at [facility]. S/P lumpectomy, right breast (01/27/20) H/O excision of mass H/O colonoscopy 2013 H/O esophagogastroduodenoscopy 2019 History of laparotomy (~1996) left ovarian cystectomy Hx of hysterectomy (~04/08/14) with vaginal repair------- TVH, LSO, Uterosacral ligament suspension, Anterior vaginal repair, Perineorrhaphy, Single incision suburethral sling, Cystoscopy, Lysis of bowel adhesions. 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 Performed by Dr. Remi Musa at [facility] in [place], [place]. Surgical findings: Third degree cystocele, second to third degree uterine prolapse, adhesions of the sigmoid to the left fundal portion of the uterus and to the left ovary, left ovarian cyst present. History of surgery on right wrist (~12/2010) Hx of cholecystectomy (~02/2005) Laparoscopic. Performed by Dr. Blanton at [facility] in [place], [place]. History of bunionectomy (~2001) left H/O ovarian cystectomy (~1996) Left-- Laparotomy Hx of breast biopsy (~1993) 1993-- 1 cyst removed from left breast and 2 cysts removed from right breast. All pathologies were benign. History of tonsillectomy and adenoidectomy (~1951) Family History Grandfather Diabetes Maternal Mother Breast cancer dx at age 45 Denies family history of Colon cancer Ovarian cancer Heart disease Hypercholesteremia Anesthesia complication Bleeding disorder Hypertension Uterine cancer Thyroid disease Stroke Social History Smoking and tobacco/nicotine status: never used tobacco/nicotine Vitals/I&O/Wt Last Vital Signs Temp 94.6 F L 01/13/25 09:52 Pulse 76 01/13/25 12:27 Resp 18 01/13/25 12:15 BP 105/53 01/13/25 12:15 Pulse Ox 99 01/13/25 12:15 O2 Del Method Room Air 01/13/25 12:12 01/12/25 01/13/25 01/13/25 22:59 06:59 14:59 Intake Total 1700.97 / 1700.97 Balance 1700.97 / 1700.97 Weight last 48 hrs Weight 56.699 kg Physical Exam Const: COMMON NORMALS: no acute distress, patient oriented x3 and alert Resp: COMMON NORMALS: normal respiratory effort and No use of accessory muscles Cardio: COMMON NORMALS: no JVD, regular rhythm, S1 normal heart sound present, S2 normal heart sound present and No murmurs present (Cardio) RATE: tachycardic (Rate in the 100s.) GI: COMMON NORMALS: Normal to inspection, nondistended, normoactive bowel sounds present Extremity: COMMON NORMALS: normal to inspection OTHER: Remarkable skin turgor with decreased capillary refill. Neuro: COMMON NORMALS: patient oriented x3, moves all extremities and no focal motor deficits Psych: COMMON NORMALS: mental status grossly normal Skin: GENERAL SKIN EXAM: no rashes or lesions noted OTHER: Remarkably dry mucous membranes. Data 01/13/25 09:50 01/13/25 10:55 CXR: Radiologist's impression: Comparison 12/04/2024. Lungs are fully expanded and clear. Normal cardiomediastinal silhouette. Regional bony structures are intact. Surgical clips along the RIGHT axilla. Degenerative change and mild levoscoliosis of the T-spine. IMPRESSION: No acute cardiopulmonary finding . A&P Assessment and plan 1. Hyperkalemia: 2. Acute kidney injury: Failure likely prerenal 3. Severe dehydration: 4. Hypertension: Plan: 1. Acute severe hyperkalemia: Admit to the ICU. Monitor closely on telemetry. Continue already ordered hyperkalemia cocktail of insulin plus D5, in addition to oral kayexalate x1. Repeat BMP later this evening, and also later tomorrow morning. 2. Acute hypovolemia with associated acute renal failure: I suspect excessive diuresis as contributing to these, as well as contributing to the hyperkalemia. We rehydrate patient with normal saline. Earlier in the evening, the nurse had called about patient's blood pressure dropping; therefore, 1 bolus of normal saline ordered. Thereafter, continue to rehydrate intravenously with normal saline at 100 cc/h x 2 L, at least. Watch out for fluid overload. Monitor closely. 3. Essential hypertension: Leg elevated above, patient had an episode of hypotension, requiring extra IV fluid bolus. I will hold all antihypertensive medications at this time. Further Plans: To be adjusted as clinical picture evolves. Will consider nephrology consult if the above-outlined conservative and preliminary approach fails to show significant improvement. PDMP PDMP Reviewed: Not Reviewed Attestations Medical Necessity Statement*: 79-year-old female with severe acute hyperkalemia with associated hypotension associated with hypervolemia and acute renal failure. Will require at least up to 2 midnights to show adequate correction of fluid deficit, electrolyte imbalance, and further control blood pressures. Coding Level of Care Code 15224 Diagnoses Hyperkalemia E87.5 Acute kidney injury N17.9 Severe dehydration E86.0 Hypertension I10
--- NOTE | 2025-01-13 13:09 | PC.NURSE ---
informed ICU nurse that insulin was not administered d/t glucose being 81 & 96. dextrose infusing at this time.
[2025-01-13] MEDS: heparin 5,000 unit/mL INJ 1 mL 5000 UNIT SUBCUT (13:51)
--- NOTE | 2025-01-13 14:31 | PC.NURSE ---
Addendum entered by Meryl Duff RN 01/13/25 15:00: Dr. Trevizo verbalized to proceed with one time IVP order insulin after D10 infusion Original Note: Patients BP low, and BS was 170, Insulin IVP ordered, called Dr. Trevizo to clarify about Insulin, received orders for a 250mL bolus of D10, and 1 Liter bolus of NS. Orders placed, see MAR>
[2025-01-13] MEDS: insulin regular-human 100 units/1 mL 10 UNIT IVP (15:21)
[2025-01-13 16:04] LABS: Reflex Lactate Order REFLEX LACTIC ORDERD
[2025-01-13 17:52] LABS: Blood Urea Nitrogen 37 mg/dL (8-23); Calcium 7.4 mg/dL (8.5-10.5); Carbon Dioxide 11 mmol/L (22-29); Chloride 121 mmol/L (98-107); Glucose 121 mg/dL (65-115); Osmolality Calculated 302 mOsm/kg (285-295); Sodium 141 mmol/L (136-145)
[2025-01-13 17:55] LABS: Anion Gap 13.7 (5-19); Potassium 4.7 mmol/L (3.5-5.1)
[2025-01-13 17:56] LABS: Lactic Acid level (Lactate) 4.5 mmol/L (0.5-2.2)
[2025-01-13 20:17] LABS: Lactate (Lactic Acid level) 2.7 mmol/L (0.5-2.2)
[2025-01-14] VITALS (50 sets, daily range): BP systolic 91–130; BP diastolic 56–83; PULSE 94–129; RESP 13–32; TEMP 36.6–37; O2SAT 90–100
[2025-01-14] MEDS: heparin 5,000 unit/mL INJ 1 mL 5000 UNIT SUBCUT (01:15)
[2025-01-14 05:04] LABS: Hematocrit 24.1 % (36-47); Hemoglobin 7.40 g/dL (11.27-16.99); Mean Corpuscular HGB Conc 30.7 g/dL (30-55); Mean Corpuscular Hemoglobin 31.2 pg (27-33); Mean Corpuscular Volume 101.7 fl (85-98); Nucleated Red Blood Cells % 0 %; Platelet Count 144 10^3/cmm (157-399); Red Blood Count 2.37 10^6/uL (3.85-5.65); White Blood Count 6.90 10^3/uL (3.29-11.43)
[2025-01-14 05:26] LABS: Anion Gap 13.4 (5-19); Blood Urea Nitrogen 32 mg/dL (8-23); Calcium 7.3 mg/dL (8.5-10.5); Carbon Dioxide 14 mmol/L (22-29); Chloride 122 mmol/L (98-107); Glucose 126 mg/dL (65-115); Magnesium 1.3 mg/dL (1.7-2.3); Osmolality Calculated 306 mOsm/kg (285-295); Potassium 5.4 mmol/L (3.5-5.1); Sodium 144 mmol/L (136-145)
[2025-01-14 05:42] LABS: Slide Review Slide Review Perform
--- NOTE | 2025-01-14 06:43 | PC.NURSE ---
Pt has had frequent liquid stools this shift following kayexelate. Reported to Dr Walker in addition to downward trend of hgb and K+ of 5.3. New order received to draw hgb and BMP at 0900.
--- NOTE | 2025-01-14 08:52 | P.PN_ITS ---
Subjective 2 Subjective: Patient seen today in the company of the in the ICU. She reports feeling much better today. The further clarifies that patient has been having some intermittent diarrheas, and which got worse in the last few days. He also has not been taking adequate fluid or food in the last few days. No more diarrheas at the moment. She denies any abdominal pain, nausea or vomiting. The diarrhea is actually an old problem, which is good to be followed up outpatient. She is taking orally, and tolerating this. The blood pressures have been stable, with mild tachycardia so far. Medications: Medication Review Details: Reviewed patient's home medication ensure that she takes metoprolol, most other antihypertensives, in addition to Synthroid. Vitals/I&O/Wt Last Vital Signs Temp 98.0 F 01/14/25 05:30 Pulse 116 H 01/14/25 06:15 Resp 15 01/14/25 06:15 BP 115/62 01/14/25 06:15 Pulse Ox 99 01/14/25 05:30 O2 Del Method Room Air 01/13/25 13:36 01/13/25 01/14/25 01/14/25 22:59 06:59 14:59 Intake Total 1250 / 4550.97 1740 / 6290.97 Output Total 200 / 200 Balance 1050 / 4350.97 1740 / 6090.97 Weight last 48 hrs Weight 59.421 kg Weight 59.931 kg Weight 56.699 kg Physical Exam 2 Narrative: General: Awake and alert. No obvious respiratory distress. Neuro/Psych: Cooperative. Oriented x 3. Skin: Remarkably improved dehydration. Mucous membrane adequately moist. CVS: Rhythm: Mildly tachycardic, with heart rate in the 100s. Breathing, otherwise. GI: Soft and non-tender abdomen. No obvious organomegaly. Extremities: Bilateral equal pulses. No obvious pitting pedal edema. Data 01/14/25 09:10 01/14/25 09:10 Other Labs: All Labs last 24 hrs except CBC/BMP 3 01/13/25 01/14/25 01/14/25 19:43 04:36 09:10 RBC 2.37 L MCV 101.7 H MCH 31.2 MCHC 30.7 RDW 17.2 H MPV 10.5 H Neut % (Auto) 78.9 Lymph % (Auto) 13.5 [place] % (Auto) 6.8 Eos % (Auto) 0.1 Baso % (Auto) 0.3 Neut # (Auto) 5.44 Lymph # (Auto) 0.9 [place] # (Auto) 0.5 Eos # (Auto) 0.0 Baso # (Auto) 0.0 Nucleated RBC % (auto) 0 Nucleated RBCs # 0.0 GFR Calculation Not Reportable Not Reportable Calculated Osmolality 306 H 301 H Lactate 2.7 H Calcium 7.3 L 7.2 L Magnesium 1.3 L A&P Assessment and plan 1. Acute hyperkalemia: 2. Acute kidney injury: 3. Acute prerenal azotemia: 4. Hypotension due to hypovolemia: 5. Severe dehydration: 6. Irritable bowel syndrome with diarrhea: 7. Chronic diarrhea: 8. Hypomagnesemia: Plan: 1. Acute hypotension due to acute hypovolemia due to apparent worsening of chronic diarrhea: The diarrhea has apparently stopped. Hypovolemia is currently corrected. We can replace magnesium orally, recheck in the morning. 2. Acute renal failure with associated hyperkalemia: Also noted, patient has low bicarb, therefore signifying apparent corrected metabolic acidosis: For this, I will start patient on some cautious rehydration with bicarb x 2 L only. Repeat BMP in the morning. Hyperkalemia apparently due to acute change because from use of spironolactone and potassium replacement at home. Patient's further clarifies that she has already been taking the Lasix mentioned in her home meds, which is actually ordered for pedal edema on a PRN basis. Continue to hold oral spironolactone and potassium. Upon discharge, patient home spironolactone may need to be discontinued, as well as the oral potassium. 3. Mild hypomagnesemia: Continue to replace per magnesium orally. 4. Severe dehydration: Resolved at this time. See #1 above. 5. Chronic diarrhea, likely due to known irritable bowel syndrome: This is an old & known problem, and obviously remarkably contributed to the 3 above mentioned problems. Will treat empirically with home medications, as adjusted. Of note, patient is requesting for gastric electric stimulation test, which appears to be a test that was ordered outpatient. This is not a test, if ever, that is done on inpatient basis here, as I checked. More so, I am not familiar with that. I think this can be done outpatient in [place] or wherever it was really ordered to be done. I will inform patient about this tomorrow morning. 6. Essential hypertension: Patient appears to currently takes some antihypertensives. The heart rate is on the higher side. Resume patient's metoprolol at this time, while monitoring the blood pressure closely. Disposition: Anticipate discharge tomorrow. In the meantime, transfer patient to the medical floor, where we will continue all other above-mentioned treatment plans. Continue ongoing telemetry management monitoring. PDMP PDMP Reviewed: Not Reviewed Attestations 2 Medical Necessity Statement*: Patient will require continued correction of the metabolic derangements with electrolytes, as well as get further control of other concomitant symptoms, as listed above. Also admitted patient's mild elevated magnesium, which will need to be replaced, and recheck tomorrow morning. See assessment and plan above, for more details. Coding Level of Care Code 33707 Diagnoses Acute hyperkalemia E87.5 Acute kidney injury N17.9 Acute prerenal azotemia N19 Hypotension due to hypovolemia E86.1 Severe dehydration E86.0 Irritable bowel syndrome with diarrhea K58.0 Chronic diarrhea K52.9 Hypomagnesemia E83.42
[2025-01-14 09:17] LABS: Hemoglobin 8.30 g/dL (11.27-16.99)
[2025-01-14 09:55] LABS: Anion Gap 15.7 (5-19); Blood Urea Nitrogen 32 mg/dL (8-23); Calcium 7.2 mg/dL (8.5-10.5); Carbon Dioxide 11 mmol/L (22-29); Chloride 120 mmol/L (98-107); Glucose 97 mg/dL (65-115); Osmolality Calculated 301 mOsm/kg (285-295); Potassium 4.7 mmol/L (3.5-5.1); Sodium 142 mmol/L (136-145)
[2025-01-15] VITALS (9 sets, daily range): BP systolic 95–113; BP diastolic 55–66; PULSE 92–104; RESP 15–24; TEMP 36.4–36.9; O2SAT 93–99
[2025-01-15 06:00] LABS: Anion Gap 13.1 (5-19); Blood Urea Nitrogen 29 mg/dL (8-23); Calcium 6.5 mg/dL (8.5-10.5); Carbon Dioxide 15 mmol/L (22-29); Chloride 116 mmol/L (98-107); Glucose 89 mg/dL (65-115); Osmolality Calculated 295 mOsm/kg (285-295); Potassium 4.1 mmol/L (3.5-5.1); Sodium 140 mmol/L (136-145)
[2025-01-15 08:16] LABS: Magnesium 1.1 mg/dL (1.7-2.3)
[2025-01-15] MEDS: magnesium sulfate premix 2 GM/50 ML PIGGYBACK IV (09:55)
--- NOTE | 2025-01-15 10:50 | PC.SOCIAL ---
IMM Updated Updated pt on IMM. No questions voiced. Provided pt a copy. Initialed, dated, & timed a copy & placed in chart.
[2025-01-15 13:27] LABS: Magnesium 1.9 mg/dL (1.7-2.3)
--- NOTE | 2025-01-15 14:15 | PM.DCS ---
Discharge Providers Date of Admission: 01/13/25 13:00 Date of Discharge: January 15, 2025 Attending Provider at Admission: Luis Morales Attending Provider at Discharge: Andreas Meza MD Primary Care Provider: Torin Sandhu MD Diagnoses at Discharge Discharge Diagnosis 1. Acute hyperkalemia: 2. Acute kidney injury: 3. Acute prerenal azotemia: 4. Hypotension due to hypovolemia: 5. Severe dehydration: 6. Irritable bowel syndrome with diarrhea: 7. Chronic diarrhea: 8. Hypomagnesemia: Reason for Visit Reason for Visit: weakness - confusion Discharge Data Studies Completed and Pending Completed Studies During Hospitalization Category Date Time Status XR chest 1V portable [id number] Stat Exams 01/13/25 09:39 Completed Pending at discharge Category Date Time Status Basic Metabolic Panel AM LABS Lab 01/16/25 04:00 Ordered Blood Culture Stat Lab 01/13/25 09:55 Received Radiology Impressions Chest X-Ray 01/13/25 09:39 IMPRESSION: 1. No acute cardiopulmonary finding. Laboratory Results WBC 6.90 10^3/uL (3.29-11.43) 01/14/25 04:36 RBC 2.37 10^6/uL (3.85-5.65) L 01/14/25 04:36 Hgb 8.30 g/dL (11.27-16.99) L 01/14/25 09:10 Hct 24.1 % (36-47) L 01/14/25 04:36 MCV 101.7 fl (85-98) H 01/14/25 04:36 MCH 31.2 pg (27-33) 01/14/25 04:36 MCHC 30.7 g/dL (30-55) 01/14/25 04:36 RDW 17.2 % (12.1-15.1) H 01/14/25 04:36 Plt Count 144 10^3/cmm (157-399) L D 01/14/25 04:36 MPV 10.5 fL (7.4-10.4) H 01/14/25 04:36 Neut % (Auto) 78.9 % 01/14/25 04:36 Lymph % (Auto) 13.5 % 01/14/25 04:36 [place] % (Auto) 6.8 % 01/14/25 04:36 Eos % (Auto) 0.1 % 01/14/25 04:36 Baso % (Auto) 0.3 % 01/14/25 04:36 Neut # (Auto) 5.44 10^3/uL (1.8-7.7) 01/14/25 04:36 Lymph # (Auto) 0.9 10^3/uL (0.8-4.8) 01/14/25 04:36 [place] # (Auto) 0.5 10^3/uL (0.2-0.9) 01/14/25 04:36 Eos # (Auto) 0.0 10^3/uL (0.0-0.8) 01/14/25 04:36 Baso # (Auto) 0.0 10^3/uL (0.0-0.1) 01/14/25 04:36 Nucleated RBC % (auto) 0 % 01/14/25 04:36 Total Counted 100 (0-100) 01/13/25 09:50 Atypical Lymphs % 0.0 % (0-5) 01/13/25 09:50 Absolute Neutrophils 9.0 10^3/cmm (1.4-6.5) H 01/13/25 09:50 Segmented Neutrophils 42 % 01/13/25 09:50 Band Neutrophils 33.0 % 01/13/25 09:50 Absolute Lymphocytes 2.3 10^3/cmm (1.2-3.4) 01/13/25 09:50 Lymphocytes (Manual) 19 % 01/13/25 09:50 Monocytes (Manual) 5.0 % 01/13/25 09:50 Absolute Monocytes 0.6 10^3/cmm (0.1-0.6) 01/13/25 09:50 Eosinophils (Manual) 1 % 01/13/25 09:50 Absolute Eosinophils 0.1 10^3/cmm (0.0-0.7) 01/13/25 09:50 Basophils (Manual) 0.0 % 01/13/25 09:50 Absolute Basophils 0.0 10^3/cmm (0.0-0.2) 01/13/25 09:50 Nucleated RBCs # 0.0 /100WBC 01/14/25 04:36 Platelet Estimate Normal (Normal) 01/13/25 09:50 Poikilocytosis 1+ H 01/13/25 09:50 Anisocytosis 1+ H 01/13/25 09:50 Macrocytosis 1+ H 01/13/25 09:50 Sodium 140 mmol/L (136-145) 01/15/25 05:16 Potassium 4.1 mmol/L (3.5-5.1) 01/15/25 05:16 Chloride 116 mmol/L (98-107) H 01/15/25 05:16 Carbon Dioxide 15 mmol/L (22-29) L 01/15/25 05:16 Anion Gap 13.1 (5-19) 01/15/25 05:16 BUN 29 mg/dL (8-23) H 01/15/25 05:16 Creatinine 1.5 mg/dL (0.5-0.9) H 01/15/25 05:16 GFR Calculation Not Reportable 01/15/25 05:16 Glucose 89 mg/dL (65-115) 01/15/25 05:16 POC Glucose 165 mg/dL (70-110) H 01/13/25 16:32 Calculated Osmolality 295 mOsm/kg (285-295) 01/15/25 05:16 Lactic Acid 3.5 mmol/L (0.5-2.2) H 01/13/25 09:50 Lactic Acid (Sepsis) 4.5 mmol/L (0.5-2.2) H* 01/13/25 16:59 Lactate 2.7 mmol/L (0.5-2.2) H 01/13/25 19:43 Calcium 6.5 mg/dL (8.5-10.5) L 01/15/25 05:16 Magnesium 1.9 mg/dL (1.7-2.3) 01/15/25 12:45 Total Bilirubin 0.5 mg/dL (0.15-1.2) 01/13/25 10:55 AST 11 U/L (0-32) 01/13/25 10:55 ALT 9 U/L (0-33) 01/13/25 10:55 Alkaline Phosphatase 133 U/L (35-105) H 01/13/25 10:55 Creatine Kinase 17 U/L (26-192) L 01/13/25 10:55 Total Protein 4.9 g/dL (6.6-8.7) L 01/13/25 10:55 Albumin 2.8 g/dL (3.5-5.2) L 01/13/25 10:55 Globulin 2.1 g/dL (1.3-4.6) 01/13/25 10:55 Urine Color Dark yellow (Yellow) A 01/13/25 10:10 Urine Appearance Clear (CLEAR) 01/13/25 10:10 Urine pH 5.0 (5-7) 01/13/25 10:10 Ur Specific [place] 1.017 (1.005-1.030) 01/13/25 10:10 Urine Protein Trace (Negative) A 01/13/25 10:10 Urine Glucose (UA) Negative (Normal) 01/13/25 10:10 Urine Ketones Negative (Negative) 01/13/25 10:10 Urine Blood Negative (Negative) 01/13/25 10:10 Urine Nitrate Negative (Negative) 01/13/25 10:10 Urine Bilirubin 1+ (Negative) H 01/13/25 10:10 Urine Urobilinogen 0.2 mg/dL (Negative) 01/13/25 10:10 Ur Leukocyte Esterase Trace (Negative) A 01/13/25 10:10 Urine RBC 0-2 /hpf (0-2) 01/13/25 10:10 Urine WBC 0-5 /hpf (0-5) 01/13/25 10:10 Ur Squamous Epith Cells 6-10 /hpf (0-5) 01/13/25 10:10 Amorphous Sediment Not Reportable 01/13/25 10:10 Urine Bacteria None seen /hpf (NONE) 01/13/25 10:10 Hyaline Casts 28.94 /lpf 01/13/25 10:10 Coarse Granular Casts 0-4 /lpf H 01/13/25 10:10 Vitals Last Vital Signs Temp 97.5 F L 01/15/25 12:00 Pulse 92 01/15/25 12:00 Resp 18 01/15/25 12:00 BP 95/57 01/15/25 12:00 Pulse Ox 95 01/15/25 12:00 O2 Del Method Room Air 01/15/25 12:00 Discharge Plan Discharge Patient Disposition: Home Condition: Stable Prescriptions: New magnesium oxide 400 mg (241.3 mg magnesium) Tablet 400 mg PO DAILY Qty: 15 0RF Continued hydrocodone-acetaminophen 7.5-325 mg tablet 1 tab PO BID PRN (Reason: pain) 30 Days Qty: 60 0RF metoclopramide HCl 10 mg tablet 10 mg PO Q6H PRN (Reason: nausea and vomiting) Qty: 60 1RF cholestyramine (with sugar) 4 gram powder See Rx Instructions .ROUTE .COMPLEX Qty: 378 3RF Dose Instruction: take TWO grams BY MOUTH TWICE DAILY with A meal; AVOID other meds WITHIN one hour BEFORE OR 4-6 hours AFTER DOSE Rx Instructions: Take TWO grams BY MOUTH TWICE DAILY with A meal; AVOID other meds WITHIN one hour BEFORE OR 4-6 hours AFTER DOSE. promethazine 25 mg tablet 25 mg PO Q8H PRN (Reason: Nausea) Qty: 30 3RF diphenoxylate-atropine 2.5-0.025 mg tablet 1 tab PO BID PRN (Reason: diarrhea) 30 Days Qty: 60 2RF triamcinolone acetonide 0.1 % cream 1 applic topical DAILY PRN (Reason: Skin Irritation) Qty: 80 1RF duloxetine 30 mg capsule,delayed release(DR/EC) 30 mg PO DAILY Qty: 30 4RF pregabalin 150 mg capsule 150 mg PO DAILY Qty: 60 5RF ferrous gluconate 324 mg (37.5 mg iron) tablet 324 mg PO BID Qty: 60 0RF levothyroxine 125 mcg tablet 125 mcg PO DAILY diclofenac sodium 75 mg tablet,delayed release (DR/EC) 75 mg PO DAILY PRN (Reason: Pain) Xarelto 10 mg tablet 10 mg PO DAILY lidocaine 5 % ointment 1 applic topical DAILY PRN (Reason: Pain) megestrol 400 mg/10 mL (40 mg/mL) Suspension 400 mg PO DAILY Qty: 30 2RF midodrine 5 mg Tablet 10 mg PO TID Qty: 90 2RF metoprolol tartrate 25 mg Tablet 12.5 mg PO DAILY Qty: 60 2RF multivitamin with folic acid [Thera] 400 mcg Tablet 1 tab PO DAILY Qty: 30 2RF pantoprazole 40 mg tablet,delayed release (DR/EC) 40 mg PO BID Qty: 60 2RF colestipol 1 gram tablet 1 g PO BID Changed furosemide 40 mg tablet 20 mg PO BID PRN (Reason: swelling) Qty: 30 0RF Discontinued potassium chloride 10 mEq capsule, extended release 20 meq PO BID spironolactone 25 mg tablet 25 mg PO DAILY Discharge Order = DC NOW: Discharge Order (Routine); Ordered 01/15/25 Ordered By: Andreas Meza Referrals: Torin Sandhu MD [Primary Care Provider, [facility]] Discharge Diet: Usual diet Discharge Activity: Resume usual activity and Increase activity as tolerated Patient Instructions: Opioid Safety, Patient Portal & [facility] Instructions Activity Restrictions/Additional Instructions: Follow-up with your primary care provider within the next 5 to 10 days for further evaluation. Advised to take medications as prescribed; stop spironolactone and potassium at this time, till further review by your PCP. Lasix to be taken once daily on a as needed basis. May return to ER if symptoms occur, or if symptoms worsen, and if it is indeed an emergency. Otherwise, follow-up with primary care provider Coding Level of Care Code Acute Code for Chg Fwd Diagnoses Acute hyperkalemia E87.5 Acute kidney injury N17.9 Acute prerenal azotemia N19 Hypotension due to hypovolemia E86.1 Severe dehydration E86.0 Irritable bowel syndrome with diarrhea K58.0 Irritable bowel syndrome type: with diarrhea Chronic diarrhea K52.9 Hypomagnesemia E83.42
[2025-01-15 15:17] LABS: Bacillus cereus group Not Detected (NOT DETECT); Bacillus subtillis group Not Detected (NOT DETECT); Corynebacterium Not Detected (NOT DETECT); Cutibacterium acnes (P.acnes) Not Detected (NOT DETECT); Enterococcus faecalis Not Detected (NOT DETECT); Enterococcus faecium Not Detected (NOT DETECT); Listeria Not Detected (NOT DETECT); Micrococcus Not Detected (NOT DETECT); Pan Candida Not Detected (NOT DETECT); Pan Gram-Negative Not Detected (NOT DETECT); Staphylococcus epidermidis Not Detected (NOT DETECT); Staphylococcus lugdunensis Not Detected (NOT DETECT); Staphylococcus species Not Detected (NOT DETECT); Streptococcus anginosus group Not Detected (NOT DETECT); Streptococcus pyogenes Not Detected (NOT DETECT); Streptococcus species Not Detected (NOT DETECT)
--- NOTE | 2025-01-15 17:08 | P.PN_ITS ---
Subjective 2 Subjective: Nothing new. Patient reports feeling much better today. However, later in the evening, she complained of difficulty walking. She reports that this is not too different from what she used to have at home. Vitals/I&O/Wt Last Vital Signs Temp 98.3 F 01/15/25 16:00 Pulse 92 01/15/25 16:00 Resp 17 01/15/25 16:00 BP 99/65 01/15/25 16:00 Pulse Ox 98 01/15/25 16:00 O2 Del Method Room Air 01/15/25 16:00 01/15/25 01/15/25 01/15/25 06:59 14:59 22:59 Intake Total 1050 / 1830 290 / 290 Output Total / Balance 1048 / 1828 290 / 290 Weight last 48 hrs Weight 61.887 kg Weight 59.421 kg Physical Exam 2 Narrative: General awake and alert. Cooperative. Chest: No obvious respiratory distress. Abdomen: Soft. Nontender. Extremities: Stable bilateral 2+ pedal edema. Data 01/14/25 09:10 01/15/25 05:16 Other Labs: All Labs last 24 hrs except CBC/BMP 3 01/15/25 01/15/25 01/15/25 05:06 05:16 12:45 GFR Calculation Not Reportable Calculated Osmolality 295 Calcium 6.5 L Magnesium 1.1 L 1.9 Micro: Microbiology 01/13/25 09:55 Blood Culture - Preliminary Blood A&P Assessment and plan 1. Hypomagnesemia: 2. Acute hyperkalemia: 3. Acute kidney injury: 4. Hypotension due to hypovolemia: 5. Physical deconditionin. Weakness generalized: 7. Chronic diarrhea: 8. Severe dehydration: 9. History of lymphoma: 10. IBS (irritable bowel syndrome): Plan: 1. Acute renal failure with hypovolemia caused by excessive diarrhea, resulting hyperkalemia: These are all resolved. Kidney function is still marginally high, with a BUN of 29 and creatinine of 1.5. This represents remarkable improvement. 2. Acute hypomagnesemia: Patient got 2 g of IV magnesium x 1, and oral magnesium oxide 200 mg twice daily. These helped bring the magnesium level within normal limits from 1.1 to 1.9 as at this afternoon. 3. Physical deconditioning in the face of known chronic general weakness: I had actually discharged patient earlier in the afternoon. However, she was not able to walk without significant assistance from physical therapy. Given this, will watch patient for for a day more, and evaluate her for possible discharge/referral to SNF. Continue physical therapy eval and treat. All other chronic medical problems mentioned above all within old controlled limits/stable. PDMP PDMP Reviewed: Not Reviewed Attestations 2 Medical Necessity Statement*: Frail elderly lady with chronic comorbidities, apparent recovered significantly from acute hypovolemia from excessive diarrhea. However, physically, she is very deconditioned. Requires some physical therapy and possible evaluation for referral to SNF. Coding Level of Care Code 92378 Diagnoses Hypomagnesemia E83.42 Acute hyperkalemia E87.5 Acute kidney injury N17.9 Hypotension due to hypovolemia E86.1 Physical deconditioning R53.81 Weakness generalized R53.1 Chronic diarrhea K52.9 Severe dehydration E86.0 History of lymphoma Z85.72 IBS (irritable bowel syndrome) K58.9
[2025-01-16] VITALS (8 sets, daily range): BP systolic 70–112; BP diastolic 44–63; PULSE 87–96; RESP 16–20; TEMP 36.7–37.1; O2SAT 94–96
[2025-01-16 06:23] LABS: Anion Gap 13.6 (5-19); Blood Urea Nitrogen 25 mg/dL (8-23); Calcium 6.7 mg/dL (8.5-10.5); Carbon Dioxide 14 mmol/L (22-29); Chloride 118 mmol/L (98-107); Glucose 83 mg/dL (65-115); Osmolality Calculated 298 mOsm/kg (285-295); Potassium 3.6 mmol/L (3.5-5.1); Sodium 142 mmol/L (136-145)
--- NOTE | 2025-01-16 13:09 | P.DS_ITS ---
Discharge Providers Date of Admission: 01/13/25 13:00 Date of Discharge: January 16, 2025 Attending Provider at Admission: Luis Morales Attending Provider at Discharge: Andreas Meza MD Primary Care Provider: Torin Sandhu MD Diagnoses at Discharge Discharge Diagnosis 1. Hypomagnesemia: 2. Acute hyperkalemia: 3. Acute kidney injury: 4. Hypotension due to hypovolemia: 5. Physical deconditionin. Weakness generalized: 7. Chronic diarrhea: 8. Severe dehydration: 9. History of lymphoma: 10. Irritable bowel syndrome with diarrhea: Reason for Visit Reason for Visit: weakness - confusion Brief History: Patient presented with apparent severe dehydration manifesting in hypovolemic hypotension. She was aggressively rehydrated with IV fluid, and monitor closely. Deficient electrolytes were replaced. All parameters corrected with close monitoring. Hospital Course Hospital Course As at yesterday, patient was actually discharged. However, the was concerned about her poor ability to ambulate briskly. Consequently, I have held the discharge till this morning, pending further evaluation by physical therapy. Reevaluated this morning, patient noted to be marginally hyportensive. However, upon further review, this is noted to be an old problem, for which she takes daily midodrine at home. Her poor ambulation also is an an old and stable problem, for which she has walking devices at home. However, evaluation for SNF placement/referral was recommended. However, patient and adamantly declined this. She gets physical therapy at home, anyway, with home health. I think this should be fine. Given satisfactory resolution of all active acute problems upon admission, patient therefore deemed fit and stable and stable enough to be discharged home today. See my discharge orders and discharge instructions for more details. Physical Exam Narrative: General: Awake and alert. Cooperative. Respiration: No obvious respiratory distress. Abdomen: Soft. Non-distended. Non-tender. Extremities: No obvious pitting pedal edema. Skin: No obvious signs of dehydration. Mucous membranes very moist. No obvious new rashes or any unusual skin lesion(s). Urinary Catheter Management: Graham: Cath Placed During This Visit: yes, but has since been removed by the nurse Reason for Continuing Indwelling Catheter: Decision to DC Catheter Urinary Catheter Date of Insertion: 01/15/25 Urinary Catheter Time of Insertion: 23:00 Date Urinary Catheter Removed: 01/16/25 Time Urinary Catheter Discontinued: 10:40 Discharge Data Studies Completed and Pending Completed Studies During Hospitalization Category Date Time Status XR chest 1V portable [id number] Stat Exams 01/13/25 09:39 Completed Pending at discharge Category Date Time Status Blood Culture Stat Lab 01/13/25 10:55 Received Radiology Impressions Chest X-Ray 01/13/25 09:39 IMPRESSION: 1. No acute cardiopulmonary finding. Laboratory Results Today's BUN is 25, vs 44 as @ 3 days ago. Creatinine is 1.1 vs 2.2 as @2 days ago. Sodium is 3.6, and 4.1 as a stay, vs 7.4 as @3 days ago. Magnesium is 1.9 versus 1.3 as @2 days ago Vitals Last Vital Signs Temp 98.4 F 01/16/25 12:02 Pulse 90 01/16/25 12:02 Resp 16 01/16/25 12:02 BP 102/61 01/16/25 12:02 Pulse Ox 95 01/16/25 12:02 O2 Del Method Room Air 01/16/25 12:02 Discharge Plan Discharge Patient Disposition: Home Health Service Condition: Stable Prescriptions: New magnesium oxide 400 mg (241.3 mg magnesium) Tablet 400 mg PO DAILY Qty: 15 0RF diltiazem HCl [Cardizem] 30 mg tablet 30 mg PO Q8H Qty: 60 3RF Continued hydrocodone-acetaminophen 7.5-325 mg tablet 1 tab PO BID PRN (Reason: pain) 30 Days Qty: 60 0RF metoclopramide HCl 10 mg tablet 10 mg PO Q6H PRN (Reason: nausea and vomiting) Qty: 60 1RF cholestyramine (with sugar) 4 gram powder See Rx Instructions .ROUTE .COMPLEX Qty: 378 3RF Dose Instruction: take TWO grams BY MOUTH TWICE DAILY with A meal; AVOID other meds WITHIN one hour BEFORE OR 4-6 hours AFTER DOSE Rx Instructions: Take TWO grams BY MOUTH TWICE DAILY with A meal; AVOID other meds WITHIN one hour BEFORE OR 4-6 hours AFTER DOSE. promethazine 25 mg tablet 25 mg PO Q8H PRN (Reason: Nausea) Qty: 30 3RF diphenoxylate-atropine 2.5-0.025 mg tablet 1 tab PO BID PRN (Reason: diarrhea) 30 Days Qty: 60 2RF triamcinolone acetonide 0.1 % cream 1 applic topical DAILY PRN (Reason: Skin Irritation) Qty: 80 1RF duloxetine 30 mg capsule,delayed release(DR/EC) 30 mg PO DAILY Qty: 30 4RF pregabalin 150 mg capsule 150 mg PO DAILY Qty: 60 5RF ferrous gluconate 324 mg (37.5 mg iron) tablet 324 mg PO BID Qty: 60 0RF levothyroxine 125 mcg tablet 125 mcg PO DAILY diclofenac sodium 75 mg tablet,delayed release (DR/EC) 75 mg PO DAILY PRN (Reason: Pain) Xarelto 10 mg tablet 10 mg PO DAILY lidocaine 5 % ointment 1 applic topical DAILY PRN (Reason: Pain) megestrol 400 mg/10 mL (40 mg/mL) Suspension 400 mg PO DAILY Qty: 30 2RF midodrine 5 mg Tablet 10 mg PO TID Qty: 90 2RF multivitamin with folic acid [Thera] 400 mcg Tablet 1 tab PO DAILY Qty: 30 2RF pantoprazole 40 mg tablet,delayed release (DR/EC) 40 mg PO BID Qty: 60 2RF colestipol 1 gram tablet 1 g PO BID Changed furosemide 40 mg tablet 20 mg PO BID PRN (Reason: swelling) Qty: 30 0RF Discontinued metoprolol tartrate 25 mg Tablet 12.5 mg PO DAILY Qty: 60 2RF potassium chloride 10 mEq capsule, extended release 20 meq PO BID spironolactone 25 mg tablet 25 mg PO DAILY Discharge Order = DC NOW: Discharge Order (Routine); Ordered 01/16/25 Ordered By: Andreas Meza Referrals: [facility] [Outside] Torin Sandhu MD [Primary Care Provider, Family Practice] - 01/20/25 9:30 am Referral Note: Discharge Diet: Usual diet Discharge Activity: Resume usual activity, Increase activity as tolerated and Use walker/crutches as instructed Patient Instructions: Diltiazem (By mouth), Magnesium Oxide (By mouth), Hyperkalemia (GEN), Opioid Safety, Patient Portal & [facility] Instructions Activity Restrictions/Additional Instructions: Physical therapy with home health ordered. Follow-up with your primary care provider within the next 5 to 10 days for further evaluation. Advised to take medications as prescribed; stop spironolactone and potassium at this time, at least till further review by your PCP. Lasix to be taken once daily on a as needed basis. May return to ER if symptoms occur, or if symptoms worsen, and if it is indeed an emergency. Otherwise, follow-up with primary care provider Discharge Attestations Time Spent in Discharge Care*: greater than 30 min Quality Metrics Clinical Quality Measures [ No reported AMI, CVA or VTE this stay] Coding Level of Care Code Acute Code for Chg Fwd Diagnoses Hypomagnesemia E83.42 Acute hyperkalemia E87.5 Acute kidney injury N17.9 Hypotension due to hypovolemia E86.1 Physical deconditioning R53.81 Weakness generalized R53.1 Chronic diarrhea K52.9 Severe dehydration E86.0 History of lymphoma Z85.72 Irritable bowel syndrome with diarrhea K58.0 Irritable bowel syndrome type: with diarrhea
--- OUTSIDE RECORDS SUMMARY | 2025-02-26 18:00 | XMS_ITS | Clinical Summary ---
Author Organization Unknown Care Team Providers Care Platform Power Technician Name Role Phone AUBRIE ROJAS, DG Unavailable Unavailable COLLEEN PT, PAZ Unavailable Unavailable Payers Payer Name Policy Type Policy Number Effective Date Expira tion Date [employer] MANAGED MEDICARE - [facility] [id number] Problems Condition Name Condition Details Condition Category Status Onset Date Resolution Date Last Treatment Date Treating Clinician Comments DEHYDRATION Active 2024-03 0 00:00: 00 MODERATE PROTEIN-KALEIGH JUSTINE MALNUTRITION Active - 00:00: 00 ACUTE KIDNEY FAILURE, UNSPECIFIED Active - 00:00: 00 HYPOTHYROIDI SM, UNSPECIFIED Active - 00:00: 00 OTHER ACIDOSIS Active - 00:00: 00 DEPRESSION, UNSPECIFIED Active 03-06 00:00: 00 POLYNEUROPAT HY, UNSPECIFIED Active - 00:00: 00 URINARY TRACT INFECTION, SITE NOT SPECIFIED Active - 00:00: 00 ESSENTIAL (PRIMARY) HYPERTENSION Active - 00:00: 00 MYOPATHY, UNSPECIFIED Active - 00:00: 00 ORTHOSTATIC HYPOTENSION Active - 00:00: 00 HYPOVOLEMIA Active - 00:00: 00 IRRITABLE BOWEL SYNDROME WITH DIARRHEA Active - 00:00: 00 GASTRO-ESOPH AGEAL REFLUX DISEASE WITHOUT ESOPHAGITIS Active - 00:00: 00 UNSPECIFIED OSTEOARTHRIT IS, UNSPECIFIED SITE Active - 00:00: 00 UNSPECIFIED HEMORRHOIDS Active - 00:00: 00 DYSPHAGIA, UNSPECIFIED Active - 00:00: 00 RHEUMATOID ARTHRITIS, UNSPECIFIED Active 03-06 00:00: 00 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 Active 03-06 00:00: 00 PERSONAL HISTORY OF MALIGNANT NEOPLASM OF BREAST Active 03-06 00:00: 00 PERSONAL HISTORY OF NON-HODGKIN LYMPHOMAS Active 03-06 00:00: 00 PERSONAL HISTORY OF OTHER VENOUS THROMBOSIS AND EMBOLISM Active 03-06 00:00: 00 ACQUIRED ABSENCE OF BOTH CERVIX AND UTERUS Active 03-06 00:00: 00 PRESENCE OF OTHER VASCULAR IMPLANTS AND GRAFTS Active 03-06 00:00: 00 Allergies, Adverse Reactions, Alerts Allergy Name Allergy Type Status Severity Reaction(s) Onset Date Inactive Date Treating Clinician Comments PENICILLIN Propensity to adverse reactions Active 2024-03 14:42: 08 CLINDAMYCIN HCL Propensity to adverse reactions Active 2024-03 10:18: 41 Medications Ordered Medication Name Filled Medication Name Start Date Stop Date Current Medication? Ordering Clinician Indication Dosage Frequency Signature (SIG) Comments Components Cholestyram ine Light 4 gram oral powder 2024-03 00:00: 00 Yes [id number] 2 g 2 TIMES DAILY 2 g 2 TIMES DAILY (route: oral) Med Classific ation: Cardiovas cular Therapy Agents diclofenac sodium 75 mg tablet,trung yed release 2024-03 00:00: 00 Yes [id number] 1 tablet DAILY 1 tablet DAILY (route: oral) Med Classific ation: Analgesic , Anti-infl ammatory or Antipyret ic diphenoxyla te-atropine 2.5 mg-0.025 mg tablet 2024-03 00:00: 00 Yes [id number] 1 tablet 2 TIMES DAILY 1 tablet 2 TIMES DAILY (route: oral) Med Classific ation: Gastroint estinal Therapy Agents duloxetine 30 mg capsule,del ayed release 2024-03 00:00: 00 Yes [id number] 1 capsule DAILY 1 capsule DAILY (route: oral) Med Classific ation: Central Nervous System Agents ferrous gluconate 324 mg (37.5 mg iron) tablet 2024-03 00:00: 00 Yes [id number] 1 tablet 2 TIMES DAILY 1 tablet 2 TIMES DAILY (route: oral) Med Classific ation: Electroly te Balance-N utritiona l Products furosemide 40 mg tablet 2024-03 00:00: 00 Yes [id number] 1 tablet DAILY 1 tablet DAILY (route: oral) Med Classific ation: Cardiovas cular Therapy Agents hydrocodone 7.5 mg-acetamin ophen 325 mg tablet 2024-03 00:00: 00 Yes [id number] 1 tablet 2 TIMES DAILY 1 tablet 2 TIMES DAILY (route: oral) Med Classific ation: Analgesic , Anti-infl ammatory or Antipyret ic levothyroxi ne 125 mcg tablet 2024-03 00:00: 00 Yes [id number] 1 tablet DAILY 1 tablet DAILY (route: oral) Med Classific ation: Endocrine megestrol 400 mg/10 mL (10 mL) oral suspension 2024-03 00:00: 00 Yes [id number] 400 mg DAILY 400 mg DAILY (route: oral) Med Classific ation: Weight Loss/Gain Agents metoclopram taqueria 10 mg tablet 2024-03 00:00: 00 Yes [id number] 1 tablet EVERY 6 HOURS 1 tablet EVERY 6 HOURS (route: oral) Med Classific ation: Gastroint estinal Therapy Agents metoprolol tartrate 25 mg tablet 2024-03 00:00: 00 Yes [id number] .5 tablet DAILY .5 tablet DAILY (route: oral) Med Classific ation: Cardiovas cular Therapy Agents midodrine 5 mg tablet 2024-03 00:00: 00 Yes [id number] 10 mg 3 TIMES DAILY 10 mg 3 TIMES DAILY (route: oral) Med Classific ation: Cardiovas cular Therapy Agents multivitami n with folic acid 400 mcg tablet 2024-03 00:00: 00 Yes [id number] 1 tablet DAILY 1 tablet DAILY (route: oral) Med Classific ation: Electroly te Balance-N utritiona l Products pantoprazol e 40 mg tablet,trung yed release 2024-03 00:00: 00 Yes [id number] 1 tablet 2 TIMES DAILY 1 tablet 2 TIMES DAILY (route: oral) Med Classific ation: Gastroint estinal Therapy Agents potassium chloride ER 10 mEq capsule,ext ended release 2024-03 00:00: 00 Yes [id number] 2 capsule 2 TIMES DAILY 2 capsule 2 TIMES DAILY (route: oral) Med Classific ation: Electroly te Balance-N utritiona l Products pregabalin 150 mg capsule 2024-03 00:00: 00 Yes [id number] 1 capsule DAILY 1 capsule DAILY (route: oral) Med Classific ation: Central Nervous System Agents promethazin e 25 mg tablet 2024-03 00:00: 00 Yes [id number] 1 tablet EVERY 8 HOURS 1 tablet EVERY 8 HOURS (route: oral) Med Classific ation: Respirato ry Therapy Agents spironolact one 25 mg tablet 2024-03 00:00: 00 Yes [id number] 1 tablet DAILY 1 tablet DAILY (route: oral) Med Classific ation: Cardiovas cular Therapy Agents triamcinolo ne acetonide 0.1 % topical cream 2024-03 00:00: 00 Yes [id number] Per instruc tions NEEDED Per instructio ns NEEDED (route: topical) Med Classific ation: Dermatolo gical Xarelto 10 mg tablet 2024-03 00:00: 00 Yes [id number] 1 tablet DAILY 1 tablet DAILY (route: oral) Med Classific ation: Hematolog ical Agents Vital Signs Vital Name Observation Time Observation Value Commen ts Temperature 2025-01-06 09:07:00.000 96.8 [degF] Temperature 2025-01-02 15:24:00.000 97.1 [degF] Temperature 2024-12-30 15:19:00.000 97.2 [degF] BMI (%) 2024-12-30 15:19:00.000 20 kg/m2 Height 2024-12-30 15:19:00.000 66 [in_us] Pulse 2025-01-06 09:07:00.000 87 /min Pulse 2025-01-02 15:24:00.000 81 /min Pulse 2024-12-30 15:22:00.000 110 /min O2 Saturation (%) 2025-01-06 09:07:00.000 99 % O2 Saturation (%) 2025-01-02 15:24:00.000 99 % O2 Saturation (%) 2024-12-30 15:19:00.000 99 % Respirations 2025-01-06 09:07:00.000 18 /min Respirations 2025-01-02 15:24:00.000 18 /min Respirations 2024-12-30 15:19:00.000 18 /min Weight (lbs) 2024-12-30 15:19:00.000 130 [lb_av] Systolic Blood Pressure 2025-01-06 09:11:00.000 90 mm[ Hg] Systolic Blood Pressure 2025-01-02 15:24:00.000 112 mm [Hg] Systolic Blood Pressure 2024-12-30 15:19:00.000 98 mm[ Hg] Diastolic Blood Pressure 2025-01-06 09::00.000 62 mm [Hg] Diastolic Blood Pressure 2025-01-02 15:24:00.000 82 mm [Hg] Diastolic Blood Pressure 2024-12-30 15:19:00.000 70 mm [Hg] Plan of Treatment Planned Activity Planned Date Details Comments Future Scheduled Test PHYSICAL T HERAPIST TO EVALUATE CLIENT FOR PT SERVICES AND DEVELOP PLAN OF CARE FOR PHYSICIAN SIGNATURE TO INCLUDE PHYSICAL ASSESSMENT, ESTABLISHMENT OF A PLAN OF TREATMENT OF DEHYDRATION, MODERATE PROTEIN-CALORIE MALNUTRITION, ACUTE KIDNEY FAILURE, UNSPECIFIED, HYPOTHYROIDISM, UNSPECIFIED, OTHER ACIDOSIS, DEPRESSION, UNSPECIFIED, REHABILITATION GOALS, AND EVALUATING THE HOME ENVIRONMENT FOR ACCESSIBILITY AND SAFETY AND RECOMMENDING MODIFICATION. PHYSICAL THERAPIST TO PROVIDE NECESSARY TREATMENT/MODALITIES TO ADDRESS THE PATIENT S REHABILITATION, TAOISM, MAINTENANCE NEEDS. TOTAL NUMBER OF PROJECTED THERAPY VISITS FOR EPISODE: 11 [code = PHYSICAL THERAPIST TO EVALUATE CLIENT FOR PT SERVICES AND DEVELOP PLAN OF CARE FOR PHYSICIAN SIGNATURE TO INCLUDE PHYSICAL ASSESSMENT, ESTABLISHMENT OF A PLAN OF TREATMENT OF DEHYDRATION, MODERATE PROTEIN-CALORIE MALNUTRITION, ACUTE KIDNEY FAILURE, UNSPECIFIED, HYPOTHYROIDISM, UNSPECIFIED, OTHER ACIDOSIS, DEPRESSION, UNSPECIFIED, REHABILITATION GOALS, AND EVALUATING THE HOME ENVIRONMENT FOR ACCESSIBILITY AND SAFETY AND RECOMMENDING MODIFICATION. PHYSICAL THERAPIST TO PROVIDE NECESSARY TREATMENT/MODALITIES TO ADDRESS THE PATIENT S REHABILITATION, TAOISM, MAINTENANCE NEEDS. TOTAL NUMBER OF PROJECTED THERAPY VISITS FOR EPISODE: 11] Future Scheduled Test PHYSICAL T HERAPIST TO EVALUATE PATIENT SECONDARY TO FUNCTIONAL DEFICITS/SAFETY CONCERNS. [code = PHYSICAL THERAPIST TO EVALUATE PATIENT SECONDARY TO FUNCTIONAL DEFICITS/SAFETY CONCERNS.] Future Scheduled Test PHYSICAL T HERAPIST TO ASSESS BEST PRACTICE INTERVENTIONS TO ASSIST PATIENTS TO IMPROVE OR STABILIZE MEDICAL STATUS AND PREVENT RE-HOSPITALIZATION. MEASURES INCLUDING REVIEW AND IDENTIFICATION OF CONCERNS FOR THE FOLLOWING AREAS: DEPRESSION, DRUG REGIMEN, ENVIRONMENTAL SAFETY ISSUES AND FALLS, PRESSURE ULCERS, PAIN, AND DISEASE MANAGEMENT. [code = PHYSICAL THERAPIST TO ASSESS BEST PRACTICE INTERVENTIONS TO ASSIST PATIENTS TO IMPROVE OR STABILIZE MEDICAL STATUS AND PREVENT RE-HOSPITALIZATION. MEASURES INCLUDING REVIEW AND IDENTIFICATION OF CONCERNS FOR THE FOLLOWING AREAS: DEPRESSION, DRUG REGIMEN, ENVIRONMENTAL SAFETY ISSUES AND FALLS, PRESSURE ULCERS, PAIN, AND DISEASE MANAGEMENT.] Future Scheduled Test PHYSICAL T HERAPY TO ESTABLISH /UPGRADE/DOWNGRADE THERAPEUTIC EXERCISE PROGRAM AND INSTRUCT PATIENT/CAREGIVER ON EXERCISE PRECAUTIONS WITH WRITTEN HOME PROGRAM. MAY INCLUDE PROM, AAROM, AROM, RROM APPROPRIATE TO IMPROVE FUNCTIONAL STRENGTH AND RANGE OF MOTION. [code = PHYSICAL THERAPY TO ESTABLISH /UPGRADE/DOWNGRADE THERAPEUTIC EXERCISE PROGRAM AND INSTRUCT PATIENT/CAREGIVER ON EXERCISE PRECAUTIONS WITH WRITTEN HOME PROGRAM. MAY INCLUDE PROM, AAROM, AROM, RROM APPROPRIATE TO IMPROVE FUNCTIONAL STRENGTH AND RANGE OF MOTION.] Future Scheduled Test PHYSICAL T HERAPY TO INSTRUCT PATIENT/CAREGIVER ON GAIT TRAINING TECHNIQUES USING APPROPRIATE ASSISTIVE DEVICE, PROPER BODY MECHANICS TO IMPROVE MOBILITY, AND PREVENT INJURY OF PATIENT AND/OR CAREGIVER. [code = PHYSICAL THERAPY TO INSTRUCT PATIENT/CAREGIVER ON GAIT TRAINING TECHNIQUES USING APPROPRIATE ASSISTIVE DEVICE, PROPER BODY MECHANICS TO IMPROVE MOBILITY, AND PREVENT INJURY OF PATIENT AND/OR CAREGIVER.] Future Scheduled Test PHYSICAL T HERAPY TO ASSESS AND RECOMMEND HOME SAFETY ADAPTATIONS AND EDUCATE PATIENT /CAREGIVER ON FALL PREVENTION STRATEGIES. [code = PHYSICAL THERAPY TO ASSESS AND RECOMMEND HOME SAFETY ADAPTATIONS AND EDUCATE PATIENT /CAREGIVER ON FALL PREVENTION STRATEGIES.] Goal Patient Goal - T O GET STRONGER AND IMPROVE MOBILITY Goal Provider Goal - A PHYSICAL THERAPY EVALUATION WILL BE COMPLETED AND A PLAN OF CARE WILL BE ESTABLISHED FOR THE PHYSICIAN'S SIGNATURE FOR THE ENHANCEMENT OF THE PATIENT'S REHABILITATION, TAOISM, MAINTENANCE POTENTIAL, ELIMINATION OF SAFETY HAZARDS TO INCREASE FUNCTIONAL INDEPENDENCE. Goal Provider Goal - PHYSICAL THERAPY EVALUATION TO BE COMPLETED WITH RECOMMENDATIONS AND/OR WRITTEN TREATMENT PLAN OF CARE ESTABLISHED FOR THE PHYSICIAN S SIGNATURE Goal Provider Goal - PATIENT/CAREGIVER VERBALIZES UNDERSTANDING OF THE INITIAL BEST PRACTICE RECOMMENDATIONS. PHYSICIAN TO BE NOTIFIED APPROPRIATE FOR ANY CHANGES OR COMPLICATIONS THROUGHOUT THE CERTIFICATION PERIOD. Goal Provider Goal - PATIENT/CAREGIVER WILL PERFORM THERAPEUTIC EXERCISE/S AND DEMONSTRATE PARTICIPATION IN A HOME PROGRAM. Goal Provider Goal - PATIENT/CAREGIVER WILL DEMONSTRATE IMPROVED GAIT TECHNIQUES TO MINIMIZE RISK OF INJURY. Goal Provider Goal - PATIENT/CAREGIVER WILL DEMONSTRATE/VERBALIZE UNDERSTANDING OF RECOMMENDATIONS TO INCREASE SAFETY IN THE HOME AND FALL PREVENTION. Encounters Start Date/Time End Date/Time Encounter Type Admission Type Attending [facility] Care Department Encounter ID Discharge Date Discharge Status Discharge Condition Discharge Reason Percent Goals Met 2024-12-30 00:00:00 2025-02-27 00:00:00 Outpatient NEW ADMISSION [facility] [id number] 44.44
== END 2025-01-16 16:42 | disposition home health service (06) | DRG 315 ==
LOC: ER 10:27 → ICU 13:00 → MEDSURG 01-14 15:08
PROVIDERS: Family Medicine; Admitting Provider Internal Medicine; Emergency Provider Family Medicine; PCP Family Medicine; Visit Provider Family Medicine
DX: I95.89 Other hypotension (principal); N17.9 Acute kidney failure, unspecified; E86.1 Hypovolemia; E83.42 Hypomagnesemia; E87.5 Hyperkalemia; K58.0 Irritable bowel syndrome with diarrhea; E86.0 Dehydration; E03.9 Hypothyroidism, unspecified; I10 Essential (primary) hypertension; Z79.01 Long term (current) use of anticoagulants; Z85.3 Personal history of malignant neoplasm of breast; Z85.72 Personal history of non-Hodgkin lymphomas; Z86.718 Personal history of other venous thrombosis and embolism
CPT/HCPCS: 36415; 36416; 51702; 51798; 71045; 80048; 80053; 81001; 82550; 82962; 83605; 83735; 85007; 85018; 85025; 87040; 87150; 87205; 93005; 94640; 96361; 96372; 96374; 96375; 97110; 97116; 97162; 97530; 99291; 99292; J0696; J1644; J1815; J3475; J3490; J7030; J7040; J7060; J7613; J7799; J9999

== ENCOUNTER → 2025-01-27 16:34 | Outpatient (BNVA) | payer MEDICARE, SELFPAY | PROVIDERS: PCP Family Medicine; Visit Provider Family Medicine | DX: E03.9 Hypothyroidism, unspecified (principal); I10 Essential (primary) hypertension; K92.2 Gastrointestinal hemorrhage, unspecified | CPT/HCPCS: 80053; 84443; 85025 ==